=== PATIENT | female | born 1960 | race African-American/Black ===

== ENCOUNTER 2020-07-11 14:03 | Inpatient (IN) | payer MEDICARE, MEDICAID, SELFPAY ==
[2020-07-11] VITALS (10 sets, daily range): BP systolic 111–154; BP diastolic 55–100; PULSE 73–91; RESP 16–25; TEMP 36.1–36.3; O2SAT 89–94; BMI 54.5
--- NOTE | ~2020-07-11 | XR_ITS ---
EXAMINATION: XR chest 2V DATE: 07/11/2020 15:31 INDICATION: Shortness of breath. TECHNIQUE: Frontal and lateral views of the chest were obtained. COMPARISON: Chest 2 views 09/08/2019, chest CT 09/08/2019 FINDINGS: There is a diffuse interstitial pattern, consistent with mild pulmonary edema. No pleural e ffusion or pneumothorax. Cardiomegaly is noted. IMPRESSION: 1. Mild pulmonary edema. 2. Cardiomegaly. Reviewed, dictated and finalized at location A.
--- NOTE | ~2020-07-11 | XR_ITS ---
EXAMINATION: XR chest 1V portable DATE: 07/16/2020 20:19 INDICATION: Increasing hypoxia. TECHNIQUE: A single frontal view of the chest was obtained. COMPARISON: Chest single view 07/15/2020, chest CT 07/12/2020, 09/08/2019 FINDINGS: There are perihilar interstitial opacities in the lungs, consistent with mild pulmonary cara ma. No pleural effusion or pneumothorax. Cardiomegaly is noted. There is hilar and bilateral mediasti nal lymphadenopathy. IMPRESSION: 1. Mild pulmonary edema. 2. Cardiomegaly. 3. Chronic mediastinal and bilateral hilar lymphadenopathy, which may be reactive lymphadenopathy suc h as sarcoid or malignancy such as lymphoma. Reviewed, dictated and finalized at location A. IMPRESSION: 1. Mild pulmonary edema. 2. Cardiomegaly. 3. Chronic mediastinal and bilateral hilar lymphadenopathy, which may be reacti ve lymphadenopathy such as sarcoid or malignancy such as lymphoma.
--- NOTE | ~2020-07-11 | XR_ITS ---
XR chest 1V portable DATE: 07/18/2020 06:12 INDICATION: Hypoxia TECHNIQUE: Portable AP chest on 07/18/2020 at 0534 hours COMPARISON: 07/16/2020 portable AP chest at 2016 hours FINDINGS: There is cardiomegaly and pulmonary vascular congestion and redistribution, mild prominence of the minor fissure. Findings are consistent with mild congestive heart failure. No pleural effusio n or pneumothorax is evident. Bilateral hilar prominence; mediastinal and bilateral hilar lymphadenopathy was reported on 07/12/2020 CT pulmonary scan IMPRESSION: Mild congestive heart failure Reviewed, dictated and finalized at location A.
--- NOTE | ~2020-07-11 | CT_ITS ---
EXAMINATION: CTA chest PE protocol DATE: 07/12/2020 09:36 CDT INDICATION: Lung mass TECHNIQUE: Computed tomographic angiography (CTA) of the chest was performed with 100 mL Omnipaque-35 0 intravenous contrast. The dose-length product was 953.47 mGy-cm. Maximum intensity projection 3D-re constructions of the aorta and other arteries were constructed by the technologist on a separate work station. Automated exposure control and iterative reconstruction technique were employed. COMPARISON: CT dated 09/08/2019. FINDINGS: There are enlarged pulmonary arteries consistent with pulmonary hypertension. The study is technically adequate without evidence for pulmonary embolism. Cardiomegaly. No significant pleural or pericardial effusion. There is physiologic pericardial fluid. There is mediastinal and bilateral hil ar lymphadenopathy unchanged. 1 some mottle limits evaluation of the upper abdomen. No gross abnormal ities. There is emphysema. 13 mm right upper lobe nodule without significant change. There is a 7 mm left perifissural nodule, image 71 without significant change. Small wedge-shaped right middle lobe n odule, significantly decreased in size, likely atelectasis/scarring. There is dependent atelectasis. No endobronchial lesions. Groundglass nodule in the left upper lobe seen on prior examination not def initely visualized on the current study. 9 mm left lower lobe nodule, image 84, unchanged. Mild thora cic spondylosis. No acute osseous abnormality. IMPRESSION: 1. No evidence for pulmonary embolism. 2: Bilateral pulmonary nodules are stable measuring up to 13 mm in the right upper lobe. Consider fol low-up PET/CT examination or CT chest in 6 months. 3: Moderate emphysema. 4: Mediastinal and bilateral hilar lymphadenopathy. Cannot exclude metastatic disease. 5: Pulmonary arterial hypertension. Reviewed, dictated and finalized at location A. IMPRESSION: 1. No evidence for pulmonary embolism. 2: Bilateral pulmonary nodules are stable measuring up to 13 mm in the right up per lobe. Consider follow-up PET/CT examination or CT chest in 6 months. 3: Moderate emphysema. 4: Mediastinal and bilateral hilar lymphadenopathy. Cannot exclude metastatic d isease. 5: Pulmonary arterial hypertension.
--- NOTE | ~2020-07-11 | XR_ITS ---
EXAMINATION: XR chest 1V portable EXAM DATE: 07/15/2020 05:55 INDICATION: CHF. TECHNIQUE: Portable AP frontal chest x-ray was obtained. There is no prior study for comparison. FINDINGS: The cardiac silhouette is enlarged. There is pulmonary vascular congestion. The main, centr al pulmonary arteries are dilated which can indicate elevated pulmonary arterial pressure, pulmonary arterial hypertension. There is indistinct reticulation with a bibasal predominance which may indica te pulmonary edema. Right upper lobe pulmonary nodule measuring about 1 cm. There are bony degenerati ve changes. IMPRESSION: 1. Congestive changes, consistent with mild CHF exacerbation. 2. Right upper lobe nodule. Reviewed, dictated and finalized at location A.
--- NOTE | 2020-07-11 14:13 | ECG_ITS ---
Measurements Intervals [place] Rate: 80 P: 50 ND: 149 QRS: -21 QRSD: 99 T: 95 QT: 379 QTc: 437 Interpretive Statements SINUS RHYTHM WITH SINUS ARRHYTHMIA FREQUENT ATRIAL PREMATURE COMPLEXES DELAYED PRECORDIAL R/S TRANSITION BORDERLINE ST-T WAVE ABNORMALITY- HIGH LATERAL LEADS BASELINE ARTIFACT- I, II, III, AVR, AVL, AVF ABNORMAL ECG Electronically Signed On 07-11-2020 14:25:58 CDT by Jett Hopkins D.O.
--- NOTE | 2020-07-11 14:54 | PC.NURSE ---
PT DIFFICULT STICK, STUCK BY FLAKO AND RN, PHLEBOTOMY CONTACTED AT THIS TIME.
--- NOTE | 2020-07-11 14:55 | PC.NURSE ---
called lab to draw blood at 1455
[2020-07-11 14:58] LABS: Alveolar/Arterial O2 Gradient 136.2 mmHg; Base Excess ABG 1.7 mEq/l (+/-2.0); Carboxyhemoglobin 1.4 % THb (0-2.0); Fractional Inspired Oxygen 36 %; HCO3 ABG 27.3 mEq/l (22.0-26.0); Methemoglobin ABG 0.4 %THb (0-1.5); Oxygen Content ABG 10.5 %vol (16.0-22.0); Oxygen Saturation ABG 91.6 % (95.0-100.0); Oxyhemoglobin 86.1 % THb (90.0-100.0); PCO2 ABG 48.6 mmHg (35.0-45.0); PO2 ABG 64.1 mmHg (80.0-100.0); PO2 FiO2 Ratio Arterial Blood 1.78 %; Reduced Hemoglobin 12.1 %THb (0-5.0); Total Hemoglobin 8.6 g/dL (12.0-18.0); pH ABG 7.368 (7.350-7.450)
[2020-07-11 15:00] LABS: Site Drawn RIGHT BRACHIAL
[2020-07-11 15:01] LABS: Device NASAL CANNULA
--- NOTE | 2020-07-11 15:13 | PC.NURSE ---
PHLEBOTOMY AT BEDSIDE AT THIS TIME, SHE HAS BEEN ABLE TO OBTAIN THE BLOODWORK AND HAS SENT IT.
[2020-07-11 15:20] LABS: Basophils Percent Auto 0.2 % (0.2-1.2); Eosinophils Absolute Auto 0.1 K/mm3 (0-0.3); Eosinophils Percent Auto 0.6 % (0-4.4); Hematocrit 25.5 % (37.0-47.0); Hemoglobin 7.5 g/dL (12.0-15.0); Immature Granulocyte Absolute 0.03 K/mm3 (0.00-0.031); Immature Granulocyte Percent A 0.4 % (0-0.5); Lymphocytes Absolute Auto 1.06 K/mm3 (0.9-3.2); Lymphocytes Percent Auto 12.4 % (18.3-44.2); Mean Corpuscular HGB Conc 29.4 g/dl (32-36); Mean Corpuscular Hemoglobin 19.9 pg (26-34); Mean Corpuscular Volume 67.8 fl (80-100); Mean Platelet Volume 9.8 fl (7.4-10.4); Monocytes Absolute Auto 0.4 K/mm3 (0.1-0.6); Monocytes Percent Auto 4.4 % (2.6-8.5); Platelet Count Result 254 k/mm3 (150-375); Red Blood Count 3.76 M/mm3 (4.2-5.4); Red Cell Distribution Width 18.9 % (11.5-14.5); White Blood Count 8.6 K/mm3 (4.5-10.0)
[2020-07-11 15:31] LABS: Anion Gap 6 mmol/L (8-16); Blood Urea Nitrogen 19 mg/dL (7-17); Carbon Dioxide 28 mmol/L (22-30); Chloride 108 mmol/L (98-107); Estimated CRCL calculation 85 ml/min; Estimated Glomerular Filt Rate > 60; Glucose 99 mg/dL (65-105); Potassium 3.4 mmol/L (3.4-5.0); Sodium 142 mmol/L (137-145)
[2020-07-11 15:40] LABS: NT Pro B Type Natriuretic Pept 1810 PG/ML (5-100)
[2020-07-11 15:45] LABS: Platelet Estimate Adequate (Adequate)
[2020-07-11 15:46] LABS: Anisocytosis 2+ (NORMAL); Hypochromasia 1+ (NORMAL)
--- NOTE | 2020-07-11 15:49 | ED.SOB ---
HPI - SOB/Dyspnea General Chief Complaint: Shortness of Breath/Dyspnea Stated Complaint: sob, abd pain Time Seen by Provider: 07/11/20 14:17 History of Present Illness HPI Narrative: Patient is a 60-year-old female with history of COPD and CHF who presents the ER with increased shortness of breath over the last week. Reports she has become more swollen in her legs and her abdomen. Reports compliant with her home meds. Denies any new fevers or chills or productive cough. Shortness of breath is worsened with exertion as well as lying down flat. Patient currently requiring 4 and half liters of oxygen and satting in the low 90s. Related Data Home Medications Medication Instructions Recorded Confirmed amlodipine 10 mg PO DAILY 09/08/19 01/08/20 aspirin [Aspir-81] 81 mg PO DAILY 09/08/19 01/08/20 atorvastatin 40 mg PO DAILY 09/08/19 01/08/20 ezetimibe 10 mg PO DAILY 09/08/19 01/08/20 glimepiride 2 mg PO DAILY 09/08/19 01/08/20 metformin 500 mg PO DAILY 09/08/19 01/08/20 hydrochlorothiazide 12.5 mg capsule 12.5 mg PO DAILY 10/08/19 01/08/20 meloxicam 7.5 mg PO DAILY 07/11/20 polysaccharide iron complex 150 mg PO DAILY 07/11/20 [Poly-Iron] Allergies Allergy/AdvReac Type Severity Reaction Status Date / Time Penicillins Allergy Hives Verified 01/08/20 10:58 Sulfa (Sulfonamide Allergy unknown Verified 01/08/20 10:58 Antibiotics) Review of Systems Review of Systems: All systems reviewed & are unremarkable except as noted in HPI and below Constitutional: Constitutional: Denies chills, Denies fever(s) and Reports weakness ENT: Denies nasal congestion and Denies sore throat Cardiovascular: Cardiovascular: Denies chest pain, Denies rapid heart rate and Denies radiating jaw, neck or arm pain Respiratory: Respiratory: Denies cough, Reports dyspnea and Denies wheezing Comments: Orthopnea Gastrointestinal: Gastrointestinal: Denies abdominal pain, Denies nausea and Denies vomiting (Edema) Musculoskeletal: Comments: Edema PMFSH Social History Social History Social History: The patient typically smokes 1 pack a cigarettes a day for 35 years. Since she has been ill she has not been smoking. She has 3 children. She is unemployed at this time. She does not have a durable power ip technology transactions attorney. But wants to be a full code.Pt stated have not smoked in a month and a half. Smoking packs per day: 3 Smoking cigarettes per day: 60.0 Years smoked: 20 Smoking pack-years: 60.00 Smoking status: Former smoker Tobacco type: cigarettes Smoking end date: 09/06/19 Alcohol intake: current Substance use: never Additional living arrangements comments: Lives with her sister. 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 Gender identity (if verbalized by the patient): Female Spiritual care concerns: No Agree to blood products: Yes Exam Narrative: Exam Narrative: GENERAL: Well-appearing, well-nourished, and in no acute distress. HEAD: Normocephalic, atraumatic. ENT: Mucous membranes moist. CHEST: Clear to auscultation. No respiratory distress. HEART: Regular rate and rhythm. Normal peripheral pulses. ABDOMEN: Soft, nontender, nondistended. EXTREMITIES: Normal range of motion. 2+ edema. SKIN: Warm, dry, no rash. NEURO: Alert and oriented x3. Course Course Emergency Course: Patient informed of results. Currently diuresing. Vital Signs Vital signs: Vital Signs Temperature 97.4 F L 07/11/20 14:02 Pulse Rate 85 07/11/20 14:02 Respiratory Rate 17 07/11/20 14:02 Blood Pressure 135/91 H 07/11/20 14:02 Pulse Oximetry 89 L 07/11/20 14:02 Temperature 97.4 F L 07/11/20 14:02 Pulse Rate 76 07/11/20 18:03 Respiratory Rate 16 07/11/20 18:03 Blood Pressure 153/99 H 07/11/20 18:03 Pulse Oximetry
--- NOTE | 2020-07-11 15:50 | PC.NURSE ---
PT CURRENTLY ON 4L VIA NC TO MAINTAIN O2 SATURATION OF 93%.
[2020-07-11] MEDS: FUROSEMIDE INJ 40 MG/4 ML VIAL IV PUSH ×2 (15:55→21:32)
--- NOTE | 2020-07-11 18:27 | ADMGEN ---
This patient, Maura Hill, was admitted to 2 Medical Room 240-. Patient/family oriented to hospital policies and general routines including ID bracelet, bed and alarms, visiting hours, pain management, procedures, bathroom and other care routines, personal items, smoking policy, room service/diet, and visiting hours. Valuables list has been completed. Information on how to activate the Rapid Response Team has been discussed. Patient/Family are encouraged to report perceived risks to care and to ask questions if they do not understand what they are told or what they should do.
--- NOTE | 2020-07-11 22:56 | PM.IMHP ---
H&P: HPI History of Present Illness Date/Time: 07/11/20 22:56 Chief complaint: chf exacerbation,increased o2 requirement Narrative: Maura Hill is a 60 year old female who has a history of pulmonary edema and COPD. She is chronic hypoxia and she is on oxygen at 2 L per nasal cannula at home. She was here back in August and was treated for pneumonia and also had an echo at that time which was unremarkable. However the patient does have pulmonary edema. She does not follow with a porcelain slusher. She does follow-up with the nurse assessor. The patient was also found to have a 11 mm lung nodule in the right upper lobe. The patient was supposed to have a follow-up CT but [place] epidemic occurred and she was not able to get her CT scan. She has been taking her home medications without difficulty. She is not on any Lasix which she is on hydrochlorothiazide and stated that this was not helping her out much. It was highly suspicious for her to have sleep apnea but did not complete the test. Her chest x-ray was read as mild pulmonary edema and cardiomegaly. She was started on IV Lasix in the emergency room. She had IV fluids infusing when she came from the emergency room and they have been stopped. The patient stated that she has been more short of breath the last week in that her abdomen has been more distended and her legs have been is more swollen. She had to increase her oxygen up to 4 L per nasal cannula and is typically on 2 L per nasal cannula. She was started on home oxygen after she was diagnosed with pneumonia back in August of 2019. Date of service 07/11/2020 Review of Systems Review of Systems: All systems reviewed & are unremarkable except as noted in HPI and below Constitutional: Constitutional: Reports as per HPI and Reports no additional constitutional complaints Eyes: Eyes: Reports as per HPI and Reports no additional eye complaints ENT: Reports system reviewed and no additional complaints, except as documented and Reports Normal hearing present Cardiovascular: Cardiovascular: Reports no additional cardiovascular complaints Respiratory: Respiratory: Reports no additional respiratory complaints and Reports no additional respiratory complaints Gastrointestinal: Gastrointestinal: Reports as per HPI and Reports no additional gastrointestinal complaints Musculoskeletal: Musculoskeletal: Reports no additional musculoskeletal complaints Integumentary/Breasts: Skin/Breast: Reports system reviewed and no additional complaints, except as docu and Reports as per HPI Neurologic: Reports system reviewed and no additional complaints, except as documented, Reports as per HPI and Reports Normal hearing present Psychiatric: Psychiatric: Reports no additional psychiatric complaints and Reports as per HPI Endocrine: Endocrine: Reports no additional endocrine complaints Hematologic/Lymphatic: Hematologic/Lymphatic: Reports no additional hematologic/lymphatic complaints Allergic/Immunologic: Allergic/Immunologic: Reports no additional allergic/immunologic complaints REPLACED BY [facility] Past Medical History Medical History (Updated 07/11/20 @ 23:03 by Sarah London NP) Adrenal mass Anemia COPD (chronic obstructive pulmonary disease) Diabetes mellitus DM2 (diabetes mellitus, type 2) Hyperlipidemia Hypertension Lung nodule 11 mm Tobacco abuse Surgical History Surgical History (Updated 07/11/20 @ 23:03 by Sarah London NP) H/O section x3 History of appendectomy Hx of cholecystectomy Family History Family History Grandparent Congestive heart failure Mother HTN (hypertension) with goal to be determined Hyperlipidemia Cancer Sibling Age: 53 HTN (hypertension) with goal to be determined Asthma Lupus Sibling Age: 50 Diabetes mellitus Heart disease Social History Social History (Updated 07/11/20 @ 23:08 by Sarah London NP) Social History
[2020-07-12] VITALS (11 sets, daily range): BP systolic 110–118; BP diastolic 58–70; PULSE 66–81; RESP 18–22; TEMP 36.3–36.7; O2SAT 93–99
[2020-07-12] MEDS: ALBUTEROL SULFATE (*SP) AEROSOL 1 PUFF 2 PUFF INHALATION ×4 (00:24→20:17)
[2020-07-12 02:20] LABS: Glucose Point of Care 116 (65-105)
[2020-07-12 05:38] LABS: Basophils Percent Auto 0.4 % (0.2-1.2); Eosinophils Absolute Auto 0.1 K/mm3 (0-0.3); Eosinophils Percent Auto 0.9 % (0-4.4); Hemoglobin 7.2 g/dL (12.0-15.0); Immature Granulocyte Absolute 0.04 K/mm3 (0.00-0.031); Immature Granulocyte Percent A 0.5 % (0-0.5); Lymphocytes Absolute Auto 1.35 K/mm3 (0.9-3.2); Mean Corpuscular HGB Conc 28.8 g/dl (32-36); Mean Corpuscular Volume 69.4 fl (80-100); Mean Platelet Volume 11.2 fl (7.4-10.4); Monocytes Absolute Auto 0.5 K/mm3 (0.1-0.6); Monocytes Percent Auto 5.3 % (2.6-8.5); Neutrophils Absolute Auto 6.5 K/mm3 (1.3-6.7); Neutrophils Percent Auto 76.9 % (45.5-73.1); Platelet Count Result 271 k/mm3 (150-375); Red Cell Distribution Width 18.9 % (11.5-14.5); White Blood Count 8.4 K/mm3 (4.5-10.0)
[2020-07-12 05:52] LABS: Hypochromasia 1+ (NORMAL); Microcytosis 1+ (NORMAL); Platelet Estimate Adequate (Adequate)
[2020-07-12 05:56] LABS: Anion Gap 7 mmol/L (8-16); Blood Urea Nitrogen 19 mg/dL (7-17); Calcium 8.8 mg/dL (8.4-10.2); Carbon Dioxide 28 mmol/L (22-30); Chloride 104 mmol/L (98-107); Estimated CRCL calculation 74 ml/min; Estimated Glomerular Filt Rate > 60; Glucose 79 mg/dL (65-105); Magnesium 1.9 mg/dL (1.6-2.3); Potassium 3.2 mmol/L (3.4-5.0); Sodium 139 mmol/L (137-145)
[2020-07-12] MEDS: EZETIMIBE 10 MG TABLET PO (08:52)
[2020-07-12] MEDS: POTASSIUM CHLORIDE 20 MEQ TABLET 40 MEQ PO ×2 (08:52→16:59)
[2020-07-12] MEDS: POLYSACCHARIDE IRON COMPLEX 150 MG CAPSULE PO (08:52)
[2020-07-12] MEDS: MELOXICAM 7.5 MG TABLET PO (08:53)
[2020-07-12] MEDS: ATORVASTATIN 40 MG TABLET PO (08:53)
[2020-07-12] MEDS: ASPIRIN 81 MG ENTERIC TABLET PO (08:53)
[2020-07-12] MEDS: FUROSEMIDE INJ 40 MG/4 ML VIAL IV PUSH ×2 (08:54→20:14)
[2020-07-12] MEDS: amLODIPine BESYLATE 5 MG TABLET 10 MG PO (08:54)
--- NOTE | 2020-07-12 09:24 | PCRCNOTE ---
pt respiratory tx not given at this time/pt off floor for test
[2020-07-12 10:47] LABS: Glucose Point of Care 87 (65-105)
[2020-07-12 12:28] LABS: Glucose Point of Care 137 (65-105)
--- NOTE | 2020-07-12 12:31 | PM.IMPN ---
Progress Note: A&P Assessment and Plan (1) CHF exacerbation: Code(s): I50.9 - Heart failure, unspecified Status: Chronic Assessment and Plan: Patient had an echo back in August of last year which is unremarkable. The patient is on a heart healthy diet now. Continue with IV Lasix for now. She is just on hydrochlorothiazide at home. . Repeat echo pending.. . (2) Hypersomnia: Code(s): G47.10 - Hypersomnia, unspecified Status: Acute Assessment and Plan: It is highly suggestive that the patient has obstructive sleep apnea. . She has not had any fever chills. lobe number neuro she apparently has not been able to lower the obtain had a sleep study due to the COVID pattern him here (3) Hypertension: Qualifiers: Hypertension type: essential hypertension Qualified Code(s): I10 - Essential (primary) hypertension Code(s): I10 - Essential (primary) hypertension Status: Acute Assessment and Plan: Her hydrochlorothiazide is on hold at this time. She is now on Lasix. Continue with her amlodipine. (4) Obesity: Qualifiers: Obesity type: due to excess calories Obesity classification: adult class 3 (BMI >= 40) Serious obesity comorbidity presence: with serious comorbidity Body mass index: BMI 45.0-49.9 Qualified Code(s): E66.01 - Morbid (severe) obesity due to excess calories; Z68.42 - Body mass index (BMI) 45.0-49.9, adult Code(s): E66.9 - Obesity, unspecified Status: Acute Assessment and Plan: Patient will need to be instructed on a heart healthy diet. Her BMI is 54. (5) COPD (chronic obstructive pulmonary disease): Qualifiers: COPD type: unspecified COPD Qualified Code(s): J44.9 - Chronic obstructive pulmonary disease, unspecified Code(s): J44.9 - Chronic obstructive pulmonary disease, unspecified Status: Chronic Assessment and Plan: Continue with her inhalers that she has been on At home. (6) Lung nodule: Code(s): R91.1 - Solitary pulmonary nodule Status: Chronic Assessment and Plan: The patient was supposed to have a follow-up CT for her lung nodule but was unable to have it completed since the COVID outbreak but repeat CTA today revealed nodules unchanged and no pulmonary emboli and COPD with evidence of pulmonary hypertension (7) DM2 (diabetes mellitus, type 2): Code(s): E11.9 - Type 2 diabetes mellitus without complications Status: Chronic Assessment and Plan: Accu-Cheks AC and HS. sliding scale and hold oral hypoglycemics (8) Hyperlipidemia: Qualifiers: Hyperlipidemia type: unspecified Qualified Code(s): E78.5 - Hyperlipidemia, unspecified Code(s): E78.5 - Hyperlipidemia, unspecified Status: Chronic Assessment and Plan: continue Zetia. (9) Microcytic anemia: Code(s): D50.9 - Iron deficiency anemia, unspecified Status: Acute Assessment and Plan: 09/17 iron studies were compatible with iron deficiency anemia with hemoglobin around 10. Hgb has fallen further and the MCV is lower will be check iron studies, DC meloxicam, p.o. Protonix, stool for occult blood, IV Venofer, and GI evaluation. sure ordered degree of anemia could have precipitated more heart failure and shortness of breath also with transfuse if drops further Subjective Date/time seen: 07/12/20 12:31 Interval history: Date of visit 07/12. 60-year-old diabetic with known COPD with chronic respiratory failure on 2 L nasal cannula and diastolic heart failure who presented to the hospital with increasing edema and shortness of breath. Found to be hypoxic and diuresed and increased oxygen she feels better today. No chest pain or palpitation, CTA today no pulmonary emboli or infiltrates Exam Narrative: Exam Narrative: blood pressure 112/60 pulse is 70 saturating 95% on 5 L nasal cannula afebrile pupil equal abe
[2020-07-12 13:20] LABS: Iron 25 ug/dL (37-170)
[2020-07-12 13:30] LABS: Percent Iron Saturation 5 % (20-50)
[2020-07-12 13:56] LABS: Ferritin 7.39 ng/mL (11.1-264)
[2020-07-12 14:24] LABS: Hemoglobin A1C 5.7 % (<5.7)
[2020-07-12 17:04] LABS: Glucose Point of Care 106 (65-105)
[2020-07-12 22:07] LABS: Glucose Point of Care 135 (65-105)
[2020-07-13] VITALS (13 sets, daily range): BP systolic 104–121; BP diastolic 54–73; PULSE 68–87; RESP 16–20; TEMP 36.3–36.4; O2SAT 88–95
--- NOTE | 2020-07-13 | ECHO_ITS ---
Patient Info Name: Maura Hill Age: 60 years : 1960 Gender: Female Ht: 64 in Wt: 317 lbs BSA: 2.64 m2 HR: 73 bpm BP: 119 / 54 mmHg Heart Rhythm: Sinus Rhythm Technical Quality: Good Exam Date: 07/13/2020 11:06 AM Exam Location: [facility] Patient Status: Inpatient Admit Date: 07/12/2020 Staff Ordering Physician: Sarah London NP Business Technology Analyst: Aniket Kruse, FLAVIA, RT Attending Provider: Ash Otero MD Referring Physician: Surya MICHELLE; Exam Type: CA echo doppler color flow Study Info Indications J81.0 - Acute pulmonary edema Complete two-dimensional, color flow and Doppler transthoracic echocardiogram is performed. Summary 1. Complete two-dimensional, color flow and Doppler transthoracic echocardiogram is performed. 2. There is mild concentric increased left ventricular wall thickness. 3. Left ventricular systolic function is hyperdynamic, estimated at >70%. 4. Left atrial chamber dimension is mildly enlarged. 5. No significant valvular abnormalities. 6. Compared with echocardiogram from August of 2019 there is no difference. Left Ventricle Left ventricular chamber dimension is normal. Left ventricular systolic function is hyperdynamic, estimated at >70%. There is mild concentric increased left ventricular wall thickness. The left ventricular diastolic function is grade I diastolic dysfunction. Right Ventricle Right ventricular chamber dimension is normal. Left Atria Left atrial chamber dimension is mildly enlarged. Right Atria Right atrial chamber dimension is normal. Aortic Valve The aortic valve is normal. Pulmonic Valve The pulmonic valve is normal. There is trace pulmonic regurgitation. Mitral Valve The mitral valve has normal leaflets. The mitral valve annulus is severely calcified. Tricuspid Valve The tricuspid valve leaflets are normal. There is trace tricuspid valve regurgitation. Pericardium/Pleural The pericardium appears normal. Aorta The aortic root size at the sinus of Valsalva is normal. Left Ventricular Outflow Tract Name Value Normal LVOT 2D LVOT Diameter 2.0 cm LVOT Doppler LVOT Peak Gradient 8 mmHg LVOT Mean Gradient 4 mmHg LVOT VTI 24 cm LVOT VTI/AV VTI Ratio 0.5 LVOT Stroke Volume 75 ml LVOT CO 6.0 l/min LVOT CI 2.3 l/min/m2 Mitral Valve Name Value Normal MV Doppler MV Decel Ashe 389 cm/s2 MV PHT 83 ms MV Area (PHT) 2.6 cm2 4.0-5.0 MV Diastolic Function MV E Peak Velocity
[2020-07-13 05:50] LABS: Basophils Percent Auto 0.3 % (0.2-1.2); Eosinophils Absolute Auto 0.1 K/mm3 (0-0.3); Eosinophils Percent Auto 1.2 % (0-4.4); Hematocrit 24.7 % (37.0-47.0); Hemoglobin 7.1 g/dL (12.0-15.0); Immature Granulocyte Absolute 0.03 K/mm3 (0.00-0.031); Immature Granulocyte Percent A 0.3 % (0-0.5); Lymphocytes Absolute Auto 1.29 K/mm3 (0.9-3.2); Lymphocytes Percent Auto 14.6 % (18.3-44.2); Mean Corpuscular HGB Conc 28.7 g/dl (32-36); Mean Corpuscular Hemoglobin 20.1 pg (26-34); Mean Corpuscular Volume 69.8 fl (80-100); Mean Platelet Volume 10.7 fl (7.4-10.4); Monocytes Absolute Auto 0.5 K/mm3 (0.1-0.6); Monocytes Percent Auto 5.8 % (2.6-8.5); Neutrophils Absolute Auto 6.9 K/mm3 (1.3-6.7); Neutrophils Percent Auto 77.8 % (45.5-73.1); Nucleated Red Blood Cells Perc 0.2 % (0.0-0.2); Platelet Count Result 247 k/mm3 (150-375); Red Blood Count 3.54 M/mm3 (4.2-5.4); Red Cell Distribution Width 18.7 % (11.5-14.5); White Blood Count 8.8 K/mm3 (4.5-10.0)
[2020-07-13 06:10] LABS: Anion Gap 5 mmol/L (8-16); Blood Urea Nitrogen 22 mg/dL (7-17); Calcium 8.8 mg/dL (8.4-10.2); Carbon Dioxide 33 mmol/L (22-30); Chloride 101 mmol/L (98-107); Estimated CRCL calculation 67 ml/min; Estimated Glomerular Filt Rate > 60; Glucose 98 mg/dL (65-105); Potassium 3.6 mmol/L (3.4-5.0); Sodium 139 mmol/L (137-145)
[2020-07-13 07:46] LABS: Glucose Point of Care 85 (65-105)
[2020-07-13] MEDS: amLODIPine BESYLATE 5 MG TABLET 10 MG PO (08:07)
[2020-07-13] MEDS: EZETIMIBE 10 MG TABLET PO (08:07)
[2020-07-13] MEDS: ATORVASTATIN 40 MG TABLET PO (08:07)
[2020-07-13] MEDS: POTASSIUM CHLORIDE 20 MEQ TABLET 40 MEQ PO (08:07)
[2020-07-13] MEDS: PANTOPRAZOLE 40 MG TABLET PO (08:07)
[2020-07-13] MEDS: ASPIRIN 81 MG ENTERIC TABLET PO (08:07)
[2020-07-13] MEDS: FUROSEMIDE INJ 40 MG/4 ML VIAL IV PUSH (08:07)
[2020-07-13] MEDS: ALBUTEROL SULFATE (*SP) AEROSOL 1 PUFF 2 PUFF INHALATION ×4 (09:27→20:42)
[2020-07-13 11:32] LABS: Glucose Point of Care 95 (65-105)
--- NOTE | 2020-07-13 15:43 | PM.IMPN ---
Progress Note: A&P Assessment and Plan (1) CHF exacerbation: Code(s): I50.9 - Heart failure, unspecified Status: Chronic Assessment and Plan: Patient had an echo back in August of last year which is unremarkable and repeat no change with EF 70% and grade 1 DD. The patient is on a heart healthy diet now. Continue with IV Lasix for now but decrease to daily with Bun and creatinine trending up some . . . (2) Hypersomnia: Code(s): G47.10 - Hypersomnia, unspecified Status: Acute Assessment and Plan: It is highly suggestive that the patient has obstructive sleep apnea. . She has not had any fever chills. she apparently has not been able to obtain a sleep study due to the COVID pattern him here (3) Hypertension: Qualifiers: Hypertension type: essential hypertension Qualified Code(s): I10 - Essential (primary) hypertension Code(s): I10 - Essential (primary) hypertension Status: Acute Assessment and Plan: Her hydrochlorothiazide is on hold at this time. She is now on Lasix. Continue with her amlodipine. bp well controlled (4) Obesity: Qualifiers: Obesity type: due to excess calories Obesity classification: adult class 3 (BMI >= 40) Serious obesity comorbidity presence: with serious comorbidity Body mass index: BMI 45.0-49.9 Qualified Code(s): E66.01 - Morbid (severe) obesity due to excess calories; Z68.42 - Body mass index (BMI) 45.0-49.9, adult Code(s): E66.9 - Obesity, unspecified Status: Acute Assessment and Plan: Patient will need to be instructed on a heart healthy diet. Her BMI is 54. (5) COPD (chronic obstructive pulmonary disease): Qualifiers: COPD type: unspecified COPD Qualified Code(s): J44.9 - Chronic obstructive pulmonary disease, unspecified Code(s): J44.9 - Chronic obstructive pulmonary disease, unspecified Status: Chronic Assessment and Plan: Continue with her inhalers that she has been on At home. (6) Lung nodule: Code(s): R91.1 - Solitary pulmonary nodule Status: Chronic Assessment and Plan: The patient was supposed to have a follow-up CT for her lung nodule but was unable to have it completed since the COVID outbreak but repeat CTA revealed nodules unchanged and no pulmonary emboli and COPD with evidence of pulmonary hypertension (7) DM2 (diabetes mellitus, type 2): Code(s): E11.9 - Type 2 diabetes mellitus without complications Status: Chronic Assessment and Plan: Accu-Cheks AC and HS. sliding scale and holding oral hypoglycemics FBS today 98 (8) Hyperlipidemia: Qualifiers: Hyperlipidemia type: unspecified Qualified Code(s): E78.5 - Hyperlipidemia, unspecified Code(s): E78.5 - Hyperlipidemia, unspecified Status: Chronic Assessment and Plan: continue Zetia. (9) Microcytic anemia: Code(s): D50.9 - Iron deficiency anemia, unspecified Status: Acute Assessment and Plan: 09/17 iron studies were compatible with iron deficiency anemia with hemoglobin around 10. Hgb has fallen further and the MCV is lower with ferriton only 7 and 5% sat. DC meloxicam, p.o. Protonix, stool for occult blood, IV Venofer daily for 4 days , and GI consultation. degree of anemia could have precipitated more heart failure and shortness of breath also with transfuse if drops further Subjective Date/time seen: 07/13/20 15:43 Interval history: Date of visit 07/13. 60-year-old diabetic with known COPD with chronic respiratory failure on 2 L nasal cannula and diastolic heart failure who presented to the hospital with increasing edema and shortness of breath. Found to be hypoxic and diuresed and increased oxygen she feels better again today. No chest pain or palpitation, CTA no pulmonary emboli or infiltrates , echo no change from 09/17 Exam Narrative: Exam Narrative: blood pre
[2020-07-13 16:25] LABS: Glucose Point of Care 142 (65-105)
--- NOTE | 2020-07-13 16:26 | WPDGICN ---
Assessment and Plan Assessment and plan (1) PATRICIA (iron deficiency anemia): Code(s): D50.9 - Iron deficiency anemia, unspecified Status: Acute Assessment and Plan: Patient has significant iron deficiency anemia. Likely this precipitated I upper congestive heart failure. Would suggest that this be evaluated with colonoscopy and EGD after her COPD and breathing status improves. I would anticipate doing these procedures in 2 or 3 days after her status has improved somewhat clinically. Perhaps Monday or . We will follow with you in the antrum. Stool Hemoccult has been ordered and is pending at this time. Iron replacement with [place] for is to be instituted and I would agree with these measures. Continue to monitor hemoglobin closely in the interim period (2) Hypertension: Qualifiers: Hypertension type: essential hypertension Qualified Code(s): I10 - Essential (primary) hypertension Code(s): I10 - Essential (primary) hypertension Status: Acute (3) Obesity: Qualifiers: Obesity type: due to excess calories Obesity classification: adult class 3 (BMI >= 40) Serious obesity comorbidity presence: with serious comorbidity Body mass index: BMI 45.0-49.9 Qualified Code(s): E66.01 - Morbid (severe) obesity due to excess calories; Z68.42 - Body mass index (BMI) 45.0-49.9, adult Code(s): E66.9 - Obesity, unspecified Status: Acute (4) DM2 (diabetes mellitus, type 2): Code(s): E11.9 - Type 2 diabetes mellitus without complications Status: Chronic (5) COPD (chronic obstructive pulmonary disease): Qualifiers: COPD type: unspecified COPD Qualified Code(s): J44.9 - Chronic obstructive pulmonary disease, unspecified Code(s): J44.9 - Chronic obstructive pulmonary disease, unspecified Status: Chronic GI Consult Note Consult date/time: 07/13/20 16:26 HPI: Maura Hill is a 60 year old female I am asked to see at the request of the hospitalist service. Patient admitted to the hospital with congestive heart failure. She has an underlying history of obesity diabetes and COPD. Patient was found to have rather profound microcytic anemia with iron deficient indices. Patient denies any obvious signs of GI bleeding. Weight appetite bowel movements are normal. She denies any obvious blood. She has had no bruising. No nose bleeds or blood in her urine. She denies abdominal pain. She states over the last several days a being hospitalized her shortness of breath has improved but she still has significant dyspnea on exertion. There is no family history of colon or rectal disease. Review of Systems Review of Systems: All systems reviewed & are unremarkable except as noted in HPI and below PMFSH Past Medical History Medical History Adrenal mass Anemia COPD (chronic obstructive pulmonary disease) Diabetes mellitus DM2 (diabetes mellitus, type 2) Hyperlipidemia Hypertension Lung nodule 11 mm Tobacco abuse Surgical History Surgical History (Updated 07/11/20 @ 23:03 by Sarah London NP) H/O section x3 History of appendectomy Hx of cholecystectomy Family History Family History Grandparent Congestive heart failure Mother HTN (hypertension) with goal to be determined Hyperlipidemia Cancer Sibling Age: 53 HTN (hypertension) with goal to be determined Asthma Lupus Sibling Age: 50 Diabetes mellitus Heart disease Social History Social History (Updated 07/11/20 @ 23:08 by Sarah London NP) Social History: The patient typically smoked 1 pack a cigarettes a day for 35 years. she said she stop smoking August of 2019. She has 3 children. She is unemployed at this time. 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 But wants to be a full code. She became disabled many years ago 2007 when she
[2020-07-13 20:00] LABS: Glucose Point of Care 112 (65-105)
[2020-07-14] VITALS (12 sets, daily range): BP systolic 102–118; BP diastolic 53–66; PULSE 68–89; RESP 18–20; TEMP 36.6–36.8; O2SAT 85–93
[2020-07-14 05:28] LABS: Basophils Percent Auto 0.2 % (0.2-1.2); Eosinophils Absolute Auto 0.1 K/mm3 (0-0.3); Eosinophils Percent Auto 1.2 % (0-4.4); Hematocrit 24.9 % (37.0-47.0); Immature Granulocyte Absolute 0.03 K/mm3 (0.00-0.031); Immature Granulocyte Percent A 0.3 % (0-0.5); Lymphocytes Absolute Auto 1.29 K/mm3 (0.9-3.2); Lymphocytes Percent Auto 13.4 % (18.3-44.2); Mean Corpuscular HGB Conc 28.1 g/dl (32-36); Mean Corpuscular Hemoglobin 19.4 pg (26-34); Mean Platelet Volume 10.4 fl (7.4-10.4); Monocytes Absolute Auto 0.7 K/mm3 (0.1-0.6); Monocytes Percent Auto 7.3 % (2.6-8.5); Neutrophils Absolute Auto 7.5 K/mm3 (1.3-6.7); Neutrophils Percent Auto 77.6 % (45.5-73.1); Nucleated Red Blood Cells Absolute Auto 0.1 K/mm3 (0.0-0.012); Nucleated Red Blood Cells Perc 0.6 % (0.0-0.2); Platelet Count Result 245 k/mm3 (150-375); Red Blood Count 3.61 M/mm3 (4.2-5.4); Red Cell Distribution Width 18.9 % (11.5-14.5); White Blood Count 9.6 K/mm3 (4.5-10.0)
[2020-07-14 05:43] LABS: Anion Gap 5 mmol/L (8-16); Blood Urea Nitrogen 21 mg/dL (7-17); Calcium 8.7 mg/dL (8.4-10.2); Carbon Dioxide 32 mmol/L (22-30); Chloride 103 mmol/L (98-107); Estimated CRCL calculation 74 ml/min; Estimated Glomerular Filt Rate > 60; Glucose 99 mg/dL (65-105); Sodium 140 mmol/L (137-145)
[2020-07-14 06:19] LABS: Anisocytosis 1+ (NORMAL); Hypochromasia 2+ (NORMAL); Platelet Estimate Adequate (Adequate)
[2020-07-14 07:53] LABS: Glucose Point of Care 83 (65-105)
[2020-07-14] MEDS: amLODIPine BESYLATE 5 MG TABLET 10 MG PO (08:40)
[2020-07-14] MEDS: ATORVASTATIN 40 MG TABLET PO (08:41)
[2020-07-14] MEDS: PANTOPRAZOLE 40 MG TABLET PO (08:41)
[2020-07-14] MEDS: EZETIMIBE 10 MG TABLET PO (08:41)
[2020-07-14] MEDS: ASPIRIN 81 MG ENTERIC TABLET PO (08:41)
[2020-07-14] MEDS: FUROSEMIDE INJ 40 MG/4 ML VIAL IV PUSH (08:41)
[2020-07-14] MEDS: ALBUTEROL SULFATE (*SP) AEROSOL 1 PUFF 2 PUFF INHALATION ×2 (09:47→20:23)
[2020-07-14 11:23] LABS: Glucose Point of Care 96 (65-105)
--- NOTE | 2020-07-14 12:38 | WPDGIPROGNO ---
Progress Note: A&P Assessment and Plan (1) PATRICIA (iron deficiency anemia): Code(s): D50.9 - Iron deficiency anemia, unspecified Status: Acute Assessment and Plan: Patient has iron deficiency anemia. Now on iron replacement. Plans for GI endoscopy to evaluate more thoroughly. Will plan to perform this tomorrow as her congestive heart failure has improved dramatically. Continue monitor hemoglobin after discharge to ensure resolution. Further recommendations may be given after endoscopy. (2) CHF exacerbation: Code(s): I50.9 - Heart failure, unspecified Status: Chronic (3) Hypersomnia: Code(s): G47.10 - Hypersomnia, unspecified Status: Acute (4) COPD (chronic obstructive pulmonary disease): Qualifiers: COPD type: unspecified COPD Qualified Code(s): J44.9 - Chronic obstructive pulmonary disease, unspecified Code(s): J44.9 - Chronic obstructive pulmonary disease, unspecified Status: Chronic (5) DM2 (diabetes mellitus, type 2): Code(s): E11.9 - Type 2 diabetes mellitus without complications Status: Chronic (6) Obesity: Qualifiers: Obesity type: due to excess calories Obesity classification: adult class 3 (BMI >= 40) Serious obesity comorbidity presence: with serious comorbidity Body mass index: BMI 45.0-49.9 Qualified Code(s): E66.01 - Morbid (severe) obesity due to excess calories; Z68.42 - Body mass index (BMI) 45.0-49.9, adult Code(s): E66.9 - Obesity, unspecified Status: Acute Subjective Date/time seen: 07/14/20 12:38 Patient alert much more comfortable at present. Breathing easily at rest. States she had a good bowel movement yesterday which made lot of difference. Tolerating low-salt diet without difficulties. Review of Systems Review of Systems: All systems reviewed & are unremarkable except as noted in HPI and below Exam Narrative: Exam Narrative: Physical exam reveals patient to be alert. Her vital signs are stable. Lungs reveal very few rales. Heart is without murmur. Abdomen is obese soft nontender with no organomegaly evident. Objective Data Vital Signs Vital Signs: Vital Signs - 24 hr 07/13/20 14:00 07/13/20 16:00 07/13/20 20:00 Temperature 97.5 F L Pulse Rate 77 74 68 Respiratory Rate 16 Blood Pressure 104/73 Pulse Oximetry 92 88 L 07/13/20 20:06 07/13/20 20:45 07/14/20 00:00 Temperature 97.6 F Pulse Rate 87 69 89 Respiratory Rate 16 20 Blood Pressure 121/58 L Pulse Oximetry 93 92 07/14/20 04:00 07/14/20 06:00 07/14/20 08:00 Temperature 98.1 F Pulse Rate 74 79 77 Respiratory Rate 18 Blood Pressure 106/53 L Pulse Oximetry 91 07/14/20 08:44 07/14/20 10:23 Temperature Pulse Rate Respiratory Rate Blood Pressure 110/60 Pulse Oximetry 93 Intake/Output Intake/Output: Intake & Output 07/11/20 07/12/20 07/13/20 07/14/20 23:59 23:59 23:59 23:59 Intake Total 1645 2310 535 Output Total 5450 3100 400 Balance -3805 -790 135 Meds/Results Medications: Active Medications Generic Name Dose Route Start Last Admin Trade Name Heathq PRN Reason Stop Dose Admin Acetaminophen 650 mg 07/11/20 16:41 Tylenol Tablet PO Q4H PRN Mild Pain (1-3) or Fever Hydrocodone Bitart/Acetaminophen 1 tab 07/11/20 16:41 [place] 5-325 Mg PO Q4H PRN Pain Rated 4-6 Albuterol 2 puff 07/14/20 10:32 Proventil Hfa INHALATION QIDRT PRN Shortness Of Breath Or Wheezing Amlodipine Besylate 10 mg 07/12/20 09:00 07/14/20 08:40 Norvasc PO 10 mg DAILY EMIR Administration Aspirin 81 mg 07/12/20 09:00 07/14/20 08:41 Aspirin Ec PO 81 mg DAILY EMIR Administration Atorvastatin Calcium 40 mg 07/12/20 09:00 07/14/20 08:41 Lipitor PO 40 mg DAILY EMIR Administration Budesonide/Formoterol Fumarate 2 puff 07/12/20 00:01 07/14/20 09:47 Symbicort 160-4.5 Mcg (*Sp) Inhaler INHALATION 2 puff
[2020-07-14] MEDS: PEG (High)/E-LYTE SOLN 4,000 ML BTL 4000 ML PO (14:20)
[2020-07-14 16:25] LABS: Glucose Point of Care 98 (65-105)
--- NOTE | 2020-07-14 17:54 | PM.IMPN ---
Progress Note: A&P Assessment and Plan (1) Acute and chronic respiratory failure: Code(s): J96.20 - Acute and chronic respiratory failure, unspecified whether with hypoxia or hypercapnia Status: Acute Assessment and Plan: ABG on admisison showing nml pH but elevated PCO2 at 49 and pO2 at 64 on 4L. She normally wear 2L O2 NC at home. Stable but still on 5L O2. Wean O2 as tolerated. Apnea link when O2 requirement better. (2) CHF exacerbation: Code(s): I50.9 - Heart failure, unspecified Status: Chronic Assessment and Plan: CXR showing mild pulmonary edema and CMG. BNP 1800. Echo showing no change since August 2019 with EF 70% and grade I diastolic dysfunction. Excellent UOP with the Lasix. Renal function stable. Will continue to wean O2 as tolerated. Continue Lasix (3) Hypersomnia: Code(s): G47.10 - Hypersomnia, unspecified Status: Acute Assessment and Plan: It is highly suggestive that the patient has obstructive sleep apnea. She has not been able to obtain a sleep study due to the COVID. She follows with Dr Boyd. (4) Microcytic anemia: Code(s): D50.9 - Iron deficiency anemia, unspecified Status: Acute Assessment and Plan: Hgb 10 range last year and now into the 7 range but stable. Could have contributed to her CHF exacerbation. Iron studies are compatible with iron deficiency anemia. B12 normal. Currently on IV Iron. GI consulted for EGD and colonoscopy. (5) Hypertension: Qualifiers: Hypertension type: essential hypertension Qualified Code(s): I10 - Essential (primary) hypertension Code(s): I10 - Essential (primary) hypertension Status: Acute Assessment and Plan: Patient's blood pressure was reviewed on 07/14 Blood pressure remains well controlled and even soft at times. Will continue Norvasc; Her hydrochlorothiazide is on hold at this time. She is now on Lasix. Consider ACEI given her DM Continue to monitor (6) Obesity: Qualifiers: Body mass index: BMI 45.0-49.9 Obesity classification: adult class 3 (BMI >= 40) Obesity type: due to excess calories Serious obesity comorbidity presence: with serious comorbidity Qualified Code(s): E66.01 - Morbid (severe) obesity due to excess calories; Z68.42 - Body mass index (BMI) 45.0-49.9, adult Code(s): E66.9 - Obesity, unspecified Status: Acute Assessment and Plan: BMI 54. Encourage healthy lifestyle choices. (7) COPD (chronic obstructive pulmonary disease): Qualifiers: COPD type: unspecified COPD Qualified Code(s): J44.9 - Chronic obstructive pulmonary disease, unspecified Code(s): J44.9 - Chronic obstructive pulmonary disease, unspecified Status: Chronic Assessment and Plan: No wheezing appreciated. Continue with her Spiriva. (8) Lung nodule: Code(s): R91.1 - Solitary pulmonary nodule Status: Chronic Assessment and Plan: The patient was supposed to have a follow-up CT for her lung nodule but was unable to have it completed since the COVID outbreak. Repeat CTA chest revealed nodules unchanged but with mediastinal and bilateral hilar lymphadenopathy. No PE but with moderate emphysema. Will need PET scan as outpatient. (9) DM2 (diabetes mellitus, type 2): Code(s): E11.9 - Type 2 diabetes mellitus without complications Status: Chronic Assessment and Plan: A1c 5.7. The patient's blood glucose was reviewed on 07/14 Glucose remains well controlled. Continue AccuCheks covering with sliding scale. Hypoglycemia protocol available as needed. (10) Hyperlipidemia: Qualifiers: Hyperlipidemia type: unspecified Qualified Code(s): E78.5 - Hyperlipidemia, unspecified Code(s): E78.5 - Hyperlipidemia, unspecified Status: Chronic Assessment and Plan: Stable. Continue Zetia.
[2020-07-14] MEDS: ACETAMINOPHEN 325 MG TABLET 650 MG PO (21:34)
[2020-07-14 21:55] LABS: Glucose Point of Care 85 (65-105)
[2020-07-15] VITALS (15 sets, daily range): BP systolic 86–137; BP diastolic 49–80; PULSE 60–75; RESP 17–24; TEMP 36.4–36.6; O2SAT 92–98
[2020-07-15 01:56] LABS: Glucose Point of Care 103 (65-105)
[2020-07-15 05:18] LABS: Basophils Percent Auto 0.3 % (0.2-1.2); Eosinophils Absolute Auto 0.2 K/mm3 (0-0.3); Hemoglobin 7.6 g/dL (12.0-15.0); Immature Granulocyte Absolute 0.04 K/mm3 (0.00-0.031); Immature Granulocyte Percent A 0.4 % (0-0.5); Lymphocytes Absolute Auto 1.49 K/mm3 (0.9-3.2); Lymphocytes Percent Auto 16.3 % (18.3-44.2); Mean Corpuscular HGB Conc 28.1 g/dl (32-36); Mean Corpuscular Hemoglobin 19.6 pg (26-34); Mean Corpuscular Volume 69.8 fl (80-100); Monocytes Absolute Auto 0.6 K/mm3 (0.1-0.6); Neutrophils Absolute Auto 6.8 K/mm3 (1.3-6.7); Nucleated Red Blood Cells Perc 0.2 % (0.0-0.2); Platelet Count Result 240 k/mm3 (150-375); Red Blood Count 3.87 M/mm3 (4.2-5.4); Red Cell Distribution Width 19.6 % (11.5-14.5); White Blood Count 9.1 K/mm3 (4.5-10.0)
[2020-07-15 05:45] LABS: Alanine Aminotransferase 12 U/L (4-35); Albumin Level 3.9 g/dL (3.5-5.1); Alkaline Phosphatase 124 U/L (38-126); Anion Gap 5 mmol/L (8-16); Aspartate Amino Transferase 39 U/L (14-36); Bilirubin,Total 0.5 mg/dL (0.2-1.3); Blood Urea Nitrogen 15 mg/dL (7-17); Calcium 8.9 mg/dL (8.4-10.2); Carbon Dioxide 35 mmol/L (22-30); Chloride 98 mmol/L (98-107); Estimated CRCL calculation 81 ml/min; Estimated Glomerular Filt Rate > 60; Glucose 106 mg/dL (65-105); Magnesium 2.2 mg/dL (1.6-2.3); Phosphorus 3.3 mg/dL (2.5-4.5); Potassium 4.3 mmol/L (3.4-5.0); Sodium 138 mmol/L (137-145)
[2020-07-15 05:57] LABS: Anisocytosis 1+ (NORMAL); Hypochromasia 2+ (NORMAL); Platelet Estimate Adequate (Adequate)
[2020-07-15] MEDS: amLODIPine BESYLATE 5 MG TABLET 10 MG PO (07:55)
[2020-07-15] MEDS: FUROSEMIDE INJ 40 MG/4 ML VIAL IV PUSH ×2 (07:57→18:02)
--- NOTE | 2020-07-15 08:01 | PC.NURSE ---
To GI Lab per augustus, IV saline locked. Report given to
[2020-07-15 08:08] LABS: Glucose Point of Care 90 (65-105)
[2020-07-15] MEDS: LACTATED RINGERS 1,000 ML 150 ML IV CONT (08:27)
--- NOTE | 2020-07-15 08:40 | WPDANESEPPF ---
Anes - Initial Pre Proc Eval Procedure: Operation Date: 07/15/20 09:30 Proposed Procedures p Esophagogastroduodenoscopy & Colonoscopy - Abdoulaye Wilkerson MD Date/Time: 07/15/20 08:40 Surgeon: Dinesh Reina MD Pre Op Diagnosis: chf exacerbation,increased o2 requirement Patient Data Age: 60 Gender: F Height: 5 ft 4 in Weight: 144 kg Last Vital Signs Temp 97.7 F 07/15/20 08:24 Pulse 71 07/15/20 08:24 Resp 17 07/15/20 08:24 BP 120/65 07/15/20 08:24 Pulse Ox 98 07/15/20 08:24 Allergies Allergy/AdvReac Type Severity Reaction Status Date / Time Penicillins Allergy Hives Verified 01/08/20 10:58 Sulfa (Sulfonamide Allergy unknown Verified 01/08/20 10:58 Antibiotics) Home Medications Medication Instructions Recorded Confirmed Type amlodipine 10 mg PO DAILY 09/08/19 07/11/20 History aspirin [Aspir-81] 81 mg PO DAILY 09/08/19 07/11/20 History atorvastatin 40 mg PO DAILY 09/08/19 07/11/20 History ezetimibe 10 mg PO DAILY 09/08/19 07/11/20 History glimepiride 2 mg PO DAILY 09/08/19 07/11/20 History metformin 500 mg PO DAILY 09/08/19 07/11/20 History albuterol sulfate 2 puff INHALATION QID #6.7 gm 09/12/19 07/11/20 Rx budesonide-formoterol [Symbicort] 2 puff INHALATION Q12HRT #1 inh 09/12/19 07/11/20 Rx hydrochlorothiazide 12.5 mg capsule 12.5 mg PO DAILY 10/08/19 07/11/20 History meloxicam 7.5 mg PO DAILY 07/11/20 07/11/20 History polysaccharide iron complex 150 mg PO DAILY 07/11/20 07/11/20 History [Poly-Iron] Laboratory Tests 07/14/20 07/14/20 07/14/20 11:20 16:21 21:19 WBC RBC Hgb Hct MCV MCH MCHC RDW Plt Count MPV Immature Gran % (Auto) Neut % (Auto) Lymph % (Auto) [place] % (Auto) Eos % (Auto) Baso % (Auto) Lymph # (Auto) [place] # (Auto) Eos # (Auto) Baso # (Auto) Abs Immat Gran (auto) Absolute Neuts (auto) Absolute Nucleated RBC Nucleated RBC % Platelet Estimate Hypochromasia Anisocytosis Sodium Potassium Chloride Carbon Dioxide Anion Gap BUN Creatinine Estim Creat Clear Calc Estimated GFR Glucose POC Capillary Glucose 96 mg/dl mg/dl 98 mg/dl mg/dl 85 mg/dl mg/dl (65-105) (65-105) (65-105) Calcium Phosphorus Magnesium Total Bilirubin AST ALT Alkaline Phosphatase Total Protein Albumin 07/15/20 07/15/20 07/15/20 01:54 04:55 04:55 WBC 9.1 K/mm3 K/mm3 (4.5-10.0) RBC 3.87 M/mm3 L M/mm3 (4.2-5.4) Hgb 7.6 g/dL L g/dL (12.0-15.0) Hct 27.0 % L % (37.0-47.0) MCV 69.8 fl L fl (80-100) MCH 19.6 pg L pg (26-34) MCHC 28.1 g/dl L g/dl (32-36) RDW 19.6 % H % (11.5-14.5) Plt Count 240 k/mm3 k/mm3 (150-375) MPV 10.0 fl fl (7.4-10.4) Immature Gran % (Auto) 0.4 % % (0-0.5) Neut % (Auto) 74.0 % H % (45.5-73.1) Lymph % (Auto) 16.3 % L % (18.3-44.2) Nobles % (Auto) 7.0 % % (2.6-8.5) Eos % (Auto) 2.0 % % (0-4.4) Baso % (Auto) 0.3 % % (0.2-1.2) Lymph # (Auto) 1.49 K/mm3 K/mm3 (0.9-3.2) [place]les # (Auto) 0.6 K/mm3 K/mm3 (0.1-0.6) Eos # (Auto) 0.2 K/mm3 K/mm3 (0-0.3) Baso # (Auto) 0.0 K/mm3 K/mm3 (0.0-0.1) Abs Immat Gran (auto) 0.04 K/mm3 H K/mm3 (0.00-0.031) Absolute Neuts (auto) 6.8 K/mm3 H K/mm3 (1.3-6.7) Absolute Nucleated RBC 0.0 K/mm3 K/mm3 (0.0-0.012)
[2020-07-15 09:57] LABS: Glucose Point of Care 81 (65-105)
--- NOTE | 2020-07-15 10:00 | PC.NURSE ---
Returned from GI Lab. Report received from
[2020-07-15] MEDS: ATORVASTATIN 40 MG TABLET PO (10:05)
[2020-07-15] MEDS: EZETIMIBE 10 MG TABLET PO (10:05)
[2020-07-15] MEDS: PANTOPRAZOLE 40 MG TABLET PO (10:05)
[2020-07-15 11:32] LABS: Glucose Point of Care 110 (65-105)
--- NOTE | 2020-07-15 16:54 | PM.IMPN ---
Progress Note: A&P Assessment and Plan (1) Acute and chronic respiratory failure: Code(s): J96.20 - Acute and chronic respiratory failure, unspecified whether with hypoxia or hypercapnia Status: Acute Assessment and Plan: ABG on admission showing nml pH but elevated PCO2 at 49 and pO2 at 64 on 4L. She normally wear 2L O2 NC at home. Stable but still on 4L O2. Wean O2 as tolerated. Apnea link when O2 requirement better. CXR reviewed. Advance Lasix. (2) CHF exacerbation: Code(s): I50.9 - Heart failure, unspecified Status: Chronic Assessment and Plan: CXR on admission showing mild pulmonary edema and CMG. BNP 1800. Echo 07/13 showing no change since August 2019 with EF 70% and grade I diastolic dysfunction. Excellent UOP with the Lasix with negative fluid balance. Renal function remains stable. Repeat CXR still shownig pulmonary edema. Will continue to wean O2 as tolerated. Advance IV Lasix. (3) Heart block atrioventricular: Code(s): I44.30 - Unspecified atrioventricular block Status: Acute Assessment and Plan: Patient with infrequent episodes of 2nd degree AVB possibly Mobitz II. Suspect related to untreated sleep apnea. Echo noted. Mag 2.2 and potassium 4.3. Cardiology consult. Continue tele. (4) Hypersomnia: Code(s): G47.10 - Hypersomnia, unspecified Status: Acute Assessment and Plan: It is highly suggestive that the patient has obstructive sleep apnea. She has not been able to obtain a sleep study due to the COVID. She follows with Dr Boyd. (5) Microcytic anemia: Code(s): D50.9 - Iron deficiency anemia, unspecified Status: Acute Assessment and Plan: Hgb 10 range last year and now into the 7 range but stable. Could have contributed to her CHF exacerbation. Iron studies are compatible with iron deficiency anemia. B12 normal. Completed IV Iron. EGD showing acute gastric ulcer and esophageal ring. Colonoscopy showing internal hemorrhoids. Anemia could be related to gastric ulcer. Will start oral iron. (6) Gastric ulcer: Code(s): K25.9 - Gastric ulcer, unspecified as acute or chronic, without hemorrhage or perforation Status: Acute Assessment and Plan: As above. (7) Hypertension: Qualifiers: Hypertension type: essential hypertension Qualified Code(s): I10 - Essential (primary) hypertension Code(s): I10 - Essential (primary) hypertension Status: Acute Assessment and Plan: Patient's blood pressure was reviewed on 07/15 Blood pressure remains well controlled. Blood pressure low earlier today possibly from anesthesia Will stop Norvasc; Her hydrochlorothiazide is on hold at this time. Advance Lasix. Add Lisinopril. Continue to monitor. (8) Obesity: Qualifiers: Body mass index: BMI 45.0-49.9 Obesity classification: adult class 3 (BMI >= 40) Obesity type: due to excess calories Serious obesity comorbidity presence: with serious comorbidity Qualified Code(s): E66.01 - Morbid (severe) obesity due to excess calories; Z68.42 - Body mass index (BMI) 45.0-49.9, adult Code(s): E66.9 - Obesity, unspecified Status: Acute Assessment and Plan: BMI 54. Encourage healthy lifestyle choices. (9) COPD (chronic obstructive pulmonary disease): Qualifiers: COPD type: unspecified COPD Qualified Code(s): J44.9 - Chronic obstructive pulmonary disease, unspecified Code(s): J44.9 - Chronic obstructive pulmonary disease, unspecified Status: Chronic Assessment and Plan: No wheezing appreciated. Continue with her Spiriva. (10) Lung nodule: Code(s): R91.1 - Solitary pulmonary nodule Status: Chronic Assessment and Plan: The patient was supposed to have a follow-up CT for her lung nodule but was unable to have it completed since the COVID outbreak. Repeat
[2020-07-15 17:04] LABS: Glucose Point of Care 106 (65-105)
[2020-07-15] MEDS: FERROUS SULFATE 324 MG TABLET PO (18:02)
--- NOTE | 2020-07-15 19:04 | PM.CNCAR ---
Assessment and Plan Assessment and plan (1) Heart block atrioventricular: Code(s): I44.30 - Unspecified atrioventricular block Status: Acute Assessment and Plan: Mild only rare episodes; no need for pacemaker at this time. Could be due to hypoxia or undiagnosed GUANACO. Received blood transfusions, on oxygen. Upon discharge, will place 30 day event monitor from my office. Will need outpatient sleep study as lab is back open last week. (2) COPD (chronic obstructive pulmonary disease): Qualifiers: COPD type: unspecified COPD Qualified Code(s): J44.9 - Chronic obstructive pulmonary disease, unspecified Code(s): J44.9 - Chronic obstructive pulmonary disease, unspecified Status: Chronic (3) CHF exacerbation: Code(s): I50.9 - Heart failure, unspecified Status: Chronic Assessment and Plan: Acute on chronic diastolic heart failure. She appears to be euvolemic after diuresis. She will need to be maintained on Lasix 40 mg PO daily upon discharge. (4) HTN (hypertension), malignant: Code(s): I10 - Essential (primary) hypertension Status: Chronic (5) Hypertension: Qualifiers: Hypertension type: essential hypertension Qualified Code(s): I10 - Essential (primary) hypertension Code(s): I10 - Essential (primary) hypertension Status: Acute Assessment and Plan: Fluctuates but fairly well controlled. History of Present Illness History of Present Illness Consult date/time: 07/15/20 19:04 Reason for consult: Second degree AV block. 60 yr old woman presented to hospital on 07/11/20 for sob for 3 days. She has a history of COPD on home oxygen at 2 l/m, quit smoking in Aug 2019, hypertension, dyslipidemia, DM. She reports that she was retaining fluid all over her body including her legs and was sob. She can walk minimal distance due to [place]. States that since given Lasix she has not had any more sob and edema resolved. On telemetry, it was noted that she had a few episodes of dropped beats due to second degree AV block in last 3-4 days. Denies dizziness, passing out. She had endoscopies today and received blood transfusions for Hb 7.6.CXR on admission showed mild CHF. NTproBNP was mildly elevated at 1,810. EKG shows sinus rhythm with frequent PAC's, borderline ST changes in high lateral leads. Echo shows EF>70%, mild LAE, mild LVH, grade I diastolic dysfunction. She admits to waking up and daytime drowsiness. Reason For Visit: chf exacerbation,increased o2 requirement Review of Systems Review of Systems: All systems reviewed & are unremarkable except as noted in HPI and below Constitutional: Constitutional: Reports as per HPI, Denies chills, Reports difficulty sleeping and Reports fatigue Cardiovascular: Cardiovascular: Reports as per HPI, Denies chest pain, Reports leg edema and Denies lightheadedness Respiratory: Respiratory: Reports as per HPI, Reports dyspnea and Reports dyspnea on exertion Gastrointestinal: Gastrointestinal: Reports as per HPI and Denies abdominal pain Genitourinary: Genitourinary: Reports as per HPI and Denies dysuria Musculoskeletal: Musculoskeletal: Reports as per HPI Neurologic: Reports as per HPI and Denies confusion [facility] Past Medical History Medical History Adrenal mass Anemia COPD (chronic obstructive pulmonary disease) Diabetes mellitus DM2 (diabetes mellitus, type 2) Hyperlipidemia Hypertension Lung nodule 11 mm Tobacco abuse Surgical History Surgical History (Updated 07/11/20 @ 23:03 by Sarah London NP) H/O section x3 History of appendectomy Hx of cholecystectomy Family History Family History Grandparent Congestive heart failure Mother HTN (hypertension) with goal to be determined Hyperlipidemia Cancer Sibling Age: 53 HTN (hypertension) with goal to be d
[2020-07-15] MEDS: ALBUTEROL SULFATE (*SP) AEROSOL 1 PUFF 2 PUFF INHALATION (19:28)
[2020-07-15 22:47] LABS: Glucose Point of Care 117 (65-105)
[2020-07-16] VITALS (14 sets, daily range): BP systolic 128–135; BP diastolic 59–61; PULSE 62–91; RESP 19–22; TEMP 36.1–36.7; O2SAT 90–100
[2020-07-16 05:45] LABS: Hematocrit 26.1 % (37.0-47.0); Hemoglobin 7.4 g/dL (12.0-15.0); Immature Platelet Fraction Pct 4.2 % (0.9-11.2); Mean Corpuscular HGB Conc 28.4 g/dl (32-36); Mean Corpuscular Hemoglobin 20.3 pg (26-34); Mean Corpuscular Volume 71.5 fl (80-100); Mean Platelet Volume 10.7 fl (7.4-10.4); Platelet Count Result 237 k/mm3 (150-375); Red Blood Count 3.65 M/mm3 (4.2-5.4); Red Cell Distribution Width 20.1 % (11.5-14.5); White Blood Count 8.8 K/mm3 (4.5-10.0)
[2020-07-16 05:57] LABS: Anion Gap 4 mmol/L (8-16); Blood Urea Nitrogen 13 mg/dL (7-17); Calcium 9.1 mg/dL (8.4-10.2); Carbon Dioxide 36 mmol/L (22-30); Chloride 98 mmol/L (98-107); Estimated CRCL calculation 74 ml/min; Estimated Glomerular Filt Rate > 60; Glucose 96 mg/dL (65-105); Potassium 3.7 mmol/L (3.4-5.0); Sodium 138 mmol/L (137-145)
[2020-07-16] MEDS: lisinopriL 10 MG TABLET PO (08:33)
[2020-07-16] MEDS: FERROUS SULFATE 324 MG TABLET PO ×2 (08:33→17:19)
[2020-07-16] MEDS: EZETIMIBE 10 MG TABLET PO (08:34)
[2020-07-16] MEDS: ATORVASTATIN 40 MG TABLET PO (08:34)
[2020-07-16] MEDS: PANTOPRAZOLE 40 MG TABLET PO (08:34)
[2020-07-16] MEDS: ASPIRIN 81 MG ENTERIC TABLET PO (08:34)
[2020-07-16] MEDS: FUROSEMIDE INJ 40 MG/4 ML VIAL IV PUSH ×2 (08:34→18:12)
--- NOTE | 2020-07-16 09:49 | PM.PNCARD ---
Progress Note: A&P Assessment and Plan (1) Heart block atrioventricular: Code(s): I44.30 - Unspecified atrioventricular block Status: Acute Assessment and Plan: Mild only rare episodes; no need for pacemaker at this time. Could be due to hypoxia or undiagnosed GUANACO. Received blood transfusions, on oxygen. Upon discharge, will place 30 day event monitor from my office. Will need outpatient sleep study as lab is back open last week. (2) CHF exacerbation: Code(s): I50.9 - Heart failure, unspecified Status: Chronic Assessment and Plan: Acute on chronic diastolic heart failure. She appears to be euvolemic after diuresis. Will change to Lasix 40 mg PO daily. (3) Hypersomnia: Code(s): G47.10 - Hypersomnia, unspecified Status: Acute (4) Hypertension: Qualifiers: Hypertension type: essential hypertension Qualified Code(s): I10 - Essential (primary) hypertension Code(s): I10 - Essential (primary) hypertension Status: Acute Assessment and Plan: Stable. (5) COPD (chronic obstructive pulmonary disease): Qualifiers: COPD type: unspecified COPD Qualified Code(s): J44.9 - Chronic obstructive pulmonary disease, unspecified Code(s): J44.9 - Chronic obstructive pulmonary disease, unspecified Status: Chronic (6) Hyperlipidemia: Qualifiers: Hyperlipidemia type: unspecified Qualified Code(s): E78.5 - Hyperlipidemia, unspecified Code(s): E78.5 - Hyperlipidemia, unspecified Status: Chronic (7) Anemia: Qualifiers: Anemia type: unspecified type Qualified Code(s): D64.9 - Anemia, unspecified Code(s): D64.9 - Anemia, unspecified Status: Chronic Assessment and Plan: Being followed by hospitalist and GI. Subjective Date/time seen: 07/16/20 09:49 Denies chest pain, sob, dizziness. Exam Const: General: comfortable and no acute distress Neck: Neck: no JVD Carotids: no bruits Resp: Auscultation: clear to auscultation bilaterally, no crackles, no rales, no rhonchi and no wheezes Cardio: Rate: regular rate Rhythm: regular rhythm Heart sounds: no murmurs GI: GI Palp: Yes Soft to palpation and No Tenderness to palpation present (GI) Neuro: Speech: normal speech Extrem: Right lower extremity: no edema Left lower extremity: no edema Objective Data Vital Signs Vital Signs: Vital Signs - 24 hr 07/15/20 12:00 07/15/20 14:00 07/15/20 16:00 Temperature 97.9 F Pulse Rate 68 66 67 Respiratory Rate 20 Blood Pressure 137/80 Pulse Oximetry 93 07/15/20 19:31 07/15/20 20:00 07/16/20 00:00 Temperature 97.6 F Pulse Rate 69 76 Respiratory Rate 22 H Blood Pressure 116/49 L Pulse Oximetry 92 94 07/16/20 04:00 07/16/20 08:30 Temperature 97.3 F L Pulse Rate 75 Respiratory Rate 20 Blood Pressure 132/61 Pulse Oximetry 92 92 Intake/Output Intake/Output: Intake & Output 07/13/20 07/14/20 07/15/20 07/16/20 23:59 23:59 23:59 23:59 Intake Total 2310 1995 1140 1240 Output Total 3100 2900 2100 550 Balance -790 -445 -580 690 Meds/Results Medications: Active Medications Generic Name Dose Route Start Last Admin Trade Name Freq PRN Reason Stop Dose Admin Acetaminophen 650 mg 07/11/20 16:41 07/14/20 21:34 Tylenol Tablet PO 650 mg Q4H PRN Administration Mild Pain (1-3) or Fever Hydrocodone Bitart/Acetaminophen 1 tab 07/11/20 16:41 [place] 5-325 Mg PO Q4H PRN Pain Rated 4-6 Albuterol 2 puff 07/14/20 10:32 07/15/20 19:28 Proventil Hfa INHALATION 2 puff QIDRT PRN Administration Shortness Of Breath Or Wheezing Aspirin 81 mg 07/12/20 09:00 07/16/20 08:34 Aspirin Ec PO 81 mg DAILY EMIR Administration Atorvastatin Calcium 40 mg 07/12/20 09:00 07/16/20 08:34 Lipitor PO 40 mg DAILY EMIR Administration Budesonide/Formoterol Fumarate 2 puff 07/12/20 00:01 07/16/20 08:32
[2020-07-16 10:15] LABS: Glucose Point of Care 81 (65-105)
--- NOTE | 2020-07-16 11:02 | WPDANESPN ---
Anes - Prog Note Post-Op Date/Time: 07/16/20 11:02 Cardiovascular status: normal Respiratory status: normal Airway patency: baseline Mental status: baseline Post-Op hydration status: normal Vital Signs: Last Vital Signs Temp 36.3 C L 07/16/20 04:00 Pulse 75 07/16/20 04:00 Resp 20 07/16/20 04:00 BP 132/61 07/16/20 04:00 Pulse Ox 92 07/16/20 08:30 Pain Score (VAS): 0 I/O: Intake & Output 07/15/20 07/16/20 07/16/20 23:59 07:59 15:59 Intake Total 240 1000 840 Output Total 900 550 500 Balance -660 450 340 Laboratory Tests 07/16/20 05:10 07/16/20 05:10 07/15/20 07/15/20 07/15/20 11:29 16:35 20:14 WBC RBC Hgb Hct MCV MCH MCHC RDW Plt Count MPV % Immature Plt Fraction Sodium Potassium Chloride Carbon Dioxide Anion Gap BUN Creatinine Estim Creat Clear Calc Estimated GFR Glucose POC Capillary Glucose 110 106 117 H Calcium Magnesium 07/16/20 07/16/20 07/16/20 05:10 05:10 07:57 WBC 8.8 RBC 3.65 L Hgb 7.4 L Hct 26.1 L MCV 71.5 L MCH 20.3 L MCHC 28.4 L RDW 20.1 H Plt Count 237 MPV 10.7 H % Immature Plt Fraction 4.2 Sodium 138 Potassium 3.7 Chloride 98 Carbon Dioxide 36 H Anion Gap 4 L BUN 13 Creatinine 1.00 Estim Creat Clear Calc 74 Estimated GFR > 60 Glucose 96 POC Capillary Glucose 81 Calcium 9.1 Magnesium 2.0 Post-procedural complaints: none Patient Feedback: Patient satisfied with anesthetic care.
--- NOTE | 2020-07-16 11:12 | WPDGIPROGNO ---
Progress Note: A&P Additional Plan Patient more comfortable this morning. States she is breathing easily. Tolerating diet. She denies abdominal pain. She has had no obvious bleeding. Physical exam reveals lungs to be essentially clear. Heart without murmur. Abdomen obese bowel sounds are present soft nontender with no organomegaly. Labs reveal hemoglobin 7.4, hematocrit 26, MCV 71. Impression 1. Iron deficiency anemia. Iron replacement in progress. 2. Gastric ulcer identified endoscopy. this is likely etiology for her iron deficiency anemia. Plan to continue proton pump inhibitor therapy after discharge. Avoid nonsteroidal anti-inflammatory agents. Follow-up EGD in 2 months advised. 3. Congestive heart failure. [place] to be high output failure secondary to low hemoglobin at admission. Clinically doing well. I would plan for GI follow-up endoscopy through Dr Wilkerson's office 2 months after discharge. Okay with me for discharge when others agree. Subjective Date/time seen: 07/16/20 11:12 Objective Data Vital Signs Vital Signs: Vital Signs - 24 hr 07/15/20 12:00 07/15/20 14:00 07/15/20 16:00 Temperature 97.9 F Pulse Rate 68 66 67 Respiratory Rate 20 Blood Pressure 137/80 Pulse Oximetry 93 07/15/20 19:31 07/15/20 20:00 07/16/20 00:00 Temperature 97.6 F Pulse Rate 69 76 Respiratory Rate 22 H Blood Pressure 116/49 L Pulse Oximetry 92 94 07/16/20 04:00 07/16/20 08:30 Temperature 97.3 F L Pulse Rate 75 Respiratory Rate 20 Blood Pressure 132/61 Pulse Oximetry 92 92 Intake/Output Intake/Output: Intake & Output 07/13/20 07/14/20 07/15/20 07/16/20 23:59 23:59 23:59 23:59 Intake Total 2310 1995 1140 1840 Output Total 3100 2900 2100 1050 Balance -790 -905 -960 790 Meds/Results Medications: Active Medications Generic Name Dose Route Start Last Admin Trade Name Freq PRN Reason Stop Dose Admin Acetaminophen 650 mg 07/11/20 16:41 07/14/20 21:34 Tylenol Tablet PO 650 mg Q4H PRN Administration Mild Pain (1-3) or Fever Hydrocodone Bitart/Acetaminophen 1 tab 07/11/20 16:41 [place] 5-325 Mg PO Q4H PRN Pain Rated 4-6 Albuterol 2 puff 07/14/20 10:32 07/15/20 19:28 Proventil Hfa INHALATION 2 puff QIDRT PRN Administration Shortness Of Breath Or Wheezing Aspirin 81 mg 07/12/20 09:00 07/16/20 08:34 Aspirin Ec PO 81 mg DAILY EMIR Administration Atorvastatin Calcium 40 mg 07/12/20 09:00 07/16/20 08:34 Lipitor PO 40 mg DAILY EMIR Administration Budesonide/Formoterol Fumarate 2 puff 07/12/20 00:01 07/16/20 08:32 Symbicort 160-4.5 Mcg (*Sp) Inhaler INHALATION 2 puff Q12HRT EMIR Administration Dextrose 12.5 gm 07/11/20 22:54 Dextrose 50% Syringe IV PUSH PRN PRN Hypoglycemia Protocol Ezetimibe 10 mg 07/12/20 09:00 07/16/20 08:34 Zetia PO 10 mg DAILY EMIR Administration Ferrous Sulfate 324 mg 07/15/20 17:20 07/16/20 08:33 Ferrous Sulfate PO 324 mg BIDWM EMIR Administration Furosemide 40 mg 07/17/20 09:00 Lasix Tablet PO DAILY EMIR Glucagon 1 mg 07/11/20 22:54 Glucagon For Inj IM PRN PRN Hypoglycemia Protocol Glucose 15 gm 07/11/20 22:54 Glutose 15 PO PRN PRN Hypoglycemia Protocol Dextrose 1,000 mls @ 100 mls/hr 07/11/20 22:54 Dextrose 5% 1,000 Ml IVPB PRN PRN Hypoglycemia Protocol Insulin Aspart 2 - 5 units 07/12/20 08:00 07/16/20 08:33 Novolog SUB-Q Not Given [facility] Protocol Lisinopril 10 mg 07/16/20 09:00 07/16/20 08:33 Prinivil PO 10 mg DAILY EMIR Administration Ondansetron HCl 4 mg 07/11/20 16:41 Zofran Inj IV PUSH Q4H PRN Nausea Pantoprazole Sodium 40 mg 07/13/20 09:00 07/16/20 08:34 Protonix PO 40 mg QAM EMIR Administration Radiology Results: ITS Impressions Chest CTA 07/12/20 09:36 IMPRESSION: 1.
[2020-07-16 11:27] LABS: Glucose Point of Care 96 (65-105)
[2020-07-16 16:59] LABS: Glucose Point of Care 102 (65-105)
--- NOTE | 2020-07-16 17:13 | PM.IMPN ---
Progress Note: A&P Assessment and Plan (1) Acute and chronic respiratory failure: Code(s): J96.20 - Acute and chronic respiratory failure, unspecified whether with hypoxia or hypercapnia Status: Acute Assessment and Plan: ABG on admission showing nml pH but elevated PCO2 at 49 and pO2 at 64 on 4L. She normally wear 2-3L O2 NC at home. Stable but still on 5L O2. Patient desats when walking to the bathroom. CTA negative for PE but shows moderate emphysema, pulmonary arterial HTN and adenopathy. No mention of pulm HTN on Echo report. Wean O2 as tolerated. (2) CHF exacerbation: Code(s): I50.9 - Heart failure, unspecified Status: Chronic Assessment and Plan: CXR on admission showing mild pulmonary edema and CMG. BNP 1800. Echo 07/13 showing no change since August 2019 with EF 70% and grade I diastolic dysfunction. Excellent UOP with the Lasix with negative fluid balance. Renal function remains stable. Repeat CXR yesterday still showing pulmonary edema. Will continue to wean O2 as tolerated. Lasix changed to oral - will give Lasix IV tonight. (3) Heart block atrioventricular: Code(s): I44.30 - Unspecified atrioventricular block Status: Acute Assessment and Plan: Patient with infrequent episodes of 2nd degree AVB possibly [place] I vs II. Review tele today more consistent with [place] I. Suspect related to untreated sleep apnea. Echo noted. Mag 2 and potassium 3.7. Appreciate Cardiology input. Continue tele. (4) Hypersomnia: Code(s): G47.10 - Hypersomnia, unspecified Status: Acute Assessment and Plan: It is highly suggestive that the patient has obstructive sleep apnea. She has not been able to obtain a sleep study due to the COVID. She follows with Dr Boyd. Apnea link tonight if able to decrease O2 back down to 3L (5) Microcytic anemia: Code(s): D50.9 - Iron deficiency anemia, unspecified Status: Acute Assessment and Plan: Hgb 10 range last year and now into the 7 range but stable. Could have contributed to her CHF exacerbation. Iron studies are compatible with iron deficiency anemia. B12 normal. Completed IV Iron. EGD showing acute gastric ulcer and esophageal ring. Colonoscopy showing internal hemorrhoids. Anemia could be related to gastric ulcer. Will continue oral iron. (6) Gastric ulcer: Code(s): K25.9 - Gastric ulcer, unspecified as acute or chronic, without hemorrhage or perforation Status: Acute Assessment and Plan: As above. (7) Hypertension: Qualifiers: Hypertension type: essential hypertension Qualified Code(s): I10 - Essential (primary) hypertension Code(s): I10 - Essential (primary) hypertension Status: Acute Assessment and Plan: Patient's blood pressure was reviewed on 07/16 Blood pressure remains well controlled. Continue Lisinopril Continue to monitor. (8) Obesity: Qualifiers: Body mass index: BMI 45.0-49.9 Obesity classification: adult class 3 (BMI >= 40) Obesity type: due to excess calories Serious obesity comorbidity presence: with serious comorbidity Qualified Code(s): E66.01 - Morbid (severe) obesity due to excess calories; Z68.42 - Body mass index (BMI) 45.0-49.9, adult Code(s): E66.9 - Obesity, unspecified Status: Acute Assessment and Plan: BMI 54. Encourage healthy lifestyle choices. (9) COPD (chronic obstructive pulmonary disease): Qualifiers: COPD type: unspecified COPD Qualified Code(s): J44.9 - Chronic obstructive pulmonary disease, unspecified Code(s): J44.9 - Chronic obstructive pulmonary disease, unspecified Status: Chronic Assessment and Plan: No wheezing appreciated. Continue with her Spiriva. (10) Lung nodule: Code(s): R91.1 - Solitary pulmonary nodule Status: Chronic Assessment and Plan: The pat
--- NOTE | 2020-07-16 19:22 | PCRCNOTE ---
Addendum entered by Shannon Thakkar, PHOTOGRAPHIC EQUIPMENT INSPECTOR 07/16/20 21:39: PT PLACED ON BIPAP DUE TO LOW SPO2 OF 69% ON 6LPM WHILE AT REST WITH VERIFIED ACCURACY. APNEA LINK NOT COMPLETED AT THIS TIME. DR MERRILL AWARE Original Note: PT HAD JUST RETURNED FROM AMBULATING TO BATHROOM WHEN RN CALLED FOR LOW SPO2 77-82%. UPON ARRIVAL, i FOUND PT ON NRB WITH SPO2 95%. I REMOVED NRB AND PLACED PT BACK ON NC AND SHE QUICKLY DROPPED TO 84%. O2 INCREASED TO 6LPM AND PT RECOVERED TO 91%. POWER MEYER AND I DISCUSSED OPTIONS AND DECIDED TO USE NRB FOR AMBULATION TO BATHROOM WITH CONTINUOUS SPO2. ONCE BACK IN BED, PT WILL BE PLACED BACK ON NC WHICH WILL BE WEANED FOR SPO2 >=92%.
[2020-07-16] MEDS: IPRATROPIUM BR 0.02% INH SOLN 0.5 MG/2.5 ML VIAL INHALATION (20:24)
[2020-07-16] MEDS: ALBUTEROL SULFATE NEB 2.5 MG/0.5 ML INH 5 MG INHALATION (20:24)
[2020-07-16 20:28] LABS: Alveolar/Arterial O2 Gradient 192.7 mmHg; Base Excess ABG 9.4 mEq/l (+/-2.0); Carboxyhemoglobin 0.8 % THb (0-2.0); Fractional Inspired Oxygen 44 %; HCO3 ABG 34.5 mEq/l (22.0-26.0); Methemoglobin ABG 0.5 %THb (0-1.5); Oxygen Content ABG 11.3 %vol (16.0-22.0); Oxygen Saturation ABG 92.6 % (95.0-100.0); Oxyhemoglobin 88.5 % THb (90.0-100.0); PCO2 ABG 51.2 mmHg (35.0-45.0); PO2 ABG 62.7 mmHg (80.0-100.0); PO2 FiO2 Ratio Arterial Blood 1.43 %; Reduced Hemoglobin 10.2 %THb (0-5.0); pH ABG 7.447 (7.350-7.450)
[2020-07-16 20:29] LABS: Device NASAL CANNULA; Modified Allen's Test Pass; Site Drawn LEFT RADIAL
[2020-07-16 22:06] LABS: Glucose Point of Care 112 (65-105)
[2020-07-17] VITALS (20 sets, daily range): BP systolic 108–132; BP diastolic 58–78; PULSE 66–85; RESP 18–26; TEMP 36.1–36.4; O2SAT 88–96
[2020-07-17 05:36] LABS: Hematocrit 26.1 % (37.0-47.0); Hemoglobin 7.5 g/dL (12.0-15.0); Mean Corpuscular HGB Conc 28.7 g/dl (32-36); Mean Corpuscular Volume 69.6 fl (80-100); Mean Platelet Volume 10.2 fl (7.4-10.4); Platelet Count Result 228 k/mm3 (150-375); Red Blood Count 3.75 M/mm3 (4.2-5.4); Red Cell Distribution Width 20.7 % (11.5-14.5); White Blood Count 8.7 K/mm3 (4.5-10.0)
[2020-07-17 05:50] LABS: Anion Gap 5 mmol/L (8-16); Blood Urea Nitrogen 15 mg/dL (7-17); Calcium 9.5 mg/dL (8.4-10.2); Carbon Dioxide 36 mmol/L (22-30); Chloride 97 mmol/L (98-107); Estimated CRCL calculation 74 ml/min; Estimated Glomerular Filt Rate > 60; Glucose 92 mg/dL (65-105); Potassium 3.4 mmol/L (3.4-5.0); Sodium 138 mmol/L (137-145)
[2020-07-17 07:58] LABS: Glucose Point of Care 90 (65-105)
--- NOTE | 2020-07-17 08:25 | PM.PNCARD ---
Progress Note: A&P Assessment and Plan (1) Heart block atrioventricular: Code(s): I44.30 - Unspecified atrioventricular block Status: Acute Assessment and Plan: Mild only rare episodes; no need for pacemaker at this time. Could be due to hypoxia or undiagnosed GUANACO. Received blood transfusions, on oxygen. Placed 30 day event monitor from my office. F/U with me in 3-4 weeks. Will need outpatient sleep study as lab is back open last week. (2) CHF exacerbation: Code(s): I50.9 - Heart failure, unspecified Status: Chronic Assessment and Plan: Acute on chronic diastolic heart failure. She appears to be euvolemic after diuresis. On Lasix 40 mg PO daily. (3) Hypersomnia: Code(s): G47.10 - Hypersomnia, unspecified Status: Acute (4) Hypertension: Qualifiers: Hypertension type: essential hypertension Qualified Code(s): I10 - Essential (primary) hypertension Code(s): I10 - Essential (primary) hypertension Status: Acute Assessment and Plan: Stable. (5) COPD (chronic obstructive pulmonary disease): Qualifiers: COPD type: unspecified COPD Qualified Code(s): J44.9 - Chronic obstructive pulmonary disease, unspecified Code(s): J44.9 - Chronic obstructive pulmonary disease, unspecified Status: Chronic (6) Hyperlipidemia: Qualifiers: Hyperlipidemia type: unspecified Qualified Code(s): E78.5 - Hyperlipidemia, unspecified Code(s): E78.5 - Hyperlipidemia, unspecified Status: Chronic (7) Anemia: Qualifiers: Anemia type: unspecified type Qualified Code(s): D64.9 - Anemia, unspecified Code(s): D64.9 - Anemia, unspecified Status: Chronic Assessment and Plan: Being followed by hospitalist and GI. Subjective Date/time seen: 07/17/20 08:25 Denies chest pain, sob, dizziness. Exam Const: General: comfortable and no acute distress Neck: Neck: no JVD Carotids: no bruits Resp: Auscultation: clear to auscultation bilaterally, no crackles, no rales, no rhonchi and no wheezes Cardio: Rate: regular rate Rhythm: regular rhythm Heart sounds: no murmurs GI: GI Palp: Yes Soft to palpation and No Tenderness to palpation present (GI) Neuro: Speech: normal speech Extrem: Right lower extremity: no edema Left lower extremity: no edema Objective Data Vital Signs Vital Signs: Vital Signs - 24 hr 07/16/20 08:30 07/16/20 09:00 07/16/20 12:30 Temperature Pulse Rate 71 Respiratory Rate Blood Pressure Pulse Oximetry 92 90 07/16/20 13:30 07/16/20 16:00 07/16/20 19:27 Temperature 98.1 F Pulse Rate 71 74 84 Respiratory Rate 19 22 H Blood Pressure 128/59 L Pulse Oximetry 92 92 93 07/16/20 20:00 07/16/20 20:24 07/16/20 20:30 Temperature 96.9 F L Pulse Rate 63 81 70 Respiratory Rate 20 22 H Blood Pressure 135/61 Pulse Oximetry 100 07/16/20 20:35 07/16/20 21:33 07/17/20 00:00 Temperature Pulse Rate 85 62 73 Respiratory Rate 22 H 22 H Blood Pressure Pulse Oximetry 93 07/17/20 02:02 07/17/20 02:10 07/17/20 04:00 Temperature Pulse Rate 72 70 73 Respiratory Rate 20 20 Blood Pressure Pulse Oximetry 96 07/17/20 06:00 Temperature 97 F L Pulse Rate 70 Respiratory Rate 22 H Blood Pressure 132/78 Pulse Oximetry 92 Intake/Output Intake/Output: Intake & Output 07/14/20 07/15/20 07/16/20 07/17/20 23:59 23:59 23:59 23:59 Intake Total 1994 1140 2320 500 Output Total 2900 2100 3200 1650 [facility]905 -960 -880 -1150 Meds/Results Medications: Active Medications Generic Name Dose Route Start Last Admin Trade Name Freq PRN Reason Stop Dose Admin Acetaminophen 650 mg 07/11/20 16:41 07/14/20 21:34 Tylenol Tablet PO 650 mg Q4H PRN Administration Mild Pain (1-3) or Fever Hydrocodone Bitart/Acetaminophen 1 tab 07/11/20 16:41 [place] 5-325 Mg PO Q4H PRN Pain Rated 4-6
[2020-07-17] MEDS: lisinopriL 10 MG TABLET PO (08:35)
[2020-07-17] MEDS: ASPIRIN 81 MG ENTERIC TABLET PO (08:35)
[2020-07-17] MEDS: FERROUS SULFATE 324 MG TABLET PO ×2 (08:35→16:38)
[2020-07-17] MEDS: PANTOPRAZOLE 40 MG TABLET PO (08:35)
[2020-07-17] MEDS: FUROSEMIDE 40 MG TABLET PO (08:35)
[2020-07-17] MEDS: ATORVASTATIN 40 MG TABLET PO (08:35)
[2020-07-17] MEDS: EZETIMIBE 10 MG TABLET PO (08:35)
--- NOTE | 2020-07-17 09:20 | WPDGIPROGNO ---
Progress Note: A&P Additional Plan Patient feels comfortable at rest today. No additional bleeding noted tolerating diet. Physical exam reveals patient to be alert comfortable at rest vital signs stable. Lungs are clear. Heart without murmur. Abdomen is obese bowel sounds present soft nontender with no organomegaly. Labs reveal hemoglobin 7.5, hematocrit 26.1, MCV 69 stable. Impression 1. Gastric ulcer. Now on PPI therapy iron replacement in progress. Plan to avoid nonsteroidal anti-inflammatory agents EGD in 2 months advised. 2. Iron deficiency anemia. Secondary to gastric ulcer. No bleeding evident at present. Plan is to continue iron replacement follow-up blood count after discharge. 3. Congestive heart failure. Followed by cardiology service improving clinically. 4. Heart block. Transient in improved. Cardiology following. Patient anxious to go home. Disposition per Cardiology and primary care service. Subjective Date/time seen: 07/17/20 09:20 Objective Data Vital Signs Vital Signs: Vital Signs - 24 hr 07/16/20 12:30 07/16/20 13:30 07/16/20 16:00 Temperature 98.1 F Pulse Rate 71 71 74 Respiratory Rate 19 Blood Pressure 128/59 L Pulse Oximetry 92 92 07/16/20 19:27 07/16/20 20:00 07/16/20 20:24 Temperature Pulse Rate 84 63 81 Respiratory Rate 22 H 20 Blood Pressure Pulse Oximetry 93 07/16/20 20:30 07/16/20 20:35 07/16/20 21:33 Temperature 96.9 F L Pulse Rate 70 85 62 Respiratory Rate 22 H 22 H 22 H Blood Pressure 135/61 Pulse Oximetry 100 93 07/17/20 00:00 07/17/20 02:02 07/17/20 02:10 Temperature Pulse Rate 73 72 70 Respiratory Rate 20 20 Blood Pressure Pulse Oximetry 96 07/17/20 04:00 07/17/20 06:00 Temperature 97 F L Pulse Rate 73 70 Respiratory Rate 22 H Blood Pressure 132/78 Pulse Oximetry 92 Intake/Output Intake/Output: Intake & Output 07/14/20 07/15/20 07/16/20 07/17/20 23:59 23:59 23:59 23:59 Intake Total 1994 1140 2320 500 Output Total 2900 2100 3200 1650 [facility] -905 -960 -880 -6670 Meds/Results Medications: Active Medications Generic Name Dose Route Start Last Admin Trade Name Freq PRN Reason Stop Dose Admin Acetaminophen 650 mg 07/11/20 16:41 07/14/20 21:34 Tylenol Tablet PO 650 mg Q4H PRN Administration Mild Pain (1-3) or Fever Hydrocodone Bitart/Acetaminophen 1 tab 07/11/20 16:41 [place] 5-325 Mg PO Q4H PRN Pain Rated 4-6 Albuterol 2 puff 07/14/20 10:32 07/15/20 19:28 Proventil Hfa INHALATION 2 puff QIDRT PRN Administration Shortness Of Breath Or Wheezing Albuterol 5 mg 07/17/20 02:00 Albuterol Sulf Neb 2.5mg/0.5ml INHALATION Q6HRT EMIR Aspirin 81 mg 07/12/20 09:00 07/17/20 08:35 Aspirin Ec PO 81 mg DAILY EMIR Administration Atorvastatin Calcium 40 mg 07/12/20 09:00 07/17/20 08:35 Lipitor PO 40 mg DAILY EMIR Administration Budesonide/Formoterol Fumarate 2 puff 07/12/20 00:01 07/16/20 20:34 Symbicort 160-4.5 Mcg (*Sp) Inhaler INHALATION 2 puff Q12HRT EMIR Administration Dextrose 12.5 gm 07/11/20 22:54 Dextrose 50% Syringe IV PUSH PRN PRN Hypoglycemia Protocol Ezetimibe 10 mg 07/12/20 09:00 07/17/20 08:35 Zetia PO 10 mg DAILY EMIR Administration Ferrous Sulfate 324 mg 07/15/20 17:20 07/17/20 08:35 Ferrous Sulfate PO 324 mg BIDWM EMIR Administration Furosemide 40 mg 07/17/20 09:00 07/17/20 08:35 Lasix Tablet PO 40 mg DAILY EMIR Administration Glucagon 1 mg 07/11/20 22:54 Glucagon For Inj IM PRN PRN Hypoglycemia Protocol Glucose 15 gm 07/11/20 22:54 Glutose 15 PO PRN PRN Hypoglycemia Protocol Dextrose 1,000 mls @ 100 mls/hr 07/11/20 22:54 Dextrose 5% 1,000 Ml IVPB PRN PRN Hypoglycemia Protocol Insulin Aspart 2 - 5 units 07/12/20 08:00 07/17/20 08:34 Novolog SUB-Q Not
[2020-07-17] MEDS: IPRATROPIUM BR 0.02% INH SOLN 0.5 MG/2.5 ML VIAL INHALATION ×4 (09:32→19:18)
[2020-07-17] MEDS: ALBUTEROL SULFATE NEB 2.5 MG/0.5 ML INH 5 MG INHALATION ×4 (09:32→19:19)
[2020-07-17 14:15] LABS: Glucose Point of Care 112 (65-105)
[2020-07-17 16:40] LABS: Glucose Point of Care 133 (65-105)
--- NOTE | 2020-07-17 19:10 | PM.IMPN ---
Progress Note: A&P Assessment and Plan (1) Acute and chronic respiratory failure: Code(s): J96.20 - Acute and chronic respiratory failure, unspecified whether with hypoxia or hypercapnia Status: Acute Assessment and Plan: ABG on admission showing nml pH but elevated PCO2 at 49 and pO2 at 64 on 4L. She normally wear 2-3L O2 NC at home. Worsening respiratory condition with now requiring 6L O2. Patient still desats when walking to the bathroom. CTA negative for PE but shows moderate emphysema, pulmonary arterial HTN and adenopathy. No mention of pulm HTN on Echo report. Adenopathy noted: does hse have sarcoid? or lung CA? Wean O2 as tolerated. Repeat Lasix IV x 1. Start Solu-Medrol. Pulmonary consult. (2) CHF exacerbation: Code(s): I50.9 - Heart failure, unspecified Status: Chronic Assessment and Plan: CXR on admission showing mild pulmonary edema and CMG. BNP 1800. Echo 07/13 showing no change since August 2019 with EF 70% and grade I diastolic dysfunction. Excellent UOP with the Lasix with negative fluid balance. Renal function remains stable. Repeat CXR yesterday still showing pulmonary edema. Will continue to wean O2 as tolerated. Lasix IV x1 again tonight. (3) Heart block atrioventricular: Code(s): I44.30 - Unspecified atrioventricular block Status: Acute Assessment and Plan: Patient with infrequent episodes of 2nd degree AVB possibly Mobitz I vs II. Review tele today but not sure since OK interval variable. Suspect related to untreated sleep apnea since this dysrhythmia was less frequent when on the BiPAP. Echo noted. Mag 2 and potassium 3.4. Appreciate Cardiology input. Continue tele. (4) Hypersomnia: Code(s): G47.10 - Hypersomnia, unspecified Status: Acute Assessment and Plan: It is highly suggestive that the patient has obstructive sleep apnea. She has not been able to obtain a sleep study due to the COVID. She follows with Dr Boyd. Pulm consult. Continue autoPAP for now. (5) Microcytic anemia: Code(s): D50.9 - Iron deficiency anemia, unspecified Status: Acute Assessment and Plan: Hgb 10 range last year and now into the 7 range but stable. Could have contributed to her CHF exacerbation. Iron studies are compatible with iron deficiency anemia. B12 normal. Completed IV Iron. EGD showing acute gastric ulcer and esophageal ring. Colonoscopy showing internal hemorrhoids. Anemia could be related to gastric ulcer. Will continue oral iron. (6) Gastric ulcer: Code(s): K25.9 - Gastric ulcer, unspecified as acute or chronic, without hemorrhage or perforation Status: Acute Assessment and Plan: As above. (7) Hypertension: Qualifiers: Hypertension type: essential hypertension Qualified Code(s): I10 - Essential (primary) hypertension Code(s): I10 - Essential (primary) hypertension Status: Acute Assessment and Plan: Patient's blood pressure was reviewed on 07/17 Blood pressure remains well controlled. Continue Lisinopril Continue to monitor. (8) Obesity: Qualifiers: Body mass index: BMI 45.0-49.9 Obesity classification: adult class 3 (BMI >= 40) Obesity type: due to excess calories Serious obesity comorbidity presence: with serious comorbidity Qualified Code(s): E66.01 - Morbid (severe) obesity due to excess calories; Z68.42 - Body mass index (BMI) 45.0-49.9, adult Code(s): E66.9 - Obesity, unspecified Status: Acute Assessment and Plan: BMI 54. Encourage healthy lifestyle choices. (9) COPD (chronic obstructive pulmonary disease): Qualifiers: COPD type: unspecified COPD Qualified Code(s): J44.9 - Chronic obstructive pulmonary disease, unspecified Code(s): J44.9 - Chronic obstructive pulmonary disease, unspecified Status: Chronic Assessment and Plan: Cherrie
[2020-07-17 19:46] LABS: Basophils Percent Auto 0.2 % (0.2-1.2); Eosinophils Absolute Auto 0.1 K/mm3 (0-0.3); Eosinophils Percent Auto 1.1 % (0-4.4); Hematocrit 28.7 % (37.0-47.0); Hemoglobin 8.1 g/dL (12.0-15.0); Immature Granulocyte Absolute 0.04 K/mm3 (0.00-0.031); Immature Granulocyte Percent A 0.4 % (0-0.5); Lymphocytes Absolute Auto 1.05 K/mm3 (0.9-3.2); Mean Corpuscular HGB Conc 28.2 g/dl (32-36); Mean Corpuscular Hemoglobin 20.4 pg (26-34); Mean Corpuscular Volume 72.1 fl (80-100); Mean Platelet Volume 10.4 fl (7.4-10.4); Monocytes Absolute Auto 0.6 K/mm3 (0.1-0.6); Monocytes Percent Auto 6.1 % (2.6-8.5); Neutrophils Absolute Auto 7.8 K/mm3 (1.3-6.7); Neutrophils Percent Auto 81.2 % (45.5-73.1); Platelet Count Result 226 k/mm3 (150-375); Red Blood Count 3.98 M/mm3 (4.2-5.4); Red Cell Distribution Width 21.3 % (11.5-14.5); White Blood Count 9.6 K/mm3 (4.5-10.0)
[2020-07-17 20:10] LABS: Hypochromasia 1+ (NORMAL); Platelet Estimate Adequate (Adequate)
[2020-07-17 20:11] LABS: Anisocytosis 3+ (NORMAL)
[2020-07-17] MEDS: methylPREDNISolone SOD SUCC 125 MG VIAL 60 MG IV PUSH (20:21)
[2020-07-17] MEDS: FUROSEMIDE INJ 40 MG/4 ML VIAL IV PUSH (20:21)
[2020-07-17] MEDS: POTASSIUM CHLORIDE 20 MEQ TABLET 40 MEQ PO (20:21)
[2020-07-17 21:19] LABS: Glucose Point of Care 137 (65-105)
[2020-07-18] VITALS (20 sets, daily range): BP systolic 108–122; BP diastolic 48–60; PULSE 69–97; RESP 14–20; TEMP 36.1–36.5; O2SAT 92–97
[2020-07-18] MEDS: IPRATROPIUM BR 0.02% INH SOLN 0.5 MG/2.5 ML VIAL INHALATION ×2 (03:11→09:08)
[2020-07-18] MEDS: ALBUTEROL SULFATE NEB 2.5 MG/0.5 ML INH 5 MG INHALATION ×2 (03:11→09:08)
[2020-07-18] MEDS: methylPREDNISolone SOD SUCC 125 MG VIAL 60 MG IV PUSH (05:21)
[2020-07-18 06:07] LABS: Hematocrit 28.8 % (37.0-47.0); Hemoglobin 8.2 g/dL (12.0-15.0); Immature Platelet Fraction Pct 4.9 % (0.9-11.2); Mean Corpuscular HGB Conc 28.5 g/dl (32-36); Mean Corpuscular Hemoglobin 20.2 pg (26-34); Mean Corpuscular Volume 70.9 fl (80-100); Mean Platelet Volume 10.7 fl (7.4-10.4); Platelet Count Result 224 k/mm3 (150-375); Red Blood Count 4.06 M/mm3 (4.2-5.4); White Blood Count 9.2 K/mm3 (4.5-10.0)
[2020-07-18 06:09] LABS: Alanine Aminotransferase 15 U/L (4-35); Albumin Level 3.8 g/dL (3.5-5.1); Alkaline Phosphatase 124 U/L (38-126); Anion Gap 5 mmol/L (8-16); Aspartate Amino Transferase 42 U/L (14-36); Bilirubin,Total 0.5 mg/dL (0.2-1.3); Blood Urea Nitrogen 17 mg/dL (7-17); CRP 2.1 mg/dL (<1.0); Calcium 9.6 mg/dL (8.4-10.2); Carbon Dioxide 37 mmol/L (22-30); Chloride 97 mmol/L (98-107); Estimated CRCL calculation 67 ml/min; Estimated Glomerular Filt Rate > 60; Glucose 182 mg/dL (65-105); Potassium 4.3 mmol/L (3.4-5.0); Sodium 139 mmol/L (137-145)
--- NOTE | 2020-07-18 07:56 | PM.PNCARD ---
Progress Note: A&P Assessment and Plan (1) Heart block atrioventricular: Code(s): I44.30 - Unspecified atrioventricular block Status: Acute Assessment and Plan: Telemetry reviewed. She had a few non-conducted PAC's last night. Mild only rare episodes of AV block; no need for pacemaker at this time. Could be due to hypoxia or undiagnosed GUANACO. Received blood transfusions, on oxygen. Placed 30 day event monitor from my office. F/U with me in 3-4 weeks. Will need outpatient sleep study as lab is back open last week. (2) CHF exacerbation: Code(s): I50.9 - Heart failure, unspecified Status: Chronic Assessment and Plan: Acute on chronic diastolic heart failure. I reviewed echo which shows grade I diastolic dysfunction (E/e' 16) with moderate pulmonary hypertension with RVSP 56 mmHg. She appears to be euvolemic after diuresis. On Lasix 40 mg PO daily, has been receiving Lasix 40 mg IV prn daily for mild pulm edema on CXR. Could try increase diuresis Lasix 40 mg IV BID to see if this helps. (3) Hypersomnia: Code(s): G47.10 - Hypersomnia, unspecified Status: Acute Assessment and Plan: Will need outpatient sleep study. (4) Hypertension: Qualifiers: Hypertension type: essential hypertension Qualified Code(s): I10 - Essential (primary) hypertension Code(s): I10 - Essential (primary) hypertension Status: Acute Assessment and Plan: Stable. (5) COPD (chronic obstructive pulmonary disease): Qualifiers: COPD type: unspecified COPD Qualified Code(s): J44.9 - Chronic obstructive pulmonary disease, unspecified Code(s): J44.9 - Chronic obstructive pulmonary disease, unspecified Status: Chronic (6) Hyperlipidemia: Qualifiers: Hyperlipidemia type: unspecified Qualified Code(s): E78.5 - Hyperlipidemia, unspecified Code(s): E78.5 - Hyperlipidemia, unspecified Status: Chronic (7) Anemia: Qualifiers: Anemia type: unspecified type Qualified Code(s): D64.9 - Anemia, unspecified Code(s): D64.9 - Anemia, unspecified Status: Chronic Assessment and Plan: Being followed by hospitalist and GI. Improving to Hb 8.2 today. Subjective Date/time seen: 07/18/20 07:56 She feels good and would like to go home. Denies sob or edema. No chest pains or dizziness. Exam Const: General: comfortable and no acute distress Neck: Neck: no JVD Carotids: no bruits Resp: Auscultation: clear to auscultation bilaterally, no crackles, no rales, no rhonchi and no wheezes Cardio: Rate: regular rate Rhythm: regular rhythm Heart sounds: no murmurs GI: GI Palp: Yes Soft to palpation and No Tenderness to palpation present (GI) Neuro: Speech: normal speech Extrem: Right lower extremity: no edema Left lower extremity: no edema Objective Data Vital Signs Vital Signs: Vital Signs - 24 hr 07/17/20 08:00 07/17/20 09:33 07/17/20 09:34 Temperature Pulse Rate 80 66 66 Respiratory Rate 20 20 Blood Pressure Pulse Oximetry 92 07/17/20 09:40 07/17/20 12:00 07/17/20 13:50 Temperature Pulse Rate 70 81 68 Respiratory Rate 20 20 Blood Pressure Pulse Oximetry 07/17/20 14:00 07/17/20 14:05 07/17/20 16:00 Temperature 97.6 F Pulse Rate 75 70 85 Respiratory Rate 18 20 Blood Pressure 108/76 Pulse Oximetry 94 07/17/20 19:20 07/17/20 19:21 07/17/20 19:28 Temperature Pulse Rate 66 66 67 Respiratory Rate 20 20 20 Blood Pressure Pulse Oximetry 92 07/17/20 20:00 07/17/20 21:33 07/17/20 21:58 Temperature 97.6 F Pulse Rate 82 78 66 Respiratory Rate 18 26 H Blood Pressure 109/58 L Pulse Oximetry 96 88 L 07/18/20 00:00 07/18/20 02:00 07/18/20 02:05 Temperature Pulse Rate 79 70 71 Respiratory Rate 20 20 Blood Pressure Pulse Oximetry 93 07/18/20 02:10 07/18/20 04:00 07/18/20 06:00 Temperature 96.9 F L Pulse R
[2020-07-18 07:57] LABS: Glucose Point of Care 188 (65-105)
[2020-07-18] MEDS: acetaZOLAMIDE TAB 250 MG TABLET PO (07:58)
[2020-07-18] MEDS: ASPIRIN 81 MG ENTERIC TABLET PO (07:58)
[2020-07-18] MEDS: EZETIMIBE 10 MG TABLET PO (07:58)
[2020-07-18] MEDS: PANTOPRAZOLE 40 MG TABLET PO (07:59)
[2020-07-18] MEDS: lisinopriL 10 MG TABLET PO (07:59)
[2020-07-18] MEDS: FERROUS SULFATE 324 MG TABLET PO ×2 (07:59→16:42)
[2020-07-18] MEDS: ATORVASTATIN 40 MG TABLET PO (07:59)
[2020-07-18] MEDS: FUROSEMIDE 40 MG TABLET PO (07:59)
[2020-07-18] MEDS: BUDESONIDE RESPULE NEB 0.5 MG/2 ML AMP INHALATION (09:08)
--- NOTE | 2020-07-18 09:20 | PM.IMPN ---
Progress Note: A&P Assessment and Plan (1) Acute and chronic respiratory failure: Code(s): J96.20 - Acute and chronic respiratory failure, unspecified whether with hypoxia or hypercapnia Status: Acute Assessment and Plan: ABG on admission showing nml pH but elevated PCO2 at 49 and pO2 at 64 on 4L. She normally wear 2-3L O2 NC at home. Worsening respiratory condition that required up to 6L O2. Patient still desats when walking to the bathroom. CTA negative for PE but shows moderate emphysema, pulmonary arterial HTN and adenopathy. No mention of pulm HTN on Echo report. Adenopathy noted: sarcoid? lung CA? CXR still showing pulm edema but clinically, fluid status better. Wean O2 as tolerated. Change to IV Lasix IV x 1. Continue Solu-Medrol. Pulmonary to see. May need BiPAP at home. Consider apnea link tonight if able to get down to 3L (2) CHF exacerbation: Code(s): I50.9 - Heart failure, unspecified Status: Chronic Assessment and Plan: CXR on admission showing mild pulmonary edema and CMG. BNP 1800. Echo 07/13 showing no change since August 2019 with EF 70% and grade I diastolic dysfunction. Excellent UOP with the Lasix with negative fluid balance. Renal function remains stable. Repeat CXR yesterday still showing pulmonary edema. Will continue to wean O2 as tolerated. Lasix IV x1 again tonight. (3) Heart block atrioventricular: Code(s): I44.30 - Unspecified atrioventricular block Status: Acute Assessment and Plan: Patient with infrequent episodes of 2nd degree AVB possibly Mobitz I vs II. Review tele today but appears to be more of an aberant P wave. Suspect related to untreated sleep apnea since this dysrhythmia is less frequent when on the BiPAP. Echo noted. Mag 2 and potassium 4.3. Appreciate Cardiology input. Continue tele. (4) Hypersomnia: Code(s): G47.10 - Hypersomnia, unspecified Status: Acute Assessment and Plan: It is highly suggestive that the patient has obstructive sleep apnea. She has not been able to obtain a sleep study due to the COVID. She follows with Dr Boyd. Pulm consult. Continue autoPAP for now. May need APnea link tonight to try to get unit at home for her. (5) Microcytic anemia: Code(s): D50.9 - Iron deficiency anemia, unspecified Status: Acute Assessment and Plan: Hgb 10 range last year and now into the 8 range and improving. Could have contributed to her CHF exacerbation. Iron studies are compatible with iron deficiency anemia. B12 normal. Completed IV Iron. EGD showing acute gastric ulcer and esophageal ring s/p dilation. Colonoscopy showing internal hemorrhoids. Anemia could be related to gastric ulcer. Will continue oral iron. (6) Gastric ulcer: Code(s): K25.9 - Gastric ulcer, unspecified as acute or chronic, without hemorrhage or perforation Status: Acute Assessment and Plan: As above. (7) Hypertension: Qualifiers: Hypertension type: essential hypertension Qualified Code(s): I10 - Essential (primary) hypertension Code(s): I10 - Essential (primary) hypertension Status: Acute Assessment and Plan: Patient's blood pressure was reviewed on 07/18 Blood pressure remains well controlled. Continue Lisinopril Continue to monitor. (8) Obesity: Qualifiers: Body mass index: BMI 45.0-49.9 Obesity classification: adult class 3 (BMI >= 40) Obesity type: due to excess calories Serious obesity comorbidity presence: with serious comorbidity Qualified Code(s): E66.01 - Morbid (severe) obesity due to excess calories; Z68.42 - Body mass index (BMI) 45.0-49.9, adult Code(s): E66.9 - Obesity, unspecified Status: Acute Assessment and Plan: BMI 54. Encourage healthy lifestyle choices. (9) COPD (chronic obstructive pulmonary disease): Qualifiers: COPD type: unspecified C
--- NOTE | 2020-07-18 11:15 | PM.CNPUL ---
Assessment and Plan Assessment and plan (1) Acute diastolic (congestive) heart failure: Code(s): I50.31 - Acute diastolic (congestive) heart failure Status: Acute Assessment and Plan: - appears euvolemic today - suggest resuming home dose of lasix - added diamox 250 mg daily, continue for 2-3 days (2) Pulmonary hypertension assoc with unclear multi-factorial mechanisms: Code(s): I27.29 - Other secondary pulmonary hypertension Status: Acute Assessment and Plan: Likely due to combination of CHF, underlying undiagnosed GUANACO, COPD and chronic hypoxemia - treat underlying conditions - I ordered an outpatient home sleep study so she can start CPAP therapy. Likleyhood is moderate to high for having GUANACO (3) Pulmonary nodules: Code(s): R91.8 - Other nonspecific abnormal finding of lung field Status: Acute Assessment and Plan: bilateral pulmonary nodules with mediastinal adenopathy. DD is Sarcoid vs benign findings, infectious or malignancy. - needs PET CT scan which for some reason I can't order on this EMR system - If PET is positive then she will need further invasive investigations - if PET negative, she will need serial CT chest every 3-6 months with IV contrast (4) COPD (chronic obstructive pulmonary disease): Qualifiers: COPD type: unspecified COPD Qualified Code(s): J44.9 - Chronic obstructive pulmonary disease, unspecified Code(s): J44.9 - Chronic obstructive pulmonary disease, unspecified Status: Chronic Assessment and Plan: No signs of COPD exacerbation - d/c solumedrol and nebulizers - resume Symbicort 160/4.5 mcg 2 puffs bid via spacer device - will add Spiriva 18 mcg 1 puff daily - f/u in our pulmonary clinic in 4-6 weeks History of Present Illness History of Present Illness Consult date: 07/18/20 Chief complaint: chf exacerbation,increased o2 requirement Narrative: 60 y/o obese female presents with increased LE edema, dyspnea, orthpnea and PND. She was on Lasix 40 mg PO daily and says that she adheres to low salt diet. Her lasix was increased to 40 mg IV bid and she is now feeling much better and back to baseline. She denies infectious symptoms. She has history of diastolic CHF, HTN, DM II, heart block, hyperlipidemia, COPD. She has a 40 pack year smoking history but quit a few years ago. She is normal on oxygen 2-3 liters at home but her oxygen demands have been higher during this admission but slowly coming down. Today she's 97% on [address] chest showed cardiomegaly, CHF, background of Emphysema, bilateral pulmonary nodules with mediastinal adenopathy of unkown signficance. These nodules are not spiculated. They do not appear accessible by Bronch or CT guided biopsy safely. She also had large pulmonary arteries and although her Echo did not report PHTN in the impression, the body clearly states an RVSP of 62 mmg Hg consistent with clinical and radiographic findings Review of Systems Review of Systems: All systems reviewed & are unremarkable except as noted in HPI and below PMFSH Past Medical History Medical History Adrenal mass Anemia COPD (chronic obstructive pulmonary disease) Diabetes mellitus DM2 (diabetes mellitus, type 2) Hyperlipidemia Hypertension Lung nodule 11 mm Tobacco abuse Surgical History Surgical History (Updated 07/11/20 @ 23:03 by aSrah London NP) H/O section x3 History of appendectomy Hx of cholecystectomy Family History Family History Grandparent Congestive heart failure Mother HTN (hypertension) with goal to be determined Hyperlipidemia Cancer Sibling Age: 53 HTN (hypertension) with goal to be determined Asthma Lupus Sibling Age: 50 Diabetes mellitus Heart disease Social History Social History (Updated 07/11/20 @ 23:08 by Sarah London NP)
[2020-07-18 11:59] LABS: Glucose Point of Care 209 (65-105)
[2020-07-18] MEDS: INSULIN ASPART (*BKC) 100 UNITS/ML SUB-Q (12:02)
--- NOTE | 2020-07-18 15:01 | PCRCNOTE ---
titrated pt from 5.5 l o2 to 4l o2. pt maintains sat on 4lpm but with exertion drops in the low 80s. pt states she wears 2-3 lpm at home
[2020-07-18] MEDS: FUROSEMIDE INJ 40 MG/4 ML VIAL IV PUSH (16:42)
[2020-07-18 17:04] LABS: Glucose Point of Care 156 (65-105)
[2020-07-18 22:05] LABS: Glucose Point of Care 180 (65-105)
[2020-07-19] VITALS (10 sets, daily range): BP systolic 102–127; BP diastolic 52–70; PULSE 69–87; RESP 12–18; TEMP 36.2–36.5; O2SAT 90–100
[2020-07-19 06:37] LABS: Anion Gap 6 mmol/L (8-16); Blood Urea Nitrogen 26 mg/dL (7-17); Calcium 9.5 mg/dL (8.4-10.2); Carbon Dioxide 35 mmol/L (22-30); Chloride 97 mmol/L (98-107); Estimated CRCL calculation 62 ml/min; Estimated Glomerular Filt Rate 55; Glucose 138 mg/dL (65-105); Potassium 3.8 mmol/L (3.4-5.0); Sodium 138 mmol/L (137-145)
[2020-07-19] MEDS: ATORVASTATIN 40 MG TABLET PO (07:55)
[2020-07-19] MEDS: EZETIMIBE 10 MG TABLET PO (07:55)
[2020-07-19] MEDS: PANTOPRAZOLE 40 MG TABLET PO (07:55)
[2020-07-19] MEDS: ASPIRIN 81 MG ENTERIC TABLET PO (07:56)
[2020-07-19] MEDS: lisinopriL 10 MG TABLET PO (07:56)
[2020-07-19] MEDS: FUROSEMIDE INJ 40 MG/4 ML VIAL IV PUSH (07:56)
[2020-07-19] MEDS: FERROUS SULFATE 324 MG TABLET PO ×2 (07:56→17:12)
[2020-07-19] MEDS: acetaZOLAMIDE TAB 250 MG TABLET PO (07:56)
[2020-07-19 08:11] LABS: Glucose Point of Care 120 (65-105)
--- NOTE | 2020-07-19 09:00 | PM.PNCARD ---
Progress Note: A&P Assessment and Plan (1) Heart block atrioventricular: Code(s): I44.30 - Unspecified atrioventricular block Status: Acute Assessment and Plan: Telemetry reviewed. She had a few non-conducted PAC's last night. Mild only rare episodes of AV block; no need for pacemaker at this time. Could be due to hypoxia or undiagnosed GUANACO. Received blood transfusions, on oxygen. Placed 30 day event monitor from my office. F/U with me in 3-4 weeks. Will need outpatient sleep study as lab is back open last week. (2) CHF exacerbation: Code(s): I50.9 - Heart failure, unspecified Status: Chronic Assessment and Plan: Acute on chronic diastolic heart failure. I reviewed echo which shows grade I diastolic dysfunction (E/e' 16) with moderate pulmonary hypertension with RVSP 56 mmHg. She appears to be euvolemic after diuresis. On Lasix 40 mg PO daily, has been receiving Lasix 40 mg IV prn daily for mild pulm edema on CXR. (3) Hypersomnia: Code(s): G47.10 - Hypersomnia, unspecified Status: Acute Assessment and Plan: Will need outpatient sleep study. (4) Hypertension: Qualifiers: Hypertension type: essential hypertension Qualified Code(s): I10 - Essential (primary) hypertension Code(s): I10 - Essential (primary) hypertension Status: Acute Assessment and Plan: Stable. (5) COPD (chronic obstructive pulmonary disease): Qualifiers: COPD type: unspecified COPD Qualified Code(s): J44.9 - Chronic obstructive pulmonary disease, unspecified Code(s): J44.9 - Chronic obstructive pulmonary disease, unspecified Status: Chronic (6) Hyperlipidemia: Qualifiers: Hyperlipidemia type: unspecified Qualified Code(s): E78.5 - Hyperlipidemia, unspecified Code(s): E78.5 - Hyperlipidemia, unspecified Status: Chronic (7) Anemia: Qualifiers: Anemia type: unspecified type Qualified Code(s): D64.9 - Anemia, unspecified Code(s): D64.9 - Anemia, unspecified Status: Chronic Assessment and Plan: Being followed by hospitalist and GI. Improving to Hb 8.2 yesterday. (8) Pulmonary hypertension assoc with unclear multi-factorial mechanisms: Code(s): I27.29 - Other secondary pulmonary hypertension Status: Acute Subjective Date/time seen: 07/19/20 09:00 Denies chest pain or sob or dizziness. Exam Const: General: comfortable and no acute distress Neck: Neck: no JVD Carotids: no bruits Resp: Auscultation: clear to auscultation bilaterally, no crackles, no rales, no rhonchi and no wheezes Cardio: Rate: regular rate Rhythm: regular rhythm Heart sounds: no murmurs GI: GI Palp: Yes Soft to palpation and No Tenderness to palpation present (GI) Neuro: Speech: normal speech Extrem: Right lower extremity: no edema Left lower extremity: no edema Objective Data Vital Signs Vital Signs: Vital Signs - 24 hr 07/18/20 09:09 07/18/20 09:14 07/18/20 09:16 Temperature Pulse Rate 81 82 Respiratory Rate 20 20 Blood Pressure Pulse Oximetry 97 07/18/20 10:00 07/18/20 12:00 07/18/20 14:30 Temperature 97.2 F L Pulse Rate 76 71 Respiratory Rate 14 Blood Pressure 108/48 L Pulse Oximetry 93 92 07/18/20 16:00 07/18/20 20:00 07/18/20 20:24 Temperature Pulse Rate 74 76 83 Respiratory Rate 20 Blood Pressure Pulse Oximetry 07/18/20 20:25 07/18/20 21:50 07/18/20 22:00 Temperature 97.7 F Pulse Rate 78 82 Respiratory Rate 16 18 Blood Pressure 115/60 Pulse Oximetry 94 93 97 07/18/20 23:00 07/19/20 00:00 07/19/20 04:00 Temperature Pulse Rate 81 70 69 Respiratory Rate 15 Blood Pressure Pulse Oximetry 96 07/19/20 06:00 07/19/20 07:37 Temperature 97.1 F L Pulse Rate 74 Respiratory Rate 18 Blood Pressure 127/68 Pulse Oximetry 92 92 Intake/Output Intake/Output: Intake & Output 07/16/20 09
--- NOTE | 2020-07-19 09:29 | PM.IMPN ---
Progress Note: A&P Assessment and Plan (1) Acute and chronic respiratory failure: Code(s): J96.20 - Acute and chronic respiratory failure, unspecified whether with hypoxia or hypercapnia Status: Acute Assessment and Plan: ABG on admission showing nml pH but elevated PCO2 at 49 and pO2 at 64 on 4L. She normally wear 2-3L O2 NC at home. Worsening respiratory condition that required up to 6L O2. Patient still desats when walking to the bathroom. CTA negative for PE but shows moderate emphysema, pulmonary arterial HTN and adenopathy. No mention of pulm HTN on Echo report. Adenopathy noted: sarcoid? lung CA? CXR 07/18 still showing pulm edema but clinically, fluid status better. Changed back to IV Lasix with improvement. Solu-Medrol x2 doses then stopped. Appreciate Pulmonary and Cardiology input. May need BiPAP at home. Apnea link tonight and home O2 evaluation tomorrow (2) CHF exacerbation: Code(s): I50.9 - Heart failure, unspecified Status: Chronic Assessment and Plan: CXR on admission showing mild pulmonary edema and CMG. BNP 1800. Echo 07/13 showing no change since August 2019 with EF 70% and grade I diastolic dysfunction. Excellent UOP with the Lasix with negative fluid balance. Renal function remains stable. Repeat CXR 07/18 still showing pulmonary edema. Back to O2 baseline, Will change to oral Lasix now (3) Heart block atrioventricular: Code(s): I44.30 - Unspecified atrioventricular block Status: Acute Assessment and Plan: Patient with infrequent episodes of 2nd degree AVB possibly Mobitz I vs II. Review tele today but appears to be more of an aberant P wave that does not march out. Suspect related to untreated sleep apnea since this dysrhythmia is less frequent when on the BiPAP. Echo noted. Last Mag 2 and potassium 3.8. Appreciate Cardiology input. Okay to stop tele. (4) Hypersomnia: Code(s): G47.10 - Hypersomnia, unspecified Status: Acute Assessment and Plan: It is highly suggestive that the patient has obstructive sleep apnea. She has not been able to obtain a sleep study due to the COVID. She follows with Dr Boyd. Pulm consult. Continue autoPAP for now. Apnea link tonight to try to get unit at home for her. (5) Microcytic anemia: Code(s): D50.9 - Iron deficiency anemia, unspecified Status: Acute Assessment and Plan: Hgb 10 range last year and now into the 8 range and improving. Could have contributed to her CHF exacerbation. Iron studies are compatible with iron deficiency anemia. B12 normal. Completed IV Iron. EGD showing acute gastric ulcer and esophageal ring s/p dilation. Colonoscopy showing internal hemorrhoids. Anemia could be related to gastric ulcer. Will continue oral iron. Follow HH periodically. (6) Gastric ulcer: Code(s): K25.9 - Gastric ulcer, unspecified as acute or chronic, without hemorrhage or perforation Status: Acute Assessment and Plan: As above. (7) Hypertension: Qualifiers: Hypertension type: essential hypertension Qualified Code(s): I10 - Essential (primary) hypertension Code(s): I10 - Essential (primary) hypertension Status: Acute Assessment and Plan: Patient's blood pressure was reviewed on 07/19 Blood pressure remains well controlled. Continue Lisinopril Continue to monitor. (8) Obesity: Qualifiers: Body mass index: BMI 45.0-49.9 Obesity classification: adult class 3 (BMI >= 40) Obesity type: due to excess calories Serious obesity comorbidity presence: with serious comorbidity Qualified Code(s): E66.01 - Morbid (severe) obesity due to excess calories; Z68.42 - Body mass index (BMI) 45.0-49.9, adult Code(s): E66.9 - Obesity, unspecified Status: Acute Assessment and Plan: BMI 54. Encourage healthy lifestyle choices. (9) COPD (chronic obstructive pulmonary dis
[2020-07-19 11:48] LABS: Glucose Point of Care 123 (65-105)
[2020-07-19 16:48] LABS: Glucose Point of Care 129 (65-105)
--- NOTE | 2020-07-19 17:33 | PM.PNPUL ---
Progress Note: A&P Assessment and Plan (1) Pulmonary nodules: Code(s): R91.8 - Other nonspecific abnormal finding of lung field Status: Acute Assessment and Plan: bilateral pulmonary nodules with lymphadenoapthy: DD is Sarcoid, malignancy, indolent infection such as fungal disease, or benign finding. No signs of acute respiratory tract infection. This does not look like pneumonia. Please arrange for PET CT as outpatient with f/u in out office 1-2 weeks later. (2) Pulmonary hypertension assoc with unclear multi-factorial mechanisms: Code(s): I27.29 - Other secondary pulmonary hypertension Status: Acute Assessment and Plan: RVSP of [address] Hopkins. Appreiciate his input. Likely due to combination of chronic hypoxemia, COPD, undiagnosed GUANACO and left sided diastolic dysfunction. (3) Acute diastolic (congestive) heart failure: Code(s): I50.31 - Acute diastolic (congestive) heart failure Status: Acute (4) COPD (chronic obstructive pulmonary disease): Qualifiers: COPD type: unspecified COPD Qualified Code(s): J44.9 - Chronic obstructive pulmonary disease, unspecified Code(s): J44.9 - Chronic obstructive pulmonary disease, unspecified Status: Chronic Assessment and Plan: No signs of exacerbation - continue Spiriva 18 mcg 1 puff daily along with Symbicort 160/4.5 mcg 2 puffs bid via spacer device Additional Plan Appears euvolemic now. - check BMP daily - discontinue diamox on discharge Subjective Date/time seen: 07/19/20 17:33 Interval history: Feeling well, down to 3 liters nasal cannula and sats are 92-100%. Appears euvolemic. No need for BIPAP. Would wait for home sleep study and treat with APAP or CPAP settings. This can be done as outpatient Review of Systems Review of Systems: All systems reviewed & are unremarkable except as noted in HPI and below Exam Const: General: comfortable and no acute distress HENMT: Mouth: Yes moist mucous membranes Eyes: General: appearance normal, both eyes and all related structures Neck: Neck: supple and no JVD Resp: Auscultation: clear to auscultation bilaterally, no crackles, no rales, no rhonchi and diminished lung sounds Cardio: Rate: regular rate Rhythm: regular rhythm Heart sounds: Murmur heart sound present GI: GI Palp: Yes Soft to palpation Auscultation: normal bowel sounds Skin: General skin exam: normal color and no rashes or lesions noted Neuro: Speech: normal speech Extrem: General: normal to inspection, no edema and no pedal edema Psych: Mental Status: mental status grossly normal Affect: normal affect Objective Data Vital Signs Vital Signs: Vital Signs - 24 hr 07/18/20 20:00 07/18/20 20:24 07/18/20 20:25 Temperature Pulse Rate 76 83 Respiratory Rate 20 Blood Pressure Pulse Oximetry 94 07/18/20 21:50 07/18/20 22:00 07/18/20 23:00 Temperature 36.5 C Pulse Rate 78 82 81 Respiratory Rate 16 18 15 Blood Pressure 115/60 Pulse Oximetry 93 97 96 07/19/20 00:00 07/19/20 04:00 07/19/20 06:00 Temperature 36.2 C L Pulse Rate 70 69 74 Respiratory Rate 18 Blood Pressure 127/68 Pulse Oximetry 92 07/19/20 07:37 07/19/20 08:00 07/19/20 09:36 Temperature Pulse Rate 77 Respiratory Rate Blood Pressure Pulse Oximetry 92 96 07/19/20 14:00 Temperature 36.5 C Pulse Rate 87 Respiratory Rate 12 Blood Pressure 102/52 L Pulse Oximetry 100 Intake/Output Intake/Output: Intake & Output 07/16/20 07/17/20 07/18/20 07/19/20 23:59 23:59 23:59 23:59 Intake Total 2320 1670 1690 1900 Output Total 3200 2850 3450 2450 Balance -356 -7731 -7081 -610 Meds/Results Medications: Active Medications Generic Name Dose Route Start Last Admin Trade Name Freq PRN Reason Stop Dose Admin Acetaminophen 650 mg 07/11/20 16:41 07/14/20 21:34 Tylenol Tablet PO 650 mg Q4H PRN Administration Mild Pain (1-3) or Fever
[2020-07-19 23:24] LABS: Glucose Point of Care 139 (65-105)
[2020-07-20] VITALS (10 sets, daily range): BP systolic 108–110; BP diastolic 51; PULSE 83–101; RESP 18–20; TEMP 36.3–36.4; O2SAT 85–94
[2020-07-20 05:30] LABS: Hematocrit 30.3 % (37.0-47.0); Hemoglobin 8.7 g/dL (12.0-15.0); Mean Corpuscular HGB Conc 28.7 g/dl (32-36); Mean Corpuscular Hemoglobin 20.5 pg (26-34); Mean Corpuscular Volume 71.3 fl (80-100); Platelet Count Result 262 k/mm3 (150-375); Red Blood Count 4.25 M/mm3 (4.2-5.4); Red Cell Distribution Width 21.9 % (11.5-14.5); White Blood Count 11.2 K/mm3 (4.5-10.0)
[2020-07-20 05:43] LABS: Anion Gap 5 mmol/L (8-16); Blood Urea Nitrogen 30 mg/dL (7-17); Calcium 9.3 mg/dL (8.4-10.2); Carbon Dioxide 35 mmol/L (22-30); Chloride 98 mmol/L (98-107); Estimated CRCL calculation 57 ml/min; Estimated Glomerular Filt Rate 50; Glucose 125 mg/dL (65-105); Potassium 3.7 mmol/L (3.4-5.0); Sodium 138 mmol/L (137-145)
--- NOTE | 2020-07-20 06:33 | PM.DS ---
DS: Admitting Diagnosis Admitting Diagnosis Admitting Diagnosis: chf exacerbation,increased o2 requirement date of service 07/20/20 DS: Discharge Diagnosis Discharge Diagnosis (1) Acute and chronic respiratory failure: Code(s): J96.20 - Acute and chronic respiratory failure, unspecified whether with hypoxia or hypercapnia Status: Acute Assessment and Plan: -------New o2 eval shows that she needs 3L at rest and 6 with activity. (used to wear 2-3L at home). ABG on admission showing nml pH but elevated PCO2 at 49 and pO2 at 64 on 4L. CTA negative for PE but shows moderate emphysema, pulmonary arterial HTN and adenopathy. No mention of pulm HTN on Echo report. Adenopathy noted: sarcoid? lung CA? CXR still showing pulm edema but clinically, fluid status much better. Pulmonology plans to arrange PET CT as outpt. Pt plans to f/u with pulmonology 07/24/20. (2) CHF exacerbation: Code(s): I50.9 - Heart failure, unspecified Status: Chronic Assessment and Plan: ----CXR on admission showing mild pulmonary edema and CMG. BNP 1800. Echo 07/13 showing no change since August 2019 with EF 70% and grade I diastolic dysfunction. Excellent UOP with the Lasix with negative fluid balance. Renal function remains stable. Follow up with Dr. Sandeep robles. (3) Heart block atrioventricular: Code(s): I44.30 - Unspecified atrioventricular block Status: Acute Assessment and Plan: -------Patient with infrequent episodes of 2nd degree AVB possibly [place]itz I vs II. Review tele today but appears to be more of an aberant P wave. Suspect related to untreated sleep apnea since this dysrhythmia is less frequent when on the BiPAP. Heart monitor placed. (4) Hypersomnia: Code(s): G47.10 - Hypersomnia, unspecified Status: Acute Assessment and Plan: --------It is highly suggestive that the patient has obstructive sleep apnea. Sleep apnea test ordered. She has not been able to obtain a sleep study due to the COVID, but I believe they are taking patients again. (5) Microcytic anemia: Code(s): D50.9 - Iron deficiency anemia, unspecified Status: Acute Assessment and Plan: -----Hgb 10 range last year and now into the 8 range and improving. Could have contributed to her CHF exacerbation. Iron studies are compatible with iron deficiency anemia. B12 normal. Completed IV Iron, continue oral iron. EGD showing acute gastric ulcer and esophageal ring s/p dilation. Colonoscopy showing internal hemorrhoids. Anemia could be related to gastric ulcer. Will continue oral iron. (6) Gastric ulcer: Code(s): K25.9 - Gastric ulcer, unspecified as acute or chronic, without hemorrhage or perforation Status: Acute Assessment and Plan: -----continue pantoprazole. (7) Hypertension: Qualifiers: Hypertension type: essential hypertension Qualified Code(s): I10 - Essential (primary) hypertension Code(s): I10 - Essential (primary) hypertension Status: Acute Assessment and Plan: -----Last bp 110/51. (8) Obesity: Qualifiers: Body mass index: BMI 45.0-49.9 Obesity classification: adult class 3 (BMI >= 40) Obesity type: due to excess calories Serious obesity comorbidity presence: with serious comorbidity Qualified Code(s): E66.01 - Morbid (severe) obesity due to excess calories; Z68.42 - Body mass index (BMI) 45.0-49.9, adult Code(s): E66.9 - Obesity, unspecified Status: Acute Assessment and Plan: ------ BMI 54. Encourage healthy lifestyle choices. (9) COPD (chronic obstructive pulmonary disease): Qualifiers: COPD type: unspecified COPD Qualified Code(s): J44.9 - Chronic obstructive pulmonary disease, unspecified Code(s): J44.9 - Chronic obstructive pulmonary disease, unspecified Status: Chronic Assessment and Plan: ------- Wheezing has resol
[2020-07-20 07:31] LABS: Glucose Point of Care 130 (65-105)
[2020-07-20] MEDS: FERROUS SULFATE 324 MG TABLET PO (07:32)
[2020-07-20] MEDS: ASPIRIN 81 MG ENTERIC TABLET PO (07:32)
[2020-07-20] MEDS: acetaZOLAMIDE TAB 250 MG TABLET PO (07:32)
[2020-07-20] MEDS: EZETIMIBE 10 MG TABLET PO (07:33)
[2020-07-20] MEDS: ATORVASTATIN 40 MG TABLET PO (07:33)
[2020-07-20] MEDS: PANTOPRAZOLE 40 MG TABLET PO (07:33)
[2020-07-20] MEDS: lisinopriL 10 MG TABLET PO (07:33)
--- NOTE | 2020-07-20 08:13 | PM.PNCARD ---
Progress Note: A&P Assessment and Plan (1) Heart block atrioventricular: Code(s): I44.30 - Unspecified atrioventricular block Status: Acute Assessment and Plan: Telemetry reviewed. She had a few non-conducted PAC's last night. Mild only rare episodes of AV block; no need for pacemaker at this time. Could be due to hypoxia or undiagnosed GUANACO. Received blood transfusions, on oxygen. Placed 30 day event monitor from my office. F/U with me in 3-4 weeks. Will need outpatient sleep study as lab is back open last week. (2) CHF exacerbation: Code(s): I50.9 - Heart failure, unspecified Status: Chronic Assessment and Plan: Acute on chronic diastolic heart failure. I reviewed echo which shows grade I diastolic dysfunction (E/e' 16) with moderate pulmonary hypertension with RVSP 56 mmHg. She appears to be euvolemic after diuresis. On Lasix 40 mg PO daily, has been receiving Lasix 40 mg IV prn daily for mild pulm edema on CXR. (3) Hypersomnia: Code(s): G47.10 - Hypersomnia, unspecified Status: Acute Assessment and Plan: Will need outpatient sleep study. (4) Hypertension: Qualifiers: Hypertension type: essential hypertension Qualified Code(s): I10 - Essential (primary) hypertension Code(s): I10 - Essential (primary) hypertension Status: Acute Assessment and Plan: Stable. (5) COPD (chronic obstructive pulmonary disease): Qualifiers: COPD type: unspecified COPD Qualified Code(s): J44.9 - Chronic obstructive pulmonary disease, unspecified Code(s): J44.9 - Chronic obstructive pulmonary disease, unspecified Status: Chronic (6) Hyperlipidemia: Qualifiers: Hyperlipidemia type: unspecified Qualified Code(s): E78.5 - Hyperlipidemia, unspecified Code(s): E78.5 - Hyperlipidemia, unspecified Status: Chronic (7) Anemia: Qualifiers: Anemia type: unspecified type Qualified Code(s): D64.9 - Anemia, unspecified Code(s): D64.9 - Anemia, unspecified Status: Chronic Assessment and Plan: Being followed by hospitalist and GI. Improving to Hb 8.2 yesterday. (8) Pulmonary hypertension assoc with unclear multi-factorial mechanisms: Code(s): I27.29 - Other secondary pulmonary hypertension Status: Acute Assessment and Plan: Secondary to COPD, likely GUANACO and diastolic dysfunction. Subjective Date/time seen: 07/20/20 08:13 Denies chest pain or sob, or dizziness. Exam Const: General: comfortable and no acute distress Neck: Neck: no JVD Carotids: no bruits Resp: Auscultation: clear to auscultation bilaterally, no crackles, no rales, no rhonchi and no wheezes Cardio: Rate: regular rate Rhythm: regular rhythm Heart sounds: no murmurs GI: GI Palp: Yes Soft to palpation and No Tenderness to palpation present (GI) Neuro: Speech: normal speech Extrem: Right lower extremity: no edema Left lower extremity: no edema Objective Data Vital Signs Vital Signs: Vital Signs - 24 hr 07/19/20 09:36 07/19/20 14:00 07/19/20 19:38 Temperature 97.7 F Pulse Rate 87 Respiratory Rate 12 Blood Pressure 102/52 L Pulse Oximetry 96 100 90 07/19/20 21:50 07/19/20 22:00 07/20/20 06:00 Temperature 97.1 F L 97.5 F L Pulse Rate 77 86 Respiratory Rate 18 18 Blood Pressure 121/70 108/51 L Pulse Oximetry 92 98 93 07/20/20 08:10 Temperature Pulse Rate Respiratory Rate Blood Pressure Pulse Oximetry 90 Intake/Output Intake/Output: Intake & Output 07/17/20 07/18/20 07/19/20 07/20/20 23:59 23:59 23:59 23:59 Intake Total 1670 1690 2400 450 Output Total 2850 3450 3850 1100 Balance -1180 -1760 -1450 -650 Meds/Results Medications: Active Medications Generic Name Dose Route Start Last Admin Trade Name Freq PRN Reason Stop Dose Admin Acetaminophen 650 mg 07/11/20 16:41 07/14/20 21:34 Tylenol Tablet PO 650 mg Q4H [place]
--- NOTE | 2020-07-20 09:59 | WPDGIPROGNO ---
Progress Note: A&P Additional Plan Patient alert and comfortable this morning. Offers no specific complaints. No bleeding described. Tolerating diet. Physical exam reveals patient to be alert. Vital signs stable. Lungs reveal few rhonchi. Heart without murmur. Abdomen is obese bowel sounds present soft nontender with no organomegaly. Labs reveal hemoglobin 8.7, hematocrit 30.3, MCV 71. Impression 1. Gastric ulcer. Iron deficiency anemia peers to be on this basis. Plans for iron replacement. Continue Protonix after discharge. Follow-up EGD in 2 months advised. 2. Congestive heart failure. Currently followed by cardiology service improving clinically. 3. Pulmonary nodules. she may have underlying pulmonary hypertension. Pulmonary workup now in progress. Disposition per their service. Subjective Date/time seen: 07/20/20 09:59 Objective Data Vital Signs Vital Signs: Vital Signs - 24 hr 07/19/20 14:00 07/19/20 19:38 07/19/20 21:50 Temperature 97.7 F Pulse Rate 87 Respiratory Rate 12 Blood Pressure 102/52 L Pulse Oximetry 100 90 92 07/19/20 22:00 07/20/20 06:00 07/20/20 08:10 Temperature 97.1 F L 97.5 F L Pulse Rate 77 86 Respiratory Rate 18 18 Blood Pressure 121/70 108/51 L Pulse Oximetry 98 93 90 Intake/Output Intake/Output: Intake & Output 07/17/20 07/18/20 07/19/20 07/20/20 23:59 23:59 23:59 23:59 Intake Total 1670 1690 2400 690 Output Total 2850 3450 3850 1500 Balance -1180 -1760 -1450 -810 Meds/Results Medications: Active Medications Generic Name Dose Route Start Last Admin Trade Name Freq PRN Reason Stop Dose Admin Acetaminophen 650 mg 07/11/20 16:41 07/14/20 21:34 Tylenol Tablet PO 650 mg Q4H PRN Administration Mild Pain (1-3) or Fever Hydrocodone Bitart/Acetaminophen 1 tab 07/11/20 16:41 [place] 5-325 Mg PO Q4H PRN Pain Rated 4-6 Acetazolamide 250 mg 07/18/20 09:00 07/20/20 07:32 Diamox Tab PO 250 mg QAM EMIR Administration Albuterol 2 puff 07/14/20 10:32 07/15/20 19:28 Proventil Hfa INHALATION 2 puff QIDRT PRN Administration Shortness Of Breath Or Wheezing Aspirin 81 mg 07/12/20 09:00 07/20/20 07:32 Aspirin Ec PO 81 mg DAILY EMIR Administration Atorvastatin Calcium 40 mg 07/12/20 09:00 07/20/20 07:33 Lipitor PO 40 mg DAILY EMIR Administration Budesonide/Formoterol Fumarate 2 puff 07/18/20 20:00 07/20/20 08:07 Symbicort 160-4.5 Mcg (*Sp) Inhaler INHALATION 2 puff Q12HRT EMIR Administration Dextrose 12.5 gm 07/11/20 22:54 Dextrose 50% Syringe IV PUSH PRN PRN Hypoglycemia Protocol Ezetimibe 10 mg 07/12/20 09:00 07/20/20 07:33 Zetia PO 10 mg DAILY EMIR Administration Ferrous Sulfate 324 mg 07/15/20 17:20 07/20/20 07:32 Ferrous Sulfate PO 324 mg BIDWM EMIR Administration Furosemide 40 mg 07/17/20 09:00 07/20/20 07:35 Lasix Tablet PO Not Given DAILY EMIR Glucagon 1 mg 07/11/20 22:54 Glucagon For Inj IM PRN PRN Hypoglycemia Protocol Glucose 15 gm 07/11/20 22:54 Glutose 15 PO PRN PRN Hypoglycemia Protocol Dextrose 1,000 mls @ 100 mls/hr 07/11/20 22:54 Dextrose 5% 1,000 Ml IVPB PRN PRN Hypoglycemia Protocol Insulin Aspart 2 - 5 units 07/12/20 08:00 07/20/20 07:34 Novolog SUB-Q Not Given TIDWM [facility] Protocol Lisinopril 10 mg 07/16/20 09:00 07/20/20 07:33 Prinivil PO 10 mg DAILY EMIR Administration Ondansetron HCl 4 mg 07/11/20 16:41 Zofran Inj IV PUSH Q4H PRN Nausea Pantoprazole Sodium 40 mg 07/13/20 09:00 07/20/20 07:33 Protonix PO 40 mg QAM EMIR Administration Tiotropium [place] 1 cap 07/18/20 11:15 07/20/20 08:07 Spiriva INHALATION 1 cap QAM EMIR Administration Radiology Results: ITS Impressions Chest CTA 07/12/20 09:36 IMPRESSION: 1. No evidence for pulmonary emboli
--- NOTE | 2020-07-20 10:58 | PCNWS ---
Weekly nutritional screen. Patient is tolerating current diet with adequate intake. No weight loss reported. No nutritional needs at this time.
[2020-07-20 11:35] LABS: Glucose Point of Care 128 (65-105)
--- NOTE | 2020-07-20 14:38 | PC.NURSE ---
Per Dr. Hopkins patient is cleared for discharge from cardiology stand point and recheck with his office in 3-[address] Contreras the patient is cleared for discharge from pulmonology stand point and to have the PET scan performed and to call his office to schedule an appointment for a follow up visit. Per Dr. Wilkerson the patient is cleared for discharge from GI stand point and to have a follow up EGD in 2 months and to call his office to schedule that down the road.
--- NOTE | 2020-07-20 14:59 | HOMEO2EVAL ---
Home Oxygen Evaluation RC: Home Oxygen (O2) Evaluation Start: 07/19/20 09:09 Freq: ONCE Status: Active Protocol: RPE Activity Type Activity Date Activity User E-Sign Co-Sign Detail Recorded Client Recorded Date Recorded By Document 07/20/20 14:30 KRM [id number] 07/20/20 14:59 KRM Document 07/20/20 14:32 KRM [id number] 07/20/20 14:59 KRM Document 07/20/20 14:35 KRM [id number] 07/20/20 14:59 KRM Document 07/20/20 14:36 KRM [id number] 07/20/20 14:59 KRM Document 07/20/20 14:38 KRM [id number] 07/20/20 14:59 KRM Document 07/20/20 14:42 KRM [id number] 07/20/20 14:59 KRM Document 07/20/20 14:50 KRM [id number] 07/20/20 14:59 KRM 07/20/20 07/20/20 07/20/20 14:30 14:32 14:35 Home O2 Evaluation Test Phase Resting Resting Resting Oxygen Delivery Room Air Nasal Cannula Nasal Cannula Oxygen Flow Rate (L/min) 2 3 Pulse Oximetry (90-100 %) 86 L 89 L 94 Pulse Rate (60-100 beats/min) 89 87 83 Activity Tolerance Ambulation Distance (feet) Home Oxygen Evaluation Comments Treatment Charges O2 Evaluation 07/20/20 07/20/20 07/20/20 14:36 14:38 14:42 Home O2 Evaluation Test Phase Exercise Exercise Exercise Oxygen Delivery Nasal Cannula Nasal Cannula Nasal Cannula Oxygen Flow Rate (L/min) 3 5 6 Pulse Oximetry (90-100 %) 85 L 86 L 89 L Pulse Rate (60-100 beats/min) 95 101 H 100 Activity Tolerance Fair Fair Fair Ambulation Distance (feet) 100 Home Oxygen Evaluation Comments 3lpm at rest, 6lpm with activity. When outside of home utilize 6lpm oxymizer. Treatment Charges 07/20/20 14:50 Home O2 Evaluation Test Phase Resting Oxygen Delivery Nasal Cannula Oxygen Flow Rate (L/min) 3 Pulse Oximetry (90-100 %) 92 Pulse Rate (60-100 beats/min) 85 Activity Tolerance Ambulation Distance (feet) Home Oxygen Evaluation Comments Treatment Charges
--- NOTE | 2020-07-20 15:00 | PCRCNOTE ---
Addendum entered by Greta Jean Baptiste, TRAFFIC [employer]PERVIS[employer] 07/20/20 15:10: Patient to utilize 6lpm oxymizer at all times with activity (not just outside of the home). Original Note: Home o2 evaluation done. Pt. requires 3lpm at rest and 6lpm with activity. Outside of home patient is to utilize 6lpm oxymizer to help conserve o2 tanks. Pt. already has o2 with [facility]. Faxed new order and notes to [phone]. Patient's family will be bringing an o2 tank from home for discharge.
--- NOTE | 2020-07-20 15:13 | HOMEO2EVAL ---
Home Oxygen Evaluation RC: Home Oxygen (O2) Evaluation Start: 07/19/20 09:09 Freq: ONCE Status: Active Protocol: RPE Activity Type Activity Date Activity User E-Sign Co-Sign Detail Recorded Client Recorded Date Recorded By Document 07/20/20 14:30 KRM [id number] 07/20/20 14:59 KRM Document 07/20/20 14:32 KRM [id number] 07/20/20 14:59 KRM Document 07/20/20 14:35 KRM [id number] 07/20/20 14:59 KRM Document 07/20/20 14:36 KRM [id number] 07/20/20 14:59 KRM Document 07/20/20 14:38 KRM [id number] 07/20/20 14:59 KRM Document 07/20/20 14:42 KRM [id number] 07/20/20 14:59 KRM Document 07/20/20 14:50 KRM [id number] 07/20/20 14:59 KRM 07/20/20 07/20/20 07/20/20 14:30 14:32 14:35 Home O2 Evaluation Test Phase Resting Resting Resting Oxygen Delivery Room Air Nasal Cannula Nasal Cannula Oxygen Flow Rate (L/min) 2 3 Pulse Oximetry (90-100 %) 86 L 89 L 94 Pulse Rate (60-100 beats/min) 89 87 83 Activity Tolerance Ambulation Distance (feet) Home Oxygen Evaluation Comments Treatment Charges O2 Evaluation 07/20/20 07/20/20 07/20/20 14:36 14:38 14:42 Home O2 Evaluation Test Phase Exercise Exercise Exercise Oxygen Delivery Nasal Cannula Nasal Cannula Nasal Cannula Oxygen Flow Rate (L/min) 3 5 6 Pulse Oximetry (90-100 %) 85 L 86 L 89 L Pulse Rate (60-100 beats/min) 95 101 H 100 Activity Tolerance Fair Fair Fair Ambulation Distance (feet) 100 Home Oxygen Evaluation Comments 3lpm nasal cannula at rest , 6lpm oxymizer with activity. Treatment Charges 07/20/20 14:50 Home O2 Evaluation Test Phase Resting Oxygen Delivery Nasal Cannula Oxygen Flow Rate (L/min) 3 Pulse Oximetry (90-100 %) 92 Pulse Rate (60-100 beats/min) 85 Activity Tolerance Ambulation Distance (feet) Home Oxygen Evaluation Comments Treatment Charges
== END 2020-07-20 15:50 | disposition home or self-care (01) | DRG 291 ==
LOC: ANHED 16:29 → ANH2MED 17:26
PROVIDERS: Internal Medicine; Internal Medicine Gastroenterology; Physician Assistant; Admitting Provider Hospitalist; Emergency Provider Emergency Medicine; PCP Internal Medicine Infectious Disease; Visit Provider Nurse Practitioner
PROC: 0DJ08ZZ Inspection of Upper Intestinal Tract, Via Natural or Artificial Opening Endoscopic (ICD-10-PCS; CPT 43235; principal; 2020-07-15 09:30)
DX: I11.0 Hypertensive heart disease with heart failure (principal); J96.21 Acute and chronic respiratory failure with hypoxia; K25.3 Acute gastric ulcer without hemorrhage or perforation; Z68.43 Body mass index [BMI] 50.0-59.9, adult; I50.33 Acute on chronic diastolic (congestive) heart failure; Z23 Encounter for immunization; K22.2 Esophageal obstruction; D50.9 Iron deficiency anemia, unspecified; K64.8 Other hemorrhoids; E66.01 Morbid (severe) obesity due to excess calories; I27.29 Other secondary pulmonary hypertension; J44.9 Chronic obstructive pulmonary disease, unspecified; E11.9 Type 2 diabetes mellitus without complications; E78.5 Hyperlipidemia, unspecified; I44.1 Atrioventricular block, second degree; R91.1 Solitary pulmonary nodule; G47.33 Obstructive sleep apnea (adult) (pediatric); Z90.49 Acquired absence of other specified parts of digestive tract; Z87.891 Personal history of nicotine dependence; Z99.81 Dependence on supplemental oxygen
CPT/HCPCS: 36415; 36600; 71045; 71046; 71275; 80048; 80053; 82375; 82607; 82728; 82805; 83036; 83050; 83540; 83550; 83735; 83880; 84100; 84443; 85025; 85027; 85055; 86140; 88305; 88342; 90471; 90686; 93005; 93306; 94002; 94003; 94618; 94640; 94762; 96374; 96376; 99285; A9270; G0008; G0378; J1756; J1815; J1940; J2704; J2930; J7120; Q9967

== ENCOUNTER 2020-08-11 06:04 | Outpatient (CLI) | payer MEDICARE, MEDICAID, SELFPAY ==
[2020-08-11 19:00] LABS: SARS-CoV-2 RNA PCR Negative
== END 2020-08-11 06:05 ==
LOC: ANHCOVIDDT 09-07 06:04
PROVIDERS: PCP Internal Medicine Infectious Disease; Visit Provider Internal Medicine Critical Care Medicine
DX: Z01.812 Encounter for preprocedural laboratory examination (principal); Z11.59 Encounter for screening for other viral diseases
CPT/HCPCS: 87635; C9803; U0003

== ENCOUNTER 2020-08-13 07:16 | Outpatient (CLI) | payer MEDICARE, MEDICAID, SELFPAY ==
--- NOTE | 2020-09-10 13:56 | WPDSLEEPSTUD ---
Sleep Study Date of Study: 08/13/20 Ordering Provider: Alvarado Mcfadden APRN Interpreting Physician: Atiya Boyd MD Sleep Study Type: Split Polysomnogram Height: 1.73 m Weight: 135.171 kg Body Mass Index: 45.3 [place]: 11 Reason for Sleep Study She has chronic respiratory failure on O2, (+) ApneaLink in the hospital Sleep History Maura Hill is a 60 year-old female with chronic respiratory failure on oxygen and congestive heart failure. She had an apnea link in the hospital that showed a high suspicion for obstructive sleep apnea. She has No sleep complaints mentioned on her sleep questionnaire. She occasionally awakens from sleep feeling short of breath. She denies snoring, heartburn symptoms at night, falling asleep involuntarily during the day including while driving, denies loss of muscle tone was strong emotion, denies feeling paralyzed on waking or falling asleep, denies vivid dreamlike scenes upon awakening or falling asleep. She denies nightmares, does not recall her dreams, does not have feelings of sadness depression or anxiety. She denies having muscular tension, denies noticing parts of her body jerking, denies kicking at night and denies crawling aching feelings in her legs at night. She denies leg pain at night and morning jaw pain. She does not grind her teeth. She does not have pain during the day. She occasionally awakens with pain at night, occasionally wakes up feeling stiff in the morning with sore achy muscles. She occasionally has trouble sleeping if she has a cold. She occasionally gasps for breath at night and occasionally has breathing problems at night observed by others. She occasionally sweats excessively at night, notices her heart pounding or beating irregularly at night and occasionally falls asleep during the day. Normal bedtime is midnight, takes a variable amount of time to fall asleep. She wakes frequently throughout the night to use the bathroom. While awake she stays awake for 2 hours and will watch television. She wakes in the morning at 11:00 a.m.. She does nap in the afternoon. A short nap is refreshing. She is drowsy in the morning for 2 hours or longer. [facility] Past Medical History Medical History (Updated 09/11/20 @ 14:05 by Atiya Boyd MD) Adrenal mass Anemia Chronic hypoxemic respiratory failure COPD (chronic obstructive pulmonary disease) Diabetes mellitus DM2 (diabetes mellitus, type 2) Hyperlipidemia Hypertension Lung nodule 11 mm Tobacco abuse 35 pack year, quit Aug 2019. Surgical History Surgical History H/O section x3 History of appendectomy Hx of cholecystectomy Family History Family History Grandparent Congestive heart failure Mother HTN (hypertension) with goal to be determined Hyperlipidemia Cancer Sibling Age: 53 HTN (hypertension) with goal to be determined Asthma Lupus Sibling Age: 50 Diabetes mellitus Heart disease Social History Social History Social History: The patient typically smoked 1 pack a cigarettes a day for 35 years. she said she stop smoking August of 2019. She has 3 children. She is unemployed at this time. She does not have a durable power collections attorney. But wants to be a full code. She became disabled many years ago 2007 when she injured her back. 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 Smoking packs per day: 3 Smoking cigarettes per day: 60.0 Years smoked: 20 Smoking pack-years: 60.00 Smoking status: Former smoker Tobacco type: cigarettes Smoking end date: 09/06/19 Alcohol intake: former Substance use: never Additional living arrangements comments: Lives with her sister. 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
[2020-09-14 08:38] VITALS: BMI 45.3
== END 2020-08-13 07:17 | disposition home or self-care (01) ==
LOC: ANHCSM 07:29
PROVIDERS: PCP Internal Medicine Infectious Disease; Visit Provider Nurse Practitioner Family
DX: G47.10 Hypersomnia, unspecified (principal)
CPT/HCPCS: 95811

== ENCOUNTER 2020-09-15 12:50 | Outpatient (CLI) | payer MEDICARE, MEDICAID, SELFPAY ==
[2020-09-15] VITALS (7 sets, daily range): O2SAT 86–95
--- NOTE | 2020-09-15 16:54 | HOMEO2EVAL ---
Home Oxygen Evaluation RC: Home Oxygen (O2) Evaluation Start: 09/15/20 16:46 Freq: Status: Active Protocol: RPE Activity Type Activity Date Activity User E-Sign Co-Sign Detail Recorded Client Recorded Date Recorded By Document 09/15/20 14:10 JULIUS [id number] 09/15/20 16:54 JULIUS Document 09/15/20 14:12 JULIUS [id number] 09/15/20 16:54 JULIUS Document 09/15/20 14:15 JULIUS [email or web address] 09/15/20 16:54 JULIUS Document 09/15/20 14:18 JULIUS [email or web address] 09/15/20 16:54 JULIUS Document 09/15/20 14:22 JULIUS [email or web address] 09/15/20 16:54 JULIUS Document 09/15/20 14:25 JULIUS [email or web address] 09/15/20 16:54 JULIUS Document 09/15/20 14:45 JULIUS [id number] 09/15/20 16:54 JULIUS 09/15/20 09/15/20 09/15/20 14:10 14:12 14:15 Home O2 Evaluation Test Phase Resting Resting Resting Oxygen Delivery Nasal Cannula Nasal Cannula Nasal Cannula Oxygen Flow Rate (L/min) 2 3 4 Pulse Oximetry (90-100 %) 87 L 87 L 90 Ambulation Distance (feet) Home Oxygen Evaluation Comments Treatment Charges O2 Evaluation 09/15/20 09/15/20 09/15/20 14:18 14:22 14:25 Home O2 Evaluation Test Phase Exercise Exercise Exercise Oxygen Delivery Oxymizer Oxymizer Oxymizer Oxygen Flow Rate (L/min) 4 4 5 Pulse Oximetry (90-100 %) 95 86 L 90 Ambulation Distance (feet) 250 Home Oxygen Evaluation Comments Treatment Charges 09/15/20 14:45 Home O2 Evaluation Test Phase Resting Oxygen Delivery Nasal Cannula Oxygen Flow Rate (L/min) 4 Pulse Oximetry (90-100 %) 92 Ambulation Distance (feet) Home Oxygen Evaluation Comments PT NEEDS 4L CANNULA RESTING AND 5L OXIMIZER WITH ACTIVITY Treatment Charges
--- NOTE | 2020-09-17 17:56 | WPDPFTINT ---
PFT Interpretation PFT Interpretation: DOS: 09/15/2020 REQUESTING: Alvarado Mcfadden APRN REASON FOR TESTING: COPD, hypoxia PULMONARY FUNCTION TESTS The patient completed all tests to the best of her ability with maximal coaching. Spirometry: FEV1 61%, moderately decreased. FVC 61%, moderately decreased. Normal FEV1%. no change with bronchodilator. Lung volumes: TLC 46%, severe restriction. RV 24%. No air trapping. Increased airway resistance. Diffusion: DLCO severely decreased 24%. Flow volume loop: Restrictive pattern. IMPRESSION: Severe restriction, increased airway resistance, severe diffusion impairment. No response to bronchodilator. Restriction can mask obstruction. Restriction with decreased diffusion can be seen in interstitial lung disease or pneumonitis. Restriction with low DLCO and obstruction can be seen in sarcoidosis, heart failure and asbestosis. Clinical correlation is recommended. Atiya Boyd MD
--- NOTE | 2020-09-17 18:16 | WPDSIXMINUTE ---
Six Minute Walk Six Minute Walk: DOS: 09/15/2020 HOME OXYGEN EVALUATION This patient requires 4 L of oxygen at rest and 5 L of oxygen with an Oxymizer with exertion.
== END 2020-09-15 12:51 | disposition home or self-care (01) ==
LOC: ANHPFT 12:51
PROVIDERS: PCP Internal Medicine Infectious Disease; Visit Provider Nurse Practitioner Family
DX: R09.02 Hypoxemia (principal); J44.9 Chronic obstructive pulmonary disease, unspecified; R94.2 Abnormal results of pulmonary function studies
CPT/HCPCS: 94060; 94375; 94618; 94726; 94729

== ENCOUNTER 2020-10-13 09:13 | Outpatient (CLI) | payer MEDICARE, MEDICAID, SELFPAY ==
--- NOTE | ~2020-10-13 | PE_ITS ---
EXAMINATION: PET skull to mid thigh DATE: 10/13/2020 11:14 INDICATION: Abnormal findings of the lungs. Right upper lobe nodule and mediastinal and bilateral hil ar lymphadenopathy on prior CT. TECHNIQUE: Blood glucose level was 133 mg/dL. 9.682 mCi of 18-fluorodeoxyglucose (18-FDG) was adminis tered i.v. Low dose computed tomography (CT) images were acquired from the base of the brain to the p roximal thighs for attenuation correction and anatomic localization. Positron emission tomography (PE T) images were acquired in the same distribution beginning 57 minutes after injection. Images includi ng fused PET/CT images were reconstructed in axial, coronal, and sagittal planes. Automated exposure control technique was employed. The dose-length product was 1116.15mGy-cm. COMPARISON: Chest CT dated 07/12/2020 FINDINGS: Head/neck: There is symmetric increased activity in the oral cavity, parotid glands, laryngeal muscles, ocular m uscles and surgical paraspinal muscles without CT correlate, likely physiologic. Goiter. No pathologi nicolas enlarged cervical lymphadenopathy or suspicious foci of increased FDG uptake in the visualized head or neck. Chest: Moderate emphysema. Diffuse groundglass opacities and septal line thickening throughout both lungs wh ich could represent atelectasis and/or mild pulmonary edema. 1.3 cm nodule with lobular margins in th e left upper lobe with macroscopic fat attenuation and no evident FDG uptake consistent with a hamart aamir. No other suspicious pulmonary nodules. Again seen is bilateral hilar and mediastinal lymphadenop athy appears without significant interval change although accurate measurement of the margins of the lymph nodes is limited by the absence of intravenous contrast. No abnormal FDG uptake associated with the lymph nodes. Cardiomegaly. Atherosclerotic coronary artery calcifications. No pericardial effusi on. Thoracic aorta is normal in caliber. Enlargement of the central pulmonary arteries consistent wit h pulmonary arterial hypertension. Abdomen/pelvis/proximal thighs: Physiologic renal accumulation and excretion of FDG activity in the kidneys, bladder and along portio ns of ureters. Normal degree and heterogenous pattern of increased uptake throughout the liver withou t radiologic correlate or dominant FDG avid lesion. The gallbladder is not visualized and likely surg ically absent. The pancreas, spleen and bilateral adrenal glands are normal. No a mild uptake scatter ed throughout the bowels with more prominent uptake at the rectum but without radiologic correlate, a lso likely physiologic. The uterus is unremarkable. No other abnormal foci of increased FDG uptake or pathologically enlarged lymphadenopathy in the abdomen, pelvis or proximal thighs. Musculoskeletal: Mild lumbar levocurvature with severe spondylosis. Lesser degenerative skeletal changes in the remain iza of the visualized axial and appendicular skeleton. No suspicious lytic, blastic or FDG avid bone lesions. IMPRESSION: 1. 1.3 cm right upper lobe nodule without FDG uptake in with macroscopic fat attenuation on CT images consistent with a benign hamartoma. 2. Likely reactive mediastinal and bilateral hilar lymphadenopathy without evident FDG uptake to sugg est lymphoma or metastatic disease. 3. Moderate emphysema. 4. Diffuse groundglass opacities and smooth septal line thickening which could represent atelectasis or mild pulmonary edema. 5. Cardiomegaly. 6. Enlargement of the central pulmonary arteries consistent with pulmonary arterial hypertension. Reviewed, dictated and finalized at location B. IRATORY PRACTITIONER IMPRESSION: 1. 1.3 cm right upper lobe nodule without FDG uptake in with macroscopic fat at tenuation on CT images consistent with a benign hamartoma. 2.
[2020-10-13 09:52] LABS: Glucose Point of Care 133 (65-105)
== END 2020-10-13 09:14 | disposition home or self-care (01) ==
PROVIDERS: PCP Internal Medicine Infectious Disease; Visit Provider Nurse Practitioner Family
DX: R91.1 Solitary pulmonary nodule (principal); R59.0 Localized enlarged lymph nodes; J43.9 Emphysema, unspecified; R91.8 Other nonspecific abnormal finding of lung field; I51.7 Cardiomegaly
CPT/HCPCS: 78815; A9552

== ENCOUNTER 2021-02-05 07:49 | Inpatient (IN) | payer MEDICARE, MEDICAID, SELFPAY ==
[2021-02-05] VITALS (17 sets, daily range): BP systolic 114–176; BP diastolic 57–99; PULSE 65–93; RESP 12–26; TEMP 35.7–36.8; O2SAT 90–94; BMI 49.0
--- NOTE | ~2021-02-05 | XR_ITS ---
EXAMINATION: XR chest 1V portable EXAM DATE: 02/06/2021 05:45 INDICATION: CHF TECHNIQUE: Portable AP frontal chest x-ray was obtained. Comparison is made to prior examination from 02/05/2021. FINDINGS: Diffuse bilateral indistinct reticulation, airspace disease most consistent with pulmonary edema, relative sparing of the upper lung zones. Pneumonia not excludable. There is cardiomegaly and pulmonary vascular congestion. No sizable pleural effusion. No pneumothorax. There are no osseous abn ormalities identified. IMPRESSION: 1. Diffuse bilateral airspace disease, stable or with mild progression. Edema more likely than pneu monia. 2. Cardiomegaly, pulmonary vascular congestion. Reviewed, dictated and finalized at location A. IMPRESSION: 1. Diffuse bilateral airspace disease, stable or with mild progression. Edema more likely than pneumonia. 2. Cardiomegaly, pulmonary vascular congestion.
--- NOTE | ~2021-02-05 | XR_ITS ---
EXAMINATION: XR chest 1V portable DATE: 02/05/2021 08:46 INDICATION: Shortness of breath. TECHNIQUE: A single frontal view of the chest was obtained. COMPARISON: Chest single view 07/18/2020, PET CT 10/13/2020 FINDINGS: There is a chronic nodule in right upper lobe that contains fat on the prior CTs, consisten t with a hamartoma. There are airspace opacities in the perihilar regions. There is a diffuse interst itial pattern in the lungs. There is a small left pleural effusion. Cardiomegaly is noted. There is c hronic mediastinal and bilateral hilar lymphadenopathy. IMPRESSION: 1. Worsened diffuse lung disease, likely moderate pulmonary edema. 2. Small left pleural effusion. 3. Cardiomegaly. 4. Chronic mediastinal and bilateral hilar lymphadenopathy, likely reactive. Reviewed, dictated and finalized at location A.
--- NOTE | ~2021-02-05 | CT_ITS ---
EXAMINATION: CTA chest PE protocol DATE: 02/05/2021 09:51 INDICATION: Shortness of breath. TECHNIQUE: Computed tomography angiography (CTA) of the chest was performed with 100 mL Omnipaque-350 intravenous contrast timed to evaluate the pulmonary arteries. Coronal maximum intensity projection 3D-reconstructions were created by the technologist. Automated exposure control and iterative reconst ruction technique were employed. The dose-length product was 909.46 mGy-cm. COMPARISON: Chest CT 07/12/2020 FINDINGS: There is mild emphysema. There is a chronic 12 mm nodule in right upper lobe containing fat , consistent with a hamartoma. There is diffuse smooth septal thickening in the lungs. There are patc hy groundglass opacities in all lobes with a lower lobe predominance. There are mild airspace opaciti es in basilar right lower lobe. There are small pleural effusions. Cardiomegaly is noted. There are c oronary artery calcifications. No pericardial effusion. The central pulmonary arteries are enlarged, consistent with coronary arterial hypertension. There is no pulmonary embolus. There is chronic media stinal and bilateral hilar lymphadenopathy. For example, a 2.6 x 2.1 cm right hilar lymph node measur ed 2.9 x 1.9 cm on 09/08/2019. There are thyroid nodules measuring up to 11 mm, likely not clinically significant. There is mild thoracic spondylosis. IMPRESSION: 1. No pulmonary embolus. 2. Diffuse lung disease, consistent moderate pulmonary edema. 3. Small pleural effusions. 4. Mild emphysema. 5. Cardiomegaly. 6. Chronic mediastinal and bilateral hilar lymphadenopathy, likely reactive. Reviewed, dictated and finalized at location A.
--- NOTE | ~2021-02-05 | XR_ITS ---
EXAMINATION: XR chest 1V portable EXAM DATE: 02/08/2021 05:35 INDICATION: Respiratory failure. TECHNIQUE: Portable AP frontal chest x-ray was obtained. Comparison is made to prior examination from 02/06/2021. FINDINGS: Cardiomediastinal silhouette is normal. There is diffuse abnormal reticulation, bilateral p neumonia and/or edema. This does not appear significantly changed. The heart size has been normalizi ng over the last several days. There is no pneumothorax suspected. There are no pleural effusions. Th ere are mild bony degenerative changes. IMPRESSION: 1. Diffuse edema or pneumonia unchanged. 2. Normalizing heart size. Reviewed, dictated and finalized at location A.
--- NOTE | 2021-02-05 08:05 | ECG_ITS ---
Measurements Intervals [place] Rate: 84 P: 125 AK: 168 QRS: 188 QRSD: 94 T: 100 QT: 389 QTc: 460 Interpretive Statements SINUS RHYTHM LIMB LEAD REVERSAL BASELINE ARTIFACT- II, III, AVR, AVL, AVF, V1 BORDERLINE ECG Electronically Signed On 02-05-2021 8:07:58 CDT by Jett Hopkins D.O.
--- NOTE | 2021-02-05 08:23 | ED.SOB ---
HPI - SOB/Dyspnea General Chief Complaint: Shortness of Breath/Dyspnea Stated Complaint: SOB Time Seen by Provider: 02/05/21 07:49 Source: patient Mode of arrival: ambulatory Limitations: no limitations History of Present Illness HPI Narrative: Patient is 61 yo female with CHF, COPD on 4L NC chronically who presents from home for evaluation of shortness of breath. She developed a cough and shortness of breath on Monday. She also reports having substernal chest pain radiating to her left arm on Monday. She states she was started on azithromycin on Monday. Her chest pain has resolved but she has continued to have progressive worsening of her shortness of breath. She reports she had severe shortness of breath this morning going to the bathroom so she called EMS. EMS reports patient was 75% on her 4 LC NC so she was placed on 15 L Nonrebreather. She denies fever, chills, nausea, vomiting, diarrhea or worsening edema. She denies sick contacts and she has not received the COVID vaccine. Related Data Home Medications Medication Instructions Recorded Confirmed aspirin [Aspir-81] 81 mg PO DAILY 09/08/19 02/05/21 atorvastatin 40 mg PO DAILY 09/08/19 02/05/21 ezetimibe 10 mg PO DAILY 09/08/19 02/05/21 metformin 500 mg PO DAILY 09/08/19 02/05/21 polysaccharide iron complex 150 mg PO BID 07/11/20 02/05/21 [Poly-Iron] amlodipine 10 mg PO DAILY 02/05/21 02/05/21 furosemide 20 mg PO DAILY PRN 02/05/21 02/05/21 glimepiride 2 mg PO DAILY 02/05/21 02/05/21 hydrochlorothiazide 12.5 mg PO EVERY OTHER DAY 02/05/21 02/05/21 Allergies Allergy/AdvReac Type Severity Reaction Status Date / Time Penicillins Allergy Hives Verified 02/05/21 08:16 Sulfa (Sulfonamide Allergy unknown Verified 02/05/21 08:16 Antibiotics) Review of Systems Review of Systems: All systems reviewed & are unremarkable except as noted in HPI and below Constitutional: Constitutional: Denies chills and Denies fever(s) ENT: Denies sore throat Cardiovascular: Cardiovascular: Reports chest pain and Denies rapid heart rate Respiratory: Respiratory: Reports chest congestion, Reports cough and Reports dyspnea Gastrointestinal: Gastrointestinal: Denies abdominal pain, Denies diarrhea, Denies nausea and Denies vomiting PMFSH Past Medical History Medical History (Updated 02/05/21 @ 17:45 by Deisy Moses MD) Adrenal mass Anemia Chronic hypoxemic respiratory failure COPD (chronic obstructive pulmonary disease) Diabetes mellitus DM2 (diabetes mellitus, type 2) Hyperlipidemia Hypertension Lung nodule 11 mm Tobacco abuse 35 pack year, quit Aug 2019. Surgical History Surgical History (Updated 02/05/21 @ 13:46 by Sarah London NP) H/O section x3 H/O colonoscopy with polypectomy History of appendectomy Hx of cholecystectomy Family History Family History Grandparent Congestive heart failure Mother HTN (hypertension) with goal to be determined Hyperlipidemia Cancer Sibling Age: 54 HTN (hypertension) with goal to be determined Asthma Lupus Sibling Age: 51 Diabetes mellitus Heart disease Social History Social History Social History: The patient typically smoked 1 pack a cigarettes a day for 35 years. she said she stop smoking August of 2019. She has 3 children. She is unemployed at this time. She does not have a durable power state's attorney. But wants to be a full code. She became disabled many years ago 2007 when she injured her back. 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 Smoking packs per day: 0.5 Smoking cigarettes per day: 10.0 Years smoked: 25 Smoking pack-years: 12.50 Smoking status: Former smoker Tobacco type: cigarettes Smoking end date: 09/06/20 Alcohol intake: former Substance use: never Additional saida
[2021-02-05 08:37] LABS: Alveolar/Arterial O2 Gradient 261.9 mmHg; Base Excess ABG 3.2 mEq/l (+/-2.0); Carboxyhemoglobin 1.8 % THb (0-2.0); Fractional Inspired Oxygen 50 %; HCO3 ABG 27.8 mEq/l (22.0-26.0); Methemoglobin ABG 0.6 %THb (0-1.5); Oxyhemoglobin 77.3 % THb (90.0-100.0); PCO2 ABG 42.8 mmHg (35.0-45.0); PO2 FiO2 Ratio Arterial Blood 0.93 %; Reduced Hemoglobin 20.3 %THb (0-5.0); pH ABG 7.431 (7.350-7.450)
[2021-02-05 08:40] LABS: PO2 ABG 46.5 mmHg (80.0-100.0)
[2021-02-05 08:41] LABS: Device NASAL CANNULA; Modified Allen's Test Pass; Oxygen Saturation ABG 83.6 % (95.0-100.0); Site Drawn LEFT RADIAL; Total Hemoglobin 7.3 g/dL (12.0-18.0)
[2021-02-05 08:58] LABS: Basophils Percent Auto 0.3 % (0.2-1.2); Eosinophils Absolute Auto 0.1 K/mm3 (0-0.3); Eosinophils Percent Auto 0.4 % (0-4.4); Hematocrit 23.8 % (37.0-47.0); Immature Granulocyte Absolute 0.04 K/mm3 (0.00-0.031); Immature Granulocyte Percent A 0.3 % (0-0.5); Lymphocytes Absolute Auto 1.33 K/mm3 (0.9-3.2); Mean Corpuscular HGB Conc 28.6 g/dl (32-36); Mean Corpuscular Hemoglobin 21.3 pg (26-34); Mean Corpuscular Volume 74.4 fl (80-100); Mean Platelet Volume 10.7 fl (7.4-10.4); Monocytes Absolute Auto 0.5 K/mm3 (0.1-0.6); Monocytes Percent Auto 3.7 % (2.6-8.5); Neutrophils Absolute Auto 10.2 K/mm3 (1.3-6.7); Neutrophils Percent Auto 84.3 % (45.5-73.1); Nucleated Red Blood Cells Perc 0.2 % (0.0-0.2); Platelet Count Result 298 k/mm3 (150-375); Red Cell Distribution Width 18.8 % (11.5-14.5); White Blood Count 12.1 K/mm3 (4.5-10.0)
[2021-02-05] MEDS: FUROSEMIDE INJ 40 MG/4 ML VIAL IV PUSH ×2 (09:05→16:16)
[2021-02-05 09:08] LABS: Hemoglobin 6.8 g/dL (12.0-15.0)
[2021-02-05 09:09] LABS: Anion Gap 5 mmol/L (8-16); Blood Urea Nitrogen 13 mg/dL (7-17); Calcium 9.2 mg/dL (8.4-10.2); Carbon Dioxide 30 mmol/L (22-30); Chloride 107 mmol/L (98-107); Estimated CRCL calculation 86 ml/min; Estimated Glomerular Filt Rate > 60; Glucose 153 mg/dL (65-105); Platelet Estimate Adequate (Adequate); Potassium 3.5 mmol/L (3.4-5.0); Sodium 142 mmol/L (137-145)
[2021-02-05 09:10] LABS: Hypochromasia 2+ (NORMAL); INR 1.2; Lactic Acid Reflex 0.7 mmol/L (0.7-2.1); Poikilocytosis 1+ (NORMAL); Prothrombin Time 15.8 Seconds (11.1-14.7)
[2021-02-05 09:11] LABS: Anisocytosis 1+ (NORMAL); Ovalocytes 1+ (NORMAL); Partial Thromboplastin Time 29.2 SECONDS (22.3-36.8); Target Cells 1+ (NORMAL)
[2021-02-05 09:13] LABS: CRP 1.5 mg/dL (<1.0); D Dimer 1.02 ug/mL (<0.48)
[2021-02-05 09:21] LABS: NT Pro B Type Natriuretic Pept 771 PG/ML (5-100); Troponin I < 0.012 ng/mL (0.000-0.034)
[2021-02-05] MEDS: PANTOPRAZOLE SODIUM IV 40 MG VIAL IV PUSH ×2 (11:17→19:58)
--- NOTE | 2021-02-05 11:39 | ADMGEN ---
This patient, Maura Hill, was admitted to Intensive Care Unit-4. Patient/family oriented to hospital policies and general routines including ID bracelet, bed and alarms, visiting hours, pain management, procedures, bathroom and other care routines, personal items, smoking policy, room service/diet, and visiting hours. Information on how to activate the Rapid Response Team has been discussed. Patient/Family are encouraged to report perceived risks to care and to ask questions if they do not understand what they are told or what they should do.
--- NOTE | 2021-02-05 12:06 | WPDCNINT ---
Assessment and Plan Assessment and plan (1) Acute and chronic respiratory failure: Code(s): J96.20 - Acute and chronic respiratory failure, unspecified whether with hypoxia or hypercapnia Status: Acute Assessment and Plan: Acute respiratory failure secondary to COPD and CHF exacerbations Patient on 4 L nasal cannula at baseline, mild GUANACO, pulmonary hypertension and has severe restrictive lung disease likely secondary to morbid obesity CTA Chest IMPRESSION: 1. No pulmonary embolus. 2. Diffuse lung disease, consistent moderate pulmonary edema. 3. Small pleural effusions. 4. Mild emphysema. 5. Cardiomegaly. 6. Chronic mediastinal and bilateral hilar lymphadenopathy, likely reactive PFT 09/18 IMPRESSION: Severe restriction, increased airway resistance, severe diffusion impairment. No response to bronchodilator. Restriction can mask obstruction. Restriction with decreased diffusion can be seen in interstitial lung disease or pneumonitis. ABG reviewed. Patient not in any distress and saturating well on 7 L nasal cannula Lasix 40 mg IV given in ER. Will repeat again after transfusion Will steroids as patient is not wheezing DuoNebs p.r.n. Cultures done but does not appear to be infection with no consolidation on CT and normal lactic acid level. Will hold antibiotics at this time. Check procalcitonin (2) Suspected COVID-19 virus infection: Code(s): Z20.822 - Contact with and (suspected) exposure to COVID-19 Status: Acute Assessment and Plan: COVID-19 suspected. SARS-CoV-2 PCR sent and results pending Patient is in Airborne, Droplet and Contact Isolation (3) Congestive heart failure: Qualifiers: Heart failure type: other Qualified Code(s): I50.9 - Heart failure, unspecified Code(s): I50.9 - Heart failure, unspecified Status: Acute (4) Pulmonary hypertension assoc with unclear multi-factorial mechanisms: Code(s): I27.29 - Other secondary pulmonary hypertension Status: Acute (5) Obstructive sleep apnea: Code(s): G47.33 - Obstructive sleep apnea (adult) (pediatric) Status: Acute Assessment and Plan: Patient does not wear BiPAP or CPAP at home She wears oxygen by nasal cannula (6) COPD (chronic obstructive pulmonary disease): Qualifiers: COPD type: unspecified COPD Qualified Code(s): J44.9 - Chronic obstructive pulmonary disease, unspecified Code(s): J44.9 - Chronic obstructive pulmonary disease, unspecified Status: Chronic Assessment and Plan: See above (7) DM2 (diabetes mellitus, type 2): Code(s): E11.9 - Type 2 diabetes mellitus without complications Status: Chronic Assessment and Plan: Sliding scale insulin (8) Anemia: Qualifiers: Anemia type: unspecified type Qualified Code(s): D64.9 - Anemia, unspecified Code(s): D64.9 - Anemia, unspecified Status: Chronic Assessment and Plan: Patient has history of gastric ulcer. Patient was seen by gastroenterology 06/2020 and colonoscopy showed internal hemorrhoids and EGD showed gastric ulcer at that time. At the time of discharge, recommendation was made to continue PPI and follow up as an outpatient for EGD. Patient did not have any follow-up as an outpatient Patient is on p.o. iron and PPI p.o. at home Start IV PPI q.12 hours Monitor hemoglobin serial Patient is being transfused with 1 unit packed red cells. Additional transfusion as needed Consult GI Patient is requesting food at this time and denies any obvious bleeding. Will start clear liquid diet until seen by GI (9) Chest pain: Code(s): R07.9 - Chest pain, unspecified Status: Acute Assessment and Plan: Atypical from history EKG unremarkable in the ER Patient now chest pain-free Serial troponin Continue statin Will have to hold aspirin due to suspected GI bleed (10) Hyperlipidemia: Qualifiers: Hyperl
[2021-02-05] MEDS: SODIUM CHLORIDE 0.9% IV 250 ML 30 ML IV CONT (12:55)
--- NOTE | 2021-02-05 13:22 | PM.IMHP ---
H&P: HPI History of Present Illness Date/Time: 02/05/21 13:22 this is a 61 who I had the pleasure of meeting this patient on 09/08/2019. The patient was hypoxic at that time. She has a history of COPD and CHF. Was eventually weaned off and was on nasal cannula. The patient did a home evaluation and was requiring 2 L per nasal cannula to go home at that time. Patient has been seeing Atiya Boyd as her orthotic/prosthetic practitioner. The patient was found to have pulmonary nodules but has had a PET scan since then which was found to be benign. Where she had congestive heart failure exacerbation increased oxygen requirement. On discharge 07/20/2020 the patient was re-evaluated for oxygen and her need for 3 L at rest and 6 with activity. The patient eventually was evaluated for sleep apnea but still is awaiting her CPAP machine. The patient does have chronic anemia and her hemoglobin last year was in the 8 range. She did have an EGD showing acute gastric ulcer and esophageal ring status post dilatation colonoscopy showing internal hemorrhoids. Anemia could be related to gastric ulcer. Required oral iron. The patient had a PFT on 09/17/2020 which was read as Severe restriction, increased airway resistance, severe diffusion impairment. No response to bronchodilator. Restriction can mask obstruction. Restriction with decreased diffusion can be seen in interstitial lung disease or pneumonitis. Restriction with low DLCO and obstruction can be seen in sarcoidosis, heart failure and asbestosis. Clinical correlation is recommended. Today the patient came in from home with shortness of breath. The patient had chronically been on 4 L per nasal cannula. The patient also was complaining of having some chest pain radiating to her left arm on Monday. The patient had been started on azithromycin this past 2 state has completed the whole course. The chest pain has resolved. The patient has had severe shortness of breath. She tells me that she does lay on her belly with the pillow but does not have orthopnea. The patient reports that her oxygen levels been 75% on a 4 L and she was placed on 50 L per nasal cannula. The patient is now on 6 L per nasal cannula. The patient was swabbed for COVID-19 is been placed in isolation. Her aspirin was placed on hold as her hemoglobin is 6.8. Hematocrit 23.8. Her baseline hemoglobin is somewhere between 7 and 8.7. The patient has had a colonoscopy and endoscopy in the past. She has had polyps removed in the past. The patient denies any blood in her stool or any vomiting at all. 1 unit packed red blood cells has been ordered. Home [facility] [employer] has been consulted. CTa today was read as1. No pulmonary embolus. 2. Diffuse lung disease, consistent moderate pulmonary edema. 3. Small pleural effusions. 4. Mild emphysema. 5. Cardiomegaly. 6. Chronic mediastinal and bilateral hilar lymphadenopathy, likely reactive. Chest x-ray was read as 1. Worsened diffuse lung disease, likely moderate pulmonary edema. 2. Small left pleural effusion. 3. Cardiomegaly. 4. Chronic mediastinal and bilateral hilar lymphadenopathy, likely reactive. Patient was given IV Lasix and pantoprazole. The patient is admitted to inpatient ICU on the date of service of 02/05/2021. Chief Complaint: sob Review of Systems Review of Systems: All systems reviewed & are unremarkable except as noted in HPI and below Constitutional: Constitutional: Reports as per HPI and Reports no additional constitutional complaints Eyes: Eyes: Reports as per HPI and Reports no additional eye complaints ENT: Reports system reviewed and no additional complaints, except as documented and Reports Normal hearing present Cardiovascular: Cardiovascular: Reports no additional cardiovascular complaints Respiratory: Respiratory: Reports no additional respiratory complaints and Reports no additional respiratory complaints Gastrointestinal: Gastrointestinal: Reports as per HPI and Reports no additi
[2021-02-05 13:38] LABS: Glucose Point of Care 129 (65-105)
[2021-02-05 16:22] LABS: Hematocrit 26.3 % (37.0-47.0); Hemoglobin 7.7 g/dL (12.0-15.0)
[2021-02-05 16:36] LABS: Glucose Point of Care 122 (65-105)
[2021-02-05 16:46] LABS: Troponin I < 0.012 ng/mL (0.000-0.034)
[2021-02-05] MEDS: POLYSACCHARIDE IRON COMPLEX 150 MG CAPSULE PO (17:28)
[2021-02-05 18:59] LABS: Magnesium 1.7 mg/dL (1.6-2.3); Potassium 3.6 mmol/L (3.4-5.0)
[2021-02-05 19:49] LABS: SARS-CoV-2 RNA PCR Negative
[2021-02-05] MEDS: BUDESONIDE/FORMOTEROL (*SP) 160-4.5 MCG 6 GM INH 2 PUFF INHALATION (20:31)
[2021-02-05 22:47] LABS: Hematocrit 25.5 % (37.0-47.0); Hemoglobin 7.5 g/dL (12.0-15.0)
[2021-02-05 23:04] LABS: Magnesium 1.6 mg/dL (1.6-2.3); Potassium 3.1 mmol/L (3.4-5.0)
[2021-02-05 23:23] LABS: Troponin I < 0.012 ng/mL (0.000-0.034)
[2021-02-05 23:32] LABS: Glucose Point of Care 107 (65-105)
[2021-02-06] VITALS (14 sets, daily range): BP systolic 122–136; BP diastolic 58–82; PULSE 68–97; RESP 16–25; TEMP 36.4–37.1; O2SAT 90–97
--- NOTE | 2021-02-06 | ECHO_ITS ---
Patient Info Name: Maura Hill Age: 61 years : 1960 Gender: Female Ht: 66 in Wt: 298 lbs BSA: 2.59 m2 HR: 77 bpm BP: 125 / 63 mmHg Heart Rhythm: Sinus Rhythm Technical Quality: Good Exam Date: 02/06/2021 9:21 AM Exam Location: [facility] Pulmonary Exam Room: ICU4 Patient Status: Inpatient Admit Date: 02/05/2021 Staff Ordering Physician: Sofia Doss MD Co Supervisor [employer] Land[employer]: Claudette Alfaro RDCS Attending Provider: Sofia Doss MD Referring Physician: Romario CUELLO; Exam Type: CA echo doppler color flow Study Info Indications - COPD CHF CARDIOMEGALY Complete two-dimensional, color flow and Doppler transthoracic echocardiogram is performed. Summary 1. Complete two-dimensional, color flow and Doppler transthoracic echocardiogram is performed. 2. Left ventricular systolic function is normal, estimated at 65-70%. 3. There is mildly increased left ventricular wall thickness. 4. The left ventricular diastolic function is grade I diastolic dysfunction. 5. Left atrial chamber dimension is moderately enlarged. 6. Right atrial chamber dimension is severely enlarged. 7. There is mild aortic valve stenosis with a peak velocity of 280 cm/s, mean gradient of 12 mmHg, and aortic valve area of 1.9 cm2. 8. There is moderate tricuspid valve regurgitation. 9. Severe pulmonary hypertension, estimated pulmonary arterial systolic pressure is 61 mmHg. Left Ventricle Left ventricular chamber dimension is normal. Left ventricular systolic function is normal, estimated at 65-70%. There is mildly increased left ventricular wall thickness. The left ventricular diastolic function is grade I diastolic dysfunction. Right Ventricle Right ventricular chamber dimension is normal. Right ventricular systolic function is normal. Left Atria Left atrial chamber dimension is moderately enlarged. Right Atria Right atrial chamber dimension is severely enlarged. Aortic Valve The aortic valve is probable trileaflet. There is mild aortic valve sclerosis. There is mild aortic valve stenosis with a peak velocity of 280 cm/s, mean gradient of 12 mmHg, and aortic valve area of 1.9 cm2. Pulmonic Valve The pulmonic valve is not well visualized. There is trace pulmonic regurgitation. Mitral Valve The mitral valve has thickened leaflets. There is trace mitral valve regurgitation. The mitral valve annulus is severely calcified. Tricuspid Valve The tricuspid valve leaflets are normal. There is moderate tricuspid valve regurgitation. Severe pulmonary hypertension, estimated pulmonary arterial systolic pressure is 61 mmHg. Pericardium/Pleural The pericardium appears normal. There is trivial pericardial effusion. Inferior Vena Cava Normal inferior vena cava with >50% collapse upon inspiration consistent with normal right atrial pressure, 5 mmHg. Aorta The aortic root size at the sinus of Valsalva is normal. There is mild aortic atherosclerosis. Left Ventricular Outflow Tract Name Value Normal LVOT 2D LVOT Diameter 2.0 cm LVOT Doppler LVOT Peak Gradient 9 mmHg LVOT Mean Gra
[2021-02-06] MEDS: POTASSIUM CHLORIDE 20 MEQ TABLET 40 MEQ PO ×2 (01:26→08:47)
[2021-02-06 04:29] LABS: Basophils Percent Auto 0.3 % (0.2-1.2); Eosinophils Absolute Auto 0.1 K/mm3 (0-0.3); Eosinophils Percent Auto 0.8 % (0-4.4); Hematocrit 24.9 % (37.0-47.0); Hemoglobin 7.5 g/dL (12.0-15.0); Immature Granulocyte Absolute 0.05 K/mm3 (0.00-0.031); Immature Granulocyte Percent A 0.4 % (0-0.5); Lymphocytes Absolute Auto 1.41 K/mm3 (0.9-3.2); Lymphocytes Percent Auto 10.4 % (18.3-44.2); Mean Corpuscular HGB Conc 30.1 g/dl (32-36); Mean Corpuscular Hemoglobin 21.9 pg (26-34); Mean Corpuscular Volume 72.6 fl (80-100); Mean Platelet Volume 10.3 fl (7.4-10.4); Monocytes Absolute Auto 0.6 K/mm3 (0.1-0.6); Monocytes Percent Auto 4.1 % (2.6-8.5); Neutrophils Absolute Auto 11.4 K/mm3 (1.3-6.7); Platelet Count Result 282 k/mm3 (150-375); Red Blood Count 3.43 M/mm3 (4.2-5.4); Red Cell Distribution Width 18.5 % (11.5-14.5); White Blood Count 13.6 K/mm3 (4.5-10.0)
[2021-02-06 04:43] LABS: Alanine Aminotransferase 7 U/L (4-35); Albumin Level 3.8 g/dL (3.5-5.1); Alkaline Phosphatase 127 U/L (38-126); Anion Gap 5 mmol/L (8-16); Aspartate Amino Transferase 27 U/L (14-36); Bilirubin,Total 0.5 mg/dL (0.2-1.3); Blood Urea Nitrogen 10 mg/dL (7-17); Carbon Dioxide 32 mmol/L (22-30); Chloride 101 mmol/L (98-107); Estimated CRCL calculation 90 ml/min; Estimated Glomerular Filt Rate > 60; Glucose 127 mg/dL (65-105); Hemoglobin A1C 6.5 % (<5.7); Magnesium 1.7 mg/dL (1.6-2.3); Potassium 3.4 mmol/L (3.4-5.0); Sodium 138 mmol/L (137-145)
--- NOTE | 2021-02-06 08:22 | WPDINTPN ---
Progress Note: A&P Assessment and Plan (1) Acute and chronic respiratory failure: Code(s): J96.20 - Acute and chronic respiratory failure, unspecified whether with hypoxia or hypercapnia Status: Acute Assessment and Plan: Acute respiratory failure secondary to COPD and CHF exacerbations Patient on 4 L nasal cannula at baseline, mild GUANACO, pulmonary hypertension and has severe restrictive lung disease likely secondary to morbid obesity CTA Chest IMPRESSION: 1. No pulmonary embolus. 2. Diffuse lung disease, consistent moderate pulmonary edema. 3. Small pleural effusions. 4. Mild emphysema. 5. Cardiomegaly. 6. Chronic mediastinal and bilateral hilar lymphadenopathy, likely reactive PFT 09/18 IMPRESSION: Severe restriction, increased airway resistance, severe diffusion impairment. No response to bronchodilator. Restriction can mask obstruction. Restriction with decreased diffusion can be seen in interstitial lung disease or pneumonitis. Clinically improved decrease oxygen requirement. Chest x-ray shows persistent edema Continue Lasix 40 mg IV q.12 hours Not on steroids as patient is not wheezing DuoNebs p.r.n. Cultures done but does not appear to be infection with no consolidation on CT and normal lactic acid level. Will hold antibiotics at this time. Check procalcitonin (2) Suspected COVID-19 virus infection: Code(s): Z20.822 - Contact with and (suspected) exposure to COVID-19 Status: Acute Assessment and Plan: COVID-19 was suspected. SARS-CoV-2 PCR negative (3) Congestive heart failure: Code(s): I50.9 - Heart failure, unspecified Status: Acute Assessment and Plan: Continue Lasix (4) Pulmonary hypertension assoc with unclear multi-factorial mechanisms: Code(s): I27.29 - Other secondary pulmonary hypertension Status: Acute (5) Obstructive sleep apnea: Code(s): G47.33 - Obstructive sleep apnea (adult) (pediatric) Status: Acute Assessment and Plan: Patient does not wear BiPAP or CPAP at home She wears oxygen by nasal cannula (6) COPD (chronic obstructive pulmonary disease): Qualifiers: COPD type: unspecified COPD Qualified Code(s): J44.9 - Chronic obstructive pulmonary disease, unspecified Code(s): J44.9 - Chronic obstructive pulmonary disease, unspecified Status: Chronic Assessment and Plan: See above (7) DM2 (diabetes mellitus, type 2): Code(s): E11.9 - Type 2 diabetes mellitus without complications Status: Chronic Assessment and Plan: Sliding scale insulin (8) Anemia: Code(s): D64.9 - Anemia, unspecified Status: Chronic Assessment and Plan: Patient has history of gastric ulcer. Patient was seen by gastroenterology 06/2020 and colonoscopy showed internal hemorrhoids and EGD showed gastric ulcer at that time. At the time of discharge, recommendation was made to continue PPI and follow up as an outpatient for EGD. Patient did not have any follow-up as an outpatient Patient is on p.o. iron and PPI p.o. at home Continue IV PPI q.12 hours Patient was transfused with 1 unit packed red cells yesterday. Hemoglobin remains stable with no additional evidence of bleeding. Will start diet at this time and monitor. Additional transfusion as needed Consulted GI (9) Chest pain: Code(s): R07.9 - Chest pain, unspecified Status: Acute Assessment and Plan: Atypical from history EKG unremarkable in the ER Patient now chest pain-free Serial troponin were negative Continue statin Will have to hold aspirin due to suspected GI bleed (10) Hyperlipidemia: Qualifiers: Hyperlipidemia type: unspecified Qualified Code(s): E78.5 - Hyperlipidemia, unspecified Code(s): E78.5 - Hyperlipidemia, unspecified Status: Chronic Assessment and Plan: Continue statin (11) Electrolyte abnormality: Code(s): E87.8 - Other disorders
[2021-02-06] MEDS: MAGNESIUM SULF 2 GM/WATER 50ML 2 GM/50 ML BAG IVPB (08:47)
[2021-02-06] MEDS: POLYSACCHARIDE IRON COMPLEX 150 MG CAPSULE PO ×2 (08:48→16:35)
[2021-02-06] MEDS: FUROSEMIDE INJ 40 MG/4 ML VIAL IV PUSH ×2 (08:48→19:30)
[2021-02-06] MEDS: ATORVASTATIN 40 MG TABLET PO (08:48)
[2021-02-06] MEDS: PANTOPRAZOLE SODIUM IV 40 MG VIAL IV PUSH ×2 (08:49→19:30)
[2021-02-06 11:55] LABS: Glucose Point of Care 240 (65-105)
[2021-02-06] MEDS: INSULIN ASPART (*BKC) 100 UNITS/ML SUB-Q (11:59)
[2021-02-06] MEDS: BUDESONIDE/FORMOTEROL (*SP) 160-4.5 MCG 6 GM INH 2 PUFF INHALATION ×2 (12:01→20:00)
--- NOTE | 2021-02-06 12:52 | WPDGICN ---
Assessment and Plan Assessment and plan (1) Acute on chronic blood loss anemia: Code(s): D62 - Acute posthemorrhagic anemia Status: Acute Assessment and Plan: multifactorial, had ulcers few months ago and not longer using ppi will continue protonix and EGD monday to reassess she required blood transfusion (2) Gastric ulcer: Code(s): K25.9 - Gastric ulcer, unspecified as acute or chronic, without hemorrhage or perforation Status: Acute Assessment and Plan: will need ppi [facility] (3) Acute diastolic (congestive) heart failure: Code(s): I50.31 - Acute diastolic (congestive) heart failure Status: Acute Assessment and Plan: better after treated medically, using less oxygen (4) Acute respiratory failure with hypoxia: Code(s): J96.01 - Acute respiratory failure with hypoxia Status: Acute Assessment and Plan: COVID test negative from chf exacerbation and anemia (5) Hypertension: Qualifiers: Hypertension type: essential hypertension Qualified Code(s): I10 - Essential (primary) hypertension Code(s): I10 - Essential (primary) hypertension Status: Acute (6) COPD (chronic obstructive pulmonary disease): Qualifiers: COPD type: unspecified COPD Qualified Code(s): J44.9 - Chronic obstructive pulmonary disease, unspecified Code(s): J44.9 - Chronic obstructive pulmonary disease, unspecified Status: Chronic GI Consult Note Consult date/time: 02/06/21 12:52 Reason for consult: acute on chronic blood loss anemia, gastric ulcers HPI: Maura Hill is a 61 year old female with past medical history of CHF, pulmonary hypertension GUANACO, diabetes, obesity hyperventilation, COPD on 4 LNC and also chronic anemia (hb ~ 8) with previous evaluation 06/[address] Wilkerson with EGD that showed non-bleeding gastric ulcers, colonoscopy only hemorrhoids. She had instructions to repeat EGD in 2 months but did not come back, also was supposed to be on PPI daily but she said that did not have a refill. She came to ER with worsening shortness of breath on exertion, also dry cough, she took 5 day course of azithromycin but has not felt better. She was found to be hypoxic, placed 11 L nasal cannula and admitted to ICU. She was also given Lasix and CTA chest was reviewed that showed no pulmonary embolus, diffuse lung disease, consistent moderate pulmonary edema. Also hb 6.8 and given one blood PRBC, hb 7.5 and feeling much better, eating regular lunch, denies overt GIB Review of Systems Constitutional: Constitutional: Reports fatigue Eyes: Eyes: Denies blurry vision ENT: Reports Normal hearing present Cardiovascular: Cardiovascular: Reports chest pain Respiratory: Respiratory: Reports dyspnea on exertion Gastrointestinal: Gastrointestinal: Denies nausea and Denies vomiting Genitourinary: Genitourinary: Denies hematuria Musculoskeletal: Musculoskeletal: Denies neck pain Integumentary/Breasts: Skin/Breast: Denies dry skin Neurologic: Denies confusion Psychiatric: Psychiatric: Denies behavioral changes [facility] Past Medical History Medical History (Updated 02/06/21 @ 12:59 by Zeke Tirado MD) Acute on chronic blood loss anemia Adrenal mass Anemia Chronic hypoxemic respiratory failure COPD (chronic obstructive pulmonary disease) Diabetes mellitus DM2 (diabetes mellitus, type 2) Hyperlipidemia Hypertension Lung nodule 11 mm Tobacco abuse 35 pack year, quit Aug 2019. Surgical History Surgical History (Updated 02/05/21 @ 13:46 by Sarah London NP) H/O section x3 H/O colonoscopy with polypectomy History of appendectomy Hx of cholecystectomy Family History Family History Grandparent Congestive heart failure Mother HTN (hypertension) with goal to be determined Hyperlipidemia Cancer Sibling Age: 54 HTN (hypertensio
--- NOTE | 2021-02-06 13:57 | PM.IMPN ---
Progress Note: A&P Assessment and Plan (1) Acute on chronic respiratory failure with hypoxemia: Code(s): J96.21 - Acute and chronic respiratory failure with hypoxia Status: Acute Assessment and Plan: The patient is chronically on 4 L per nasal cannula at baseline. She is currently on 6 L per nasal cannula. The patient stated that she did test positive for mild GUANACO but has not received her CPAP as of yet. Patient also has pulmonary hypertension and severe restrictive lung disease. She has hypoventilation obesity. She also has COPD and congestive heart failure. Her CTA was read as no pulmonary embolism. She does have diffuse lung disease consistent with moderate pulmonary edema. The patient had been given Lasix in the emergency room and is currently on IV Lasix b.i.d.. She is also being monitored for covid 19. She is placed in airborne and droplet and contact isolation. She was seen by the clinical education consultant. She could be hypoxic due to the fact that her hemoglobin is low as well. However her chest x-ray is more suggestive of congestive heart failure. 02/06/21 pt reports that she is feeling better O2 requirements down from 10L to 6L cont current care (2) Congestive heart failure: Code(s): I50.9 - Heart failure, unspecified Status: Acute Assessment and Plan: The patient shows pulmonary edema on her chest x-ray and she has some mild edema to her lower extremities. Continue with IV Lasix. ECHO pending 02/06/2021 Echocardiogram reveals right-sided heart failure with pulmonary arterial hypertension and valvulopathy (3) COPD (chronic obstructive pulmonary disease): Qualifiers: COPD type: unspecified COPD Qualified Code(s): J44.9 - Chronic obstructive pulmonary disease, unspecified Code(s): J44.9 - Chronic obstructive pulmonary disease, unspecified Status: Chronic Assessment and Plan: Resume her home inhalers. She is being seen by Dr. Boyd outpatient. 02/06/2021 Patient denies feeling as if she is having an acute exacerbation of her underlying COPD (4) Lung nodule: Code(s): R91.1 - Solitary pulmonary nodule Status: Chronic Assessment and Plan: She has had a previous PET scan which shows that her lung nodules are benign. (5) Hypertension: Qualifiers: Hypertension type: essential hypertension Qualified Code(s): I10 - Essential (primary) hypertension Code(s): I10 - Essential (primary) hypertension Status: Acute Assessment and Plan: Hydrochlorothiazide is currently on hold. 02/06/2021 Blood pressure is At goal Continue current care (6) Obstructive sleep apnea: Code(s): G47.33 - Obstructive sleep apnea (adult) (pediatric) Status: Acute Assessment and Plan: Patient stated that she is awaiting her CPAP machine. 02/06/2021 Patient will need sleep study and CPAP setting suspect that settings are not correct (7) Anemia: Code(s): D64.9 - Anemia, unspecified Status: Chronic Assessment and Plan: Patient has a history of anemia and her hemoglobin is typically around 8. The patient has a history of hemorrhoids and had colon polyps removed with a cold last colonoscopy. She is currently not having any active bleeding. The patient will still need anemia profile at some point. However the patient is currently getting 1 unit packed red blood cells and it is too late to obtain the studies as a will be skewed. 02/06/2021 continue to monitor her H&H transfuse PRN cont pantoprazole IV. 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
[2021-02-06 16:26] LABS: Glucose Point of Care 108 (65-105)
[2021-02-06 16:28] LABS: Hematocrit 28.8 % (37.0-47.0); Hemoglobin 8.5 g/dL (12.0-15.0); Mean Corpuscular HGB Conc 29.5 g/dl (32-36); Mean Corpuscular Volume 74.6 fl (80-100); Mean Platelet Volume 10.5 fl (7.4-10.4); Platelet Count Result 292 k/mm3 (150-375); Red Blood Count 3.86 M/mm3 (4.2-5.4); Red Cell Distribution Width 19.2 % (11.5-14.5); White Blood Count 14.2 K/mm3 (4.5-10.0)
[2021-02-06 16:41] LABS: Anion Gap 3 mmol/L (8-16); Blood Urea Nitrogen 16 mg/dL (7-17); Carbon Dioxide 34 mmol/L (22-30); Chloride 103 mmol/L (98-107); Estimated CRCL calculation 72 ml/min; Estimated Glomerular Filt Rate > 60; Glucose 115 mg/dL (65-105); Magnesium 2.2 mg/dL (1.6-2.3); Potassium 4.4 mmol/L (3.4-5.0); Sodium 140 mmol/L (137-145)
[2021-02-06 19:37] LABS: Glucose Point of Care 144 (65-105)
[2021-02-07] VITALS (11 sets, daily range): BP systolic 109–148; BP diastolic 59–82; PULSE 73–96; RESP 13–23; TEMP 36.4–36.9; O2SAT 91–98
[2021-02-07 04:31] LABS: Hematocrit 25.3 % (37.0-47.0); Hemoglobin 7.4 g/dL (12.0-15.0); Mean Corpuscular HGB Conc 29.2 g/dl (32-36); Mean Corpuscular Hemoglobin 21.7 pg (26-34); Mean Corpuscular Volume 74.2 fl (80-100); Mean Platelet Volume 10.8 fl (7.4-10.4); Platelet Count Result 283 k/mm3 (150-375); Red Blood Count 3.41 M/mm3 (4.2-5.4); Red Cell Distribution Width 19.2 % (11.5-14.5); White Blood Count 12.8 K/mm3 (4.5-10.0)
[2021-02-07 04:50] LABS: Alanine Aminotransferase 7 U/L (4-35); Albumin Level 3.6 g/dL (3.5-5.1); Alkaline Phosphatase 119 U/L (38-126); Anion Gap 5 mmol/L (8-16); Aspartate Amino Transferase 28 U/L (14-36); Bilirubin,Total 0.4 mg/dL (0.2-1.3); Blood Urea Nitrogen 15 mg/dL (7-17); Calcium 8.5 mg/dL (8.4-10.2); Carbon Dioxide 33 mmol/L (22-30); Chloride 103 mmol/L (98-107); Estimated CRCL calculation 79 ml/min; Estimated Glomerular Filt Rate > 60; Glucose 132 mg/dL (65-105); Potassium 3.5 mmol/L (3.4-5.0); Sodium 141 mmol/L (137-145)
--- NOTE | 2021-02-07 08:35 | WPDINTPN ---
Progress Note: A&P Assessment and Plan (1) Acute and chronic respiratory failure: Code(s): J96.20 - Acute and chronic respiratory failure, unspecified whether with hypoxia or hypercapnia Status: Acute Assessment and Plan: Acute respiratory failure secondary to COPD and CHF exacerbations Patient on 4 L nasal cannula at baseline, mild GUANACO, pulmonary hypertension and has severe restrictive lung disease likely secondary to morbid obesity Patient has severe diffusion defect on her last PFTs CTA Chest IMPRESSION: 1. No pulmonary embolus. 2. Diffuse lung disease, consistent moderate pulmonary edema. 3. Small pleural effusions. 4. Mild emphysema. 5. Cardiomegaly. 6. Chronic mediastinal and bilateral hilar lymphadenopathy, likely reactive PFT 09/18 IMPRESSION: Severe restriction, increased airway resistance, severe diffusion impairment. No response to bronchodilator. Restriction can mask obstruction. Restriction with decreased diffusion can be seen in interstitial lung disease or pneumonitis. Clinically improved but continues to require 8-10 L of oxygen oxygen requirement. Continue Lasix 40 mg IV q.12 hours Not on steroids as patient is not wheezing DuoNebs p.r.n. Cultures done but does not appear to be infection with no consolidation on CT and normal lactic acid level. Will hold antibiotics at this time. Check procalcitonin I will also consult pulmonary for assistance in management (2) Suspected COVID-19 virus infection: Code(s): Z20.822 - Contact with and (suspected) exposure to COVID-19 Status: Deleted Assessment and Plan: COVID-19 was suspected. SARS-CoV-2 PCR negative (3) Congestive heart failure: Code(s): I50.9 - Heart failure, unspecified Status: Acute Assessment and Plan: ECHO Shows severe pulmonary hypertension, moderate TR mild enlarged atrium diastolic LV dysfunction Summary 1. Complete two-dimensional, color flow and Doppler transthoracic echocardiogram is performed. 2. Left ventricular systolic function is normal, estimated at 65-70%. 3. There is mildly increased left ventricular wall thickness. 4. The left ventricular diastolic function is grade I diastolic dysfunction. 5. Left atrial chamber dimension is moderately enlarged. 6. Right atrial chamber dimension is severely enlarged. 7. There is mild aortic valve stenosis with a peak velocity of 280 cm/s, mean gradient of 12 mmHg, and aortic valve area of 1.9 cm2. 8. There is moderate tricuspid valve regurgitation. 9. Severe pulmonary hypertension, estimated pulmonary arterial systolic pressure is 61 mmHg. Continue Lasix (4) Pulmonary hypertension assoc with unclear multi-factorial mechanisms: Code(s): I27.29 - Other secondary pulmonary hypertension Status: Acute (5) Obstructive sleep apnea: Code(s): G47.33 - Obstructive sleep apnea (adult) (pediatric) Status: Acute Assessment and Plan: Patient does not wear BiPAP or CPAP at home She wears oxygen by nasal cannula I will try CPAP at night as patient is willing to try it (6) COPD (chronic obstructive pulmonary disease): Qualifiers: COPD type: unspecified COPD Qualified Code(s): J44.9 - Chronic obstructive pulmonary disease, unspecified Code(s): J44.9 - Chronic obstructive pulmonary disease, unspecified Status: Chronic Assessment and Plan: See above (7) DM2 (diabetes mellitus, type 2): Code(s): E11.9 - Type 2 diabetes mellitus without complications Status: Deleted Assessment and Plan: Sliding scale insulin (8) Anemia: Code(s): D64.9 - Anemia, unspecified Status: Chronic Assessment and Plan: Patient has history of gastric ulcer. Patient was seen by gastroenterology 06/2020 and colonoscopy showed internal hemorrhoids and EGD showed gastric ulcer at that time. At the time of discharge, recommendation was made to continue PPI and follow up as a
[2021-02-07 08:40] LABS: Glucose Point of Care 117 (65-105)
[2021-02-07] MEDS: polyethylene glycoL 3350 17 GM POWD.PACK PO (08:48)
[2021-02-07] MEDS: POLYSACCHARIDE IRON COMPLEX 150 MG CAPSULE PO ×2 (08:48→16:12)
[2021-02-07] MEDS: POTASSIUM CHLORIDE 20 MEQ PACKET (FOR LIQUID) 40 MEQ PO (08:48)
[2021-02-07] MEDS: FUROSEMIDE INJ 40 MG/4 ML VIAL IV PUSH ×2 (08:49→21:12)
[2021-02-07] MEDS: EZETIMIBE 10 MG TABLET PO (08:49)
[2021-02-07] MEDS: ATORVASTATIN 40 MG TABLET PO (08:49)
[2021-02-07] MEDS: amLODIPine BESYLATE 5 MG TABLET 10 MG PO (08:49)
[2021-02-07] MEDS: hydroCHLOROthiazide 12.5 MG CAPSULE PO (08:49)
[2021-02-07] MEDS: PANTOPRAZOLE SODIUM IV 40 MG VIAL IV PUSH ×2 (08:49→21:12)
[2021-02-07] MEDS: BUDESONIDE/FORMOTEROL (*SP) 160-4.5 MCG 6 GM INH 2 PUFF INHALATION ×2 (08:51→20:00)
--- NOTE | 2021-02-07 10:30 | WPDGIPROGNO ---
Progress Note: A&P Assessment and Plan (1) Acute on chronic blood loss anemia: Code(s): D62 - Acute posthemorrhagic anemia Status: Acute Assessment and Plan: had ulcers last time had EGD, now using ppi again required blood transfusion on admission egd tomorrow (2) Acute on chronic respiratory failure with hypoxemia: Code(s): J96.21 - Acute and chronic respiratory failure with hypoxia Status: Acute Assessment and Plan: improving, combination from chf and copd doing better (3) Gastric ulcer: Code(s): K25.9 - Gastric ulcer, unspecified as acute or chronic, without hemorrhage or perforation Status: Acute Assessment and Plan: on ppi bid (4) Acute diastolic (congestive) heart failure: Code(s): I50.31 - Acute diastolic (congestive) heart failure Status: Acute (5) COPD (chronic obstructive pulmonary disease): Qualifiers: COPD type: unspecified COPD Qualified Code(s): J44.9 - Chronic obstructive pulmonary disease, unspecified Code(s): J44.9 - Chronic obstructive pulmonary disease, unspecified Status: Chronic Subjective Date/time seen: 02/07/21 10:30 Interval history: she is eating regular diet, still some epigastric pain, overall breathing better Review of Systems Review of Systems: All systems reviewed & are unremarkable except as noted in HPI and below Exam Const: General: comfortable and no acute distress Other: using nasal cannula HENMT: General nose exam: Normal nares present Eyes: General: appearance normal, both eyes and all related structures Neck: Neck: supple Resp: Auscultation: rales (bibasilar), no wheezes and diminished lung sounds Cardio: Rate: regular rate GI: GI Palp: Yes Soft to palpation, No Firmness to palpation present (GI) and No Tenderness to palpation present (GI) Auscultation: normal bowel sounds Skin: General skin exam: no erythema Neuro: Speech: normal speech Extrem: General: normal to inspection Psych: Affect: normal affect Objective Data Vital Signs Vital Signs: Vital Signs - 24 hr 02/06/21 12:00 02/06/21 14:00 02/06/21 14:14 Temperature 97.6 F Pulse Rate 85 82 81 Respiratory Rate 21 H 25 H Blood Pressure 127/75 136/76 Pulse Oximetry 93 92 02/06/21 16:00 02/06/21 19:23 02/06/21 20:00 Temperature 98.6 F 98.8 F Pulse Rate 80 76 Respiratory Rate 20 19 Blood Pressure 126/71 122/82 Pulse Oximetry 90 90 92 02/07/21 00:00 02/07/21 04:00 02/07/21 08:00 Temperature 97.6 F 97.7 F Pulse Rate 74 74 82 Respiratory Rate 17 18 13 Blood Pressure 122/82 126/63 123/64 Pulse Oximetry 91 91 91 Intake/Output Intake/Output: Intake & Output 02/04/21 02/05/21 02/06/21 02/07/21 23:59 23:59 23:59 23:59 Intake Total 590 2190 980 Output Total 4200 1670 1400 [employer] [facility] [employer] [facility] [id number] Meds/Results Medications: Active Medications Generic Name Dose Route Start Last Admin Trade Name Freq PRN Reason Stop Dose Admin Albuterol 2.5 mg 02/05/21 11:28 Albuterol Sulfate Neb 2.5 Mg/0.5 Ml Inh INHALATION Q6HRT PRN Shortness Of Breath Amlodipine Besylate 10 mg 02/07/21 09:00 02/07/21 08:49 Amlodipine Besylate 5 Mg Tablet PO 10 mg DAILY EMIR Administration Atorvastatin Calcium 40 mg 02/06/21 09:00 02/07/21 08:49 Atorvastatin 40 Mg Tablet PO 40 mg DAILY EMIR Administration Bisacodyl 10 mg 02/07/21 08:08 Bisacodyl 10 Mg Suppository RECTAL QAM PRN Constipation Budesonide/Formoterol Fumarate 2 puff 02/05/21 20:00 02/07/21 08:51 Budesonide/Formoterol (*Sp) 160-4.5 Mcg 6 Gm Inh INHALATION 2 puff Q12HRT EMIR Administration Dextrose 12.5 gm 02/05/21 11:26 Dextrose 50% 25 Gm/50 Ml Syringe IV PUSH PRN PRN Hypoglycemia Protocol Ezetimibe 10 mg 02/07/21 09:00 02/07/21 08:49 Ezetimibe 10 Mg Tablet PO 10 mg DAILY EMIR Administration Furosemide 40 mg 02/06/21 09:00 02/07/21 08:4
[2021-02-07 12:19] LABS: Glucose Point of Care 130 (65-105)
--- NOTE | 2021-02-07 12:24 | PM.IMPN ---
Progress Note: A&P Assessment and Plan (1) Acute on chronic respiratory failure with hypoxemia: Code(s): J96.21 - Acute and chronic respiratory failure with hypoxia Status: Acute Assessment and Plan: The patient is chronically on 4 L per nasal cannula at baseline. She is currently on 6 L per nasal cannula. The patient stated that she did test positive for mild GUANACO but has not received her CPAP as of yet. Patient also has pulmonary hypertension and severe restrictive lung disease. She has hypoventilation obesity. She also has COPD and congestive heart failure. Her CTA was read as no pulmonary embolism. She does have diffuse lung disease consistent with moderate pulmonary edema. The patient had been given Lasix in the emergency room and is currently on IV Lasix b.i.d.. She is also being monitored for covid 19. She is placed in airborne and droplet and contact isolation. She was seen by the shoemaking cutter. She could be hypoxic due to the fact that her hemoglobin is low as well. However her chest x-ray is more suggestive of congestive heart failure. 02/06/21 pt reports that she is feeling better O2 requirements down from 10L to 6L cont current care 02/07/21 remains stable with increased O2 requirements from baseline. shoemaking cutter following (2) Acute on chronic blood loss anemia: Code(s): D62 - Acute posthemorrhagic anemia Status: Acute Assessment and Plan: 02/07/21 pt received PRBCs at admission Consult placed to Gastroenterology Plan for EGD tomorrow (3) Congestive heart failure: Code(s): I50.9 - Heart failure, unspecified Status: Acute Assessment and Plan: The patient shows pulmonary edema on her chest x-ray and she has some mild edema to her lower extremities. Continue with IV Lasix. ECHO pending 02/06/2021 Echocardiogram reveals right-sided heart failure with pulmonary arterial hypertension and valvulopathy 02/07/2021 Significant cardiomyopathy Will address GI bleeding 1st and then follow-up with cardiology (4) COPD (chronic obstructive pulmonary disease): Qualifiers: COPD type: unspecified COPD Qualified Code(s): J44.9 - Chronic obstructive pulmonary disease, unspecified Code(s): J44.9 - Chronic obstructive pulmonary disease, unspecified Status: Chronic Assessment and Plan: Resume her home inhalers. She is being seen by Dr. Boyd outpatient. 02/06/2021 Patient denies feeling as if she is having an acute exacerbation of her underlying COPD (5) Lung nodule: Code(s): R91.1 - Solitary pulmonary nodule Status: Chronic Assessment and Plan: She has had a previous PET scan which shows that her lung nodules are benign. (6) Hypertension: Qualifiers: Hypertension type: essential hypertension Qualified Code(s): I10 - Essential (primary) hypertension Code(s): I10 - Essential (primary) hypertension Status: Acute Assessment and Plan: Hydrochlorothiazide is currently on hold. 02/06/2021 Blood pressure is At goal Continue current care 02/07/21 remains at goal (7) Obstructive sleep apnea: Code(s): G47.33 - Obstructive sleep apnea (adult) (pediatric) Status: Acute Assessment and Plan: Patient stated that she is awaiting her CPAP machine. 02/06/2021 Patient will need sleep study and CPAP setting suspect that settings are not correct (8) Anemia: Code(s): D64.9 - Anemia, unspecified Status: Chronic Assessment and Plan: Patient has a history of anemia and her hemoglobin is typically around 8. The patient has a history of hemorrhoids and had colon polyps removed with a cold last colonoscopy. She is currently not having any active bleeding. The patient will still need anemia profile at some point. However the patient is currently getting 1 unit packed red blood cells and it is too late to obtain the studies as a will be skewed. 02/06/2021
--- NOTE | 2021-02-07 13:54 | PM.CNPUL ---
Assessment and Plan Assessment and plan (1) Chronic hypoxemic respiratory failure: Code(s): J96.11 - Chronic respiratory failure with hypoxia Status: Acute Assessment and Plan: She has chronic hypoxemic respiratory failure from COPD, GUANACO and morbid obesity. At baseline patient wears 4 L with rest and 5 L with an Oxymizer with ambulation. She will have O2 weaned to maintain adequate oxygenation with saturaiton 90% - 944%: her baseline is 4 L at rest. (2) Obstructive sleep apnea: Code(s): G47.33 - Obstructive sleep apnea (adult) (pediatric) Status: Acute Assessment and Plan: She was in the office Mar 4 for a visit, and had an order for equipment, which has not been delivered yet. She also has COPD, and requires BiPAP 12/7 with 6 L bleed in at night. WIll check with company when open. (3) COPD (chronic obstructive pulmonary disease): Qualifiers: COPD type: unspecified COPD Qualified Code(s): J44.9 - Chronic obstructive pulmonary disease, unspecified Code(s): J44.9 - Chronic obstructive pulmonary disease, unspecified Status: Chronic Assessment and Plan: Baseline COPD regimen is Symbicort 160-4.5, two puffs b.i.d. and long-acting muscarinic antagonist. There is no evidence of pneumonia or other infection; no evidence of COPD exacerbation. History of Present Illness History of Present Illness Consult date: 03/08/21 Chief complaint: acute respiratory failure,chf with pulmonary edema Narrative: NEW: Maura Hill is a 61 yo female with restrictive lung disease, chronic hypoxemic respiratory failure on O2 3 L/ at rest, 6 L/min with exertion. She is followed in our pulmonary office. She complained of increased shortness of breath, has been sitting with her front door open, had increased nasal congestion seasonal allergies. Her primary doctor called in antibiotic and Benadryl., She developed more paroxysmal nocturnal dyspnea, ankle swelling; she takes Lasix once a week, recently received 3 tablets to control edema She was admitted w anemia, has been transfused, 1 unit rbc She denies contact with anyone known to have COVID, no travel, no sick household contacts Review of Systems Review of Systems: All systems reviewed & are unremarkable except as noted in HPI and below ENT: Reports nasal congestion Cardiovascular: Cardiovascular: Reports pedal edema and Reports leg edema Respiratory: Respiratory: Reports dyspnea Gastrointestinal: Gastrointestinal: Reports no additional gastrointestinal complaints Genitourinary: Genitourinary: Denies dysuria [facility] Past Medical History Medical History (Updated 02/09/21 @ 07:32 by Edmundo Crow MD) Acute on chronic blood loss anemia Adrenal mass Anemia Chronic hypoxemic respiratory failure COPD (chronic obstructive pulmonary disease) Diabetes mellitus Hyperlipidemia Hypertension Lung nodule 11 mm Tobacco abuse 35 pack year, quit Aug 2019. Surgical History Surgical History (Updated 02/05/21 @ 13:46 by Sarah London NP) H/O section x3 H/O colonoscopy with polypectomy History of appendectomy Hx of cholecystectomy Family History Family History Grandparent Congestive heart failure Mother HTN (hypertension) with goal to be determined Hyperlipidemia Cancer Sibling Age: 54 HTN (hypertension) with goal to be determined Asthma Lupus Sibling Age: 51 Diabetes mellitus Heart disease Social History Social History Social History: The patient typically smoked 1 pack a cigarettes a day for 35 years. she said she stop smoking August of 2019. She has 3 children. She is unemployed at this time. S
[2021-02-07 16:09] LABS: Glucose Point of Care 157 (65-105)
[2021-02-07 17:00] LABS: Anion Gap 6 mmol/L (8-16); Blood Urea Nitrogen 17 mg/dL (7-17); Calcium 8.9 mg/dL (8.4-10.2); Carbon Dioxide 35 mmol/L (22-30); Chloride 102 mmol/L (98-107); Estimated CRCL calculation 65 ml/min; Estimated Glomerular Filt Rate > 60; Glucose 162 mg/dL (65-105); Sodium 143 mmol/L (137-145)
[2021-02-07] MEDS: INSULIN ASPART (*BKC) 100 UNITS/ML SUB-Q (21:11)
[2021-02-07 21:26] LABS: Glucose Point of Care 227 (65-105)
[2021-02-08] VITALS (23 sets, daily range): BP systolic 100–132; BP diastolic 48–75; PULSE 63–102; RESP 14–23; TEMP 36.2–36.7; O2SAT 89–100
[2021-02-08 05:26] LABS: Hematocrit 26.3 % (37.0-47.0); Hemoglobin 7.8 g/dL (12.0-15.0); Mean Corpuscular HGB Conc 29.7 g/dl (32-36); Mean Corpuscular Hemoglobin 22.1 pg (26-34); Mean Corpuscular Volume 74.5 fl (80-100); Mean Platelet Volume 10.8 fl (7.4-10.4); Platelet Count Result 293 k/mm3 (150-375); Red Blood Count 3.53 M/mm3 (4.2-5.4); Red Cell Distribution Width 19.3 % (11.5-14.5); White Blood Count 13.2 K/mm3 (4.5-10.0)
[2021-02-08 05:42] LABS: Alanine Aminotransferase 7 U/L (4-35); Albumin Level 3.7 g/dL (3.5-5.1); Alkaline Phosphatase 124 U/L (38-126); Anion Gap 5 mmol/L (8-16); Aspartate Amino Transferase 29 U/L (14-36); Bilirubin,Total 0.3 mg/dL (0.2-1.3); Blood Urea Nitrogen 20 mg/dL (7-17); Calcium 9.1 mg/dL (8.4-10.2); Carbon Dioxide 35 mmol/L (22-30); Chloride 102 mmol/L (98-107); Estimated CRCL calculation 72 ml/min; Estimated Glomerular Filt Rate > 60; Glucose 156 mg/dL (65-105); Magnesium 1.9 mg/dL (1.6-2.3); Potassium 3.8 mmol/L (3.4-5.0); Sodium 142 mmol/L (137-145)
[2021-02-08 06:52] LABS: Glucose Point of Care 154 (65-105)
--- NOTE | 2021-02-08 08:42 | WPDINTPN ---
Progress Note: A&P Assessment and Plan (1) Acute and chronic respiratory failure: Code(s): J96.20 - Acute and chronic respiratory failure, unspecified whether with hypoxia or hypercapnia Status: Acute Assessment and Plan: Acute respiratory failure secondary to COPD and CHF exacerbations Patient on 4 L nasal cannula at baseline, mild GUANACO, pulmonary hypertension and has severe restrictive lung disease likely secondary to morbid obesity Patient has severe diffusion defect on her last PFTs CTA Chest IMPRESSION: 1. No pulmonary embolus. 2. Diffuse lung disease, consistent moderate pulmonary edema. 3. Small pleural effusions. 4. Mild emphysema. 5. Cardiomegaly. 6. Chronic mediastinal and bilateral hilar lymphadenopathy, likely reactive PFT 09/18 IMPRESSION: Severe restriction, increased airway resistance, severe diffusion impairment. No response to bronchodilator. Restriction can mask obstruction. Restriction with decreased diffusion can be seen in interstitial lung disease or pneumonitis. Clinically improved but continues to require 8-10 L of oxygen oxygen requirement. Chest x-ray still shows persistent edema Patient is on Lasix 40 mg IV q.12 hours and is fairly negative over last 2 days on her IO balance Not on steroids as patient is not wheezing DuoNebs p.r.n. Patient has mild leukocytosis but has no other symptoms suggestive of infection. She is afebrile, cough is nonproductive and does not complained of any chills or rigors. She did complete a course of azithromycin as an outpatient prior to presentation. Cultures were done on admission and have been negative and there was no consolidation on CT and normal lactic acid level. Will hold antibiotics at this time. Check procalcitonin. Initial lab was ordered was canceled by lab and I will resend it. I will recheck BNP I have consulted pulmonary for assistance in management once patient is transferred to floor (2) Suspected COVID-19 virus infection: Code(s): Z20.822 - Contact with and (suspected) exposure to COVID-19 Status: Deleted Assessment and Plan: COVID-19 was suspected. SARS-CoV-2 PCR negative (3) Congestive heart failure: Code(s): I50.9 - Heart failure, unspecified Status: Acute Assessment and Plan: ECHO Shows severe pulmonary hypertension, moderate TR mild enlarged atrium diastolic LV dysfunction Summary 1. Complete two-dimensional, color flow and Doppler transthoracic echocardiogram is performed. 2. Left ventricular systolic function is normal, estimated at 65-70%. 3. There is mildly increased left ventricular wall thickness. 4. The left ventricular diastolic function is grade I diastolic dysfunction. 5. Left atrial chamber dimension is moderately enlarged. 6. Right atrial chamber dimension is severely enlarged. 7. There is mild aortic valve stenosis with a peak velocity of 280 cm/s, mean gradient of 12 mmHg, and aortic valve area of 1.9 cm2. 8. There is moderate tricuspid valve regurgitation. 9. Severe pulmonary hypertension, estimated pulmonary arterial systolic pressure is 61 mmHg. Continue Lasix (4) Pulmonary hypertension assoc with unclear multi-factorial mechanisms: Code(s): I27.29 - Other secondary pulmonary hypertension Status: Acute (5) Obstructive sleep apnea: Code(s): G47.33 - Obstructive sleep apnea (adult) (pediatric) Status: Acute Assessment and Plan: Patient does not wear BiPAP or CPAP at home She wears oxygen by nasal cannula She wore CPAP at night and will continue (6) COPD (chronic obstructive pulmonary disease): Qualifiers: COPD type: unspecified COPD Qualified Code(s): J44.9 - Chronic obstructive pulmonary disease, unspecified Code(s): J44.9 - Chronic obstructive pulmonary disease, unspecified Status: Chronic Assessment and Plan: See above (7) DM2 (diabetes mellitus, type 2): Code(s): E11.9 - Type 2 d
--- NOTE | 2021-02-08 08:59 | PC.NURSE ---
This patient, Maura Hill, was transferred to [facility] on 02/08/21 at 0845. Personal belongings sent with patient. Report given to RN. Appropriate documentation sent with patient.
[2021-02-08 09:24] LABS: NT Pro B Type Natriuretic Pept 282 PG/ML (5-100)
[2021-02-08] MEDS: ATORVASTATIN 40 MG TABLET PO (10:06)
[2021-02-08] MEDS: FUROSEMIDE INJ 40 MG/4 ML VIAL IV PUSH ×2 (10:06→21:37)
[2021-02-08] MEDS: amLODIPine BESYLATE 5 MG TABLET 10 MG PO (10:06)
[2021-02-08] MEDS: POLYSACCHARIDE IRON COMPLEX 150 MG CAPSULE PO ×2 (10:06→18:15)
[2021-02-08] MEDS: EZETIMIBE 10 MG TABLET PO (10:06)
[2021-02-08] MEDS: PANTOPRAZOLE SODIUM IV 40 MG VIAL IV PUSH (10:07)
--- NOTE | 2021-02-08 11:00 | PM.PNPUL ---
Progress Note: A&P Assessment and Plan (1) Chronic hypoxemic respiratory failure: Code(s): J96.11 - Chronic respiratory failure with hypoxia Status: Acute Assessment and Plan: Patient with hypoxemic respiratory failure from COPD, GUANACO and morbid obesity. At baseline patient wears 4 L with rest and 5 L with an Oxymizer with ambulation. Today I have decreased patient to 4 L at rest which is her baseline and her saturations currently are 97%. (2) Obstructive sleep apnea: Code(s): G47.33 - Obstructive sleep apnea (adult) (pediatric) Status: Acute Assessment and Plan: Patient with obstructive sleep apnea and COPD requiring BiPAP 10/05 with 6 L bleed in at night. This was ordered in the Pulmonary Clinic after her visit on 12/31 through [facility]. At this time nothing has been set up and we are in the process of calling the DME company to find out what the delay is. If her home machine can be delivered to the hospital I will place her on 10/05 with 6 L bleed in at night in the hospital. (3) COPD (chronic obstructive pulmonary disease): Qualifiers: COPD type: unspecified COPD Qualified Code(s): J44.9 - Chronic obstructive pulmonary disease, unspecified Code(s): J44.9 - Chronic obstructive pulmonary disease, unspecified Status: Chronic Assessment and Plan: At home patient is maintained on Symbicort 160-4.5 at 2 puffs b.i.d. and long-acting muscarinic antagonist. She is currently on the Symbicort and I will add tiotroprium 0.5 mg neb Q 6. todauy. I see no evidence of pneumonia or tracheobronchitis and do not feel antibiotics are needed at this time. Patient is without wheezing and I do not feel there is a need for oral or systemic steroids at this time. Subjective Date/time seen: 02/08/21 11:00 Interval history: 02/07 Narrative: NEW: Maura Hill is a 61 yo female with restrictive lung disease, chronic hypoxeic resp failure on O2 3 L/ at rest, 6 L/min with exertion, GUANACO requiring 12/7 and 6 L bleed in (waiting on set up). Had increased shortness of breath, has been sitting with her front day open, had increased nasal congestion, seasonal allergies her primary doctor called in antibiotic and benadryl. she has had more PND, ankle swelling; she takes Lasix once a week, recently received 3 tablets to control edema She was admitted w anemia, has been transfused, 1 unit rbc. no contact with anyone known to have COVID, no travel, no sick household contacts. 02/08 Today patient states she is breathing normal for her, no phlegm production yesterday or today, SOB same as usual for her. Saturations 97% on 4 L (her home rest dose). Was on CPAP 10 last night. PMHx: Pulmonary clinic patient last seen 12/31/2020 4 month follow-up regarding COPD on oxygen. Dgt present today. Hx CHF. Here via wheelchair and cane. She had PFTs done since last OV and PET-CT for f/u nodule. Had her sleep study done as well. All results discussed with patient with f/u plans. She feels stable with her breathing. She has lost weight since last visit. Denies chest pains or fevers. She uses her rescue inhaler daily. C/o gout in her left foot. Echo 07/12/20 Left ventricular systolic function is hyperdynamic, estimated at >70%. Mild concentric increased left ventricular wall thickness. RVSP 62mmHg. PFT 09/15/20 Severe restriction, increased airway resistance, severe diffusion impairment. No response to bronchodilator. Restriction can mask obstruction. Restriction with decreased diffusion can be seen in interstitial lung disease or pneumonitis. Restriction with low DLCO and obstruction can be seen in sarcoidosis, heart failure and asbestosis. 11mm nodule noted on Chest CTA 09/08/19. Infectious vs malignancy. Chest CTA 07/12/20 No evidence for pulmonary embolism. Bilateral pulmonary nodules are stable measuring up to 13 mm in the right upper lobe. Consider follow-up PET/CT examination or CT chest in
[2021-02-08 12:06] LABS: Glucose Point of Care 138 (65-105)
[2021-02-08] MEDS: LACTATED RINGERS 1,000 ML 150 ML IV CONT (12:07)
--- NOTE | 2021-02-08 12:18 | WPDANESEPPF ---
Anes - Initial Pre Proc Eval Procedure: Operation Date: 02/08/21 13:00 Proposed Procedures p Esophagogastroduodenoscopy - Edmundo Crow MD Date/Time: 02/08/21 12:18 Surgeon: Sofia Doss MD Pre Op Diagnosis: acute respiratory failure,chf with pulmonary edema Patient Data Age: 61 Gender: F Height: 5 ft 6 in Weight: 136.6 kg Last Vital Signs Temp 98.1 F 02/08/21 12:00 Pulse 78 02/08/21 12:00 Resp 16 02/08/21 12:00 BP 100/48 L 02/08/21 12:00 Pulse Ox 94 02/08/21 12:00 Allergies Allergy/AdvReac Type Severity Reaction Status Date / Time Penicillins Allergy Hives Verified 02/05/21 08:16 Sulfa (Sulfonamide Allergy unknown Verified 02/05/21 08:16 Antibiotics) Home Medications Medication Instructions Recorded Confirmed Type aspirin [Aspir-81] 81 mg PO DAILY 09/08/19 02/05/21 History atorvastatin 40 mg PO DAILY 09/08/19 02/05/21 History ezetimibe 10 mg PO DAILY 09/08/19 02/05/21 History metformin 500 mg PO DAILY 09/08/19 02/05/21 History albuterol sulfate 2 puff INHALATION QID #6.7 gm 09/12/19 02/05/21 Rx polysaccharide iron complex 150 mg PO BID 07/11/20 02/05/21 History [Poly-Iron] umeclidinium 62.5 mcg/actuation 1 inhalation INHALATION Q24H #30 07/24/20 02/05/21 Rx blister powder for inhalation each amlodipine 10 mg PO DAILY 02/05/21 02/05/21 History furosemide 20 mg PO DAILY PRN 02/05/21 02/05/21 History glimepiride 2 mg PO DAILY 02/05/21 02/05/21 History hydrochlorothiazide 12.5 mg PO EVERY OTHER DAY 02/05/21 02/05/21 History Laboratory Tests 02/07/21 02/07/21 02/07/21 12:16 16:07 16:08 WBC RBC Hgb Hct MCV MCH MCHC RDW Plt Count MPV Sodium 143 mmol/L mmol/L (137-145) Potassium 4.0 mmol/L mmol/L (3.4-5.0) Chloride 102 mmol/L mmol/L (98-107) Carbon Dioxide 35 mmol/L H mmol/L (22-30) Anion Gap 6 mmol/L L mmol/L (8-16) BUN 17 mg/dL mg/dL (7-17) Creatinine 1.10 mg/dL H mg/dL (0.7-1.0) Estim Creat Clear Calc 65 ml/min ml/min Estimated GFR > 60 (59 - ) Glucose 162 mg/dL H mg/dL (65-105) POC Capillary Glucose 130 mg/dl H mg/dl 157 mg/dl H mg/dl (65-105) (65-105) Calcium 8.9 mg/dL mg/dL (8.4-10.2) Magnesium Total Bilirubin AST ALT Alkaline Phosphatase NT-Pro-B Natriuret Pep Total Protein Albumin 02/07/21 02/08/21 02/08/21 21:10 05:13 05:13 WBC 13.2 K/mm3 H K/mm3 (4.5-10.0) RBC 3.53 M/mm3 L M/mm3 (4.2-5.4) Hgb 7.8 g/dL L g/dL (12.0-15.0) Hct 26.3 % L % (37.0-47.0) MCV 74.5 fl L fl (80-100) MCH 22.1 pg L pg (26-34) MCHC 29.7 g/dl L g/dl (32-36) RDW 19.3 % H % (11.5-14.5) Plt Count 293 k/mm3 k/mm3 (150-375) MPV 10.8 fl H fl (7.4-10.4) Sodium 142 mmol/L mmol/L (137-145) Potassium 3.8 mmol/L mmol/L (3.4-5.0) Chloride 102 mmol/L mmol/L (98-107) Carbon Dioxide 35 mmol/L H mmol/L (22-30) Anion Gap 5 mmol/L L mmol/L (8-16) BUN 20 mg/dL H mg/dL (7-17) Creatinine 1.00 mg/dL mg/dL (0.7-1.0) Estim Creat Clear Calc 72 ml/min ml/min Estimated GFR > 60 (59 - ) Glucose 156 mg/dL H mg/dL (65-105) POC Capillary Glucose 227 mg/dl H mg/dl (65-105) Calcium 9.1 mg/dL mg/dL (8.4-10.2) Magnesium 1.9 mg/dL mg/dL (1.6-2.3) Total Bilirubin 0.3 mg/dL mg/dL (0.2-1.3) AST 29 U/L U/L (14-36) ALT 7 U/L U/L (4-35) Alkaline Phosphatase 124 U/L U/L (38-126) NT-Pro-B Natriuret Pep Total Protein 8.0 g/dL g/d
--- NOTE | 2021-02-08 13:25 | PC.NURSE ---
Return from GI lab via stretcher.
[2021-02-08 14:48] LABS: Glucose Point of Care 112 (65-105)
--- NOTE | 2021-02-08 17:24 | PM.IMPN ---
Progress Note: A&P Assessment and Plan (1) Acute on chronic respiratory failure with hypoxemia: Code(s): J96.21 - Acute and chronic respiratory failure with hypoxia Status: Acute Assessment and Plan: The patient is chronically on 4 L per nasal cannula at baseline. She is currently on 6 L per nasal cannula. The patient stated that she did test positive for mild GUANACO but has not received her CPAP as of yet. Patient also has pulmonary hypertension and severe restrictive lung disease. She has hypoventilation obesity. She also has COPD and congestive heart failure. Her CTA was read as no pulmonary embolism. She does have diffuse lung disease consistent with moderate pulmonary edema. The patient had been given Lasix in the emergency room and is currently on IV Lasix b.i.d.. She is also being monitored for covid 19. She is placed in airborne and droplet and contact isolation. She was seen by the landscape architect and planner. She could be hypoxic due to the fact that her hemoglobin is low as well. However her chest x-ray is more suggestive of congestive heart failure. 02/06/21 pt reports that she is feeling better O2 requirements down from 10L to 6L cont current care 02/07/21 remains stable with increased O2 requirements from baseline. landscape architect and planner following 02/08/21 17:24 Patient with restrictive lung disease is transferred out of ICU today patient is seen pulmonology, patient states feeling better compared to when she arrived the phlegm has also improved, denies any fever or chills, and was seen by GI today and had a EGD which showed some gastritis recommended to continue Protonix 40 mg once for 1 month, patient is clinically stable continue to monitor and further recommendation to follow (2) Acute on chronic blood loss anemia: Code(s): D62 - Acute posthemorrhagic anemia Status: Acute Assessment and Plan: 02/07/21 pt received PRBCs at admission Consult placed to Gastroenterology Plan for EGD tomorrow 02/08/21 Patient had a EGD today it showed gastritis, GI recommended Protonix 40 mg q.day (3) Congestive heart failure: Code(s): I50.9 - Heart failure, unspecified Status: Acute Assessment and Plan: The patient shows pulmonary edema on her chest x-ray and she has some mild edema to her lower extremities. Continue with IV Lasix. ECHO pending 02/06/2021 Echocardiogram reveals right-sided heart failure with pulmonary arterial hypertension and valvulopathy 02/07/2021 Significant cardiomyopathy Will address GI bleeding 1st and then follow-up with cardiology (4) COPD (chronic obstructive pulmonary disease): Qualifiers: COPD type: unspecified COPD Qualified Code(s): J44.9 - Chronic obstructive pulmonary disease, unspecified Code(s): J44.9 - Chronic obstructive pulmonary disease, unspecified Status: Chronic Assessment and Plan: Resume her home inhalers. She is being seen by Dr. Boyd outpatient. 02/06/2021 Patient denies feeling as if she is having an acute exacerbation of her underlying COPD (5) Lung nodule: Code(s): R91.1 - Solitary pulmonary nodule Status: Chronic Assessment and Plan: She has had a previous PET scan which shows that her lung nodules are benign. (6) Hypertension: Qualifiers: Hypertension type: essential hypertension Qualified Code(s): I10 - Essential (primary) hypertension Code(s): I10 - Essential (primary) hypertension Status: Acute Assessment and Plan: Hydrochlorothiazide is currently on hold. 02/06/2021 Blood pressure is At goal Continue current care 02/07/21 remains at goal (7) Obstructive sleep apnea: Code(s): G47.33 - Obstructive sleep apnea (adult) (pediatric) Status: Acute Assessment and Plan: Patient stated that she is awaiting her CPAP machine. 02/06/2021 Patient will need sleep study and CPAP setting suspect that settings are not correct (8) An
[2021-02-08 17:34] LABS: Glucose Point of Care 259 (65-105)
[2021-02-08] MEDS: INSULIN ASPART (*BKC) 100 UNITS/ML SUB-Q (18:15)
[2021-02-08] MEDS: BUDESONIDE/FORMOTEROL (*SP) 160-4.5 MCG 6 GM INH 2 PUFF INHALATION (20:32)
[2021-02-08] MEDS: IPRATROPIUM BR 0.02% INH SOLN 0.5 MG/2.5 ML VIAL INHALATION (20:32)
[2021-02-08 21:41] LABS: Glucose Point of Care 98 (65-105)
[2021-02-09] VITALS (11 sets, daily range): BP systolic 108–116; BP diastolic 64–93; PULSE 64–92; RESP 16–20; TEMP 36.1–36.3; O2SAT 91–100
[2021-02-09] MEDS: IPRATROPIUM BR 0.02% INH SOLN 0.5 MG/2.5 ML VIAL INHALATION ×2 (01:17→08:11)
[2021-02-09 06:16] LABS: Glucose Point of Care 132 (65-105)
[2021-02-09 06:28] LABS: Hematocrit 26.6 % (37.0-47.0); Hemoglobin 7.7 g/dL (12.0-15.0); Mean Corpuscular HGB Conc 28.9 g/dl (32-36); Mean Corpuscular Hemoglobin 21.2 pg (26-34); Mean Corpuscular Volume 73.1 fl (80-100); Mean Platelet Volume 10.7 fl (7.4-10.4); Platelet Count Result 326 k/mm3 (150-375); Red Blood Count 3.64 M/mm3 (4.2-5.4); Red Cell Distribution Width 18.9 % (11.5-14.5); White Blood Count 13.8 K/mm3 (4.5-10.0)
[2021-02-09 06:37] LABS: Alanine Aminotransferase 8 U/L (4-35); Albumin Level 3.7 g/dL (3.5-5.1); Alkaline Phosphatase 129 U/L (38-126); Anion Gap 1 mmol/L (8-16); Aspartate Amino Transferase 32 U/L (14-36); Bilirubin,Total 0.4 mg/dL (0.2-1.3); Blood Urea Nitrogen 20 mg/dL (7-17); Calcium 8.8 mg/dL (8.4-10.2); Carbon Dioxide 39 mmol/L (22-30); Chloride 98 mmol/L (98-107); Estimated CRCL calculation 66 ml/min; Estimated Glomerular Filt Rate > 60; Glucose 151 mg/dL (65-105); Magnesium 1.9 mg/dL (1.6-2.3); Potassium 3.4 mmol/L (3.4-5.0); Sodium 138 mmol/L (137-145)
--- NOTE | 2021-02-09 07:30 | WPDGIPROGNO ---
Progress Note: A&P Assessment and Plan (1) PATRICIA (iron deficiency anemia): Code(s): D50.9 - Iron deficiency anemia, unspecified Status: Acute Assessment and Plan: her blood counts are stable. (2) Erosive gastritis: Code(s): K29.60 - Other gastritis without bleeding Status: Acute Assessment and Plan: We discussed the role of NSAIDs and gastritis. I told her that her H pylori was negative and that she will not need antibiotics. We want her to take a PPI for 4 weeks and then follow up with Dr. Murillo Time Spent With Patient Time with patient: 15 - 25 minutes Subjective Date/time seen: 02/09/21 07:30 She feels good today. No abdominal pain. No sign of bleeding. We discussed her endoscopy results. She does have erosive gastritis but this is an improvement over the ulcers that she had last fall. She had only taken 1 month of PPI because she was unable to get a refill by the office for some reason. I told her that we will have her take at least 4 more weeks of a proton pump inhibitor on discharge. Review of Systems Respiratory: Respiratory: Reports no additional respiratory complaints Gastrointestinal: Gastrointestinal: Denies abdominal pain, Denies melena and Denies dyspepsia Exam GI: Inspection: normal to inspection GI Palp: No abdominal tenderness and Yes Soft to palpation Auscultation: normal bowel sounds Objective Data Vital Signs Vital Signs: Vital Signs - 24 hr 02/08/21 08:00 02/08/21 08:58 02/08/21 09:24 Temperature 36.3 C L 36.4 C L Pulse Rate 74 73 Respiratory Rate 17 16 Blood Pressure 124/70 129/63 Pulse Oximetry 96 96 96 02/08/21 12:00 02/08/21 12:50 02/08/21 13:00 Temperature 36.7 C Pulse Rate 78 81 78 Respiratory Rate 16 16 16 Blood Pressure 100/48 L 121/68 129/71 Pulse Oximetry 94 92 93 02/08/21 13:10 02/08/21 13:51 02/08/21 13:56 Temperature Pulse Rate 78 63 Respiratory Rate 16 20 Blood Pressure 118/69 Pulse Oximetry 92 95 02/08/21 14:00 02/08/21 16:00 02/08/21 20:00 Temperature 36.3 C L Pulse Rate 102 H 83 82 Respiratory Rate 20 Blood Pressure 108/70 Pulse Oximetry 90 92 02/08/21 20:33 02/08/21 20:45 02/08/21 21:55 Temperature 36.2 C L Pulse Rate 70 70 79 Respiratory Rate 20 20 20 Blood Pressure 121/62 Pulse Oximetry 96 100 02/08/21 22:30 02/09/21 00:00 02/09/21 01:18 Temperature Pulse Rate 88 89 64 Respiratory Rate 20 Blood Pressure Pulse Oximetry 96 02/09/21 01:24 02/09/21 04:00 02/09/21 06:00 Temperature 36.1 C L Pulse Rate 64 68 92 Respiratory Rate 20 20 Blood Pressure 116/93 H Pulse Oximetry 100 Intake/Output Intake/Output: Intake & Output 02/06/21 02/07/21 02/08/21 02/09/21 23:59 23:59 23:59 23:59 Intake Total 2190 1860 965 500 Output Total 3400 3400 700 300 Balance -1210 -1540 265 200 Meds/Results Medications: Active Medications Generic Name Dose Route Start Last Admin Trade Name Freq PRN Reason Stop Dose Admin Albuterol 2.5 mg 02/05/21 11:28 Albuterol Sulfate Neb 2.5 Mg/0.5 Ml Inh INHALATION Q6HRT PRN Shortness Of Breath Amlodipine Besylate 10 mg 02/07/21 09:00 02/08/21 10:06 Amlodipine Besylate 5 Mg Tablet PO 10 mg DAILY EMIR Administration Atorvastatin Calcium 40 mg 02/06/21 09:00 02/08/21 10:06 Atorvastatin 40 Mg Tablet PO 40 mg DAILY EMIR Administration Bisacodyl 10 mg 02/07/21 08:08 Bisacodyl 10 Mg Suppository RECTAL QAM PRN Constipation Budesonide/Formoterol Fumarate 2 puff 02/05/21 20:00 02/08/21 20:32 Budesonide/Formoterol (*Sp) 160-4.5 Mcg 6 Gm Inh INHALATION 2 puff Q12HRT EMIR Administration Dextrose 12.5 gm 02/05/21 11:26 Dextrose 50% 25 Gm/50 Ml Syringe IV PUSH PRN PRN Hypoglycemia Protocol Ezetimibe 10 mg 02/07/21 09:00 02/08/21 10:06 Ezetimibe 10 Mg Tablet PO 10 mg DAILY EMIR Administration Furosemide 40 mg 02/06/21 09:00 04
[2021-02-09] MEDS: BUDESONIDE/FORMOTEROL (*SP) 160-4.5 MCG 6 GM INH 2 PUFF INHALATION (08:11)
[2021-02-09 08:28] LABS: Glucose Point of Care 136 (65-105)
--- NOTE | 2021-02-09 08:44 | WPDANESPN ---
Anes - Prog Note Post-Op Date/Time: 02/09/21 08:44 Cardiovascular status: normal Respiratory status: normal Airway patency: baseline Mental status: baseline Post-Op hydration status: normal Vital Signs: Last Vital Signs Temp 36.1 C L 02/09/21 06:00 Pulse 77 02/09/21 08:27 Resp 16 02/09/21 08:27 BP 116/93 H 02/09/21 06:00 Pulse Ox 91 02/09/21 08:15 Pain Score (VAS): 11/08 I/O: Intake & Output 02/08/21 02/09/21 02/09/21 23:59 07:59 15:59 Intake Total 550 500 Output Total 300 Balance 550 200 Laboratory Tests 02/09/21 05:41 02/09/21 05:41 02/08/21 02/08/21 02/08/21 05:13 12:04 13:31 WBC RBC Hgb Hct MCV MCH MCHC RDW Plt Count MPV Sodium Potassium Chloride Carbon Dioxide Anion Gap BUN Creatinine Estim Creat Clear Calc Estimated GFR Glucose POC Capillary Glucose 138 H 112 H Calcium Magnesium Total Bilirubin AST ALT Alkaline Phosphatase NT-Pro-B Natriuret Pep 282 H Total Protein Albumin 02/08/21 02/08/21 02/09/21 17:14 21:34 05:41 WBC 13.8 H RBC 3.64 L Hgb 7.7 L Hct 26.6 L MCV 73.1 L MCH 21.2 L MCHC 28.9 L RDW 18.9 H Plt Count 326 MPV 10.7 H Sodium Potassium Chloride Carbon Dioxide Anion Gap BUN Creatinine Estim Creat Clear Calc Estimated GFR Glucose POC Capillary Glucose 259 H 98 Calcium Magnesium Total Bilirubin AST ALT Alkaline Phosphatase NT-Pro-B Natriuret Pep Total Protein Albumin 02/09/21 02/09/21 02/09/21 05:41 06:10 08:03 WBC RBC Hgb Hct MCV MCH MCHC RDW Plt Count MPV Sodium 138 Potassium 3.4 Chloride 98 Carbon Dioxide 39 H Anion Gap 1 L BUN 20 H Creatinine 1.10 H Estim Creat Clear Calc 66 Estimated GFR > 60 Glucose 151 H POC Capillary Glucose 132 H 136 H Calcium 8.8 Magnesium 1.9 Total Bilirubin 0.4 AST 32 ALT 8 Alkaline Phosphatase 129 H NT-Pro-B Natriuret Pep Total Protein 8.0 Albumin 3.7 Post-procedural complaints: none Patient Feedback: Patient satisfied with anesthetic care.
[2021-02-09] MEDS: amLODIPine BESYLATE 5 MG TABLET 10 MG PO (09:09)
[2021-02-09] MEDS: POLYSACCHARIDE IRON COMPLEX 150 MG CAPSULE PO (09:09)
[2021-02-09] MEDS: POTASSIUM CHLORIDE 20 MEQ TABLET 40 MEQ PO (09:09)
[2021-02-09] MEDS: ATORVASTATIN 40 MG TABLET PO (09:10)
[2021-02-09] MEDS: hydroCHLOROthiazide 12.5 MG CAPSULE PO (09:10)
[2021-02-09] MEDS: EZETIMIBE 10 MG TABLET PO (09:10)
[2021-02-09] MEDS: PANTOPRAZOLE 40 MG TABLET PO (09:10)
[2021-02-09] MEDS: FUROSEMIDE INJ 40 MG/4 ML VIAL IV PUSH (09:10)
[2021-02-09] MEDS: polyethylene glycoL 3350 17 GM POWD.PACK PO (09:13)
--- NOTE | 2021-02-09 10:23 | PM.PNPUL ---
Progress Note: A&P Assessment and Plan (1) Chronic hypoxemic respiratory failure: Code(s): J96.11 - Chronic respiratory failure with hypoxia Status: Acute Assessment and Plan: 02/08 Patient with hypoxemic respiratory failure from COPD, GUANACO and morbid obesity. At baseline patient wears 4 L with rest and 5 L with an Oxymizer with ambulation. Today I have decreased patient to 4 L at rest which is her baseline and her saturations currently are 97%. 02/09 sats on 4 L 91-94% (2) Obstructive sleep apnea: Code(s): G47.33 - Obstructive sleep apnea (adult) (pediatric) Status: Acute Assessment and Plan: 02/08 Patient with obstructive sleep apnea and COPD requiring BiPAP 10/05 with 6 L bleed in at night. This was ordered in the Pulmonary Clinic after her visit on 12/31 through [id number]. At this time nothing has been set up and we are in the process of calling the [employer] to find out what the delay is. If her home machine can be delivered to the hospital I will place her on 10/05 with 6 L bleed in at night in the hospital. 02/09 Waiting for set up of 10/05 with 6 L bleed in per [id number]. This should not slow her discharge and can be done through our clinic. (3) COPD (chronic obstructive pulmonary disease): Qualifiers: COPD type: unspecified COPD Qualified Code(s): J44.9 - Chronic obstructive pulmonary disease, unspecified Code(s): J44.9 - Chronic obstructive pulmonary disease, unspecified Status: Chronic Assessment and Plan: 02/08 At home patient is maintained on Symbicort 160-4.5 at 2 puffs b.i.d. and long-acting muscarinic antagonist. She is currently on the Symbicort and I will add tiotroprium 0.5 mg neb Q 6. today. I see no evidence of pneumonia or tracheobronchitis and do not feel antibiotics are needed at this time. Patient is without wheezing and I do not feel there is a need for oral or systemic steroids at this time. Suitable for discharge today: Symbicort 160/4.5 at 2 puffs BID Incruse ellipta 62.5 at 1 puff Q day rescue albuterol 2 puffs Q 4 H PRN SOB or wheezing Oxygen 4 L at rest and 5 L with oximizer with ambulation BiPAP 10/05 with 6 L bleed in when sleeps Follow up pulmonary 3 weeks. She needs outpatient CT scan March 2021 to follow her pulmonary nodules. Discussed with Dr. Granados. (4) Pulmonary nodules: Code(s): R91.8 - Other nonspecific abnormal finding of lung field Status: Acute Assessment and Plan: patient with history of RUL nodule stable since 09/08/2019. Repeat outpatient CT 09/08/2021 to document stability for 2 years. CTA 02/06/2020 CT COMPARISON: Chest CT 07/12/2020 FINDINGS: There is mild emphysema. There is a chronic 12 mm nodule in right upper lobe containing fat, consistent with a hamartoma. There is diffuse smooth septal thickening in the lungs. There are patchy groundglass opacities in all lobes with a lower lobe predominance. There are mild airspace opacities in basilar right lower lobe. There are small pleural effusions. Cardiomegaly is noted. There are coronary artery calcifications. No pericardial effusion. The central pulmonary arteries are enlarged, consistent with coronary arterial hypertension. There is no pulmonary embolus. There is chronic mediastinal and bilateral hilar lymphadenopathy. For example, a 2.6 x 2.1 cm right hilar lymph node measured 2.9 x 1.9 cm on 09/08/2019. There are thyroid nodules measuring up to 11 mm, likely not clinically significant. There is mild thoracic spondylosis. IMPRESSION: 1. No pulmonary embolus. 2. Diffuse lung disease, consistent moderate pulmonary edema. 3. Small pleural effusions. 4. Mild emphysema. 5. Cardiomegaly. 6. Chronic mediastinal and bilateral hilar lymphadenopathy, likely reactive 10/13/2020 PET IMPRESSION: 1. 1.3 cm right upper lobe nodule without FDG uptake in with macroscopic fat attenuation on CT images consistent with a benign hamartoma.
[2021-02-09 12:15] LABS: Glucose Point of Care 140 (65-105)
--- NOTE | 2021-02-09 13:03 | PM.DS ---
DS: Admitting Diagnosis Admitting Diagnosis Admitting Diagnosis: Chief Complaint: sob DS: Discharge Diagnosis Discharge Diagnosis (1) Acute on chronic respiratory failure with hypoxemia: Code(s): J96.21 - Acute and chronic respiratory failure with hypoxia Status: Acute Assessment and Plan: The patient is chronically on 4 L per nasal cannula at baseline. She is currently on 6 L per nasal cannula. The patient stated that she did test positive for mild GUANACO but has not received her CPAP as of yet. Patient also has pulmonary hypertension and severe restrictive lung disease. She has hypoventilation obesity. She also has COPD and congestive heart failure. Her CTA was read as no pulmonary embolism. She does have diffuse lung disease consistent with moderate pulmonary edema. The patient had been given Lasix in the emergency room and is currently on IV Lasix b.i.d.. She is also being monitored for covid 19. She is placed in airborne and droplet and contact isolation. She was seen by the process maintenance technician. She could be hypoxic due to the fact that her hemoglobin is low as well. However her chest x-ray is more suggestive of congestive heart failure. 02/06/21 pt reports that she is feeling better O2 requirements down from 10L to 6L cont current care 02/07/21 remains stable with increased O2 requirements from baseline. process maintenance technician following 02/08/21 17:24 Patient with restrictive lung disease is transferred out of ICU today patient is seen pulmonology, patient states feeling better compared to when she arrived the phlegm has also improved, denies any fever or chills, and was seen by GI today and had a EGD which showed some gastritis recommended to continue Protonix 40 mg once for 1 month, patient is clinically stable continue to monitor and further recommendation to follow (2) Acute on chronic blood loss anemia: Code(s): D62 - Acute posthemorrhagic anemia Status: Acute Assessment and Plan: 02/07/21 pt received PRBCs at admission Consult placed to Gastroenterology Plan for EGD tomorrow 02/08/21 Patient had a EGD today it showed gastritis, GI recommended Protonix 40 mg q.day (3) Congestive heart failure: Code(s): I50.9 - Heart failure, unspecified Status: Acute Assessment and Plan: The patient shows pulmonary edema on her chest x-ray and she has some mild edema to her lower extremities. Continue with IV Lasix. ECHO pending 02/06/2021 Echocardiogram reveals right-sided heart failure with pulmonary arterial hypertension and valvulopathy 02/07/2021 Significant cardiomyopathy Will address GI bleeding 1st and then follow-up with cardiology (4) COPD (chronic obstructive pulmonary disease): Qualifiers: COPD type: unspecified COPD Qualified Code(s): J44.9 - Chronic obstructive pulmonary disease, unspecified Code(s): J44.9 - Chronic obstructive pulmonary disease, unspecified Status: Chronic Assessment and Plan: Resume her home inhalers. She is being seen by Dr. Boyd outpatient. 02/06/2021 Patient denies feeling as if she is having an acute exacerbation of her underlying COPD (5) Lung nodule: Code(s): R91.1 - Solitary pulmonary nodule Status: Chronic Assessment and Plan: She has had a previous PET scan which shows that her lung nodules are benign. (6) Hypertension: Qualifiers: Hypertension type: essential hypertension Qualified Code(s): I10 - Essential (primary) hypertension Code(s): I10 - Essential (primary) hypertension Status: Acute Assessment and Plan: Hydrochlorothiazide is currently on hold. 02/06/2021 Blood pressure is At goal Continue current care 02/07/21 remains at goal (7) Obstructive sleep apnea: Code(s): G47.33 - Obstructive sleep apnea (adult) (pediatric) Status: Acute Assessment and Plan: Patient stated that she is awaiting her CPAP machine. 02/07/20
== END 2021-02-09 14:40 | disposition home or self-care (01) | DRG 291 ==
LOC: ANHED 08:52 → ANHICU 11:26 → ANH3MEDSUR 02-08 10:21 → ANHICU 02-10 15:32
PROVIDERS: Internal Medicine; Internal Medicine Gastroenterology; Nurse Practitioner; Admitting Provider Family Medicine; Emergency Provider General Practice; PCP Internal Medicine Infectious Disease; Visit Provider Family Medicine
PROC: 0DJ08ZZ Inspection of Upper Intestinal Tract, Via Natural or Artificial Opening Endoscopic (ICD-10-PCS; CPT 43235; principal; 2021-02-08 13:00)
DX: I11.0 Hypertensive heart disease with heart failure (principal); J96.21 Acute and chronic respiratory failure with hypoxia; I50.31 Acute diastolic (congestive) heart failure; E66.2 Morbid (severe) obesity with alveolar hypoventilation; Z68.42 Body mass index [BMI] 45.0-49.9, adult; D62 Acute posthemorrhagic anemia; K29.00 Acute gastritis without bleeding; Z20.822 Contact with and (suspected) exposure to COVID-19; E11.65 Type 2 diabetes mellitus with hyperglycemia; J44.9 Chronic obstructive pulmonary disease, unspecified; R91.1 Solitary pulmonary nodule; E78.5 Hyperlipidemia, unspecified; I27.29 Other secondary pulmonary hypertension; Z87.891 Personal history of nicotine dependence; Z90.49 Acquired absence of other specified parts of digestive tract; Z99.81 Dependence on supplemental oxygen; K59.00 Constipation, unspecified; E87.8 Other disorders of electrolyte and fluid balance, not elsewhere classified; I42.9 Cardiomyopathy, unspecified
CPT/HCPCS: 36415; 36430; 36600; 71045; 71275; 80048; 80053; 82375; 82805; 82948; 83036; 83050; 83605; 83735; 83880; 84132; 84145; 84484; 85014; 85018; 85025; 85027; 85380; 85610; 85730; 86140; 86850; 86900; 86901; 86923; 87040; 87081; 93005; 93306; 94640; 94660; 96374; 97161; 97165; 99291; A9270; C9113; C9803; J1815; J1940; J2704; J3475; J7050; J7120; P9016; Q9967; U0003; U0005

== ENCOUNTER 2021-04-07 11:15 | Inpatient (IN) | payer MEDICARE, MEDICAID, SELFPAY ==
[2021-04-07] VITALS (31 sets, daily range): BP systolic 104–140; BP diastolic 46–88; PULSE 64–93; RESP 12–22; TEMP 36.3–36.8; O2SAT 88–100; BMI 380.9; BMI 41.4
--- NOTE | ~2021-04-07 | XR_ITS ---
XR chest 2V 04/07/2021 12:28 Indication: Shortness of breath. Hypertension. COPD. Procedure: AP and lateral views of the chest Comparison: Comparison to multiple prior studies sequentially, with oldest reviewed study dated 07/18. Findings: Cardiomegaly with mild interstitial edema. No significant pleural effusion. The lungs are h yperinflated which is consistent with, but not diagnostic of chronic obstructive pulmonary disease. N o pneumothorax. No acute osseous abnormality. Impression: 1: Cardiomegaly with mild interstitial edema. Reviewed, dictated and finalized at location B. Impression: 1: Cardiomegaly with mild interstitial edema.
--- NOTE | ~2021-04-07 | XR_ITS ---
XR chest 1V portable 04/15/2021 05:29 Indication: Shortness of breath Procedure: AP portable chest Comparison: Comparison to multiple prior studies sequentially, with oldest reviewed study dated 06/2021. Findings: Cardiomegaly with developing interstitial edema. No significant pleural effusion. No pneumo thorax. No acute osseous abnormality. Impression: 1: Cardiomegaly with developing interstitial edema. Reviewed, dictated and finalized at location A. Impression: 1: Cardiomegaly with developing interstitial edema.
[2021-04-07 11:54] LABS: Alveolar/Arterial O2 Gradient 227.6 mmHg; Base Excess ABG -0.3 mEq/l (+/-2.0); Carboxyhemoglobin 1.3 % THb (0-2.0); Fractional Inspired Oxygen 44 %; HCO3 ABG 23.9 mEq/l (22.0-26.0); Methemoglobin ABG 0.3 %THb (0-1.5); Oxygen Content ABG 7.5 %vol (16.0-22.0); Oxyhemoglobin 73.7 % THb (90.0-100.0); PCO2 ABG 36.6 mmHg (35.0-45.0); PO2 FiO2 Ratio Arterial Blood 1.01 %; Reduced Hemoglobin 24.7 %THb (0-5.0); pH ABG 7.433 (7.350-7.450)
[2021-04-07 11:55] LABS: Device NASAL CANNULA; Oxygen Saturation ABG 82.1 % (95.0-100.0); PO2 ABG 44.4 mmHg (80.0-100.0); Site Drawn LEFT BRACHIAL; Total Hemoglobin 7.2 g/dL (12.0-18.0)
[2021-04-07 12:46] LABS: Basophils Percent Auto 0.2 % (0.2-1.2); Eosinophils Percent Auto 0.4 % (0-4.4); Immature Granulocyte Absolute 0.04 K/mm3 (0.00-0.031); Immature Granulocyte Percent A 0.4 % (0-0.5); Immature Platelet Fraction Pct 6.1 % (0.9-11.2); Lymphocytes Absolute Auto 1.07 K/mm3 (0.9-3.2); Mean Corpuscular HGB Conc 27.4 g/dl (32-36); Mean Corpuscular Hemoglobin 18.3 pg (26-34); Mean Corpuscular Volume 66.7 fl (80-100); Mean Platelet Volume 10.3 fl (7.4-10.4); Monocytes Absolute Auto 0.4 K/mm3 (0.1-0.6); Monocytes Percent Auto 4.4 % (2.6-8.5); Neutrophils Absolute Auto 8.2 K/mm3 (1.3-6.7); Neutrophils Percent Auto 83.6 % (45.5-73.1); Platelet Count Result 329 k/mm3 (150-375); Red Blood Count 3.45 M/mm3 (4.2-5.4); Red Cell Distribution Width 21.3 % (11.5-14.5); White Blood Count 9.8 K/mm3 (4.5-10.0)
[2021-04-07 12:59] LABS: Hemoglobin 6.3 g/dL (12.0-15.0); Platelet Estimate Adequate (Adequate)
[2021-04-07 13:00] LABS: Anisocytosis 1+ (NORMAL); Hypochromasia 2+ (NORMAL); Microcytosis 1+ (NORMAL); Ovalocytes 1+ (NORMAL)
[2021-04-07 13:02] LABS: Anion Gap 11 mmol/L (8-16); Blood Urea Nitrogen 16 mg/dL (7-17); Calcium 9.3 mg/dL (8.4-10.2); Carbon Dioxide 24 mmol/L (22-30); Chloride 108 mmol/L (98-107); Estimated CRCL calculation 532 ml/min; Estimated Glomerular Filt Rate > 60; Glucose 113 mg/dL (65-105); Potassium 3.8 mmol/L (3.4-5.0); Sodium 143 mmol/L (137-145)
[2021-04-07 13:09] LABS: NT Pro B Type Natriuretic Pept 1830 pg/mL (5-100)
--- NOTE | 2021-04-07 13:12 | ED.SOB ---
HPI - SOB/Dyspnea General Chief Complaint: Shortness of Breath/Dyspnea Stated Complaint: Resp Precautions Time Seen by Provider: 04/07/21 11:27 History of Present Illness HPI Narrative: Patient is a 61-year-old female who presents ER with shortness of breath. Patient with history of COPD and wears 4 L chronically. 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 She has been turned up to 6 L and is satting in the low 90s on occasion. Patient reports shortness of breath has been worsening the last couple of days. No sinus congestion or sore throat or productive cough. No fevers or chills or sweats. She has not been using a nebulizer treatments. Related Data Home Medications Medication Instructions Recorded Confirmed aspirin [Aspir-81] 81 mg PO DAILY 09/08/19 02/05/21 atorvastatin 40 mg PO DAILY 09/08/19 02/05/21 ezetimibe 10 mg PO DAILY 09/08/19 02/05/21 metformin 500 mg PO DAILY 09/08/19 02/05/21 polysaccharide iron complex 150 mg PO BID 07/11/20 02/05/21 [Poly-Iron] amlodipine 10 mg PO DAILY 02/05/21 02/05/21 hydrochlorothiazide 12.5 mg PO EVERY OTHER DAY 02/05/21 02/05/21 metformin mg PO 04/07/21 polysaccharide iron complex mg 04/07/21 [Poly-Iron] potassium chloride meq 04/07/21 Allergies Allergy/AdvReac Type Severity Reaction Status Date / Time Penicillins Allergy Hives Verified 04/07/21 11:32 Sulfa (Sulfonamide Allergy Itching Verified 04/07/21 11:32 Antibiotics) Review of Systems Review of Systems: All systems reviewed & are unremarkable except as noted in HPI and below Constitutional: Constitutional: Denies chills, Reports fatigue, Denies fever(s) and Reports weakness ENT: Denies nasal congestion and Denies sore throat Cardiovascular: Cardiovascular: Denies chest pain and Denies radiating jaw, neck or arm pain Respiratory: Respiratory: Denies chest congestion, Denies cough, Reports dyspnea and Denies wheezing Gastrointestinal: Gastrointestinal: Denies abdominal pain, Denies nausea and Denies vomiting FOR[facility], [facility] Past Medical History Medical History (Updated 04/07/21 @ 18:53 by Pavan Suresh MD) Acute on chronic blood loss anemia Adrenal mass Anemia Chronic hypoxemic respiratory failure COPD (chronic obstructive pulmonary disease) Diabetes mellitus Hyperlipidemia Hypertension Lung nodule 11 mm Tobacco abuse 35 pack year, quit Aug 2019. Surgical History Surgical History (Updated 04/07/21 @ 18:15 by Sarah London NP) H/O section x3 H/O colonoscopy with polypectomy H/O esophagogastroduodenoscopy History of appendectomy Hx of cholecystectomy Family History Family History Grandparent Congestive heart failure Mother HTN (hypertension) with goal to be determined Hyperlipidemia Cancer Sibling Age: 54 HTN (hypertension) with goal to be determined Asthma Lupus Sibling Age: 51 Diabetes mellitus Heart disease Social History Social History (Updated 04/07/21 @ 18:18 by Sarah London NP) Social History: The patient typically smoked 1 pack a cigarettes a day for 35 years. she said she stop smoking August of 2019. She has 3 children. She is unemployed at this time. She does not have a durable power senior attorney. But wants to be a full code. She became disabled many years ago 2007 when she injured her back. 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 She lives with her friend Smoking packs per day: 0.5 Smoking cigarettes per day: 10.0 Years smoked: 25 Smoking pack-years: 12.50 Smoking status: Former smoker Smoking end date: 10/30/18 Alcohol intake: former Substance use: former Additional living arrangements comments: Lives with her sister. 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
--- NOTE | 2021-04-07 13:34 | PCRCNOTE ---
Addendum entered by Greta Jean Baptiste, [employer] HEMMER 04/07/21 14:53: Titrated to 55 lpm, Fio2 60% Original Note: PT. STARTED ON HIGH FLOW THERAPY. 60LPM, 60% FIO2.
--- NOTE | 2021-04-07 13:43 | PC.NURSE ---
placed on high flow o2 by resp therapy: 60 liters with 70 fio2
[2021-04-07] MEDS: SODIUM CHLORIDE 0.9% IV 250 ML 30 ML IV CONT (17:15)
--- NOTE | 2021-04-07 17:25 | ADMGEN ---
This patient, Maura Hill, was admitted to Intensive Care Unit-2. Patient/family oriented to hospital policies and general routines including ID bracelet, bed and alarms, visiting hours, pain management, procedures, bathroom and other care routines, personal items, smoking policy, room service/diet, and visiting hours. Information on how to activate the Rapid Response Team has been discussed. Patient/Family are encouraged to report perceived risks to care and to ask questions if they do not understand what they are told or what they should do.
--- NOTE | 2021-04-07 18:02 | PM.IMHP ---
H&P: HPI History of Present Illness Date/Time: 04/07/21 18:02 this is a 61-year-old female who lives in her own home. She came to the emergency room due to shortness of breath. She does have a history of COPD and sleep apnea. The patient wears oxygen at 4 L chronically. She has quit smoking over year ago. 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 The patient does have a senior telecommunications specialist but is at [facility]. The patient stated she ran out of the medication for anemia. She had no fever or chills or cough. 6.3 and hematocrit 23.0. MCV 66.7. The patient is being transfused as cardiomegaly with mild interstitial edema. The patient is being admitted to observation status on 04/07/2021. Side note >>>> The patient had previously been discharged from here on 02/09/2021 where she was in acute respiratory failure as well. Patient was found have mild obstructive sleep apnea and was waiting for CPAP machine. She now has that machine. The patient also received a blood transfusion at that time. She was seen by Gi at her last visit and she received an EGD . She was found to have erosive gastritis and was told to take PPI for 4 week. Please see discharge summary this is her report from her discharge summary (She did have an EGD showing acute gastric ulcer and esophageal ring status post dilatation colonoscopy showing internal hemorrhoids. Anemia could be related to gastric ulcer. Required oral iron. ) Chief Complaint: Hypoxic Review of Systems Review of Systems: All systems reviewed & are unremarkable except as noted in HPI and below Constitutional: Constitutional: Reports as per HPI and Reports no additional constitutional complaints Eyes: Eyes: Reports as per HPI and Reports no additional eye complaints ENT: Reports system reviewed and no additional complaints, except as documented and Reports Normal hearing present Cardiovascular: Cardiovascular: Reports no additional cardiovascular complaints Respiratory: Respiratory: Reports no additional respiratory complaints and Reports no additional respiratory complaints Gastrointestinal: Gastrointestinal: Reports as per HPI and Reports no additional gastrointestinal complaints Musculoskeletal: Musculoskeletal: Reports no additional musculoskeletal complaints Integumentary/Breasts: Skin/Breast: Reports system reviewed and no additional complaints, except as docu and Reports as per HPI Neurologic: Reports system reviewed and no additional complaints, except as documented, Reports as per HPI and Reports Normal hearing present Psychiatric: Psychiatric: Reports no additional psychiatric complaints and Reports as per HPI Endocrine: Endocrine: Reports no additional endocrine complaints Hematologic/Lymphatic: Hematologic/Lymphatic: Reports no additional hematologic/lymphatic complaints Allergic/Immunologic: Allergic/Immunologic: Reports no additional allergic/immunologic complaints [facility], [facility] Past Medical History Medical History Acute on chronic blood loss anemia Adrenal mass Anemia Chronic hypoxemic respiratory failure COPD (chronic obstructive pulmonary disease) Diabetes mellitus Hyperlipidemia Hypertension Lung nodule 11 mm Tobacco abuse 35 pack year, quit Aug 2019. Surgical History Surgical History (Updated 04/07/21 @ 18:15 by Sarah London NP) H/O section x3 H/O colonoscopy with polypectomy H/O esophagogastroduodenoscopy History of appendectomy Hx of cholecystectomy Family History Family History Grandparent Congestive heart failure Mother HTN (hypertension) with goal to be determined Hyperlipidemia Cancer Sibling Age: 54 HTN (hypertension) with goal to be determined Asthma Lupus Sibling Age: 51 Diabetes mellitus Heart disease Social Hist
[2021-04-07] MEDS: FUROSEMIDE INJ 40 MG/4 ML VIAL 20 MG IV PUSH (19:28)
[2021-04-07] MEDS: PANTOPRAZOLE SODIUM IV 40 MG VIAL IV PUSH (19:31)
[2021-04-07 19:47] LABS: Glucose Point of Care 187 mg/dl (65-105)
[2021-04-07] MEDS: IPRATROPIUM BR 0.02% INH SOLN 0.5 MG/2.5 ML VIAL INHALATION (20:22)
[2021-04-07] MEDS: SODIUM CHLORIDE 0.9% IV 100 ML 10 ML (21:19)
[2021-04-08] VITALS (26 sets, daily range): BP systolic 105–134; BP diastolic 62–76; PULSE 67–80; RESP 13–20; TEMP 36.3–36.9; O2SAT 87–98
[2021-04-08 01:04] LABS: Hematocrit 25.6 % (37.0-47.0); Hemoglobin 7.4 g/dL (12.0-15.0)
[2021-04-08] MEDS: IPRATROPIUM BR 0.02% INH SOLN 0.5 MG/2.5 ML VIAL INHALATION ×4 (02:35→21:01)
[2021-04-08 04:31] LABS: Basophils Percent Auto 0.4 % (0.2-1.2); Eosinophils Absolute Auto 0.1 K/mm3 (0-0.3); Eosinophils Percent Auto 0.6 % (0-4.4); Hemoglobin 7.4 g/dL (12.0-15.0); Immature Granulocyte Absolute 0.03 K/mm3 (0.00-0.031); Immature Granulocyte Percent A 0.3 % (0-0.5); Immature Platelet Fraction Pct 5.5 % (0.9-11.2); Lymphocytes Absolute Auto 1.09 K/mm3 (0.9-3.2); Lymphocytes Percent Auto 10.2 % (18.3-44.2); Mean Corpuscular HGB Conc 28.5 g/dl (32-36); Mean Corpuscular Hemoglobin 20.1 pg (26-34); Mean Corpuscular Volume 70.5 fl (80-100); Mean Platelet Volume 9.9 fl (7.4-10.4); Monocytes Absolute Auto 0.6 K/mm3 (0.1-0.6); Monocytes Percent Auto 5.1 % (2.6-8.5); Neutrophils Absolute Auto 8.9 K/mm3 (1.3-6.7); Neutrophils Percent Auto 83.4 % (45.5-73.1); Platelet Count Result 287 k/mm3 (150-375); Red Blood Count 3.69 M/mm3 (4.2-5.4); Red Cell Distribution Width 23.5 % (11.5-14.5); White Blood Count 10.7 K/mm3 (4.5-10.0)
[2021-04-08 04:42] LABS: Alanine Aminotransferase 6 U/L (4-35); Albumin Level 3.5 g/dL (3.5-5.1); Alkaline Phosphatase 110 U/L (38-126); Anion Gap 11 mmol/L (8-16); Aspartate Amino Transferase 27 U/L (14-36); Bilirubin,Total 0.8 mg/dL (0.2-1.3); Blood Urea Nitrogen 13 mg/dL (7-17); Calcium 9.1 mg/dL (8.4-10.2); Carbon Dioxide 26 mmol/L (22-30); Chloride 108 mmol/L (98-107); Estimated CRCL calculation 77 ml/min; Estimated Glomerular Filt Rate > 60; Glucose 99 mg/dL (65-105); Magnesium 1.9 mg/dL (1.6-2.3); Potassium 3.4 mmol/L (3.4-5.0); Sodium 145 mmol/L (137-145)
[2021-04-08 05:56] LABS: Anisocytosis 2+ (NORMAL); Hypochromasia 2+ (NORMAL); Platelet Estimate Adequate (Adequate)
[2021-04-08 07:46] LABS: Glucose Point of Care 92 mg/dl (65-105)
[2021-04-08] MEDS: UMECLIDINIUM BROMIDE 62.5 MCG ELLIPTA 1 PUFF INHALATION (07:52)
[2021-04-08] MEDS: POTASSIUM CHLORIDE 10 MEQ TABLET.ER PO ×2 (08:42→18:31)
[2021-04-08] MEDS: FUROSEMIDE INJ 40 MG/4 ML VIAL 20 MG IV PUSH ×2 (08:43→18:31)
[2021-04-08] MEDS: POLYSACCHARIDE IRON COMPLEX 150 MG CAPSULE PO ×2 (08:43→18:31)
[2021-04-08] MEDS: PANTOPRAZOLE SODIUM IV 40 MG VIAL IV PUSH ×2 (08:43→21:22)
[2021-04-08] MEDS: ATORVASTATIN 40 MG TABLET PO (08:43)
[2021-04-08 10:04] LABS: Hematocrit 27.1 % (37.0-47.0); Hemoglobin 7.7 g/dL (12.0-15.0)
[2021-04-08 11:54] LABS: Glucose Point of Care 121 mg/dl (65-105)
--- NOTE | 2021-04-08 13:04 | PDONCCN ---
HPI - Date of Consult Date/Time: 04/08/21 13:04 Requesting Physician: Kun Granados MD Primary Care Provider: Tessy MurilloMendez - Consult Narrative Reason for consult: Microcytic anemia. Narrative: Maura Hill is a 61 year old female came into the hospital with increasing shortness of breath. She has a history of COPD and sleep apnea. She is morbidly obese. Patient has been on 4 L of oxygen at home. Labs showed hemoglobin of 6.3 with MCV of 66.7. She denies any bleeding but does have some dark stool as she has been taking oral iron. Patient was discharged from the hospital on February 09 with acute respiratory failure. At that time she received blood transfusion. She had EGD done previously that showed erosive gastritis and was started on PPI. Colonoscopy showed internal hemorrhoids. She has been taking oral iron twice a day since her discharge. Now she came into the hospital with worsening of her breathing. Her hemoglobin was found to be 6.3 and received 2 units of packed red blood cell. She denies any diarrhea constipation and nausea vomiting. She has some abdominal discomfort. Review of Systems - Review of Systems All systems reviewed & are unremarkable except as noted in HPI and bel - Neurologic Reports system reviewed and no additional complaints, except as documented, Reports hearing normal, Reports weakness PMFSH Medical History: Medical History (Last Reviewed 04/07/21 @ 18:14 by Sarah London NP) Acute on chronic blood loss anemia Adrenal mass Anemia Chronic hypoxemic respiratory failure COPD (chronic obstructive pulmonary disease) Diabetes mellitus Hyperlipidemia Hypertension Lung nodule 11 mm Tobacco abuse 35 pack year, quit Aug 2019. Surgical History: Surgical History (Last Updated 04/07/21 @ 18:15 by Sarah London NP) H/O section x3 H/O colonoscopy with polypectomy H/O esophagogastroduodenoscopy History of appendectomy Hx of cholecystectomy Family History: Family History (Last Reviewed 04/07/21 @ 18:17 by Sarah London NP) Grandparent Congestive heart failure Mother HTN (hypertension) with goal to be determined Hyperlipidemia Cancer Sibling Age: 54 HTN (hypertension) with goal to be determined Asthma Lupus Sibling Age: 51 Diabetes mellitus Heart disease - Social History Social History: Social History (Last Updated 04/07/21 @ 18:18 by AMANUEL Gr Gender Identity: Gender identity (if verbalized by the patient): Female Alcohol Use: Alcohol intake: former Substance Use: Substance use: former Others: Spiritual care concerns: No Agree to blood products: Yes Smoking Status: Smoking status: Former smoker Smoking end date: 10/30/18 Approximate Smoking End Date: 10/30/18 Smoking Pack-years: Smoking packs per day: 0.5 Smoking cigarettes per day: 10.0 Years smoked: 25 Smoking pack-years: 12.50 Meds Home Medications Medication Instructions Recorded Confirmed Type aspirin [Aspir-81] 81 mg PO DAILY 09/08/19 04/07/21 History atorvastatin 40 mg PO DAILY 09/08/19 04/07/21 History ezetimibe 10 mg PO DAILY 09/08/19 04/07/21 History albuterol sulfate 2 puff INHALATION QID #6.7 gm 09/12/19 04/07/21 Rx polysaccharide iron complex 150 mg PO BID 07/11/20 04/07/21 History [Poly-Iron] umeclidinium 62.5 mcg/actuation 1 inhalation INHALATION Q24H #30 07/24/20 04/07/21 Rx blister powder for inhalation each amlodipine 10 mg PO DAILY 02/05/21 04/07/21 History budesonide-formoterol [Symbicort] 2 puff INHALATION Q12HRT #10.2 g 02/09/21 04/07/21 Rx furosemide [Lasix] 20 mg PO BID #60 tablet 02/09/21 04/07/21 Rx pantoprazole 40 mg PO QAM #30 tablet 02/09/21 04/07/21 Rx potassium chloride 8 meq PO BID #60 cap 02/09/21 04/07/21 Rx metformin 500 mg PO DAILY 04/07/21 04/07/21 History polyethylene glycol 3350 [Miralax] 17 g PO QAM PRN 04/07/21 04/07/21 History All
[2021-04-08 13:35] LABS: Hematocrit 27.5 % (37.0-47.0); Hemoglobin 7.7 g/dL (12.0-15.0)
[2021-04-08 13:58] LABS: Iron 20 ug/dL (37-170)
[2021-04-08 14:11] LABS: Percent Iron Saturation 5 % (20-50)
--- NOTE | 2021-04-08 16:05 | PM.IMPN ---
Progress Note: A&P Assessment and Plan (1) Acute on chronic respiratory failure with hypoxemia: Code(s): J96.21 - Acute and chronic respiratory failure with hypoxia Status: Acute Assessment and Plan: The patient is currently on high flow o2 .cxr shows cardiomegaly and edema. Will change her p.o. Lasix to IV. (2) Microcytic anemia: Code(s): D50.9 - Iron deficiency anemia, unspecified Status: Acute Assessment and Plan: It looks like the patient had been on iron in the past. This is a chronic anemia. Transfused with 1 unit packed red blood cells at this time. EGD and colonoscopy her last admission please see discharge summary from 02/09/2021. Patient had ulcerative gastritis and was to continue with her PPI. (3) CHF exacerbation: Code(s): I50.9 - Heart failure, unspecified Status: Chronic Assessment and Plan: IV Lasix and continue with home medication (4) Hyperlipidemia: Qualifiers: Hyperlipidemia type: unspecified Qualified Code(s): E78.5 - Hyperlipidemia, unspecified Code(s): E78.5 - Hyperlipidemia, unspecified Status: Chronic Assessment and Plan: Continue with home medications of atorvastatin (5) COPD (chronic obstructive pulmonary disease): Qualifiers: COPD type: unspecified COPD Qualified Code(s): J44.9 - Chronic obstructive pulmonary disease, unspecified Code(s): J44.9 - Chronic obstructive pulmonary disease, unspecified Status: Chronic Assessment and Plan: Continue with inhalers from home. Dual nebs while here (6) HTN (hypertension), malignant: Code(s): I10 - Essential (primary) hypertension Status: Chronic Assessment and Plan: Continue with home medications. Home medications are not yet verified. (7) Anemia: Code(s): D64.9 - Anemia, unspecified Status: Chronic Assessment and Plan: Patient is being transfused with 1 unit packed red blood cells at this time. She is found have ulcerative gastritis. Hemoglobin 6.3. Recheck after transfusion has completed. (8) Diabetes mellitus: Qualifiers: Diabetes mellitus type: type 2 Diabetes mellitus chcf insulin use: without chcf use Diabetes mellitus complication status: with hyperglycemia Qualified Code(s): E11.65 - Type 2 diabetes mellitus with hyperglycemia Code(s): E11.9 - Type 2 diabetes mellitus without complications Status: Chronic Assessment and Plan: Accu-Cheks AC and HS check A1c if not performed at the last 3 months. 02/06/2021 A1c 6.5. (9) Erosive gastritis: Code(s): K29.60 - Other gastritis without bleeding Status: Acute Assessment and Plan: Continue with PPI Subjective Date/time seen: 04/08/21 16:05 Interval history: 61-year-old female who lives in her own home. She came to the emergency room due to shortness of breath. She does have a history of COPD and sleep apnea. pt is on high flow oxygen doing well. hb is 7 seen by oncology/ hematology md Review of Systems Review of Systems: All systems reviewed & are unremarkable except as noted in HPI and below Exam Const: General: cooperative, healthy appearing, comfortable, no acute distress, well developed, alert, awake and Physically active Nutritional Appearance: average body habitus and well nourished Orientation/consciousness: oriented to person, oriented to place, oriented to time and patient oriented x3 Limitations: no limitations Resp: Effort & Inspection: normal respiratory effort Auscultation: wheezes Cardio: Palpation: normal PMI Rate: regular rate Rhythm: regular rhythm Heart sounds: S1 normal heart sound present and S2 normal heart sound present Peripheral pulses: Peripheral pulses 2+ throughout GI: Inspection: normal to inspection Auscultation: normal bowel sounds Rectal Exam: deferred Skin: General skin exam: normal color Lesions: no lesions Rashes: no r
[2021-04-08 16:21] LABS: Glucose Point of Care 95 mg/dl (65-105)
[2021-04-08 21:34] LABS: Glucose Point of Care 106 mg/dl (65-105)
[2021-04-09] VITALS (21 sets, daily range): BP systolic 82–144; BP diastolic 56–95; PULSE 59–90; RESP 14–22; TEMP 35.9–36.4; O2SAT 91–100
[2021-04-09] MEDS: IPRATROPIUM BR 0.02% INH SOLN 0.5 MG/2.5 ML VIAL INHALATION ×4 (02:23→19:30)
[2021-04-09 04:42] LABS: Hematocrit 25.8 % (37.0-47.0); Hemoglobin 7.3 g/dL (12.0-15.0); Immature Platelet Fraction Pct 5.4 % (0.9-11.2); Mean Corpuscular HGB Conc 28.3 g/dl (32-36); Mean Corpuscular Hemoglobin 20.1 pg (26-34); Mean Corpuscular Volume 70.9 fl (80-100); Mean Platelet Volume 10.3 fl (7.4-10.4); Platelet Count Result 275 k/mm3 (150-375); Red Blood Count 3.64 M/mm3 (4.2-5.4); Red Cell Distribution Width 23.9 % (11.5-14.5); White Blood Count 10.7 K/mm3 (4.5-10.0)
[2021-04-09 04:59] LABS: Anion Gap 7 mmol/L (8-16); Blood Urea Nitrogen 14 mg/dL (7-17); Calcium 8.9 mg/dL (8.4-10.2); Carbon Dioxide 29 mmol/L (22-30); Chloride 106 mmol/L (98-107); Estimated CRCL calculation 87 ml/min; Estimated Glomerular Filt Rate > 60; Glucose 105 mg/dL (65-105); Potassium 3.6 mmol/L (3.4-5.0); Sodium 142 mmol/L (137-145)
[2021-04-09] MEDS: POTASSIUM CHLORIDE 10 MEQ TABLET.ER PO ×2 (08:00→18:31)
[2021-04-09] MEDS: UMECLIDINIUM BROMIDE 62.5 MCG ELLIPTA 1 PUFF INHALATION (08:04)
[2021-04-09] MEDS: PANTOPRAZOLE SODIUM IV 40 MG VIAL IV PUSH ×2 (08:48→20:50)
[2021-04-09] MEDS: ATORVASTATIN 40 MG TABLET PO (08:49)
[2021-04-09] MEDS: FUROSEMIDE INJ 40 MG/4 ML VIAL 20 MG IV PUSH ×2 (08:49→18:57)
[2021-04-09 08:52] LABS: Glucose Point of Care 97 mg/dl (65-105)
[2021-04-09 13:08] LABS: Glucose Point of Care 124 mg/dl (65-105)
--- NOTE | 2021-04-09 15:16 | PM.IMPN ---
Progress Note: A&P Assessment and Plan (1) Acute on chronic respiratory failure with hypoxemia: Code(s): J96.21 - Acute and chronic respiratory failure with hypoxia Status: Acute Assessment and Plan: The patient is currently on high flow o2 .cxr shows cardiomegaly and edema. Will change her p.o. Lasix to IV. (2) Microcytic anemia: Code(s): D50.9 - Iron deficiency anemia, unspecified Status: Acute Assessment and Plan: It looks like the patient had been on iron in the past. This is a chronic anemia. Transfused with 1 unit packed red blood cells at this time. EGD and colonoscopy her last admission please see discharge summary from 02/09/2021. Patient had ulcerative gastritis and was to continue with her PPI. Cont to monitor hb (3) CHF exacerbation: Code(s): I50.9 - Heart failure, unspecified Status: Chronic Assessment and Plan: IV Lasix and continue with home medication (4) Hyperlipidemia: Qualifiers: Hyperlipidemia type: unspecified Qualified Code(s): E78.5 - Hyperlipidemia, unspecified Code(s): E78.5 - Hyperlipidemia, unspecified Status: Chronic Assessment and Plan: Continue with home medications of atorvastatin (5) COPD (chronic obstructive pulmonary disease): Qualifiers: COPD type: unspecified COPD Qualified Code(s): J44.9 - Chronic obstructive pulmonary disease, unspecified Code(s): J44.9 - Chronic obstructive pulmonary disease, unspecified Status: Chronic Assessment and Plan: Continue with inhalers from home. Dual nebs while here (6) HTN (hypertension), malignant: Code(s): I10 - Essential (primary) hypertension Status: Chronic Assessment and Plan: Continue with home medications. Home medications are not yet verified. (7) Anemia: Code(s): D64.9 - Anemia, unspecified Status: Chronic Assessment and Plan: Patient is being transfused with 1 unit packed red blood cells at this time. She is found have ulcerative gastritis. Hemoglobin 6.3. Recheck after transfusion has completed. (8) Diabetes mellitus: Qualifiers: Diabetes mellitus type: type 2 Diabetes mellitus termite treater insulin use: without termite treater use Diabetes mellitus complication status: with hyperglycemia Qualified Code(s): E11.65 - Type 2 diabetes mellitus with hyperglycemia Code(s): E11.9 - Type 2 diabetes mellitus without complications Status: Chronic Assessment and Plan: Accu-Cheks AC and HS check A1c if not performed at the last 3 months. 02/06/2021 A1c 6.5. (9) Erosive gastritis: Code(s): K29.60 - Other gastritis without bleeding Status: Acute Assessment and Plan: Continue with PPI Subjective Date/time seen: 04/09/21 15:16 Interval history: 61-year-old female who lives in her own home. She came to the emergency room due to shortness of breath. She does have a history of COPD and sleep apnea. pt is on high flow oxygen doing well. hb is 7 seen by oncology/ hematology md wean off oxygen today pt baseline is 4 liters Review of Systems Review of Systems: All systems reviewed & are unremarkable except as noted in HPI and below Exam Const: General: cooperative, healthy appearing, comfortable, no acute distress, well developed, alert, awake and Physically active Nutritional Appearance: average body habitus and well nourished Orientation/consciousness: oriented to person, oriented to place, oriented to time and patient oriented x3 Limitations: no limitations Eyes: Pupils: Equal, round and reactive pupils present Resp: Effort & Inspection: normal respiratory effort Auscultation: wheezes Cardio: Palpation: normal PMI Rate: regular rate Rhythm: regular rhythm Heart sounds: S1 normal heart sound present and S2 normal heart sound present Peripheral pulses: Peripheral pulses 2+ throughout GI: Inspection: normal to inspection Auscul
[2021-04-09] MEDS: POLYSACCHARIDE IRON COMPLEX 150 MG CAPSULE PO ×2 (15:59→18:31)
[2021-04-09 17:20] LABS: Glucose Point of Care 107 mg/dl (65-105)
[2021-04-09 21:08] LABS: Glucose Point of Care 173 mg/dl (65-105)
[2021-04-10] VITALS (27 sets, daily range): BP systolic 105–125; BP diastolic 49–70; PULSE 61–94; RESP 15–24; TEMP 35.7–36.5; O2SAT 93–98
[2021-04-10] MEDS: IPRATROPIUM BR 0.02% INH SOLN 0.5 MG/2.5 ML VIAL INHALATION ×4 (01:21→20:48)
[2021-04-10 05:03] LABS: Hematocrit 26.3 % (37.0-47.0); Hemoglobin 7.3 g/dL (12.0-15.0); Immature Platelet Fraction Pct 5.8 % (0.9-11.2); Mean Corpuscular HGB Conc 27.8 g/dl (32-36); Mean Corpuscular Hemoglobin 19.8 pg (26-34); Mean Corpuscular Volume 71.5 fl (80-100); Platelet Count Result 266 k/mm3 (150-375); Red Blood Count 3.68 M/mm3 (4.2-5.4); Red Cell Distribution Width 24.4 % (11.5-14.5); White Blood Count 10.3 K/mm3 (4.5-10.0)
[2021-04-10 05:17] LABS: Anion Gap 7 mmol/L (8-16); Blood Urea Nitrogen 17 mg/dL (7-17); Calcium 9.3 mg/dL (8.4-10.2); Carbon Dioxide 31 mmol/L (22-30); Chloride 104 mmol/L (98-107); Estimated CRCL calculation 72 ml/min; Estimated Glomerular Filt Rate > 60; Glucose 121 mg/dL (65-105); Potassium 3.7 mmol/L (3.4-5.0); Sodium 142 mmol/L (137-145)
--- NOTE | 2021-04-10 07:32 | PC.NURSE ---
This patient transferred to IMU room 200 at 0650 a.m. from ICU bed 2. All belongings brought with patient to new room. Report given at bedside to POWER Marshall.
[2021-04-10 08:01] LABS: Glucose Point of Care 115 mg/dl (65-105)
[2021-04-10] MEDS: POLYSACCHARIDE IRON COMPLEX 150 MG CAPSULE PO ×2 (08:43→17:29)
[2021-04-10] MEDS: POTASSIUM CHLORIDE 10 MEQ TABLET.ER PO ×2 (08:43→17:34)
[2021-04-10] MEDS: FUROSEMIDE INJ 40 MG/4 ML VIAL 20 MG IV PUSH ×2 (08:43→17:29)
[2021-04-10] MEDS: ATORVASTATIN 40 MG TABLET PO (08:44)
[2021-04-10] MEDS: PANTOPRAZOLE SODIUM IV 40 MG VIAL IV PUSH ×2 (08:45→22:34)
[2021-04-10] MEDS: UMECLIDINIUM BROMIDE 62.5 MCG ELLIPTA 1 PUFF INHALATION (09:01)
--- NOTE | 2021-04-10 11:12 | PM.IMPN ---
Progress Note: A&P Assessment and Plan (1) CHF exacerbation: Qualifiers: Heart failure type: diastolic Qualified Code(s): I50.33 - Acute on chronic diastolic (congestive) heart failure Code(s): I50.9 - Heart failure, unspecified Status: Chronic Assessment and Plan: IV Lasix and continue with home medication (2) Acute on chronic respiratory failure with hypoxemia: Code(s): J96.21 - Acute and chronic respiratory failure with hypoxia Status: Acute Assessment and Plan: Due to CHF, underlying COPD (3) COPD (chronic obstructive pulmonary disease): Qualifiers: COPD type: unspecified COPD Qualified Code(s): J44.9 - Chronic obstructive pulmonary disease, unspecified Code(s): J44.9 - Chronic obstructive pulmonary disease, unspecified Status: Chronic Assessment and Plan: Continue with inhalers from home. Dual nebs while here (4) Microcytic anemia: Code(s): D50.9 - Iron deficiency anemia, unspecified Status: Acute Assessment and Plan: Lab c/w Fe Deficiency IV iron polysaccharide daily 04/09-04/12. (5) HTN (hypertension), malignant: Code(s): I10 - Essential (primary) hypertension Status: Chronic Assessment and Plan: Continue with home medications. Home medications are not yet verified. (6) Anemia: Qualifiers: Anemia type: iron deficiency Iron deficiency anemia type: chronic blood loss Qualified Code(s): D50.0 - Iron deficiency anemia secondary to blood loss (chronic) Code(s): D64.9 - Anemia, unspecified Status: Chronic Assessment and Plan: PPI Iron replacement (7) Diabetes mellitus: Qualifiers: Diabetes mellitus type: type 2 Diabetes mellitus longterm insulin use: without longterm use Diabetes mellitus complication status: with hyperglycemia Qualified Code(s): E11.65 - Type 2 diabetes mellitus with hyperglycemia Code(s): E11.9 - Type 2 diabetes mellitus without complications Status: Chronic Assessment and Plan: Accu-Zoltan AC and HS. 02/06/2021 A1c 6.5. (8) Erosive gastritis: Code(s): K29.60 - Other gastritis without bleeding Status: Acute Assessment and Plan: Continue PPI (9) Hyperlipidemia: Qualifiers: Hyperlipidemia type: unspecified Qualified Code(s): E78.5 - Hyperlipidemia, unspecified Code(s): E78.5 - Hyperlipidemia, unspecified Status: Chronic Assessment and Plan: Continue with home medications of atorvastatin Subjective Date/time seen: 04/10/21 11:12 Interval history: 61-year-old female who lives in her own home and uses oxygen 4L. She came to the emergency room due to shortness of breath. 04/10: Feeling better. Review of Systems Review of Systems: All systems reviewed & are unremarkable except as noted in HPI and below ROS unobtainable: Yes unobtainable due to mental status Exam Narrative: Exam Narrative: HEENT: PERRL, sclerae nonicteric, pharyngeal mucosa pink and intact NECK: No JVD CHEST: Decreased BS LLs. Normal effort. HEART: NL S1/S2, regular, no murmur ABDOMEN: BS+, soft, nontender, no mass, no bruits EXTREMITIES: No cyanosis, edema, or clubbing NEUROLOGIC: CN intact and symmetric to inspection. MUSCULOSKELETAL: Tone and strength symmetric. PSYCH: Alert. Oriented to person, place, and time. Objective Data Vital Signs Vital Signs: Vital Signs - 24 hr 04/09/21 12:00 04/09/21 14:00 04/09/21 14:12 Temperature Pulse Rate 59 L 68 67 Respiratory Rate 19 15 Blood Pressure 110/85 Pulse Oximetry 92 04/09/21 14:13 04/09/21 14:21 04/09/21 16:00 Temperature Pulse Rate 65 73 Respiratory Rate 20 17 Blood Pressure 144/95 H Pulse Oximetry 95 96 04/09/21 18:00 04/09/21 19:30 04/09/21 19:42 Temperature Pulse Rate 71 82 80 Respiratory Rate 20 Blood Pressure Pulse Oximetry 04/09/21 20:00 04/09/21 22:00 06
[2021-04-10 12:17] LABS: Glucose Point of Care 135 mg/dl (65-105)
[2021-04-10 16:52] LABS: Glucose Point of Care 102 mg/dl (65-105)
[2021-04-10 21:08] LABS: Glucose Point of Care 116 mg/dl (65-105)
[2021-04-11] VITALS (26 sets, daily range): BP systolic 104–119; BP diastolic 52–69; PULSE 63–88; RESP 16–22; TEMP 36.5–37; O2SAT 90–98
[2021-04-11] MEDS: IPRATROPIUM BR 0.02% INH SOLN 0.5 MG/2.5 ML VIAL INHALATION ×4 (02:29→19:45)
[2021-04-11 05:03] LABS: Hematocrit 26.5 % (37.0-47.0); Hemoglobin 7.3 g/dL (12.0-15.0); Immature Platelet Fraction Pct 5.7 % (0.9-11.2); Mean Corpuscular HGB Conc 27.5 g/dl (32-36); Mean Corpuscular Hemoglobin 19.8 pg (26-34); Mean Corpuscular Volume 71.8 fl (80-100); Mean Platelet Volume 10.2 fl (7.4-10.4); Platelet Count Result 270 k/mm3 (150-375); Red Blood Count 3.69 M/mm3 (4.2-5.4); Red Cell Distribution Width 24.7 % (11.5-14.5); White Blood Count 10.6 K/mm3 (4.5-10.0)
[2021-04-11 05:15] LABS: Anion Gap 7 mmol/L (8-16); Blood Urea Nitrogen 13 mg/dL (7-17); Calcium 9.3 mg/dL (8.4-10.2); Carbon Dioxide 32 mmol/L (22-30); Chloride 103 mmol/L (98-107); Estimated CRCL calculation 87 ml/min; Estimated Glomerular Filt Rate > 60; Glucose 103 mg/dL (65-105); Magnesium 1.9 mg/dL (1.6-2.3); Potassium 3.5 mmol/L (3.4-5.0); Sodium 142 mmol/L (137-145)
[2021-04-11 08:15] LABS: Glucose Point of Care 101 mg/dl (65-105)
[2021-04-11] MEDS: UMECLIDINIUM BROMIDE 62.5 MCG ELLIPTA 1 PUFF INHALATION (08:25)
[2021-04-11] MEDS: POTASSIUM CHLORIDE 10 MEQ TABLET.ER PO ×2 (08:52→17:57)
[2021-04-11] MEDS: ATORVASTATIN 40 MG TABLET PO (08:52)
[2021-04-11] MEDS: FUROSEMIDE INJ 40 MG/4 ML VIAL 20 MG IV PUSH ×2 (08:53→17:57)
[2021-04-11] MEDS: PANTOPRAZOLE SODIUM IV 40 MG VIAL IV PUSH ×2 (08:53→20:59)
--- NOTE | 2021-04-11 08:58 | PM.IMPN ---
Progress Note: A&P Assessment and Plan (1) CHF exacerbation: Qualifiers: Heart failure type: diastolic Qualified Code(s): I50.33 - Acute on chronic diastolic (congestive) heart failure Code(s): I50.9 - Heart failure, unspecified Status: Chronic Assessment and Plan: IV Lasix and continue with home medication (2) Acute on chronic respiratory failure with hypoxemia: Code(s): J96.21 - Acute and chronic respiratory failure with hypoxia Status: Acute Assessment and Plan: Due to CHF, underlying COPD (3) COPD (chronic obstructive pulmonary disease): Qualifiers: COPD type: unspecified COPD Qualified Code(s): J44.9 - Chronic obstructive pulmonary disease, unspecified Code(s): J44.9 - Chronic obstructive pulmonary disease, unspecified Status: Chronic Assessment and Plan: Continue with inhalers from home. Dual nebs while here (4) Microcytic anemia: Code(s): D50.9 - Iron deficiency anemia, unspecified Status: Acute Assessment and Plan: Lab c/w Fe Deficiency IV iron polysaccharide daily 04/09-04/12. (5) HTN (hypertension), malignant: Code(s): I10 - Essential (primary) hypertension Status: Chronic Assessment and Plan: Continue with home medications. (6) Anemia: Qualifiers: Anemia type: iron deficiency Iron deficiency anemia type: chronic blood loss Qualified Code(s): D50.0 - Iron deficiency anemia secondary to blood loss (chronic) Code(s): D64.9 - Anemia, unspecified Status: Chronic Assessment and Plan: PPI Iron replacement (7) Diabetes mellitus: Qualifiers: Diabetes mellitus type: type 2 Diabetes mellitus halfway insulin use: without halfway use Diabetes mellitus complication status: with hyperglycemia Qualified Code(s): E11.65 - Type 2 diabetes mellitus with hyperglycemia Code(s): E11.9 - Type 2 diabetes mellitus without complications Status: Chronic Assessment and Plan: Accu-Chezora AC and HS. 02/06/2021 A1c 6.5. (8) Erosive gastritis: Code(s): K29.60 - Other gastritis without bleeding Status: Acute Assessment and Plan: Continue PPI (9) Hyperlipidemia: Qualifiers: Hyperlipidemia type: unspecified Qualified Code(s): E78.5 - Hyperlipidemia, unspecified Code(s): E78.5 - Hyperlipidemia, unspecified Status: Chronic Assessment and Plan: Continue with home medications Subjective Date/time seen: 04/11/21 08:58 Interval history: 61-year-old female who lives in her own home and uses oxygen 4L. She came to the emergency room due to shortness of breath. Found to be in CHF. 04/11: Ate well. Less sob. No swelling. Review of Systems Review of Systems: All systems reviewed & are unremarkable except as noted in HPI and below Exam Narrative: Exam Narrative: HEENT: PERRL, sclerae nonicteric, pharyngeal mucosa pink and intact NECK: No JVD CHEST: Decreased BS LLs. Normal effort. HEART: NL S1/S2, regular, no murmur ABDOMEN: BS+, soft, nontender, no mass, no bruits EXTREMITIES: No cyanosis, edema, or clubbing NEUROLOGIC: CN intact and symmetric to inspection. MUSCULOSKELETAL: Tone and strength symmetric. PSYCH: Alert. Oriented to person, place, and time. Objective Data Vital Signs Vital Signs: Vital Signs - 24 hr 04/10/21 09:09 04/10/21 09:28 04/10/21 09:31 Temperature Pulse Rate 78 78 Respiratory Rate 18 18 Blood Pressure Pulse Oximetry 94 04/10/21 10:00 04/10/21 12:00 04/10/21 12:16 Temperature 96.3 F L Pulse Rate 67 72 72 Respiratory Rate 22 H 22 H Blood Pressure 115/58 L Pulse Oximetry 96 96 04/10/21 14:00 04/10/21 14:17 04/10/21 14:29 Temperature Pulse Rate 73 78 61 Respiratory Rate 18 18 Blood Pressure Pulse Oximetry 04/10/21 16:00 04/10/21 17:01 04/10/21 18:00 Temperature 96.9 F L Pulse Rate 75 75 71 Respirato
[2021-04-11 11:56] LABS: Glucose Point of Care 121 mg/dl (65-105)
[2021-04-11 16:11] LABS: Glucose Point of Care 105 mg/dl (65-105)
[2021-04-11 20:25] LABS: Glucose Point of Care 132 mg/dl (65-105)
[2021-04-12] VITALS (22 sets, daily range): BP systolic 104–115; BP diastolic 49–63; PULSE 61–90; RESP 16–22; TEMP 36.6–37; O2SAT 90–100
[2021-04-12] MEDS: IPRATROPIUM BR 0.02% INH SOLN 0.5 MG/2.5 ML VIAL INHALATION ×4 (01:34→21:24)
[2021-04-12 05:36] LABS: Hematocrit 27.4 % (37.0-47.0); Hemoglobin 7.5 g/dL (12.0-15.0); Immature Platelet Fraction Pct 5.7 % (0.9-11.2); Mean Corpuscular HGB Conc 27.4 g/dl (32-36); Mean Corpuscular Hemoglobin 19.8 pg (26-34); Mean Corpuscular Volume 72.3 fl (80-100); Mean Platelet Volume 10.4 fl (7.4-10.4); Platelet Count Result 245 k/mm3 (150-375); Red Blood Count 3.79 M/mm3 (4.2-5.4); Red Cell Distribution Width 25.3 % (11.5-14.5); White Blood Count 10.9 K/mm3 (4.5-10.0)
[2021-04-12 05:45] LABS: Anion Gap 6 mmol/L (8-16); Blood Urea Nitrogen 16 mg/dL (7-17); Calcium 9.4 mg/dL (8.4-10.2); Carbon Dioxide 35 mmol/L (22-30); Chloride 101 mmol/L (98-107); Estimated CRCL calculation 87 ml/min; Estimated Glomerular Filt Rate > 60; Glucose 113 mg/dL (65-105); Potassium 3.6 mmol/L (3.4-5.0); Sodium 142 mmol/L (137-145)
[2021-04-12] MEDS: UMECLIDINIUM BROMIDE 62.5 MCG ELLIPTA 1 PUFF INHALATION (07:57)
[2021-04-12] MEDS: POTASSIUM CHLORIDE 10 MEQ TABLET.ER PO ×2 (09:07→17:21)
[2021-04-12 09:08] LABS: Glucose Point of Care 116 mg/dl (65-105)
[2021-04-12] MEDS: PANTOPRAZOLE SODIUM IV 40 MG VIAL IV PUSH ×2 (09:08→20:59)
[2021-04-12] MEDS: ATORVASTATIN 40 MG TABLET PO (09:08)
[2021-04-12] MEDS: FUROSEMIDE INJ 40 MG/4 ML VIAL 20 MG IV PUSH ×2 (09:08→17:21)
[2021-04-12 12:08] LABS: Glucose Point of Care 123 mg/dl (65-105)
--- NOTE | 2021-04-12 15:52 | PM.IMPN ---
Progress Note: A&P Assessment and Plan (1) CHF exacerbation: Qualifiers: Heart failure type: diastolic Qualified Code(s): I50.33 - Acute on chronic diastolic (congestive) heart failure Code(s): I50.9 - Heart failure, unspecified Status: Chronic Assessment and Plan: IV Lasix and continue with home medication (2) Acute on chronic respiratory failure with hypoxemia: Code(s): J96.21 - Acute and chronic respiratory failure with hypoxia Status: Acute Assessment and Plan: Due to CHF, underlying COPD (3) COPD (chronic obstructive pulmonary disease): Qualifiers: COPD type: unspecified COPD Qualified Code(s): J44.9 - Chronic obstructive pulmonary disease, unspecified Code(s): J44.9 - Chronic obstructive pulmonary disease, unspecified Status: Chronic Assessment and Plan: Continue with inhalers from home. Dual nebs while here (4) Microcytic anemia: Code(s): D50.9 - Iron deficiency anemia, unspecified Status: Acute Assessment and Plan: Lab c/w Fe Deficiency IV iron polysaccharide daily 04/09-04/12. Continue to monitor (5) HTN (hypertension), malignant: Code(s): I10 - Essential (primary) hypertension Status: Chronic Assessment and Plan: Continue with home medications. (6) Anemia: Qualifiers: Anemia type: iron deficiency Iron deficiency anemia type: chronic blood loss Qualified Code(s): D50.0 - Iron deficiency anemia secondary to blood loss (chronic) Code(s): D64.9 - Anemia, unspecified Status: Chronic Assessment and Plan: PPI Iron replacement (7) Diabetes mellitus: Qualifiers: Diabetes mellitus type: type 2 Diabetes mellitus mcc insulin use: without mcc use Diabetes mellitus complication status: with hyperglycemia Qualified Code(s): E11.65 - Type 2 diabetes mellitus with hyperglycemia Code(s): E11.9 - Type 2 diabetes mellitus without complications Status: Chronic Assessment and Plan: Accu-Zoltan AC and HS. 02/06/2021 A1c 6.5. (8) Erosive gastritis: Code(s): K29.60 - Other gastritis without bleeding Status: Acute Assessment and Plan: Continue PPI (9) Hyperlipidemia: Qualifiers: Hyperlipidemia type: unspecified Qualified Code(s): E78.5 - Hyperlipidemia, unspecified Code(s): E78.5 - Hyperlipidemia, unspecified Status: Chronic Assessment and Plan: Continue with home medications Subjective Date/time seen: 04/12/21 15:52 Interval history: 61-year-old female who lives in her own home and uses oxygen 4L. She came to the emergency room due to shortness of breath. Found to be in CHF. 04/11: Ate well. Less sob. No swelling. 04/12: Doing better still SOB on high flow Review of Systems Review of Systems: All systems reviewed & are unremarkable except as noted in HPI and below Exam Narrative: Exam Narrative: Elderly lady NECK: No JVD CHEST: Decreased BS LLs. Normal effort. HEART: NL S1/S2, regular, no murmur ABDOMEN: BS+, soft, nontender, no mass, no bruits EXTREMITIES: No cyanosis, edema, or clubbing NEUROLOGIC: CN intact and symmetric to inspection. MUSCULOSKELETAL: Tone and strength symmetric. PSYCH: Alert. Oriented to person, place, and time. Objective Data Vital Signs Vital Signs: Vital Signs - 24 hr 04/11/21 16:00 04/11/21 18:00 04/11/21 19:38 Temperature 36.8 C 36.9 C Pulse Rate 78 85 77 Respiratory Rate 18 18 Blood Pressure 114/69 104/52 L Pulse Oximetry 98 95 04/11/21 19:45 04/11/21 19:46 04/11/21 19:57 Temperature Pulse Rate 77 77 78 Respiratory Rate 18 Blood Pressure Pulse Oximetry 93 04/11/21 20:00 04/11/21 22:00 04/11/21 23:55 Temperature 37.0 C Pulse Rate 76 81 75 Respiratory Rate 19 Blood Pressure 111/54 L Pulse Oximetry 90 96 04/12/21 00:00 04/12/21 01:35 04/12/21 01:47 Temperature Puls
[2021-04-12 17:21] LABS: Glucose Point of Care 127 mg/dl (65-105)
[2021-04-12 20:34] LABS: Glucose Point of Care 155 mg/dl (65-105)
[2021-04-13] VITALS (30 sets, daily range): BP systolic 95–126; BP diastolic 47–72; PULSE 60–83; RESP 17–22; TEMP 36.4–36.9; O2SAT 89–97
[2021-04-13] MEDS: IPRATROPIUM BR 0.02% INH SOLN 0.5 MG/2.5 ML VIAL INHALATION ×4 (03:16→20:21)
[2021-04-13] MEDS: HYDROcodone/acetaminophen (*CRX) 5-325 MG TABLET 1 TAB PO (04:26)
[2021-04-13 05:08] LABS: Hematocrit 27.7 % (37.0-47.0); Hemoglobin 7.7 g/dL (12.0-15.0); Mean Corpuscular HGB Conc 27.8 g/dl (32-36); Mean Corpuscular Hemoglobin 20.2 pg (26-34); Mean Corpuscular Volume 72.7 fl (80-100); Mean Platelet Volume 10.1 fl (7.4-10.4); Platelet Count Result 263 k/mm3 (150-375); Red Blood Count 3.81 M/mm3 (4.2-5.4); Red Cell Distribution Width 26.3 % (11.5-14.5); White Blood Count 10.9 K/mm3 (4.5-10.0)
[2021-04-13 05:29] LABS: Anion Gap 8 mmol/L (8-16); Blood Urea Nitrogen 15 mg/dL (7-17); Calcium 9.4 mg/dL (8.4-10.2); Carbon Dioxide 33 mmol/L (22-30); Chloride 101 mmol/L (98-107); Estimated CRCL calculation 79 ml/min; Estimated Glomerular Filt Rate > 60; Glucose 106 mg/dL (65-105); Potassium 3.5 mmol/L (3.4-5.0); Sodium 142 mmol/L (137-145)
[2021-04-13 07:51] LABS: Glucose Point of Care 103 mg/dl (65-105)
[2021-04-13] MEDS: PANTOPRAZOLE SODIUM IV 40 MG VIAL IV PUSH ×2 (08:13→20:08)
[2021-04-13] MEDS: ATORVASTATIN 40 MG TABLET PO (08:13)
[2021-04-13] MEDS: FUROSEMIDE INJ 40 MG/4 ML VIAL 20 MG IV PUSH ×2 (08:13→17:58)
[2021-04-13] MEDS: POTASSIUM CHLORIDE 10 MEQ TABLET.ER PO ×2 (08:13→17:58)
[2021-04-13] MEDS: UMECLIDINIUM BROMIDE 62.5 MCG ELLIPTA 1 PUFF INHALATION (08:29)
[2021-04-13 11:52] LABS: Glucose Point of Care 136 mg/dl (65-105)
[2021-04-13 13:22] LABS: Soluble Transferrin Receptor 4.74 mg/L (0.76-1.76)
[2021-04-13 15:50] LABS: Glucose Point of Care 127 mg/dl (65-105)
--- NOTE | 2021-04-13 16:10 | PM.IMPN ---
Progress Note: A&P Assessment and Plan (1) CHF exacerbation: Qualifiers: Heart failure type: diastolic Qualified Code(s): I50.33 - Acute on chronic diastolic (congestive) heart failure Code(s): I50.9 - Heart failure, unspecified Status: Chronic Assessment and Plan: IV Lasix and continue with home medication (2) Acute on chronic respiratory failure with hypoxemia: Code(s): J96.21 - Acute and chronic respiratory failure with hypoxia Status: Acute Assessment and Plan: Due to CHF, underlying COPD (3) COPD (chronic obstructive pulmonary disease): Qualifiers: COPD type: unspecified COPD Qualified Code(s): J44.9 - Chronic obstructive pulmonary disease, unspecified Code(s): J44.9 - Chronic obstructive pulmonary disease, unspecified Status: Chronic Assessment and Plan: Continue with inhalers from home. Duonebs presently (4) Microcytic anemia: Code(s): D50.9 - Iron deficiency anemia, unspecified Status: Acute Assessment and Plan: Hb is 7.7. Continue to monitor (5) HTN (hypertension), malignant: Code(s): I10 - Essential (primary) hypertension Status: Chronic Assessment and Plan: Continue with home medications. (6) Anemia: Qualifiers: Anemia type: iron deficiency Iron deficiency anemia type: chronic blood loss Qualified Code(s): D50.0 - Iron deficiency anemia secondary to blood loss (chronic) Code(s): D64.9 - Anemia, unspecified Status: Chronic Assessment and Plan: PPI Iron replacement (7) Diabetes mellitus: Qualifiers: Diabetes mellitus type: type 2 Diabetes mellitus prison insulin use: without prison use Diabetes mellitus complication status: with hyperglycemia Qualified Code(s): E11.65 - Type 2 diabetes mellitus with hyperglycemia Code(s): E11.9 - Type 2 diabetes mellitus without complications Status: Chronic Assessment and Plan: Accu-Cheks AC and HS. 02/06/2021 A1c 6.5. (8) Erosive gastritis: Code(s): K29.60 - Other gastritis without bleeding Status: Acute Assessment and Plan: Continue PPI (9) Hyperlipidemia: Qualifiers: Hyperlipidemia type: unspecified Qualified Code(s): E78.5 - Hyperlipidemia, unspecified Code(s): E78.5 - Hyperlipidemia, unspecified Status: Chronic Assessment and Plan: Continue with home medications Subjective Date/time seen: 04/13/21 16:10 Interval history: 61-year-old female who lives in her own home and uses oxygen 4L. She came to the emergency room due to shortness of breath. Found to be in CHF. 04/11: Ate well. Less sob. No swelling. 04/12: Doing better still SOB on high flow 04/13: Pt is SOB, on high flow Review of Systems Review of Systems: All systems reviewed & are unremarkable except as noted in HPI and below ROS unobtainable: Yes unobtainable due to mental status Exam Narrative: Exam Narrative: Elderly lady NECK: No JVD CHEST: Decreased BS LLs. Normal effort. HEART: NL S1/S2, regular, no murmur ABDOMEN: BS+, soft, nontender, no mass, no bruits EXTREMITIES: No cyanosis, edema, or clubbing NEUROLOGIC: CN intact and symmetric to inspection. MUSCULOSKELETAL: Tone and strength symmetric. PSYCH: Alert. Oriented to person, place, and time. Objective Data Vital Signs Vital Signs: Vital Signs - 24 hr 04/12/21 18:00 04/12/21 20:00 04/12/21 21:28 Temperature 36.6 C Pulse Rate 74 71 69 Respiratory Rate 20 20 Blood Pressure 115/49 L Pulse Oximetry 96 91 04/12/21 21:40 04/12/21 22:00 04/12/21 23:12 Temperature 36.6 C Pulse Rate 75 72 71 Respiratory Rate 20 22 H Blood Pressure 105/61 Pulse Oximetry 94 04/13/21 00:00 04/13/21 02:00 04/13/21 03:15 Temperature Pulse Rate 74 78 70 Respiratory Rate 20 Blood Pressure Pulse Oximetry 90 04/13/21 03:30 04/13/21 04:00 04/13/21 06:0
[2021-04-13] MEDS: POLYSACCHARIDE IRON COMPLEX 150 MG CAPSULE PO (17:58)
[2021-04-13] MEDS: SODIUM CHLORIDE 0.9% IV 250 ML 30 ML IV CONT (20:08)
[2021-04-13 20:27] LABS: Glucose Point of Care 194 mg/dl (65-105)
[2021-04-14] VITALS (28 sets, daily range): BP systolic 118–132; BP diastolic 59–84; PULSE 68–99; RESP 16–22; TEMP 36.5–37; O2SAT 86–100
[2021-04-14] MEDS: IPRATROPIUM BR 0.02% INH SOLN 0.5 MG/2.5 ML VIAL INHALATION ×4 (02:15→21:00)
[2021-04-14 05:10] LABS: Hemoglobin 8.7 g/dL (12.0-15.0); Immature Platelet Fraction Pct 5.8 % (0.9-11.2); Mean Corpuscular Volume 72.3 fl (80-100); Mean Platelet Volume 10.2 fl (7.4-10.4); Platelet Count Result 235 k/mm3 (150-375); Red Blood Count 4.15 M/mm3 (4.2-5.4); Red Cell Distribution Width 26.6 % (11.5-14.5); White Blood Count 10.4 K/mm3 (4.5-10.0)
[2021-04-14 05:30] LABS: Anion Gap 6 mmol/L (8-16); Blood Urea Nitrogen 16 mg/dL (7-17); Calcium 9.4 mg/dL (8.4-10.2); Carbon Dioxide 34 mmol/L (22-30); Chloride 100 mmol/L (98-107); Estimated CRCL calculation 87 ml/min; Estimated Glomerular Filt Rate > 60; Glucose 110 mg/dL (65-105); Potassium 3.7 mmol/L (3.4-5.0); Sodium 140 mmol/L (137-145)
[2021-04-14] MEDS: UMECLIDINIUM BROMIDE 62.5 MCG ELLIPTA 1 PUFF INHALATION (08:39)
[2021-04-14] MEDS: POLYSACCHARIDE IRON COMPLEX 150 MG CAPSULE PO ×2 (09:02→17:13)
[2021-04-14] MEDS: FUROSEMIDE INJ 40 MG/4 ML VIAL 20 MG IV PUSH ×2 (09:02→17:13)
[2021-04-14] MEDS: ATORVASTATIN 40 MG TABLET PO (09:02)
[2021-04-14] MEDS: POTASSIUM CHLORIDE 10 MEQ TABLET.ER PO ×2 (09:02→17:13)
[2021-04-14] MEDS: PANTOPRAZOLE SODIUM IV 40 MG VIAL IV PUSH ×2 (09:02→20:34)
[2021-04-14 09:06] LABS: Glucose Point of Care 104 mg/dl (65-105)
[2021-04-14 12:17] LABS: Glucose Point of Care 142 mg/dl (65-105)
--- NOTE | 2021-04-14 15:02 | PM.IMPN ---
Progress Note: A&P Assessment and Plan (1) CHF exacerbation: Qualifiers: Heart failure type: diastolic Qualified Code(s): I50.33 - Acute on chronic diastolic (congestive) heart failure Code(s): I50.9 - Heart failure, unspecified Status: Chronic Assessment and Plan: IV Lasix and continue with home medication, continue oxygen at 5 liters (2) Acute on chronic respiratory failure with hypoxemia: Code(s): J96.21 - Acute and chronic respiratory failure with hypoxia Status: Acute Assessment and Plan: Due to CHF, underlying COPD (3) COPD (chronic obstructive pulmonary disease): Qualifiers: COPD type: unspecified COPD Qualified Code(s): J44.9 - Chronic obstructive pulmonary disease, unspecified Code(s): J44.9 - Chronic obstructive pulmonary disease, unspecified Status: Chronic Assessment and Plan: Continue with inhalers from home. Duonebs presently (4) Microcytic anemia: Code(s): D50.9 - Iron deficiency anemia, unspecified Status: Acute Assessment and Plan: Hb is 7.7. Continue to monitor (5) HTN (hypertension), malignant: Code(s): I10 - Essential (primary) hypertension Status: Chronic Assessment and Plan: Continue with home medications. (6) Anemia: Qualifiers: Anemia type: iron deficiency Iron deficiency anemia type: chronic blood loss Qualified Code(s): D50.0 - Iron deficiency anemia secondary to blood loss (chronic) Code(s): D64.9 - Anemia, unspecified Status: Chronic Assessment and Plan: PPI Iron replacement (7) Diabetes mellitus: Qualifiers: Diabetes mellitus type: type 2 Diabetes mellitus terminal operations manager insulin use: without terminal operations manager use Diabetes mellitus complication status: with hyperglycemia Qualified Code(s): E11.65 - Type 2 diabetes mellitus with hyperglycemia Code(s): E11.9 - Type 2 diabetes mellitus without complications Status: Chronic Assessment and Plan: Accu-Zoltan AC and HS. 02/06/2021 A1c 6.5. (8) Erosive gastritis: Code(s): K29.60 - Other gastritis without bleeding Status: Acute Assessment and Plan: Continue PPI (9) Hyperlipidemia: Qualifiers: Hyperlipidemia type: unspecified Qualified Code(s): E78.5 - Hyperlipidemia, unspecified Code(s): E78.5 - Hyperlipidemia, unspecified Status: Chronic Assessment and Plan: Continue with home medications Subjective Date/time seen: 04/14/21 15:02 Interval history: 61-year-old female who lives in her own home and uses oxygen 4L. She came to the emergency room due to shortness of breath. Found to be in CHF. 04/11: Ate well. Less sob. No swelling. 04/12: Doing better still SOB on high flow 04/13: Pt is SOB, on high flow 04/14: Pt is on 5 liters now less SOB Review of Systems Review of Systems: All systems reviewed & are unremarkable except as noted in HPI and below Exam Narrative: Exam Narrative: Elderly lady NECK: No JVD CHEST: Decreased BS LLs. Normal effort. HEART: NL S1/S2, regular, no murmur ABDOMEN: BS+, soft, nontender, no mass, no bruits EXTREMITIES: No cyanosis, edema, or clubbing NEUROLOGIC: CN intact and symmetric to inspection. MUSCULOSKELETAL: Tone and strength symmetric. PSYCH: Alert. Oriented to person, place, and time. Objective Data Vital Signs Vital Signs: Vital Signs - 24 hr 04/13/21 16:00 04/13/21 18:00 04/13/21 20:00 Temperature 36.8 C 36.4 C Pulse Rate 60 77 68 Respiratory Rate 19 20 Blood Pressure 110/55 L 120/72 Pulse Oximetry 96 95 04/13/21 20:03 04/13/21 20:18 04/13/21 20:22 Temperature 36.7 C 36.4 C Pulse Rate 71 70 72 Respiratory Rate 18 20 20 Blood Pressure 115/63 105/64 Pulse Oximetry 96 95 04/13/21 20:29 04/13/21 20:39 04/13/21 21:12 Temperature Pulse Rate 74 77 77 Respiratory Rate 20 Blood Pressure Pulse Oximetry 97 95
[2021-04-14 17:40] LABS: Glucose Point of Care 134 mg/dl (65-105)
[2021-04-14 21:57] LABS: Glucose Point of Care 143 mg/dl (65-105)
[2021-04-15] VITALS (26 sets, daily range): BP systolic 104–126; BP diastolic 51–70; PULSE 70–94; RESP 12–92; TEMP 36.1–36.8; O2SAT 16–100
[2021-04-15] MEDS: IPRATROPIUM BR 0.02% INH SOLN 0.5 MG/2.5 ML VIAL INHALATION ×4 (02:19→20:02)
[2021-04-15 05:14] LABS: Basophils Percent Auto 0.3 % (0.2-1.2); Eosinophils Absolute Auto 0.1 K/mm3 (0-0.3); Eosinophils Percent Auto 1.3 % (0-4.4); Hematocrit 31.1 % (37.0-47.0); Hemoglobin 8.8 g/dL (12.0-15.0); Immature Granulocyte Absolute 0.03 K/mm3 (0.00-0.031); Immature Granulocyte Percent A 0.3 % (0-0.5); Immature Platelet Fraction Pct 5.4 % (0.9-11.2); Lymphocytes Absolute Auto 1.24 K/mm3 (0.9-3.2); Lymphocytes Percent Auto 11.5 % (18.3-44.2); Mean Corpuscular HGB Conc 28.3 g/dl (32-36); Mean Corpuscular Hemoglobin 21.1 pg (26-34); Mean Corpuscular Volume 74.6 fl (80-100); Monocytes Absolute Auto 0.6 K/mm3 (0.1-0.6); Monocytes Percent Auto 5.2 % (2.6-8.5); Neutrophils Absolute Auto 8.8 K/mm3 (1.3-6.7); Neutrophils Percent Auto 81.4 % (45.5-73.1); Platelet Count Result 256 k/mm3 (150-375); Red Blood Count 4.17 M/mm3 (4.2-5.4); Red Cell Distribution Width 27.2 % (11.5-14.5); White Blood Count 10.8 K/mm3 (4.5-10.0)
[2021-04-15 05:28] LABS: Anion Gap 6 mmol/L (8-16); Blood Urea Nitrogen 17 mg/dL (7-17); Calcium 9.6 mg/dL (8.4-10.2); Carbon Dioxide 35 mmol/L (22-30); Chloride 100 mmol/L (98-107); Estimated CRCL calculation 79 ml/min; Estimated Glomerular Filt Rate > 60; Glucose 115 mg/dL (65-105); Potassium 3.6 mmol/L (3.4-5.0); Sodium 141 mmol/L (137-145)
[2021-04-15 05:41] LABS: Hypochromasia 2+ (NORMAL); Platelet Estimate Adequate (Adequate)
[2021-04-15 05:42] LABS: Anisocytosis 1+ (NORMAL)
[2021-04-15] MEDS: UMECLIDINIUM BROMIDE 62.5 MCG ELLIPTA 1 PUFF INHALATION (07:35)
[2021-04-15 08:31] LABS: Glucose Point of Care 117 mg/dl (65-105)
[2021-04-15] MEDS: PANTOPRAZOLE SODIUM IV 40 MG VIAL IV PUSH ×2 (08:45→20:21)
[2021-04-15] MEDS: ATORVASTATIN 40 MG TABLET PO (08:45)
[2021-04-15] MEDS: POTASSIUM CHLORIDE 10 MEQ TABLET.ER PO ×2 (08:45→16:39)
[2021-04-15] MEDS: FUROSEMIDE INJ 40 MG/4 ML VIAL 20 MG IV PUSH ×2 (08:45→16:39)
[2021-04-15] MEDS: POLYSACCHARIDE IRON COMPLEX 150 MG CAPSULE PO ×2 (08:45→16:39)
--- NOTE | 2021-04-15 10:50 | PCDIET ---
Weekly nutritional screen. Patient is tolerating current diet with adequate intake. Weight up from admission. Discussed with patient importance of continuing to limit sodium on discharge. Patient states understanding and denies need for information/education. No nutritional needs at this time.
[2021-04-15 12:27] LABS: Glucose Point of Care 134 mg/dl (65-105)
--- NOTE | 2021-04-15 14:09 | PM.IMPN ---
Progress Note: A&P Assessment and Plan (1) CHF exacerbation: Qualifiers: Heart failure type: diastolic Qualified Code(s): I50.33 - Acute on chronic diastolic (congestive) heart failure Code(s): I50.9 - Heart failure, unspecified Status: Chronic Assessment and Plan: IV Lasix and continue with home medication, continue oxygen at 5-8liters (2) Acute on chronic respiratory failure with hypoxemia: Code(s): J96.21 - Acute and chronic respiratory failure with hypoxia Status: Acute Assessment and Plan: Due to CHF, underlying COPD (3) COPD (chronic obstructive pulmonary disease): Qualifiers: COPD type: unspecified COPD Qualified Code(s): J44.9 - Chronic obstructive pulmonary disease, unspecified Code(s): J44.9 - Chronic obstructive pulmonary disease, unspecified Status: Chronic Assessment and Plan: Continue with inhalers from home. Duonebs presently (4) Microcytic anemia: Code(s): D50.9 - Iron deficiency anemia, unspecified Status: Acute Assessment and Plan: Hb is 7.7. Continue to monitor (5) HTN (hypertension), malignant: Code(s): I10 - Essential (primary) hypertension Status: Chronic Assessment and Plan: Continue with home medications. (6) Anemia: Qualifiers: Anemia type: iron deficiency Iron deficiency anemia type: chronic blood loss Qualified Code(s): D50.0 - Iron deficiency anemia secondary to blood loss (chronic) Code(s): D64.9 - Anemia, unspecified Status: Chronic Assessment and Plan: PPI Iron replacement (7) Diabetes mellitus: Qualifiers: Diabetes mellitus type: type 2 Diabetes mellitus superintendent marine oil terminal insulin use: without superintendent marine oil terminal use Diabetes mellitus complication status: with hyperglycemia Qualified Code(s): E11.65 - Type 2 diabetes mellitus with hyperglycemia Code(s): E11.9 - Type 2 diabetes mellitus without complications Status: Chronic Assessment and Plan: Accu-Zoltan AC and HS. 02/06/2021 A1c 6.5. (8) Erosive gastritis: Code(s): K29.60 - Other gastritis without bleeding Status: Acute Assessment and Plan: Continue PPI (9) Hyperlipidemia: Qualifiers: Hyperlipidemia type: unspecified Qualified Code(s): E78.5 - Hyperlipidemia, unspecified Code(s): E78.5 - Hyperlipidemia, unspecified Status: Chronic Assessment and Plan: Continue with home medications Subjective Date/time seen: 04/15/21 14:09 Interval history: 61-year-old female who lives in her own home and uses oxygen 4L. She came to the emergency room due to shortness of breath. Found to be in CHF. 04/11: Ate well. Less sob. No swelling. 04/12: Doing better still SOB on high flow 04/13: Pt is SOB, on high flow 04/14: Pt is on 5 liters now less SOB 04/15: Doing better on 5-8 liters of oxygen Cxr today shows cardiomegaly and pulmonary edema Review of Systems Review of Systems: All systems reviewed & are unremarkable except as noted in HPI and below Exam Narrative: Exam Narrative: Elderly lady NECK: No JVD CHEST: Decreased BS LLs. Normal effort. HEART: NL S1/S2, regular, no murmur ABDOMEN: BS+, soft, nontender, no mass, no bruits EXTREMITIES: No cyanosis, edema, or clubbing NEUROLOGIC: CN intact and symmetric to inspection. MUSCULOSKELETAL: Tone and strength symmetric. PSYCH: Alert. Oriented to person, place, and time. Objective Data Vital Signs Vital Signs: Vital Signs - 24 hr 04/14/21 14:22 04/14/21 14:37 04/14/21 14:38 Temperature Pulse Rate 72 82 Respiratory Rate 16 18 Blood Pressure Pulse Oximetry 96 04/14/21 14:53 04/14/21 16:00 04/14/21 18:00 Temperature 36.5 C Pulse Rate 74 98 Respiratory Rate 22 H Blood Pressure 124/84 Pulse Oximetry 91 100 04/14/21 20:00 04/14/21 21:01 04/14/21 21:22 Temperature 36.6 C Pulse Rate 91 76 78 Respiratory Rate 2
[2021-04-15 16:41] LABS: Glucose Point of Care 139 mg/dl (65-105)
[2021-04-15 21:09] LABS: Glucose Point of Care 143 mg/dl (65-105)
[2021-04-16] VITALS (16 sets, daily range): BP systolic 111–157; BP diastolic 62–92; PULSE 67–99; RESP 18–22; TEMP 36.3–36.6; O2SAT 91–100
[2021-04-16] MEDS: IPRATROPIUM BR 0.02% INH SOLN 0.5 MG/2.5 ML VIAL INHALATION ×3 (03:52→13:58)
[2021-04-16 05:35] LABS: Anion Gap 7 mmol/L (8-16); Blood Urea Nitrogen 18 mg/dL (7-17); Calcium 9.6 mg/dL (8.4-10.2); Carbon Dioxide 35 mmol/L (22-30); Chloride 99 mmol/L (98-107); Estimated CRCL calculation 79 ml/min; Estimated Glomerular Filt Rate > 60; Glucose 112 mg/dL (65-105); Potassium 3.7 mmol/L (3.4-5.0); Sodium 141 mmol/L (137-145)
[2021-04-16] MEDS: UMECLIDINIUM BROMIDE 62.5 MCG ELLIPTA 1 PUFF INHALATION (07:35)
[2021-04-16 08:19] LABS: Glucose Point of Care 115 mg/dl (65-105)
[2021-04-16] MEDS: POTASSIUM CHLORIDE 10 MEQ TABLET.ER PO (08:25)
[2021-04-16] MEDS: ATORVASTATIN 40 MG TABLET PO (08:25)
[2021-04-16] MEDS: FUROSEMIDE INJ 40 MG/4 ML VIAL 20 MG IV PUSH (08:26)
[2021-04-16] MEDS: PANTOPRAZOLE SODIUM IV 40 MG VIAL IV PUSH (08:26)
[2021-04-16] MEDS: POLYSACCHARIDE IRON COMPLEX 150 MG CAPSULE PO (08:26)
[2021-04-16 11:50] LABS: Glucose Point of Care 153 mg/dl (65-105)
--- NOTE | 2021-04-16 15:02 | PM.DS ---
DS: Admitting Diagnosis Admitting Diagnosis Admitting Diagnosis: Hypoxic DS: Discharge Diagnosis Discharge Diagnosis (1) CHF exacerbation: Qualifiers: Heart failure type: diastolic Qualified Code(s): I50.33 - Acute on chronic diastolic (congestive) heart failure Code(s): I50.9 - Heart failure, unspecified Status: Resolved Assessment and Plan: IV Lasix and continue with home medication, Pt did well from high flow to oxygen at 4 liters treated for acute on chronic congestive heart failure (2) Acute on chronic respiratory failure with hypoxemia: Code(s): J96.21 - Acute and chronic respiratory failure with hypoxia Status: Resolved Assessment and Plan: Due to CHF, and underlying COPD (3) COPD (chronic obstructive pulmonary disease): Qualifiers: COPD type: unspecified COPD Qualified Code(s): J44.9 - Chronic obstructive pulmonary disease, unspecified Code(s): J44.9 - Chronic obstructive pulmonary disease, unspecified Status: Chronic Assessment and Plan: Continue with inhalers from home. Karen presently (4) Microcytic anemia: Code(s): D50.9 - Iron deficiency anemia, unspecified Status: Acute Assessment and Plan: Hb is 7.7 sp venofer infusions, now Hb is 8.8 (5) HTN (hypertension), malignant: Code(s): I10 - Essential (primary) hypertension Status: Chronic Assessment and Plan: Continue with home medications. (6) Anemia: Qualifiers: Anemia type: iron deficiency Iron deficiency anemia type: chronic blood loss Qualified Code(s): D50.0 - Iron deficiency anemia secondary to blood loss (chronic) Code(s): D64.9 - Anemia, unspecified Status: Chronic Assessment and Plan: PPI Iron replacement (7) Diabetes mellitus: Qualifiers: Diabetes mellitus complication status: with hyperglycemia Diabetes mellitus assisted insulin use: without buttermaker helper use Diabetes mellitus type: type 2 Qualified Code(s): E11.65 - Type 2 diabetes mellitus with hyperglycemia Code(s): E11.9 - Type 2 diabetes mellitus without complications Status: Chronic Assessment and Plan: Accu-Zoltan AC and HS. 02/06/2021 A1c 6.5. (8) Erosive gastritis: Code(s): K29.60 - Other gastritis without bleeding Status: Acute Assessment and Plan: Continue PPI (9) Hyperlipidemia: Qualifiers: Hyperlipidemia type: unspecified Qualified Code(s): E78.5 - Hyperlipidemia, unspecified Code(s): E78.5 - Hyperlipidemia, unspecified Status: Chronic Assessment and Plan: Continue with home medications DS: Summary Hospital Course Hospital Course: Interval history: 61-year-old female who lives in her own home and uses oxygen 4L. She came to the emergency room due to shortness of breath. Found to be in CHF. 04/11: Ate well. Less sob. No swelling. 04/12: Doing better still SOB on high flow 04/13: Pt is SOB, on high flow 04/14: Pt is on 5 liters now less SOB 04/15: Doing better on 5-8 liters of oxygen Cxr today shows cardiomegaly and pulmonary edema 04/16: pt is better back to baseline 4 liters Time Spent with Patient Time attestation: Total time spent providing and/or coordinating discharge services:40 minutes on day of discharge Exam Const: General: healthy appearing, alert and awake Nutritional Appearance: average body habitus and well nourished Orientation/consciousness: oriented to person, oriented to place, oriented to time and patient oriented x3 Limitations: no limitations Eyes: Pupils: Equal, round and reactive pupils present Resp: Effort & Inspection: normal respiratory effort Auscultation: wheezes Cardio: Palpation: normal PMI Rate: regular rate Rhythm: regular rhythm Heart sounds: S1 normal heart sound present and S2 normal heart sound present Peripheral pulses: Peripheral pulses 2+ throughout GI: Inspection: normal to inspe
== END 2021-04-16 17:44 | disposition home or self-care (01) | DRG 291 ==
LOC: ANHED 11:51 → ANHICU 15:27 → ANHIMU 04-16 15:10 → ANHICU 04-19 16:04 → ANHIMU 04-19 16:04
PROVIDERS: Internal Medicine; Internal Medicine Hematology & Oncology; Nurse Practitioner; Admitting Provider Family Medicine; Emergency Provider Emergency Medicine; PCP Internal Medicine Infectious Disease; Visit Provider Family Medicine
DX: I11.0 Hypertensive heart disease with heart failure (principal); J96.21 Acute and chronic respiratory failure with hypoxia; I50.33 Acute on chronic diastolic (congestive) heart failure; Z99.81 Dependence on supplemental oxygen; D50.0 Iron deficiency anemia secondary to blood loss (chronic); E78.5 Hyperlipidemia, unspecified; J44.9 Chronic obstructive pulmonary disease, unspecified; G47.33 Obstructive sleep apnea (adult) (pediatric); E11.65 Type 2 diabetes mellitus with hyperglycemia; K29.60 Other gastritis without bleeding; Z79.82 Long term (current) use of aspirin; Z79.84 Long term (current) use of oral hypoglycemic drugs; Z87.891 Personal history of nicotine dependence; Z88.0 Allergy status to penicillin; Z88.2 Allergy status to sulfonamides
CPT/HCPCS: 36415; 36430; 36600; 71045; 71046; 80048; 80053; 82375; 82607; 82728; 82805; 82948; 83050; 83540; 83550; 83735; 83880; 84238; 84443; 85014; 85018; 85025; 85027; 85055; 86850; 86900; 86901; 86920; 86923; 94002; 94003; 94640; 96374; 96375; 96376; 99285; A9270; C9113; G0378; J1756; J1940; J7050; P9016

== ENCOUNTER 2021-07-14 10:34 | Inpatient (IN) | payer MEDICARE, MEDICAID, SELFPAY ==
[2021-07-14] VITALS (56 sets, daily range): BP systolic 103–128; BP diastolic 60–78; PULSE 57–78; RESP 11–23; TEMP 35.9–36.8; O2SAT 90–100; BMI 46.0; BMI 45.9
--- NOTE | ~2021-07-14 | XR_ITS ---
EXAMINATION: XR chest 1V portable EXAM DATE: 07/22/2021 08:35 INDICATION: Hypoxia. TECHNIQUE: Portable AP frontal chest x-ray was obtained. Comparison is made to prior examination from 07/14/2021. FINDINGS: There is cardiomegaly and pulmonary vascular congestion. There is indistinct reticulation w ith a bibasal predominance which may indicate pulmonary edema. Pneumonia not excludable. No pneumotho rax or pleural effusion. There are mild bony degenerative changes. IMPRESSION: Findings consistent with CHF exacerbation. Pneumonia not excludable. Reviewed, dictated and finalized at location B. IMPRESSION: Findings consistent with CHF exacerbation. Pneumonia not excludabl e.
--- NOTE | ~2021-07-14 | CT_ITS ---
EXAMINATION: CT abdomen pelvis w con EXAM DATE: 07/15/2021 15:33 INDICATION: Abdominal pain and iron deficiency anemia. TECHNIQUE: Spiral CT of the abdomen and pelvis was performed following intravenous injection of 100 m L Omnipaque 350. Axial, coronal and sagittal images of the abdomen and pelvis were reviewed. The do se-length product (DLP) for this examination was 1486.41 mGy-cm. The exposure was tailored according to patient size (auto mA exposure control), and iterative reconstruction (ASIR) was used as addition al dose reduction technique. Correlation is made to pulmonary CT 02/05/2021. FINDINGS: There is hepatomegaly with diffusely heterogeneous enhancement which potentially could be f rom passive venous congestion given the cardiomegaly. Cirrhosis is another possibility. Spleen is nor mal in size. Pancreas and adrenal glands are unremarkable. Gallbladder not identified, patient likely has had cholecystectomy. Portal and splenic veins are patent. Kidneys enhance symmetrically. Ther e is no hydronephrosis. The uterus is unremarkable. The bladder is unremarkable. There is no ret roperitoneal or pelvic lymphadenopathy. There are no findings to suggest appendicitis. The stomach and small bowel are unremarkable. There is expected amount of colonic stool. No free intraperitoneal gas. There is cardiomegaly and inter lobular septal thickening suspicious for pulmonary edema. There is right infrahilar lymphadenopathy, probably reactive (correlate with prior PET/CT, pulmonary CT reports). There are no osteoblastic or osteolytic lesions identified. Moderate to severe disc disease L2-S1. IMPRESSION: 1. Findings consistent with mild CHF exacerbation. 2. Heterogeneous enlarged liver, could be passive venous congestion or cirrhosis. 3. Chronic right hilar lymphadenopathy probably reactive. Reviewed, dictated and finalized at location B. IMPRESSION: 1. Findings consistent with mild CHF exacerbation. 2. Heterogeneous enlarged liver, could be passive venous congestion or cirrhos is. 3. Chronic right hilar lymphadenopathy probably reactive.
--- NOTE | ~2021-07-14 | XR_ITS ---
EXAMINATION: XR chest 1V portable INDICATION: Shortness of breath TECHNIQUE: Portable AP chest at 1105 hours COMPARISON: 04/15/2021 FINDINGS: There are diffuse interstitial and airspace opacities with a mid and lower lung zone promin ence. Cardiomegaly is noted. No definite pleural effusion or pneumothorax is identified. IMPRESSION: 1. Cardiomegaly. 2. Interstitial and airspace opacities which may reflect pulmonary edema. Reviewed, dictated and finalized at location A.
--- NOTE | 2021-07-14 10:51 | ECG_ITS ---
Measurements Intervals [place] Rate: 74 P: 59 NE: 166 QRS: 3 QRSD: 94 T: 96 QT: 398 QTc: 443 Interpretive Statements SINUS RHYTHM POSSIBLE LEFT ATRIAL ENLARGEMENT INCOMPLETE RIGHT BUNDLE BRANCH BLOCK NONSPECIFIC T-WAVE ABNORMALITY- LAT/HIGH LAT LEADS BASELINE ARTIFACT- I, II, AVR, AVL, V1-V2 BORDERLINE ECG Electronically Signed On 07-14-2021 11:50:07 CDT by Jett Hopkins D.O.
--- NOTE | 2021-07-14 11:17 | PC.NURSE ---
Pt. states she feels a bit better; pul ox 100% on 10 L, O2 decreased to 8 via NR.
[2021-07-14 12:13] LABS: Basophils Percent Auto 0.5 % (0.2-1.2); Eosinophils Percent Auto 0.5 % (0-4.4); Hematocrit 23.7 % (37.0-47.0); Immature Granulocyte Absolute 0.01 K/mm3 (0.00-0.031); Immature Granulocyte Percent A 0.1 % (0-0.5); Immature Platelet Fraction Pct 7.7 % (0.9-11.2); Lymphocytes Absolute Auto 0.87 K/mm3 (0.9-3.2); Lymphocytes Percent Auto 10.7 % (18.3-44.2); Mean Corpuscular HGB Conc 27.4 g/dl (32-36); Mean Corpuscular Hemoglobin 20.4 pg (26-34); Mean Corpuscular Volume 74.5 fl (80-100); Mean Platelet Volume 10.4 fl (7.4-10.4); Monocytes Absolute Auto 0.4 K/mm3 (0.1-0.6); Monocytes Percent Auto 4.3 % (2.6-8.5); Neutrophils Absolute Auto 6.8 K/mm3 (1.3-6.7); Neutrophils Percent Auto 83.9 % (45.5-73.1); Platelet Count Result 282 k/mm3 (150-375); Red Blood Count 3.18 M/mm3 (4.2-5.4); Red Cell Distribution Width 20.1 % (11.5-14.5); White Blood Count 8.1 K/mm3 (4.5-10.0)
[2021-07-14 12:17] LABS: Hemoglobin 6.5 g/dL (12.0-15.0)
[2021-07-14 12:31] LABS: Alveolar/Arterial O2 Gradient 630.3 mmHg; Base Excess ABG 1.2 mEq/l (+/-2.0); Fractional Inspired Oxygen 100 %; HCO3 ABG 26.2 mEq/l (22.0-26.0); Oxygen Content ABG 6.9 %vol (16.0-22.0); Oxyhemoglobin 65.3 % THb (90.0-100.0); PCO2 ABG 43.9 mmHg (35.0-45.0); PO2 FiO2 Ratio Arterial Blood 0.39 %; pH ABG 7.394 (7.350-7.450)
[2021-07-14 12:32] LABS: PO2 ABG 38.8 mmHg (80.0-100.0)
[2021-07-14 12:33] LABS: Device NON-REBREATHER MASK; Modified Allen's Test Pass; Oxygen Saturation ABG 72.8 % (95.0-100.0); Site Drawn LEFT RADIAL; Total Hemoglobin 7.5 g/dL (12.0-18.0)
[2021-07-14 12:33] LABS: INR 1.4; Prothrombin Time 17.3 Seconds (11.1-14.7)
[2021-07-14 12:34] LABS: Hypochromasia 3+ (NORMAL); Partial Thromboplastin Time 32.6 SECONDS (22.3-36.8); Platelet Estimate Adequate (Adequate); Target Cells 1+ (NORMAL)
--- NOTE | 2021-07-14 12:39 | ED.SOB ---
HPI - SOB/Dyspnea General Chief Complaint: Shortness of Breath/Dyspnea Stated Complaint: WEAKNESS/SOB Time Seen by Provider: 07/14/21 10:48 Source: patient, EMS and RN notes reviewed Mode of arrival: EMS History of Present Illness HPI Narrative: Patient is 61 years old -Turkish female lives alone, presents with increased shortness of breath over the last 48 hours, patient on chronic oxygen 4 L by nasal cannula, patient is full code, did not get vaccinated for COVID-19 patient denies any fever, chills, nausea, vomiting, chest pain. Related Data Home Medications Medication Instructions Recorded Confirmed aspirin [Aspir-81] 81 mg PO DAILY 09/08/19 04/07/21 atorvastatin 40 mg PO DAILY 09/08/19 04/07/21 ezetimibe 10 mg PO DAILY 09/08/19 04/07/21 polysaccharide iron complex 150 mg PO BID 07/11/20 04/07/21 [Poly-Iron] amlodipine 10 mg PO DAILY 02/05/21 04/07/21 metformin 500 mg PO DAILY 04/07/21 04/07/21 polyethylene glycol 3350 [Miralax] 17 g PO QAM PRN 04/07/21 04/07/21 Allergies Allergy/AdvReac Type Severity Reaction Status Date / Time Penicillins Allergy Hives Verified 07/14/21 11:18 Sulfa (Sulfonamide Allergy Itching Verified 07/14/21 11:18 Antibiotics) Review of Systems Review of Systems: CONSTITUTIONAL: Denies fever, chills, or sweats. EYES: Denies visual changes, redness, or discharge. ENT: Denies rhinorrhea, congestion, sore throat, or otalgia. CARDIOVASCULAR: Denies chest pain, palpitations, or edema. RESPIRATORY: Denies cough or dyspnea. GASTROINTESTINAL: Denies abdominal pain, nausea, vomiting, or diarrhea. GENITOURINARY: Denies dysuria or hematuria. SKIN: Denies rash or itching. MUSCULOSKELETAL: Denies back pain, joint pain, or myalgia. NEUROLOGIC: Denies headache, numbness, or weakness. PSYCHIATRIC: Denies anxiety or depression. [facility] Past Medical History Medical History Acute on chronic blood loss anemia Adrenal mass Anemia Chronic hypoxemic respiratory failure COPD (chronic obstructive pulmonary disease) Diabetes mellitus Hyperlipidemia Hypertension Lung nodule 11 mm Tobacco abuse 35 pack year, quit Aug 2019. Surgical History Surgical History H/O section x3 H/O colonoscopy with polypectomy H/O esophagogastroduodenoscopy History of appendectomy Hx of cholecystectomy Family History Family History Grandparent Congestive heart failure Mother HTN (hypertension) with goal to be determined Hyperlipidemia Cancer Sibling Age: 54 HTN (hypertension) with goal to be determined Asthma Lupus Sibling Age: 51 Diabetes mellitus Heart disease Social History Social History Social History: The patient typically smoked 1 pack a cigarettes a day for 35 years. she said she stop smoking August of 2019. She has 3 children. She is unemployed at this time. She does not have a durable power commercial real estate attorney. But wants to be a full code. She became disabled many years ago 2007 when she injured her back. 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 She lives with her friend Smoking packs per day: 0.5 Smoking cigarettes per day: 10.0 Years smoked: 25 Smoking pack-years: 12.50 Smoking status: Former smoker Smoking end date: 10/30/18 Alcohol intake: former Alcohol use details: Drank more in the past, occasional use now. Substance use: former Additional living arrangements comments: Lives with her sister. 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 Gender identity (if verbalized by the patient): Female Spiritual care concerns: No Agree to blood products: Yes
[2021-07-14] MEDS: PANTOPRAZOLE SODIUM IV 40 MG VIAL IV PUSH (12:59)
[2021-07-14] MEDS: SODIUM CHLORIDE 0.9% IV 250 ML 30 ML IV CONT (15:25)
[2021-07-14 15:27] LABS: Albumin Level 3.7 g/dL (3.5-5.1); Alkaline Phosphatase 101 U/L (38-126)
[2021-07-14 15:28] LABS: Aspartate Amino Transferase 35 U/L (14-36); Bilirubin,Total 0.5 mg/dL (0.2-1.3); Sodium 142 mmol/L (137-145)
[2021-07-14 15:29] LABS: Alanine Aminotransferase 9 U/L (4-35); Anion Gap 10 mmol/L (8-16); Blood Urea Nitrogen 20 mg/dL (7-17); Calcium 8.8 mg/dL (8.4-10.2); Carbon Dioxide 26 mmol/L (22-30); Chloride 106 mmol/L (98-107); Estimated CRCL calculation 84 ml/min; Estimated Glomerular Filt Rate > 60; Glucose 127 mg/dL (65-110); Potassium 3.7 mmol/L (3.4-5.0)
[2021-07-14 15:30] LABS: Troponin I < 0.012 ng/mL (0.000-0.034)
[2021-07-14 15:55] LABS: NT Pro B Type Natriuretic Pept 2240 pg/mL (5-100)
[2021-07-14 16:10] LABS: Total Protein 7.8 g/dL (6.3-8.2)
[2021-07-14 16:16] LABS: Hematocrit 28.7 % (37.0-47.0); Hemoglobin 8.3 g/dL (12.0-15.0)
[2021-07-14 16:38] LABS: Troponin I < 0.012 ng/mL (0.000-0.034)
[2021-07-14 16:40] LABS: INR 1.5; Partial Thromboplastin Time 32.2 SECONDS (22.3-36.8); Prothrombin Time 17.9 Seconds (11.1-14.7)
--- NOTE | 2021-07-14 16:47 | PM.IMHP ---
H&P: HPI History of Present Illness Date/Time: 07/14/21 16:47 this is a 61 who has a history of COPD and chronic respiratory failure on oxygen at 4 L per nasal cannula. The patient presented to the hospital for complaints of shortness of breath that started 48 hours ago. The patient stated that she did turn her oxygen up to 5 L per nasal cannula. The patient stated she had not been tested for COVID she has not had her COVID vaccine. She denied any fever chills nausea vomiting or chest pain. She did complain of some generalized weakness. The patient has a history of chronic anemia and has had blood transfusions in the past. The patient stated that she has had a hold anemic workup as well as GI workup and was found to have erosive gastritis in the past and had been on a PPI. Today her H&H is 6.5 and 23.7. The patient was transfused with blood and her H&H is now 8.3 and 28.7. Chest x-ray was read as cardiomegaly. Interstitial and airspace opacities which may reflect pulmonary edema. The patient was transfused and given Protonix. The patient was placed on 15 L non-rebreather. BNP is noted to be 2240. Patient's COVID PCR is pending. The patient is being admitted to inpatient services on the date of service of 07/14/2021. Chief Complaint: Shortness of breath Review of Systems Review of Systems: All systems reviewed & are unremarkable except as noted in HPI and below Constitutional: Constitutional: Reports as per HPI and Reports no additional constitutional complaints Eyes: Eyes: Reports as per HPI and Reports no additional eye complaints ENT: Reports system reviewed and no additional complaints, except as documented and Reports Normal hearing present Cardiovascular: Cardiovascular: Reports no additional cardiovascular complaints Respiratory: Respiratory: Reports no additional respiratory complaints and Reports no additional respiratory complaints Gastrointestinal: Gastrointestinal: Reports as per HPI and Reports no additional gastrointestinal complaints Musculoskeletal: Musculoskeletal: Reports no additional musculoskeletal complaints Integumentary/Breasts: Skin/Breast: Reports system reviewed and no additional complaints, except as docu and Reports as per HPI Neurologic: Reports system reviewed and no additional complaints, except as documented, Reports as per HPI and Reports Normal hearing present Psychiatric: Psychiatric: Reports no additional psychiatric complaints and Reports as per HPI Endocrine: Endocrine: Reports no additional endocrine complaints Hematologic/Lymphatic: Hematologic/Lymphatic: Reports no additional hematologic/lymphatic complaints Allergic/Immunologic: Allergic/Immunologic: Reports no additional allergic/immunologic complaints PMFSH Past Medical History Medical History Acute on chronic blood loss anemia Adrenal mass Anemia Chronic hypoxemic respiratory failure COPD (chronic obstructive pulmonary disease) Diabetes mellitus Hyperlipidemia Hypertension Lung nodule 11 mm Tobacco abuse 35 pack year, quit Aug 2019. Surgical History Surgical History H/O section x3 H/O colonoscopy with polypectomy H/O esophagogastroduodenoscopy History of appendectomy Hx of cholecystectomy Family History Family History Grandparent Congestive heart failure Mother HTN (hypertension) with goal to be determined Hyperlipidemia Cancer Sibling Age: 54 HTN (hypertension) with goal to be determined Asthma Lupus Sibling Age: 51 Diabetes mellitus Heart disease Social History Social History Social History: The patient typically smoked 1 pack a cigarettes a day for 35 years. she said she stop smoking August of 2019. She has 3 children. She is unemployed at this time. She does not have a
[2021-07-14 18:00] LABS: Troponin I < 0.012 ng/mL (0.000-0.034)
[2021-07-14] MEDS: FUROSEMIDE INJ 40 MG/4 ML VIAL IV PUSH (18:29)
[2021-07-14 19:40] LABS: Glucose Point of Care 142 mg/dl (65-105)
--- NOTE | 2021-07-14 21:00 | ADMGEN ---
This patient, Maura Hill, was admitted to [facility] Room [facility]01. Patient/family oriented to hospital policies and general routines including ID bracelet, bed and alarms, visiting hours, pain management, procedures, bathroom and other care routines, personal items, smoking policy, room service/diet, and visiting hours. Information on how to activate the Rapid Response Team has been discussed. Patient/Family are encouraged to report perceived risks to care and to ask questions if they do not understand what they are told or what they should do.
[2021-07-14 21:54] LABS: Hematocrit 33.8 % (37.0-47.0); Hemoglobin 9.9 g/dL (12.0-15.0)
[2021-07-14 22:41] LABS: SARS-CoV-2 RNA PCR Negative
[2021-07-14 23:49] LABS: Glucose Point of Care 103 mg/dl (65-105)
[2021-07-15] VITALS (18 sets, daily range): BP systolic 100–117; BP diastolic 52–69; PULSE 59–80; RESP 18–20; TEMP 35.9–36.8; O2SAT 85–98
[2021-07-15 01:24] LABS: Hematocrit 27.2 % (37.0-47.0)
[2021-07-15 06:51] LABS: Hematocrit 28.1 % (37.0-47.0)
[2021-07-15 07:06] LABS: Lactic Acid Reflex 0.8 mmol/L (0.7-2.1)
[2021-07-15 07:12] LABS: Alanine Aminotransferase 7 U/L (4-35); Albumin Level 3.6 g/dL (3.5-5.1); Alkaline Phosphatase 100 U/L (38-126); Anion Gap 10 mmol/L (8-16); Aspartate Amino Transferase 28 U/L (14-36); Bilirubin,Total 0.8 mg/dL (0.2-1.3); Blood Urea Nitrogen 18 mg/dL (7-17); Calcium 8.8 mg/dL (8.4-10.2); Carbon Dioxide 24 mmol/L (22-30); Chloride 107 mmol/L (98-107); Estimated CRCL calculation 83 ml/min; Estimated Glomerular Filt Rate > 60; Glucose 138 mg/dL (65-110); Lactate Dehydrogenase 489 U/L (313-618); Magnesium 2.3 mg/dL (1.6-2.3); Phosphorus 3.9 mg/dL (2.5-4.5); Potassium 3.5 mmol/L (3.4-5.0); Sodium 141 mmol/L (137-145)
--- NOTE | 2021-07-15 07:20 | P.PNIM_ITS ---
Progress Note: A&P Assessment and Plan (1) Acute on chronic respiratory failure with hypoxemia: Code(s): J96.21 - Acute and chronic respiratory failure with hypoxia Status: Resolved Assessment and Plan: * 15 L non-rebreather in emergency room * oxygen at 4-5 L at home. * Hx of COPD * Supplemental oxygen, wean to maintain saturation >90% * Neb treatments * Continue home Incruse ellipta 1 puff daily * Trend SPO2 * Covid negative (2) CHF exacerbation: Qualifiers: Heart failure type: diastolic Qualified Code(s): I50.33 - Acute on chronic diastolic (congestive) heart failure Code(s): I50.9 - Heart failure, unspecified Status: Resolved Assessment and Plan: * Chest xray shows possible pulmonary edema * Acute on chronic exacerbation * IV lasix 40mg IV BID, (Home dose 20mg PO BID) * ECHO from January of -70, will repeat with the great oxygen demand * repeat chest xray tomorrow morning * Strict I&O (3) COPD (chronic obstructive pulmonary disease): Qualifiers: COPD type: unspecified COPD Qualified Code(s): J44.9 - Chronic obstructive pulmonary disease, unspecified Code(s): J44.9 - Chronic obstructive pulmonary disease, unspecified Status: Chronic Assessment and Plan: * Chronic oxygen use 4LNC * Continue home medications Incruse ellipta 1 puff daily, symbicort 2 puff BID, albuterol nebs * Supplemental oxygen, wean to maintain saturation >90% * Consider multiple small meals * Smoking cessation education (4) HTN (hypertension), malignant: Code(s): I10 - Essential (primary) hypertension Status: Chronic Assessment and Plan: * Current blood pressure 117/58 * Continue home amlodipine 10mg PO daily * Trend BP * Adjust medications as needed (5) Diabetes mellitus: Qualifiers: Diabetes mellitus complication status: with hyperglycemia Diabetes mellitus terminal press operator insulin use: without fci use Diabetes mellitus type: type 2 Qualified Code(s): E11.65 - Type 2 diabetes mellitus with hyperglycemia Code(s): E11.9 - Type 2 diabetes mellitus without complications Status: Chronic Assessment and Plan: * glucose on labs 138 * Accu-Cheks AC and HS * A1c 6.0 * hypoglycemia protocol * Hold metformin for now * Insulin sliding scale * Trend glucose * Adjust medications as needed (6) Erosive gastritis: Code(s): K29.60 - Other gastritis without bleeding Status: Acute Assessment and Plan: * HX of erosive gastritis * GI consult thank you for recommendations * Trend H/H * Continue protonix 40mg IV daily (7) Acute on chronic blood loss anemia: Code(s): D62 - Acute posthemorrhagic anemia Status: Acute Assessment and Plan: * Upon arrival H/H 6.5/23.7 * Received 2 units PRBC * Current H/H 8/28.1 down from 9.9/33.8 after transfusion * chest xray shows pulmonary edema- could be dilutional, unlikely * H&H every 6 hours. * Consult GI and Hematology thank you for recommendations * Transfuse as necessary. * According to patient EGD tomorrow (8) Obstructive sleep apnea: Code(s): G47.33 - Obstructive sleep apnea (adult) (pediatric) Status: Acute Assessment and Plan: * Continue with home CPAP. (9) Suspected COVID-19 virus infection: Code(s): Z20.822 - Contact with and (suspec
--- NOTE | 2021-07-15 07:20 | PM.IMPN ---
Progress Note: A&P Assessment and Plan (1) Acute on chronic respiratory failure with hypoxemia: Code(s): J96.21 - Acute and chronic respiratory failure with hypoxia Status: Resolved Assessment and Plan: 15 L non-rebreather in emergency room oxygen at 4-5 L at home. Hx of COPD Supplemental oxygen, wean to maintain saturation >90% Neb treatments Continue home Incruse ellipta 1 puff daily Trend SPO2 Covid negative (2) CHF exacerbation: Qualifiers: Heart failure type: diastolic Qualified Code(s): I50.33 - Acute on chronic diastolic (congestive) heart failure Code(s): I50.9 - Heart failure, unspecified Status: Resolved Assessment and Plan: Chest xray shows possible pulmonary edema Acute on chronic exacerbation IV lasix 40mg IV BID, (Home dose 20mg PO BID) ECHO from January of -70, will repeat with the great oxygen demand repeat chest xray tomorrow morning Strict I&O (3) COPD (chronic obstructive pulmonary disease): Qualifiers: COPD type: unspecified COPD Qualified Code(s): J44.9 - Chronic obstructive pulmonary disease, unspecified Code(s): J44.9 - Chronic obstructive pulmonary disease, unspecified Status: Chronic Assessment and Plan: Chronic oxygen use 4LNC Continue home medications Incruse ellipta 1 puff daily, symbicort 2 puff BID, albuterol nebs Supplemental oxygen, wean to maintain saturation >90% Consider multiple small meals Smoking cessation education (4) HTN (hypertension), malignant: Code(s): I10 - Essential (primary) hypertension Status: Chronic Assessment and Plan: Current blood pressure 117/58 Continue home amlodipine 10mg PO daily Trend BP Adjust medications as needed (5) Diabetes mellitus: Qualifiers: Diabetes mellitus complication status: with hyperglycemia Diabetes mellitus snf insulin use: without terminal gauger use Diabetes mellitus type: type 2 Qualified Code(s): E11.65 - Type 2 diabetes mellitus with hyperglycemia Code(s): E11.9 - Type 2 diabetes mellitus without complications Status: Chronic Assessment and Plan: glucose on labs 138 Accu-Cheks AC and HS A1c 6.0 hypoglycemia protocol Hold metformin for now Insulin sliding scale Trend glucose Adjust medications as needed (6) Erosive gastritis: Code(s): K29.60 - Other gastritis without bleeding Status: Acute Assessment and Plan: HX of erosive gastritis GI consult thank you for recommendations Trend H/H Continue protonix 40mg IV daily (7) Acute on chronic blood loss anemia: Code(s): D62 - Acute posthemorrhagic anemia Status: Acute Assessment and Plan: Upon arrival H/H 6.5/23.7 Received 2 units PRBC Current H/H 28.1 down from 9.9/33.8 after transfusion chest xray shows pulmonary edema- could be dilutional, unlikely H&H every 6 hours. Consult GI and Hematology thank you for recommendations Transfuse as necessary. According to patient EGD tomorrow (8) Obstructive sleep apnea: Code(s): G47.33 - Obstructive sleep apnea (adult) (pediatric) Status: Acute Assessment and Plan: Continue with home CPAP. (9) Suspected COVID-19 virus infection: Code(s): Z20.822 - Contact with and (suspected) exposure to COVID-19 Status: Acute Assessment and Plan: PCR covid negative Ruled out at this time Time Spent With Patient Time with patient: 25 - 35 minutes Subjective Date/time seen: 07/15/21 07:21 Interval history: Patient is a 61 year old here for shortness of breath. Patient stated that she is feeling ok today. She is a bit worried about the blood loss. She did get 2 units of packed red blood cells yesterday. This did take his H/H up to 06/25.7. Most recent is 8./.1. Patient also talked to me about her oxyge
[2021-07-15] MEDS: PANTOPRAZOLE 40 MG TABLET PO (09:06)
[2021-07-15] MEDS: ATORVASTATIN 40 MG TABLET PO (09:06)
[2021-07-15] MEDS: ASPIRIN 81 MG ENTERIC TABLET PO (09:06)
[2021-07-15] MEDS: EZETIMIBE 10 MG TABLET PO (09:06)
[2021-07-15] MEDS: POLYSACCHARIDE IRON COMPLEX 150 MG CAPSULE PO ×2 (09:06→16:47)
[2021-07-15] MEDS: amLODIPine BESYLATE 5 MG TABLET 10 MG PO (09:09)
[2021-07-15 09:11] LABS: Glucose Point of Care 121 mg/dl (65-105)
[2021-07-15] MEDS: ALBUTEROL SULFATE (*SP) AEROSOL 1 PUFF 2 PUFF INHALATION ×4 (09:19→20:56)
[2021-07-15] MEDS: UMECLIDINIUM BROMIDE 62.5 MCG ELLIPTA 1 PUFF INHALATION (09:22)
[2021-07-15 11:41] LABS: Glucose Point of Care 180 mg/dl (65-105)
[2021-07-15] MEDS: FUROSEMIDE INJ 40 MG/4 ML VIAL IV PUSH ×2 (11:45→16:48)
[2021-07-15] MEDS: PANTOPRAZOLE SODIUM IV 40 MG VIAL IV PUSH (11:45)
[2021-07-15 11:55] LABS: Hematocrit 28.1 % (37.0-47.0); Hemoglobin 8.2 g/dL (12.0-15.0)
[2021-07-15 12:03] LABS: Lactate Dehydrogenase 461 U/L (313-618)
[2021-07-15 12:24] LABS: Iron 26 ug/dL (37-170)
[2021-07-15 12:34] LABS: Percent Iron Saturation 7 % (20-50)
--- NOTE | 2021-07-15 12:42 | PDONCCN ---
HPI - Date of Consult Date/Time: 07/15/21 12:42 Requesting Physician: Renate Herman MD Primary Care Provider: Tessy MurilloMendez - Consult Narrative Reason for consult: Microcytic anemia Narrative: Maura Hill is a 61 year old female with history of COPD and chronic respiratory failure. Patient is on 4 L of oxygen per nasal cannula. She also has a history of iron deficiency anemia. Patient had EGD done in March of 2021 that showed erosive gastritis. Patient came into the hospital with complain of abdominal pain mainly in the left upper quadrant. She was complaining of generalized tiredness and fatigue. Labs showed hemoglobin of 6.5. She has dark stool but she is taking oral iron twice a day. She denies any other bleeding complain. She denies being a vegetarian. Patient received 2 units of packed red blood cell with improvement in hemoglobin. According to the chart review patient had colonoscopy previously that showed internal hemorrhoids. Review of Systems - Review of Systems All systems reviewed & are unremarkable except as noted in HPI and bel - Neurologic Reports system reviewed and no additional complaints, except as documented, Reports hearing normal [facility] Medical History: Medical History (Last Reviewed 07/14/21 @ 12:47 by Joes Molina MD) Acute on chronic blood loss anemia Adrenal mass Anemia Chronic hypoxemic respiratory failure COPD (chronic obstructive pulmonary disease) Diabetes mellitus Hyperlipidemia Hypertension Lung nodule 11 mm Tobacco abuse 35 pack year, quit Aug 2019. Surgical History: Surgical History (Last Reviewed 07/14/21 @ 16:55 by Sarah London NP) H/O section x3 H/O colonoscopy with polypectomy H/O esophagogastroduodenoscopy History of appendectomy Hx of cholecystectomy Family History: Family History (Last Reviewed 07/14/21 @ 16:55 by Sarah London NP) Grandparent Congestive heart failure Mother HTN (hypertension) with goal to be determined Hyperlipidemia Cancer Sibling Age: 54 HTN (hypertension) with goal to be determined Asthma Lupus Sibling Age: 51 Diabetes mellitus Heart disease - Social History Social History: Social History (Last Reviewed 07/14/21 @ 12:47 by Jose Molina MD) Gender Identity: Gender identity (if verbalized by the patient): Female Alcohol Use: Alcohol intake: never Alcohol use details: Drank more in the past, occasional use now. Substance Use: Substance use: never Substance use type: does not use Others: Spiritual care concerns: Yes Spiritual care concerns comment: orthodox Agree to blood products: Yes Smoking Status: Smoking status: Former smoker Tobacco type: cigarettes Smoking end date: 10/30/18 Approximate Smoking End Date: 2018 Smoking Pack-years: Smoking packs per day: 2 Smoking cigarettes per day: 40.0 Years smoked: 30 Smoking pack-years: 60.00 Meds Home Medications Medication Instructions Recorded Confirmed Type aspirin [Aspir-81] 81 mg PO DAILY 09/08/19 07/14/21 History atorvastatin 40 mg PO DAILY 09/08/19 07/14/21 History ezetimibe 10 mg PO DAILY 09/08/19 07/14/21 History albuterol sulfate 2 puff INHALATION QID #6.7 gm 09/12/19 07/14/21 Rx polysaccharide iron complex 150 mg PO BID 07/11/20 07/14/21 History [Poly-Iron] umeclidinium 62.5 mcg/actuation 1 inhalation INHALATION Q24H #30 07/24/20 07/14/21 Rx blister powder for inhalation each amlodipine 10 mg PO DAILY 02/05/21 07/14/21 History budesonide-formoterol [Symbicort] 2 puff INHALATION Q12HRT #10.2 g 02/09/21 07/14/21 Rx furosemide [Lasix] 20 mg PO BID #60 tablet 02/09/21 07/14/21 Rx pantoprazole 40 mg PO QAM #30 tablet 02/09/21 07/14/21 Rx metformin 500 mg PO DAILY 04/07/21 07/14/21 History polyethylene glycol 3350 [Miralax] 17 g PO QAM PRN 04/07/21 07/14/21 History Allergies Allergy/AdvReac Type Severity Reaction Status
[2021-07-15 13:06] LABS: Folic Acid 13.2 ng/mL (2.76->20)
--- NOTE | 2021-07-15 17:20 | WPDGICN ---
Assessment and Plan Assessment and plan (1) Acute on chronic blood loss anemia: Code(s): D62 - Acute posthemorrhagic anemia Status: Acute Assessment and Plan: admitted again with worsening shortness of breath and symptomatic anemia that required PRBC egd in am to assess if ulcers, etc already had colonoscopy last year if work up negative then will do SB capsule endoscopy as outpatient iv iron ordered by hematology (2) Acute on chronic respiratory failure with hypoxemia: Code(s): J96.21 - Acute and chronic respiratory failure with hypoxia Status: Resolved Assessment and Plan: medical support (3) Erosive gastritis: Code(s): K29.60 - Other gastritis without bleeding Status: Acute Assessment and Plan: on ppi (4) Obstructive sleep apnea: Code(s): G47.33 - Obstructive sleep apnea (adult) (pediatric) Status: Acute (5) Congestive heart failure: Code(s): I50.9 - Heart failure, unspecified Status: Acute GI Consult Note Consult date/time: 07/15/21 17:20 HPI: Maura Hill is a 61 year old female with history of COPD and chronic respiratory failure using oxygen at home, also history of chronic iron deficiency anemia (hb ~ 8) with previous evaluation 06/[address] Wilkerson with EGD that showed non-bleeding gastric ulcers, colonoscopy only hemorrhoids and repeat EGD in March of 2021 that showed erosive gastritis. Patient came to ER with generalized tiredness and fatigue. Blood work again showed drop in hemoglobin 6.5, given blood transfusion and feeling better now. She also has dark stool but she is taking oral iron twice a day. She also has seen hematology. Review of Systems Constitutional: Constitutional: Reports fatigue Eyes: Eyes: Denies blurry vision ENT: Reports Normal hearing present Cardiovascular: Cardiovascular: Denies chest pain Respiratory: Respiratory: Reports dyspnea on exertion Gastrointestinal: Gastrointestinal: Denies vomiting Genitourinary: Genitourinary: Denies hematuria Musculoskeletal: Musculoskeletal: Denies neck pain Integumentary/Breasts: Skin/Breast: Denies dry skin Neurologic: Denies numbness Psychiatric: Psychiatric: Reports no additional psychiatric complaints PMFSH Past Medical History Medical History Acute on chronic blood loss anemia Adrenal mass Anemia Chronic hypoxemic respiratory failure COPD (chronic obstructive pulmonary disease) Diabetes mellitus Hyperlipidemia Hypertension Lung nodule 11 mm Tobacco abuse 35 pack year, quit Aug 2019. Surgical History Surgical History H/O section x3 H/O colonoscopy with polypectomy H/O esophagogastroduodenoscopy History of appendectomy Hx of cholecystectomy Family History Family History Grandparent Congestive heart failure Mother HTN (hypertension) with goal to be determined Hyperlipidemia Cancer Sibling Age: 54 HTN (hypertension) with goal to be determined Asthma Lupus Sibling Age: 51 Diabetes mellitus Heart disease Social History Social History Social History: The patient typically smoked 1 pack a cigarettes a day for 35 years. she said she stop smoking August of 2019. She has 3 children. She is unemployed at this time. She does not have a durable power civil litigation attorney. But wants to be a full code. She became disabled many years ago 2007 when she injured her back. 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 She lives with her friend Smoking packs per day: 2 Smoking cigarettes per day: 40.0 Years smoked: 30 Smoking pack-years: 60.00 Smoking status: Former smoker Tobacco type: cigarettes Smoking end date: 10/30/18 Alcohol intake: never Alcohol
[2021-07-15 17:25] LABS: Glucose Point of Care 166 mg/dl (65-105)
[2021-07-15 17:56] LABS: Hematocrit 30.1 % (37.0-47.0); Hemoglobin 8.8 g/dL (12.0-15.0)
[2021-07-15] MEDS: GABAPENTIN 100 MG CAPSULE PO (18:05)
[2021-07-15 22:55] LABS: Glucose Point of Care 144 mg/dl (65-105)
[2021-07-16] VITALS (18 sets, daily range): BP systolic 92–125; BP diastolic 50–74; PULSE 69–83; RESP 16–22; TEMP 36.3–36.7; O2SAT 89–100
[2021-07-16 00:30] LABS: Hematocrit 26.6 % (37.0-47.0); Hemoglobin 7.8 g/dL (12.0-15.0)
[2021-07-16 06:51] LABS: Basophils Percent Auto 0.2 % (0.2-1.2); Eosinophils Absolute Auto 0.1 K/mm3 (0-0.3); Eosinophils Percent Auto 1.1 % (0-4.4); Hematocrit 26.9 % (37.0-47.0); Immature Granulocyte Absolute 0.03 K/mm3 (0.00-0.031); Immature Granulocyte Percent A 0.3 % (0-0.5); Lymphocytes Absolute Auto 0.96 K/mm3 (0.9-3.2); Lymphocytes Percent Auto 10.2 % (18.3-44.2); Mean Corpuscular HGB Conc 29.7 g/dl (32-36); Mean Corpuscular Hemoglobin 22.1 pg (26-34); Mean Corpuscular Volume 74.3 fl (80-100); Mean Platelet Volume 10.5 fl (7.4-10.4); Monocytes Absolute Auto 0.5 K/mm3 (0.1-0.6); Monocytes Percent Auto 5.2 % (2.6-8.5); Neutrophils Absolute Auto 7.8 K/mm3 (1.3-6.7); Platelet Count Result 239 k/mm3 (150-375); Red Blood Count 3.62 M/mm3 (4.2-5.4); Red Cell Distribution Width 20.6 % (11.5-14.5); White Blood Count 9.4 K/mm3 (4.5-10.0)
[2021-07-16 07:02] LABS: Alanine Aminotransferase 7 U/L (4-35); Albumin Level 3.6 g/dL (3.5-5.1); Alkaline Phosphatase 106 U/L (38-126); Anion Gap 8 mmol/L (8-16); Aspartate Amino Transferase 30 U/L (14-36); Bilirubin,Total 0.6 mg/dL (0.2-1.3); Blood Urea Nitrogen 16 mg/dL (7-17); Calcium 8.9 mg/dL (8.4-10.2); Carbon Dioxide 30 mmol/L (22-30); Chloride 103 mmol/L (98-107); Estimated CRCL calculation 75 ml/min; Estimated Glomerular Filt Rate > 60; Glucose 123 mg/dL (65-110); Magnesium 1.9 mg/dL (1.6-2.3); Potassium 3.1 mmol/L (3.4-5.0); Sodium 141 mmol/L (137-145)
[2021-07-16 08:31] LABS: Glucose Point of Care 114 mg/dl (65-105)
[2021-07-16] MEDS: UMECLIDINIUM BROMIDE 62.5 MCG ELLIPTA 1 PUFF INHALATION (08:36)
[2021-07-16] MEDS: ALBUTEROL SULFATE (*SP) AEROSOL 1 PUFF 2 PUFF INHALATION ×4 (08:37→21:16)
[2021-07-16] MEDS: POLYSACCHARIDE IRON COMPLEX 150 MG CAPSULE PO ×2 (08:45→20:38)
[2021-07-16] MEDS: EZETIMIBE 10 MG TABLET PO (08:46)
[2021-07-16] MEDS: PANTOPRAZOLE SODIUM IV 40 MG VIAL IV PUSH (08:46)
[2021-07-16] MEDS: GABAPENTIN 100 MG CAPSULE PO ×3 (08:46→16:42)
[2021-07-16] MEDS: ATORVASTATIN 40 MG TABLET PO (08:46)
[2021-07-16] MEDS: FUROSEMIDE INJ 40 MG/4 ML VIAL IV PUSH ×2 (08:48→16:42)
[2021-07-16] MEDS: ASPIRIN 81 MG ENTERIC TABLET PO (08:48)
[2021-07-16] MEDS: PANTOPRAZOLE 40 MG TABLET PO (08:48)
[2021-07-16 11:04] LABS: Hypochromasia 2+ (NORMAL); Platelet Estimate Adequate (Adequate)
[2021-07-16 11:05] LABS: Anisocytosis 2+ (NORMAL); Poikilocytosis 1+ (NORMAL); Schistocytes 1+ (NORMAL)
--- NOTE | 2021-07-16 11:06 | P.PNIM_ITS ---
Progress Note: A&P Assessment and Plan (1) Acute on chronic respiratory failure with hypoxemia: Code(s): J96.21 - Acute and chronic respiratory failure with hypoxia Status: Resolved Assessment and Plan: * 15 L non-rebreather in emergency room * oxygen at 4-5 L at home, currently on 5L now * Hx of COPD * Supplemental oxygen, wean to maintain saturation >90% * Neb treatments * Continue home Incruse ellipta 1 puff daily * Trend SPO2 * Covid negative (2) CHF exacerbation: Qualifiers: Heart failure type: diastolic Qualified Code(s): I50.33 - Acute on chronic diastolic (congestive) heart failure Code(s): I50.9 - Heart failure, unspecified Status: Resolved Assessment and Plan: * Chest xray shows possible pulmonary edema * Acute on chronic exacerbation probably a mix bet * IV lasix 40mg IV BID, (Home dose 20mg PO BID) * ECHO from January of 65-70, will repeat with the great oxygen demand * Echo ordered and pending * repeat chest xray Cardiomegaly with developing interstitial edema from 07/16/21 * Strict I&O (3) COPD (chronic obstructive pulmonary disease): Qualifiers: COPD type: unspecified COPD Qualified Code(s): J44.9 - Chronic obstructive pulmonary disease, unspecified Code(s): J44.9 - Chronic obstructive pulmonary disease, unspecified Status: Chronic Assessment and Plan: * Chronic oxygen use 4LNC * Continue home medications Incruse ellipta 1 puff daily, symbicort 2 puff BID, albuterol nebs * Supplemental oxygen, wean to maintain saturation >90% * Consider multiple small meals * Smoking cessation education (4) HTN (hypertension), malignant: Code(s): I10 - Essential (primary) hypertension Status: Chronic Assessment and Plan: * Current blood pressure 100/60 * Continue home amlodipine 10mg PO daily * Trend BP * Adjust medications as needed (5) Diabetes mellitus: Qualifiers: Diabetes mellitus complication status: with hyperglycemia Diabetes mellitus technician terminal and repeater insulin use: without technician terminal and repeater use Diabetes mellitus type: type 2 Qualified Code(s): E11.65 - Type 2 diabetes mellitus with hyperglycemia Code(s): E11.9 - Type 2 diabetes mellitus without complications Status: Chronic Assessment and Plan: * glucose on labs 123 * Accu-Cheks AC and HS * A1c 6.0 * hypoglycemia protocol * Hold metformin for now * Insulin sliding scale * Trend glucose * Adjust medications as needed (6) Erosive gastritis: Code(s): K29.60 - Other gastritis without bleeding Status: Acute Assessment and Plan: * HX of erosive gastritis * GI consult thank you for recommendations * Trend H/H * Continue protonix 40mg IV daily (7) Acute on chronic blood loss anemia: Code(s): D62 - Acute posthemorrhagic anemia Status: Acute Assessment and Plan: * Upon arrival H/H 6.5/23.7 * Received 2 units PRBC * Current H/H 06/24.9 * chest xray shows pulmonary edema- could be dilutional, unlikely * H&H every 6 hours. * Consult GI and Hematology thank you for recommendations * Transfuse as necessary. * EGD today * CT abd/pel right infrahilar lymphadenopathy, probably reactive (correlate with prior PET/CT, pulmonary CT reports), Heterogeneous enlarged liver, could be passive venous congestion or cirrhosis from 07/15/21 * Could need a biopsy of the bone marrow (8) Obstr
--- NOTE | 2021-07-16 11:06 | PM.IMPN ---
Progress Note: A&P Assessment and Plan (1) Acute on chronic respiratory failure with hypoxemia: Code(s): J96.21 - Acute and chronic respiratory failure with hypoxia Status: Resolved Assessment and Plan: 15 L non-rebreather in emergency room oxygen at 4-5 L at home, currently on 5L now Hx of COPD Supplemental oxygen, wean to maintain saturation >90% Neb treatments Continue home Incruse ellipta 1 puff daily Trend SPO2 Covid negative (2) CHF exacerbation: Qualifiers: Heart failure type: diastolic Qualified Code(s): I50.33 - Acute on chronic diastolic (congestive) heart failure Code(s): I50.9 - Heart failure, unspecified Status: Resolved Assessment and Plan: Chest xray shows possible pulmonary edema Acute on chronic exacerbation probably a mix bet IV lasix 40mg IV BID, (Home dose 20mg PO BID) ECHO from January of -70, will repeat with the great oxygen demand Echo ordered and pending repeat chest xray Cardiomegaly with developing interstitial edema from 07/16/21 Strict I&O (3) COPD (chronic obstructive pulmonary disease): Qualifiers: COPD type: unspecified COPD Qualified Code(s): J44.9 - Chronic obstructive pulmonary disease, unspecified Code(s): J44.9 - Chronic obstructive pulmonary disease, unspecified Status: Chronic Assessment and Plan: Chronic oxygen use 4LNC Continue home medications Incruse ellipta 1 puff daily, symbicort 2 puff BID, albuterol nebs Supplemental oxygen, wean to maintain saturation >90% Consider multiple small meals Smoking cessation education (4) HTN (hypertension), malignant: Code(s): I10 - Essential (primary) hypertension Status: Chronic Assessment and Plan: Current blood pressure 100/60 Continue home amlodipine 10mg PO daily Trend BP Adjust medications as needed (5) Diabetes mellitus: Qualifiers: Diabetes mellitus complication status: with hyperglycemia Diabetes mellitus terminal gauger supervisor insulin use: without terminal gauger supervisor use Diabetes mellitus type: type 2 Qualified Code(s): E11.65 - Type 2 diabetes mellitus with hyperglycemia Code(s): E11.9 - Type 2 diabetes mellitus without complications Status: Chronic Assessment and Plan: glucose on labs 123 Accu-Cheks AC and HS A1c 6.0 hypoglycemia protocol Hold metformin for now Insulin sliding scale Trend glucose Adjust medications as needed (6) Erosive gastritis: Code(s): K29.60 - Other gastritis without bleeding Status: Acute Assessment and Plan: HX of erosive gastritis GI consult thank you for recommendations Trend H/H Continue protonix 40mg IV daily (7) Acute on chronic blood loss anemia: Code(s): D62 - Acute posthemorrhagic anemia Status: Acute Assessment and Plan: Upon arrival H/H 6.5/23.7 Received 2 units PRBC Current H/H /26.9 chest xray shows pulmonary edema- could be dilutional, unlikely H&H every 6 hours. Consult GI and Hematology thank you for recommendations Transfuse as necessary. EGD today CT abd/pel right infrahilar lymphadenopathy, probably reactive (correlate with prior PET/CT, pulmonary CT reports), Heterogeneous enlarged liver, could be passive venous congestion or cirrhosis from 07/15/21 Could need a biopsy of the bone marrow (8) Obstructive sleep apnea: Code(s): G47.33 - Obstructive sleep apnea (adult) (pediatric) Status: Acute Assessment and Plan: Continue with home CPAP. (9) Suspected COVID-19 virus infection: Code(s): Z20.822 - Contact with and (suspected) exposure to COVID-19 Status: Acute Assessment and Plan: PCR covid negative Ruled out at this time Time Spent With Patient Time with patient: Greater than 35 minutes Subjective Date/time seen: 07/16/21 10:45 Interval history: Cherrie
[2021-07-16 11:29] LABS: Glucose Point of Care 117 mg/dl (65-105)
--- NOTE | 2021-07-16 13:11 | PC.NURSE ---
Pt went to GI Lab for EGD at 1312 via stretcher.
[2021-07-16] MEDS: LACTATED RINGERS 1,000 ML 150 ML IV CONT (13:32)
[2021-07-16 13:36] LABS: Glucose Point of Care 121 mg/dl (65-105)
--- NOTE | 2021-07-16 13:50 | WPDANESEPPF ---
Anes - Initial Pre Proc Eval Procedure: Operation Date: 07/16/21 14:30 Proposed Procedures p Esophagogastroduodenoscopy - Zeke Tirado MD Date/Time: 07/16/21 13:50 Surgeon: Renate Herman MD Pre Op Diagnosis: Anemia; Dyspnea; Chronic respiratory failure Patient Data Age: 61 Gender: F Height: 1.73 m Weight: 137 kg Last Vital Signs Temp 36.6 C 07/16/21 13:24 Pulse 77 07/16/21 13:24 Resp 20 07/16/21 13:24 BP 125/70 07/16/21 13:24 Pulse Ox 96 07/16/21 13:24 Allergies Allergy/AdvReac Type Severity Reaction Status Date / Time Penicillins Allergy Hives Verified 07/14/21 11:18 Sulfa (Sulfonamide Allergy Itching Verified 07/14/21 11:18 Antibiotics) Home Medications Medication Instructions Recorded Confirmed Type aspirin [Aspir-81] 81 mg PO DAILY 09/08/19 07/14/21 History atorvastatin 40 mg PO DAILY 09/08/19 07/14/21 History ezetimibe 10 mg PO DAILY 09/08/19 07/14/21 History albuterol sulfate 2 puff INHALATION QID #6.7 gm 09/12/19 07/14/21 Rx polysaccharide iron complex 150 mg PO BID 07/11/20 07/14/21 History [Poly-Iron] umeclidinium 62.5 mcg/actuation 1 inhalation INHALATION Q24H #30 07/24/20 07/14/21 Rx blister powder for inhalation each amlodipine 10 mg PO DAILY 02/05/21 07/14/21 History budesonide-formoterol [Symbicort] 2 puff INHALATION Q12HRT #10.2 g 02/09/21 07/14/21 Rx furosemide [Lasix] 20 mg PO BID #60 tablet 02/09/21 07/14/21 Rx pantoprazole 40 mg PO QAM #30 tablet 02/09/21 07/14/21 Rx metformin 500 mg PO DAILY 04/07/21 07/14/21 History polyethylene glycol 3350 [Miralax] 17 g PO QAM PRN 04/07/21 07/14/21 History Laboratory Tests 07/15/21 07/15/21 07/15/21 17:09 17:39 21:51 WBC RBC Hgb 8.8 g/dL L g/dL (12.0-15.0) Hct 30.1 % L % (37.0-47.0) MCV MCH MCHC RDW Plt Count MPV Immature Gran % (Auto) Neut % (Auto) Lymph % (Auto) Greene % (Auto) Eos % (Auto) Baso % (Auto) Lymph # (Auto) Greene # (Auto) Eos # (Auto) Baso # (Auto) Abs Immat Gran (auto) Absolute Neuts (auto) Absolute Nucleated RBC Nucleated RBC % Platelet Estimate % Immature Plt Fraction Hypochromasia Poikilocytosis Anisocytosis Schistocytes Sodium Potassium Chloride Carbon Dioxide Anion Gap BUN Creatinine Estim Creat Clear Calc Estimated GFR Glucose POC Capillary Glucose 166 mg/dl H mg/dl 144 mg/dl H mg/dl (65-105) (65-105) Calcium Magnesium Total Bilirubin AST ALT Alkaline Phosphatase Total Protein Albumin 07/16/21 07/16/21 07/16/21 00:20 05:39 05:39 WBC 9.4 K/mm3 K/mm3 (4.5-10.0) RBC 3.62 M/mm3 L M/mm3 (4.2-5.4) Hgb 7.8 g/dL L g/dL 8.0 g/dL L g/dL (12.0-15.0) (12.0-15.0) Hct 26.6 % L % 26.9 % L % (37.0-47.0) (37.0-47.0) MCV 74.3 fl L fl (80-100) MCH 22.1 pg L D pg (26-34) MCHC 29.7 g/dl L g/dl (32-36) RDW 20.6 % H % (11.5-14.5) Plt Count 239 k/mm3 k/mm3 (150-375) MPV 10.5 fl H fl (7.4-10.4) Immature Gran % (Auto) 0.3 % % (0-0.5) Neut % (Auto) 83.0 % H % (45.5-73.1) Lymph % (Auto) 10.2 % L % (18.3-44.2) Greene % (Auto) 5.2 % % (2.6-8.5) Eos % (Auto) 1.1 % % (0-4.4) Baso % (Auto) 0.2 % % (0.2-1.2) Lymph # (Auto) 0.96 K/mm3 K/mm3 (0.9-3.2) Greene # (Auto) 0.5 K/mm3 K/mm3 (0.1-0.6) Eos # (Aut
[2021-07-16] MEDS: POTASSIUM CHLORIDE 20 MEQ PACKET (FOR LIQUID) 40 MEQ PO (16:41)
[2021-07-16 17:19] LABS: Glucose Point of Care 107 mg/dl (65-105)
[2021-07-16 21:10] LABS: Glucose Point of Care 196 mg/dl (65-105)
[2021-07-17] VITALS (9 sets, daily range): BP systolic 100–110; BP diastolic 47–61; PULSE 69–79; RESP 20; TEMP 36.2–36.6; O2SAT 90–95
--- NOTE | 2021-07-17 | ECHO_ITS ---
Patient Info Name: Maura Hill Age: 61 years : 1960 Gender: Female Ht: 68 in Wt: 298 lbs BSA: 2.62 m2 HR: 71 bpm BP: 105 / 74 mmHg Heart Rhythm: Sinus Rhythm Technical Quality: Good Exam Date: 07/17/2021 7:05 AM Exam Location: [facility] Pulmonary Patient Status: Inpatient Admit Date: 07/14/2021 Staff Ordering Physician: Renate Herman MD [employer] Operator: CELINA Attending Provider: Renate Herman MD Exam Type: CA echo doppler color flow Study Info Complete two-dimensional, color flow and Doppler transthoracic echocardiogram is performed. Summary 1. Complete two-dimensional, color flow and Doppler transthoracic echocardiogram is performed. 2. There is moderate concentric increased left ventricular wall thickness. 3. Left ventricular systolic function is normal, estimated at 65-70%. 4. The left ventricular diastolic function is grade I diastolic dysfunction. 5. Right ventricular chamber dimension is mildly enlarged. 6. Right atrial chamber dimension is moderately enlarged. 7. PA pressures are at least moderately elevated. 8. Compared to examination done in January of this year there is no significant change. Left Ventricle Left ventricular chamber dimension is normal. Left ventricular systolic function is normal, estimated at 65-70%. There is moderate concentric increased left ventricular wall thickness. The left ventricular diastolic function is grade I diastolic dysfunction. Right Ventricle Right ventricular chamber dimension is mildly enlarged. Left Atria Left atrial chamber dimension is mildly enlarged. Right Atria Right atrial chamber dimension is moderately enlarged. Aortic Valve The aortic valve is normal. Pulmonic Valve The pulmonic valve is not well visualized. Mitral Valve The mitral valve has normal leaflets. The mitral valve annulus is mildly calcified. Tricuspid Valve The tricuspid valve leaflets are normal. There is mild tricuspid valve regurgitation. Moderate pulmonary hypertension, estimated pulmonary arterial systolic pressure is Empty. Pericardium/Pleural The pericardium appears normal. Aorta The aortic root size at the sinus of Valsalva is normal. Left Ventricular Outflow Tract Name Value Normal LVOT 2D LVOT Diameter 2.0 cm LVOT Doppler LVOT Peak Gradient 7 mmHg LVOT Mean Gradient 4 mmHg LVOT VTI 28 cm LVOT VTI/AV VTI Ratio 0.6 LVOT Stroke Volume 85 ml LVOT CO 5.9 l/min LVOT CI 2.2 l/min/m2 Pulmonic Valve Name Value Normal PV Doppler PV Peak Gradient 6 mmHg Mitral Valve Name Value
[2021-07-17] MEDS: ALBUTEROL SULFATE (*SP) AEROSOL 1 PUFF 2 PUFF INHALATION ×4 (07:59→20:14)
[2021-07-17] MEDS: UMECLIDINIUM BROMIDE 62.5 MCG ELLIPTA 1 PUFF INHALATION (07:59)
[2021-07-17 08:46] LABS: Glucose Point of Care 109 mg/dl (65-105)
[2021-07-17] MEDS: PANTOPRAZOLE 40 MG TABLET PO (09:35)
[2021-07-17] MEDS: ATORVASTATIN 40 MG TABLET PO (09:35)
[2021-07-17] MEDS: EZETIMIBE 10 MG TABLET PO (09:35)
[2021-07-17] MEDS: amLODIPine BESYLATE 5 MG TABLET 10 MG PO (09:36)
[2021-07-17] MEDS: POLYSACCHARIDE IRON COMPLEX 150 MG CAPSULE PO ×2 (09:36→17:35)
[2021-07-17] MEDS: GABAPENTIN 100 MG CAPSULE PO ×3 (09:36→17:35)
[2021-07-17] MEDS: FUROSEMIDE INJ 40 MG/4 ML VIAL IV PUSH ×2 (09:36→17:35)
[2021-07-17 11:33] LABS: Glucose Point of Care 129 mg/dl (65-105)
--- NOTE | 2021-07-17 12:31 | WPDGIPROGNO ---
Progress Note: A&P Assessment and Plan (1) Erosive gastritis: Code(s): K29.60 - Other gastritis without bleeding Status: Acute Assessment and Plan: no signs of bleeding, EGD once again with erosive gastritis and only small ulcers she already had colonoscopy last year continue with ppi will order SB capsule endoscopy as outpatient to assess rest of small bowel hematology on board continue with iron supplement [place], call if questions (2) Acute on chronic blood loss anemia: Code(s): D62 - Acute posthemorrhagic anemia Status: Acute Assessment and Plan: hb low but stable (3) Acute on chronic respiratory failure with hypoxemia: Code(s): J96.21 - Acute and chronic respiratory failure with hypoxia Status: Resolved Assessment and Plan: improved with treatment, she is on oxygen at home (4) Congestive heart failure: Code(s): I50.9 - Heart failure, unspecified Status: Acute Subjective Date/time seen: 07/17/21 12:31 Interval history: she is doing better, sitting up in chair and comfortable. Review of Systems Review of Systems: All systems reviewed & are unremarkable except as noted in HPI and below Exam Const: General: comfortable and no acute distress Other: using oxygen HENMT: General nose exam: Normal nares present Eyes: General: appearance normal, both eyes and all related structures Neck: Neck: no JVD Resp: Auscultation: clear to auscultation bilaterally Cardio: Rate: regular rate Rhythm: regular rhythm GI: Inspection: non-distended GI Palp: Yes Soft to palpation and No Guarding due to palpation present (GI) Auscultation: normal bowel sounds Skin: General skin exam: no rashes or lesions noted Neuro: Speech: normal speech Motor exam (neuro): Normal motor muscle tone present throughout Extrem: General: normal to inspection Psych: Mental Status: mental status grossly normal Objective Data Vital Signs Vital Signs: Vital Signs - 24 hr 07/16/21 13:24 07/16/21 14:00 07/16/21 15:31 Temperature 97.8 F 97.7 F Pulse Rate 77 71 73 Respiratory Rate 20 16 20 Blood Pressure 125/70 106/62 92/54 L Pulse Oximetry 96 90 93 07/16/21 15:41 07/16/21 15:51 07/16/21 16:00 Temperature Pulse Rate 72 69 79 Respiratory Rate 20 22 H Blood Pressure 106/62 114/70 Pulse Oximetry 89 L 90 07/16/21 17:30 07/16/21 18:30 07/16/21 20:00 Temperature Pulse Rate 83 Respiratory Rate Blood Pressure Pulse Oximetry 100 97 07/16/21 21:28 07/16/21 22:00 07/17/21 05:54 Temperature 98.1 F 97.9 F Pulse Rate 73 69 Respiratory Rate 20 20 Blood Pressure 108/50 L 104/47 L Pulse Oximetry 94 96 93 07/17/21 07:58 07/17/21 08:01 07/17/21 08:34 Temperature Pulse Rate Respiratory Rate Blood Pressure Pulse Oximetry 93 95 95 07/17/21 09:01 Temperature Pulse Rate Respiratory Rate Blood Pressure Pulse Oximetry 91 Intake/Output Intake/Output: Intake & Output 07/14/21 07/15/21 07/16/21 07/17/21 23:59 23:59 23:59 23:59 Intake Total 700 1650 2115 965 Output Total 3100 3900 2700 Balance 080 -6327 -8023 -0250 Meds/Results Medications: Active Medications Generic Name Dose Route Start Last Admin Trade Name Freq PRN Reason Stop Dose Admin Albuterol 2 puff 07/15/21 08:00 07/17/21 12:24 Albuterol Sulfate (*Sp) Aerosol 1 Puff INHALATION 2 puff QIDRT EMIR Administration Amlodipine Besylate 10 mg 07/15/21 09:00 07/17/21 09:36 Amlodipine Besylate 5 Mg Tablet PO 10 mg DAILY EMIR Administration Aspirin 81 mg 07/15/21 09:00 07/16/21 08:48 Aspirin 81 Mg Enteric Tablet PO 81 mg DAILY EMIR Administration Atorvastatin Calcium 40 mg 07/15/21 09:00 07/17/21 09:35 Atorvastatin 40 Mg Tablet PO 40 mg DAILY EMIR Administration Budesonide/Formoterol Fumarate 2 puff 07/15/21 08:00 07/17/21 07:59 Budesonide/Form 160-4.5 Mcg (*Sp) INHALATION 2 puff
--- NOTE | 2021-07-17 16:41 | PM.IMPN ---
Progress Note: A&P Assessment and Plan (1) Acute on chronic blood loss anemia: Code(s): D62 - Acute posthemorrhagic anemia Status: Acute (2) Acute and chronic respiratory failure: Code(s): J96.20 - Acute and chronic respiratory failure, unspecified whether with hypoxia or hypercapnia Status: Acute Assessment and Plan: 15 L on non rebreather in emergecy room Home oxygen at 4-5 liters at home. Improvement of respiratory status with lower oxygen requirements. Oxygen flow rates coming down from 10 to 8 liters per minute. Patient has a history of chronic COPD and has been previously dependent on home oxygen. Continue supplemental oxygen, wean to maintain saturation >90% Nebulizer treatments Continue home Incruse ellipta 1 puff daily Trend SPO2 Covid negative (3) CHF exacerbation: Qualifiers: Heart failure type: diastolic Qualified Code(s): I50.33 - Acute on chronic diastolic (congestive) heart failure Code(s): I50.9 - Heart failure, unspecified Status: Resolved Assessment and Plan: Chest x-ray suggests possible pulmonary edema. There is likely an element of acute on chronic exacerbation. IV lasix 40mg IV BID, (Home dose 20mg PO BID) ECHO from 07/17/2021 EF of 65-70, repeat chest xray Cardiomegaly with developing interstitial edema from 07/16/21 Strict I&O and daily weights (4) COPD (chronic obstructive pulmonary disease): Qualifiers: COPD type: unspecified COPD Qualified Code(s): J44.9 - Chronic obstructive pulmonary disease, unspecified Code(s): J44.9 - Chronic obstructive pulmonary disease, unspecified Status: Chronic Assessment and Plan: Chronic oxygen use 4LNC Continue home medications Incruse ellipta 1 puff daily, symbicort 2 puff BID, albuterol nebs Supplemental oxygen, wean to maintain saturation >90% Consider multiple small meals Smoking cessation education (5) HTN (hypertension), malignant: Code(s): I10 - Essential (primary) hypertension Status: Chronic Assessment and Plan: Current blood pressure 110/60, which is within acceptable range. Continue home amlodipine 10mg PO daily Trend BP Adjust medications as needed (6) Diabetes mellitus: Qualifiers: Diabetes mellitus type: type 2 Diabetes mellitus chcf insulin use: without chcf use Diabetes mellitus complication status: with hyperglycemia Qualified Code(s): E11.65 - Type 2 diabetes mellitus with hyperglycemia Code(s): E11.9 - Type 2 diabetes mellitus without complications Status: Chronic Assessment and Plan: glucose on labs 123 Accu-Cheks AC and HS in the 1009-196 range. A1c 6.0 hypoglycemia protocol Hold metformin for now Insulin sliding scale Trend glucose Adjust medications as needed (7) Erosive gastritis: Code(s): K29.60 - Other gastritis without bleeding Status: Acute Assessment and Plan: Hb remains stable. EGD reveals erosive gastritis and small ulcers. Plan for capsule endoscopy per GI. Continue oral iron supplementation and PPI therapy. Avoid NSAIDs. (8) Obstructive sleep apnea: Code(s): G47.33 - Obstructive sleep apnea (adult) (pediatric) Status: Acute Additional Plan Continue home CPAP per home parameters. Time Spent With Patient Time with patient: 15 - 25 minutes Subjective Date/time seen: 07/17/21 16:41 Patient is a 61 year old lady admitted with increased shortness of breath, fluid overload and anemia. She was managed for acute blood loss anemia and acute CHF exacerbation. Interval history: she is doing better, sitting up in chair and comfortable. Exam Const: General: cooperative, healthy appearing, comfortable, no acute distress, well developed, alert, awake and Physically active Nutritional Appearance: obese and overweight Orientation/consciousness: oriented to person, oriented to place, oriented to time and patient oriented x3 Limitations: physical li
[2021-07-17 16:56] LABS: Glucose Point of Care 153 mg/dl (65-105)
[2021-07-17 17:28] LABS: Basophils Percent Auto 0.2 % (0.2-1.2); Eosinophils Absolute Auto 0.1 K/mm3 (0-0.3); Eosinophils Percent Auto 1.2 % (0-4.4); Hematocrit 29.6 % (37.0-47.0); Hemoglobin 8.6 g/dL (12.0-15.0); Immature Granulocyte Absolute 0.02 K/mm3 (0.00-0.031); Immature Granulocyte Percent A 0.2 % (0-0.5); Immature Platelet Fraction Pct 7.4 % (0.9-11.2); Lymphocytes Absolute Auto 1.03 K/mm3 (0.9-3.2); Lymphocytes Percent Auto 11.9 % (18.3-44.2); Mean Corpuscular HGB Conc 29.1 g/dl (32-36); Mean Corpuscular Hemoglobin 22.3 pg (26-34); Mean Corpuscular Volume 76.7 fl (80-100); Monocytes Absolute Auto 0.5 K/mm3 (0.1-0.6); Monocytes Percent Auto 5.7 % (2.6-8.5); Neutrophils Percent Auto 80.8 % (45.5-73.1); Nucleated Red Blood Cells Perc 0.5 % (0.0-0.2); Platelet Count Result 252 k/mm3 (150-375); Red Blood Count 3.86 M/mm3 (4.2-5.4); Red Cell Distribution Width 21.4 % (11.5-14.5); White Blood Count 8.7 K/mm3 (4.5-10.0)
[2021-07-17 17:42] LABS: Anion Gap 11 mmol/L (8-16); Blood Urea Nitrogen 15 mg/dL (7-17); Calcium 8.7 mg/dL (8.4-10.2); Carbon Dioxide 31 mmol/L (22-30); Chloride 98 mmol/L (98-107); Estimated CRCL calculation 83 ml/min; Estimated Glomerular Filt Rate > 60; Glucose 136 mg/dL (65-110); Potassium 3.7 mmol/L (3.4-5.0); Sodium 140 mmol/L (137-145)
[2021-07-17 18:00] LABS: Anisocytosis 3+ (NORMAL); Hypochromasia 1+ (NORMAL); Platelet Estimate Adequate (Adequate)
[2021-07-17 21:08] LABS: Glucose Point of Care 139 mg/dl (65-105)
[2021-07-18] VITALS (8 sets, daily range): BP systolic 93–114; BP diastolic 45–75; PULSE 57–83; RESP 18–20; TEMP 36.3–36.7; O2SAT 93–100
[2021-07-18] MEDS: polyethylene glycoL 3350 17 GM POWD.PACK PO (05:12)
[2021-07-18 06:25] LABS: Hematocrit 28.9 % (37.0-47.0); Hemoglobin 8.3 g/dL (12.0-15.0); Mean Corpuscular HGB Conc 28.7 g/dl (32-36); Mean Corpuscular Hemoglobin 21.8 pg (26-34); Mean Corpuscular Volume 76.1 fl (80-100); Mean Platelet Volume 10.1 fl (7.4-10.4); Platelet Count Result 254 k/mm3 (150-375); Red Cell Distribution Width 21.9 % (11.5-14.5); White Blood Count 9.6 K/mm3 (4.5-10.0)
[2021-07-18 06:36] LABS: Anion Gap 6 mmol/L (8-16); Blood Urea Nitrogen 17 mg/dL (7-17); Calcium 9.3 mg/dL (8.4-10.2); Carbon Dioxide 35 mmol/L (22-30); Chloride 99 mmol/L (98-107); Estimated CRCL calculation 68 ml/min; Estimated Glomerular Filt Rate > 60; Glucose 118 mg/dL (65-110); Potassium 3.4 mmol/L (3.4-5.0); Sodium 140 mmol/L (137-145)
[2021-07-18] MEDS: ALBUTEROL SULFATE (*SP) AEROSOL 1 PUFF 2 PUFF INHALATION ×4 (07:43→19:47)
[2021-07-18] MEDS: UMECLIDINIUM BROMIDE 62.5 MCG ELLIPTA 1 PUFF INHALATION (07:44)
[2021-07-18 08:00] LABS: Glucose Point of Care 106 mg/dl (65-105)
[2021-07-18] MEDS: GABAPENTIN 100 MG CAPSULE PO ×3 (08:34→17:27)
[2021-07-18] MEDS: POLYSACCHARIDE IRON COMPLEX 150 MG CAPSULE PO ×2 (08:34→17:27)
[2021-07-18] MEDS: ASPIRIN 81 MG ENTERIC TABLET PO (08:34)
[2021-07-18] MEDS: ATORVASTATIN 40 MG TABLET PO (08:34)
[2021-07-18] MEDS: PANTOPRAZOLE 40 MG TABLET PO (08:35)
[2021-07-18] MEDS: EZETIMIBE 10 MG TABLET PO (08:35)
[2021-07-18] MEDS: amLODIPine BESYLATE 5 MG TABLET 10 MG PO (08:35)
[2021-07-18] MEDS: FUROSEMIDE INJ 40 MG/4 ML VIAL IV PUSH ×2 (08:35→17:27)
[2021-07-18 12:07] LABS: Glucose Point of Care 106 mg/dl (65-105)
--- NOTE | 2021-07-18 12:07 | PM.IMPN ---
Progress Note: A&P Assessment and Plan (1) Acute on chronic blood loss anemia: Code(s): D62 - Acute posthemorrhagic anemia Status: Acute Assessment and Plan: There is no sign of bleeding, EGD once again with erosive gastritis and only small ulcers she already had colonoscopy last year continue with ppi Plan for SB capsule endoscopy as outpatient to assess rest of small bowel continue with iron supplement (2) Acute and chronic respiratory failure: Code(s): J96.20 - Acute and chronic respiratory failure, unspecified whether with hypoxia or hypercapnia Status: Acute Assessment and Plan: 15 L on non rebreather in emergency room Home oxygen at 4-5 liters at home. Improvement of respiratory status with lower oxygen requirements. Oxygen flow rates back up to 10 liters per minute. Patient has a history of chronic COPD and has been previously dependent on home oxygen. Continue supplemental oxygen, wean to maintain saturation >90% Nebulizer treatments Continue home Incruse ellipta 1 puff daily Trend SPO2 Covid negative (3) CHF exacerbation: Qualifiers: Heart failure type: diastolic Qualified Code(s): I50.33 - Acute on chronic diastolic (congestive) heart failure Code(s): I50.9 - Heart failure, unspecified Status: Resolved Assessment and Plan: Chest x-ray suggests possible pulmonary edema. Crackles heard on exam. Creatinine mild increase today. Fluid restriction 1.5 liters per day Daily weights There is likely an element of acute on chronic exacerbation. IV lasix 40mg IV BID, (Home dose 20mg PO BID) ECHO from 07/17/2021 EF of 65-70, repeat chest xray Cardiomegaly with developing interstitial edema from 07/16/21 Strict I&O and daily weights (4) COPD (chronic obstructive pulmonary disease): Qualifiers: COPD type: unspecified COPD Qualified Code(s): J44.9 - Chronic obstructive pulmonary disease, unspecified Code(s): J44.9 - Chronic obstructive pulmonary disease, unspecified Status: Chronic Assessment and Plan: Chronic oxygen use 4LNC Continue home medications Incruse ellipta 1 puff daily, symbicort 2 puff BID, albuterol nebs Supplemental oxygen, wean to maintain saturation >90% Consider multiple small meals Smoking cessation education (5) HTN (hypertension), malignant: Code(s): I10 - Essential (primary) hypertension Status: Chronic Assessment and Plan: Current blood pressure 109/45, which is within acceptable range. Continue home amlodipine 10mg PO daily Trend BP Adjust medications as needed (6) Diabetes mellitus: Qualifiers: Diabetes mellitus complication status: with hyperglycemia Diabetes mellitus shake maker insulin use: without shelter use Diabetes mellitus type: type 2 Qualified Code(s): E11.65 - Type 2 diabetes mellitus with hyperglycemia Code(s): E11.9 - Type 2 diabetes mellitus without complications Status: Chronic Assessment and Plan: glucose on labs 123 Accu-Cheks AC and HS in the 1009-196 range. A1c 6.0 hypoglycemia protocol Hold metformin for now Insulin sliding scale Trend glucose Adjust medications as needed (7) Erosive gastritis: Code(s): K29.60 - Other gastritis without bleeding Status: Acute Assessment and Plan: Hb remains stable. EGD reveals erosive gastritis and small ulcers. Plan for capsule endoscopy per GI. Continue oral iron supplementation and PPI therapy. Avoid NSAIDs. (8) Obstructive sleep apnea: Code(s): G47.33 - Obstructive sleep apnea (adult) (pediatric) Status: Acute Additional Plan Continue home CPAP per home parameters. Subjective Date/time seen: 07/18/21 12:07 Interval history: Patient is doing better, sitting up in chair and comfortable. She did not offer any complaints. Review of Systems Constitutional: Constitutional: Reports no additional constitutional complaints Eyes: Eyes: Reports no additi
[2021-07-18] MEDS: POTASSIUM CHLORIDE 20 MEQ PACKET (FOR LIQUID) PO (12:15)
[2021-07-18 17:07] LABS: Glucose Point of Care 103 mg/dl (65-105)
[2021-07-18 20:39] LABS: IFOB Positive Control Positive; Immunochemical Fecal Occult Bl Negative (N)
[2021-07-19 05:30] LABS: Glucose Point of Care 126 mg/dl (65-105)
[2021-07-19 06:00] VITALS: BP 103/50; PULSE 72; RESP 20; TEMP 36.4; O2SAT 90
[2021-07-19 06:25] LABS: Hematocrit 30.3 % (37.0-47.0); Hemoglobin 8.7 g/dL (12.0-15.0); Immature Platelet Fraction Pct 7.5 % (0.9-11.2); Mean Corpuscular HGB Conc 28.7 g/dl (32-36); Mean Corpuscular Hemoglobin 22.1 pg (26-34); Mean Corpuscular Volume 77.1 fl (80-100); Mean Platelet Volume 11.3 fl (7.4-10.4); Platelet Count Result 251 k/mm3 (150-375); Red Blood Count 3.93 M/mm3 (4.2-5.4); Red Cell Distribution Width 22.1 % (11.5-14.5)
[2021-07-19 06:46] LABS: Anion Gap 4 mmol/L (8-16); Blood Urea Nitrogen 16 mg/dL (7-17); Calcium 9.3 mg/dL (8.4-10.2); Carbon Dioxide 39 mmol/L (22-30); Chloride 97 mmol/L (98-107); Estimated CRCL calculation 75 ml/min; Estimated Glomerular Filt Rate > 60; Glucose 103 mg/dL (65-110); Potassium 3.3 mmol/L (3.4-5.0); Sodium 140 mmol/L (137-145)
[2021-07-19] MEDS: ALBUTEROL SULFATE (*SP) AEROSOL 1 PUFF 2 PUFF INHALATION ×3 (08:01→19:38)
[2021-07-19] MEDS: UMECLIDINIUM BROMIDE 62.5 MCG ELLIPTA 1 PUFF INHALATION (08:02)
[2021-07-19 08:03] VITALS: O2SAT 90
[2021-07-19 08:08] LABS: Glucose Point of Care 103 mg/dl (65-105)
[2021-07-19] MEDS: POLYSACCHARIDE IRON COMPLEX 150 MG CAPSULE PO ×2 (08:37→16:41)
[2021-07-19 08:38] LABS: Magnesium 1.9 mg/dL (1.6-2.3)
[2021-07-19] MEDS: GABAPENTIN 100 MG CAPSULE PO ×3 (08:38→16:41)
[2021-07-19] MEDS: ASPIRIN 81 MG ENTERIC TABLET PO (08:38)
[2021-07-19] MEDS: amLODIPine BESYLATE 5 MG TABLET 10 MG PO (08:38)
[2021-07-19] MEDS: ATORVASTATIN 40 MG TABLET PO (08:38)
[2021-07-19] MEDS: FUROSEMIDE INJ 40 MG/4 ML VIAL IV PUSH ×2 (08:38→16:41)
[2021-07-19] MEDS: EZETIMIBE 10 MG TABLET PO (08:38)
[2021-07-19] MEDS: PANTOPRAZOLE 40 MG TABLET PO (08:38)
[2021-07-19] MEDS: POTASSIUM CHLORIDE 20 MEQ PACKET (FOR LIQUID) 40 MEQ PO ×2 (08:47→12:11)
[2021-07-19 12:16] LABS: Glucose Point of Care 121 mg/dl (65-105)
[2021-07-19 14:00] VITALS: BP 107/59; PULSE 86; RESP 20; TEMP 36.4; O2SAT 95
--- NOTE | 2021-07-19 14:33 | PM.IMPN ---
Progress Note: A&P Assessment and Plan (1) Acute on chronic blood loss anemia: Code(s): D62 - Acute posthemorrhagic anemia Status: Acute Assessment and Plan: There is no sign of active bleeding on EGD which shows erosive gastritis and only small ulcers. Continue with ppi. Plan for SB capsule endoscopy as outpatient to assess rest of small bowel continue with iron supplements. (2) Acute and chronic respiratory failure: Code(s): J96.20 - Acute and chronic respiratory failure, unspecified whether with hypoxia or hypercapnia Status: Acute Assessment and Plan: 15 L on non rebreather in emergency room Home oxygen at 4-5 liters at home. Improvement of respiratory status with lower oxygen requirements. Oxygen flow rates at 10 liters per minute. Patient has a history of chronic COPD and has been previously dependent on home oxygen. Continue supplemental oxygen, wean to maintain saturation >90%. Nebulizer treatments. Continue home Incruse ellipta 1 puff daily. Trend SPO2; currently saturated 90% on 10 liters. Covid negative (3) CHF exacerbation: Qualifiers: Heart failure type: diastolic Qualified Code(s): I50.33 - Acute on chronic diastolic (congestive) heart failure Code(s): I50.9 - Heart failure, unspecified Status: Resolved Assessment and Plan: Chest x-ray suggests possible pulmonary edema. Crackles heard on exam. Creatinine stable at 1, Fluid restriction 1.5 liters per day Daily weights There is likely an element of acute on chronic exacerbation. IV lasix 40mg IV BID, (Home dose 20mg PO BID) ECHO from 07/17/2021 EF of 65-70, repeat chest xray Cardiomegaly with developing interstitial edema from 07/16/21 Strict I&O and daily weights (4) COPD (chronic obstructive pulmonary disease): Qualifiers: COPD type: unspecified COPD Qualified Code(s): J44.9 - Chronic obstructive pulmonary disease, unspecified Code(s): J44.9 - Chronic obstructive pulmonary disease, unspecified Status: Chronic Assessment and Plan: Chronic oxygen use 4LNC Continue home medications Incruse ellipta 1 puff daily, symbicort 2 puff BID, albuterol nebs Supplemental oxygen, wean to maintain saturation >90% Consider multiple small meals Smoking cessation education (5) HTN (hypertension), malignant: Code(s): I10 - Essential (primary) hypertension Status: Chronic Assessment and Plan: Current blood pressure 103/50, which is within acceptable range. Decrease home amlodipine to 5mg PO daily Trend BP Adjust medications as needed (6) Diabetes mellitus: Qualifiers: Diabetes mellitus type: type 2 Diabetes mellitus fdc insulin use: without director corporate communications use Diabetes mellitus complication status: with hyperglycemia Qualified Code(s): E11.65 - Type 2 diabetes mellitus with hyperglycemia Code(s): E11.9 - Type 2 diabetes mellitus without complications Status: Chronic Assessment and Plan: glucose on labs 103 Accu-Cheks AC and HS in the 103-126 range. A1c 6.0 hypoglycemia protocol Hold metformin for now Insulin sliding scale Trend glucose Adjust medications as needed (7) Erosive gastritis: Code(s): K29.60 - Other gastritis without bleeding Status: Acute Assessment and Plan: Hb remains stable. EGD reveals erosive gastritis and small ulcers. Plan for capsule endoscopy per GI. Continue oral iron supplementation and PPI therapy. Avoid NSAIDs. (8) Obstructive sleep apnea: Code(s): G47.33 - Obstructive sleep apnea (adult) (pediatric) Status: Acute Additional Plan Continue home CPAP per home parameters. Subjective Date/time seen: 07/19/21 14:33 Interval history: Patient is doing better, sitting up in chair and comfortable. She did not offer any complaints. Review of Systems Review of Systems: All systems reviewed & are unremarkable except as noted in HPI and below Constitutional: Constitutio
[2021-07-19 16:49] LABS: Glucose Point of Care 114 mg/dl (65-105)
[2021-07-19 19:51] LABS: Magnesium 1.9 mg/dL (1.6-2.3)
[2021-07-19 20:00] VITALS: PULSE 72; RESP 18; O2SAT 92
[2021-07-19 21:11] LABS: Glucose Point of Care 116 mg/dl (65-105)
[2021-07-19 21:46] VITALS: BP 105/55; PULSE 72; RESP 18; TEMP 36.5; O2SAT 92
[2021-07-20] VITALS (8 sets, daily range): BP systolic 102–125; BP diastolic 48–88; PULSE 65–80; RESP 14–20; TEMP 36.2–36.7; O2SAT 90–100
[2021-07-20 06:43] LABS: Hematocrit 29.6 % (37.0-47.0); Hemoglobin 8.8 g/dL (12.0-15.0); Immature Platelet Fraction Pct 6.3 % (0.9-11.2); Mean Corpuscular HGB Conc 29.7 g/dl (32-36); Mean Corpuscular Hemoglobin 22.9 pg (26-34); Mean Corpuscular Volume 76.9 fl (80-100); Mean Platelet Volume 10.9 fl (7.4-10.4); Platelet Count Result 244 k/mm3 (150-375); Red Blood Count 3.85 M/mm3 (4.2-5.4); Red Cell Distribution Width 23.7 % (11.5-14.5); White Blood Count 8.4 K/mm3 (4.5-10.0)
[2021-07-20 06:56] LABS: Anion Gap 5 mmol/L (8-16); Blood Urea Nitrogen 16 mg/dL (7-17); Calcium 9.2 mg/dL (8.4-10.2); Carbon Dioxide 38 mmol/L (22-30); Chloride 97 mmol/L (98-107); Estimated CRCL calculation 75 ml/min; Estimated Glomerular Filt Rate > 60; Glucose 119 mg/dL (65-110); Potassium 3.8 mmol/L (3.4-5.0); Sodium 140 mmol/L (137-145)
[2021-07-20 08:11] LABS: Glucose Point of Care 100 mg/dl (65-105)
[2021-07-20] MEDS: UMECLIDINIUM BROMIDE 62.5 MCG ELLIPTA 1 PUFF INHALATION (08:18)
[2021-07-20] MEDS: ALBUTEROL SULFATE (*SP) AEROSOL 1 PUFF 2 PUFF INHALATION ×4 (08:18→19:26)
[2021-07-20] MEDS: ASPIRIN 81 MG ENTERIC TABLET PO (09:55)
[2021-07-20] MEDS: GABAPENTIN 100 MG CAPSULE PO ×3 (09:55→17:00)
[2021-07-20] MEDS: EZETIMIBE 10 MG TABLET PO (09:55)
[2021-07-20] MEDS: PANTOPRAZOLE 40 MG TABLET PO (09:55)
[2021-07-20] MEDS: ATORVASTATIN 40 MG TABLET PO (09:56)
[2021-07-20] MEDS: POLYSACCHARIDE IRON COMPLEX 150 MG CAPSULE PO ×2 (09:56→17:00)
[2021-07-20] MEDS: amLODIPine BESYLATE 5 MG TABLET PO (09:56)
[2021-07-20] MEDS: FUROSEMIDE INJ 40 MG/4 ML VIAL IV PUSH ×2 (09:56→17:00)
[2021-07-20 11:49] LABS: Glucose Point of Care 124 mg/dl (65-105)
--- NOTE | 2021-07-20 15:41 | PC.NURSE ---
On 07/20/21, the student, [ Quiat Peters], provided care and completed [facility] documentation on this patient. I have reviewed the student's documentation and agree with the findings.
[2021-07-20 17:06] LABS: Glucose Point of Care 110 mg/dl (65-105)
--- NOTE | 2021-07-20 17:57 | PM.IMPN ---
Progress Note: A&P Assessment and Plan (1) Acute on chronic blood loss anemia: Code(s): D62 - Acute posthemorrhagic anemia Status: Acute Assessment and Plan: There is no sign of active bleeding on EGD which shows erosive gastritis and only small ulcers. Continue with ppi. Plan for SB capsule endoscopy as outpatient to assess rest of small bowel; continue with iron supplements. (2) Acute and chronic respiratory failure: Code(s): J96.20 - Acute and chronic respiratory failure, unspecified whether with hypoxia or hypercapnia Status: Acute Assessment and Plan: 15 L on non rebreather in emergency room Home oxygen at 4-5 liters at home. Improvement of respiratory status with lower oxygen requirements down to 8 liters today. Patient has a history of chronic COPD and has been previously dependent on home oxygen. Continue supplemental oxygen, wean to maintain saturation >90%. Nebulizer treatments. Continue home Incruse ellipta 1 puff daily. Trend SPO2; currently saturated 90% on 8 liters. Covid negative (3) CHF exacerbation: Qualifiers: Heart failure type: diastolic Qualified Code(s): I50.33 - Acute on chronic diastolic (congestive) heart failure Code(s): I50.9 - Heart failure, unspecified Status: Resolved Assessment and Plan: Chest x-ray suggests possible pulmonary edema. Crackles heard on exam. Creatinine stable at 1, Fluid restriction 1.5 liters per day Daily weights There is likely an element of acute on chronic exacerbation. IV lasix 40mg IV BID, (Home dose 20mg PO BID) ECHO from 07/17/2021 EF of 65-70, repeat chest xray Cardiomegaly with developing interstitial edema from 07/16/21 Strict I&O and daily weights (4) COPD (chronic obstructive pulmonary disease): Qualifiers: COPD type: unspecified COPD Qualified Code(s): J44.9 - Chronic obstructive pulmonary disease, unspecified Code(s): J44.9 - Chronic obstructive pulmonary disease, unspecified Status: Chronic Assessment and Plan: Chronic oxygen use 4LNC Continue home medications Incruse ellipta 1 puff daily, symbicort 2 puff BID, albuterol nebs Supplemental oxygen, wean to maintain saturation >90% Consider multiple small meals Smoking cessation education (5) HTN (hypertension), malignant: Code(s): I10 - Essential (primary) hypertension Status: Chronic Assessment and Plan: Current blood pressure 105/88, which is within acceptable range. Decrease home amlodipine to 5mg PO daily Trend BP Adjust medications as needed (6) Diabetes mellitus: Qualifiers: Diabetes mellitus type: type 2 Diabetes mellitus prison insulin use: without prison use Diabetes mellitus complication status: with hyperglycemia Qualified Code(s): E11.65 - Type 2 diabetes mellitus with hyperglycemia Code(s): E11.9 - Type 2 diabetes mellitus without complications Status: Chronic Assessment and Plan: glucose on labs 119. Accu-Cheks AC and HS in the 100-124 range. A1c 6.0 hypoglycemia protocol Hold metformin for now Insulin sliding scale Trend glucose Adjust medications as needed (7) Erosive gastritis: Code(s): K29.60 - Other gastritis without bleeding Status: Acute Assessment and Plan: Hb remains stable. EGD reveals erosive gastritis and small ulcers. Plan for capsule endoscopy per GI. Continue oral iron supplementation and PPI therapy. Avoid NSAIDs. (8) Obstructive sleep apnea: Code(s): G47.33 - Obstructive sleep apnea (adult) (pediatric) Status: Acute Additional Plan Continue home CPAP per home parameters. Subjective Date/time seen: 07/20/21 13:00 Interval history: Patient is doing better, sitting up in chair and comfortable. She did not offer any complaints. Review of Systems Review of Systems: All systems reviewed & are unremarkable except as noted in HPI and below Constitutional: Constitutional: Reports as per
[2021-07-20 23:20] LABS: Glucose Point of Care 170 mg/dl (65-105)
[2021-07-21] VITALS (11 sets, daily range): BP systolic 88–108; BP diastolic 42–58; PULSE 68–86; RESP 18; TEMP 35.8–36.8; O2SAT 85–99
[2021-07-21 07:06] LABS: Hematocrit 30.7 % (37.0-47.0); Hemoglobin 8.7 g/dL (12.0-15.0); Immature Platelet Fraction Pct 6.5 % (0.9-11.2); Mean Corpuscular HGB Conc 28.3 g/dl (32-36); Mean Corpuscular Hemoglobin 22.7 pg (26-34); Mean Corpuscular Volume 79.9 fl (80-100); Platelet Count Result 249 k/mm3 (150-375); Red Blood Count 3.84 M/mm3 (4.2-5.4); Red Cell Distribution Width 23.4 % (11.5-14.5); White Blood Count 9.5 K/mm3 (4.5-10.0)
[2021-07-21 07:13] LABS: Anion Gap 5 mmol/L (8-16); Blood Urea Nitrogen 20 mg/dL (7-17); Calcium 9.5 mg/dL (8.4-10.2); Carbon Dioxide 39 mmol/L (22-30); Chloride 95 mmol/L (98-107); Estimated CRCL calculation 83 ml/min; Estimated Glomerular Filt Rate > 60; Glucose 110 mg/dL (65-110); Potassium 4.2 mmol/L (3.4-5.0); Sodium 139 mmol/L (137-145)
[2021-07-21 08:25] LABS: Glucose Point of Care 107 mg/dl (65-105)
[2021-07-21] MEDS: UMECLIDINIUM BROMIDE 62.5 MCG ELLIPTA 1 PUFF INHALATION (08:30)
[2021-07-21] MEDS: ALBUTEROL SULFATE (*SP) AEROSOL 1 PUFF 2 PUFF INHALATION ×4 (08:30→19:57)
[2021-07-21] MEDS: POLYSACCHARIDE IRON COMPLEX 150 MG CAPSULE PO ×2 (08:56→17:10)
[2021-07-21] MEDS: ASPIRIN 81 MG ENTERIC TABLET PO (08:59)
[2021-07-21] MEDS: ATORVASTATIN 40 MG TABLET PO (08:59)
[2021-07-21] MEDS: GABAPENTIN 100 MG CAPSULE PO ×3 (09:00→17:10)
[2021-07-21] MEDS: EZETIMIBE 10 MG TABLET PO (09:00)
[2021-07-21] MEDS: PANTOPRAZOLE 40 MG TABLET PO (09:00)
[2021-07-21] MEDS: FUROSEMIDE INJ 40 MG/4 ML VIAL IV PUSH ×2 (09:00→17:09)
--- NOTE | 2021-07-21 10:51 | PCNWS ---
Weekly nutritional screen. Patient is tolerating current diet with adequate intake of 100%. No weight loss reported. No nutritional needs at this time.
[2021-07-21 12:07] LABS: Glucose Point of Care 101 mg/dl (65-105)
--- NOTE | 2021-07-21 15:50 | PC.NURSE ---
On 07/21/21, the student, Rosaura Boyer, provided care and completed [facility] documentation on this patient. I have reviewed the student's documentation and agree with the findings.
--- NOTE | 2021-07-21 16:21 | PM.IMPN ---
Progress Note: A&P Assessment and Plan (1) Acute on chronic blood loss anemia: Code(s): D62 - Acute posthemorrhagic anemia Status: Acute Assessment and Plan: There is no sign of active bleeding on EGD which shows erosive gastritis and only small ulcers. Continue with ppi. Plan for SB capsule endoscopy as outpatient to assess rest of small bowel; continue with iron supplements. (2) Acute and chronic respiratory failure: Code(s): J96.20 - Acute and chronic respiratory failure, unspecified whether with hypoxia or hypercapnia Status: Acute Assessment and Plan: 15 L on non rebreather in emergency room Home oxygen at 4-5 liters at home. Initially with improvement of respiratory status with lower oxygen requirements down to 8 liters yesterday. Despite aggressive diuresis no further improvement and she is back to 10 liters today. She appears well clinically and has been tolerating daily PT and making steady progress. Patient has a history of chronic COPD and is dependent on home oxygen. Continue supplemental oxygen, wean to maintain saturation >90%. Nebulizer treatments. Continue home Incruse ellipta 1 puff daily. Trend SPO2; currently saturated 90% on 10 liters. Covid was negative (3) CHF exacerbation: Qualifiers: Heart failure type: diastolic Qualified Code(s): I50.33 - Acute on chronic diastolic (congestive) heart failure Code(s): I50.9 - Heart failure, unspecified Status: Resolved Assessment and Plan: Chest x-ray suggests possible pulmonary edema. Crackles heard on exam. Echocardiogram on 07/17 : Left ventricular systolic function is normal, estimated at 65-70%. Patient has had vigorous diuresis making upward of 3.5 liters of urine per day. Troughout this kdiney function has been monitored closely with creatinine stable at 0.9, Continue IV lasix 40mg IV BID, (Home dose 20mg PO BID) Fluid restriction 1.5 liters per day repeat chest Xray. Daily weights There is likely an element of acute on chronic exacerbation. repeat chest xray Cardiomegaly with developing interstitial edema on 07/14/2021. Strict I&O and daily weights (4) COPD (chronic obstructive pulmonary disease): Qualifiers: COPD type: unspecified COPD Qualified Code(s): J44.9 - Chronic obstructive pulmonary disease, unspecified Code(s): J44.9 - Chronic obstructive pulmonary disease, unspecified Status: Chronic Assessment and Plan: Chronic oxygen use 4LNC Continue home medications Incruse ellipta 1 puff daily, symbicort 2 puff BID, albuterol nebs Supplemental oxygen, wean to maintain saturation >90% Consider multiple small meals Smoking cessation education (5) HTN (hypertension), malignant: Code(s): I10 - Essential (primary) hypertension Status: Chronic Assessment and Plan: Current blood pressure 102/58, which is within acceptable range. Stopped home amlodipine. 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 Accu-Cheks AC and HS in the 100-124 range. A1c 6.0 hypoglycemia protocol Hold metformin for now Insulin sliding scale Trend glucose Adjust medications as needed (7) Erosive gastritis: Code(s): K29.60 - Other gastritis without bleeding Status: Acute Assessment and Plan: Hb remains stable. EGD reveals erosive gastritis and small ulcers. Plan for capsule endoscopy per GI. Continue oral iron supplementation and PPI therapy. Avoid NSAIDs. (8) Obstructive sleep apnea: Code(s): G47.33 - Obstructive sleep apnea (adult) (pediatric)
[2021-07-21 17:08] LABS: Glucose Point of Care 104 mg/dl (65-105)
[2021-07-22] VITALS (8 sets, daily range): BP systolic 100–105; BP diastolic 53–60; PULSE 63–87; RESP 14–18; TEMP 36.3–36.6; O2SAT 90–100
[2021-07-22 01:14] LABS: Glucose Point of Care 130 mg/dl (65-105)
[2021-07-22 07:04] LABS: Hematocrit 30.2 % (37.0-47.0); Hemoglobin 8.5 g/dL (12.0-15.0); Mean Corpuscular HGB Conc 28.1 g/dl (32-36); Mean Corpuscular Hemoglobin 22.6 pg (26-34); Mean Corpuscular Volume 80.3 fl (80-100); Mean Platelet Volume 10.7 fl (7.4-10.4); Platelet Count Result 214 k/mm3 (150-375); Red Blood Count 3.76 M/mm3 (4.2-5.4); Red Cell Distribution Width 23.4 % (11.5-14.5); White Blood Count 8.3 K/mm3 (4.5-10.0)
[2021-07-22 07:28] LABS: Anion Gap 4 mmol/L (8-16); Blood Urea Nitrogen 20 mg/dL (7-17); Calcium 9.3 mg/dL (8.4-10.2); Carbon Dioxide 38 mmol/L (22-30); Chloride 95 mmol/L (98-107); Estimated CRCL calculation 92 ml/min; Estimated Glomerular Filt Rate > 60; Glucose 119 mg/dL (65-110); Potassium 4.1 mmol/L (3.4-5.0); Sodium 137 mmol/L (137-145)
[2021-07-22] MEDS: ALBUTEROL SULFATE (*SP) AEROSOL 1 PUFF 2 PUFF INHALATION ×4 (08:03→20:42)
[2021-07-22 08:18] LABS: Glucose Point of Care 149 mg/dl (65-105)
[2021-07-22 08:52] LABS: NT Pro B Type Natriuretic Pept 1750 pg/mL (5-100)
--- NOTE | 2021-07-22 08:55 | PM.CNPUL ---
Assessment and Plan Assessment and plan (1) Obstructive sleep apnea: Code(s): G47.33 - Obstructive sleep apnea (adult) (pediatric) Status: Acute Assessment and Plan: Patient is on home BiPAP at 12/7 with 6 L bleed in. I will initiate this therapy tonight. I have contacted charge coordinator to get a download from her [employer] company which is [employer]. (2) Chronic hypoxemic respiratory failure: Code(s): J96.11 - Chronic respiratory failure with hypoxia Status: Acute Assessment and Plan: Patient carries a diagnosis of COPD but has a restrictive PFT pattern on 09/15/2020. At home she is on 4 L at rest, 5 L with activity and 6 L bleed in at night with her BiPAP 10/05. She is morbidly obese. There is no evidence of hypercarbic respiratory failure on her current blood gas from admission at 7.39/40 4/39. She is maintained on long-acting beta agonist, long-acting muscarinic antagonist and inhaled corticosteroids as an outpatient and I will continue those at this time. See no evidence of pneumonia, tracheobronchitis or COPD exacerbation at this time and do not feel there is a need for antibiotics or systemic steroids. (3) CHF exacerbation: Qualifiers: Heart failure type: diastolic Qualified Code(s): I50.33 - Acute on chronic diastolic (congestive) heart failure Code(s): I50.9 - Heart failure, unspecified Status: Resolved Assessment and Plan: Patient currently states that she is breathing back to normal but she remains hypoxic with congestion on her chest x-rays and an elevated BNP at 1750. I recommend aggressively diuresing her as tolerated by her cardiac and renal systems. Currently she is on Lasix 40 IV b.i.d. and she had diuresed 2270 on 07/21. History of Present Illness History of Present Illness Consult date: 07/22/21 Requesting physician: Harriet Pereira MD Reason for consult: COPD and obstructive sleep apnea Chief complaint: Anemia; Dyspnea; Chronic respiratory failure Narrative: 07/22/2021. This is new Pulmonary consult for COPD, obstructive sleep apnea with hypoxemia. Patient is followed in Pulmonary Clinic in last seen on 04/07/2021. Patient has a history of COPD Maintained on Symbicort and in cruise with restrictive lung disease by PFTs on 09/15/2020, Chronic hypoxemic respiratory failure on 4 L nasal cannula at rest, 5 L nasal cannula with activity and BiPAP 10/05 with 6 L bleed in at night With her most recent download demonstrating an AHI of 4.9 with 37% of nights used greater than or equal to 4 hours. patient presented to the hospital on 07/14 with shortness of breath and had a white count of 8.1, a blood gas on 100% non-rebreather 7.39/44/39, a BNP elevated at 22 40, serum bicarb a 26, chest x-ray with cardiomegaly and bilateral in interstitial infiltrates. Patient's COVID test was negative. Patient was admitted to the hospital and treated with bronchodilators, inhaled corticosteroids and diuresis. Patient was never given antibiotics and never given systemic steroids. Patient was not started on any BiPAP at night. Patient remained hypoxemic on 9 L nasal cannula on 07/21/21 and I was consulted. 07/22/21 Patient tells me that she is back to her normal currently. She has been walking in the hallway. Patient has a minimal cough that is unchanged from her baseline. Patient denies any phlegm production, patient denies any hemoptysis. No fever, chills, rigors, chest pain and no wheezes. White count is 8.3, her BNP is 17 50 despite being diuresed a total of 11.4 L since admission, her chest x-ray today demonstrates congestion. currently her saturations are 91% on 9 L high-flow nasal cannula. DATA Summary 1. Complete two-dimensional, color flow and Doppler transthoracic echocardiogram is performed. 2. There is moderate concentric increased left ventricular wall thickness. 3. Left ventricular systoli
[2021-07-22] MEDS: UMECLIDINIUM BROMIDE 62.5 MCG ELLIPTA 1 PUFF INHALATION (08:58)
[2021-07-22] MEDS: EZETIMIBE 10 MG TABLET PO (09:40)
[2021-07-22] MEDS: ATORVASTATIN 40 MG TABLET PO (09:40)
[2021-07-22] MEDS: GABAPENTIN 100 MG CAPSULE PO ×3 (09:40→16:36)
[2021-07-22] MEDS: POLYSACCHARIDE IRON COMPLEX 150 MG CAPSULE PO ×2 (09:40→16:36)
[2021-07-22] MEDS: PANTOPRAZOLE 40 MG TABLET PO (09:40)
[2021-07-22] MEDS: ASPIRIN 81 MG ENTERIC TABLET PO (09:41)
[2021-07-22] MEDS: FUROSEMIDE INJ 40 MG/4 ML VIAL IV PUSH (09:41)
[2021-07-22 11:55] LABS: Glucose Point of Care 123 mg/dl (65-105)
--- NOTE | 2021-07-22 15:56 | PM.IMPN ---
Progress Note: A&P Assessment and Plan (1) Acute on chronic blood loss anemia: Code(s): D62 - Acute posthemorrhagic anemia Status: Acute Assessment and Plan: There is no sign of active bleeding on EGD which shows erosive gastritis and only small ulcers. Continue with ppi. Plan for SB capsule endoscopy as outpatient to assess rest of small bowel; continue with iron supplements. (2) Acute and chronic respiratory failure: Code(s): J96.20 - Acute and chronic respiratory failure, unspecified whether with hypoxia or hypercapnia Status: Acute Assessment and Plan: 15 L on non rebreather in emergency room Home oxygen at 4-6 liters at home. requires bipap 10/05 with 6 liters oxygen bleed in. Initially with improvement of respiratory status with lower oxygen requirements down to 8 liters. Despite aggressive diuresis no further improvement and she is back to 9 liters today. She appears well clinically and has been tolerating daily PT and making steady progress. Patient has a history of chronic COPD and is dependent on home oxygen. Continue supplemental oxygen, wean to maintain saturation >90%. Nebulizer treatments. Continue home Incruse ellipta 1 puff daily. Trend SPO2; currently saturated 90% on 10 liters. Covid was negative (3) CHF exacerbation: Qualifiers: Heart failure type: diastolic Qualified Code(s): I50.33 - Acute on chronic diastolic (congestive) heart failure Code(s): I50.9 - Heart failure, unspecified Status: Resolved Assessment and Plan: Chest x-ray suggests possible pulmonary edema. Crackles heard on exam. Echocardiogram on 07/17 : Left ventricular systolic function is normal, estimated at 65-70%. Patient has had vigorous diuresis making upward of 3.5 liters of urine per day. Troughout this kdiney function has been monitored closely with creatinine stable at 0.9, Continue IV lasix 40mg IV BID, (Home dose 20mg PO BID) Fluid restriction 1.5 liters per day repeat chest Xray. Daily weights There is likely an element of acute on chronic exacerbation. repeat chest xray Cardiomegaly with developing interstitial edema on 07/14/2021. Strict I&O and daily weights (4) COPD (chronic obstructive pulmonary disease): Qualifiers: COPD type: unspecified COPD Qualified Code(s): J44.9 - Chronic obstructive pulmonary disease, unspecified Code(s): J44.9 - Chronic obstructive pulmonary disease, unspecified Status: Chronic Assessment and Plan: Chronic oxygen use 4-6L NC There is no evidence of acute cOPD exacerbation. Continue home medications Incruse ellipta 1 puff daily, symbicort 2 puff BID, albuterol nebs Supplemental oxygen, wean to maintain saturation >90% Consider multiple small meals Smoking cessation education (5) HTN (hypertension), malignant: Code(s): I10 - Essential (primary) hypertension Status: Chronic Assessment and Plan: Current blood pressure 100/60, which is within acceptable range. Stopped home amlodipine. Trend BP Adjust medications as needed (6) Diabetes mellitus: Qualifiers: Diabetes mellitus type: type 2 Diabetes mellitus correction insulin use: without correction use Diabetes mellitus complication status: with hyperglycemia Qualified Code(s): E11.65 - Type 2 diabetes mellitus with hyperglycemia Code(s): E11.9 - Type 2 diabetes mellitus without complications Status: Chronic Assessment and Plan: glucose on labs 110. Accu-Cheks AC and HS in the 100-124 range. A1c 6.0 hypoglycemia protocol Hold metformin for now Insulin sliding scale Trend glucose. Fasting glucose 119 Accu-checks in manjeet 119-149 range Adjust medications as needed (7) Erosive gastritis: Code(s): K29.60 - Other gastritis without bleeding Status: Acute Assessment and Plan: Hb remains stable. EGD reveals erosive gastritis and small ulcers. Plan for capsule endoscopy per GI as an outpatient. Continue o
[2021-07-22] MEDS: FUROSEMIDE INJ 100 MG/10 ML VIAL 80 MG IV PUSH (16:36)
[2021-07-22 16:55] LABS: Glucose Point of Care 100 mg/dl (65-105)
[2021-07-22 21:34] LABS: Glucose Point of Care 148 mg/dl (65-105)
[2021-07-23] VITALS (13 sets, daily range): BP systolic 103; BP diastolic 59–68; PULSE 64–105; RESP 14–20; TEMP 36–36.6; O2SAT 86–98
[2021-07-23 06:22] LABS: Hematocrit 29.7 % (37.0-47.0); Hemoglobin 8.7 g/dL (12.0-15.0); Mean Corpuscular HGB Conc 29.3 g/dl (32-36); Mean Corpuscular Volume 75.2 fl (80-100); Mean Platelet Volume 10.5 fl (7.4-10.4); Platelet Count Result 235 k/mm3 (150-375); Red Blood Count 3.95 M/mm3 (4.2-5.4); Red Cell Distribution Width 23.2 % (11.5-14.5)
[2021-07-23 06:34] LABS: Blood Urea Nitrogen 18 mg/dL (7-17); Calcium 9.6 mg/dL (8.4-10.2); Carbon Dioxide > 40 mmol/L (22-30); Chloride 95 mmol/L (98-107); Estimated CRCL calculation 75 ml/min; Estimated Glomerular Filt Rate > 60; Glucose 118 mg/dL (65-110); Potassium 3.6 mmol/L (3.4-5.0); Sodium 142 mmol/L (137-145)
--- NOTE | 2021-07-23 07:31 | PM.PNPUL ---
Progress Note: A&P Assessment and Plan (1) Obstructive sleep apnea: Code(s): G47.33 - Obstructive sleep apnea (adult) (pediatric) Status: Acute Assessment and Plan: Patient is on home BiPAP at 12/7 with 6 L bleed in. I will initiate this therapy tonight. I have contacted conference service coordinator to get a download from her [employer] company which is [facility]. (2) Chronic hypoxemic respiratory failure: Code(s): J96.11 - Chronic respiratory failure with hypoxia Status: Acute Assessment and Plan: 07/22 Patient carries a diagnosis of COPD but has a restrictive PFT pattern on 09/15/2020. At home she is on 4 L at rest, 5 L with activity and 6 L bleed in at night with her BiPAP 10/05. She is morbidly obese. There is no evidence of hypercarbic respiratory failure on her current blood gas from admission at 7.39/40 4/39. She is maintained on long-acting beta agonist, long-acting muscarinic antagonist and inhaled corticosteroids as an outpatient and I will continue those at this time. See no evidence of pneumonia, tracheobronchitis or COPD exacerbation at this time and do not feel there is a need for antibiotics or systemic steroids. 07/23 Patient states that she is breathing at her baseline and breathing better than she was when she left the hospital in March. Patient remains on 8 L nasal cannula saturations 89-90%. Patient did not wear the hospital BiPAP 10/05 last night. The patient says they did not bring the machine in to late but when I spoke with the respiratory therapist the patient told her she would call when she was ready to put it on and never called to indicate to put it on. No wheezes on exam. Patient does not have a Pope in and ambulates in the hallway. I was able to obtain a download from 04/22/2021 through 07/20/2021. Days used was 10 or 11%, days used greater than or equal to 4 hours was 0 days. Average usage days used was 1 hour and 55 minutes. Patient was on a BiPAP 7 and her AHI was 0.1. Her median leak was 66.1, 95th percentile leak 70.9, maximum leak 73. I asked patient about her usage at home and she said the machine just does not fit right and it is uncomfortable with a large leak. I have stressed the importance of wearing this machine and she says she will attempt to wear it more often at home. I spoken to the respiratory manager urgent care and we will perform a home O2 assessment with an Oxymizer. We will check with [facility] to ensure she has a 10 L concentrator. We will send orders to wear her BiPAP 12/7 with 8 L bleed in and then perform a home O2 assessment on the 8 L bleed in. Will have [facility] refit the patient for mask that is comfortable. If we are able to oxygen the patient adequately with an Oxymizer apparatus she is stable for discharge on these Pulmonary Medicine Symbicort 160-4.5 at 2 puffs b.i.d. incruse ellipta 62.5 at 1 puff q.day rescue albuterol 2 puffs q.4 hours p.r.n. shortness of breath or wheezing oxygen per home O2 assessment (I have ordered) BiPAP 12/7 with 8 L bleed in when she sleeps. Lasix dose determine per hospitalist. Follow-up with pulmonary on previously scheduled visit on 08/16/2021 at 10:[address] Pereira. if patient remains in the hospital in patient pulmonary services will resume on 07/26. Call with questions. (3) CHF exacerbation: Qualifiers: Heart failure type: diastolic Qualified Code(s): I50.33 - Acute on chronic diastolic (congestive) heart failure Code(s): I50.9 - Heart failure, unspecified Status: Resolved Assessment and Plan: Patient currently states that she is breathing back to normal but she remains hypoxic with congestion on her chest x-rays and an elevated BNP at 1750. I recommend aggressively diuresing her as tolerated by her cardiac and renal systems. Currently she is on Lasix 40 IV b.i.d. and she had diuresed 0 on 07/21. Sh
[2021-07-23 08:11] LABS: Glucose Point of Care 104 mg/dl (65-105)
[2021-07-23] MEDS: PANTOPRAZOLE 40 MG TABLET PO (08:30)
[2021-07-23] MEDS: GABAPENTIN 100 MG CAPSULE PO ×2 (08:30→12:58)
[2021-07-23] MEDS: POLYSACCHARIDE IRON COMPLEX 150 MG CAPSULE PO (08:30)
[2021-07-23] MEDS: ASPIRIN 81 MG ENTERIC TABLET PO (08:31)
[2021-07-23] MEDS: ATORVASTATIN 40 MG TABLET PO (08:31)
[2021-07-23] MEDS: FUROSEMIDE INJ 100 MG/10 ML VIAL 80 MG IV PUSH (08:31)
[2021-07-23] MEDS: EZETIMIBE 10 MG TABLET PO (08:31)
[2021-07-23] MEDS: UMECLIDINIUM BROMIDE 62.5 MCG ELLIPTA 1 PUFF INHALATION (09:42)
[2021-07-23 11:59] LABS: Glucose Point of Care 94 mg/dl (65-105)
--- NOTE | 2021-07-23 15:20 | HOMEO2EVAL ---
Evaluation was performed at [facility] Home Oxygen Evaluation RC: Home Oxygen (O2) Evaluation Start: 07/23/21 07:42 Freq: ONCE Status: Active Protocol: RPE Activity Type Activity Date Activity User E-Sign Co-Sign Detail Recorded Client Recorded Date Recorded By Document 07/23/21 14:30 JULIUS [id number] 07/23/21 15:20 JULIUS Document 07/23/21 14:31 JULIUS [id number] 07/23/21 15:20 JULIUS Document 07/23/21 14:32 JULIUS [email or web address] 07/23/21 15:20 JULIUS Document 07/23/21 14:33 JULIUS [email or web address] 07/23/21 15:20 JULIUS Document 07/23/21 14:35 JULIUS [email or web address] 07/23/21 15:20 JULIUS Document 07/23/21 14:36 JULIUS [email or web address] 07/23/21 15:20 JULIUS Document 07/23/21 14:37 JULIUS [email or web address] 07/23/21 15:20 JULIUS Document 07/23/21 14:38 JULIUS [email or web address] 07/23/21 15:20 JULIUS Document 07/23/21 14:45 JULIUS [id number] 07/23/21 15:20 JULIUS 07/23/21 07/23/21 07/23/21 14:30 14:31 14:32 Home O2 Evaluation Test Phase Resting Resting Resting Oxygen Delivery Room Air Oxymizer Oxymizer Oxygen Flow Rate (L/min) 2 3 Pulse Oximetry (90-100 %) 86 L 86 L 86 L Pulse Rate (60-100 beats/min) Ambulation Distance (feet) Home Oxygen Evaluation Comments Treatment Charges O2 Evaluation - Inpatient 07/23/21 07/23/21 07/23/21 14:33 14:35 14:36 Home O2 Evaluation Test Phase Resting Exercise Exercise Oxygen Delivery Oxymizer Oxymizer Oxymizer Oxygen Flow Rate (L/min) 4 4 5 Pulse Oximetry (90-100 %) 93 87 L 87 L Pulse Rate (60-100 beats/min) 71 Ambulation Distance (feet) Home Oxygen Evaluation Comments Treatment Charges 07/23/21 07/23/21 07/23/21 14:37 14:38 14:45 Home O2 Evaluation Test Phase Exercise Exercise Resting Oxygen Delivery Oxymizer Oxymizer Oxymizer Oxygen Flow Rate (L/min) 7 8 4 Pulse Oximetry (90-100 %) 87 L 89 L 94 Pulse Rate (60-100 beats/min) 105 H 74 Ambulation Distance (feet) 50 Home Oxygen Evaluation Comments PT REQUIRES 4 L WITH OXYMIZER AT REST AND 8 L WITH OXYMIZER WITH EXERTION Treatment Charges
--- NOTE | 2021-07-23 16:17 | PCRCNOTE ---
Home oxygen evaluation completed. Patient requires 4 liters per minute at rest/8 liters per minute with activity via oxymizer. Patient already has home oxygen and bipap with [facility] ([phone]) and they are aware of increased oxygen needs as well as order for bipap mask check and overnight oximetry study to be performed in patients home on bipap with an 8 liter oxygen bleed-in. Patient's daughter to bring tank for discharge home.
--- NOTE | 2021-07-25 21:11 | PM.DS ---
DS: Admitting Diagnosis Discharge Date 07/23/21 Admitting Diagnosis Acute and chronic respiratory failure with hypoxia DS: Discharge Diagnosis Discharge Diagnosis (1) Acute on chronic respiratory failure with hypoxemia: Code(s): J96.21 - Acute and chronic respiratory failure with hypoxia Status: Resolved (2) Acute diastolic (congestive) heart failure: Code(s): I50.31 - Acute diastolic (congestive) heart failure Status: Acute (3) Pulmonary hypertension assoc with unclear multi-factorial mechanisms: Code(s): I27.29 - Other secondary pulmonary hypertension Status: Acute (4) CHF exacerbation: Qualifiers: Heart failure type: diastolic Qualified Code(s): I50.33 - Acute on chronic diastolic (congestive) heart failure Code(s): I50.9 - Heart failure, unspecified Status: Resolved Assessment and Plan: Chest x-ray suggests possible pulmonary edema. Crackles heard on exam. Echocardiogram on 07/17 : Left ventricular systolic function is normal, estimated at 65-70%. Patient has had vigorous diuresis making upward of 3.5 liters of urine per day. Troughout this kdiney function has been monitored closely with creatinine stable at 0.9, Continue IV lasix 40mg IV BID, (Home dose 20mg PO BID) Fluid restriction 1.5 liters per day repeat chest Xray. Daily weights There is likely an element of acute on chronic exacerbation. repeat chest xray Cardiomegaly with developing interstitial edema on 07/14/2021. Strict I&O and daily weights (5) COPD (chronic obstructive pulmonary disease): Qualifiers: COPD type: unspecified COPD Qualified Code(s): J44.9 - Chronic obstructive pulmonary disease, unspecified Code(s): J44.9 - Chronic obstructive pulmonary disease, unspecified Status: Chronic Assessment and Plan: Chronic oxygen use 4-6L NC There is no evidence of acute cOPD exacerbation. Continue home medications Incruse ellipta 1 puff daily, symbicort 2 puff BID, albuterol nebs Supplemental oxygen, wean to maintain saturation >90% Consider multiple small meals Smoking cessation education (6) Acute on chronic blood loss anemia: Code(s): D62 - Acute posthemorrhagic anemia Status: Acute Assessment and Plan: There is no sign of active bleeding on EGD which shows erosive gastritis and only small ulcers. Continue with ppi. Plan for SB capsule endoscopy as outpatient to assess rest of small bowel; continue with iron supplements. (7) Acute and chronic respiratory failure: Code(s): J96.20 - Acute and chronic respiratory failure, unspecified whether with hypoxia or hypercapnia Status: Acute Assessment and Plan: 15 L on non rebreather in emergency room Home oxygen at 4-6 liters at home. requires bipap 12/7 with 6 liters oxygen bleed in. Initially with improvement of respiratory status with lower oxygen requirements down to 8 liters. Despite aggressive diuresis no further improvement and she is back to 9 liters today. She appears well clinically and has been tolerating daily PT and making steady progress. Patient has a history of chronic COPD and is dependent on home oxygen. Continue supplemental oxygen, wean to maintain saturation >90%. Nebulizer treatments. Continue home Incruse ellipta 1 puff daily. Trend SPO2; currently saturated 90% on 10 liters. Covid was negative (8) HTN (hypertension), malignant: Code(s): I10 - Essential (primary) hypertension Status: Chronic Assessment and Plan: Current blood pressure 100/60, which is within acceptable range. Stopped home amlodipine. Trend BP Adjust medications as needed (9) Diabetes mellitus: Qualifiers: Diabetes mellitus complication status: with hyperglycemia Diabetes mellitus termite treater insulin use: without termite treater use Diabetes mellitus type: type 2 Qualified Code(s): E11.65 - Type 2 diabetes mellitus with hyperglycemia Code(s): E11.9 - Type 2 diabetes
== END 2021-07-23 17:00 | disposition home or self-care (01) | DRG 391 ==
LOC: ANHED 12:50 → ANH3MEDSUR 07-15 06:25
PROVIDERS: Internal Medicine Gastroenterology; Internal Medicine Hematology & Oncology; Internal Medicine Pulmonary Disease; Nurse Practitioner; Admitting Provider Internal Medicine; Emergency Provider Emergency Medicine; PCP Internal Medicine Infectious Disease; Visit Provider Internal Medicine
PROC: 0DJ08ZZ Inspection of Upper Intestinal Tract, Via Natural or Artificial Opening Endoscopic (ICD-10-PCS; CPT 43235; principal; 2021-07-16 14:30)
DX: K29.60 Other gastritis without bleeding (principal); J96.21 Acute and chronic respiratory failure with hypoxia; I50.33 Acute on chronic diastolic (congestive) heart failure; D62 Acute posthemorrhagic anemia; Z68.42 Body mass index [BMI] 45.0-49.9, adult; I11.0 Hypertensive heart disease with heart failure; D50.9 Iron deficiency anemia, unspecified; K44.9 Diaphragmatic hernia without obstruction or gangrene; Z20.822 Contact with and (suspected) exposure to COVID-19; E66.01 Morbid (severe) obesity due to excess calories; I27.29 Other secondary pulmonary hypertension; E11.65 Type 2 diabetes mellitus with hyperglycemia; J44.9 Chronic obstructive pulmonary disease, unspecified; G47.33 Obstructive sleep apnea (adult) (pediatric); Z79.82 Long term (current) use of aspirin; Z79.84 Long term (current) use of oral hypoglycemic drugs; Z79.899 Other long term (current) drug therapy; Z87.891 Personal history of nicotine dependence; Z88.0 Allergy status to penicillin; Z88.2 Allergy status to sulfonamides; Z99.81 Dependence on supplemental oxygen
CPT/HCPCS: 36415; 36430; 36600; 71045; 74177; 80048; 80053; 80076; 82274; 82607; 82728; 82746; 82805; 82948; 83036; 83540; 83550; 83605; 83615; 83735; 83880; 84100; 84443; 84484; 85014; 85018; 85025; 85027; 85055; 85610; 85730; 86850; 86900; 86901; 86920; 88305; 93005; 93306; 94618; 94640; 94667; 96374; 97110; 97116; 97162; 97165; 97535; 99285; A9270; C9113; C9803; J1756; J1940; J2704; J7050; J7120; P9016; Q9967; U0003; U0005

== ENCOUNTER 2021-10-01 11:16 | Inpatient (IN) | payer MEDICARE, MEDICAID, SELFPAY ==
[2021-10-01] VITALS (62 sets, daily range): BP systolic 80–115; BP diastolic 38–99; PULSE 78–110; RESP 14–27; TEMP 35.9–36.8; O2SAT 70–100; BMI 43.2
--- NOTE | ~2021-10-01 | XR_ITS ---
XR chest 1V portable 10/01/2021 12:35 Indication: Extreme fatigue Procedure: AP portable chest Comparison: Comparison to multiple prior studies sequentially, with oldest reviewed study dated 06/2021. Findings: Cardiomegaly. There is interstitial edema. No significant pleural effusion or pneumothorax. No acute osseous abnormality. Impression: 1: Cardiomegaly with interstitial edema. Reviewed, dictated and finalized at location A. BUSINESS DEVELOPMENT MANAGER Impression: 1: Cardiomegaly with interstitial edema.
--- NOTE | ~2021-10-01 | XR_ITS ---
EXAMINATION: XR small bowel follow through DATE: 10/04/2021 17:09 INDICATION: Iron deficiency anemia TECHNIQUE: Machine Rope Maker radiograph of the abdomen was obtained. Oral contrast was administered, and sequent ial radiographs of the abdomen were obtained until oral contrast was noted to be in the proximal colo n. Spot fluoroscopic images of the small bowel were obtained. Fluoroscopy exposure time was 0.7 minut es. The DAP for this procedure was 570.401 Gycm2. COMPARISON: CT, 07/15/2021 FINDINGS: Machine Rope Maker image demonstrates a normal bowel gas pattern. There is severe lumbar spondylosis. Tr ansit time from the stomach to proximal colon was approximately four hours. There is normal caliber a nd mucosal fold pattern throughout the small bowel. No tethering or abnormal mass effect observed up on the small bowel with real-time fluoroscopy. IMPRESSION: 1. Unremarkable small bowel follow-through. Reviewed, dictated and finalized at location A. ENT SUPPORT ASSISTANT
--- NOTE | 2021-10-01 12:10 | ECG_ITS ---
Measurements Intervals [place] Rate: 97 P: 64 FL: 173 QRS: 2 QRSD: 90 T: 76 QT: 388 QTc: 495 Interpretive Statements SINUS RHYTHM DELAYED PRECORDIAL R/S TRANSITION BORDERLINE ST-T WAVE ABNORMALITY- HIGH LATERAL LEADS BASELINE WANDER- II, III, V5 BORDERLINE ECG Electronically Signed On 10-01-2021 12:42:57 MATHEMATICAL SCIENTIST by Jett Hopkins D.O.
[2021-10-01 12:38] LABS: Base Excess ABG -5.1 mEq/l (+/-2.0); Carboxyhemoglobin 0.3 % THb (0-2.0); Fractional Inspired Oxygen 21 %; HCO3 ABG 20.5 mEq/l (22.0-26.0); PCO2 ABG 40.7 mmHg (35.0-45.0); Reduced Hemoglobin 83.5 %THb (0-5.0)
[2021-10-01 12:40] LABS: PO2 ABG 16.8 mmHg (80.0-100.0)
[2021-10-01 12:41] LABS: Oxygen Saturation ABG 21.3 % (95.0-100.0); Total Hemoglobin 4.5 g/dL (12.0-18.0)
[2021-10-01 12:42] LABS: Device ROOM AIR; Modified Allen's Test Pass; Oxyhemoglobin 12.2 % THb (90.0-100.0); Site Drawn LEFT RADIAL
--- NOTE | 2021-10-01 12:49 | PC.NURSE ---
EMS was unable to get IV on patient. RN attempted IV without success. Pt with poor vasculature. Will have second RN attempt line with ultrasound.
[2021-10-01] MEDS: ONDANSETRON INJ 4 MG/2 ML VIAL IV PUSH ×2 (13:16→16:20)
--- NOTE | 2021-10-01 13:16 | ED.GENADULT ---
HPI - General Adult General Chief complaint: Nausea/Vomiting/Diarrhea Stated complaint: N/V since 09/30 2021 Time Seen by Provider: 10/01/21 12:01 Source: patient, RN notes reviewed and old records reviewed Mode of arrival: EMS Limitations: no limitations History of Present Illness HPI narrative: This is 61 year old female with history of CHF, chronic respiratory failure on home O2 4 LNC who presents from home evaluation of nausea, vomiting and diarrhea. Patient states she received her influenza vaccination yesterday. She developed nausea, vomiting and diarrhea afterwards. She states she is hot and cold but denies measured fever. She has intermitent abdominal pain but denies abdominal pain currently. She denies chest pain but reports she has chronic sob. She is unsure if sob is worsening. She is also complaining of bilateral feet swelling this morning. She denies runny nose, sore throat or congestion. Related Data Home Medications Medication Instructions Recorded Confirmed aspirin [Aspir-81] 81 mg PO DAILY 09/08/19 08/17/21 atorvastatin 40 mg PO DAILY 09/08/19 08/17/21 ezetimibe 10 mg PO DAILY 09/08/19 08/17/21 polysaccharide iron complex 150 mg PO BID 07/11/20 08/17/21 [Poly-Iron] metformin 500 mg PO DAILY 04/07/21 08/17/21 polyethylene glycol 3350 [Miralax] 17 g PO QAM PRN 04/07/21 08/17/21 Allergies Allergy/AdvReac Type Severity Reaction Status Date / Time Penicillins Allergy Hives Verified 10/01/21 11:38 Sulfa (Sulfonamide Allergy Itching Verified 10/01/21 11:38 Antibiotics) Review of Systems Review of Systems: All systems reviewed & are unremarkable except as noted in HPI and below PMFSH Past Medical History Medical History (Updated 10/02/21 @ 00:17 by Deisy Moses MD) Acute on chronic blood loss anemia Adrenal mass Anemia Chronic hypoxemic respiratory failure Congestive heart failure COPD (chronic obstructive pulmonary disease) Diabetes mellitus HTN (hypertension), malignant Hyperlipidemia Hypertension Lung nodule 11 mm Tobacco abuse 35 pack year, quit Aug 2019. Surgical History Surgical History H/O section x3 H/O colonoscopy with polypectomy H/O esophagogastroduodenoscopy History of appendectomy Hx of cholecystectomy Family History Family History Grandparent Congestive heart failure Mother HTN (hypertension) with goal to be determined Hyperlipidemia Cancer Sibling Age: 54 HTN (hypertension) with goal to be determined Asthma Lupus Sibling Age: 51 Diabetes mellitus Heart disease Social History Social History Social History: The patient typically smoked 1 pack a cigarettes a day for 35 years. she said she stop smoking August of 2019. She has 3 children. She is unemployed at this time. She does not have a durable power energy attorney. But wants to be a full code. She became disabled many years ago 2007 when she injured her back. 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 She lives with her friend Smoking packs per day: 2 Smoking cigarettes per day: 40.0 Years smoked: 30 Smoking pack-years: 60.00 Smoking status: Former smoker Tobacco type: cigarettes Smoking end date: 10/30/18 Alcohol intake: former Alcohol use details: Drank more in the past, occasional use now. Substance use: never Substance use type: does not use Additional living arrangements comments: Lives with her sister. 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 Gender identity (if verbalized by the patient): Female Spiritual care concerns: No Agree to blood products: Yes E
[2021-10-01] MEDS: SODIUM CHLORIDE 0.9% IV 500 ML 999 ML IV CONT (13:17)
[2021-10-01 13:45] LABS: Basophils Percent Auto 0.2 % (0.2-1.2); Immature Granulocyte Absolute 0.05 K/mm3 (0.00-0.031); Immature Granulocyte Percent A 0.5 % (0-0.5); Immature Platelet Fraction Pct 6.3 % (0.9-11.2); Lymphocytes Absolute Auto 0.77 K/mm3 (0.9-3.2); Lymphocytes Percent Auto 7.6 % (18.3-44.2); Mean Corpuscular HGB Conc 28.9 g/dl (32-36); Mean Corpuscular Hemoglobin 20.6 pg (26-34); Mean Corpuscular Volume 71.3 fl (80-100); Mean Platelet Volume 10.9 fl (7.4-10.4); Monocytes Absolute Auto 0.3 K/mm3 (0.1-0.6); Monocytes Percent Auto 2.6 % (2.6-8.5); Neutrophils Absolute Auto 9.1 K/mm3 (1.3-6.7); Neutrophils Percent Auto 89.1 % (45.5-73.1); Nucleated Red Blood Cells Perc 0.2 % (0.0-0.2); Platelet Count Result 214 k/mm3 (150-375); Red Blood Count 2.09 M/mm3 (4.2-5.4); Red Cell Distribution Width 21.8 % (11.5-14.5); White Blood Count 10.2 K/mm3 (4.5-10.0)
[2021-10-01 14:05] LABS: INR 1.8; Partial Thromboplastin Time 30.9 SECONDS (22.3-36.8); Prothrombin Time 20.1 Seconds (11.1-14.7)
[2021-10-01 14:32] LABS: Hemoglobin 4.3 g/dL (12.0-15.0)
--- NOTE | 2021-10-01 14:32 | PC.NURSE ---
Numerous attempts made by ER nurses to obtain bloodwork and IV on patient, including with the ultrasound. Delisa now at bedside with ultrasound.
[2021-10-01 14:33] LABS: Hematocrit 14.9 % (37.0-47.0)
[2021-10-01 14:35] LABS: Lactic Acid Reflex 5.4 mmol/L (0.7-2.1)
[2021-10-01 14:35] LABS: Anisocytosis 2+ (NORMAL); Hypochromasia 2+ (NORMAL); Platelet Estimate Adequate (Adequate); Poikilocytosis 1+ (NORMAL); Schistocytes 1+ (NORMAL)
[2021-10-01 15:18] LABS: Troponin I < 0.012 ng/mL (0.000-0.034)
[2021-10-01 15:30] LABS: Iron 20 ug/dL (37-170)
[2021-10-01 15:39] LABS: Percent Iron Saturation 5 % (20-50)
[2021-10-01 15:56] LABS: Alanine Aminotransferase 13 U/L (4-35); Albumin Level 3.2 g/dL (3.5-5.1); Alkaline Phosphatase 80 U/L (38-126); Anion Gap 13 mmol/L (8-16); Aspartate Amino Transferase 29 U/L (14-36); Bilirubin,Total 0.4 mg/dL (0.2-1.3); Blood Urea Nitrogen 56 mg/dL (7-17); CRP 0.7 mg/dL (<1.0); Calcium 8.4 mg/dL (8.4-10.2); Carbon Dioxide 18 mmol/L (22-30); Chloride 107 mmol/L (98-107); Estimated CRCL calculation 110 ml/min; Estimated Glomerular Filt Rate > 60; Glucose 116 mg/dL (65-110); Lipase 142 U/L (23-300); Magnesium 2.1 mg/dL (1.6-2.3); Potassium 4.1 mmol/L (3.4-5.0); Sodium 138 mmol/L (137-145)
[2021-10-01 16:02] LABS: NT Pro B Type Natriuretic Pept 5160 pg/mL (5-100)
[2021-10-01] MEDS: PANTOPRAZOLE SODIUM IV 40 MG VIAL 80 MG IV PUSH (16:25)
[2021-10-01] MEDS: SODIUM CHLORIDE 0.9% IV 250 ML 30 ML IV CONT (16:25)
[2021-10-01] MEDS: TUBING, BLOOD SET 1 EACH XX (16:29)
[2021-10-01 16:37] LABS: Add Urine Microscopic? YES; Appearance Urine Cloudy (Clear); Bilirubin Urine Negative (Negative); Blood Urine 1+ (Negative); Color Urine Yellow (Yellow); Glucose Urine UA Negative (Negative); Ketones Urine Negative (Negative); Leukocyte Esterase Ur 3+ LEU/UL (Negative); Mucus Urine Rare /lpf; Nitrate Urine Negative (Negative); Protein Urine Negative (Negative); Specific Grav Ur 1.013 (1.001-1.035); Squamous Epithelial Cell Urine Occasional /hpf (Few); Urobilinogen Urine Negative mg/dL (<2.0); WBC Urine 21-30 /hpf
[2021-10-01 17:07] LABS: Reflex Lactic Acid Yes or No Add Lactic
[2021-10-01 17:10] LABS: Folic Acid 7.5 ng/mL (2.76->20)
[2021-10-01] MEDS: cefTRIAXone 2 GM in SODIUM CHLORIDE 0.9% IV 100 ML 200 ML IVPB (19:14)
--- NOTE | 2021-10-01 19:29 | PC.NURSE ---
Medium sized black liquid bowel movement. Pt cleaned up. Second unit almost finished infusing. Admitting team at bedside. VS as charted, pt A&Ox4 in NAD currently.
--- NOTE | 2021-10-01 21:14 | PM.IMHP ---
H&P: HPI History of Present Illness Date/Time: 10/01/21 21:14 this is a 61-year-old and [place] female who has a history of CHF, chronic respiratory failure on 4-5 L at home due to COPD. The patient came to the emergency room to be evaluated for nausea vomiting and diarrhea. The patient stated that was dark blood coming from her rectum. She is having waves of hot and cold but denies any fever. She denied any abdominal tenderness. She is complaining of edema to her lower extremities. Patient's H&H is 4.3 and 14.9 when her hemoglobin is typically around 8. Lactic acid 5.4. BNP 5160. Urine positive for leukocyte esterase with wbc's 21-30. The patient was started on Zofran, IV fluids, Protonix, Rocephin, and Lasix. The patient is receiving a blood transfusion at this point. Chest x-ray was read as cardiomegaly with interstitial edema. Patient is being admitted to observation status on the date of service of 10/01/2021. Chief Complaint: weak Review of Systems Review of Systems: All systems reviewed & are unremarkable except as noted in HPI and below Constitutional: Constitutional: Reports as per HPI and Reports no additional constitutional complaints Eyes: Eyes: Reports as per HPI and Reports no additional eye complaints ENT: Reports system reviewed and no additional complaints, except as documented and Reports Normal hearing present Cardiovascular: Cardiovascular: Reports no additional cardiovascular complaints Respiratory: Respiratory: Reports no additional respiratory complaints and Reports no additional respiratory complaints Gastrointestinal: Gastrointestinal: Reports as per HPI and Reports no additional gastrointestinal complaints Musculoskeletal: Musculoskeletal: Reports no additional musculoskeletal complaints Integumentary/Breasts: Skin/Breast: Reports system reviewed and no additional complaints, except as docu and Reports as per HPI Neurologic: Reports system reviewed and no additional complaints, except as documented, Reports as per HPI and Reports Normal hearing present Psychiatric: Psychiatric: Reports no additional psychiatric complaints and Reports as per HPI Endocrine: Endocrine: Reports no additional endocrine complaints Hematologic/Lymphatic: Hematologic/Lymphatic: Reports no additional hematologic/lymphatic complaints Allergic/Immunologic: Allergic/Immunologic: Reports no additional allergic/immunologic complaints [facility] Past Medical History Medical History (Updated 10/01/21 @ 21:41 by Sarah London NP) Acute on chronic blood loss anemia Adrenal mass Anemia Chronic hypoxemic respiratory failure Congestive heart failure COPD (chronic obstructive pulmonary disease) Diabetes mellitus HTN (hypertension), malignant Hyperlipidemia Hypertension Lung nodule 11 mm Tobacco abuse 35 pack year, quit Aug 2019. Surgical History Surgical History H/O section x3 H/O colonoscopy with polypectomy H/O esophagogastroduodenoscopy History of appendectomy Hx of cholecystectomy Family History Family History Grandparent Congestive heart failure Mother HTN (hypertension) with goal to be determined Hyperlipidemia Cancer Sibling Age: 54 HTN (hypertension) with goal to be determined Asthma Lupus Sibling Age: 51 Diabetes mellitus Heart disease Social History Social History Social History: The patient typically smoked 1 pack a cigarettes a day for 35 years. she said she stop smoking August of 2019. She has 3 children. She is unemployed at this time. She does not have a durable power immigration attorney. But wants to be a full code. She became disabled many years ago 2007 when she injured her back. 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 She lives with her friend Sm
[2021-10-01 21:29] LABS: Hematocrit 21.4 % (37.0-47.0)
[2021-10-01 21:31] LABS: Hemoglobin 6.4 g/dL (12.0-15.0)
[2021-10-01 21:40] LABS: Lactic Acid 2.7 mmol/L (0.7-2.1)
[2021-10-01] MEDS: FUROSEMIDE INJ 40 MG/4 ML VIAL 20 MG IV PUSH (23:12)
--- NOTE | 2021-10-01 23:25 | ADMGEN ---
This patient, Maura Hill, was admitted to Intensive Care Unit-10 at 2205. Patient/family oriented to hospital policies and general routines including ID bracelet, bed and alarms, visiting hours, pain management, procedures, bathroom and other care routines, personal items, smoking policy, room service/diet, and visiting hours. Information on how to activate the Rapid Response Team has been discussed. Patient/Family are encouraged to report perceived risks to care and to ask questions if they do not understand what they are told or what they should do.
[2021-10-02] VITALS (26 sets, daily range): BP systolic 85–110; BP diastolic 52–68; PULSE 59–81; RESP 9–20; TEMP 36.3–36.9; O2SAT 90–100
[2021-10-02 03:05] LABS: Basophils Percent Auto 0.2 % (0.2-1.2); Hematocrit 22.9 % (37.0-47.0); Immature Granulocyte Absolute 0.03 K/mm3 (0.00-0.031); Immature Granulocyte Percent A 0.3 % (0-0.5); Immature Platelet Fraction Pct 6.4 % (0.9-11.2); Lymphocytes Absolute Auto 1.32 K/mm3 (0.9-3.2); Lymphocytes Percent Auto 13.4 % (18.3-44.2); Mean Corpuscular HGB Conc 30.6 g/dl (32-36); Mean Corpuscular Hemoglobin 24.1 pg (26-34); Mean Platelet Volume 11.2 fl (7.4-10.4); Monocytes Absolute Auto 0.6 K/mm3 (0.1-0.6); Neutrophils Absolute Auto 7.9 K/mm3 (1.3-6.7); Neutrophils Percent Auto 80.1 % (45.5-73.1); Nucleated Red Blood Cells Perc 0.2 % (0.0-0.2); Platelet Count Result 194 k/mm3 (150-375); Red Cell Distribution Width 21.1 % (11.5-14.5); White Blood Count 9.8 K/mm3 (4.5-10.0)
[2021-10-02 03:20] LABS: Alanine Aminotransferase 11 U/L (4-35); Albumin Level 3.1 g/dL (3.5-5.1); Alkaline Phosphatase 79 U/L (38-126); Anion Gap 9 mmol/L (8-16); Aspartate Amino Transferase 29 U/L (14-36); Bilirubin,Total 0.5 mg/dL (0.2-1.3); Blood Urea Nitrogen 62 mg/dL (7-17); Calcium 8.4 mg/dL (8.4-10.2); Carbon Dioxide 22 mmol/L (22-30); Chloride 110 mmol/L (98-107); Estimated CRCL calculation 61 ml/min; Estimated Glomerular Filt Rate 55; Glucose 138 mg/dL (65-110); Potassium 4.2 mmol/L (3.4-5.0); Sodium 141 mmol/L (137-145)
[2021-10-02 08:49] LABS: Hemoglobin 6.9 g/dL (12.0-15.0)
[2021-10-02] MEDS: PANTOPRAZOLE SODIUM IV 40 MG VIAL IV PUSH ×2 (09:15→21:08)
[2021-10-02] MEDS: SODIUM CHLORIDE 0.9% IV 250 ML 30 ML IV CONT (09:20)
--- NOTE | 2021-10-02 10:00 | WPDGICN ---
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 because normally has dark stools but here also with n/v egd in am to check for ulcers, avm, etc she already had colonoscopy and previous egd- in the past suggested to get small bowel capsule endoscopy which she has not done it yet if egd tomorrow without major findings then will arrange one as outpatient continue with protonix iv (normally she is taking ppi at home) (2) Acute on chronic blood loss anemia: Code(s): D62 - Acute posthemorrhagic anemia Status: Acute Assessment and Plan: s/p blood transfusion monitor for signs of bleeding (3) UTI (urinary tract infection): Code(s): N39.0 - Urinary tract infection, site not specified Status: Acute Assessment and Plan: on abx (4) Congestive heart failure: Code(s): I50.9 - Heart failure, unspecified Status: Chronic Assessment and Plan: on treatment (5) Chronic hypoxemic respiratory failure: Code(s): J96.11 - Chronic respiratory failure with hypoxia Status: Acute Assessment and Plan: chronic (6) Obstructive sleep apnea: Code(s): G47.33 - Obstructive sleep apnea (adult) (pediatric) Status: Acute GI Consult Note Consult date/time: 10/02/21 10:00 Reason for consult: acute on chronic blood loss anemia, gib HPI: Maura Hill is a 61 year old female with history of COPD and chronic respiratory failure using oxygen at home, chronic iron deficiency anemia (hb ~ 8) with previous evaluation 06/[address] Wilkerson with EGD that showed non-bleeding gastric ulcers and colonoscopy only hemorrhoids, repeat EGD in March of 2021 showed erosive gastritis and finally another EGD when I saw her last that showed mild-moderate erosive gastritis without signs of recent bleeding after she was admitted with recurrent anemia, also evaluated by hematology. She has been taking iron pills since and says that stools normally dark. She is here with new onset of nausea and vomiting after she got flu shot, denies hematemesis, also loose stools dark in color as usual, feeling lightheaded and more tired than usual. Hb was 4.3, lactic acid 5.4, BNP 5160, BUN 60 (normally 20's), dirty urine. She was given Zofran, Protonix, Rocephin, Lasix and blood transfusion, then admitted to ICU. Chest x-ray reviewed and cardiomegaly with interstitial edema. Review of Systems Constitutional: Constitutional: Reports fatigue Eyes: Eyes: Denies blurry vision ENT: Reports Normal hearing present Cardiovascular: Cardiovascular: Denies chest pain Respiratory: Respiratory: Reports dyspnea on exertion Gastrointestinal: Gastrointestinal: Reports nausea and Reports vomiting Genitourinary: Genitourinary: Denies hematuria Musculoskeletal: Musculoskeletal: Denies neck pain Integumentary/Breasts: Skin/Breast: Denies dry skin Neurologic: Reports system reviewed and no additional complaints, except as documented Psychiatric: Psychiatric: Reports no additional psychiatric complaints [facility] Past Medical History Medical History (Updated 10/02/21 @ 10:08 by Zeke Tirado MD) Acute on chronic blood loss anemia Adrenal mass Anemia Chronic hypoxemic respiratory failure Congestive heart failure COPD (chronic obstructive pulmonary disease) Diabetes mellitus HTN (hypertension), malignant Hyperlipidemia Hypertension Lung nodule 11 mm Melena Tobacco abuse 35 pack year, quit Aug 2019. Surgical History Surgical History H/O section x3 H/O colonoscopy with polypectomy H/O esophagogastroduodenoscopy History of appendectomy Hx of cholecystectomy Family History Family History (Reviewed 10/01/21 @ 23:26
--- NOTE | 2021-10-02 10:18 | WPDCNINT ---
Assessment and Plan Assessment and plan (1) GI bleed: Code(s): K92.2 - Gastrointestinal hemorrhage, unspecified Status: Acute Assessment and Plan: NPO Patient was transfused 3 units of PRBC and will be transfused 1 more unit at this time Continue serial hemoglobin monitoring IV PPI q.12 hours GI consulted and plan for EGD tomorrow (2) UTI (urinary tract infection): Code(s): N39.0 - Urinary tract infection, site not specified Status: Acute Assessment and Plan: Urine culture and blood culture Lactic acid level is improving IV Rocephin (3) Congestive heart failure: Code(s): I50.9 - Heart failure, unspecified Status: Chronic Assessment and Plan: She did get Lasix in the ER will currently hold further Lasix at this time due to soft blood pressure and anemia from GI bleed (4) Anemia: Code(s): D64.9 - Anemia, unspecified Status: Acute Assessment and Plan: Secondary to GI bleed but may have element of chronic anemia See above (5) Erosive gastritis: Code(s): K29.60 - Other gastritis without bleeding Status: Acute Assessment and Plan: On last EGD. Patient is on PPI at home Continue IV PPI at this time (6) Acute respiratory failure: Code(s): J96.00 - Acute respiratory failure, unspecified whether with hypoxia or hypercapnia Status: Acute Assessment and Plan: Chest x-ray show pulmonary edema patient does have history of congestive heart failure She did get Lasix in ED Currently on BiPAP and saturating adequately on 45% FiO2 ABGs reviewed and shows no hypercarbia I will give patient a break from BiPAP at this time and try to nasal cannula and see how she does BiPAP p.r.n. and at nightly basis as patient does have sleep apnea Currently denies any nausea vomiting at this time (7) SAMARA (acute kidney injury): Code(s): N17.9 - Acute kidney failure, unspecified Status: Acute Assessment and Plan: Likely prerenal from blood loss and anemia Recent CT abdomen pelvis did not show any stone or obstruction Monitor urine output electrolytes and creatinine Additional Plan DVT prophylaxis -SCDs Stress ulcer prophylaxis -on IV PPI Nutrition -NPO Code Status - Full Code Total Critical Care Time - 35 minutes Due to a high probability of clinically significant, life threatening deterioration, the patient required my highest level of preparedness to intervene emergently and I personally spent this critical care time directly and personally managing the patient. This critical care time included obtaining a history; examining the patient; pulse oximetry; ordering and review of studies; arranging urgent treatment with development of a management plan; evaluation of patient's response to treatment; frequent reassessment; and discussions with other providers. It was exclusive of separately billable procedures and treating other patients and teaching time. Please see Assessment and Plan section and the rest of the note for further information on patient assessment and treatment [facility] Consult Note Consult date: 10/02/21 HPI: Maura Hill is a 61 year old female who has a history of CHF, chronic respiratory failure on 4-5 L at home due to COPD. The patient came to the emergency room to be evaluated for diarrhea. The patient stated that she had dark stools. She states that she had flu shot on Monday and started having some chills and then diarrhea next day. She states her stools have been dark due to medication that she takes. She denies any nausea vomiting. She denied any fever chest pain abdominal pain. History was limited as patient was on BiPAP. Limited review of system was obtained as patient was BiPAP but she did admit to having swelling in her legs and denied any dysuria but did complain of frequency. In ED patient's H&H is 4.3 and 14.9 when her hemoglobin is typically around 8. Lactic acid
[2021-10-02 14:43] LABS: Creatinine Urine 59.9 mg/dL; Sodium Urine Random 7 meq/L
[2021-10-02 15:20] LABS: Hematocrit 23.5 % (37.0-47.0); Hemoglobin 7.3 g/dL (12.0-15.0)
[2021-10-02 18:01] LABS: Hematocrit 23.8 % (37.0-47.0); Hemoglobin 7.4 g/dL (12.0-15.0)
[2021-10-03] VITALS (30 sets, daily range): BP systolic 92–108; BP diastolic 39–68; PULSE 67–86; RESP 10–20; TEMP 36.4–36.9; O2SAT 90–100
[2021-10-03 05:22] LABS: Hematocrit 22.9 % (37.0-47.0); Hemoglobin 7.1 g/dL (12.0-15.0); Mean Corpuscular Hemoglobin 24.5 pg (26-34); Mean Platelet Volume 10.4 fl (7.4-10.4); Platelet Count Result 169 k/mm3 (150-375); Red Cell Distribution Width 20.8 % (11.5-14.5); White Blood Count 9.7 K/mm3 (4.5-10.0)
[2021-10-03 05:39] LABS: Alanine Aminotransferase 11 U/L (4-35); Albumin Level 3.2 g/dL (3.5-5.1); Alkaline Phosphatase 84 U/L (38-126); Anion Gap 10 mmol/L (8-16); Aspartate Amino Transferase 33 U/L (14-36); Bilirubin,Total 0.6 mg/dL (0.2-1.3); Blood Urea Nitrogen 50 mg/dL (7-17); Calcium 8.6 mg/dL (8.4-10.2); Carbon Dioxide 23 mmol/L (22-30); Chloride 108 mmol/L (98-107); Estimated CRCL calculation 62 ml/min; Estimated Glomerular Filt Rate 55; Glucose 123 mg/dL (65-110); Magnesium 2.4 mg/dL (1.6-2.3); Potassium 3.7 mmol/L (3.4-5.0); Sodium 141 mmol/L (137-145)
[2021-10-03 08:20] LABS: Glucose Point of Care 119 mg/dl (65-105)
[2021-10-03] MEDS: LACTATED RINGERS 1,000 ML 30 ML IV CONT (08:32)
--- NOTE | 2021-10-03 08:34 | SUR.OPER ---
Pre-oping patient in Endoscopy room 3.
[2021-10-03] MEDS: BENZOCAINE (*SP) 60 ML SPRAY CAN (HURRICAINE) 1 SPRAY MUCOUS MEM (08:43)
--- NOTE | 2021-10-03 09:04 | WPDANESEPPF ---
Anes - Initial Pre Proc Eval Procedure: Operation Date: 10/03/21 08:30 Proposed Procedures p Esophagogastroduodenoscopy - Zeke Tirado MD Date/Time: 10/03/21 09:04 Surgeon: Harriet Pereira MD Pre Op Diagnosis: Severe anemia, CHF, Hypotension, Chronic Respirato Patient Data Age: 61 Gender: F Height: 1.73 m Weight: 134.6 kg Last Vital Signs Temp 36.6 C 10/03/21 08:22 Pulse 74 10/03/21 08:57 Resp 18 10/03/21 08:57 BP 105/56 L 10/03/21 08:57 Pulse Ox 94 10/03/21 08:57 Allergies Allergy/AdvReac Type Severity Reaction Status Date / Time Penicillins Allergy Hives Verified 10/03/21 08:15 Sulfa (Sulfonamide Allergy Itching Verified 10/03/21 08:15 Antibiotics) Home Medications Medication Instructions Recorded Confirmed Type aspirin [Aspir-81] 81 mg PO DAILY 09/08/19 10/02/21 History atorvastatin 40 mg PO DAILY 09/08/19 10/02/21 History ezetimibe 10 mg PO DAILY 09/08/19 10/02/21 History polysaccharide iron complex 150 mg PO BID 07/11/20 10/02/21 History [Poly-Iron] budesonide-formoterol [Symbicort] 2 puff INHALATION Q12HRT #10.2 g 02/09/21 10/02/21 Rx pantoprazole 40 mg PO QAM #30 tablet 02/09/21 10/02/21 Rx metformin 500 mg PO DAILY 04/07/21 10/02/21 History furosemide [Lasix] 80 mg PO BID #60 tablet 07/23/21 10/02/21 Rx gabapentin 100 mg PO TID #90 cap 07/23/21 10/02/21 Rx albuterol sulfate 90 mcg/actuation 1 - 2 inh INHALATION Q4-6H PRN 08/16/21 10/02/21 Rx aerosol inhaler #8.5 g losartan 50 mg tablet 50 mg PO DAILY #30 tablet 08/17/21 10/02/21 Rx amlodipine [Norvasc] 10 mg PO DAILY 10/02/21 10/02/21 History umeclidinium-vilanterol [Anoro 1 inh INHALATION DAILY 10/02/21 10/02/21 History Ellipta] Laboratory Tests 10/01/21 10/02/21 10/02/21 13:57 13:58 14:56 WBC RBC Hgb 7.3 g/dL L g/dL (12.0-15.0) Hct 23.5 % L % (37.0-47.0) MCV MCH MCHC RDW Plt Count MPV Sodium Potassium Chloride Carbon Dioxide Anion Gap BUN Creatinine Estim Creat Clear Calc Estimated GFR Glucose POC Capillary Glucose Calcium Magnesium Total Bilirubin AST ALT Alkaline Phosphatase Total Protein Albumin Ur Random Sodium 7 meq/L meq/L Urine Creatinine 59.9 mg/dL mg/dL Blood Type B Positive Antibody Screen Negative Crossmatch See Detail 10/02/21 10/03/21 10/03/21 17:50 05:10 05:10 WBC 9.7 K/mm3 K/mm3 (4.5-10.0) RBC 2.90 M/mm3 L M/mm3 (4.2-5.4) Hgb 7.4 g/dL L g/dL 7.1 g/dL L g/dL (12.0-15.0) (12.0-15.0) Hct 23.8 % L % 22.9 % L % (37.0-47.0) (37.0-47.0) MCV 79.0 fl L fl (80-100) MCH 24.5 pg L pg (26-34) MCHC 31.0 g/dl L g/dl (32-36) RDW 20.8 % H % (11.5-14.5) Plt Count 169 k/mm3 k/mm3 (150-375) MPV 10.4 fl fl (7.4-10.4) Sodium 141 mmol/L mmol/L (137-145) Potassium 3.7 mmol/L mmol/L (3.4-5.0) Chloride 108 mmol/L H mmol/L (98-107) Carbon Dioxide 23 mmol/L mmol/L (22-30) Anion Gap 10 mmol/L mmol/L (8-16) BUN 50 mg/dL H D mg/dL (7-17) Creatinine 1.20 mg/dL H mg/dL (0.7-1.0) Estim Creat Clear Calc 62 ml/min ml/min Estimated GFR 55 L (59 - ) Glucose 123 mg/dL H mg/dL (65-110) POC Capillary Glucose Calcium 8.6 mg/dL mg/dL (8.4-10.2) Magnesium 2.4 mg/dL H mg/dL (1.6-2.3) Total Bilirubin 0.6 mg/dL mg/dL (0.2-1.3) AST 33 U/L U/L (14-36) ALT 11 U/L U/L (4-35) Alkaline Phosphatase
--- NOTE | 2021-10-03 09:36 | WPDINTPN ---
Progress Note: A&P Assessment and Plan (1) GI bleed: Code(s): K92.2 - Gastrointestinal hemorrhage, unspecified Status: Acute Assessment and Plan: NPO Patient was transfused 4 units of PRBC in 1st 24 hours hemoglobin now appears to be stable Continue serial hemoglobin monitoring IV PPI q.12 hours GI consulted and patient is going for EGD this morning (2) UTI (urinary tract infection): Code(s): N39.0 - Urinary tract infection, site not specified Status: Acute Assessment and Plan: Urine culture and blood culture continue IV Rocephin (3) Congestive heart failure: Code(s): I50.9 - Heart failure, unspecified Status: Chronic Assessment and Plan: She did get Lasix in the ER will currently hold further Lasix at this time due to soft blood pressure and anemia from GI bleed (4) Anemia: Code(s): D64.9 - Anemia, unspecified Status: Acute Assessment and Plan: Secondary to GI bleed but may have element of chronic anemia See above (5) Erosive gastritis: Code(s): K29.60 - Other gastritis without bleeding Status: Acute Assessment and Plan: On last EGD. Patient is on PPI at home Continue IV PPI at this time (6) Acute respiratory failure: Code(s): J96.00 - Acute respiratory failure, unspecified whether with hypoxia or hypercapnia Status: Acute Assessment and Plan: Chest x-ray show pulmonary edema patient does have history of congestive heart failure She did get Lasix in ED improved and currently on 5 L nasal cannula which is her home oxygen requirement ABGs reviewed and shows no hypercarbia continue CPAP at night as patient is supposed to be on a CPAP for her sleep apnea (7) SAMARA (acute kidney injury): Code(s): N17.9 - Acute kidney failure, unspecified Status: Acute Assessment and Plan: Likely prerenal from blood loss and anemia Recent CT abdomen pelvis did not show any stone or obstruction Monitor urine output electrolytes and creatinine creatinine seems to be stable although slightly elevated. Was not given fluids due to CHF and pulmonary edema Additional Plan DVT prophylaxis -SCDs Stress ulcer prophylaxis -on IV PPI Nutrition - advance diet based on her EGD results Code Status - Full Code PT OT, up in chair, incentive spirometry Will transfer out of ICU depending on EGD results Subjective Date/time seen: 10/03/21 09:36 patient states but she is feeling better as compared to yesterday. Denies any new complaints. She slept well with the BiPAP on. She denies any shortness of breath now on nasal cannula. No chest pain abdominal pain fever cough. She had 1 bowel movement which was dark and black. No nausea vomiting. All other systems were reviewed and were negative Review of Systems Review of Systems: All systems reviewed & are unremarkable except as noted in HPI and below ( subjective) Exam Narrative: General: Pt is alert awake and in NAD. Lungs/Chest: Trachea central decreased BS B/L bases, No crackles or wheezing. Cardiac: RRR. Normal S1 S2. No murmurs Circulation: Both feet are warm Abdomen: Normal bowel sounds. Obese. Soft. NT. ND. Extremities: No clubbing, cyanosis or edema. Warm : Pope in place Neurologic: Follows commands. Moves all 4 extremities PERRL AO x 3 Skin: No Rash Objective Data Vital Signs Vital Signs: Vital Signs - 24 hr 10/02/21 09:45 10/02/21 09:55 10/02/21 10:00 Temperature 36.5 C 36.4 C 36.3 C L Pulse Rate 69 66 68 Respiratory Rate 9 L 12 11 L Blood Pressure 95/68 L 97/58 L 91/55 L Pulse Oximetry 94 93 91 10/02/21 10:04 10/02/21 11:04 10/02/21 12:00 Temperature 36.3 C L 36.6 C 36.5 C Pulse Rate 69 71 74 Respiratory Rate 11 L 11 L 12 Blood Pressure 85/55 L 88/56 L 92/52 L Pulse Oximetry 92 94 92 10/02/21 13:04 10/02/21 14:00 10/02/21 16:00 Temperature 36.5 C 36.9 C Pulse Rate 72 71 73 Respiratory Rate 10 L 16 14 Blood P
[2021-10-03] MEDS: ONDANSETRON INJ 4 MG/2 ML VIAL IV PUSH (09:46)
[2021-10-03] MEDS: PHYTONADIONE INJ 10 MG/ML AMP IM (09:46)
[2021-10-03] MEDS: PANTOPRAZOLE 40 MG TABLET PO ×2 (10:04→21:10)
[2021-10-03 10:59] LABS: Hematocrit 24.1 % (37.0-47.0); Hemoglobin 7.2 g/dL (12.0-15.0)
[2021-10-03 16:01] LABS: Hematocrit 22.1 % (37.0-47.0)
[2021-10-03 16:12] LABS: Hemoglobin 6.8 g/dL (12.0-15.0)
[2021-10-03] MEDS: SODIUM CHLORIDE 0.9% IV 250 ML 30 ML IV CONT (16:41)
[2021-10-03 22:14] LABS: Hematocrit 26.1 % (37.0-47.0)
[2021-10-04] VITALS (17 sets, daily range): BP systolic 97–109; BP diastolic 59–69; PULSE 63–98; RESP 10–32; TEMP 36.4–37.1; O2SAT 88–100
[2021-10-04 05:52] LABS: Hematocrit 25.4 % (37.0-47.0); Hemoglobin 7.7 g/dL (12.0-15.0); Immature Platelet Fraction Pct 7.5 % (0.9-11.2); Mean Corpuscular HGB Conc 30.3 g/dl (32-36); Mean Corpuscular Hemoglobin 24.5 pg (26-34); Mean Corpuscular Volume 80.9 fl (80-100); Mean Platelet Volume 11.6 fl (7.4-10.4); Platelet Count Result 171 k/mm3 (150-375); Red Blood Count 3.14 M/mm3 (4.2-5.4); Red Cell Distribution Width 21.2 % (11.5-14.5); White Blood Count 8.5 K/mm3 (4.5-10.0)
[2021-10-04 06:08] LABS: Alanine Aminotransferase 12 U/L (4-35); Albumin Level 3.3 g/dL (3.5-5.1); Alkaline Phosphatase 94 U/L (38-126); Anion Gap 6 mmol/L (8-16); Aspartate Amino Transferase 32 U/L (14-36); Bilirubin,Total 0.4 mg/dL (0.2-1.3); Blood Urea Nitrogen 37 mg/dL (7-17); Calcium 8.7 mg/dL (8.4-10.2); Carbon Dioxide 24 mmol/L (22-30); Chloride 105 mmol/L (98-107); Estimated CRCL calculation 62 ml/min; Estimated Glomerular Filt Rate 55; Glucose 140 mg/dL (65-110); Magnesium 2.5 mg/dL (1.6-2.3); Potassium 3.8 mmol/L (3.4-5.0); Sodium 135 mmol/L (137-145)
[2021-10-04] MEDS: PANTOPRAZOLE 40 MG TABLET PO ×2 (08:21→21:32)
[2021-10-04 08:24] LABS: Glucose Point of Care 116 mg/dl (65-105)
--- NOTE | 2021-10-04 09:25 | WPDANESPN ---
Anes - Prog Note Post-Op Date/Time: 10/04/21 09:25 Cardiovascular status: normal Respiratory status: normal Airway patency: baseline Mental status: baseline Post-Op hydration status: normal Vital Signs: Last Vital Signs Temp 37.1 C 10/04/21 04:00 Pulse 67 10/04/21 08:00 Resp 11 L 10/04/21 08:00 BP 97/69 L 10/04/21 08:00 Pulse Ox 90 10/04/21 08:00 Pain Score (VAS): 0 I/O: Intake & Output 10/03/21 10/04/21 10/04/21 23:59 07:59 15:59 Intake Total 520 120 Output Total 850 950 Balance -330 -830 Laboratory Tests 10/04/21 04:48 10/04/21 04:48 10/01/21 10/03/21 10/03/21 13:57 10:35 15:52 WBC RBC Hgb 7.2 L 6.8 L* Hct 24.1 L 22.1 L MCV MCH MCHC RDW Plt Count MPV % Immature Plt Fraction Sodium Potassium Chloride Carbon Dioxide Anion Gap BUN Creatinine Estim Creat Clear Calc Estimated GFR Glucose POC Capillary Glucose Calcium Magnesium Total Bilirubin AST ALT Alkaline Phosphatase Total Protein Albumin Blood Type B Positive Antibody Screen Negative Crossmatch See Detail 10/03/21 10/04/21 10/04/21 21:47 04:48 04:48 WBC 8.5 RBC 3.14 L Hgb 8.0 L 7.7 L Hct 26.1 L 25.4 L MCV 80.9 MCH 24.5 L MCHC 30.3 L RDW 21.2 H Plt Count 171 MPV 11.6 H % Immature Plt Fraction 7.5 Sodium 135 L Potassium 3.8 Chloride 105 Carbon Dioxide 24 Anion Gap 6 L BUN 37 H D Creatinine 1.20 H Estim Creat Clear Calc 62 Estimated GFR 55 L Glucose 140 H POC Capillary Glucose Calcium 8.7 Magnesium 2.5 H Total Bilirubin 0.4 AST 32 ALT 12 Alkaline Phosphatase 94 Total Protein 6.0 L Albumin 3.3 L Blood Type Antibody Screen Crossmatch 10/04/21 08:18 WBC RBC Hgb Hct MCV MCH MCHC RDW Plt Count MPV % Immature Plt Fraction Sodium Potassium Chloride Carbon Dioxide Anion Gap BUN Creatinine Estim Creat Clear Calc Estimated GFR Glucose POC Capillary Glucose 116 H Calcium Magnesium Total Bilirubin AST ALT Alkaline Phosphatase Total Protein Albumin Blood Type Antibody Screen Crossmatch Post-procedural complaints: none Patient Feedback: Patient satisfied with anesthetic care.
--- NOTE | 2021-10-04 09:44 | WPDINTPN ---
Progress Note: A&P Assessment and Plan (1) GI bleed: Code(s): K92.2 - Gastrointestinal hemorrhage, unspecified Status: Acute Assessment and Plan: Patient was transfused 4 units of PRBC in 1st 24 hours She had EGD yesterday which showed gastritis and no obvious bleeding Hemoglobin now appears to be stable Continue less frequent monitoring IV PPI q.12 hours Plan for small-bowel follow-through today (2) UTI (urinary tract infection): Code(s): N39.0 - Urinary tract infection, site not specified Status: Acute Assessment and Plan: Urine culture and blood culture have been negative Continue IV Rocephin (3) Congestive heart failure: Code(s): I50.9 - Heart failure, unspecified Status: Chronic Assessment and Plan: She did get Lasix in the ER will currently hold further Lasix at this time due to soft blood pressure and anemia from GI bleed (4) Anemia: Code(s): D64.9 - Anemia, unspecified Status: Acute Assessment and Plan: Secondary to GI bleed but may have element of chronic anemia See above (5) Erosive gastritis: Code(s): K29.60 - Other gastritis without bleeding Status: Acute Assessment and Plan: On last EGD and this EGD patient had gastritis. Patient is on PPI at home Continue IV PPI at this time while inpatient (6) Acute respiratory failure: Code(s): J96.00 - Acute respiratory failure, unspecified whether with hypoxia or hypercapnia Status: Acute Assessment and Plan: Chest x-ray show pulmonary edema on presentation patient does have history of congestive heart failure She did get Lasix in ED. Improved and currently on 5 L nasal cannula which is her home oxygen requirement ABGs reviewed and shows no hypercarbia Continue CPAP at night as patient is supposed to be on a CPAP for her sleep apnea (7) SAMARA (acute kidney injury): Code(s): N17.9 - Acute kidney failure, unspecified Status: Acute Assessment and Plan: Likely prerenal from blood loss and anemia Recent CT abdomen pelvis did not show any stone or obstruction Monitor urine output electrolytes and creatinine creatinine seems to be stable although slightly elevated. she was not given fluids due to CHF and pulmonary edema but did get blood transfusion urine output has improved monitor Additional Plan DVT prophylaxis - SCDs Stress ulcer prophylaxis - on PPI Nutrition - resume diet after small-bowel follow-thro Code Status - Full Code PT OT incentive spirometry up in chair transfer out of ICU today Subjective Date/time seen: 10/04/21 she denies any complaints this morning. She slept well and wore BiPAP overnight. She had no bowel movements overnight. No nausea vomiting chest pain shortness of breath cough abdominal pain or headache. all other systems w were reviewed and were negative. Urine output is adequate. She is afebrile. Sinus rhythm on telemetry. Review of Systems Review of Systems: All systems reviewed & are unremarkable except as noted in HPI and below (Subjective) Exam Narrative: General: Pt is alert awake and in NAD. Lungs/Chest: Trachea central decreased BS B/L bases, No crackles or wheezing. Cardiac: RRR. Normal S1 S2. No murmurs Circulation: Both feet are warm Abdomen: Normal bowel sounds. Obese. Soft. NT. ND. Extremities: No clubbing, cyanosis or edema. Warm : Pope in place Neurologic: Follows commands. Moves all 4 extremities PERRL AO x 3 Skin: No Rash Objective Data Vital Signs Vital Signs: Vital Signs - 24 hr 10/03/21 10:00 10/03/21 10:26 10/03/21 12:00 Temperature 36.4 C L Pulse Rate 77 81 Respiratory Rate 12 12 Blood Pressure 93/55 L 97/39 L Pulse Oximetry 90 91 90 10/03/21 14:00 10/03/21 15:58 10/03/21 16:00 Temperature Pulse Rate 81 76 Respiratory Rate 13 Blood Pressure 99/56 L Pulse Oximetry 92 90 10/03/21 16:39 10/03/21 17:29 10/03/21 17
[2021-10-04 10:25] LABS: Hematocrit 28.5 % (37.0-47.0); Hemoglobin 8.5 g/dL (12.0-15.0)
[2021-10-04 12:07] LABS: Glucose Point of Care 116 mg/dl (65-105)
--- NOTE | 2021-10-04 17:18 | WPDGIPROGNO ---
Progress Note: A&P Assessment and Plan (1) Acute on chronic blood loss anemia: Code(s): D62 - Acute posthemorrhagic anemia Status: Acute Assessment and Plan: egd yesterday with only mild gastritis, no signs of upper gib hb responded to blood transfusion tolerating diet SBFT pending, will also order capsule endoscopy as outpatient to assess if any SB source of gib (colonoscopy in the past negative) will need follow-up with hematology (2) GI bleed: Code(s): K92.2 - Gastrointestinal hemorrhage, unspecified Status: Acute Assessment and Plan: did not find GIB yesterday (3) Acute on chronic respiratory failure with hypoxemia: Code(s): J96.21 - Acute and chronic respiratory failure with hypoxia Status: Resolved Assessment and Plan: using home oxygen Subjective Date/time seen: 10/04/21 17:18 Interval history: doing well, no report of BM and she is feeling stronger today. Just completed SBFT Review of Systems Review of Systems: All systems reviewed & are unremarkable except as noted in HPI and below Exam Const: General: comfortable and no acute distress HENMT: General nose exam: Normal nares present Eyes: General: appearance normal, both eyes and all related structures Neck: Neck: no JVD Resp: Auscultation: clear to auscultation bilaterally Cardio: Rate: regular rate Rhythm: regular rhythm GI: Inspection: non-distended GI Palp: Yes Soft to palpation and No Guarding due to palpation present (GI) Auscultation: normal bowel sounds Skin: General skin exam: normal color Neuro: General: gait normal Speech: normal speech Extrem: General: normal to inspection Psych: Mental Status: mental status grossly normal Objective Data Vital Signs Vital Signs: Vital Signs - 24 hr 10/03/21 17:29 10/03/21 17:35 10/03/21 17:40 Temperature 98.0 F 98.0 F 98.0 F Pulse Rate 78 77 77 Respiratory Rate 20 13 11 L Blood Pressure 94/58 L 99/56 L 100/67 Pulse Oximetry 92 97 92 10/03/21 17:45 10/03/21 18:00 10/03/21 18:45 Temperature 97.9 F 98.0 F Pulse Rate 79 86 82 Respiratory Rate 12 14 11 L Blood Pressure 100/61 95/61 L 103/67 Pulse Oximetry 94 90 91 10/03/21 19:45 10/03/21 20:00 10/03/21 21:52 Temperature 98.3 F 98.3 F Pulse Rate 82 80 74 Respiratory Rate 14 13 12 Blood Pressure 97/68 L 98/63 L 101/60 Pulse Oximetry 95 93 96 10/03/21 23:32 10/03/21 23:35 10/04/21 00:00 Temperature 98 F Pulse Rate 72 77 Respiratory Rate 14 11 L Blood Pressure 100/61 Pulse Oximetry 100 99 98 10/04/21 01:53 10/04/21 02:40 10/04/21 03:23 Temperature Pulse Rate 72 72 Respiratory Rate 13 14 Blood Pressure 100/61 Pulse Oximetry 99 99 99 10/04/21 04:00 10/04/21 05:40 10/04/21 06:00 Temperature 98.7 F Pulse Rate 70 72 70 Respiratory Rate 12 14 13 Blood Pressure 105/65 104/66 Pulse Oximetry 100 99 100 10/04/21 08:00 10/04/21 09:28 10/04/21 09:59 Temperature Pulse Rate 67 67 73 Respiratory Rate 11 L 11 L Blood Pressure 97/69 L Pulse Oximetry 90 90 10/04/21 10:00 10/04/21 10:43 10/04/21 12:00 Temperature 98.2 F Pulse Rate 74 78 71 Respiratory Rate 12 14 10 L Blood Pressure 102/62 97/61 L Pulse Oximetry 91 88 L 97 10/04/21 16:00 Temperature 98.3 F Pulse Rate 63 Respiratory Rate 10 L Blood Pressure 102/61 Pulse Oximetry 96 Intake/Output Intake/Output: Intake & Output 10/01/21 10/02/21 10/03/21 10/04/21 23:59 23:59 23:59 23:59 Intake Total 800 1530 740 120 Output Total 450 1800 1800 950 Balance 449 -770 -1060 -830 Meds/Results Medications: Active Medications Generic Name Dose Route Start Last Admin Trade Name Freq PRN Reason Stop Dose Admin Dextrose 12.5 gm 10/04/21 07:38 Dextrose 50% 25 Gm/50 Ml Syringe IV PUSH PRN PRN Hypoglycemia Protocol Glucagon 1 mg 10/04/21 07:38 Glucagon For Inj 1 Mg Vial IM PRN PRN Hypoglycemia Protocol Glucose 15 gm
[2021-10-04 17:22] LABS: Glucose Point of Care 117 mg/dl (65-105)
[2021-10-04 17:39] LABS: Hematocrit 26.8 % (37.0-47.0); Hemoglobin 8.1 g/dL (12.0-15.0)
[2021-10-04 21:22] LABS: Glucose Point of Care 130 mg/dl (65-105)
--- NOTE | 2021-10-04 22:30 | PC.NURSE ---
This patient, Maura Hill, was transferred to [facility] on 10/04/21 at 2230. Personal belongings sent with patient. Report given to accepting RN. Appropriate documentation sent with patient.
[2021-10-05] VITALS (11 sets, daily range): BP systolic 102–119; BP diastolic 55–73; PULSE 69–87; RESP 14–20; TEMP 35.9–37; O2SAT 82–100
--- NOTE | 2021-10-05 02:30 | PC.NURSE ---
Pt transferred from ICU to room 321-2 . Pt in no acute distress. Encouraged to inform nurse if need assist with anything and plan of care discussed, verbalize understanding. Will continue to monitor.
[2021-10-05 07:05] LABS: Hemoglobin 7.9 g/dL (12.0-15.0); Mean Corpuscular HGB Conc 28.2 g/dl (32-36); Mean Corpuscular Hemoglobin 23.9 pg (26-34); Mean Corpuscular Volume 84.6 fl (80-100); Mean Platelet Volume 10.4 fl (7.4-10.4); Platelet Count Result 150 k/mm3 (150-375); Red Blood Count 3.31 M/mm3 (4.2-5.4); White Blood Count 8.8 K/mm3 (4.5-10.0)
[2021-10-05 07:28] LABS: Alanine Aminotransferase 9 U/L (4-35); Albumin Level 3.4 g/dL (3.5-5.1); Alkaline Phosphatase 95 U/L (38-126); Anion Gap 9 mmol/L (8-16); Aspartate Amino Transferase 33 U/L (14-36); Bilirubin,Total 0.6 mg/dL (0.2-1.3); Blood Urea Nitrogen 28 mg/dL (7-17); Calcium 8.6 mg/dL (8.4-10.2); Carbon Dioxide 22 mmol/L (22-30); Chloride 104 mmol/L (98-107); Estimated CRCL calculation 73 ml/min; Estimated Glomerular Filt Rate > 60; Glucose 116 mg/dL (65-110); Magnesium 2.6 mg/dL (1.6-2.3); Potassium 3.7 mmol/L (3.4-5.0); Sodium 135 mmol/L (137-145)
--- NOTE | 2021-10-05 08:06 | PM.IMPN ---
Progress Note: A&P Assessment and Plan (1) GI bleed: Code(s): K92.2 - Gastrointestinal hemorrhage, unspecified Status: Acute Assessment and Plan: Severe anemia of unknown origin. Hemoglobin steady at 8 after the patient was transfused 4 units of PRBC in 1st 24 hours She had EGD on 10/03 which showed gastritis and no obvious source of bleeding. SBFT was also unremarkable. Hemoglobin now appears to be stable. Continue IV PPI q.12 hours. Plan for capsule endoscopy per GI. (2) UTI (urinary tract infection): Code(s): N39.0 - Urinary tract infection, site not specified Status: Acute Assessment and Plan: Urine culture and blood culture have been negative Continue IV Rocephin (3) Congestive heart failure: Code(s): I50.9 - Heart failure, unspecified Status: Chronic Assessment and Plan: Patient carries a diagnosis of congestive heart failure. She did get Lasix in the ER will currently hold further Lasix at this time due to soft blood pressure and anemia from GI bleed (4) Anemia: Code(s): D64.9 - Anemia, unspecified Status: Acute Assessment and Plan: Secondary to GI bleed but may have element of chronic anemia. Send iron panel, B12 and folate levels. See above (5) Erosive gastritis: Code(s): K29.60 - Other gastritis without bleeding Status: Acute Assessment and Plan: On last EGD and this EGD patient had gastritis. Patient is on chronic PPI at home Continue IV PPI at this time while inpatient (6) Acute respiratory failure: Code(s): J96.00 - Acute respiratory failure, unspecified whether with hypoxia or hypercapnia Status: Acute Assessment and Plan: Chest x-ray show pulmonary edema on presentation patient does have history of congestive heart failure She did get Lasix in ED. Improved and currently on 5 L nasal cannula which is her home oxygen requirement ABGs reviewed and shows no hypercarbia Continue CPAP at night as patient is supposed to be on a CPAP for her sleep apnea (7) SAMARA (acute kidney injury): Code(s): N17.9 - Acute kidney failure, unspecified Status: Acute Assessment and Plan: Acute nonoliguric kidney injury, with creatinine peaking at 1.2. Renal function is slowly improving with creatinine down to 1 today. Baseline creatinine 0.8-0.9 as of June 2021 Likely prerenal from blood loss and anemia Recent CT abdomen pelvis did not show any stone or obstruction Monitor urine output electrolytes and creatinine creatinine seems to be stable although slightly elevated. she was not given fluids due to CHF and pulmonary edema but did get blood transfusion urine output has improved monitor Additional Plan DVT prophylaxis - SCDs Stress ulcer prophylaxis - on PPI Nutrition - resume diet after small-bowel follow-thro Code Status - Full Code PT OT incentive spirometry up in chair Patient may need PT as an outpatient. Subjective Date/time seen: Background. This is a 61f with a history of CHF, chronic respiratory failure on 4-5 L at home due to COPD, who was evaluated for nausea vomiting and diarrhea, found to have dark blood coming from her rectum. Patient's H&H was 4.3 and 14.9 when her baseline hemoglobin is usually around 8. The patient is received 4 unitd of PRBCs. Her EGD and small-bowel follow-through were both unremarkable. Patient is currently being considered for a capsule endoscopy as an outpatient. 10/05/21 08:06 S: Patient examined at the bedside. She describes generalized weakness. She is feeling better. Breathing is improving. Sleep is poor due to environmental noise. Appetite is preserved. Review of Systems Review of Systems: All systems reviewed & are unremarkable except as noted in HPI and below (Subjective) ROS unobtainable: Yes unobtainable due to medical condition Constitutional: Constitutional: Reports as per HPI and Reports no additional constitutional complai
[2021-10-05 08:30] LABS: Glucose Point of Care 101 mg/dl (65-105)
[2021-10-05] MEDS: PANTOPRAZOLE 40 MG TABLET PO ×2 (08:56→22:41)
--- NOTE | 2021-10-05 09:34 | PCOTNOTE ---
Attempted to see patient this AM at 09:35, patient kindly declined OT services this date stated, All she did was talk all night, I haven't slept at all, I really want to go back to sleep. Attempted to educate on the benefits of OT patient continued to decline.
[2021-10-05 12:03] LABS: Glucose Point of Care 111 mg/dl (65-105)
--- NOTE | 2021-10-05 12:48 | PC.NURSE ---
On 10/05/21, the student, [ Leisa Juan], provided care and completed [facility] documentation on this patient. I have reviewed the student's documentation and agree with the findings.
--- NOTE | 2021-10-05 13:50 | WPDGIPROGNO ---
Progress Note: A&P Assessment and Plan (1) Acute on chronic blood loss anemia: Code(s): D62 - Acute posthemorrhagic anemia Status: Acute Assessment and Plan: egd only mild gastritis, no signs of upper gib and hb remained stable after blood transfusion, on protonix tolerating diet SBFT was normal but still will also order capsule endoscopy as outpatient to assess if any SB source of gib (colonoscopy in the past negative) because recurrent anemia she also needs to follow-up with hematology no objections to discharge by GI standpoint (2) GI bleed: Code(s): K92.2 - Gastrointestinal hemorrhage, unspecified Status: Acute Assessment and Plan: did not find GIB on protonix (3) Acute on chronic respiratory failure with hypoxemia: Code(s): J96.21 - Acute and chronic respiratory failure with hypoxia Status: Resolved Assessment and Plan: using home oxygen Subjective Date/time seen: 10/05/21 13:50 Interval history: she was moved to regular [facility], slowly getting stronger and feeling better, denies melena. Review of Systems Review of Systems: All systems reviewed & are unremarkable except as noted in HPI and below Exam Const: General: comfortable and no acute distress HENMT: General nose exam: Normal nares present Eyes: General: appearance normal, both eyes and all related structures Neck: Neck: no JVD Resp: Auscultation: clear to auscultation bilaterally Cardio: Rate: regular rate Rhythm: regular rhythm GI: Inspection: non-distended GI Palp: Yes Soft to palpation and No Guarding due to palpation present (GI) Auscultation: normal bowel sounds Skin: General skin exam: normal color Neuro: General: gait normal Speech: normal speech Extrem: General: normal to inspection Psych: Mental Status: mental status grossly normal Objective Data Vital Signs Vital Signs: Vital Signs - 24 hr 10/04/21 16:00 10/04/21 17:24 10/04/21 20:00 Temperature 98.3 F 97.6 F Pulse Rate 63 98 76 Respiratory Rate 10 L 32 H 12 Blood Pressure 102/61 109/68 Pulse Oximetry 96 98 99 10/04/21 22:54 10/05/21 00:00 10/05/21 00:24 Temperature 97.9 F Pulse Rate 80 76 76 Respiratory Rate 20 14 Blood Pressure 102/59 L Pulse Oximetry 91 98 10/05/21 04:00 10/05/21 08:00 10/05/21 08:20 Temperature 98.6 F Pulse Rate 69 70 69 Respiratory Rate 20 20 Blood Pressure 114/73 Pulse Oximetry 95 95 10/05/21 09:30 10/05/21 12:15 Temperature 97.8 F 98.0 F Pulse Rate 81 69 Respiratory Rate 16 20 Blood Pressure 102/55 L 109/61 Pulse Oximetry 82 L 100 Intake/Output Intake/Output: Intake & Output 10/02/21 10/03/21 10/04/21 10/05/21 23:59 23:59 23:59 23:59 Intake Total 1530 617 696 1811 Output Total 1800 1800 1800 550 Balance -[phone] -[phone] -9695 480 Meds/Results Medications: Active Medications Generic Name Dose Route Start Last Admin Trade Name Freq PRN Reason Stop Dose Admin Dextrose 12.5 gm 10/04/21 07:38 Dextrose 50% 25 Gm/50 Ml Syringe IV PUSH PRN PRN Hypoglycemia Protocol Glucagon 1 mg 10/04/21 07:38 Glucagon For Inj 1 Mg Vial IM PRN PRN Hypoglycemia Protocol Glucose 15 gm 10/04/21 07:38 Glucose Oral Gel 15 Gm Of Glucse In 37.5 Gm Tube PO PRN PRN Hypoglycemia Protocol Ceftriaxone Sodium/Dextrose 1 gm in 50 mls @ 100 mls/hr 10/02/21 18:00 10/04/21 18:23 Rocephin 1 Gm/D5w 50 Ml IVPB Infused Q24H EMIR Infusion Dextrose 1,000 mls @ 100 mls/hr 10/04/21 07:38 Dextrose 5% 1,000 Ml IVPB PRN PRN Hypoglycemia Protocol Insulin Aspart 3 - 6 units 10/04/21 16:30 10/05/21 12:25 Insulin Aspart (*Bkc) 100 Units/Ml SUB-Q Not Given ACHS EMIR Protocol Ondansetron HCl 4 mg 10/01/21 17:49 10/03/21 09:46 Ondansetron Inj 4 Mg/2 Ml Vial IV PUSH 4 mg Q4H PRN Administration Nausea Pantoprazole Sodium 40 mg 10/03/21 09:21 10/05/21 08:56 Panto
[2021-10-05 17:13] LABS: Glucose Point of Care 124 mg/dl (65-105)
[2021-10-05 22:48] LABS: Glucose Point of Care 129 mg/dl (65-105)
[2021-10-06] VITALS (20 sets, daily range): BP systolic 109–119; BP diastolic 55–62; PULSE 75–99; RESP 20–24; TEMP 36.3–36.9; O2SAT 84–93
[2021-10-06 06:12] LABS: Glucose Point of Care 121 mg/dl (65-105)
[2021-10-06 07:54] LABS: Glucose Point of Care 115 mg/dl (65-105)
[2021-10-06 08:37] LABS: Hematocrit 25.3 % (37.0-47.0); Hemoglobin 7.6 g/dL (12.0-15.0); Mean Corpuscular Hemoglobin 24.1 pg (26-34); Mean Corpuscular Volume 80.1 fl (80-100); Mean Platelet Volume 10.6 fl (7.4-10.4); Platelet Count Result 177 k/mm3 (150-375); Red Blood Count 3.16 M/mm3 (4.2-5.4); Red Cell Distribution Width 21.5 % (11.5-14.5); White Blood Count 8.5 K/mm3 (4.5-10.0)
[2021-10-06 08:40] LABS: Alanine Aminotransferase 12 U/L (4-35); Albumin Level 3.5 g/dL (3.5-5.1); Alkaline Phosphatase 98 U/L (38-126); Anion Gap 7 mmol/L (8-16); Aspartate Amino Transferase 38 U/L (14-36); Bilirubin,Total 0.5 mg/dL (0.2-1.3); Blood Urea Nitrogen 27 mg/dL (7-17); Calcium 8.8 mg/dL (8.4-10.2); Carbon Dioxide 25 mmol/L (22-30); Chloride 102 mmol/L (98-107); Estimated CRCL calculation 76 ml/min; Estimated Glomerular Filt Rate > 60; Glucose 123 mg/dL (65-110); Magnesium 2.3 mg/dL (1.6-2.3); Sodium 134 mmol/L (137-145)
[2021-10-06] MEDS: UMECLIDINIUM/VILANTEROL 62.5-25 MCG ELLIPTA 1 PUFF INHALATION (09:08)
[2021-10-06] MEDS: FLUTICASONE/SALMETEROL 115-21 MCG INHALER 1 PUFF 2 PUFF INHALATION ×2 (09:08→21:27)
[2021-10-06] MEDS: ATORVASTATIN 40 MG TABLET PO (09:37)
[2021-10-06] MEDS: PANTOPRAZOLE 40 MG TABLET PO ×3 (09:37→21:08)
[2021-10-06] MEDS: POLYSACCHARIDE IRON COMPLEX 150 MG CAPSULE PO ×2 (09:37→16:55)
[2021-10-06] MEDS: EZETIMIBE 10 MG TABLET PO (09:37)
[2021-10-06] MEDS: ASPIRIN 81 MG ENTERIC TABLET PO (09:37)
[2021-10-06] MEDS: GABAPENTIN 100 MG CAPSULE PO ×3 (09:38→16:55)
--- NOTE | 2021-10-06 11:02 | PM.IMPN ---
Progress Note: A&P Assessment and Plan (1) GI bleed: Code(s): K92.2 - Gastrointestinal hemorrhage, unspecified Status: Acute Assessment and Plan: Severe anemia of unknown origin; source is likely GI but has not katya identified so far. Hemoglobin steady at 8 after the patient was transfused 4 units of PRBC in 1st 24 hours She had EGD on 10/03 which showed gastritis and no obvious source of bleeding. SBFT was also unremarkable. Hemoglobin now appears to be stable. Continue PO PPI q.12 hours. Plan for capsule endoscopy per GI. (2) UTI (urinary tract infection): Code(s): N39.0 - Urinary tract infection, site not specified Status: Acute Assessment and Plan: Urine culture and blood culture have been negative Continue IV Rocephin (3) Congestive heart failure: Code(s): I50.9 - Heart failure, unspecified Status: Chronic Assessment and Plan: Patient carries a diagnosis of congestive heart failure. She did get Lasix in the ER ; later Lasix was held due to soft blood pressure and anemia from GI bleed. Patient O2 requirements slightly above baseline; currently reports peripheral edema with mild pretibial edema. Resume p.o. Lasix 80 mg p.o. b.i.d.. (4) Anemia: Code(s): D64.9 - Anemia, unspecified Status: Acute Assessment and Plan: Secondary to GI bleed but may have element of chronic anemia. Iron stores are low. will replete with venofer. B12 and folate levels are within normal range. (5) Erosive gastritis: Code(s): K29.60 - Other gastritis without bleeding Status: Acute Assessment and Plan: On last EGD and this EGD patient had gastritis. Patient is on chronic PPI at home Patient was started on IV PPI at this time while inpatient. Currently transitioned to p.o. PPI. She will be discharged on the same regimen as an outpatient for Lasix 4-6 weeks. (6) Acute respiratory failure: Code(s): J96.00 - Acute respiratory failure, unspecified whether with hypoxia or hypercapnia Status: Acute Assessment and Plan: Chest x-ray show pulmonary edema on presentation patient does have history of congestive heart failure She did get Lasix in ED. Improved and currently on 5 L nasal cannula which is her home oxygen requirement ABGs reviewed and shows no hypercarbia. Encourage compliance with non invasive ventilation. Continue CPAP at night as patient is supposed to be on a CPAP for her sleep apnea (7) SAMRAA (acute kidney injury): Code(s): N17.9 - Acute kidney failure, unspecified Status: Acute Assessment and Plan: Acute nonoliguric kidney injury, with creatinine peaking at 1.2. Renal function is slowly improving with creatinine down to 1 today. Baseline creatinine 0.8-0.9 as of June 2021 Likely prerenal from blood loss and anemia Recent CT abdomen pelvis did not show any stone or obstruction Monitor urine output electrolytes and creatinine creatinine seems to be stable although slightly elevated. she was not given fluids due to CHF and pulmonary edema but did get blood transfusion urine output has improved monitor Additional Plan DVT prophylaxis - SCDs Stress ulcer prophylaxis - on PPI Nutrition - resume diet after small-bowel follow-thro Code Status - Full Code PT OT incentive spirometry up in chair Patient may need PT as an outpatient. Subjective Date/time seen: 10/06/21 11:02 S: Patient examined at the bedside. She describes lower extremity swelling. She is feeling better, but did not wear her BiPAP last night. Breathing is improving. Sleep is poor due to environmental noise. Appetite is preserved. Review of Systems Review of Systems: All systems reviewed & are unremarkable except as noted in HPI and below (Subjective) ROS unobtainable: Yes unobtainable due to medical condition Constitutional: Constitutional: Reports as per HPI and Reports no additional constitutional complaints Eyes: Eyes: Rep
--- NOTE | 2021-10-06 11:40 | PCRCNOTE ---
HOME O2 EVAL COMPLETE, 5 LITERS AT REST AND 6 LITERS WITH ACTIVITY. NO CHANGE IN HOME SETTING. PT'S FAMILY WILL BRING TANK IN FOR DISCHARGE.
[2021-10-06 12:11] LABS: Glucose Point of Care 130 mg/dl (65-105)
--- NOTE | 2021-10-06 12:16 | PCNWS ---
Weekly nutritional screen. Patient is tolerating current diet with adequate intake. No weight loss reported. No nutritional needs at this time.
[2021-10-06] MEDS: FUROSEMIDE 80 MG TABLET PO ×2 (12:49→16:55)
--- NOTE | 2021-10-06 14:56 | PCOTNOTE ---
Attempted to see pt. twice on this date, 1st attempt pt. was toileting, therapy waited approx. 8 minutes prior to leaving, pt. requested to sit longer. Attempted to see pt. a second time, presented in bed, aroused pt., explained the benefits of participating in therapy with pt. replying, not today, please. . Visual reminder provided on board, with pt. to participate in therapy tomorrow.
[2021-10-06 18:12] LABS: Glucose Point of Care 121 mg/dl (65-105)
[2021-10-06 22:54] LABS: Glucose Point of Care 122 mg/dl (65-105)
[2021-10-07 01:30] VITALS: PULSE 70; RESP 14; O2SAT 98
[2021-10-07 03:28] VITALS: PULSE 70; RESP 14; O2SAT 98
[2021-10-07 06:59] VITALS: BP 104/58; PULSE 71; RESP 18; TEMP 36.6; O2SAT 100
[2021-10-07 07:07] LABS: Hematocrit 24.2 % (37.0-47.0); Hemoglobin 7.5 g/dL (12.0-15.0); Immature Platelet Fraction Pct 6.8 % (0.9-11.2); Mean Corpuscular Hemoglobin 23.8 pg (26-34); Mean Corpuscular Volume 76.8 fl (80-100); Mean Platelet Volume 10.8 fl (7.4-10.4); Platelet Count Result 169 k/mm3 (150-375); Red Blood Count 3.15 M/mm3 (4.2-5.4); White Blood Count 8.1 K/mm3 (4.5-10.0)
[2021-10-07 07:29] LABS: Alanine Aminotransferase 11 U/L (4-35); Albumin Level 3.3 g/dL (3.5-5.1); Alkaline Phosphatase 96 U/L (38-126); Anion Gap 8 mmol/L (8-16); Aspartate Amino Transferase 38 U/L (14-36); Bilirubin,Total 0.6 mg/dL (0.2-1.3); Blood Urea Nitrogen 27 mg/dL (7-17); Calcium 8.8 mg/dL (8.4-10.2); Carbon Dioxide 26 mmol/L (22-30); Chloride 100 mmol/L (98-107); Estimated CRCL calculation 59 ml/min; Estimated Glomerular Filt Rate 50; Glucose 114 mg/dL (65-110); Potassium 3.6 mmol/L (3.4-5.0); Sodium 134 mmol/L (137-145)
[2021-10-07 07:39] LABS: Glucose Point of Care 111 mg/dl (65-105)
[2021-10-07 08:00] VITALS: O2SAT 94
[2021-10-07 08:19] LABS: Glucose Point of Care 107 mg/dl (65-105)
--- NOTE | 2021-10-07 09:33 | PM.DS ---
DS: Admitting Diagnosis Discharge Date 10/07/2021 Admitting Diagnosis (1) GI bleed: (2) UTI (urinary tract infection): (3) Congestive heart failure: (4) Anemia: (5) HTN (hypertension), malignant: (6) Acute on chronic respiratory failure with hypoxemia: (7) Pulmonary nodules: (8) COPD (chronic obstructive pulmonary disease): (9) Lung nodule: DS: Discharge Diagnosis Discharge Diagnosis (1) GI bleed: Code(s): K92.2 - Gastrointestinal hemorrhage, unspecified Status: Acute Assessment and Plan: Severe anemia of unknown origin; source is likely GI but has not katya identified so far. Hemoglobin steady at 8 after the patient was transfused 4 units of PRBC in 1st 24 hours She had EGD on 10/03 which showed gastritis and no obvious source of bleeding. SBFT was also unremarkable. Hemoglobin now appears to be stable. Continue PO PPI q.12 hours. Plan for capsule endoscopy per GI. (2) UTI (urinary tract infection): Code(s): N39.0 - Urinary tract infection, site not specified Status: Acute Assessment and Plan: Urine culture and blood culture have been negative Continue IV Rocephin (3) Congestive heart failure: Code(s): I50.9 - Heart failure, unspecified Status: Chronic Assessment and Plan: Patient carries a diagnosis of congestive heart failure. She did get Lasix in the ER ; later Lasix was held due to soft blood pressure and anemia from GI bleed. Patient O2 requirements slightly above baseline; currently reports peripheral edema with mild pretibial edema. Resume p.o. Lasix 80 mg p.o. b.i.d.. (4) Anemia: Code(s): D64.9 - Anemia, unspecified Status: Acute Assessment and Plan: Secondary to GI bleed but may have element of chronic anemia. Iron stores are low. will replete with venofer. B12 and folate levels are within normal range. (5) Erosive gastritis: Code(s): K29.60 - Other gastritis without bleeding Status: Acute Assessment and Plan: On last EGD and this EGD patient had gastritis. Patient is on chronic PPI at home Patient was started on IV PPI at this time while inpatient. Currently transitioned to p.o. PPI. She will be discharged on the same regimen as an outpatient for Lasix 4-6 weeks. (6) Acute respiratory failure: Code(s): J96.00 - Acute respiratory failure, unspecified whether with hypoxia or hypercapnia Status: Acute Assessment and Plan: Chest x-ray show pulmonary edema on presentation patient does have history of congestive heart failure She did get Lasix in ED. Improved and currently on 5 L nasal cannula which is her home oxygen requirement ABGs reviewed and shows no hypercarbia. Encourage compliance with non invasive ventilation. Continue CPAP at night as patient is supposed to be on a CPAP for her sleep apnea (7) SAMARA (acute kidney injury): Code(s): N17.9 - Acute kidney failure, unspecified Status: Acute Assessment and Plan: Acute nonoliguric kidney injury, with creatinine peaking at 1.2. Renal function is slowly improving with creatinine down to 1 today. Baseline creatinine 0.8-0.9 as of June 2021 Likely prerenal from blood loss and anemia Recent CT abdomen pelvis did not show any stone or obstruction Monitor urine output electrolytes and creatinine creatinine seems to be stable although slightly elevated. she was not given fluids due to CHF and pulmonary edema but did get blood transfusion urine output has improved monitor DS: Summary Hospital Course Reason for hospitalization: Weakness. Hospital Course: Please refer to admission H& P. Briefly,this is a 61-year-old and Turkish female who has a history of CHF, chronic respiratory failure on 4-5 L at home due to COPD. The patient came to the emergency room to be evaluated for nausea vomiting and diarrhea. The patient stated that was dark blood coming from her rectum. She is having waves of hot and cold but denies
[2021-10-07] MEDS: POLYSACCHARIDE IRON COMPLEX 150 MG CAPSULE PO (09:39)
[2021-10-07] MEDS: GABAPENTIN 100 MG CAPSULE PO (09:41)
[2021-10-07] MEDS: ASPIRIN 81 MG ENTERIC TABLET PO (09:42)
[2021-10-07] MEDS: PANTOPRAZOLE 40 MG TABLET PO (09:42)
[2021-10-07] MEDS: FUROSEMIDE 80 MG TABLET PO (09:42)
[2021-10-07] MEDS: EZETIMIBE 10 MG TABLET PO (09:42)
[2021-10-07] MEDS: ATORVASTATIN 40 MG TABLET PO (09:42)
--- NOTE | 2021-10-07 11:17 | PCOTNOTE ---
Attempted to see patient this am, however patient declined. Upon entering room, patient was completing sponge bath sitting edge of bed. Pt stated, I'm going home baby. My daughter's coming to pick me up. Pt had no concerns as pertains to OT at this time.
--- NOTE | 2021-10-07 11:23 | PCRCNOTE ---
Window of time for administration has passed. See next scheduled administration.
[2021-10-07 12:31] LABS: Glucose Point of Care 119 mg/dl (65-105)
== END 2021-10-07 14:02 | disposition home health service (06) | DRG 378 ==
LOC: ANHED 12:01 → ANHICU 19:40 → ANH3MEDSUR 10-04 22:01
PROVIDERS: Internal Medicine; Internal Medicine Gastroenterology; Admitting Provider Internal Medicine; Emergency Provider General Practice; PCP Internal Medicine Infectious Disease; Visit Provider Internal Medicine
PROC: 0DJ08ZZ Inspection of Upper Intestinal Tract, Via Natural or Artificial Opening Endoscopic (ICD-10-PCS; CPT 43235; principal; 2021-10-03 08:30)
DX: K92.2 Gastrointestinal hemorrhage, unspecified (principal); D62 Acute posthemorrhagic anemia; N17.9 Acute kidney failure, unspecified; Z68.42 Body mass index [BMI] 45.0-49.9, adult; N39.0 Urinary tract infection, site not specified; I50.42 Chronic combined systolic (congestive) and diastolic (congestive) heart failure; J96.11 Chronic respiratory failure with hypoxia; K29.60 Other gastritis without bleeding; R91.8 Other nonspecific abnormal finding of lung field; J44.9 Chronic obstructive pulmonary disease, unspecified; I11.0 Hypertensive heart disease with heart failure; G47.30 Sleep apnea, unspecified; D50.8 Other iron deficiency anemias; Z99.81 Dependence on supplemental oxygen; E66.01 Morbid (severe) obesity due to excess calories; Z79.82 Long term (current) use of aspirin; Z87.891 Personal history of nicotine dependence; Z90.49 Acquired absence of other specified parts of digestive tract
CPT/HCPCS: 36415; 36430; 36600; 51701; 71045; 74250; 80053; 81001; 82375; 82570; 82607; 82746; 82805; 82948; 83050; 83540; 83550; 83605; 83690; 83735; 83880; 84300; 84484; 85014; 85018; 85025; 85027; 85055; 85610; 85730; 86140; 86850; 86900; 86901; 86920; 87040; 87086; 93005; 94002; 94003; 94618; 94640; 94660; 96365; 96366; 96367; 96375; 96376; 97110; 97162; 97165; 97535; 99285; A9270; C9113; G0378; J0171; J0696; J1756; J1940; J2405; J3430; J7040; J7050; J7060; J7120; P9016

== ENCOUNTER 2021-11-19 12:34 | Inpatient (IN) | payer MEDICARE, MEDICAID, SELFPAY ==
[2021-11-19] VITALS (23 sets, daily range): BP systolic 99–139; BP diastolic 49–75; PULSE 69–80; RESP 12–20; TEMP 36.3–36.8; O2SAT 90–100; BMI 54.3
--- NOTE | ~2021-11-19 | XR_ITS ---
EXAMINATION: XR chest 1V portable DATE: 12/06/2021 11:04 INDICATION: Hypoxia TECHNIQUE: frontal view of the chest was obtained. COMPARISON: Chest radiograph dated 11/21/2021 FINDINGS: Pulmonary vascular congestion with increased indistinct interstitial pattern with basilar predominanc e. No pleural effusion or pneumothorax. Cardiomegaly. IMPRESSION: 1. Indistinct interstitial pattern with lower lung predominance most likely congestive heart failure related mild pulmonary edema with differential including pneumonia. 2. Cardiomegaly. Reviewed, dictated and finalized at location A. [facility] JUSTICE IMPRESSION: 1. Indistinct interstitial pattern with lower lung predominance most likely con gestive heart failure related mild pulmonary edema with differential including pneumonia. 2. Cardiomegaly.
--- NOTE | ~2021-11-19 | CT_ITS ---
EXAMINATION: CTA chest PE protocol DATE: 11/24/2021 14:51 INDICATION: Shortness of breath. TECHNIQUE: Computed tomography angiography (CTA) of the chest was performed with 100 mL Omnipaque-350 intravenous contrast timed to evaluate the pulmonary arteries. Coronal maximum intensity projection 3D-reconstructions were created by the technologist. Automated exposure control and iterative reconst ruction technique were employed. The dose-length product was 867.69 mGy-cm. COMPARISON: Chest CT 02/05/2021 FINDINGS: There is mild emphysema. There is mild atelectasis bilaterally. There is septal thickening in the lungs. There is a chronic 12 mm nodule in right upper lobe containing fat, consistent with a h amartoma. No pleural effusion. Cardiomegaly is noted. There are coronary artery calcifications. There is a small pericardial effusion. There is a small volume of ascites. There is edema of the intra-abd ominal fat and body wall fat. There is mild mediastinal and bilateral hilar lymphadenopathy. There is mild bilateral axillary lymphadenopathy. There is no pulmonary embolus. There is moderate thoracic s pondylosis. IMPRESSION: 1. No pulmonary embolus. 2. Mild pulmonary edema. 3. Mild emphysema. 4. Cardiomegaly. 5. Chronic mediastinal and bilateral hilar lymphadenopathy, likely reactive. New mild bilateral axillary lymphadenopathy, likely reactive. 6. Small volume of ascites. Reviewed, dictated and finalized at location A. PMENT MANAGER
--- NOTE | ~2021-11-19 | US_ITS ---
EXAMINATION: US renal BI EXAM DATE: 11/23/2021 10:28 INDICATION: Acute kidney insufficiency. TECHNIQUE: Multiple grayscale and Doppler images of the kidneys were obtained (by a technologist who performed the scan) and subsequently reviewed. There is no prior study for comparison. FINDINGS: Right kidney: There is normal contour and echogenicity. It measures 11.1 x 6.7 x 5.7 centimeters. T here are no focal renal lesions identified. There is no hydronephrosis. Left kidney: There is normal contour and echogenicity. It measures 11.4 x 7.0 x 5.4 centimeters. Th ere are no focal renal lesions identified. There is no hydronephrosis. Pope within collapsed bladder. IMPRESSION: 1. No hydronephrosis. Reviewed, dictated and finalized at location A. LMAN IMPRESSION: 1. No hydronephrosis.
--- NOTE | ~2021-11-19 | CT_ITS ---
EXAMINATION: CT abdomen pelvis wo con DATE: 11/19/2021 13:15 INDICATION: Abdominal pain and distention TECHNIQUE: Computed tomography (CT) of the abdomen and pelvis was performed without intravenous contr ast. Automated exposure control and iterative reconstruction technique were employed. The dose-length product was 1582.83 mGy-cm. COMPARISON: CT studies dated 07/15/2021 and 09/08/2019 FINDINGS: 10 x 6 mm left lower lobe nodule with macroscopic fat attenuation unchanged since 09/08/2019 consiste nt with a hamartoma. Smooth septal line thickening at the bilateral lung bases consistent with mild p ulmonary edema. Mild dependent atelectasis in the bilateral lower lobes. Enlargement of the central p ulmonary arteries consistent with pulmonary arterial hypertension. Cardiomegaly with prominent right atrial enlargement. Atherosclerotic coronary artery calcification. Tiny pericardial effusion. No pleu ral effusion. Prominent diffuse body wall edema extending from the lower chest into the thighs. Suggestion of subtle liver surface nodularity consistent with cirrhosis. Gallbladder is again not vis ualized and likely surgically absent. Spleen, pancreas, bilateral adrenal glands and kidneys are norm al. Bladder, anteverted uterus and bilateral adnexa are unremarkable. No dilated bowel to suggest obs truction. Small amount of ascites throughout the abdomen and pelvis. Intravenous mild likely reactive bilateral inguinal lymphadenopathy. No definitive pathologically enlarged abdominal or pelvic lympha denopathy although evaluation is limited on the current noncontrast examination. Moderate to severe l umbar spondylosis. Moderate bilateral hip osteoarthritis. IMPRESSION: 1. Likely congestive heart failure with moderate cardiomegaly and mild pulmonary edema. 2. Suggestion of cirrhosis with subtle liver surface nodularity. 3. Small amount of ascites which could be related to cirrhosis or congestive heart failure which like ly also accounts for the large amount of body wall edema. 4. Likely reactive mild bilateral inguinal lymphadenopathy. Reviewed, dictated and finalized at location A. ITURE CRATER IMPRESSION: 1. Likely congestive heart failure with moderate cardiomegaly and mild pulmonar y edema. 2. Suggestion of cirrhosis with subtle liver surface nodularity. 3. Small amount of ascites which could be related to cirrhosis or congestive he art failure which likely also accounts for the large amount of body wall edema. 4. Likely reactive mild bilateral inguinal lymphadenopathy.
--- NOTE | ~2021-11-19 | XR_ITS ---
EXAMINATION: XR chest 1V DATE: 11/19/2021 13:18 INDICATION: Shortness of breath. Bilateral lower limb swelling TECHNIQUE: frontal view of the chest was obtained. COMPARISON: Chest radiograph dated 10/01/2021 FINDINGS: Interstitial and hazy opacities in the bilateral lower lung zones suggesting mild pulmonary edema. No pleural effusion or pneumothorax. Cardiac Megaly. Enlargement of the central pulmonary arteries cons istent with pulmonary arterial hypertension. IMPRESSION: 1. Interstitial and hazy airspace opacities in the lower lungs consistent with mild pulmonary edema, possibly due to congestive heart failure given the enlarged heart. 2. Enlargement of the central pulmonary arteries consistent with pulmonary arterial hypertension. Reviewed, dictated and finalized at location A. [facility]NER IMPRESSION: 1. Interstitial and hazy airspace opacities in the lower lungs consistent with mild pulmonary edema, possibly due to congestive heart failure given the enlarg ed heart. 2. Enlargement of the central pulmonary arteries consistent with pulmonary radha rial hypertension.
--- NOTE | ~2021-11-19 | XR_ITS ---
XR chest 1V portable DATE: 11/21/2021 12:56 INDICATION: Hypoxia TECHNIQUE: Portable upright AP chest on 11/21/2021 1246 hours COMPARISON: 11/19/2021 AP chest FINDINGS: Cardiomegaly, pulmonary vascular congestion and redistribution. There are bilateral primari ly central and lower lung infiltrates which may be due to pulmonary edema. Pneumonia is not excluded. There is an approximately 1 cm mass in the right upper lobe previously reported to contain fat on 01/28 CT examination consistent with hamartoma. Subtle pulmonary arteries are prominent, suggesting possible pulmonary hypertension. No pleural effusion or pneumothorax is evident. 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
--- NOTE | 2021-11-19 12:37 | ECG_ITS ---
Measurements Intervals [place] Rate: 75 P: 57 [place]: 188 QRS: 22 QRSD: 115 T: 91 QT: 427 QTc: 478 Interpretive Statements SINUS RHYTHM INTRAVENTRICULAR CONDUCTION DELAY BORDERLINE T WAVE ABNORMALITY- HIGH LATERAL LEADS BASELINE ARTIFACT- I, III, AVL, AVF, V1-V4 BORDERLINE ECG Electronically Signed On 11-19-2021 13:03:59 MATH SPECIALIST by Jett Hopkins D.O.
[2021-11-19 12:52] LABS: Alveolar/Arterial O2 Gradient 609.3 mmHg; Base Excess ABG -1.4 mEq/l (+/-2.0); Fractional Inspired Oxygen 100 %; Oxygen Saturation ABG 93.6 % (95.0-100.0); Oxyhemoglobin 89.4 % THb (90.0-100.0); PCO2 ABG 36.9 mmHg (35.0-45.0); PO2 ABG 66.8 mmHg (80.0-100.0); PO2 FiO2 Ratio Arterial Blood 0.67 %; Total Hemoglobin 8.7 g/dL (12.0-18.0); pH ABG 7.412 (7.350-7.450)
[2021-11-19 12:53] LABS: Device NON-REBREATHER MASK; Modified Allen's Test Pass; Site Drawn LEFT RADIAL
[2021-11-19 13:03] LABS: Basophils Percent Auto 0.5 % (0.2-1.2); Eosinophils Absolute Auto 0.1 K/mm3 (0-0.3); Eosinophils Percent Auto 1.2 % (0-4.4); Hematocrit 26.6 % (37.0-47.0); Hemoglobin 7.8 g/dL (12.0-15.0); Immature Granulocyte Absolute 0.03 K/mm3 (0.00-0.031); Immature Granulocyte Percent A 0.4 % (0-0.5); Immature Platelet Fraction Pct 4.5 % (0.9-11.2); Lymphocytes Absolute Auto 0.97 K/mm3 (0.9-3.2); Lymphocytes Percent Auto 11.5 % (18.3-44.2); Mean Corpuscular HGB Conc 29.3 g/dl (32-36); Mean Corpuscular Hemoglobin 21.3 pg (26-34); Mean Corpuscular Volume 72.7 fl (80-100); Mean Platelet Volume 11.1 fl (7.4-10.4); Monocytes Absolute Auto 0.4 K/mm3 (0.1-0.6); Monocytes Percent Auto 4.9 % (2.6-8.5); Neutrophils Absolute Auto 6.9 K/mm3 (1.3-6.7); Neutrophils Percent Auto 81.5 % (45.5-73.1); Platelet Count Result 340 k/mm3 (150-375); Red Blood Count 3.66 M/mm3 (4.2-5.4); Red Cell Distribution Width 21.5 % (11.5-14.5); White Blood Count 8.4 K/mm3 (4.5-10.0)
[2021-11-19 13:08] LABS: INR 1.5; Prothrombin Time 17.6 Seconds (11.1-14.7)
[2021-11-19 13:09] LABS: Partial Thromboplastin Time 29.5 SECONDS (22.3-36.8)
[2021-11-19 13:18] LABS: Lactic Acid Reflex 1.2 mmol/L (0.7-2.1); Platelet Estimate Adequate (Adequate)
[2021-11-19 13:19] LABS: Hypochromasia 2+ (NORMAL); Poikilocytosis 2+ (NORMAL)
[2021-11-19 13:20] LABS: Anisocytosis 1+ (NORMAL)
[2021-11-19 13:21] LABS: Acanthocytes 1+ (NORMAL); Helmet Cells 1+ (NORMAL); Ovalocytes 2+ (NORMAL); Schistocytes 1+ (NORMAL); Stomatocytes 1+ (NORMAL); Target Cells 2+ (NORMAL); Tear Drop Cells 1+ (NORMAL)
[2021-11-19 13:23] LABS: Add Urine Microscopic? YES; Appearance Urine Clear (Clear); Bacteria Urine Trace /hpf; Bilirubin Urine Negative (Negative); Blood Urine 1+ (Negative); Color Urine Yellow (Yellow); Glucose Urine UA Negative (Negative); Ketones Urine Negative (Negative); Leukocyte Esterase Ur 3+ LEU/UL (Negative); Mucus Urine Rare /lpf; Nitrate Urine Negative (Negative); Protein Urine Negative (Negative); Specific Grav Ur 1.009 (1.001-1.035); Squamous Epithelial Cell Urine Many /hpf (Few); Urobilinogen Urine Negative mg/dL (<2.0); WBC Urine 21-30 /hpf
[2021-11-19] MEDS: FUROSEMIDE INJ 40 MG/4 ML VIAL IV PUSH ×2 (13:50→19:52)
[2021-11-19 14:05] LABS: Alanine Aminotransferase 9 U/L (4-35); Albumin Level 3.7 g/dL (3.5-5.1); Alkaline Phosphatase 138 U/L (38-126); Anion Gap 13 mmol/L (8-16); Aspartate Amino Transferase 33 U/L (14-36); Blood Urea Nitrogen 47 mg/dL (7-17); Calcium 9.1 mg/dL (8.4-10.2); Carbon Dioxide 25 mmol/L (22-30); Chloride 99 mmol/L (98-107); Estimated CRCL calculation 45 ml/min; Estimated Glomerular Filt Rate 32; Glucose 129 mg/dL (65-110); Lipase 355 U/L (23-300); Potassium 3.2 mmol/L (3.4-5.0); Sodium 137 mmol/L (137-145)
[2021-11-19 14:16] LABS: NT Pro B Type Natriuretic Pept 4280 pg/mL (5-100); Troponin I < 0.012 ng/mL (0.000-0.034)
--- NOTE | 2021-11-19 14:47 | ED.GENADULT ---
HPI - General Adult General Chief complaint: Shortness of Breath/Dyspnea Stated complaint: SOB Time Seen by Provider: 11/19/21 12:36 History of Present Illness HPI narrative: Patient 61-year-old female presents the emergency department with chief complaint of shortness of breath. Patient reports he has history of congestive heart failure reports that her legs been swelling up and her abdomen has become more distended as well. The patient reports she has been taking her Lasix but has had a significant weight gain the patient reports she is felt short of breath when EMS arrived she was significantly hypoxic and required 100% nonrebreather. The patient reports this is similar to whenever she had CHF exacerbations in the past. Related Data Home Medications Medication Instructions Recorded Confirmed aspirin [Aspir-81] 81 mg PO DAILY 09/08/19 10/02/21 atorvastatin 40 mg PO DAILY 09/08/19 10/02/21 ezetimibe 10 mg PO DAILY 09/08/19 10/02/21 polysaccharide iron complex 150 mg PO BID 07/11/20 10/02/21 [Poly-Iron] metformin 500 mg PO DAILY 04/07/21 10/02/21 Anoro Ellipta 1 inh INHALATION DAILY 10/02/21 10/02/21 amlodipine [Norvasc] 10 mg PO DAILY 10/02/21 10/02/21 Allergies Allergy/AdvReac Type Severity Reaction Status Date / Time Penicillins Allergy Hives Verified 11/19/21 12:59 Sulfa (Sulfonamide Allergy Itching Verified 11/19/21 12:59 Antibiotics) Review of Systems Review of Systems: A 10 system review of systems was completed on the patient and is negative except for what is stated in the HPI. Nursing and ancillary documentation was reviewed. [facility] Past Medical History Medical History Acute on chronic blood loss anemia Adrenal mass Anemia Chronic hypoxemic respiratory failure Congestive heart failure COPD (chronic obstructive pulmonary disease) Diabetes mellitus HTN (hypertension), malignant Hyperlipidemia Hypertension Lung nodule 11 mm Melena Tobacco abuse 35 pack year, quit Aug 2019. Surgical History Surgical History H/O section x3 H/O colonoscopy with polypectomy H/O esophagogastroduodenoscopy History of appendectomy Hx of cholecystectomy Family History Family History Grandparent Congestive heart failure Mother HTN (hypertension) with goal to be determined Hyperlipidemia Cancer Sibling Age: 55 HTN (hypertension) with goal to be determined Asthma Lupus Sibling Age: 52 Diabetes mellitus Heart disease Social History Social History Social History: The patient typically smoked 1 pack a cigarettes a day for 35 years. she said she stop smoking August of 2019. She has 3 children. She is unemployed at this time. 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 But wants to be a full code. She became disabled many years ago 2007 when she injured her back. 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 She lives with her friend Smoking packs per day: 2 Smoking cigarettes per day: 40.0 Years smoked: 30 Smoking pack-years: 60.00 Smoking status: Former smoker Tobacco type: cigarettes Smoking end date: 10/30/18 Alcohol intake: former Alcohol use details: Drank more in the past, occasional use now. Substance use: never Substance use type: does not use Additional living arrangements comments: Lives with her sister. 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 Gender identity (if verbalized by the patient): Female Spiritual care concerns: No Agree to blood products: Yes Exam Narrative: GENERAL: Well-appeari
--- NOTE | 2021-11-19 15:45 | PM.IMHP ---
H&P: HPI History of Present Illness Date/Time: 11/19/21 15:45 Chief Complaint: Shortness of breath. Narrative: This is a 61-year-old female with diastolic congestive heart failure, COPD, sleep apnea, chronic respiratory failure on oxygen, cirrhosis, and several other comorbidities who presented to the emergency department earlier today via EMS from home for evaluation of shortness of breath. Over the past 1 week the patient has noticed increasing edema in her legs up to the flanks as well as dyspnea on lesser and lesser exertion. On EMS arrival, her SpO2 was in the 70s on her usual 4 L nasal cannula and she was initially started on a non-rebreather however she has been weaned back down to 5 L. Imaging done on arrival to the emergency department is consistent with pulmonary edema and she is being admitted for treatment of congestive heart failure exacerbation. She states compliance with her Lasix and she does not use any extra salt in her diet though I am not certain she monitors her intake. She has had good urine output since receiving IV Lasix and she thinks the swelling in her ankles is already improving. She has not had fever, chills, sweats, chest pain, pleuritic pain, nausea, or vomiting. Review of Systems Review of Systems: Twelve systems were reviewed. No cold or flu symptoms. No sick contacts. She occasionally has a cough at home and that is not unusual for her. It is rarely productive of white to clear phlegm. She has chronic orthopnea which is unchanged. She denies syncope and near-syncope. She does report increasing difficulties when getting around with her walker at home which she attributes to weight gain from the edema. She has not had any falls, luckily. No focal weakness. Except as documented, all other systems were reviewed and are negative. [facility] Past Medical History Medical History (Updated 11/20/21 @ 00:36 by Ghazala Simon PA-C) Adrenal mass Chronic anemia Chronic hypoxemic respiratory failure Chronic obstructive pulmonary disease Congestive heart failure Diabetes mellitus Hyperlipidemia Hypertension Lung nodule 11 mm Tobacco abuse 35 pack year, quit Aug 2019. Surgical History Surgical History (Updated 11/19/21 @ 15:49 by Ghazala Simon PA-C) History of 3 sections History of appendectomy History of cholecystectomy History of colonoscopy with polypectomy History of esophagogastroduodenoscopy Family History Family History Grandparent Congestive heart failure Mother HTN (hypertension) with goal to be determined Hyperlipidemia Cancer Sibling Age: 55 HTN (hypertension) with goal to be determined Asthma Lupus Sibling Age: 52 Diabetes mellitus Heart disease Social History Social History Social History: Lives in [place]. 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 Has 3 children. Smoked up to 2 packs of cigarettes a day for 40 years. Occasional alcohol use in moderation. Smoking packs per day: 2 Smoking cigarettes per day: 40.0 Years smoked: 30 Smoking pack-years: 60.00 Smoking status: Never smoker Tobacco type: cigarettes Smoking end date: 10/30/18 Alcohol intake: never Substance use: never Spiritual care concerns: No Meds Home Medications and Allergies Home Medications Medication Instructions Recorded Confirmed Type aspirin [Aspir-81] 81 mg PO DAILY 09/08/19 11/19/21 History atorvastatin 40 mg PO DAILY 09/08/19 11/19/21 History ezetimibe 10 mg PO DAILY 09/08/19 11/19/21 History polysaccharide iron complex 150 mg PO BID 07/11/20 11/19/21 History [Poly-Iron] budesonide-formoterol [Symbicort] 2 puff INHALATION Q12HRT #10.2 g 02/09/21 11/19/21 Rx metformin 500 mg PO DAILY 04/07/21 11/19/21 History furosemide [Lasix] 80 mg PO BID #60 tablet 07/23/21 11/19/21 Rx debra
[2021-11-19 21:55] LABS: SARS-CoV-2 RNA PCR Negative
[2021-11-20] VITALS (11 sets, daily range): BP systolic 97–106; BP diastolic 50–65; PULSE 68–77; RESP 16–22; TEMP 36.5–37.1; O2SAT 89–100
--- NOTE | 2021-11-20 | ECHO_ITS ---
Patient Info Name: Maura Hill Age: 61 years : 1960 Gender: Female Ht: 68 in Wt: 354 lbs BSA: 2.87 m2 HR: 73 bpm Technical Quality: Good Exam Date: 11/20/2021 1:19 PM Exam Location: [facility] Patient Status: Outpatient Admit Date: 11/19/2021 Staff Ordering Physician: Chelsi Taylor Manager Fleet: Angeli Becerra RDCS Attending Provider: Kun Granados MD Referring Physician: Brandon NORTH; Exam Type: CA echo doppler color flow Study Info Indications I50.20 - Unspecified systolic (congestive) heart failure Complete two-dimensional, color flow and Doppler transthoracic echocardiogram is performed. Summary 1. Complete two-dimensional, color flow and Doppler transthoracic echocardiogram is performed. 2. Left ventricular chamber dimension is normal. 3. Left ventricular systolic function is normal, estimated at 65-70%. 4. There is moderately increased left ventricular wall thickness. 5. The left ventricular diastolic function is grade I diastolic dysfunction. 6. E/e' 15 is elevated. 7. Left atrial chamber dimension is mildly enlarged. 8. Right atrial chamber dimension is moderately enlarged. 9. There is mild aortic valve sclerosis. 10. The mitral valve has severe posterior calcified annulus. 11. There is mild to moderate tricuspid valve regurgitation. 12. Severe pulmonary hypertension, estimated pulmonary arterial systolic pressure is 69 mmHg. 13. There is mild pulmonic regurgitation. 14. Dilated inferior vena cava with >50% collapse upon inspiration consistent with elevated right atrial pressure, 10 mmHg. Left Ventricle E/e' 15 is elevated. Left ventricular chamber dimension is normal. Left ventricular systolic function is normal, estimated at 65-70%. There is moderately increased left ventricular wall thickness. The left ventricular diastolic function is grade I diastolic dysfunction. Right Ventricle Right ventricular chamber dimension is normal. Right ventricular systolic function is normal. Left Atria Left atrial chamber dimension is mildly enlarged. Right Atria Right atrial chamber dimension is moderately enlarged. Aortic Valve The aortic valve is trileaflet. There is mild aortic valve sclerosis. There is no aortic valve stenosis. There is no aortic valve regurgitation. Pulmonic Valve There is mild pulmonic regurgitation. Mitral Valve The mitral valve has severe posterior calcified annulus. There is no mitral valve stenosis. There is no mitral valve regurgitation. Tricuspid Valve There is mild to moderate tricuspid valve regurgitation. Severe pulmonary hypertension, estimated pulmonary arterial systolic pressure is 69 mmHg. Pericardium/Pleural There is no pericardial effusion. Inferior Vena Cava Dilated inferior vena cava with >50% collapse upon inspiration consistent with elevated right atrial pressure, 10 mmHg. Aorta The aortic root size at the sinus of Valsalva is normal. Left Ventricular Outflow Tract Name Value Normal LVOT 2D LVOT Diameter 1.9 cm LVOT Doppler LVOT Peak Gradient 7 mmHg LVOT Mean Gradient
[2021-11-20] MEDS: POTASSIUM CHLORIDE 20 MEQ TABLET 40 MEQ PO (03:24)
[2021-11-20 06:45] LABS: Hematocrit 24.4 % (37.0-47.0); Hemoglobin 7.2 g/dL (12.0-15.0); Mean Corpuscular HGB Conc 29.5 g/dl (32-36); Mean Corpuscular Hemoglobin 21.6 pg (26-34); Mean Corpuscular Volume 73.1 fl (80-100); Mean Platelet Volume 10.8 fl (7.4-10.4); Platelet Count Result 312 k/mm3 (150-375); Red Blood Count 3.34 M/mm3 (4.2-5.4); Red Cell Distribution Width 21.4 % (11.5-14.5); White Blood Count 7.4 K/mm3 (4.5-10.0)
[2021-11-20 06:59] LABS: Magnesium 2.3 mg/dL (1.6-2.3)
[2021-11-20 07:21] LABS: Hemoglobin A1C 6.3 % (<5.7)
[2021-11-20] MEDS: GABAPENTIN 100 MG CAPSULE PO ×3 (09:00→16:35)
[2021-11-20] MEDS: POLYSACCHARIDE IRON COMPLEX 150 MG CAPSULE PO ×2 (09:00→16:35)
[2021-11-20] MEDS: FUROSEMIDE INJ 40 MG/4 ML VIAL IV PUSH ×2 (09:00→20:04)
[2021-11-20] MEDS: EZETIMIBE 10 MG TABLET PO (09:00)
[2021-11-20] MEDS: ATORVASTATIN 40 MG TABLET PO (09:00)
[2021-11-20] MEDS: PANTOPRAZOLE 40 MG TABLET PO ×2 (09:01→16:35)
[2021-11-20 09:08] LABS: Glucose Point of Care 121 mg/dl (65-105)
--- NOTE | 2021-11-20 11:10 | PM.IMPN ---
Progress Note: A&P Assessment and Plan (1) Acute exacerbation of congestive heart failure: Code(s): I50.9 - Heart failure, unspecified Status: Acute Assessment and Plan: Continue Lasix [address] Hopkins consulted for further recommendation Strict I/O Daily weights Check ECHO Monitor (2) Renal failure: Code(s): N19 - Unspecified kidney failure Status: Acute Assessment and Plan: Creatinine worsening 1.9, from 1.3, may be related to congestion and poor output due to CHF Monitor her renal function closely while diuresing Avoid nephrotoxins Consider nephrology consult Monitor (3) Chronic anemia: Code(s): D64.9 - Anemia, unspecified Status: Acute Assessment and Plan: Hemoglobin is stable but remains in the mid sevens. 7.2 today Continue iron supplementation Also continue PPI as she was noted to have gastritis on EGD in September 2021 Monitor (4) Hypertension: Qualifiers: Hypertension type: essential hypertension Qualified Code(s): I10 - Essential (primary) hypertension Code(s): I10 - Essential (primary) hypertension Status: Acute Assessment and Plan: Blood pressures stable, soft sometimes Monitor closely while diuresing (5) COPD (chronic obstructive pulmonary disease): Qualifiers: COPD type: unspecified COPD Qualified Code(s): J44.9 - Chronic obstructive pulmonary disease, unspecified Code(s): J44.9 - Chronic obstructive pulmonary disease, unspecified Status: Chronic Assessment and Plan: No acute exacerbation Continue maintenance inhalers (6) Diabetes mellitus: Qualifiers: Diabetes mellitus type: type 2 Diabetes mellitus pediatric allergist insulin use: without longterm use Diabetes mellitus complication status: with hyperglycemia Qualified Code(s): E11.65 - Type 2 diabetes mellitus with hyperglycemia Code(s): E11.9 - Type 2 diabetes mellitus without complications Status: Chronic Assessment and Plan: Continue sliding scale insulin, Accu-Cheks, and hypoglycemic protocol Monitor (7) Generalized weakness: Code(s): R53.1 - Weakness Status: Acute Assessment and Plan: Related to deconditioning, weight gain, and chronic comorbidities PT/OT consulted Patient would benefit from rehab before returning home Fall precautions (8) Hypokalemia: Code(s): E87.6 - Hypokalemia Status: Acute Assessment and Plan: Mild K+ 3.2 Replaced with 40 meq KCL Monitor Subjective Date/time seen: 11/20/21 11:10 Interval history: Pt seen and evaluated; labs, vs, diagnostic results reviewed; continues with SOB and generalized weakness Review of Systems Review of Systems: All systems reviewed & are unremarkable except as noted in HPI and below Exam Narrative: General: Chronically ill-appearing female in no acute distress. HEENT: EOMI. Sclerae anicteric. Moist mucous membranes.. Neck: Supple. Respiratory: Lung sounds are diminished throughout; crackles in the bases. Cardiovascular: Regular rate and rhythm with S1-S2. Gastrointestinal: Abdomen is morbidly obese with pitting edema at the flanks. Positive bowel sounds. Skin: Warm and dry. No rash or lesions on limited exam. Extremities: No cyanosis or clubbing. +2 pitting edema BLE. Neurological: AO3. generalized weakness without focal deficits. Psychiatric: Pleasant and cooperative with normal mood and affect. Objective Data Vital Signs Vital Signs: Vital Signs - 24 hr 11/19/21 12:38 11/19/21 12:41 11/19/21 12:45 Temperature 36.7 C Pulse Rate 80 Respiratory Rate 20 16 Blood Pressure Pulse Oximetry 98 93 100 11/19/21 13:01 11/19/21 13:03 11/19/21 13:22 Temperature Pulse Rate 76 72 Respiratory Rate 16 Blood Pressure Pulse Oximetry 100 100 11/19/21 13:24 11/19/21 13:30 11/19/21 13:34 Temperature Pulse Rate 80 73 Respiratory Rate 16 18 Bl
[2021-11-20 12:25] LABS: Glucose Point of Care 143 mg/dl (65-105)
[2021-11-20] MEDS: POTASSIUM CHLORIDE INJ 40 MEQ in SODIUM CHLORIDE 0.9% IV 500 ML 130 MEQ IVPB (13:51)
[2021-11-20 15:09] LABS: Alveolar/Arterial O2 Gradient 594.3 mmHg; Base Excess ABG 2.7 mEq/l (+/-2.0); Fractional Inspired Oxygen 100 %; HCO3 ABG 27.6 mEq/l (22.0-26.0); Oxygen Content ABG 10.8 %vol (16.0-22.0); Oxygen Saturation ABG 95.1 % (95.0-100.0); Oxyhemoglobin 91.4 % THb (90.0-100.0); PO2 ABG 74.7 mmHg (80.0-100.0); PO2 FiO2 Ratio Arterial Blood 0.75 %; Total Hemoglobin 8.3 g/dL (12.0-18.0); pH ABG 7.415 (7.350-7.450)
[2021-11-20 15:10] LABS: Site Drawn RIGHT RADIAL
[2021-11-20 15:11] LABS: Device NASAL CANNULA; Modified Allen's Test Pass
--- NOTE | 2021-11-20 15:50 | PM.CNCAR ---
Assessment and Plan Assessment and plan (1) Acute exacerbation of CHF (congestive heart failure): Qualifiers: Heart failure type: systolic Qualified Code(s): I50.23 - Acute on chronic systolic (congestive) heart failure Code(s): I50.9 - Heart failure, unspecified Status: Acute Assessment and Plan: Volume overload due to a combination of acute on chronic diastolic heart failure, worsening CKD due to cardiorenal syndrome, severe pulmonary hypertension, high output failure from anemia. Difficult to keep euvolemic due to cardiorenal syndrome. Agree with Lasix 40 mg IV BID at this time. (2) Chronic anemia: Code(s): D64.9 - Anemia, unspecified Status: Acute Assessment and Plan: Microcytic anemia suggests blood loss or iron deficiency anemia. Workup and manage anemia. Consider PRBC transfusion slowly with administration of Lasix IV to prevent congestion. (3) Pulmonary hypertension: Code(s): I27.20 - Pulmonary hypertension, unspecified Status: Acute Assessment and Plan: Probably due to a combination of GUANACO and COPD. (4) SAMARA (acute kidney injury): Code(s): N17.9 - Acute kidney failure, unspecified Status: Acute Assessment and Plan: Monitor renal function and electrolytes closely and replace as needed. (5) Hyperlipidemia: Qualifiers: Hyperlipidemia type: unspecified Qualified Code(s): E78.5 - Hyperlipidemia, unspecified Code(s): E78.5 - Hyperlipidemia, unspecified Status: Chronic Assessment and Plan: On Atorvastatin, Zetia. (6) COPD (chronic obstructive pulmonary disease): Qualifiers: COPD type: unspecified COPD Qualified Code(s): J44.9 - Chronic obstructive pulmonary disease, unspecified Code(s): J44.9 - Chronic obstructive pulmonary disease, unspecified Status: Chronic (7) Obstructive sleep apnea: Code(s): G47.33 - Obstructive sleep apnea (adult) (pediatric) Status: Acute History of Present Illness History of Present Illness Consult date/time: 11/20/21 15:50 Reason for consult: CHF. 61 yr old woman who is my regular cardiology patient presents to ER with sob. She has a history of COPD (sees Alvarado Mcfadden) on home oxygen at 6 l/m, quit smoking in Aug 2019, GUANACO on CPAP, hypertension, dyslipidemia, DM, diastolic heart failure, pulm hypertension, chronic anemia. States she has orthopnea, MULLIGAN with minimal exertion and edema of feet for last 1 week. She can walk minimal distance just in her house with a walker due to MULLIGAN and is on 6 l/m oxygen all the time. Denies chest pain, palpitations, dizziness. EKG: Sinus rhythm, IVCD, borderline T wave in high lateral leads. CXR: Mild pulm edema. Pulm arterial hypertension. CT abd: Suggestion of cirrhosis. Small ascites. NTproBNP 4,280. Cr 1.9/Cr Cl 45. Hb 7.2. Cardiovascular Procedures Echo/MUGA:: 11/20/21 Echo: EF 65-70%, grade I diastolic dysfunction (E/e' 15), mod LVH, mild LAE, mod BASILIO, severe posterior MAC, mild-mod TR, RVSP 69 mmHg. 07/14/21 Echo: EF 65-70%, grade I diastolic dysfunction, mod LVH, mild RVE, mod BASILIO, mild TR, RVSP 46 mmHg. 07/13/20 Echo: EF >70%, mild LVH, mild LAE, RVSP 66 mmHg. Electrophysiology:: 11/19/21 EKG: Sinus rhtyhm, IVCD, borderline T wave in high lateral leads. 07/14/21 EKG: Sinus rhythm, IRBBB, borderline T wave in lat/high lat leads. 07/13/20: 2 day event monitor: Sinus rhythm, HR range 50-120 bpm; average 74 bpm. 07/11/20 EKG: Sinus rhythm with sinus arrhythmia, frequent PAC's, borderline ST-T wave in high lateral leads. Stress Tests:: 07/22/21 CXR: CHF. 07/13/20 CXR: Mild CHF. Reason For Visit: CHF acute exacerbation/pulmonary edema Review of Systems Review of Systems: All systems reviewed & are unremarkable except as noted in HPI and below Constitutional: Constitutional: Reports as per HPI, Denies chills, Reports fatigue and Denies fever(s) Cardiovascular: Cardiovascular: Reports as per HPI, Denies melvi
[2021-11-20 17:13] LABS: Glucose Point of Care 155 mg/dl (65-105)
[2021-11-21] VITALS (14 sets, daily range): BP systolic 85–109; BP diastolic 54–65; PULSE 61–71; RESP 18–22; TEMP 35.9–36.6; O2SAT 92–100
--- NOTE | 2021-11-21 07:50 | PM.PNCARD ---
Progress Note: A&P Assessment and Plan (1) Acute exacerbation of CHF (congestive heart failure): Qualifiers: Heart failure type: systolic Qualified Code(s): I50.23 - Acute on chronic systolic (congestive) heart failure Code(s): I50.9 - Heart failure, unspecified Status: Acute Assessment and Plan: Volume overload due to a combination of acute on chronic diastolic heart failure, worsening CKD due to cardiorenal syndrome, severe pulmonary hypertension, high output failure from anemia. Difficult to keep euvolemic due to cardiorenal syndrome. Agree with Lasix 40 mg IV BID at this time. CMP pending. Spoke to RN about labs not showing up for 2 days. (2) Chronic anemia: Code(s): D64.9 - Anemia, unspecified Status: Acute Assessment and Plan: Microcytic anemia suggests blood loss or iron deficiency anemia. Workup and manage anemia. Consider PRBC transfusion slowly with additional administration of Lasix IV to prevent congestion. CBC pending. (3) Pulmonary hypertension: Code(s): I27.20 - Pulmonary hypertension, unspecified Status: Acute Assessment and Plan: Probably due to a combination of GUANACO and COPD. (4) SAMARA (acute kidney injury): Code(s): N17.9 - Acute kidney failure, unspecified Status: Acute Assessment and Plan: Monitor renal function and electrolytes closely and replace as needed. (5) Hyperlipidemia: Qualifiers: Hyperlipidemia type: unspecified Qualified Code(s): E78.5 - Hyperlipidemia, unspecified Code(s): E78.5 - Hyperlipidemia, unspecified Status: Chronic Assessment and Plan: On Atorvastatin, Zetia. (6) COPD (chronic obstructive pulmonary disease): Qualifiers: COPD type: unspecified COPD Qualified Code(s): J44.9 - Chronic obstructive pulmonary disease, unspecified Code(s): J44.9 - Chronic obstructive pulmonary disease, unspecified Status: Chronic (7) Obstructive sleep apnea: Code(s): G47.33 - Obstructive sleep apnea (adult) (pediatric) Status: Acute Subjective Date/time seen: 11/21/21 07:50 Patient reports breathing OK with face mask and oxygen. Denies chest pain. Exam Const: General: cooperative, healthy appearing and comfortable Nutritional Appearance: obese Resp: Auscultation: no crackles, no rales, no rhonchi, no wheezes and diminished lung sounds Cardio: Jugular venous distension: no JVD Rate: regular rate Rhythm: regular rhythm Heart sounds: no murmurs GI: GI Palp: No abdominal tenderness and Yes Soft to palpation Neuro: General: oriented to person, oriented to place and oriented to time Extrem: Right lower extremity: edema Left lower extremity: edema Other: Mild-mod edema of both legs Objective Data Vital Signs Vital Signs: Vital Signs - 24 hr 11/20/21 08:00 11/20/21 11:30 11/20/21 12:00 Temperature Pulse Rate 73 75 Respiratory Rate 22 H Blood Pressure Pulse Oximetry 91 11/20/21 14:00 11/20/21 15:22 11/20/21 16:00 Temperature 97.7 F Pulse Rate 77 70 Respiratory Rate 18 Blood Pressure 101/50 L Pulse Oximetry 89 L 92 11/20/21 20:00 11/20/21 21:50 11/21/21 01:51 Temperature 97.7 F Pulse Rate 68 Respiratory Rate 18 Blood Pressure 97/65 L Pulse Oximetry 95 100 96 11/21/21 06:00 Temperature 97.8 F Pulse Rate 65 Respiratory Rate 18 Blood Pressure 100/60 Pulse Oximetry 95 Intake/Output Intake/Output: Intake & Output 11/18/21 11/19/21 11/20/21 11/21/21 23:59 23:59 23:59 23:59 Intake Total 1970 700 Output Total 550 1400 Balance -550 570 700 Meds/Results Medications: Active Medications Generic Name Dose Route Start Last Admin Trade Name Freq PRN Reason Stop Dose Admin Albuterol 1 - 2 puff 11/20/21 00:39 Albuterol Sulfate (*Sp) Aerosol 1 Puff INHALATION Q4-6H PRN shortness of breath or wheezing Atorvastatin Calcium 40 mg 11/20/21 09:00 11/20/21 09
[2021-11-21] MEDS: UMECLIDINIUM/VILANTEROL 62.5-25 MCG ELLIPTA 1 PUFF INHALATION (07:55)
[2021-11-21 08:04] LABS: Hematocrit 24.8 % (37.0-47.0); Hemoglobin 7.2 g/dL (12.0-15.0); Mean Corpuscular Hemoglobin 21.1 pg (26-34); Mean Corpuscular Volume 72.7 fl (80-100); Mean Platelet Volume 10.7 fl (7.4-10.4); Platelet Count Result 318 k/mm3 (150-375); Red Blood Count 3.41 M/mm3 (4.2-5.4); Red Cell Distribution Width 21.3 % (11.5-14.5)
[2021-11-21 08:24] LABS: Anion Gap 11 mmol/L (8-16); Blood Urea Nitrogen 47 mg/dL (7-17); Calcium 8.9 mg/dL (8.4-10.2); Carbon Dioxide 26 mmol/L (22-30); Chloride 101 mmol/L (98-107); Estimated CRCL calculation 44 ml/min; Estimated Glomerular Filt Rate 32; Glucose 117 mg/dL (65-110); Potassium 3.8 mmol/L (3.4-5.0); Sodium 138 mmol/L (137-145)
[2021-11-21] MEDS: ATORVASTATIN 40 MG TABLET PO (08:31)
[2021-11-21] MEDS: FUROSEMIDE INJ 40 MG/4 ML VIAL IV PUSH ×2 (08:31→20:34)
[2021-11-21] MEDS: PANTOPRAZOLE 40 MG TABLET PO ×2 (08:31→17:05)
[2021-11-21] MEDS: GABAPENTIN 100 MG CAPSULE PO ×2 (08:31→17:05)
[2021-11-21] MEDS: POLYSACCHARIDE IRON COMPLEX 150 MG CAPSULE PO ×2 (08:31→17:06)
[2021-11-21] MEDS: EZETIMIBE 10 MG TABLET PO (08:31)
[2021-11-21 08:47] LABS: Glucose Point of Care 129 mg/dl (65-105)
[2021-11-21 10:08] LABS: Phosphorus 4.5 mg/dL (2.5-4.5)
[2021-11-21 10:18] LABS: NT Pro B Type Natriuretic Pept 3690 pg/mL (5-100)
[2021-11-21 11:49] LABS: Glucose Point of Care 130 mg/dl (65-105)
--- NOTE | 2021-11-21 13:03 | PM.CNNEP ---
Assessment and Plan Assessment and plan (1) SAMARA (acute kidney injury): Code(s): N17.9 - Acute kidney failure, unspecified Status: Acute Assessment and Plan: as noted on admission suspect multifactorial: CHF exacerbation relative hypotension cardiorenal syndrome (and associated chronic prerenal azotemia) severe pulmonary HTN valvular heart disease anemia relatively stable at this time check urine electrolytes, urine eosinophils, and renal ultrasound follow trend of renal function and UOP (2) CKD (chronic kidney disease): Code(s): N18.9 - Chronic kidney disease, unspecified Status: Acute Assessment and Plan: creatinine has fluctuated ~ 0.9 - 1.3mg/dl in the last year likely due to HTN, DM, vascular disease, and CHF with necessit of diuretic therapy (3) Acute exacerbation of CHF (congestive heart failure): Qualifiers: Heart failure type: systolic Qualified Code(s): I50.23 - Acute on chronic systolic (congestive) heart failure Code(s): I50.9 - Heart failure, unspecified Status: Acute Assessment and Plan: Cardiology following on IV diuretic therapy maximize efforts to optimize blood pressure urine output seems somewhat limited in the last 24 hours consider IV albumin chased by IV diuretics (but not sure how well this would work since last albumin was in normal range) perhaps diuretic gtt is an option add dopamine versus dobutamine to help with hemodynamics which might help with diuresis (would defer this decision to Cardiology) follow trend of diuresis and I/Os over the 24 hours (4) Anemia: Code(s): D64.9 - Anemia, unspecified Status: Chronic Assessment and Plan: some what of a chronic issue possibly worsened by acute illness consider PRBC transfusion given #3(?) follow trend of H/H (5) Hypertension: Code(s): I10 - Essential (primary) hypertension Status: Chronic Assessment and Plan: not an issue at this time BP on the soft/relatively low at this time follow trend of hemodynamics (6) Diabetes mellitus: Qualifiers: Diabetes mellitus complication status: with hyperglycemia 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 History of Present Illness Reason for Consult Consult date: 11/21/21 Reason for consult: acute renal failure (on chronic kidney disease) Chief Complaint Chief complaint: CHF acute exacerbation/pulmonary edema History of Present Illness Narrative: The patient is a 61-year-old female with a past medical history as outlined below who presented to [facility] Emergency room via EMS for further evaluation of shortness of breath. Over the past week to 10 days, the patient has noticed her shortness of breath has progressively worsened to the point where simple activities make her short of breath and she has sometime short of breath at rest as well. In association with the symptoms, she has noticed increasing swelling /edema in her lower extremities that has progressively worsened up to the flanks of her legs. Initially, she thought the symptoms would improve with supportive therapy but they have progressively worsened to the point where she called EMS because her shortness of breath was quite severe. Upon arrival of EMS, her oxygen saturations reportedly 70% on her usual baseline 4 L of oxygen. She was switched over to a non-rebreather mask which did help improve her oxygen saturations. She was subsequently transferred to the emergency room. Next Workup and evaluation emergency room demonstrated pain to be hypoxic but she was abl
--- NOTE | 2021-11-21 13:03 | P.CONNP_ITS ---
Assessment and Plan Assessment and plan (1) SAMARA (acute kidney injury): Code(s): N17.9 - Acute kidney failure, unspecified Status: Acute Assessment and Plan: * as noted on admission * suspect multifactorial: * CHF exacerbation * relative hypotension * cardiorenal syndrome (and associated chronic prerenal azotemia) * severe pulmonary HTN * valvular heart disease * anemia * relatively stable at this time * check urine electrolytes, urine eosinophils, and renal ultrasound * follow trend of renal function and UOP (2) CKD (chronic kidney disease): Code(s): N18.9 - Chronic kidney disease, unspecified Status: Acute Assessment and Plan: * creatinine has fluctuated ~ 0.9 - 1.3mg/dl in the last year * likely due to HTN, DM, vascular disease, and CHF with necessit of diuretic therapy (3) Acute exacerbation of CHF (congestive heart failure): Qualifiers: Heart failure type: systolic Qualified Code(s): I50.23 - Acute on chronic systolic (congestive) heart failure Code(s): I50.9 - Heart failure, unspecified Status: Acute Assessment and Plan: * Cardiology following * on IV diuretic therapy * maximize efforts to optimize blood pressure * urine output seems somewhat limited in the last 24 hours * consider IV albumin chased by IV diuretics (but not sure how well this would work since last albumin was in normal range) * perhaps diuretic gtt is an option * add dopamine versus dobutamine to help with hemodynamics which might help with diuresis (would defer this decision to Cardiology) * follow trend of diuresis and I/Os over the 24 hours (4) Anemia: Code(s): D64.9 - Anemia, unspecified Status: Chronic Assessment and Plan: * some what of a chronic issue * possibly worsened by acute illness * consider PRBC transfusion given #3(?) * follow trend of H/H (5) Hypertension: Code(s): I10 - Essential (primary) hypertension Status: Chronic Assessment and Plan: * not an issue at this time * BP on the soft/relatively low at this time * follow trend of hemodynamics (6) Diabetes mellitus: Qualifiers: Diabetes mellitus complication status: with hyperglycemia Diabetes mellitus half-way insulin use: without half-way use Diabetes mellitus type: type 2 Qualified Code(s): E11.65 - Type 2 diabetes mellitus with hyperglycemia Code(s): E11.9 - Type 2 diabetes mellitus without complications Status: Chronic Assessment and Plan: * follow accuchecks * glycemic control Will continue to follow. History of Present Illness Reason for Consult Consult date: 11/21/21 Reason for consult: acute renal failure (on chronic kidney disease) Chief Complaint Chief complaint: CHF acute exacerbation/pulmonary edema History of Present Illness Narrative: The patient is a 61-year-old female with a past medical history as outlined below who presented to [facility] Emergency room via EMS for further evaluation of shortness of breath. Over the past week to 10 days, the patient has noticed her shortness of breath has progressively worsened to the point where simple activities make her short of breath and she has sometime short of breath at rest as well. In association with the symptoms, she has noticed increasing swelling /edema in her lower extremities that has progressively worsened up to the flanks of her legs. Initially, she thought the symptoms would improve with supportive therapy but they have
[2021-11-21 13:13] LABS: Alveolar/Arterial O2 Gradient 577.1 mmHg; Base Excess ABG 3.8 mEq/l (+/-2.0); Fractional Inspired Oxygen 100 %; HCO3 ABG 29.5 mEq/l (22.0-26.0); Oxygen Content ABG 11.3 %vol (16.0-22.0); Oxyhemoglobin 94.5 % THb (90.0-100.0); PCO2 ABG 51.3 mmHg (35.0-45.0); PO2 ABG 84.6 mmHg (80.0-100.0); PO2 FiO2 Ratio Arterial Blood 0.85 %; Total Hemoglobin 8.4 g/dL (12.0-18.0); pH ABG 7.378 (7.350-7.450)
[2021-11-21 13:14] LABS: Device HIGH FLOW NASAL CANN; Modified Allen's Test Pass; Site Drawn RIGHT RADIAL
[2021-11-21 14:38] LABS: SARS-CoV-2 RNA PCR Negative
[2021-11-21] MEDS: SODIUM CHLORIDE 0.9% IV 250 ML 30 ML IV CONT (15:58)
[2021-11-21] MEDS: FUROSEMIDE INJ 40 MG/4 ML VIAL 20 MG IV PUSH (15:59)
--- NOTE | 2021-11-21 15:59 | PM.IMPN ---
Progress Note: A&P Assessment and Plan (1) Acute exacerbation of congestive heart failure: Code(s): I50.9 - Heart failure, unspecified Status: Acute Assessment and Plan: Continue Lasix [address] Hopkins following and diuresing patient, treating cardiomyopathy/HTN/CHF Strict I/O Daily weights Check ECHO - showed MV severe calcification, EF 65-70%, moderate TV regurg, severe pulm HTN with paP 69, right atrial pressure elevated. CT scan showed 10 x 6 mm left lower lobe nodule with macroscopic fat attenuation unchanged since 09/08/2019 consistent with a hamartoma. Smooth septal line thickening at the bilateral lung bases consistent with mild pulmonary edema. Enlargement of the central pulmonary arteries consistent with pulmonary arterial hypertension. Cardiomegaly with prominent right atrial enlargement. Atherosclerotic coronary artery calcification. Tiny pericardial effusion. No pleural effusion. BNP 3690, improved from 2 days ago BNP 4280 on 11/19/21. ?Baseline BNP? (02/08/21 BNP 282) (2) Renal failure: Code(s): N19 - Unspecified kidney failure Status: Acute Assessment and Plan: Creatinine worsening 1.9, from 1.3, most likely due to aggressive diuresis, may be related to congestion and poor output due to CHF Monitor her renal function closely while diuresing Avoid nephrotoxins Appreciate nephrology consult Keep MAPS >65 , BPs stable today 100/60 (3) Chronic anemia: Code(s): D64.9 - Anemia, unspecified Status: Acute Assessment and Plan: Hemoglobin is stable but remains in the mid sevens. Dropped to 7.2 today Continue iron supplementation Also continue PPI as she was noted to have gastritis on EGD in September 2021 She is on iron supplementation and continues to have significant anemia (hgb 7.2 today), combined with her significantly increased O2 requirement and soft BPs, ordered 1 unit RBC with 20 lasix to help improve her Hgb level and O2 carrying capacity. transfusing as needed. (4) Hypertension: Qualifiers: Hypertension type: essential hypertension Qualified Code(s): I10 - Essential (primary) hypertension Code(s): I10 - Essential (primary) hypertension Status: Acute Assessment and Plan: Blood pressures stable, soft sometimes, SBPs 90-100s. Monitor closely while diuresing holding norvasc and losartan at this time. (5) COPD (chronic obstructive pulmonary disease): Qualifiers: COPD type: unspecified COPD Qualified Code(s): J44.9 - Chronic obstructive pulmonary disease, unspecified Code(s): J44.9 - Chronic obstructive pulmonary disease, unspecified Status: Chronic Assessment and Plan: possible acute exacerbation today with CO2 retention and increased O2 requirement ordered mucinex and inhaler scheduled. appreciate pulmonary consult unable to continue her non-formulary maintenance inhalers She was on 5 L NC this morning, desaturated during her meal, and was placed on 15 L high-flow nasal cannula. Despite diuresis, she is having increasing O2 requirement ABG was near normal - some CO2 retention. RT is working to wean down her O2 requirement again (6) Diabetes mellitus: Qualifiers: Diabetes mellitus complication status: with hyperglycemia Diabetes mellitus termite helper insulin use: without termite helper use Diabetes mellitus type: type 2 Qualified Code(s): E11.65 - Type 2 diabetes mellitus with hyperglycemia Code(s): E11.9 - Type 2 diabetes mellitus without complications Status: Chronic Assessment and Plan: Continue sliding scale insulin, Accu-Cheks, and hypoglycemic protocol Monitor follow accuchecks glycemic control controlled at this time, glucose 120s today (7) Generalized weakness: Code(s): R53.1 - Weakness Status: Acute Assessment and Plan: Related to deconditioning, weight gain, and chronic comorbidities PT/OT consulted Patient needs significant P
[2021-11-21] MEDS: ALBUTEROL SULFATE (*SP) AEROSOL 1 PUFF INHALATION ×2 (16:24→20:05)
--- NOTE | 2021-11-21 16:24 | PCRCNOTE ---
Window of time for administration has passed. See next scheduled administration.
[2021-11-21 18:33] LABS: Glucose Point of Care 300 mg/dl (65-105)
[2021-11-21] MEDS: guaiFENesin 12 HR 600 MG TABCR 1200 MG PO (20:34)
[2021-11-21 21:20] LABS: Hematocrit 28.6 % (37.0-47.0); Hemoglobin 8.2 g/dL (12.0-15.0); Immature Platelet Fraction Pct 5.2 % (0.9-11.2); Mean Corpuscular HGB Conc 28.7 g/dl (32-36); Mean Corpuscular Hemoglobin 21.9 pg (26-34); Mean Corpuscular Volume 76.3 fl (80-100); Mean Platelet Volume 11.2 fl (7.4-10.4); Platelet Count Result 298 k/mm3 (150-375); Red Blood Count 3.75 M/mm3 (4.2-5.4); Red Cell Distribution Width 21.6 % (11.5-14.5); White Blood Count 8.3 K/mm3 (4.5-10.0)
[2021-11-21 21:46] LABS: Iron 39 ug/dL (37-170)
[2021-11-21 21:57] LABS: Percent Iron Saturation 10 % (20-50)
[2021-11-21 22:16] LABS: Glucose Point of Care 119 mg/dl (65-105)
[2021-11-22] VITALS (12 sets, daily range): BP systolic 95–105; BP diastolic 58–65; PULSE 64–77; RESP 18–20; TEMP 36.1–36.6; O2SAT 90–98
[2021-11-22] MEDS: ALBUTEROL SULFATE (*SP) AEROSOL 1 PUFF INHALATION ×4 (01:26→20:23)
--- NOTE | 2021-11-22 07:38 | PM.PNCARD ---
Progress Note: A&P Assessment and Plan (1) Acute exacerbation of CHF (congestive heart failure): Qualifiers: Heart failure type: systolic Qualified Code(s): I50.23 - Acute on chronic systolic (congestive) heart failure Code(s): I50.9 - Heart failure, unspecified Status: Acute Assessment and Plan: She is third spacing in lungs, abdomen, and legs and low intravascular volume primarily due to pulmonary hypertension a. Volume overload due to a combination of acute on chronic mild diastolic heart failure, worsening CKD due to cardiorenal syndrome, severe pulmonary hypertension, high output failure from anemia. Difficult to keep euvolemic due to cardiorenal syndrome. Change Lasix 40 mg IV BID to 20 mg IV Q8HR due to hypotension with Lasix. If this does not work then consider lasix drip or renal dose dopamine to enhance diuresis. She does not have cardiomyopathy or valvular heart disease as a cause. (2) Chronic anemia: Code(s): D64.9 - Anemia, unspecified Status: Acute Assessment and Plan: Microcytic anemia suggests blood loss or iron deficiency anemia. Workup and manage anemia. Received 1 unit PRBC transfusion. (3) Pulmonary hypertension: Code(s): I27.20 - Pulmonary hypertension, unspecified Status: Acute Assessment and Plan: Probably due to a combination of GUANACO and COPD. (4) SAMARA (acute kidney injury): Code(s): N17.9 - Acute kidney failure, unspecified Status: Acute Assessment and Plan: Monitor renal function and electrolytes closely and replace as needed. (5) Hyperlipidemia: Qualifiers: Hyperlipidemia type: unspecified Qualified Code(s): E78.5 - Hyperlipidemia, unspecified Code(s): E78.5 - Hyperlipidemia, unspecified Status: Chronic Assessment and Plan: On Atorvastatin, Zetia. (6) COPD (chronic obstructive pulmonary disease): Qualifiers: COPD type: unspecified COPD Qualified Code(s): J44.9 - Chronic obstructive pulmonary disease, unspecified Code(s): J44.9 - Chronic obstructive pulmonary disease, unspecified Status: Chronic (7) Obstructive sleep apnea: Code(s): G47.33 - Obstructive sleep apnea (adult) (pediatric) Status: Acute Subjective Date/time seen: 11/22/21 07:38 Reports has mild sob on face mask oxygen. No chest pains. Exam Const: General: cooperative, healthy appearing and comfortable Nutritional Appearance: obese Resp: Auscultation: no crackles, no rales, no rhonchi, no wheezes and diminished lung sounds Cardio: Jugular venous distension: no JVD Rate: regular rate Rhythm: regular rhythm Heart sounds: no murmurs GI: GI Palp: No abdominal tenderness and Yes Soft to palpation Neuro: General: oriented to person, oriented to place and oriented to time Extrem: Right lower extremity: edema Left lower extremity: edema Other: Mild-mod edema of both legs Objective Data Vital Signs Vital Signs: Vital Signs - 24 hr 11/21/21 08:00 11/21/21 12:00 11/21/21 14:00 Temperature 97.2 F L Pulse Rate 68 68 66 Respiratory Rate 18 20 Blood Pressure 93/59 L Pulse Oximetry 95 92 11/21/21 16:00 11/21/21 16:22 11/21/21 16:38 Temperature 96.8 F L 96.8 F L Pulse Rate 64 66 61 Respiratory Rate 21 H 22 H Blood Pressure 93/60 L 93/65 L Pulse Oximetry 100 94 11/21/21 17:38 11/21/21 18:38 11/21/21 20:00 Temperature 96.7 F L 97.6 F Pulse Rate 67 71 66 Respiratory Rate 19 18 Blood Pressure 95/56 L 109/60 Pulse Oximetry 100 100 11/21/21 20:05 11/21/21 20:20 11/21/21 22:00 Temperature 97.2 F L 97.2 F L Pulse Rate 67 66 66 Respiratory Rate 18 18 Blood Pressure 85/54 L 85/54 L Pulse Oximetry 100 94 94 11/22/21 00:00 11/22/21 01:29 11/22/21 04:00 Temperature Pulse Rate 73 64 73 Respiratory Rate Blood Pressure Pulse Oximetry 11/22/21 06:00 Temperature 97.7 F Pulse Rate 77 Respiratory Rate 20 Blood Pressure 104/6
[2021-11-22] MEDS: UMECLIDINIUM/VILANTEROL 62.5-25 MCG ELLIPTA 1 PUFF INHALATION (08:23)
[2021-11-22 08:41] LABS: Alanine Aminotransferase 8 U/L (4-35); Albumin Level 3.7 g/dL (3.5-5.1); Alkaline Phosphatase 114 U/L (38-126); Anion Gap 12 mmol/L (8-16); Aspartate Amino Transferase 35 U/L (14-36); Bilirubin,Total 0.8 mg/dL (0.2-1.3); Blood Urea Nitrogen 48 mg/dL (7-17); Calcium 9.1 mg/dL (8.4-10.2); Carbon Dioxide 29 mmol/L (22-30); Chloride 100 mmol/L (98-107); Estimated CRCL calculation 44 ml/min; Estimated Glomerular Filt Rate 32; Glucose 114 mg/dL (65-110); Potassium 3.9 mmol/L (3.4-5.0); Sodium 141 mmol/L (137-145)
[2021-11-22] MEDS: PANTOPRAZOLE 40 MG TABLET PO ×2 (08:52→17:17)
[2021-11-22] MEDS: guaiFENesin 12 HR 600 MG TABCR 1200 MG PO ×2 (08:52→21:11)
[2021-11-22] MEDS: EZETIMIBE 10 MG TABLET PO (08:52)
[2021-11-22] MEDS: ATORVASTATIN 40 MG TABLET PO (08:52)
[2021-11-22] MEDS: POLYSACCHARIDE IRON COMPLEX 150 MG CAPSULE PO ×2 (08:53→17:17)
[2021-11-22] MEDS: GABAPENTIN 100 MG CAPSULE PO ×3 (08:53→17:17)
[2021-11-22] MEDS: FUROSEMIDE INJ 40 MG/4 ML VIAL 20 MG IV PUSH ×2 (08:57→15:17)
[2021-11-22 09:02] LABS: Basophils Percent Auto 0.2 % (0.2-1.2); Eosinophils Absolute Auto 0.2 K/mm3 (0-0.3); Hematocrit 26.5 % (37.0-47.0); Hemoglobin 7.7 g/dL (12.0-15.0); Immature Granulocyte Absolute 0.03 K/mm3 (0.00-0.031); Immature Granulocyte Percent A 0.4 % (0-0.5); Immature Platelet Fraction Pct 4.7 % (0.9-11.2); Lymphocytes Absolute Auto 0.76 K/mm3 (0.9-3.2); Lymphocytes Percent Auto 8.9 % (18.3-44.2); Mean Corpuscular HGB Conc 29.1 g/dl (32-36); Mean Corpuscular Hemoglobin 21.8 pg (26-34); Mean Corpuscular Volume 74.9 fl (80-100); Mean Platelet Volume 10.3 fl (7.4-10.4); Monocytes Absolute Auto 0.5 K/mm3 (0.1-0.6); Monocytes Percent Auto 6.1 % (2.6-8.5); Neutrophils Percent Auto 82.4 % (45.5-73.1); Platelet Count Result 286 k/mm3 (150-375); Red Blood Count 3.54 M/mm3 (4.2-5.4); Red Cell Distribution Width 21.4 % (11.5-14.5); White Blood Count 8.5 K/mm3 (4.5-10.0)
[2021-11-22 09:26] LABS: Glucose Point of Care 124 mg/dl (65-105)
--- NOTE | 2021-11-22 09:45 | PM.IMPN ---
Progress Note: A&P Assessment and Plan (1) Acute exacerbation of congestive heart failure: Code(s): I50.9 - Heart failure, unspecified Status: Acute Assessment and Plan: Dr. Hopkins changed to 20mg IV Q8hr Dr. Hopkins following and diuresing patient, treating cardiomyopathy/HTN/CHF Strict I/O Daily weights Check ECHO - showed MV severe calcification, EF 65-70%, moderate TV regurg, severe pulm HTN with paP 69, right atrial pressure elevated. CT scan showed 10 x 6 mm left lower lobe nodule with macroscopic fat attenuation unchanged since 09/08/2019 consistent with a hamartoma. Smooth septal line thickening at the bilateral lung bases consistent with mild pulmonary edema. Enlargement of the central pulmonary arteries consistent with pulmonary arterial hypertension. Cardiomegaly with prominent right atrial enlargement. Atherosclerotic coronary artery calcification. Tiny pericardial effusion. No pleural effusion. BNP 3690, improved from 2 days ago BNP 4280 on 11/19/21 (2) Renal failure: Code(s): N19 - Unspecified kidney failure Status: Acute Assessment and Plan: Creatinine worsening 1.9, from 1.3, most likely due to aggressive diuresis, may be related to congestion and poor output due to CHF Monitor her renal function closely while diuresing Avoid nephrotoxins Appreciate nephrology consult Keep MAPS >65 , BPs stable today 105/58 (3) Chronic anemia: Code(s): D64.9 - Anemia, unspecified Status: Acute Assessment and Plan: Hemoglobin is stable but remains in the mid sevens 7.7 today Continue iron supplementation Also continue PPI as she was noted to have gastritis on EGD in September 2021 Iron supplementation and continues anemia, combined with her significantly increased O2 requirement and soft BPs, 1 unit RBC with 20 lasix 11/21/21 transfusing as needed. (4) Hypertension: Qualifiers: Hypertension type: essential hypertension Qualified Code(s): I10 - Essential (primary) hypertension Code(s): I10 - Essential (primary) hypertension Status: Acute Assessment and Plan: Blood pressures stable, soft sometimes, SBPs 90-100s. Monitor closely while diuresing holding norvasc and losartan at this time. (5) COPD (chronic obstructive pulmonary disease): Qualifiers: COPD type: unspecified COPD Qualified Code(s): J44.9 - Chronic obstructive pulmonary disease, unspecified Code(s): J44.9 - Chronic obstructive pulmonary disease, unspecified Status: Chronic Assessment and Plan: possible acute exacerbation today with CO2 retention and increased O2 requirement ordered mucinex and inhaler scheduled. appreciate pulmonary consult unable to continue her non-formulary maintenance inhalers She was on 5 L NC this morning, desaturated during her meal, and was placed on 15 L high-flow nasal cannula. Despite diuresis, she is having increasing O2 requirement ABG was near normal - some CO2 retention. 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 insulin use: without jail use Diabetes mellitus complication status: with hyperglycemia Qualified Code(s): E11.65 - Type 2 diabetes mellitus with hyperglycemia Code(s): E11.9 - Type 2 diabetes mellitus without complications Status: Chronic Assessment and Plan: Continue sliding scale insulin, Accu-Cheks, and hypoglycemic protocol Monitor follow accuchecks glycemic control controlled at this time, glucose 110s today (7) Generalized weakness: Code(s): R53.1 - Weakness Status: Acute Assessment and Plan: Related to deconditioning, weight gain, and chronic comorbidities PT/OT consulted Patient needs significant PT/OT before returning to home/[place] precautions (8) Hypokalemia:
--- NOTE | 2021-11-22 09:45 | P.PNIM_ITS ---
Progress Note: A&P Assessment and Plan (1) Acute exacerbation of congestive heart failure: Code(s): I50.9 - Heart failure, unspecified Status: Acute Assessment and Plan: * Dr. Hopkins changed to 20mg IV Q8hr * Dr. Hopkins following and diuresing patient, treating cardiomyopathy/HTN/CHF * Strict I/O * Daily weights * Check ECHO - showed MV severe calcification, EF 65-70%, moderate TV regurg, severe pulm HTN with paP 69, right atrial pressure elevated. * CT scan showed 10 x 6 mm left lower lobe nodule with macroscopic fat attenuation unchanged since 09/08/2019 consistent with a hamartoma. Smooth septal line thickening at the bilateral lung bases consistent with mild pulmonary edema. Enlargement of the central pulmonary arteries consistent with pulmonary arterial hypertension. Cardiomegaly with prominent right atrial enlargement. Atherosclerotic coronary artery calcification. Tiny pericardial effusion. No pleural effusion. * BNP 3690, improved from 2 days ago BNP 4280 on 11/19/21 (2) Renal failure: Code(s): N19 - Unspecified kidney failure Status: Acute Assessment and Plan: * Creatinine worsening 1.9, from 1.3, most likely due to aggressive diuresis, may be related to congestion and poor output due to CHF * Monitor her renal function closely while diuresing * Avoid nephrotoxins * Appreciate nephrology consult * Keep MAPS >65 , BPs stable today 105/58 (3) Chronic anemia: Code(s): D64.9 - Anemia, unspecified Status: Acute Assessment and Plan: * Hemoglobin is stable but remains in the mid sevens 7.7 today * Continue iron supplementation * Also continue PPI as she was noted to have gastritis on EGD in September 2021 * Iron supplementation and continues anemia, combined with her significantly inc reased O2 requirement and soft BPs, * 1 unit RBC with 20 lasix 11/21/21 * transfusing as needed. (4) Hypertension: Qualifiers: Hypertension type: essential hypertension Qualified Code(s): I10 - Essential (primary) hypertension Code(s): I10 - Essential (primary) hypertension Status: Acute Assessment and Plan: Blood pressures stable, soft sometimes, SBPs 90-100s. Monitor closely while diuresing holding norvasc and losartan at this time. (5) COPD (chronic obstructive pulmonary disease): Qualifiers: COPD type: unspecified COPD Qualified Code(s): J44.9 - Chronic obstructive pulmonary disease, unspecified Code(s): J44.9 - Chronic obstructive pulmonary disease, unspecified Status: Chronic Assessment and Plan: * possible acute exacerbation today with CO2 retention and increased O2 requirement * ordered mucinex and inhaler scheduled. * appreciate pulmonary consult * unable to continue her non-formulary maintenance inhalers * She was on 5 L NC this morning, desaturated during her meal, and was placed on 15 L high-flow nasal cannula. * Despite diuresis, she is having increasing O2 requirement * ABG was near normal - some CO2 retention. 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
[2021-11-22 09:52] LABS: Albumin Level 3.5 g/dL (3.5-5.1)
[2021-11-22 10:20] LABS: Anisocytosis 1+ (NORMAL); Hypochromasia 2+ (NORMAL); Platelet Estimate Adequate (Adequate); Poikilocytosis 1+ (NORMAL)
--- NOTE | 2021-11-22 11:31 | P.CDI_ITS ---
CDI Query Clarification Request Dr Hopkins, your problem list as acute on chronic systolic CHF but in the note below you have Acute on chronic mild diastolic heart failure . Please clarify type of acute on chronic CHF: * Diastolic * Systolic * Both systolic and diastolic * Unable to determine <Angeli Gomez RN - Last Filed: 11/22/21 11:34> Clarified Diagnosis (1) Acute exacerbation of congestive heart failure: Code(s): I50.9 - Heart failure, unspecified <Angeli Gomez RN - Last Filed: 11/22/21 11:34> Status: Acute <Angeli Gomez RN - Last Filed: 11/22/21 11:34> Assessment and Plan: Acute on chronic mild diastolic heart failure. No systolic dysfunction or systolic heart failure. <Jett Hopkins DO - Last Filed: 11/22/21 13:19>
[2021-11-22 12:22] LABS: Glucose Point of Care 115 mg/dl (65-105)
--- NOTE | 2021-11-22 15:13 | PM.PNNEP ---
Progress Note: A&P Assessment and Plan (1) SAMARA (acute kidney injury): Code(s): N17.9 - Acute kidney failure, unspecified Status: Acute Assessment and Plan: as noted on admission suspect multifactorial: CHF exacerbation relative hypotension cardiorenal syndrome (and associated chronic prerenal azotemia) severe pulmonary HTN valvular heart disease anemia relatively stable at this time follow-up on urine electrolytes, urine eosinophils, and renal ultrasound follow trend of renal function and UOP (2) CKD (chronic kidney disease): Code(s): N18.9 - Chronic kidney disease, unspecified Status: Acute Assessment and Plan: creatinine has fluctuated ~ 0.9 - 1.3mg/dl in the last year likely due to HTN, DM, vascular disease, and CHF with necessity of diuretic therapy (3) Acute exacerbation of CHF (congestive heart failure): Qualifiers: Heart failure type: systolic Qualified Code(s): I50.23 - Acute on chronic systolic (congestive) heart failure Code(s): I50.9 - Heart failure, unspecified Status: Acute Assessment and Plan: Cardiology following on IV diuretic therapy maximize efforts to optimize blood pressure urine output seems somewhat limited in the last 24 hours consider IV albumin chased by IV diuretics (but not sure how well this would work since last albumin was in normal range) perhaps diuretic gtt is an option consider adding dopamine to help with hemodynamics which might help with diuresis (would defer this decision to Cardiology) follow trend of diuresis and I/Os over the 24 hours (4) Anemia: Code(s): D64.9 - Anemia, unspecified Status: Chronic Assessment and Plan: some what of a chronic issue possibly worsened by acute illness consider PRBC transfusion given #3(?) follow trend of H/H (5) Hypertension: Code(s): I10 - Essential (primary) hypertension Status: Chronic Assessment and Plan: not an issue at this time BP on the soft/relatively low at this time follow trend of hemodynamics (6) Diabetes mellitus: Qualifiers: Diabetes mellitus complication status: with hyperglycemia Diabetes mellitus detention insulin use: without detention use Diabetes mellitus type: type 2 Qualified Code(s): E11.65 - Type 2 diabetes mellitus with hyperglycemia Code(s): E11.9 - Type 2 diabetes mellitus without complications Status: Chronic Assessment and Plan: follow accuchecks glycemic control Will continue to follow. Subjective Date/time seen: 11/22/21 15:13 Does not appear in any acute distress but requiring significant oxygen support to maintain oxygen saturations; making urine output with relative stability in creatinine but still remains in positive fluid balance; mild shortness of breath voiced at the time of my visit. Exam Narrative: General: WD/WN AA female in NAD Heart: normal S1 and S2; no rub Lungs: decreased with bibasilar crackles Abdomen: soft, nontender, nondistended, positive bowel sounds Extremities: no cyanosis or clubbing; 2+ edema Skin: warm and dry Objective Data Vital Signs Vital Signs: Vital Signs Temp Pulse Resp BP Pulse Ox 11/22/21 12:00 74 11/22/21 11:09 90 11/22/21 08:26 94 11/22/21 08:00 73 11/22/21 06:00 36.5 C 77 20 104/62 94 11/22/21 04:00 73 11/22/21 01:29 64 11/22/21 00:00 73 11/21/21 22:00 36.2 C L 66 18 85/54 L 94 11/21/21 20:20 36.2 C L 66 18 85/54 L 94 11/21/21 20:05 67 100 11/21/21 20:00 66 11/21/21 18:38 36.4 C 71 18 109/60 100 11/21/21 17:38 35.9 C L 67 19 95/56 L 100 11/21/21 16:38 36.0 C L 61 22 H 93/65 L 94 11/21/21 16:22 36.0 C L 66 21 H 93/60 L 100 11/21/21 16:00 64 Intake/Output Intake/Output: Intake & Output 11/19/21 11/20/21 11/21/21 11/22/21 23:59 23:59 23:59 23:59 Int
--- NOTE | 2021-11-22 15:13 | P.PNNP_ITS ---
Progress Note: A&P Assessment and Plan (1) SAMARA (acute kidney injury): Code(s): N17.9 - Acute kidney failure, unspecified Status: Acute Assessment and Plan: * as noted on admission * suspect multifactorial: * CHF exacerbation * relative hypotension * cardiorenal syndrome (and associated chronic prerenal azotemia) * severe pulmonary HTN * valvular heart disease * anemia * relatively stable at this time * follow-up on urine electrolytes, urine eosinophils, and renal ultrasound * follow trend of renal function and UOP (2) CKD (chronic kidney disease): Code(s): N18.9 - Chronic kidney disease, unspecified Status: Acute Assessment and Plan: * creatinine has fluctuated ~ 0.9 - 1.3mg/dl in the last year * likely due to HTN, DM, vascular disease, and CHF with necessity of diuretic therapy (3) Acute exacerbation of CHF (congestive heart failure): Qualifiers: Heart failure type: systolic Qualified Code(s): I50.23 - Acute on chronic systolic (congestive) heart failure Code(s): I50.9 - Heart failure, unspecified Status: Acute Assessment and Plan: * Cardiology following * on IV diuretic therapy * maximize efforts to optimize blood pressure * urine output seems somewhat limited in the last 24 hours * consider IV albumin chased by IV diuretics (but not sure how well this would work since last albumin was in normal range) * perhaps diuretic gtt is an option * consider adding dopamine to help with hemodynamics which might help with diuresis (would defer this decision to Cardiology) * follow trend of diuresis and I/Os over the 24 hours (4) Anemia: Code(s): D64.9 - Anemia, unspecified Status: Chronic Assessment and Plan: * some what of a chronic issue * possibly worsened by acute illness * consider PRBC transfusion given #3(?) * follow trend of H/H (5) Hypertension: Code(s): I10 - Essential (primary) hypertension Status: Chronic Assessment and Plan: * not an issue at this time * BP on the soft/relatively low at this time * follow trend of hemodynamics (6) Diabetes mellitus: Qualifiers: Diabetes mellitus complication status: with hyperglycemia Diabetes mellitus detention insulin use: without detention use Diabetes mellitus type: type 2 Qualified Code(s): E11.65 - Type 2 diabetes mellitus with hyperglycemia Code(s): E11.9 - Type 2 diabetes mellitus without complications Status: Chronic Assessment and Plan: * follow accuchecks * glycemic control Will continue to follow. Subjective Date/time seen: 11/22/21 15:13 Does not appear in any acute distress but requiring significant oxygen support to maintain oxygen saturations; making urine output with relative stability in creatinine but still remains in positive fluid balance; mild shortness of breath voiced at the time of my visit. Exam Narrative: General: WD/WN AA female in NAD Heart: normal S1 and S2; no rub Lungs: decreased with bibasilar crackles Abdomen: soft, nontender, nondistended, positive bowel sounds Extremities: no cyanosis or clubbing; 2+ edema Skin: warm and dry Objective Data Vital Signs Vital Signs: Vital Signs Temp Pulse Resp BP Pulse Ox 11/22/21 12:00 74 11/22/21 11:09 90 11/22/21 08:26 94 11/22/21 08:00 73
[2021-11-22 16:48] LABS: Glucose Point of Care 113 mg/dl (65-105)
[2021-11-22] MEDS: FUROSEMIDE INJ 40 MG/4 ML VIAL IV PUSH (21:11)
[2021-11-23] VITALS (11 sets, daily range): BP systolic 94–113; BP diastolic 61–71; PULSE 54–75; RESP 16–18; TEMP 36.1–36.6; O2SAT 90–100
[2021-11-23 00:46] LABS: Glucose Point of Care 116 mg/dl (65-105)
[2021-11-23] MEDS: ALBUTEROL SULFATE (*SP) AEROSOL 1 PUFF INHALATION ×4 (01:55→21:54)
[2021-11-23] MEDS: FUROSEMIDE INJ 40 MG/4 ML VIAL IV PUSH ×3 (06:15→20:20)
--- NOTE | 2021-11-23 07:37 | PM.PNCARD ---
Progress Note: A&P Assessment and Plan (1) Acute exacerbation of congestive heart failure: Code(s): I50.9 - Heart failure, unspecified Status: Acute Assessment and Plan: Acute on chronic mild diastolic heart failure. No systolic dysfunction or systolic heart failure and no valvular heart disease. She is third spacing in lungs, abdomen, and legs and low intravascular volume primarily due to pulmonary hypertension. Volume overload due to a combination of acute on chronic mild diastolic heart failure, worsening CKD due to cardiorenal syndrome, severe pulmonary hypertension, high output failure from anemia. Difficult to keep euvolemic due to cardiorenal syndrome. On Lasix 40 mg IV Q8HR. She is improving clinically with less sob and edema of legs. If this does not work then consider lasix drip or renal dose dopamine to enhance diuresis. Wean oxygen off as tolerated. (2) CKD (chronic kidney disease): Code(s): N18.9 - Chronic kidney disease, unspecified Status: Acute Assessment and Plan: Monitor renal function and electrolytes closely and replace as needed. Nephrology following. (3) Chronic anemia: Code(s): D64.9 - Anemia, unspecified Status: Acute Assessment and Plan: Microcytic anemia suggests blood loss or iron deficiency anemia. Workup and manage anemia. Received 1 unit PRBC transfusion. (4) Chronic obstructive pulmonary disease: Code(s): J44.9 - Chronic obstructive pulmonary disease, unspecified Status: Acute (5) Pulmonary hypertension: Code(s): I27.20 - Pulmonary hypertension, unspecified Status: Acute Assessment and Plan: Probably due to a combination of GUANACO and COPD, and diastolic dysfunction. (6) Obstructive sleep apnea: Code(s): G47.33 - Obstructive sleep apnea (adult) (pediatric) Status: Acute Subjective Date/time seen: 11/23/21 07:37 Reports breathing is improved on Lasix. No chest pains. Exam Const: General: cooperative, healthy appearing and comfortable Nutritional Appearance: obese Resp: Auscultation: no crackles, no rales, no rhonchi, no wheezes and diminished lung sounds Cardio: Jugular venous distension: no JVD Rate: regular rate Rhythm: regular rhythm Heart sounds: no murmurs GI: GI Palp: No abdominal tenderness and Yes Soft to palpation Neuro: General: oriented to person, oriented to place and oriented to time Extrem: Right lower extremity: edema Left lower extremity: edema Other: Mild edema of both legs Objective Data Vital Signs Vital Signs: Vital Signs - 24 hr 11/22/21 08:00 11/22/21 08:26 11/22/21 11:09 Temperature Pulse Rate 73 Respiratory Rate Blood Pressure Pulse Oximetry 94 90 11/22/21 12:00 11/22/21 14:00 11/22/21 16:00 Temperature 97.0 F L Pulse Rate 74 73 70 Respiratory Rate 19 Blood Pressure 105/58 L Pulse Oximetry 96 11/22/21 20:00 11/22/21 21:51 11/23/21 04:30 Temperature 97.8 F 97.4 F L Pulse Rate 70 71 Respiratory Rate 18 16 Blood Pressure 95/65 L 94/66 L Pulse Oximetry 94 98 100 Intake/Output Intake/Output: Intake & Output 11/20/21 11/21/21 11/22/21 11/23/21 23:59 23:59 23:59 23:59 Intake Total 1970 2520 2090 750 Output Total 6835 437 1294 650 Balance 570 1670 490 100 Meds/Results Medications: Active Medications Generic Name Dose Route Start Last Admin Trade Name Freq PRN Reason Stop Dose Admin Albuterol 1 puff 11/21/21 14:00 11/23/21 01:55 Albuterol Sulfate (*Sp) Aerosol 1 Puff INHALATION 1 puff Q6HRT EMIR Administration Atorvastatin Calcium 40 mg 11/20/21 09:00 11/22/21 08:52 Atorvastatin 40 Mg Tablet PO 40 mg DAILY EMIR Administration Dextrose 12.5 gm 11/20/21 00:35 Dextrose 50% 25 Gm/50 Ml Syringe IV PUSH PRN PRN Hypoglycemia Protocol Ezetimibe 10 mg 11/20/21 09:00 11/22/21 08:52 Ezetimibe 10 Mg Tablet PO 10 mg DAILY EMIR Administration Furosemide 40
[2021-11-23 07:59] LABS: Basophils Percent Auto 0.4 % (0.2-1.2); Eosinophils Absolute Auto 0.2 K/mm3 (0-0.3); Eosinophils Percent Auto 2.3 % (0-4.4); Hemoglobin 7.6 g/dL (12.0-15.0); Immature Granulocyte Absolute 0.03 K/mm3 (0.00-0.031); Immature Granulocyte Percent A 0.4 % (0-0.5); Immature Platelet Fraction Pct 4.4 % (0.9-11.2); Lymphocytes Absolute Auto 0.68 K/mm3 (0.9-3.2); Lymphocytes Percent Auto 8.3 % (18.3-44.2); Mean Corpuscular HGB Conc 29.2 g/dl (32-36); Mean Corpuscular Hemoglobin 21.8 pg (26-34); Mean Corpuscular Volume 74.7 fl (80-100); Mean Platelet Volume 10.1 fl (7.4-10.4); Monocytes Absolute Auto 0.6 K/mm3 (0.1-0.6); Monocytes Percent Auto 6.9 % (2.6-8.5); Neutrophils Absolute Auto 6.7 K/mm3 (1.3-6.7); Neutrophils Percent Auto 81.7 % (45.5-73.1); Platelet Count Result 269 k/mm3 (150-375); Red Blood Count 3.48 M/mm3 (4.2-5.4); Red Cell Distribution Width 21.8 % (11.5-14.5); White Blood Count 8.2 K/mm3 (4.5-10.0)
[2021-11-23 08:19] LABS: Alanine Aminotransferase 8 U/L (4-35); Albumin Level 3.5 g/dL (3.5-5.1); Alkaline Phosphatase 111 U/L (38-126); Anion Gap 11 mmol/L (8-16); Aspartate Amino Transferase 35 U/L (14-36); Bilirubin,Total 0.9 mg/dL (0.2-1.3); Blood Urea Nitrogen 49 mg/dL (7-17); Calcium 8.8 mg/dL (8.4-10.2); Carbon Dioxide 28 mmol/L (22-30); Chloride 99 mmol/L (98-107); Estimated CRCL calculation 52 ml/min; Estimated Glomerular Filt Rate 39; Glucose 112 mg/dL (65-110); Magnesium 2.2 mg/dL (1.6-2.3); Phosphorus 4.5 mg/dL (2.5-4.5); Sodium 138 mmol/L (137-145)
[2021-11-23] MEDS: UMECLIDINIUM/VILANTEROL 62.5-25 MCG ELLIPTA 1 PUFF INHALATION (08:30)
--- NOTE | 2021-11-23 09:15 | PM.IMPN ---
Progress Note: A&P Assessment and Plan (1) Acute exacerbation of congestive heart failure: Code(s): I50.9 - Heart failure, unspecified Status: Acute Assessment and Plan: Acute diastolic exacerbation of heart failure Lasix [address] Hopkins following and diuresing patient, treating cardiomyopathy/HTN/CHF Strict I/O Daily weights Check ECHO - showed MV severe calcification, EF 65-70%, moderate TV regurg, severe pulm HTN with paP 69, right atrial pressure elevated. CT scan showed 10 x 6 mm left lower lobe nodule with macroscopic fat attenuation unchanged since 09/08/2019 consistent with a hamartoma. Smooth septal line thickening at the bilateral lung bases consistent with mild pulmonary edema. Enlargement of the central pulmonary arteries consistent with pulmonary arterial hypertension. Cardiomegaly with prominent right atrial enlargement. Atherosclerotic coronary artery calcification. Tiny pericardial effusion. No pleural effusion. BNP 3690 Trend BP is soft today (2) Renal failure: Code(s): N19 - Unspecified kidney failure Status: Acute Assessment and Plan: Creatinine is better today at 1.60 Monitor her renal function closely while diuresing Avoid nephrotoxins Appreciate nephrology consult Keep MAPS >65 , BPs stable today 113/71 (3) Chronic anemia: Code(s): D64.9 - Anemia, unspecified Status: Acute Assessment and Plan: Hemoglobin is stable but remains in the mid sevens 7.6 today Continue iron supplementation Also continue PPI as she was noted to have gastritis on EGD in September 2021 Iron supplementation and continues anemia, combined with her significantly increased O2 requirement and soft BPs, 1 unit RBC with 20 lasix 11/21/21 transfusing as needed. (4) Hypertension: Qualifiers: Hypertension type: essential hypertension Qualified Code(s): I10 - Essential (primary) hypertension Code(s): I10 - Essential (primary) hypertension Status: Acute Assessment and Plan: Blood pressures stable, soft sometimes, SBPs 90-100s. Monitor closely while diuresing holding norvasc and losartan at this time (5) COPD (chronic obstructive pulmonary disease): Qualifiers: COPD type: unspecified COPD Qualified Code(s): J44.9 - Chronic obstructive pulmonary disease, unspecified Code(s): J44.9 - Chronic obstructive pulmonary disease, unspecified Status: Chronic Assessment and Plan: possible acute exacerbation today with CO2 retention and increased O2 requirement ordered mucinex and inhaler scheduled. appreciate pulmonary consult unable to continue her non-formulary maintenance inhalers She was on 5 L NC this morning, desaturated during her meal, and was placed on 15L high-flow nasal cannula. Despite diuresis, she is having increasing O2 requirement ABG was near normal - some CO2 retention. RT is working to wean down her O2 requirement again Wonder if there is a PE (6) Diabetes mellitus: Qualifiers: Diabetes mellitus type: type 2 Diabetes mellitus detention insulin use: without terminal carman use Diabetes mellitus complication status: with hyperglycemia Qualified Code(s): E11.65 - Type 2 diabetes mellitus with hyperglycemia Code(s): E11.9 - Type 2 diabetes mellitus without complications Status: Chronic Assessment and Plan: Continue sliding scale insulin, Accu-Cheks, and hypoglycemic protocol Monitor follow accuchecks glycemic control controlled at this time, glucose 110s today (7) Generalized weakness: Code(s): R53.1 - Weakness Status: Acute Assessment and Plan: Related to deconditioning, weight gain, and chronic comorbidities PT/OT consulted Patient needs significant PT/OT before returning to home/[place] precautions (8) Hypokalemia: Code(s): E87.6 - Hypokalemia Statu
--- NOTE | 2021-11-23 09:15 | P.PNIM_ITS ---
Progress Note: A&P Assessment and Plan (1) Acute exacerbation of congestive heart failure: Code(s): I50.9 - Heart failure, unspecified Status: Acute Assessment and Plan: * Acute diastolic exacerbation of heart failure * Lasix 40 mg IV Q8hr * Dr. Hopkins following and diuresing patient, treating cardiomyopathy/HTN/CHF * Strict I/O * Daily weights * Check ECHO - showed MV severe calcification, EF 65-70%, moderate TV regurg, severe pulm HTN with paP 69, right atrial pressure elevated. * CT scan showed 10 x 6 mm left lower lobe nodule with macroscopic fat attenuation unchanged since 09/08/2019 consistent with a hamartoma. Smooth septal line thickening at the bilateral lung bases consistent with mild pulmonary edema. Enlargement of the central pulmonary arteries consistent with pulmonary arterial hypertension. Cardiomegaly with prominent right atrial enlargement. Atherosclerotic coronary artery calcification. Tiny pericardial effusion. No pleural effusion. * BNP 3690 * Trend BP is soft today (2) Renal failure: Code(s): N19 - Unspecified kidney failure Status: Acute Assessment and Plan: * Creatinine is better today at 1.60 * Monitor her renal function closely while diuresing * Avoid nephrotoxins * Appreciate nephrology consult * Keep MAPS >65 , BPs stable today 113/71 (3) Chronic anemia: Code(s): D64.9 - Anemia, unspecified Status: Acute Assessment and Plan: * Hemoglobin is stable but remains in the mid sevens 7.6 today * Continue iron supplementation * Also continue PPI as she was noted to have gastritis on EGD in September 2021 * Iron supplementation and continues anemia, combined with her significantly increased O2 requirement and soft BPs, * 1 unit RBC with 20 lasix 11/21/21 * transfusing as needed. (4) Hypertension: Qualifiers: Hypertension type: essential hypertension Qualified Code(s): I10 - Essential (primary) hypertension Code(s): I10 - Essential (primary) hypertension Status: Acute Assessment and Plan: * Blood pressures stable, soft sometimes, SBPs 90-100s. * Monitor closely while diuresing * holding norvasc and losartan at this time (5) COPD (chronic obstructive pulmonary disease): Qualifiers: COPD type: unspecified COPD Qualified Code(s): J44.9 - Chronic obstructive pulmonary disease, unspecified Code(s): J44.9 - Chronic obstructive pulmonary disease, unspecified Status: Chronic Assessment and Plan: * possible acute exacerbation today with CO2 retention and increased O2 requirement * ordered mucinex and inhaler scheduled. * appreciate pulmonary consult * unable to continue her non-formulary maintenance inhalers * She was on 5 L NC this morning, desaturated during her meal, and was placed on 15L high-flow nasal cannula. * Despite diuresis, she is having increasing O2 requirement * ABG was near normal - some CO2 retention. 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
[2021-11-23 09:22] LABS: Platelet Estimate Adequate (Adequate)
[2021-11-23] MEDS: GABAPENTIN 100 MG CAPSULE PO ×3 (09:22→15:52)
[2021-11-23] MEDS: PANTOPRAZOLE 40 MG TABLET PO ×2 (09:22→15:52)
[2021-11-23] MEDS: POLYSACCHARIDE IRON COMPLEX 150 MG CAPSULE PO ×2 (09:22→15:52)
[2021-11-23] MEDS: guaiFENesin 12 HR 600 MG TABCR 1200 MG PO ×2 (09:22→20:19)
[2021-11-23 09:23] LABS: Anisocytosis 2+ (NORMAL); Hypochromasia 1+ (NORMAL)
[2021-11-23] MEDS: ATORVASTATIN 40 MG TABLET PO (09:23)
[2021-11-23] MEDS: EZETIMIBE 10 MG TABLET PO (09:23)
[2021-11-23 09:24] LABS: Helmet Cells 1+ (NORMAL); Ovalocytes 1+ (NORMAL); Target Cells 2+ (NORMAL); Tear Drop Cells 1+ (NORMAL)
--- NOTE | 2021-11-23 09:40 | P.PNNP_ITS ---
Progress Note: A&P Assessment and Plan (1) SAMARA (acute kidney injury): Code(s): N17.9 - Acute kidney failure, unspecified Status: Acute Assessment and Plan: * as noted on admission - stable if not better * suspect multifactorial: * CHF exacerbation * relative hypotension * cardiorenal syndrome (and associated chronic prerenal azotemia) * severe pulmonary HTN * valvular heart disease * anemia * relatively stable at this time * follow-up on urine electrolytes, urine eosinophils, and renal ultrasound * follow trend of renal function and UOP (2) CKD (chronic kidney disease): Code(s): N18.9 - Chronic kidney disease, unspecified Status: Acute Assessment and Plan: * creatinine has fluctuated ~ 0.9 - 1.3mg/dl in the last year * likely due to HTN, DM, vascular disease, and CHF with necessity of diuretic therapy (3) Acute exacerbation of CHF (congestive heart failure): Qualifiers: Heart failure type: systolic Qualified Code(s): I50.23 - Acute on chronic systolic (congestive) heart failure Code(s): I50.9 - Heart failure, unspecified Status: Acute Assessment and Plan: * Cardiology following * on IV diuretic therapy * maximize efforts to optimize blood pressure * urine output better - still is positive fluid balance * could consider IV albumin chased by IV diuretics (but not sure how well this would work since last albumin was in normal range) * diuretic gtt is an another option * adding dopamine to help with hemodynamics which might help with diuresis (would defer this decision to Cardiology) * follow trend of diuresis and I/Os (4) Anemia: Code(s): D64.9 - Anemia, unspecified Status: Chronic Assessment and Plan: * some what of a chronic issue * possibly worsened by acute illness * s/p PRBC transfusion * follow trend of H/H (5) Hypertension: Code(s): I10 - Essential (primary) hypertension Status: Chronic Assessment and Plan: * not an issue at this time * BP on the soft/relatively low at this time * follow trend of hemodynamics (6) Diabetes mellitus: Qualifiers: Diabetes mellitus type: type 2 Diabetes mellitus watermelon inspector insulin use: without watermelon inspector use Diabetes mellitus complication status: with hyperglycemia Qualified Code(s): E11.65 - Type 2 diabetes mellitus with hyperglycemia Code(s): E11.9 - Type 2 diabetes mellitus without complications Status: Chronic Assessment and Plan: * follow accuchecks * glycemic control Will continue to follow. Subjective Date/time seen: 11/23/21 09:40 Still requiring significant oxygen support but states that her breathing/edema seems to be doing better; no other acute complaints voiced; no distress noted; better urine output noted but still remains in positive fluid balance; no issues/events overnight or earlier this AM. Exam Narrative: General: WD/WN AA female in NAD Heart: normal S1 and S2; no rub Lungs: decreased with bibasilar crackles Abdomen: soft, nontender, nondistended, positive bowel sounds Extremities: no cyanosis or clubbing; 2+ edema Skin: warm and intact Objective Data Vital Signs Vital Signs: Vital Signs Temp Pulse Resp BP Pulse Ox 11/23/21 09:12 90 11/23/21 08:30 98 11/23/21 04:30 36.3 C L 71 16 94/66 L 100 11/22/21 21:51
--- NOTE | 2021-11-23 09:40 | PM.PNNEP ---
Progress Note: A&P Assessment and Plan (1) SAMARA (acute kidney injury): Code(s): N17.9 - Acute kidney failure, unspecified Status: Acute Assessment and Plan: as noted on admission - stable if not better suspect multifactorial: CHF exacerbation relative hypotension cardiorenal syndrome (and associated chronic prerenal azotemia) severe pulmonary HTN valvular heart disease anemia relatively stable at this time follow-up on urine electrolytes, urine eosinophils, and renal ultrasound follow trend of renal function and UOP (2) CKD (chronic kidney disease): Code(s): N18.9 - Chronic kidney disease, unspecified Status: Acute Assessment and Plan: creatinine has fluctuated ~ 0.9 - 1.3mg/dl in the last year likely due to HTN, DM, vascular disease, and CHF with necessity of diuretic therapy (3) Acute exacerbation of CHF (congestive heart failure): Qualifiers: Heart failure type: systolic Qualified Code(s): I50.23 - Acute on chronic systolic (congestive) heart failure Code(s): I50.9 - Heart failure, unspecified Status: Acute Assessment and Plan: Cardiology following on IV diuretic therapy maximize efforts to optimize blood pressure urine output better - still is positive fluid balance could consider IV albumin chased by IV diuretics (but not sure how well this would work since last albumin was in normal range) diuretic gtt is an another option adding dopamine to help with hemodynamics which might help with diuresis (would defer this decision to Cardiology) follow trend of diuresis and I/Os (4) Anemia: Code(s): D64.9 - Anemia, unspecified Status: Chronic Assessment and Plan: some what of a chronic issue possibly worsened by acute illness s/p PRBC transfusion follow trend of H/H (5) Hypertension: Code(s): I10 - Essential (primary) hypertension Status: Chronic Assessment and Plan: not an issue at this time BP on the soft/relatively low at this time follow trend of hemodynamics (6) Diabetes mellitus: Qualifiers: Diabetes mellitus type: type 2 Diabetes mellitus 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 Subjective Date/time seen: 11/23/21 09:40 Still requiring significant oxygen support but states that her breathing/edema seems to be doing better; no other acute complaints voiced; no distress noted; better urine output noted but still remains in positive fluid balance; no issues/events overnight or earlier this AM. Exam Narrative: General: WD/WN AA female in NAD Heart: normal S1 and S2; no rub Lungs: decreased with bibasilar crackles Abdomen: soft, nontender, nondistended, positive bowel sounds Extremities: no cyanosis or clubbing; 2+ edema Skin: warm and intact Objective Data Vital Signs Vital Signs: Vital Signs Temp Pulse Resp BP Pulse Ox 11/23/21 09:12 90 11/23/21 08:30 98 11/23/21 04:30 36.3 C L 71 16 94/66 L 100 11/22/21 21:51 36.6 C 70 18 95/65 L 98 11/22/21 20:00 94 11/22/21 16:00 70 11/22/21 14:00 36.1 C L 73 19 105/58 L 96 11/22/21 12:00 74 11/22/21 11:09 90 Intake/Output Intake/Output: Intake & Output 11/20/21 11/21/21 11/22/21 11/23/21 23:59 23:59 23:59 23:59 Intake Total 1970 2520 2090 750 Output Total 5726 796 5694 650 Balance 570 1670 490 100 Meds/Results Medications: Active Medications Generic Name Dose Route Start Last Admin Trade Name Freq PRN Reason Stop Dose Admin Albuterol 1 puff 11/21/21 14:00 11/23/21 08:31 Albuterol Sulfate (*Sp)
[2021-11-23 11:24] LABS: Glucose Point of Care 125 mg/dl (65-105)
[2021-11-23 11:33] LABS: Glucose Point of Care 156 mg/dl (65-105)
[2021-11-23 15:08] LABS: D Dimer 3.01 ug/mL (<0.48)
[2021-11-23 16:18] LABS: Glucose Point of Care 143 mg/dl (65-105)
--- NOTE | 2021-11-23 16:40 | PM.CNPUL ---
Assessment and Plan Assessment and plan (1) Acute and chronic respiratory failure: Code(s): J96.20 - Acute and chronic respiratory failure, unspecified whether with hypoxia or hypercapnia Status: Acute Assessment and Plan: She has chronic hypoxemic respiratory failure on O2 at home, with subacute worsening associated with large amount of peripheral edema and pulmonary edema radiographically despite significant doses of diuretics at home, Lasix 80 mg twice and day and p.r.n. doses. She is needing more O2 as she has pulmonary edema and total body edema due to decompensated cardiac function. She does not have increased sputum or other symptoms to suggest COPD exacerbation. This appears to be cardiac decompensation. (2) Chronic obstructive pulmonary disease: Code(s): J44.9 - Chronic obstructive pulmonary disease, unspecified Status: Acute Assessment and Plan: (3) Acute exacerbation of congestive heart failure: Code(s): I50.9 - Heart failure, unspecified Status: Acute Assessment and Plan: THis is the cause of her increased shortness of breath and hypoxemia. History of Present Illness History of Present Illness Consult date: 12/20/21 Requesting physician: Leonila Luo NP Reason for consult: hypoxemia Chief complaint: CHF acute exacerbation/pulmonary edema Narrative: NEW: Maura Hill is a 61 year old female with COPD, chronic respiratory failure with O2 use, GUANACO who we follow in the clinic. I was consulted to see her for hypoxemia. She reports increased swelling over several weeks prior to admission despite diuretics. CXT 11/21/21 = IMPRESSION: Cardiomegaly, congestive heart failure and suspected pulmonary edema; Pneumonia is not excluded. She uses O2 at home, has required more recently. She does not have increased cough, sputum, fever, sore throat or nasal congestion. Review of Systems Review of Systems: All systems reviewed & are unremarkable except as noted in HPI and below PMFSH Past Medical History Medical History Adrenal mass Chronic anemia Chronic hypoxemic respiratory failure Chronic obstructive pulmonary disease Congestive heart failure Diabetes mellitus Hyperlipidemia Hypertension Lung nodule 11 mm Tobacco abuse 35 pack year, quit Aug 2019. Surgical History Surgical History History of 3 sections History of appendectomy History of cholecystectomy History of colonoscopy with polypectomy History of esophagogastroduodenoscopy Family History Family History Grandparent Congestive heart failure Mother HTN (hypertension) with goal to be determined Hyperlipidemia Cancer Sibling Age: 55 HTN (hypertension) with goal to be determined Asthma Lupus Sibling Age: 52 Diabetes mellitus Heart disease Social History Social History Social History: Lives in [place]. 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 Has 3 children. Smoked up to 2 packs of cigarettes a day for 40 years. Occasional alcohol use in moderation. Smoking packs per day: 2 Smoking cigarettes per day: 40.0 Years smoked: 30 Smoking pack-years: 60.00 Smoking status: Never smoker Tobacco type: cigarettes Smoking end date: 10/30/18 Alcohol intake: never Substance use: never Spiritual care concerns: No Meds Home Medications and Allergies Home Medications Medication Instructions Recorded Confirmed Type aspirin [Aspir-81] 81 mg PO DAILY 09/08/19 11/19/21 History atorvastati
[2021-11-23 21:00] LABS: Creatinine Urine 68.4 mg/dL; Total Protein Urine Random 12 mg/dL; Ur Ttl Prot Creatinine Ratio 0.18 mg/mg (0-0.20)
[2021-11-23 21:07] LABS: Sodium Urine Random 16 meq/L
[2021-11-23 21:47] LABS: Eosinophil Urine None Seen % (None Seen)
[2021-11-23 22:01] LABS: Glucose Point of Care 143 mg/dl (65-105)
[2021-11-24] VITALS (11 sets, daily range): BP systolic 97–105; BP diastolic 52–65; PULSE 70–77; RESP 18; TEMP 36.2–37; O2SAT 89–98
[2021-11-24] MEDS: ALBUTEROL SULFATE (*SP) AEROSOL 1 PUFF INHALATION ×4 (02:04→20:58)
[2021-11-24] MEDS: FUROSEMIDE INJ 40 MG/4 ML VIAL IV PUSH ×3 (05:11→20:54)
[2021-11-24 07:02] LABS: IFOB Positive Control Positive; Immunochemical Fecal Occult Bl Negative (N)
[2021-11-24 07:26] LABS: Basophils Percent Auto 0.4 % (0.2-1.2); Eosinophils Absolute Auto 0.2 K/mm3 (0-0.3); Eosinophils Percent Auto 2.3 % (0-4.4); Hematocrit 25.8 % (37.0-47.0); Hemoglobin 7.5 g/dL (12.0-15.0); Immature Granulocyte Absolute 0.04 K/mm3 (0.00-0.031); Immature Granulocyte Percent A 0.5 % (0-0.5); Lymphocytes Absolute Auto 0.71 K/mm3 (0.9-3.2); Lymphocytes Percent Auto 8.7 % (18.3-44.2); Mean Corpuscular HGB Conc 29.1 g/dl (32-36); Mean Corpuscular Hemoglobin 21.4 pg (26-34); Mean Corpuscular Volume 73.7 fl (80-100); Mean Platelet Volume 10.1 fl (7.4-10.4); Monocytes Absolute Auto 0.5 K/mm3 (0.1-0.6); Monocytes Percent Auto 6.3 % (2.6-8.5); Neutrophils Absolute Auto 6.7 K/mm3 (1.3-6.7); Neutrophils Percent Auto 81.8 % (45.5-73.1); Platelet Count Result 254 k/mm3 (150-375); Red Cell Distribution Width 21.6 % (11.5-14.5); White Blood Count 8.1 K/mm3 (4.5-10.0)
[2021-11-24 07:39] LABS: Alanine Aminotransferase 9 U/L (4-35); Albumin Level 3.3 g/dL (3.5-5.1); Alkaline Phosphatase 125 U/L (38-126); Anion Gap 12 mmol/L (8-16); Aspartate Amino Transferase 34 U/L (14-36); Bilirubin,Total 0.7 mg/dL (0.2-1.3); Blood Urea Nitrogen 42 mg/dL (7-17); Carbon Dioxide 28 mmol/L (22-30); Chloride 99 mmol/L (98-107); Estimated CRCL calculation 49 ml/min; Estimated Glomerular Filt Rate 37; Glucose 112 mg/dL (65-110); Magnesium 2.1 mg/dL (1.6-2.3); Potassium 3.7 mmol/L (3.4-5.0); Sodium 139 mmol/L (137-145)
--- NOTE | 2021-11-24 07:51 | PM.PNCARD ---
Progress Note: A&P Assessment and Plan (1) Acute exacerbation of congestive heart failure: Code(s): I50.9 - Heart failure, unspecified Status: Acute Assessment and Plan: Acute on chronic mild diastolic heart failure. No systolic dysfunction or systolic heart failure and no valvular heart disease. She is third spacing in lungs, abdomen, and legs and low intravascular volume primarily due to pulmonary hypertension and possible cirrhosis of liver. Volume overload due to a combination of acute on chronic mild diastolic heart failure, worsening CKD due to cardiorenal syndrome, severe pulmonary hypertension, high output failure from anemia and possible cirrhosis of liver. Difficult to keep euvolemic due to cardiorenal syndrome. On Lasix 40 mg IV Q8HR. She is improving clinically with less sob and edema of legs. If this does not work then consider lasix drip or renal dose dopamine to enhance diuresis. Wean oxygen off as tolerated. (2) CKD (chronic kidney disease): Code(s): N18.9 - Chronic kidney disease, unspecified Status: Acute Assessment and Plan: Monitor renal function and electrolytes closely and replace as needed. Nephrology following. (3) Chronic anemia: Code(s): D64.9 - Anemia, unspecified Status: Acute Assessment and Plan: Microcytic anemia suggests blood loss or iron deficiency anemia. Workup and manage anemia. Received 1 unit PRBC transfusion. (4) Chronic obstructive pulmonary disease: Code(s): J44.9 - Chronic obstructive pulmonary disease, unspecified Status: Acute (5) Pulmonary hypertension: Code(s): I27.20 - Pulmonary hypertension, unspecified Status: Acute Assessment and Plan: Probably due to a combination of GUANACO and COPD, and diastolic dysfunction. (6) Obstructive sleep apnea: Code(s): G47.33 - Obstructive sleep apnea (adult) (pediatric) Status: Acute Subjective Date/time seen: 11/24/21 07:51 Reports breathing is getting better, on NC oxygen and off face mask this morning. No chest pain. Exam Const: General: cooperative, healthy appearing and comfortable Nutritional Appearance: obese Resp: Auscultation: no crackles, no rales, no rhonchi, no wheezes and diminished lung sounds Cardio: Jugular venous distension: no JVD Rate: regular rate Rhythm: regular rhythm Heart sounds: no murmurs GI: GI Palp: No abdominal tenderness and Yes Soft to palpation Neuro: General: oriented to person, oriented to place and oriented to time Extrem: Right lower extremity: edema Left lower extremity: edema Other: Mild edema of both legs Objective Data Vital Signs Vital Signs: Vital Signs - 24 hr 11/23/21 08:30 11/23/21 09:12 11/23/21 09:20 Temperature Pulse Rate 70 Respiratory Rate Blood Pressure Pulse Oximetry 98 90 94 11/23/21 12:00 11/23/21 13:53 11/23/21 14:33 Temperature 97 F L Pulse Rate 68 54 L Respiratory Rate 16 Blood Pressure 113/71 Pulse Oximetry 98 95 11/23/21 16:00 11/23/21 20:00 11/23/21 21:54 Temperature Pulse Rate 68 74 Respiratory Rate 18 Blood Pressure Pulse Oximetry 96 95 11/23/21 22:00 11/24/21 00:00 11/24/21 02:05 Temperature 97.8 F Pulse Rate 67 77 Respiratory Rate 16 Blood Pressure 95/61 L Pulse Oximetry 100 94 11/24/21 05:22 Temperature 98.6 F Pulse Rate 74 Respiratory Rate 18 Blood Pressure 97/65 L Pulse Oximetry 96 Intake/Output Intake/Output: Intake & Output 11/21/21 11/22/21 11/23/21 11/24/21 23:59 23:59 23:59 23:59 Intake Total 2520 2090 2330 500 Output Total 850 1600 1800 900 Balance 1670 490 530 -400 Meds/Results Medications: Active Medications Generic Name Dose Route Start Last Admin Trade Name Freq PRN Reason Stop Dose Admin Albuterol 1 puff 11/21/21 14:00 11/24/21 02:04 Albuterol Sulfate (*Sp) Aerosol 1 Puff INHALATION 1 puff Q6HRT EMIR Administration Atorvastatin Calcium 40 mg 11/20
[2021-11-24] MEDS: UMECLIDINIUM/VILANTEROL 62.5-25 MCG ELLIPTA 1 PUFF INHALATION (08:21)
[2021-11-24 08:22] LABS: Hypochromasia 2+ (NORMAL); Platelet Estimate Adequate (Adequate)
[2021-11-24 08:23] LABS: Anisocytosis 1+ (NORMAL); Ovalocytes 1+ (NORMAL); Target Cells 1+ (NORMAL)
[2021-11-24 08:32] LABS: Glucose Point of Care 101 mg/dl (65-105)
--- NOTE | 2021-11-24 09:15 | PM.IMPN ---
Progress Note: A&P Assessment and Plan (1) Acute exacerbation of congestive heart failure: Code(s): I50.9 - Heart failure, unspecified Status: Acute Assessment and Plan: Acute diastolic exacerbation of heart failure Lasix [address] Hopkins following and diuresing patient, treating cardiomyopathy/HTN/CHF Strict I/O Daily weights Check ECHO - showed MV severe calcification, EF 65-70%, moderate TV regurg, severe pulm HTN with paP 69, right atrial pressure elevated. CT scan showed 10 x 6 mm left lower lobe nodule with macroscopic fat attenuation unchanged since 09/08/2019 consistent with a hamartoma. Smooth septal line thickening at the bilateral lung bases consistent with mild pulmonary edema. Enlargement of the central pulmonary arteries consistent with pulmonary arterial hypertension. Cardiomegaly with prominent right atrial enlargement. Atherosclerotic coronary artery calcification. Tiny pericardial effusion. No pleural effusion. BNP 3690 Trend BP is soft today (2) Renal failure: Code(s): N19 - Unspecified kidney failure Status: Acute Assessment and Plan: Creatinine is better today at 1.70 Monitor her renal function closely while diuresing Avoid nephrotoxins Appreciate nephrology consult Keep MAPS >65 , BPs stable today 113/71 (3) Chronic anemia: Code(s): D64.9 - Anemia, unspecified Status: Acute Assessment and Plan: Hemoglobin is stable but remains in the mid sevens 7.5 today Continue iron supplementation Also continue PPI as she was noted to have gastritis on EGD in September 2021 Iron supplementation and continues anemia, combined with her significantly increased O2 requirement and soft BPs, 1 unit RBC with 20 lasix 11/21/21 transfusing as needed. (4) Hypertension: Qualifiers: Hypertension type: essential hypertension Qualified Code(s): I10 - Essential (primary) hypertension Code(s): I10 - Essential (primary) hypertension Status: Acute Assessment and Plan: Blood pressures stable, soft sometimes, SBPs 90-100s. Monitor closely while diuresing holding norvasc and losartan at this time (5) COPD (chronic obstructive pulmonary disease): Qualifiers: COPD type: unspecified COPD Qualified Code(s): J44.9 - Chronic obstructive pulmonary disease, unspecified Code(s): J44.9 - Chronic obstructive pulmonary disease, unspecified Status: Chronic Assessment and Plan: possible acute exacerbation today with CO2 retention and increased O2 requirement ordered mucinex and inhaler scheduled. appreciate pulmonary consult unable to continue her non-formulary maintenance inhalers She was on 5 L NC this morning, desaturated during her meal, and was placed on 15L high-flow nasal cannula. Despite diuresis, she is having increasing O2 requirement ABG was near normal - some CO2 retention. RT is working to wean down her O2 requirement again Wonder if there is a PE Continue Anoro ellipta 1 puff inh daily and albuterol (6) Diabetes mellitus: Qualifiers: Diabetes mellitus type: type 2 Diabetes mellitus alf insulin use: without alf use Diabetes mellitus complication status: with hyperglycemia Qualified Code(s): E11.65 - Type 2 diabetes mellitus with hyperglycemia Code(s): E11.9 - Type 2 diabetes mellitus without complications Status: Chronic Assessment and Plan: Continue sliding scale insulin, Accu-Cheks, and hypoglycemic protocol Monitor follow accuchecks glycemic control controlled at this time, glucose 110s today (7) Generalized weakness: Code(s): R53.1 - Weakness Status: Acute Assessment and Plan: Related to deconditioning, weight gain, and chronic comorbidities PT/OT consulted Patient needs significant PT/OT before returning to home/[place] Fall precautions (8) [place]
--- NOTE | 2021-11-24 09:15 | P.PNIM_ITS ---
Progress Note: A&P Assessment and Plan (1) Acute exacerbation of congestive heart failure: Code(s): I50.9 - Heart failure, unspecified Status: Acute Assessment and Plan: * Acute diastolic exacerbation of heart failure * Lasix 40 mg IV Q8hr * Dr. Hopkins following and diuresing patient, treating cardiomyopathy/HTN/CHF * Strict I/O * Daily weights * Check ECHO - showed MV severe calcification, EF 65-70%, moderate TV regurg, severe pulm HTN with paP 69, right atrial pressure elevated. * CT scan showed 10 x 6 mm left lower lobe nodule with macroscopic fat attenuation unchanged since 09/08/2019 consistent with a hamartoma. Smooth septal line thickening at the bilateral lung bases consistent with mild pulmonary edema. Enlargement of the central pulmonary arteries consistent with pulmonary arterial hypertension. Cardiomegaly with prominent right atrial enlargement. Atherosclerotic coronary artery calcification. Tiny pericardial effusion. No pleural effusion. * BNP 3690 * Trend BP is soft today (2) Renal failure: Code(s): N19 - Unspecified kidney failure Status: Acute Assessment and Plan: * Creatinine is better today at 1.70 * Monitor her renal function closely while diuresing * Avoid nephrotoxins * Appreciate nephrology consult * Keep MAPS >65 , BPs stable today 113/71 (3) Chronic anemia: Code(s): D64.9 - Anemia, unspecified Status: Acute Assessment and Plan: * Hemoglobin is stable but remains in the mid sevens 7.5 today * Continue iron supplementation * Also continue PPI as she was noted to have gastritis on EGD in September 2021 * Iron supplementation and continues anemia, combined with her significantly increased O2 requirement and soft BPs, * 1 unit RBC with 20 lasix 11/21/21 * transfusing as needed. (4) Hypertension: Qualifiers: Hypertension type: essential hypertension Qualified Code(s): I10 - Essential (primary) hypertension Code(s): I10 - Essential (primary) hypertension Status: Acute Assessment and Plan: * Blood pressures stable, soft sometimes, SBPs 90-100s. * Monitor closely while diuresing * holding norvasc and losartan at this time (5) COPD (chronic obstructive pulmonary disease): Qualifiers: COPD type: unspecified COPD Qualified Code(s): J44.9 - Chronic obstructive pulmonary disease, unspecified Code(s): J44.9 - Chronic obstructive pulmonary disease, unspecified Status: Chronic Assessment and Plan: * possible acute exacerbation today with CO2 retention and increased O2 requirement * ordered mucinex and inhaler scheduled. * appreciate pulmonary consult * unable to continue her non-formulary maintenance inhalers * She was on 5 L NC this morning, desaturated during her meal, and was placed on 15L high-flow nasal cannula. * Despite diuresis, she is having increasing O2 requirement * ABG was near normal - some CO2 retention. 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
[2021-11-24] MEDS: GABAPENTIN 100 MG CAPSULE PO ×3 (09:31→17:07)
[2021-11-24] MEDS: EZETIMIBE 10 MG TABLET PO (09:31)
[2021-11-24] MEDS: PANTOPRAZOLE 40 MG TABLET PO ×2 (09:31→17:07)
[2021-11-24] MEDS: POLYSACCHARIDE IRON COMPLEX 150 MG CAPSULE PO ×2 (09:31→17:07)
[2021-11-24] MEDS: guaiFENesin 12 HR 600 MG TABCR 1200 MG PO ×2 (09:31→20:51)
[2021-11-24] MEDS: ATORVASTATIN 40 MG TABLET PO (09:31)
[2021-11-24 11:38] LABS: Glucose Point of Care 128 mg/dl (65-105)
--- NOTE | 2021-11-24 12:05 | P.PNNP_ITS ---
Progress Note: A&P Assessment and Plan (1) SAMARA (acute kidney injury): Code(s): N17.9 - Acute kidney failure, unspecified Status: Acute Assessment and Plan: * as noted on admission - stable if not better * suspect multifactorial: * CHF exacerbation * relative hypotension * cardiorenal syndrome (and associated chronic prerenal azotemia) * severe pulmonary HTN * anemia * relatively stable at this time * follow-up on urine electrolytes, urine eosinophils, and renal ultrasound * follow trend of renal function and UOP (2) CKD (chronic kidney disease): Code(s): N18.9 - Chronic kidney disease, unspecified Status: Acute Assessment and Plan: * creatinine has fluctuated ~ 0.9 - 1.3mg/dl in the last year * likely due to HTN, DM, vascular disease, and CHF with necessity of diuretic therapy (3) Acute exacerbation of CHF (congestive heart failure): Qualifiers: Heart failure type: systolic Qualified Code(s): I50.23 - Acute on chronic systolic (congestive) heart failure Code(s): I50.9 - Heart failure, unspecified Status: Acute Assessment and Plan: * Cardiology following * on IV diuretic therapy * maximize efforts to optimize blood pressure * urine output better - still is positive fluid balance * could consider IV albumin chased by IV diuretics (but not sure how well this would work since last albumin was in normal range) * diuretic gtt is an another option * adding dopamine to help with hemodynamics which might help with diuresis (would defer this decision to Cardiology) * follow trend of diuresis and I/Os (4) Anemia: Code(s): D64.9 - Anemia, unspecified Status: Chronic Assessment and Plan: * some what of a chronic issue * possibly worsened by acute illness and renal dysfunction * s/p PRBC transfusion * follow trend of H/H (5) Hypertension: Code(s): I10 - Essential (primary) hypertension Status: Chronic Assessment and Plan: * not an issue at this time * BP on the soft/relatively low at this time * follow trend of hemodynamics (6) Diabetes mellitus: Qualifiers: Diabetes mellitus complication status: with hyperglycemia Diabetes mellitus custodial insulin use: without custodial use Diabetes mellitus type: type 2 Qualified Code(s): E11.65 - Type 2 diabetes mellitus with hyperglycemia Code(s): E11.9 - Type 2 diabetes mellitus without complications Status: Chronic Assessment and Plan: * follow accuchecks * glycemic control Will continue to follow. Subjective Date/time seen: 11/24/21 12:05 Reasonable urine output with current diuretic therapy although still remains in positive fluid balance; still requiring significant oxygen support at this time; she says her edema/swelling is better (but appears quite pronounced at this time); no acute distress noted. Exam Narrative: General: WD/WN AA female in NAD Heart: normal S1 and S2; no rub Lungs: decreased with bibasilar crackles Abdomen: soft, nontender, nondistended, positive bowel sounds Extremities: no cyanosis or clubbing; 2 - 3+ edema Skin: no rash or nodules Objective Data Vital Signs Vital Signs: Vital Signs Temp Pulse Resp BP Pulse Ox 11/24/21 12:00 70 11/24/21 08:00 74 96 11/24/21 05:22 37.0 C 74 18 97/65 L 96 11/24/21 02:05
--- NOTE | 2021-11-24 12:05 | PM.PNNEP ---
Progress Note: A&P Assessment and Plan (1) SAMARA (acute kidney injury): Code(s): N17.9 - Acute kidney failure, unspecified Status: Acute Assessment and Plan: as noted on admission - stable if not better suspect multifactorial: CHF exacerbation relative hypotension cardiorenal syndrome (and associated chronic prerenal azotemia) severe pulmonary HTN anemia relatively stable at this time follow-up on urine electrolytes, urine eosinophils, and renal ultrasound follow trend of renal function and UOP (2) CKD (chronic kidney disease): Code(s): N18.9 - Chronic kidney disease, unspecified Status: Acute Assessment and Plan: creatinine has fluctuated ~ 0.9 - 1.3mg/dl in the last year likely due to HTN, DM, vascular disease, and CHF with necessity of diuretic therapy (3) Acute exacerbation of CHF (congestive heart failure): Qualifiers: Heart failure type: systolic Qualified Code(s): I50.23 - Acute on chronic systolic (congestive) heart failure Code(s): I50.9 - Heart failure, unspecified Status: Acute Assessment and Plan: Cardiology following on IV diuretic therapy maximize efforts to optimize blood pressure urine output better - still is positive fluid balance could consider IV albumin chased by IV diuretics (but not sure how well this would work since last albumin was in normal range) diuretic gtt is an another option adding dopamine to help with hemodynamics which might help with diuresis (would defer this decision to Cardiology) follow trend of diuresis and I/Os (4) Anemia: Code(s): D64.9 - Anemia, unspecified Status: Chronic Assessment and Plan: some what of a chronic issue possibly worsened by acute illness and renal dysfunction s/p PRBC transfusion follow trend of H/H (5) Hypertension: Code(s): I10 - Essential (primary) hypertension Status: Chronic Assessment and Plan: not an issue at this time BP on the soft/relatively low at this time follow trend of hemodynamics (6) Diabetes mellitus: Qualifiers: Diabetes mellitus complication status: with hyperglycemia Diabetes mellitus shelter insulin use: without shelter use Diabetes mellitus type: type 2 Qualified Code(s): E11.65 - Type 2 diabetes mellitus with hyperglycemia Code(s): E11.9 - Type 2 diabetes mellitus without complications Status: Chronic Assessment and Plan: follow accuchecks glycemic control Will continue to follow. Subjective Date/time seen: 11/24/21 12:05 Reasonable urine output with current diuretic therapy although still remains in positive fluid balance; still requiring significant oxygen support at this time; she says her edema/swelling is better (but appears quite pronounced at this time); no acute distress noted. Exam Narrative: General: WD/WN AA female in NAD Heart: normal S1 and S2; no rub Lungs: decreased with bibasilar crackles Abdomen: soft, nontender, nondistended, positive bowel sounds Extremities: no cyanosis or clubbing; 2 - 3+ edema Skin: no rash or nodules Objective Data Vital Signs Vital Signs: Vital Signs Temp Pulse Resp BP Pulse Ox 11/24/21 12:00 70 11/24/21 08:00 74 96 11/24/21 05:22 37.0 C 74 18 97/65 L 96 11/24/21 02:05 94 11/24/21 00:00 77 11/23/21 22:00 36.6 C 67 16 95/61 L 100 11/23/21 21:54 95 11/23/21 20:00 74 18 96 Intake/Output Intake/Output: Intake & Output 11/21/21 11/22/21 11/23/21 11/24/21 23:59 23:59 23:59 23:59 Intake Total 2520 2090 2330 980 Output Total 850 1600 1800 1900 Balance 1670 490 530 -920 Meds/Results Medications: Active Medications Generic Name Dose Route Start Last Admin Trade Name Freq PRN Reason Stop Dose Admin Albuterol 1 puff 11/21/21 14:00 11/24/21 13:47 Albuterol Sulfate (*Sp) Aerosol 1 Puff INHALATION 1 puff Q6
[2021-11-24 15:26] LABS: Alveolar/Arterial O2 Gradient 353.2 mmHg; Base Excess ABG 5.1 mEq/l (+/-2.0); Fractional Inspired Oxygen 65 %; HCO3 ABG 30.2 mEq/l (22.0-26.0); Oxygen Content ABG 10.8 %vol (16.0-22.0); Oxygen Saturation ABG 90.6 % (95.0-100.0); PCO2 ABG 47.6 mmHg (35.0-45.0); PO2 ABG 58.5 mmHg (80.0-100.0); Total Hemoglobin 8.8 g/dL (12.0-18.0)
[2021-11-24 15:28] LABS: Modified Allen's Test Pass; Oxyhemoglobin 86.8 % THb (90.0-100.0); Site Drawn RIGHT RADIAL
[2021-11-24 15:52] LABS: Device HIGH FLOW NASAL CANN
[2021-11-24 17:22] LABS: Glucose Point of Care 124 mg/dl (65-105)
[2021-11-24 21:54] LABS: Glucose Point of Care 144 mg/dl (65-105)
[2021-11-25] VITALS (23 sets, daily range): BP systolic 105–114; BP diastolic 52–68; PULSE 69–83; RESP 18–22; TEMP 36.8–36.9; O2SAT 78–100
[2021-11-25] MEDS: ALBUTEROL SULFATE (*SP) AEROSOL 1 PUFF INHALATION ×4 (03:00→20:00)
[2021-11-25] MEDS: FUROSEMIDE INJ 40 MG/4 ML VIAL IV PUSH ×3 (05:38→19:56)
--- NOTE | 2021-11-25 08:26 | PM.PNCARD ---
Progress Note: A&P Assessment and Plan (1) Acute exacerbation of congestive heart failure: Code(s): I50.9 - Heart failure, unspecified Status: Acute Assessment and Plan: Acute on chronic mild diastolic heart failure. No systolic dysfunction or systolic heart failure and no valvular heart disease. She is third spacing in lungs, abdomen, and legs and low intravascular volume primarily due to pulmonary hypertension and possible cirrhosis of liver. Volume overload due to a combination of acute on chronic mild diastolic heart failure, worsening CKD due to cardiorenal syndrome, severe pulmonary hypertension, high output failure from anemia and possible cirrhosis of liver. Difficult to keep euvolemic due to cardiorenal syndrome. On Lasix 40 mg IV Q8HR. She is improving clinically with less sob and edema of legs. If this does not work then consider lasix drip or renal dose dopamine to enhance diuresis. Wean oxygen off as tolerated. (2) CKD (chronic kidney disease): Code(s): N18.9 - Chronic kidney disease, unspecified Status: Acute Assessment and Plan: Monitor renal function and electrolytes closely and replace as needed. Nephrology following. (3) Chronic anemia: Code(s): D64.9 - Anemia, unspecified Status: Acute Assessment and Plan: Microcytic anemia suggests blood loss or iron deficiency anemia. Workup and manage anemia. Received 1 unit PRBC transfusion. (4) Chronic obstructive pulmonary disease: Code(s): J44.9 - Chronic obstructive pulmonary disease, unspecified Status: Acute (5) Pulmonary hypertension: Code(s): I27.20 - Pulmonary hypertension, unspecified Status: Acute Assessment and Plan: Probably due to a combination of GUANCAO and COPD, and diastolic dysfunction. (6) Obstructive sleep apnea: Code(s): G47.33 - Obstructive sleep apnea (adult) (pediatric) Status: Acute Subjective Date/time seen: 11/25/21 08:26 Reports breathing is improving but still has some sob. No chest pains. Exam Const: General: cooperative, healthy appearing and comfortable Nutritional Appearance: obese Resp: Auscultation: no crackles, no rales, no rhonchi, no wheezes and diminished lung sounds Cardio: Jugular venous distension: no JVD Rate: regular rate Rhythm: regular rhythm Heart sounds: no murmurs GI: GI Palp: No abdominal tenderness and Yes Soft to palpation Neuro: General: oriented to person, oriented to place and oriented to time Extrem: Right lower extremity: edema Left lower extremity: edema Other: Mild edema of both legs Objective Data Vital Signs Vital Signs: Vital Signs - 24 hr 11/24/21 12:00 11/24/21 14:00 11/24/21 14:28 Temperature 97.2 F L Pulse Rate 70 72 Respiratory Rate 18 Blood Pressure 102/52 L Pulse Oximetry 98 96 11/24/21 16:00 11/24/21 20:00 11/24/21 21:16 Temperature Pulse Rate 72 76 Respiratory Rate 18 Blood Pressure Pulse Oximetry 94 89 L 11/24/21 21:21 11/25/21 00:00 11/25/21 04:00 Temperature 98.0 F Pulse Rate 75 80 83 Respiratory Rate 18 Blood Pressure 105/55 L Pulse Oximetry 94 11/25/21 04:45 11/25/21 05:15 11/25/21 06:00 Temperature 98.3 F Pulse Rate 77 79 Respiratory Rate 18 Blood Pressure 105/52 L Pulse Oximetry 80 L 94 94 Intake/Output Intake/Output: Intake & Output 11/22/21 11/23/21 11/24/21 11/25/21 23:59 23:59 23:59 23:59 Intake Total 2090 2330 1460 800 Output Total 1600 1800 2325 900 Balance 490 549 -714 -713 Meds/Results Medications: Active Medications Generic Name Dose Route Start Last Admin Trade Name Freq PRN Reason Stop Dose Admin Albuterol 1 puff 11/21/21 14:00 11/25/21 03:00 Albuterol Sulfate (*Sp) Aerosol 1 Puff INHALATION 1 puff Q6HRT EMIR Administration Atorvastatin Calcium 40 mg 11/20/21 09:00 11/24/21 09:31 Atorvastatin 40 Mg Tablet PO 40 mg DAILY EMIR Administration Dextrose 12.5 gm
[2021-11-25] MEDS: UMECLIDINIUM/VILANTEROL 62.5-25 MCG ELLIPTA 1 PUFF INHALATION (08:28)
[2021-11-25 08:32] LABS: Glucose Point of Care 106 mg/dl (65-105)
[2021-11-25] MEDS: GABAPENTIN 100 MG CAPSULE PO ×3 (09:03→16:22)
[2021-11-25] MEDS: guaiFENesin 12 HR 600 MG TABCR 1200 MG PO ×2 (09:03→19:56)
[2021-11-25] MEDS: ATORVASTATIN 40 MG TABLET PO (09:03)
[2021-11-25] MEDS: EZETIMIBE 10 MG TABLET PO (09:04)
[2021-11-25] MEDS: POLYSACCHARIDE IRON COMPLEX 150 MG CAPSULE PO ×2 (09:04→16:22)
[2021-11-25] MEDS: PANTOPRAZOLE 40 MG TABLET PO ×2 (09:04→16:22)
--- NOTE | 2021-11-25 09:45 | P.PNIM_ITS ---
Progress Note: A&P Assessment and Plan (1) Acute exacerbation of congestive heart failure: Code(s): I50.9 - Heart failure, unspecified Status: Acute Assessment and Plan: * Acute diastolic exacerbation of heart failure * Lasix 40 mg IV Q8hr * Dr. Hopkins following and diuresing patient, treating cardiomyopathy/HTN/CHF * Strict I/O * Daily weights * Check ECHO - showed MV severe calcification, EF 65-70%, moderate TV regurg, severe pulm HTN with paP 69, right atrial pressure elevated. * CT scan showed 10 x 6 mm left lower lobe nodule with macroscopic fat attenuation unchanged since 09/08/2019 consistent with a hamartoma. Smooth septal line thickening at the bilateral lung bases consistent with mild pulmonary edema. Enlargement of the central pulmonary arteries consistent with pulmonary arterial hypertension. Cardiomegaly with prominent right atrial enlargement. Atherosclerotic coronary artery calcification. Tiny pericardial effusion. No pleural effusion. * BNP 3690 * Trend BP, BP is 105/52 (2) Renal failure: Code(s): N19 - Unspecified kidney failure Status: Acute Assessment and Plan: * Creatinine is better today at 1.60 * Monitor her renal function closely while diuresing * Avoid nephrotoxins * Appreciate nephrology consult * Keep MAPS >65 , BPs stable today 105/52 (3) Chronic anemia: Code(s): D64.9 - Anemia, unspecified Status: Acute Assessment and Plan: * Hemoglobin is stable but remains in the mid sevens 7.5 today * Continue iron supplementation * Also continue PPI as she was noted to have gastritis on EGD in September 2021 * Iron supplementation and continues anemia, combined with her significantly increased O2 requirement and soft BPs, * 1 unit RBC with 20 lasix 11/21/21 * transfusing as needed. (4) Hypertension: Qualifiers: Hypertension type: essential hypertension Qualified Code(s): I10 - Essential (primary) hypertension Code(s): I10 - Essential (primary) hypertension Status: Acute Assessment and Plan: * Blood pressures stable, soft sometimes, SBPs 90-100s. * Monitor closely while diuresing * holding norvasc and losartan at this time (5) COPD (chronic obstructive pulmonary disease): Qualifiers: COPD type: unspecified COPD Qualified Code(s): J44.9 - Chronic obstructive pulmonary disease, unspecified Code(s): J44.9 - Chronic obstructive pulmonary disease, unspecified Status: Chronic Assessment and Plan: * possible acute exacerbation today with CO2 retention and increased O2 requirement * ordered mucinex and inhaler scheduled. * appreciate pulmonary consult * unable to continue her non-formulary maintenance inhalers * She was on 5 L NC this morning, desaturated during her meal, and was placed on 15L high-flow nasal cannula. * Despite diuresis, she is having increasing O2 requirement * ABG was near normal - some CO2 retention. 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
--- NOTE | 2021-11-25 09:45 | PM.IMPN ---
Progress Note: A&P Assessment and Plan (1) Acute exacerbation of congestive heart failure: Code(s): I50.9 - Heart failure, unspecified Status: Acute Assessment and Plan: Acute diastolic exacerbation of heart failure Lasix [address] Hopkins following and diuresing patient, treating cardiomyopathy/HTN/CHF Strict I/O Daily weights Check ECHO - showed MV severe calcification, EF 65-70%, moderate TV regurg, severe pulm HTN with paP 69, right atrial pressure elevated. CT scan showed 10 x 6 mm left lower lobe nodule with macroscopic fat attenuation unchanged since 09/08/2019 consistent with a hamartoma. Smooth septal line thickening at the bilateral lung bases consistent with mild pulmonary edema. Enlargement of the central pulmonary arteries consistent with pulmonary arterial hypertension. Cardiomegaly with prominent right atrial enlargement. Atherosclerotic coronary artery calcification. Tiny pericardial effusion. No pleural effusion. BNP 3690 Trend BP, BP is 105/52 (2) Renal failure: Code(s): N19 - Unspecified kidney failure Status: Acute Assessment and Plan: Creatinine is better today at 1.60 Monitor her renal function closely while diuresing Avoid nephrotoxins Appreciate nephrology consult Keep MAPS >65 , BPs stable today 105/52 (3) Chronic anemia: Code(s): D64.9 - Anemia, unspecified Status: Acute Assessment and Plan: Hemoglobin is stable but remains in the mid sevens 7.5 today Continue iron supplementation Also continue PPI as she was noted to have gastritis on EGD in September 2021 Iron supplementation and continues anemia, combined with her significantly increased O2 requirement and soft BPs, 1 unit RBC with 20 lasix 11/21/21 transfusing as needed. (4) Hypertension: Qualifiers: Hypertension type: essential hypertension Qualified Code(s): I10 - Essential (primary) hypertension Code(s): I10 - Essential (primary) hypertension Status: Acute Assessment and Plan: Blood pressures stable, soft sometimes, SBPs 90-100s. Monitor closely while diuresing holding norvasc and losartan at this time (5) COPD (chronic obstructive pulmonary disease): Qualifiers: COPD type: unspecified COPD Qualified Code(s): J44.9 - Chronic obstructive pulmonary disease, unspecified Code(s): J44.9 - Chronic obstructive pulmonary disease, unspecified Status: Chronic Assessment and Plan: possible acute exacerbation today with CO2 retention and increased O2 requirement ordered mucinex and inhaler scheduled. appreciate pulmonary consult unable to continue her non-formulary maintenance inhalers She was on 5 L NC this morning, desaturated during her meal, and was placed on 15L high-flow nasal cannula. Despite diuresis, she is having increasing O2 requirement ABG was near normal - some CO2 retention. RT is working to wean down her O2 requirement again Wonder if there is a PE Continue Anoro ellipta 1 puff inh daily and albuterol (6) Diabetes mellitus: Qualifiers: Diabetes mellitus complication status: with hyperglycemia Diabetes mellitus residential insulin use: without residential use Diabetes mellitus type: type 2 Qualified Code(s): E11.65 - Type 2 diabetes mellitus with hyperglycemia Code(s): E11.9 - Type 2 diabetes mellitus without complications Status: Chronic Assessment and Plan: Continue sliding scale insulin, Accu-Cheks, and hypoglycemic protocol Monitor follow accuchecks glycemic control controlled at this time, glucose 110s today (7) Generalized weakness: Code(s): R53.1 - Weakness Status: Acute Assessment and Plan: Related to deconditioning, weight gain, and chronic comorbidities PT/OT consulted Patient needs significant PT/OT before returning to home/[place] Fall precautions (8) Hypokal
[2021-11-25 11:28] LABS: Glucose Point of Care 126 mg/dl (65-105)
[2021-11-25 13:33] LABS: Basophils Percent Auto 0.4 % (0.2-1.2); Eosinophils Absolute Auto 0.2 K/mm3 (0-0.3); Eosinophils Percent Auto 2.2 % (0-4.4); Hemoglobin 7.9 g/dL (12.0-15.0); Immature Granulocyte Absolute 0.03 K/mm3 (0.00-0.031); Immature Granulocyte Percent A 0.4 % (0-0.5); Immature Platelet Fraction Pct 4.4 % (0.9-11.2); Lymphocytes Absolute Auto 0.71 K/mm3 (0.9-3.2); Mean Corpuscular HGB Conc 29.3 g/dl (32-36); Mean Corpuscular Hemoglobin 21.6 pg (26-34); Mean Platelet Volume 10.1 fl (7.4-10.4); Monocytes Absolute Auto 0.5 K/mm3 (0.1-0.6); Monocytes Percent Auto 5.7 % (2.6-8.5); Neutrophils Absolute Auto 6.5 K/mm3 (1.3-6.7); Neutrophils Percent Auto 82.3 % (45.5-73.1); Platelet Count Result 257 k/mm3 (150-375); Red Blood Count 3.65 M/mm3 (4.2-5.4); Red Cell Distribution Width 21.9 % (11.5-14.5); White Blood Count 7.9 K/mm3 (4.5-10.0)
[2021-11-25 13:51] LABS: Alanine Aminotransferase 10 U/L (4-35); Albumin Level 3.6 g/dL (3.5-5.1); Alkaline Phosphatase 126 U/L (38-126); Anion Gap 8 mmol/L (8-16); Aspartate Amino Transferase 38 U/L (14-36); Bilirubin,Total 0.9 mg/dL (0.2-1.3); Blood Urea Nitrogen 38 mg/dL (7-17); Calcium 9.2 mg/dL (8.4-10.2); Carbon Dioxide 32 mmol/L (22-30); Chloride 98 mmol/L (98-107); Estimated CRCL calculation 52 ml/min; Estimated Glomerular Filt Rate 39; Glucose 154 mg/dL (65-110); Potassium 3.7 mmol/L (3.4-5.0); Sodium 138 mmol/L (137-145)
[2021-11-25 13:57] LABS: Hypochromasia 2+ (NORMAL); Ovalocytes 2+ (NORMAL); Platelet Estimate Adequate (Adequate); Tear Drop Cells 2+ (NORMAL)
[2021-11-25 13:58] LABS: Burr Cells 1+ (NORMAL)
--- NOTE | 2021-11-25 14:32 | P.PNNP_ITS ---
Progress Note: A&P Assessment and Plan (1) SAMARA (acute kidney injury): Code(s): N17.9 - Acute kidney failure, unspecified Status: Acute Assessment and Plan: * as noted on admission - improving * suspect multifactorial: * CHF exacerbation * relative hypotension * cardiorenal syndrome (and associated chronic prerenal azotemia) * severe pulmonary HTN * anemia * relatively stable at this time * follow-up on urine electrolytes, urine eosinophils, and renal ultrasound * follow trend of renal function and UOP (2) CKD (chronic kidney disease): Code(s): N18.9 - Chronic kidney disease, unspecified Status: Acute Assessment and Plan: * creatinine has fluctuated ~ 0.9 - 1.3mg/dl in the last year * likely due to HTN, DM, vascular disease, and CHF with necessity of diuretic therapy (3) Acute exacerbation of CHF (congestive heart failure): Qualifiers: Heart failure type: systolic Qualified Code(s): I50.23 - Acute on chronic systolic (congestive) heart failure Code(s): I50.9 - Heart failure, unspecified Status: Acute Assessment and Plan: * Cardiology following * on IV diuretic therapy * maximize efforts to optimize blood pressure * urine output better - still is positive fluid balance * diuretic gtt is an another option * adding dopamine to help with hemodynamics which might help with diuresis (would defer this decision to Cardiology) * follow trend of diuresis and I/Os (4) Anemia: Code(s): D64.9 - Anemia, unspecified Status: Chronic Assessment and Plan: * some what of a chronic issue * possibly worsened by acute illness and renal dysfunction * s/p PRBC transfusion * follow trend of H/H (5) Hypertension: Code(s): I10 - Essential (primary) hypertension Status: Chronic Assessment and Plan: * not an issue at this time * BP on the soft/relatively low at this time * follow trend of hemodynamics (6) Diabetes mellitus: Qualifiers: Diabetes mellitus complication status: with hyperglycemia Diabetes mellitus penitentiary insulin use: without laborer marine terminal use Diabetes mellitus type: type 2 Qualified Code(s): E11.65 - Type 2 diabetes mellitus with hyperglycemia Code(s): E11.9 - Type 2 diabetes mellitus without complications Status: Chronic Assessment and Plan: * follow accuchecks * glycemic control Will continue to follow. Subjective Date/time seen: 11/25/21 14:32 She states she is breathing better and her swelling seems be improving as well; respiratory status still seems tenuous and her lower extremity edema persists; continues to make reasonably urine output with diuretic therapy; no issues over night or earlier this AM. Exam Narrative: General: WD/WN AA female in NAD Heart: normal S1 and S2; no rub Lungs: decreased with bibasilar crackles Abdomen: soft, nontender, nondistended, positive bowel sounds Extremities: no cyanosis or clubbing; 2 - 3+ edema Skin: warm and dry Objective Data Vital Signs Vital Signs: Vital Signs Temp Pulse Resp BP Pulse Ox 11/25/21 14:31 114/68 11/25/21 14:15 100 11/25/21 12:00 74 11/25/21 09:08 80 92 11/25/21 09:00 77 91 11/25/21 08:55 72 78 L 11/25/21 08:40 76 98 11/25/21 08:30 73 100 11/25/21 0
--- NOTE | 2021-11-25 14:32 | PM.PNNEP ---
Progress Note: A&P Assessment and Plan (1) SAMARA (acute kidney injury): Code(s): N17.9 - Acute kidney failure, unspecified Status: Acute Assessment and Plan: as noted on admission - improving suspect multifactorial: CHF exacerbation relative hypotension cardiorenal syndrome (and associated chronic prerenal azotemia) severe pulmonary HTN anemia relatively stable at this time follow-up on urine electrolytes, urine eosinophils, and renal ultrasound follow trend of renal function and UOP (2) CKD (chronic kidney disease): Code(s): N18.9 - Chronic kidney disease, unspecified Status: Acute Assessment and Plan: creatinine has fluctuated ~ 0.9 - 1.3mg/dl in the last year likely due to HTN, DM, vascular disease, and CHF with necessity of diuretic therapy (3) Acute exacerbation of CHF (congestive heart failure): Qualifiers: Heart failure type: systolic Qualified Code(s): I50.23 - Acute on chronic systolic (congestive) heart failure Code(s): I50.9 - Heart failure, unspecified Status: Acute Assessment and Plan: Cardiology following on IV diuretic therapy maximize efforts to optimize blood pressure urine output better - still is positive fluid balance diuretic gtt is an another option adding dopamine to help with hemodynamics which might help with diuresis (would defer this decision to Cardiology) follow trend of diuresis and I/Os (4) Anemia: Code(s): D64.9 - Anemia, unspecified Status: Chronic Assessment and Plan: some what of a chronic issue possibly worsened by acute illness and renal dysfunction s/p PRBC transfusion follow trend of H/H (5) Hypertension: Code(s): I10 - Essential (primary) hypertension Status: Chronic Assessment and Plan: not an issue at this time BP on the soft/relatively low at this time follow trend of hemodynamics (6) Diabetes mellitus: Qualifiers: Diabetes mellitus complication status: with hyperglycemia Diabetes mellitus senior living insulin use: without termite control technician use Diabetes mellitus type: type 2 Qualified Code(s): E11.65 - Type 2 diabetes mellitus with hyperglycemia Code(s): E11.9 - Type 2 diabetes mellitus without complications Status: Chronic Assessment and Plan: follow accuchecks glycemic control Will continue to follow. Subjective Date/time seen: 11/25/21 14:32 She states she is breathing better and her swelling seems be improving as well; respiratory status still seems tenuous and her lower extremity edema persists; continues to make reasonably urine output with diuretic therapy; no issues overnight or earlier this AM. Exam Narrative: General: WD/WN AA female in NAD Heart: normal S1 and S2; no rub Lungs: decreased with bibasilar crackles Abdomen: soft, nontender, nondistended, positive bowel sounds Extremities: no cyanosis or clubbing; 2 - 3+ edema Skin: warm and dry Objective Data Vital Signs Vital Signs: Vital Signs Temp Pulse Resp BP Pulse Ox 11/25/21 14:31 114/68 11/25/21 14:15 100 11/25/21 12:00 74 11/25/21 09:08 80 92 11/25/21 09:00 77 91 11/25/21 08:55 72 78 L 11/25/21 08:40 76 98 11/25/21 08:30 73 100 11/25/21 08:00 75 92 11/25/21 06:00 36.8 C 79 18 105/52 L 94 11/25/21 05:15 77 94 11/25/21 04:45 80 L 11/25/21 04:00 83 11/25/21 02:30 36.9 C 79 18 92 11/25/21 00:00 80 11/24/21 21:21 36.7 C 75 18 105/55 L 94 11/24/21 21:16 89 L 11/24/21 20:00 76 18 94 Intake/Output Intake/Output: Intake & Output 11/22/21 11/23/21 11/24/21 11/25/21 23:59 23:59 23:59 23:59 Intake Total 2090 2330 1460 1280 Output Total 1600 1800 2325 900 Balance 490 530 -865 380 Meds/Results Medications: Active Medications Generic Name Dose Route Start Last Admin Trade Name Freq PRN Allegra
--- NOTE | 2021-11-25 15:10 | PC.NURSE ---
On 11/25/21, the student, [ Lin Ybarra], provided care and completed [facility] documentation on this patient. I have reviewed the student's documentation and agree with the findings.
--- NOTE | 2021-11-25 15:13 | PC.NURSE ---
On 11/25/21, the student, [ Ana Rousseau], provided care and completed [facility] documentation on this patient. I have reviewed the student's documentation and agree with the findings.
[2021-11-25 17:14] LABS: Glucose Point of Care 113 mg/dl (65-105)
[2021-11-25 23:52] LABS: Glucose Point of Care 127 mg/dl (65-105)
[2021-11-26] VITALS (13 sets, daily range): BP systolic 95–112; BP diastolic 55–60; PULSE 73–126; RESP 16–22; TEMP 36.4–36.7; O2SAT 91–98
[2021-11-26] MEDS: ALBUTEROL SULFATE (*SP) AEROSOL 1 PUFF INHALATION ×4 (02:00→21:58)
[2021-11-26] MEDS: FUROSEMIDE INJ 40 MG/4 ML VIAL IV PUSH ×3 (05:13→21:47)
--- NOTE | 2021-11-26 07:42 | PM.PNCARD ---
Progress Note: A&P Assessment and Plan (1) Acute exacerbation of congestive heart failure: Code(s): I50.9 - Heart failure, unspecified Status: Acute Assessment and Plan: Acute on chronic mild diastolic heart failure. No systolic dysfunction or systolic heart failure and no valvular heart disease. She is third spacing in lungs, abdomen, and legs and low intravascular volume primarily due to pulmonary hypertension and possible cirrhosis of liver. Volume overload due to a combination of acute on chronic mild diastolic heart failure, worsening CKD due to cardiorenal syndrome, severe pulmonary hypertension, high output failure from anemia and possible cirrhosis of liver. Difficult to keep euvolemic due to cardiorenal syndrome. On Lasix 40 mg IV Q8HR. She is improving clinically with less sob and edema of legs. If this does not work then consider lasix drip or renal dose dopamine to enhance diuresis. Wean oxygen off as tolerated. (2) CKD (chronic kidney disease): Code(s): N18.9 - Chronic kidney disease, unspecified Status: Acute Assessment and Plan: Monitor renal function and electrolytes closely and replace as needed. Nephrology following. (3) Chronic anemia: Code(s): D64.9 - Anemia, unspecified Status: Acute Assessment and Plan: Microcytic anemia suggests blood loss or iron deficiency anemia. Workup and manage anemia. Received 1 unit PRBC transfusion. (4) Chronic obstructive pulmonary disease: Code(s): J44.9 - Chronic obstructive pulmonary disease, unspecified Status: Acute (5) Pulmonary hypertension: Code(s): I27.20 - Pulmonary hypertension, unspecified Status: Acute Assessment and Plan: Probably due to a combination of GUANACO and COPD, and diastolic dysfunction. (6) Obstructive sleep apnea: Code(s): G47.33 - Obstructive sleep apnea (adult) (pediatric) Status: Acute Subjective Date/time seen: 11/26/21 07:42 Reports breathing is improving. No chest pains. Exam Const: General: cooperative, healthy appearing and comfortable Nutritional Appearance: obese Resp: Auscultation: no crackles, no rales, no rhonchi, no wheezes and diminished lung sounds Cardio: Jugular venous distension: no JVD Rate: regular rate Rhythm: regular rhythm Heart sounds: no murmurs GI: GI Palp: No abdominal tenderness and Yes Soft to palpation Neuro: General: oriented to person, oriented to place and oriented to time Extrem: Right lower extremity: edema Left lower extremity: edema Other: Mild edema of both legs Objective Data Vital Signs Vital Signs: Vital Signs - 24 hr 11/25/21 08:00 11/25/21 08:30 11/25/21 08:40 Temperature Pulse Rate 75 73 76 Respiratory Rate Blood Pressure Pulse Oximetry 92 100 98 11/25/21 08:55 11/25/21 09:00 11/25/21 09:08 Temperature Pulse Rate 72 77 80 Respiratory Rate Blood Pressure Pulse Oximetry 78 L 91 92 11/25/21 12:00 11/25/21 14:15 11/25/21 14:31 Temperature Pulse Rate 74 Respiratory Rate Blood Pressure 114/68 Pulse Oximetry 100 11/25/21 14:34 11/25/21 14:40 11/25/21 14:46 Temperature Pulse Rate Respiratory Rate Blood Pressure Pulse Oximetry 92 84 L 92 11/25/21 16:00 11/25/21 20:00 11/25/21 20:05 Temperature Pulse Rate 73 69 Respiratory Rate 22 H Blood Pressure Pulse Oximetry 92 92 11/25/21 22:00 11/25/21 23:45 11/26/21 00:00 Temperature 98.3 F Pulse Rate 72 74 Respiratory Rate 18 Blood Pressure 107/60 Pulse Oximetry 98 92 11/26/21 02:00 11/26/21 02:50 11/26/21 04:00 Temperature Pulse Rate 78 Respiratory Rate 22 H Blood Pressure Pulse Oximetry 92 92 11/26/21 06:00 Temperature 98.1 F Pulse Rate 74 Respiratory Rate 20 Blood Pressure 95/55 L Pulse Oximetry 98 Intake/Output Intake/Output: Intake & Output 11/23/21 11/24/21 11/25/21 11/26/21 23:59 23:59 23:59 23:59 Intake Total
[2021-11-26 07:55] LABS: Basophils Percent Auto 0.4 % (0.2-1.2); Eosinophils Absolute Auto 0.2 K/mm3 (0-0.3); Eosinophils Percent Auto 2.3 % (0-4.4); Hematocrit 26.2 % (37.0-47.0); Hemoglobin 7.5 g/dL (12.0-15.0); Immature Granulocyte Absolute 0.02 K/mm3 (0.00-0.031); Immature Granulocyte Percent A 0.3 % (0-0.5); Immature Platelet Fraction Pct 5.7 % (0.9-11.2); Lymphocytes Absolute Auto 0.82 K/mm3 (0.9-3.2); Mean Corpuscular HGB Conc 28.6 g/dl (32-36); Mean Corpuscular Hemoglobin 21.4 pg (26-34); Mean Corpuscular Volume 74.9 fl (80-100); Mean Platelet Volume 10.7 fl (7.4-10.4); Monocytes Absolute Auto 0.4 K/mm3 (0.1-0.6); Neutrophils Absolute Auto 5.4 K/mm3 (1.3-6.7); Platelet Count Result 237 k/mm3 (150-375); Red Cell Distribution Width 22.3 % (11.5-14.5); White Blood Count 6.8 K/mm3 (4.5-10.0)
[2021-11-26 08:15] LABS: Glucose Point of Care 115 mg/dl (65-105)
[2021-11-26 08:22] LABS: Alanine Aminotransferase 8 U/L (4-35); Albumin Level 3.3 g/dL (3.5-5.1); Alkaline Phosphatase 122 U/L (38-126); Anion Gap 5 mmol/L (8-16); Aspartate Amino Transferase 37 U/L (14-36); Bilirubin,Total 0.7 mg/dL (0.2-1.3); Blood Urea Nitrogen 39 mg/dL (7-17); Calcium 9.1 mg/dL (8.4-10.2); Carbon Dioxide 32 mmol/L (22-30); Chloride 100 mmol/L (98-107); Estimated CRCL calculation 49 ml/min; Estimated Glomerular Filt Rate 37; Glucose 120 mg/dL (65-110); Potassium 3.6 mmol/L (3.4-5.0); Sodium 137 mmol/L (137-145)
[2021-11-26] MEDS: UMECLIDINIUM/VILANTEROL 62.5-25 MCG ELLIPTA 1 PUFF INHALATION (08:32)
--- NOTE | 2021-11-26 10:00 | P.PNIM_ITS ---
Progress Note: A&P Assessment and Plan (1) Acute exacerbation of congestive heart failure: Code(s): I50.9 - Heart failure, unspecified Status: Acute Assessment and Plan: * Acute diastolic exacerbation of heart failure * Lasix 40 mg IV Q8hr * Dr. Hopkins following and diuresing patient, treating cardiomyopathy/HTN/CHF * Strict I/O * Daily weights * Check ECHO - showed MV severe calcification, EF 65-70%, moderate TV regurg, severe pulm HTN with paP 69, right atrial pressure elevated. * CT scan showed 10 x 6 mm left lower lobe nodule with macroscopic fat attenuation unchanged since 09/08/2019 consistent with a hamartoma. Smooth septal line thickening at the bilateral lung bases consistent with mild pulmonary edema. Enlargement of the central pulmonary arteries consistent with pulmonary arterial hypertension. Cardiomegaly with prominent right atrial enlargement. Atherosclerotic coronary artery calcification. Tiny pericardial effusion. No pleural effusion. * BNP 3690, recheck in the am * Trend BP, BP is 95/55 (2) Renal failure: Code(s): N19 - Unspecified kidney failure Status: Acute Assessment and Plan: * Creatinine is better today at 1.70 * Monitor her renal function closely while diuresing * Avoid nephrotoxins * Appreciate nephrology consult * Keep MAPS >65 , BPs stable today 95/55 (3) Chronic anemia: Code(s): D64.9 - Anemia, unspecified Status: Acute Assessment and Plan: * Hemoglobin is stable but remains in the mid sevens 7.5 today * Continue iron supplementation * Also continue PPI as she was noted to have gastritis on EGD in September 2021 * Iron supplementation and continues anemia, combined with her significantly increased O2 requirement and soft BPs, * 1 unit RBC with 20 lasix 11/21/21 * transfusing as needed. (4) Hypertension: Qualifiers: Hypertension type: essential hypertension Qualified Code(s): I10 - Essential (primary) hypertension Code(s): I10 - Essential (primary) hypertension Status: Acute Assessment and Plan: * Blood pressures stable, soft sometimes, SBPs 90-100s. * Monitor closely while diuresing * holding norvasc and losartan at this time (5) COPD (chronic obstructive pulmonary disease): Qualifiers: COPD type: unspecified COPD Qualified Code(s): J44.9 - Chronic obstructive pulmonary disease, unspecified Code(s): J44.9 - Chronic obstructive pulmonary disease, unspecified Status: Chronic Assessment and Plan: * possible acute exacerbation today with CO2 retention and increased O2 requirement * ordered mucinex and inhaler scheduled. * appreciate pulmonary consult * unable to continue her non-formulary maintenance inhalers * Continue airvo * Despite diuresis, she is having increasing O2 requirement * ABG was near normal - some CO2 retention. * RT is working to wean down her O2 requirement again * Wonder if there is a PE * Continue Anoro ellipta 1 puff inh daily and albuterol (6) Diabetes mellitus: Qualifiers: Diabetes mellitus type: type 2 Diabetes mellitus extermination supervisor insulin use: without extermination supervisor use Diabetes mellitus complication status: with hyperglycemia Qualified Code(s): E11.65 - Type 2 diabetes mellitus with hyperglycemia Code(s): E11.9 - Type 2 diabetes mellitus without complications Status: Chronic Assessment and Plan: Continue sliding scale insulin, Accu-Cheks, and hypoglycemic pro
--- NOTE | 2021-11-26 10:00 | PM.IMPN ---
Progress Note: A&P Assessment and Plan (1) Acute exacerbation of congestive heart failure: Code(s): I50.9 - Heart failure, unspecified Status: Acute Assessment and Plan: Acute diastolic exacerbation of heart failure Lasix [address] Hopkins following and diuresing patient, treating cardiomyopathy/HTN/CHF Strict I/O Daily weights Check ECHO - showed MV severe calcification, EF 65-70%, moderate TV regurg, severe pulm HTN with paP 69, right atrial pressure elevated. CT scan showed 10 x 6 mm left lower lobe nodule with macroscopic fat attenuation unchanged since 09/08/2019 consistent with a hamartoma. Smooth septal line thickening at the bilateral lung bases consistent with mild pulmonary edema. Enlargement of the central pulmonary arteries consistent with pulmonary arterial hypertension. Cardiomegaly with prominent right atrial enlargement. Atherosclerotic coronary artery calcification. Tiny pericardial effusion. No pleural effusion. BNP 3690, recheck in the am Trend BP, BP is 95/55 (2) Renal failure: Code(s): N19 - Unspecified kidney failure Status: Acute Assessment and Plan: Creatinine is better today at 1.70 Monitor her renal function closely while diuresing Avoid nephrotoxins Appreciate nephrology consult Keep MAPS >65 , BPs stable today 95/55 (3) Chronic anemia: Code(s): D64.9 - Anemia, unspecified Status: Acute Assessment and Plan: Hemoglobin is stable but remains in the mid sevens 7.5 today Continue iron supplementation Also continue PPI as she was noted to have gastritis on EGD in September 2021 Iron supplementation and continues anemia, combined with her significantly increased O2 requirement and soft BPs, 1 unit RBC with 20 lasix 11/21/21 transfusing as needed. (4) Hypertension: Qualifiers: Hypertension type: essential hypertension Qualified Code(s): I10 - Essential (primary) hypertension Code(s): I10 - Essential (primary) hypertension Status: Acute Assessment and Plan: Blood pressures stable, soft sometimes, SBPs 90-100s. Monitor closely while diuresing holding norvasc and losartan at this time (5) COPD (chronic obstructive pulmonary disease): Qualifiers: COPD type: unspecified COPD Qualified Code(s): J44.9 - Chronic obstructive pulmonary disease, unspecified Code(s): J44.9 - Chronic obstructive pulmonary disease, unspecified Status: Chronic Assessment and Plan: possible acute exacerbation today with CO2 retention and increased O2 requirement ordered mucinex and inhaler scheduled. appreciate pulmonary consult unable to continue her non-formulary maintenance inhalers Continue airvo Despite diuresis, she is having increasing O2 requirement ABG was near normal - some CO2 retention. RT is working to wean down her O2 requirement again Wonder if there is a PE Continue Anoro ellipta 1 puff inh daily and albuterol (6) Diabetes mellitus: Qualifiers: Diabetes mellitus type: type 2 Diabetes mellitus fdc insulin use: without fdc use Diabetes mellitus complication status: with hyperglycemia Qualified Code(s): E11.65 - Type 2 diabetes mellitus with hyperglycemia Code(s): E11.9 - Type 2 diabetes mellitus without complications Status: Chronic Assessment and Plan: Continue sliding scale insulin, Accu-Cheks, and hypoglycemic protocol Monitor follow accuchecks glycemic control controlled at this time, glucose 120s today (7) Generalized weakness: Code(s): R53.1 - Weakness Status: Acute Assessment and Plan: Related to deconditioning, weight gain, and chronic comorbidities PT/OT consulted Patient needs significant PT/OT before returning to home/[place] Fall precautions (8) Hypokalemia: Code(s): E87.6 - Hypokalemia Status: Acute Asse
[2021-11-26] MEDS: POLYSACCHARIDE IRON COMPLEX 150 MG CAPSULE PO ×2 (10:40→17:12)
[2021-11-26] MEDS: ATORVASTATIN 40 MG TABLET PO (10:41)
[2021-11-26] MEDS: guaiFENesin 12 HR 600 MG TABCR 1200 MG PO ×2 (10:41→21:46)
[2021-11-26] MEDS: GABAPENTIN 100 MG CAPSULE PO ×3 (10:41→17:12)
[2021-11-26] MEDS: EZETIMIBE 10 MG TABLET PO (10:41)
[2021-11-26] MEDS: PANTOPRAZOLE 40 MG TABLET PO ×2 (10:42→17:13)
[2021-11-26 12:17] LABS: Glucose Point of Care 125 mg/dl (65-105)
--- NOTE | 2021-11-26 12:43 | P.PNNP_ITS ---
Progress Note: A&P Assessment and Plan (1) SAMARA (acute kidney injury): Code(s): N17.9 - Acute kidney failure, unspecified Status: Acute Assessment and Plan: * as noted on admission - improving * suspect multifactorial: * CHF exacerbation * relative hypotension * cardiorenal syndrome (and associated chronic prerenal azotemia) * severe pulmonary HTN * anemia * Urine electrolytes are pre renal. * Creatinine slightly better than on admission. Stable for the last 3 days. * Intake/ output slightly positive. * She is on furosemide 40 Q 8. * The patient has significant Swelling probably secondary to her pulmonary hypertension. * will continue diuretics. May have to be satisfied with a slightly higher than baseline creatinine to keep the fluid off. (2) CKD (chronic kidney disease): Code(s): N18.9 - Chronic kidney disease, unspecified Status: Acute Assessment and Plan: * creatinine has fluctuated ~ 0.9 - 1.3mg/dl in the last year * likely due to HTN, DM, vascular disease, and CHF with necessity of diuretic therapy (3) Acute exacerbation of CHF (congestive heart failure): Qualifiers: Heart failure type: systolic Qualified Code(s): I50.23 - Acute on chronic systolic (congestive) heart failure Code(s): I50.9 - Heart failure, unspecified Status: Acute Assessment and Plan: * Cardiology following * on IV diuretic therapy * maximize efforts to optimize blood pressure * urine output better - still is positive fluid balance * diuretic gtt is an another option * adding dopamine to help with hemodynamics which might help with diuresis (would defer this decision to Cardiology) * Echo shows pulmonary hypertension with good LV function. Does have diastolic dysfunction as well. * On Lasix. (4) Anemia: Code(s): D64.9 - Anemia, unspecified Status: Chronic Assessment and Plan: * some what of a chronic issue * possibly worsened by acute illness and renal dysfunction * s/p PRBC transfusion * Will start Epogen (5) Hypertension: Code(s): I10 - Essential (primary) hypertension Status: Chronic Assessment and Plan: * not an issue at this time * BP on the soft/relatively low at this time * follow trend of hemodynamics (6) Diabetes mellitus: Qualifiers: Diabetes mellitus type: type 2 Diabetes mellitus draw bench operator insulin use: without fdc use Diabetes mellitus complication status: with hyperglycemia Qualified Code(s): E11.65 - Type 2 diabetes mellitus with hyperglycemia Code(s): E11.9 - Type 2 diabetes mellitus without complications Status: Chronic Assessment and Plan: * on Accu-Cheks and sliding-scale insulin Will continue to follow. Subjective Date/time seen: 11/26/21 12:43 Interval history: The patient feels better. Less short of breath. She ate a good lunch. Exam Narrative: General: WD/WN AA female in NAD Heart: normal S1 and S2; no rub Or gallop Lungs: decreased with bibasilar crackles Abdomen: soft, nontender, nondistended, positive bowel sounds Extremities: no cyanosis or clubbing; 2 - 3+ edema Skin: no rash. Chronic venous stasis changes. Objective Data Vital Signs Vital Signs: Vital Signs - 24 hr 11/25/21 14:15 11/25/21 14:31 11/25/21 14:34 Temperature Pulse Rate Respiratory Rate Blood Pressure
--- NOTE | 2021-11-26 12:43 | PM.PNNEP ---
Progress Note: A&P Assessment and Plan (1) SAMARA (acute kidney injury): Code(s): N17.9 - Acute kidney failure, unspecified Status: Acute Assessment and Plan: as noted on admission - improving suspect multifactorial: CHF exacerbation relative hypotension cardiorenal syndrome (and associated chronic prerenal azotemia) severe pulmonary HTN anemia Urine electrolytes are pre renal. Creatinine slightly better than on admission. Stable for the last 3 days. Intake/ output slightly positive. She is on furosemide 40 Q 8. The patient has significant Swelling probably secondary to her pulmonary hypertension. will continue diuretics. May have to be satisfied with a slightly higher than baseline creatinine to keep the fluid off. (2) CKD (chronic kidney disease): Code(s): N18.9 - Chronic kidney disease, unspecified Status: Acute Assessment and Plan: creatinine has fluctuated ~ 0.9 - 1.3mg/dl in the last year likely due to HTN, DM, vascular disease, and CHF with necessity of diuretic therapy (3) Acute exacerbation of CHF (congestive heart failure): Qualifiers: Heart failure type: systolic Qualified Code(s): I50.23 - Acute on chronic systolic (congestive) heart failure Code(s): I50.9 - Heart failure, unspecified Status: Acute Assessment and Plan: Cardiology following on IV diuretic therapy maximize efforts to optimize blood pressure urine output better - still is positive fluid balance diuretic gtt is an another option adding dopamine to help with hemodynamics which might help with diuresis (would defer this decision to Cardiology) Echo shows pulmonary hypertension with good LV function. Does have diastolic dysfunction as well. On Lasix. (4) Anemia: Code(s): D64.9 - Anemia, unspecified Status: Chronic Assessment and Plan: some what of a chronic issue possibly worsened by acute illness and renal dysfunction s/p PRBC transfusion Will start Epogen (5) Hypertension: Code(s): I10 - Essential (primary) hypertension Status: Chronic Assessment and Plan: not an issue at this time BP on the soft/relatively low at this time follow trend of hemodynamics (6) Diabetes mellitus: Qualifiers: Diabetes mellitus type: type 2 Diabetes mellitus exterminator helper insulin use: without jail use Diabetes mellitus complication status: with hyperglycemia Qualified Code(s): E11.65 - Type 2 diabetes mellitus with hyperglycemia Code(s): E11.9 - Type 2 diabetes mellitus without complications Status: Chronic Assessment and Plan: on Accu-Cheks and sliding-scale insulin Will continue to follow. Subjective Date/time seen: 11/26/21 12:43 Interval history: The patient feels better. Less short of breath. She ate a good lunch. Exam Narrative: General: WD/WN AA female in NAD Heart: normal S1 and S2; no rub Or gallop Lungs: decreased with bibasilar crackles Abdomen: soft, nontender, nondistended, positive bowel sounds Extremities: no cyanosis or clubbing; 2 - 3+ edema Skin: no rash. Chronic venous stasis changes. Objective Data Vital Signs Vital Signs: Vital Signs - 24 hr 11/25/21 14:15 11/25/21 14:31 11/25/21 14:34 Temperature Pulse Rate Respiratory Rate Blood Pressure 114/68 Pulse Oximetry 100 92 11/25/21 14:40 11/25/21 14:46 11/25/21 16:00 Temperature Pulse Rate 73 Respiratory Rate Blood Pressure Pulse Oximetry 84 L 92 11/25/21 20:00 11/25/21 20:05 11/25/21 22:00 Temperature 36.8 C Pulse Rate 69 72 Respiratory Rate 22 H 18 Blood Pressure 107/60 Pulse Oximetry 92 92 98 11/25/21 23:45 11/26/21 00:00 11/26/21 02:00 Temperature Pulse Rate 74 Respiratory Rate 22 H Blood Pressure Pulse Oximetry 92 92 11/26/21 02:50 11/26/21 04:00 11/26/21 06:00 Temperature 36.7 C
[2021-11-26] MEDS: polyethylene glycoL 3350 17 GM POWD.PACK PO (13:06)
--- NOTE | 2021-11-26 13:20 | PCNWS ---
Weekly nutritional screen. Pt screened in for 7 day length of stay. Patient is tolerating current diet with reported intake of 50% x3 and 100% x2. RDN placed orders for dietary supplement of Glucerna Shake BID providing an additional 220kcal and 10g of protein. No weight loss reported. No nutritional needs at this time.
[2021-11-26] MEDS: SENNA/DOCUSATE SODIUM TABLET 1 TAB PO (13:26)
[2021-11-26] MEDS: EPOETIN ALFA 10,000 UNITS/ML VIAL 10000 UNITS SUB-Q (13:58)
[2021-11-26 17:11] LABS: Glucose Point of Care 151 mg/dl (65-105)
[2021-11-27] VITALS (12 sets, daily range): BP systolic 98–122; BP diastolic 54–69; PULSE 72–87; RESP 14–20; TEMP 36.1–36.8; O2SAT 85–93
[2021-11-27 02:41] LABS: Glucose Point of Care 117 mg/dl (65-105)
[2021-11-27] MEDS: ALBUTEROL SULFATE (*SP) AEROSOL 1 PUFF INHALATION ×3 (03:29→19:54)
[2021-11-27] MEDS: FUROSEMIDE INJ 40 MG/4 ML VIAL IV PUSH (06:01)
[2021-11-27 06:45] LABS: Basophils Percent Auto 0.3 % (0.2-1.2); Eosinophils Absolute Auto 0.2 K/mm3 (0-0.3); Eosinophils Percent Auto 2.1 % (0-4.4); Hematocrit 25.1 % (37.0-47.0); Hemoglobin 7.3 g/dL (12.0-15.0); Immature Granulocyte Absolute 0.03 K/mm3 (0.00-0.031); Immature Granulocyte Percent A 0.4 % (0-0.5); Immature Platelet Fraction Pct 4.7 % (0.9-11.2); Lymphocytes Absolute Auto 0.79 K/mm3 (0.9-3.2); Lymphocytes Percent Auto 10.5 % (18.3-44.2); Mean Corpuscular HGB Conc 29.1 g/dl (32-36); Mean Corpuscular Hemoglobin 21.6 pg (26-34); Mean Corpuscular Volume 74.3 fl (80-100); Mean Platelet Volume 10.3 fl (7.4-10.4); Monocytes Absolute Auto 0.5 K/mm3 (0.1-0.6); Neutrophils Absolute Auto 6.1 K/mm3 (1.3-6.7); Neutrophils Percent Auto 80.7 % (45.5-73.1); Platelet Count Result 224 k/mm3 (150-375); Red Blood Count 3.38 M/mm3 (4.2-5.4); Red Cell Distribution Width 21.7 % (11.5-14.5); White Blood Count 7.5 K/mm3 (4.5-10.0)
[2021-11-27 06:59] LABS: Potassium 3.7 mmol/L (3.4-5.0)
[2021-11-27 07:22] LABS: Platelet Estimate Adequate (Adequate)
[2021-11-27 07:23] LABS: Anisocytosis 2+ (NORMAL); Hypochromasia 2+ (NORMAL); Ovalocytes 1+ (NORMAL); Target Cells 1+ (NORMAL)
[2021-11-27 07:30] LABS: Alanine Aminotransferase 10 U/L (4-35); Albumin Level 3.5 g/dL (3.5-5.1); Alkaline Phosphatase 122 U/L (38-126); Anion Gap 5 mmol/L (8-16); Aspartate Amino Transferase 38 U/L (14-36); Blood Urea Nitrogen 39 mg/dL (7-17); Carbon Dioxide 32 mmol/L (22-30); Chloride 99 mmol/L (98-107); Estimated CRCL calculation 60 ml/min; Estimated Glomerular Filt Rate 46; Glucose 113 mg/dL (65-110); Phosphorus 3.9 mg/dL (2.5-4.5); Sodium 136 mmol/L (137-145)
[2021-11-27 07:57] LABS: Glucose Point of Care 106 mg/dl (65-105)
--- NOTE | 2021-11-27 08:44 | PM.PNCARD ---
Progress Note: A&P Assessment and Plan (1) Acute exacerbation of congestive heart failure: Code(s): I50.9 - Heart failure, unspecified Status: Acute Assessment and Plan: Acute on chronic mild diastolic heart failure. No systolic dysfunction or systolic heart failure and no valvular heart disease. She is third spacing in lungs, abdomen, and legs and low intravascular volume primarily due to pulmonary hypertension and possible cirrhosis of liver. Volume overload due to a combination of acute on chronic mild diastolic heart failure, worsening CKD due to cardiorenal syndrome, severe pulmonary hypertension, high output failure from anemia and possible cirrhosis of liver. Difficult to keep euvolemic due to cardiorenal syndrome. On Lasix 40 mg IV Q8HR. She is improving clinically with less sob and edema of legs. If this does not work then consider lasix drip or renal dose dopamine to enhance diuresis. Wean oxygen off as tolerated. Add Spironolactone 12.5 mg daily as her BP is better today to enhance diuresis and treatment for HRpEF. (2) CKD (chronic kidney disease): Code(s): N18.9 - Chronic kidney disease, unspecified Status: Acute Assessment and Plan: Monitor renal function and electrolytes closely and replace as needed. Nephrology following. (3) Chronic anemia: Code(s): D64.9 - Anemia, unspecified Status: Acute Assessment and Plan: Microcytic anemia suggests blood loss or iron deficiency anemia. Workup and manage anemia. Received 1 unit PRBC transfusion. (4) Chronic obstructive pulmonary disease: Code(s): J44.9 - Chronic obstructive pulmonary disease, unspecified Status: Acute (5) Pulmonary hypertension: Code(s): I27.20 - Pulmonary hypertension, unspecified Status: Acute Assessment and Plan: Probably due to a combination of GUANACO and COPD, and diastolic dysfunction. (6) Obstructive sleep apnea: Code(s): G47.33 - Obstructive sleep apnea (adult) (pediatric) Status: Acute Subjective Date/time seen: 11/27/21 08:44 Reports breathing is better. No chest pains. Exam Const: General: cooperative, healthy appearing and comfortable Nutritional Appearance: obese Resp: Auscultation: no crackles, no rales, no rhonchi, wheezes and diminished lung sounds Cardio: Jugular venous distension: no JVD Rate: regular rate Rhythm: regular rhythm Heart sounds: no murmurs GI: GI Palp: No abdominal tenderness and Yes Soft to palpation Neuro: General: oriented to person, oriented to place and oriented to time Extrem: Right lower extremity: edema Left lower extremity: edema Other: Mild edema of both legs Objective Data Vital Signs Vital Signs: Vital Signs - 24 hr 11/26/21 12:00 11/26/21 14:00 11/26/21 16:00 Temperature 97.5 F L Pulse Rate 75 76 80 Respiratory Rate 18 Blood Pressure 112/56 L Pulse Oximetry 98 11/26/21 20:00 11/26/21 22:30 11/27/21 00:00 Temperature 97.9 F Pulse Rate 74 126 H 76 Respiratory Rate 16 Blood Pressure 104/60 Pulse Oximetry 98 98 11/27/21 03:29 11/27/21 04:00 11/27/21 05:45 Temperature 97.0 F L Pulse Rate 76 72 Respiratory Rate 20 Blood Pressure 122/69 Pulse Oximetry 90 92 Intake/Output Intake/Output: Intake & Output 11/24/21 11/25/21 11/26/21 11/27/21 23:59 23:59 23:59 23:59 Intake Total 1460 2410 2640 Output Total 2325 1900 1650 1200 Balance -865 510 990 -1200 Meds/Results Medications: Active Medications Generic Name Dose Route Start Last Admin Trade Name Freq PRN Reason Stop Dose Admin Albuterol 1 puff 11/21/21 14:00 11/27/21 03:29 Albuterol Sulfate (*Sp) Aerosol 1 Puff INHALATION 1 puff Q6HRT EMIR Administration Atorvastatin Calcium 40 mg 11/20/21 09:00 11/26/21 10:41 Atorvastatin 40 Mg Tablet PO 40 mg DAILY EMIR Administration Dextrose 12.5 gm 11/20/21 00:35 Dextrose 50% 25 Gm/50 Ml Syringe IV PUSH PRN PRN Hy
[2021-11-27] MEDS: EZETIMIBE 10 MG TABLET PO (08:47)
[2021-11-27] MEDS: GABAPENTIN 100 MG CAPSULE PO ×3 (08:47→18:44)
[2021-11-27] MEDS: PANTOPRAZOLE 40 MG TABLET PO ×2 (08:47→18:44)
[2021-11-27] MEDS: POLYSACCHARIDE IRON COMPLEX 150 MG CAPSULE PO ×2 (08:47→18:44)
[2021-11-27] MEDS: SENNA/DOCUSATE SODIUM TABLET 1 TAB PO (08:47)
[2021-11-27] MEDS: guaiFENesin 12 HR 600 MG TABCR 1200 MG PO ×2 (08:47→21:44)
[2021-11-27] MEDS: polyethylene glycoL 3350 17 GM POWD.PACK PO (08:48)
[2021-11-27] MEDS: ATORVASTATIN 40 MG TABLET PO (08:48)
--- NOTE | 2021-11-27 09:30 | PM.IMPN ---
Progress Note: A&P Assessment and Plan (1) Acute exacerbation of congestive heart failure: Code(s): I50.9 - Heart failure, unspecified Status: Acute Assessment and Plan: Acute diastolic exacerbation of heart failure Lasix 40 mg IV Q8hr, consider to change to Bumex 1mg IV Q8hr Dr. Hopkins following and diuresing patient, treating cardiomyopathy/HTN/CHF Strict I/O Daily weights Check ECHO - showed MV severe calcification, EF 65-70%, moderate TV regurg, severe pulm HTN with paP 69, right atrial pressure elevated. CT scan showed 10 x 6 mm left lower lobe nodule with macroscopic fat attenuation unchanged since 09/08/2019 consistent with a hamartoma. Smooth septal line thickening at the bilateral lung bases consistent with mild pulmonary edema. Enlargement of the central pulmonary arteries consistent with pulmonary arterial hypertension. Cardiomegaly with prominent right atrial enlargement. Atherosclerotic coronary artery calcification. Tiny pericardial effusion. No pleural effusion. BNP 3690, recheck in the am, since it was not ordered this am Trend BP, BP is 95/55 (2) Renal failure: Code(s): N19 - Unspecified kidney failure Status: Acute Assessment and Plan: Creatinine is better today at 1.40 Monitor her renal function closely while diuresing Avoid nephrotoxins Appreciate nephrology consult Keep MAPS >65 , BPs stable today 122/69 (3) Chronic anemia: Code(s): D64.9 - Anemia, unspecified Status: Acute Assessment and Plan: Hemoglobin is stable but remains in the mid sevens 7.3 today Continue iron supplementation Also continue PPI as she was noted to have gastritis on EGD in September 2021 Iron supplementation and continues anemia, combined with her significantly increased O2 requirement and soft BPs, 1 unit RBC with 20 lasix 11/21/21 transfusing as needed. (4) Hypertension: Qualifiers: Hypertension type: essential hypertension Qualified Code(s): I10 - Essential (primary) hypertension Code(s): I10 - Essential (primary) hypertension Status: Acute Assessment and Plan: Blood pressures stable, soft sometimes, SBPs 90-100s. Monitor closely while diuresing holding norvasc and losartan at this time (5) COPD (chronic obstructive pulmonary disease): Qualifiers: COPD type: unspecified COPD Qualified Code(s): J44.9 - Chronic obstructive pulmonary disease, unspecified Code(s): J44.9 - Chronic obstructive pulmonary disease, unspecified Status: Chronic Assessment and Plan: possible acute exacerbation today with CO2 retention and increased O2 requirement ordered mucinex and inhaler scheduled. appreciate pulmonary consult unable to continue her non-formulary maintenance inhalers Continue airvo Despite diuresis, she is having increasing O2 requirement ABG was near normal - some CO2 retention. RT is working to wean down her O2 requirement again Wonder if there is a PE Continue Anoro ellipta 1 puff inh daily and albuterol (6) Diabetes mellitus: Qualifiers: Diabetes mellitus type: type 2 Diabetes mellitus correction insulin use: without correction use Diabetes mellitus complication status: with hyperglycemia Qualified Code(s): E11.65 - Type 2 diabetes mellitus with hyperglycemia Code(s): E11.9 - Type 2 diabetes mellitus without complications Status: Chronic Assessment and Plan: Continue sliding scale insulin, Accu-Cheks, and hypoglycemic protocol Monitor follow accuchecks glycemic control controlled at this time, glucose 113 today (7) Generalized weakness: Code(s): R53.1 - Weakness Status: Acute Assessment and Plan: Related to deconditioning, weight gain, and chronic comorbidities PT/OT consulted Patient needs significant PT/OT before returning to home/[place] Fall precautions (8) Hypokalem
--- NOTE | 2021-11-27 09:30 | P.PNIM_ITS ---
Progress Note: A&P Assessment and Plan (1) Acute exacerbation of congestive heart failure: Code(s): I50.9 - Heart failure, unspecified Status: Acute Assessment and Plan: * Acute diastolic exacerbation of heart failure * Lasix 40 mg IV Q8hr, consider to change to Bumex 1mg IV Q8hr * Dr. Hopkins following and diuresing patient, treating cardiomyopathy/HTN/CHF * Strict I/O * Daily weights * Check ECHO - showed MV severe calcification, EF 65-70%, moderate TV regurg, severe pulm HTN with paP 69, right atrial pressure elevated. * CT scan showed 10 x 6 mm left lower lobe nodule with macroscopic fat attenuation unchanged since 09/08/2019 consistent with a hamartoma. Smooth septal line thickening at the bilateral lung bases consistent with mild pulmonary edema. Enlargement of the central pulmonary arteries consistent with pulmonary arterial hypertension. Cardiomegaly with prominent right atrial enlargement. Atherosclerotic coronary artery calcification. Tiny pericardial effusion. No pleural effusion. * BNP 3690, recheck in the am, since it was not ordered this am * Trend BP, BP is 95/55 (2) Renal failure: Code(s): N19 - Unspecified kidney failure Status: Acute Assessment and Plan: * Creatinine is better today at 1.40 * Monitor her renal function closely while diuresing * Avoid nephrotoxins * Appreciate nephrology consult * Keep MAPS >65 , BPs stable today 122/69 (3) Chronic anemia: Code(s): D64.9 - Anemia, unspecified Status: Acute Assessment and Plan: * Hemoglobin is stable but remains in the mid sevens 7.3 today * Continue iron supplementation * Also continue PPI as she was noted to have gastritis on EGD in September 2021 * Iron supplementation and continues anemia, combined with her significantly increased O2 requirement and soft BPs, * 1 unit RBC with 20 lasix 11/21/21 * transfusing as needed. (4) Hypertension: Qualifiers: Hypertension type: essential hypertension Qualified Code(s): I10 - Essential (primary) hypertension Code(s): I10 - Essential (primary) hypertension Status: Acute Assessment and Plan: * Blood pressures stable, soft sometimes, SBPs 90-100s. * Monitor closely while diuresing * holding norvasc and losartan at this time (5) COPD (chronic obstructive pulmonary disease): Qualifiers: COPD type: unspecified COPD Qualified Code(s): J44.9 - Chronic obstructive pulmonary disease, unspecified Code(s): J44.9 - Chronic obstructive pulmonary disease, unspecified Status: Chronic Assessment and Plan: * possible acute exacerbation today with CO2 retention and increased O2 requirement * ordered mucinex and inhaler scheduled. * appreciate pulmonary consult * unable to continue her non-formulary maintenance inhalers * Continue airvo * Despite diuresis, she is having increasing O2 requirement * ABG was near normal - some CO2 retention. * RT is working to wean down her O2 requirement again * Wonder if there is a PE * Continue Anoro ellipta 1 puff inh daily and albuterol (6) Diabetes mellitus: Qualifiers: Diabetes mellitus type: type 2 Diabetes mellitus senior care insulin use: without regional intermodal truck driver use Diabetes mellitus complication status: with hyperglycemia Qualified Code(s): E11.65 - Type 2 diabetes mellitus with hyperglycemia Code(s): E11.9 - Type 2 diabetes mellitus without complications Status: Chronic Assessment and P
[2021-11-27] MEDS: UMECLIDINIUM/VILANTEROL 62.5-25 MCG ELLIPTA 1 PUFF INHALATION (09:45)
--- NOTE | 2021-11-27 10:35 | P.PNNP_ITS ---
Progress Note: A&P Assessment and Plan (1) SAMARA (acute kidney injury): Code(s): N17.9 - Acute kidney failure, unspecified Status: Acute Assessment and Plan: * as noted on admission - improving * suspect multifactorial: * CHF exacerbation * relative hypotension * cardiorenal syndrome (and associated chronic prerenal azotemia) * severe pulmonary HTN * anemia * Urine electrolytes are pre renal. * She probably has renal venous hypertension causing the elevated creatinine. Her creatinine seems to be improving with diuretics. * Creatinine is improved today to 1.4. Her baseline creatinine is normal. * Intake/ output slightly positive. * She is on furosemide 40 Q 8. * The patient has significant Swelling probably secondary to her pulmonary hypertension. * will continue diuretics. (2) CKD (chronic kidney disease): Code(s): N18.9 - Chronic kidney disease, unspecified Status: Acute Assessment and Plan: * creatinine has fluctuated ~ 0.9 - 1.3mg/dl in the last year * likely due to HTN, DM, vascular disease, and CHF with necessity of diuretic therapy (3) Acute exacerbation of CHF (congestive heart failure): Qualifiers: Heart failure type: systolic Qualified Code(s): I50.23 - Acute on chronic systolic (congestive) heart failure Code(s): I50.9 - Heart failure, unspecified Status: Acute Assessment and Plan: * Cardiology following * on IV diuretic therapy * maximize efforts to optimize blood pressure * urine output better - still is positive fluid balance * diuretic gtt is an another option * adding dopamine to help with hemodynamics which might help with diuresis (would defer this decision to Cardiology) * Echo shows pulmonary hypertension with good LV function. Does have diastolic dysfunction as well. * On Lasix 40 Q a. (4) Anemia: Code(s): D64.9 - Anemia, unspecified Status: Chronic Assessment and Plan: * some what of a chronic issue * possibly worsened by acute illness and renal dysfunction * s/p PRBC transfusion * On Epogen (5) Hypertension: Code(s): I10 - Essential (primary) hypertension Status: Chronic Assessment and Plan: * not an issue at this time * BP on the soft/relatively low at this time * follow trend of hemodynamics (6) Diabetes mellitus: Qualifiers: Diabetes mellitus type: type 2 Diabetes mellitus middle or intermediate school principal insulin use: without senior living use Diabetes mellitus complication status: with hyperglycemia Qualified Code(s): E11.65 - Type 2 diabetes mellitus with hyperglycemia Code(s): E11.9 - Type 2 diabetes mellitus without complications Status: Chronic Assessment and Plan: * on Accu-Cheks and sliding-scale insulin Will continue to follow. Subjective Date/time seen: 11/27/21 10:35 Interval history: The patient feels better. Less short of breath. Still some swelling. Exam Narrative: General: WD/WN AA female in NAD Heart: normal S1 and S2; no rub Or gallop Lungs: decreased with bibasilar crackles Abdomen: soft, nontender, nondistended, positive bowel sounds Extremities: no cyanosis or clubbing; 2 - 3+ edema Skin: no rash. Chronic venous stasis changes. Objective Data Vital Signs Vital Signs: Vital Signs - 24 hr 11/26/21 12:00 11/26/21 14:00 11/26/21 16:00 Temperature 36.4 C L Pulse Rate 75 76 80
--- NOTE | 2021-11-27 10:35 | PM.PNNEP ---
Progress Note: A&P Assessment and Plan (1) SAMARA (acute kidney injury): Code(s): N17.9 - Acute kidney failure, unspecified Status: Acute Assessment and Plan: as noted on admission - improving suspect multifactorial: CHF exacerbation relative hypotension cardiorenal syndrome (and associated chronic prerenal azotemia) severe pulmonary HTN anemia Urine electrolytes are pre renal. She probably has renal venous hypertension causing the elevated creatinine. Her creatinine seems to be improving with diuretics. Creatinine is improved today to 1.4. Her baseline creatinine is normal. Intake/ output slightly positive. She is on furosemide 40 Q 8. The patient has significant Swelling probably secondary to her pulmonary hypertension. will continue diuretics. (2) CKD (chronic kidney disease): Code(s): N18.9 - Chronic kidney disease, unspecified Status: Acute Assessment and Plan: creatinine has fluctuated ~ 0.9 - 1.3mg/dl in the last year likely due to HTN, DM, vascular disease, and CHF with necessity of diuretic therapy (3) Acute exacerbation of CHF (congestive heart failure): Qualifiers: Heart failure type: systolic Qualified Code(s): I50.23 - Acute on chronic systolic (congestive) heart failure Code(s): I50.9 - Heart failure, unspecified Status: Acute Assessment and Plan: Cardiology following on IV diuretic therapy maximize efforts to optimize blood pressure urine output better - still is positive fluid balance diuretic gtt is an another option adding dopamine to help with hemodynamics which might help with diuresis (would defer this decision to Cardiology) Echo shows pulmonary hypertension with good LV function. Does have diastolic dysfunction as well. On Lasix 40 Q a. (4) Anemia: Code(s): D64.9 - Anemia, unspecified Status: Chronic Assessment and Plan: some what of a chronic issue possibly worsened by acute illness and renal dysfunction s/p PRBC transfusion On Epogen (5) Hypertension: Code(s): I10 - Essential (primary) hypertension Status: Chronic Assessment and Plan: not an issue at this time BP on the soft/relatively low at this time follow trend of hemodynamics (6) Diabetes mellitus: Qualifiers: Diabetes mellitus type: type 2 Diabetes mellitus assisted insulin use: without termite inspector use Diabetes mellitus complication status: with hyperglycemia Qualified Code(s): E11.65 - Type 2 diabetes mellitus with hyperglycemia Code(s): E11.9 - Type 2 diabetes mellitus without complications Status: Chronic Assessment and Plan: on Accu-Cheks and sliding-scale insulin Will continue to follow. Subjective Date/time seen: 11/27/21 10:35 Interval history: The patient feels better. Less short of breath. Still some swelling. Exam Narrative: General: WD/WN AA female in NAD Heart: normal S1 and S2; no rub Or gallop Lungs: decreased with bibasilar crackles Abdomen: soft, nontender, nondistended, positive bowel sounds Extremities: no cyanosis or clubbing; 2 - 3+ edema Skin: no rash. Chronic venous stasis changes. Objective Data Vital Signs Vital Signs: Vital Signs - 24 hr 11/26/21 12:00 11/26/21 14:00 11/26/21 16:00 Temperature 36.4 C L Pulse Rate 75 76 80 Respiratory Rate 18 Blood Pressure 112/56 L Pulse Oximetry 98 11/26/21 20:00 11/26/21 22:30 11/27/21 00:00 Temperature 36.6 C Pulse Rate 74 126 H 76 Respiratory Rate 16 Blood Pressure 104/60 Pulse Oximetry 98 98 11/27/21 03:29 11/27/21 04:00 11/27/21 05:45 Temperature 36.1 C L Pulse Rate 76 72 Respiratory Rate 20 Blood Pressure 122/69 Pulse Oximetry 90 92 11/27/21 09:46 Temperature Pulse Rate Respiratory Rate Blood Pressure Pulse Oximetry 90 Intake/Output Intake/Output: Intake & Output 11/24/21
[2021-11-27 11:27] LABS: Glucose Point of Care 135 mg/dl (65-105)
[2021-11-27] MEDS: SPIRONOLACTONE 12.5 MG TABLET PO (12:27)
[2021-11-27] MEDS: BUMETANIDE INJ 2.5 MG/10 ML VIAL 2 MG IV PUSH (15:10)
[2021-11-27 16:03] LABS: Glucose Point of Care 177 mg/dl (65-105)
[2021-11-28] VITALS (10 sets, daily range): BP systolic 88–113; BP diastolic 51–72; PULSE 68–87; RESP 18–24; TEMP 36.2–36.8; O2SAT 87–96
[2021-11-28] MEDS: ALBUTEROL SULFATE (*SP) AEROSOL 1 PUFF INHALATION ×4 (01:53→21:58)
[2021-11-28 08:10] LABS: Albumin Level 3.5 g/dL (3.5-5.1); Anion Gap 6 mmol/L (8-16); Blood Urea Nitrogen 37 mg/dL (7-17); Calcium 9.1 mg/dL (8.4-10.2); Carbon Dioxide 32 mmol/L (22-30); Chloride 98 mmol/L (98-107); Estimated CRCL calculation 56 ml/min; Estimated Glomerular Filt Rate 43; Glucose 108 mg/dL (65-110); Phosphorus 3.6 mg/dL (2.5-4.5); Potassium 3.8 mmol/L (3.4-5.0); Sodium 136 mmol/L (137-145)
[2021-11-28 08:13] LABS: Glucose Point of Care 108 mg/dl (65-105)
--- NOTE | 2021-11-28 08:16 | P.PNNP_ITS ---
Progress Note: A&P Assessment and Plan (1) SAMARA (acute kidney injury): Code(s): N17.9 - Acute kidney failure, unspecified Status: Acute Assessment and Plan: * as noted on admission - improving * suspect multifactorial: * CHF exacerbation * relative hypotension * cardiorenal syndrome (and associated chronic prerenal azotemia) * severe pulmonary HTN * anemia * Urine electrolytes are pre renal. * She probably has renal venous hypertension causing the elevated creatinine. Her creatinine seems to be improving with diuretics. * Her creatinine seems to have stabilized in the mid 1s. * She has had better creatinine is in the past but order to keep the fluid off we may have to be satisfied with a mildly elevated creatinine. * Intake/ output not impressively negative. * She is on Lasix 40mg every 8hours. Yesterday changed to Bumex to see if we could get better drug availability (intake/output improved) and today add metolazone for a couple of days to try to get rid of some of this fluid burden (2) CKD (chronic kidney disease): Code(s): N18.9 - Chronic kidney disease, unspecified Status: Acute Assessment and Plan: * creatinine has fluctuated ~ 0.9 - 1.3mg/dl in the last year * likely due to HTN, DM, vascular disease, and CHF with necessity of diuretic therapy (3) Acute exacerbation of CHF (congestive heart failure): Qualifiers: Heart failure type: systolic Qualified Code(s): I50.23 - Acute on chronic systolic (congestive) heart failure Code(s): I50.9 - Heart failure, unspecified Status: Acute Assessment and Plan: * Cardiology following * Echo shows severe pulmonary hypertension and [id number] tricuspid regurgitation. LV is good except for some grade 1 diastolic dysfunction. * Sometimes getting rid of the fluid improves the components of the tricuspid valve so for get rid of the edema, may be the creatinine will continue to improve. * on IV diuretic therapy * Increase diuretics (4) Anemia: Code(s): D64.9 - Anemia, unspecified Status: Chronic Assessment and Plan: * some what of a chronic issue * possibly worsened by acute illness and renal dysfunction * s/p PRBC transfusion * Iron level was low. Will give Venofer * On Epogen (5) Hypertension: Code(s): I10 - Essential (primary) hypertension Status: Chronic Assessment and Plan: * not an issue at this time * BP on the soft/relatively low at this time * On no antihypertensives (6) Diabetes mellitus: Qualifiers: Diabetes mellitus type: type 2 Diabetes mellitus detention insulin use: without detention use Diabetes mellitus complication status: with hyperglycemia Qualified Code(s): E11.65 - Type 2 diabetes mellitus with hyperglycemia Code(s): E11.9 - Type 2 diabetes mellitus without complications Status: Chronic Assessment and Plan: * on Accu-Cheks and sliding-scale insulin Will continue to follow. Subjective Date/time seen: 11/28/21 08:16 Interval history: The patient feels better. Less short of breath. Still some swelling. Exam Narrative: General: WD/WN AA female in NAD Heart: normal S1 and S2; no rub Lungs: decreased with bibasilar crackles Abdomen: soft, nontender, nondistended, positive bowel sounds Extremities: no cyanosis or clubbing; 2 - 3+ bilateral edema Skin: no rash. Chronic venous stasis changes. Objective Data Vital Signs Vital Signs:
--- NOTE | 2021-11-28 08:16 | PM.PNNEP ---
Progress Note: A&P Assessment and Plan (1) SAMARA (acute kidney injury): Code(s): N17.9 - Acute kidney failure, unspecified Status: Acute Assessment and Plan: as noted on admission - improving suspect multifactorial: CHF exacerbation relative hypotension cardiorenal syndrome (and associated chronic prerenal azotemia) severe pulmonary HTN anemia Urine electrolytes are pre renal. She probably has renal venous hypertension causing the elevated creatinine. Her creatinine seems to be improving with diuretics. Her creatinine seems to have stabilized in the mid 1s. She has had better creatinine is in the past but order to keep the fluid off we may have to be satisfied with a mildly elevated creatinine. Intake/ output not impressively negative. She is on Lasix 40mg every 8hours. Yesterday changed to Bumex to see if we could get better drug availability (intake/output improved) and today add metolazone for a couple of days to try to get rid of some of this fluid burden (2) CKD (chronic kidney disease): Code(s): N18.9 - Chronic kidney disease, unspecified Status: Acute Assessment and Plan: creatinine has fluctuated ~ 0.9 - 1.3mg/dl in the last year likely due to HTN, DM, vascular disease, and CHF with necessity of diuretic therapy (3) Acute exacerbation of CHF (congestive heart failure): Qualifiers: Heart failure type: systolic Qualified Code(s): I50.23 - Acute on chronic systolic (congestive) heart failure Code(s): I50.9 - Heart failure, unspecified Status: Acute Assessment and Plan: Cardiology following Echo shows severe pulmonary hypertension and [id number] tricuspid regurgitation. LV is good except for some grade 1 diastolic dysfunction. Sometimes getting rid of the fluid improves the components of the tricuspid valve so for get rid of the edema, may be the creatinine will continue to improve. on IV diuretic therapy Increase diuretics (4) Anemia: Code(s): D64.9 - Anemia, unspecified Status: Chronic Assessment and Plan: some what of a chronic issue possibly worsened by acute illness and renal dysfunction s/p PRBC transfusion Iron level was low. Will give Venofer On Epogen (5) Hypertension: Code(s): I10 - Essential (primary) hypertension Status: Chronic Assessment and Plan: not an issue at this time BP on the soft/relatively low at this time On no antihypertensives (6) Diabetes mellitus: Qualifiers: Diabetes mellitus type: type 2 Diabetes mellitus chcf insulin use: without chcf use Diabetes mellitus complication status: with hyperglycemia Qualified Code(s): E11.65 - Type 2 diabetes mellitus with hyperglycemia Code(s): E11.9 - Type 2 diabetes mellitus without complications Status: Chronic Assessment and Plan: on Accu-Cheks and sliding-scale insulin Will continue to follow. Subjective Date/time seen: 11/28/21 08:16 Interval history: The patient feels better. Less short of breath. Still some swelling. Exam Narrative: General: WD/WN AA female in NAD Heart: normal S1 and S2; no rub Lungs: decreased with bibasilar crackles Abdomen: soft, nontender, nondistended, positive bowel sounds Extremities: no cyanosis or clubbing; 2 - 3+ bilateral edema Skin: no rash. Chronic venous stasis changes. Objective Data Vital Signs Vital Signs: Vital Signs - 24 hr 11/27/21 09:46 11/27/21 12:00 11/27/21 14:00 Temperature 36.8 C Pulse Rate 74 77 Respiratory Rate 14 Blood Pressure 108/55 L Pulse Oximetry 90 93 11/27/21 16:00 11/27/21 20:00 11/27/21 21:35 Temperature Pulse Rate 75 87 Respiratory Rate Blood Pressure Pulse Oximetry 91 11/27/21 22:00 11/28/21 00:00 11/28/21 04:00 Temperature 36.7 C Pulse Rate 86 87 82 Respiratory Rate 20 Blood Pressure 98/54 L Pulse Oximetry 85 L
--- NOTE | 2021-11-28 08:33 | PM.PNCARD ---
Progress Note: A&P Assessment and Plan (1) Acute exacerbation of congestive heart failure: Code(s): I50.9 - Heart failure, unspecified Status: Acute Assessment and Plan: Acute on chronic mild diastolic heart failure. No systolic dysfunction or systolic heart failure and no valvular heart disease. She is third spacing in lungs, abdomen, and legs and low intravascular volume primarily due to pulmonary hypertension and possible cirrhosis of liver. Volume overload due to a combination of acute on chronic mild diastolic heart failure, worsening CKD due to cardiorenal syndrome, severe pulmonary hypertension, high output failure from anemia and possible cirrhosis of liver. Difficult to keep euvolemic due to cardiorenal syndrome. On Lasix 40 mg IV Q8HR changed to Bumetanide 2 mg IV BID. She is improving clinically with less sob and edema of legs. If this does not work then consider lasix drip or renal dose dopamine to enhance diuresis. Wean oxygen off as tolerated. On Spironolactone 12.5 mg daily as her BP is better today to enhance diuresis and treatment for HRpEF. However, given low BP on Bumetanide, will stop Spironolactone. (2) CKD (chronic kidney disease): Code(s): N18.9 - Chronic kidney disease, unspecified Status: Acute Assessment and Plan: Monitor renal function and electrolytes closely and replace as needed. Nephrology following. (3) Chronic anemia: Code(s): D64.9 - Anemia, unspecified Status: Acute Assessment and Plan: Microcytic anemia suggests blood loss or iron deficiency anemia. Workup and manage anemia. Received 1 unit PRBC transfusion. (4) Chronic obstructive pulmonary disease: Code(s): J44.9 - Chronic obstructive pulmonary disease, unspecified Status: Acute (5) Pulmonary hypertension: Code(s): I27.20 - Pulmonary hypertension, unspecified Status: Acute Assessment and Plan: Probably due to a combination of GUANACO and COPD, and diastolic dysfunction. (6) Obstructive sleep apnea: Code(s): G47.33 - Obstructive sleep apnea (adult) (pediatric) Status: Acute Subjective Date/time seen: 11/28/21 08:33 Denies chest pain or sob while sitting at side of bed. Exam Const: General: cooperative, healthy appearing and comfortable Nutritional Appearance: obese Resp: Auscultation: no crackles, no rales, no rhonchi, wheezes and diminished lung sounds Cardio: Jugular venous distension: no JVD Rate: regular rate Rhythm: regular rhythm Heart sounds: no murmurs GI: GI Palp: No abdominal tenderness and Yes Soft to palpation Neuro: General: oriented to person, oriented to place and oriented to time Extrem: Right lower extremity: edema Left lower extremity: edema Other: Mild edema of both legs Objective Data Vital Signs Vital Signs: Vital Signs - 24 hr 11/27/21 09:46 11/27/21 12:00 11/27/21 14:00 Temperature 98.2 F Pulse Rate 74 77 Respiratory Rate 14 Blood Pressure 108/55 L Pulse Oximetry 90 93 11/27/21 16:00 11/27/21 20:00 11/27/21 21:35 Temperature Pulse Rate 75 87 Respiratory Rate Blood Pressure Pulse Oximetry 91 11/27/21 22:00 11/28/21 00:00 11/28/21 04:00 Temperature 98.1 F Pulse Rate 86 87 82 Respiratory Rate 20 Blood Pressure 98/54 L Pulse Oximetry 85 L 11/28/21 06:00 Temperature 97.8 F Pulse Rate 78 Respiratory Rate 20 Blood Pressure 94/51 L Pulse Oximetry 87 L Intake/Output Intake/Output: Intake & Output 11/25/21 11/26/21 11/27/21 11/28/21 23:59 23:59 23:59 23:59 Intake Total 2410 2640 1220 540 Output Total 1900 1650 2225 500 Balance 510 990 -1005 40 Meds/Results Medications: Active Medications Generic Name Dose Route Start Last Admin Trade Name Freq PRN Reason Stop Dose Admin Albuterol 1 puff 11/21/21 14:00 11/28/21 01:53 Albuterol Sulfate (*Sp) Aerosol 1 Puff INHALATION 1 puff Q6HRT EMIR Administration Atorvastatin Calcium 40 mg
[2021-11-28] MEDS: UMECLIDINIUM/VILANTEROL 62.5-25 MCG ELLIPTA 1 PUFF INHALATION (08:59)
--- NOTE | 2021-11-28 09:30 | PM.IMPN ---
Progress Note: A&P Assessment and Plan (1) Acute exacerbation of congestive heart failure: Code(s): I50.9 - Heart failure, unspecified Status: Acute Assessment and Plan: Acute diastolic exacerbation of heart failure changed to Bumex 2mg IV BID Dr. Hopkins following and diuresing patient, treating cardiomyopathy/HTN/CHF Strict I/O Daily weights Check ECHO - showed MV severe calcification, EF 65-70%, moderate TV regurg, severe pulm HTN with paP 69, right atrial pressure elevated. CT scan showed 10 x 6 mm left lower lobe nodule with macroscopic fat attenuation unchanged since 09/08/2019 consistent with a hamartoma. Smooth septal line thickening at the bilateral lung bases consistent with mild pulmonary edema. Enlargement of the central pulmonary arteries consistent with pulmonary arterial hypertension. Cardiomegaly with prominent right atrial enlargement. Atherosclerotic coronary artery calcification. Tiny pericardial effusion. No pleural effusion. BNP 3690, recheck in the am, since it was not ordered this am Trend BP, BP is 94/51 I think that she would benefit from a fluid restriction, started on a 1500ml daily restriction Looking at her I&O she is positive a little over 2L (2) Renal failure: Code(s): N19 - Unspecified kidney failure Status: Acute Assessment and Plan: Creatinine is better today at 1.50 Monitor her renal function closely while diuresing Avoid nephrotoxins Appreciate nephrology consult Keep MAPS >65 , BPs stable today 94/51 (3) Chronic anemia: Code(s): D64.9 - Anemia, unspecified Status: Acute Assessment and Plan: Hemoglobin is stable but remains in the mid sevens 7.3 today Continue iron supplementation Also continue PPI as she was noted to have gastritis on EGD in September 2021 Iron supplementation and continues anemia, combined with her significantly increased O2 requirement and soft BPs, 1 unit RBC 11/21/21 transfusing as needed. (4) Hypertension: Qualifiers: Hypertension type: essential hypertension Qualified Code(s): I10 - Essential (primary) hypertension Code(s): I10 - Essential (primary) hypertension Status: Acute Assessment and Plan: Blood pressures stable, soft sometimes, SBPs 90-100s. Monitor closely while diuresing holding norvasc and losartan at this time (5) COPD (chronic obstructive pulmonary disease): Qualifiers: COPD type: unspecified COPD Qualified Code(s): J44.9 - Chronic obstructive pulmonary disease, unspecified Code(s): J44.9 - Chronic obstructive pulmonary disease, unspecified Status: Chronic Assessment and Plan: possible acute exacerbation today with CO2 retention and increased O2 requirement ordered mucinex and inhaler scheduled. appreciate pulmonary consult unable to continue her non-formulary maintenance inhalers Continue airvo Despite diuresis, she is having increasing O2 requirement ABG was near normal - some CO2 retention. RT is working to wean down her O2 requirement again Wonder if there is a PE Continue Anoro ellipta 1 puff inh daily and albuterol (6) Diabetes mellitus: Qualifiers: Diabetes mellitus complication status: with hyperglycemia Diabetes mellitus retirement insulin use: without ocean transportation intermediary use Diabetes mellitus type: type 2 Qualified Code(s): E11.65 - Type 2 diabetes mellitus with hyperglycemia Code(s): E11.9 - Type 2 diabetes mellitus without complications Status: Chronic Assessment and Plan: Continue sliding scale insulin, Accu-Cheks, and hypoglycemic protocol Monitor follow accuchecks glycemic control controlled at this time, glucose 111 today (7) Generalized weakness: Code(s): R53.1 - Weakness Status: Acute Assessment and Plan: Related to deconditioning, weight gain, and chronic comorbidities PT/OT c
--- NOTE | 2021-11-28 09:30 | P.PNIM_ITS ---
Progress Note: A&P Assessment and Plan (1) Acute exacerbation of congestive heart failure: Code(s): I50.9 - Heart failure, unspecified Status: Acute Assessment and Plan: * Acute diastolic exacerbation of heart failure * changed to Bumex 2mg IV BID * Dr. Hopkins following and diuresing patient, treating cardiomyopathy/HTN/CHF * Strict I/O * Daily weights * Check ECHO - showed MV severe calcification, EF 65-70%, moderate TV regurg, severe pulm HTN with paP 69, right atrial pressure elevated. * CT scan showed 10 x 6 mm left lower lobe nodule with macroscopic fat attenuation unchanged since 09/08/2019 consistent with a hamartoma. Smooth septal line thickening at the bilateral lung bases consistent with mild pulmonary edema. Enlargement of the central pulmonary arteries consistent with pulmonary arterial hypertension. Cardiomegaly with prominent right atrial enlargement. Atherosclerotic coronary artery calcification. Tiny pericardial effusion. No pleural effusion. * BNP 3690, recheck in the am, since it was not ordered this am * Trend BP, BP is 94/51 * I think that she would benefit from a fluid restriction, started on a 1500ml daily restriction * Looking at her I&O she is positive a little over 2L (2) Renal failure: Code(s): N19 - Unspecified kidney failure Status: Acute Assessment and Plan: * Creatinine is better today at 1.50 * Monitor her renal function closely while diuresing * Avoid nephrotoxins * Appreciate nephrology consult * Keep MAPS >65 , BPs stable today 94/51 (3) Chronic anemia: Code(s): D64.9 - Anemia, unspecified Status: Acute Assessment and Plan: * Hemoglobin is stable but remains in the mid sevens 7.3 today * Continue iron supplementation * Also continue PPI as she was noted to have gastritis on EGD in September 2021 * Iron supplementation and continues anemia, combined with her significantly increased O2 requirement and soft BPs, * 1 unit RBC 11/21/21 * transfusing as needed. (4) Hypertension: Qualifiers: Hypertension type: essential hypertension Qualified Code(s): I10 - Essential (primary) hypertension Code(s): I10 - Essential (primary) hypertension Status: Acute Assessment and Plan: * Blood pressures stable, soft sometimes, SBPs 90-100s. * Monitor closely while diuresing * holding norvasc and losartan at this time (5) COPD (chronic obstructive pulmonary disease): Qualifiers: COPD type: unspecified COPD Qualified Code(s): J44.9 - Chronic obstructive pulmonary disease, unspecified Code(s): J44.9 - Chronic obstructive pulmonary disease, unspecified Status: Chronic Assessment and Plan: * possible acute exacerbation today with CO2 retention and increased O2 requirement * ordered mucinex and inhaler scheduled. * appreciate pulmonary consult * unable to continue her non-formulary maintenance inhalers * Continue airvo * Despite diuresis, she is having increasing O2 requirement * ABG was near normal - some CO2 retention. * RT is working to wean down her O2 requirement again * Wonder if there is a PE * Continue Anoro ellipta 1 puff inh daily and albuterol (6) Diabetes mellitus: Qualifiers: Diabetes mellitus complication status: with hyperglycemia Diabetes mellitus control manager insulin use: without senior care use Diabetes mellitus type: type 2 Qualified Code(s): E11.65 - Type 2 diabetes mellitus with hyperglycemia C
[2021-11-28 09:44] LABS: Basophils Percent Auto 0.5 % (0.2-1.2); Eosinophils Absolute Auto 0.2 K/mm3 (0-0.3); Eosinophils Percent Auto 2.1 % (0-4.4); Hematocrit 25.6 % (37.0-47.0); Hemoglobin 7.3 g/dL (12.0-15.0); Immature Granulocyte Absolute 0.03 K/mm3 (0.00-0.031); Immature Granulocyte Percent A 0.4 % (0-0.5); Immature Platelet Fraction Pct 5.8 % (0.9-11.2); Lymphocytes Absolute Auto 0.88 K/mm3 (0.9-3.2); Lymphocytes Percent Auto 11.4 % (18.3-44.2); Mean Corpuscular HGB Conc 28.5 g/dl (32-36); Mean Corpuscular Hemoglobin 21.3 pg (26-34); Mean Corpuscular Volume 74.6 fl (80-100); Mean Platelet Volume 10.1 fl (7.4-10.4); Monocytes Absolute Auto 0.5 K/mm3 (0.1-0.6); Monocytes Percent Auto 6.8 % (2.6-8.5); Neutrophils Absolute Auto 6.1 K/mm3 (1.3-6.7); Neutrophils Percent Auto 78.8 % (45.5-73.1); Platelet Count Result 229 k/mm3 (150-375); Red Blood Count 3.43 M/mm3 (4.2-5.4); Red Cell Distribution Width 21.8 % (11.5-14.5); White Blood Count 7.7 K/mm3 (4.5-10.0)
[2021-11-28 09:54] LABS: Alanine Aminotransferase 10 U/L (4-35); Albumin Level 3.3 g/dL (3.5-5.1); Alkaline Phosphatase 139 U/L (38-126); Anion Gap 8 mmol/L (8-16); Aspartate Amino Transferase 41 U/L (14-36); Bilirubin,Total 0.8 mg/dL (0.2-1.3); Blood Urea Nitrogen 38 mg/dL (7-17); Calcium 9.1 mg/dL (8.4-10.2); Carbon Dioxide 30 mmol/L (22-30); Chloride 98 mmol/L (98-107); Estimated CRCL calculation 56 ml/min; Estimated Glomerular Filt Rate 43; Glucose 111 mg/dL (65-110); Potassium 3.7 mmol/L (3.4-5.0); Sodium 136 mmol/L (137-145)
[2021-11-28 10:03] LABS: NT Pro B Type Natriuretic Pept 6250 pg/mL (5-100)
[2021-11-28 10:45] LABS: Platelet Estimate Adequate (Adequate)
[2021-11-28 10:46] LABS: Acanthocytes 1+ (NORMAL); Anisocytosis 1+ (NORMAL); Hypochromasia 1+ (NORMAL); Ovalocytes 1+ (NORMAL); Target Cells 1+ (NORMAL)
[2021-11-28] MEDS: BUMETANIDE INJ 2.5 MG/10 ML VIAL 2 MG IV PUSH ×2 (11:00→17:42)
[2021-11-28] MEDS: metOLazone 5 MG TABLET PO (11:00)
[2021-11-28] MEDS: EZETIMIBE 10 MG TABLET PO (11:00)
[2021-11-28] MEDS: polyethylene glycoL 3350 17 GM POWD.PACK PO (11:00)
[2021-11-28] MEDS: IRON SUCROSE COMPLEX 200 MG in SODIUM CHLORIDE 0.9% IV 50 ML 120 MG IVPB (11:00)
[2021-11-28] MEDS: GABAPENTIN 100 MG CAPSULE PO ×2 (11:01→17:42)
[2021-11-28] MEDS: guaiFENesin 12 HR 600 MG TABCR 1200 MG PO (11:01)
[2021-11-28] MEDS: ATORVASTATIN 40 MG TABLET PO (11:01)
[2021-11-28] MEDS: PANTOPRAZOLE 40 MG TABLET PO ×2 (11:01→17:42)
[2021-11-28] MEDS: SENNA/DOCUSATE SODIUM TABLET 1 TAB PO (11:01)
[2021-11-28] MEDS: POLYSACCHARIDE IRON COMPLEX 150 MG CAPSULE PO ×2 (11:01→17:42)
[2021-11-28 12:54] LABS: Glucose Point of Care 112 mg/dl (65-105)
--- NOTE | 2021-11-28 13:02 | PCPTNOTE ---
Patient refused treatment this session due to having a bad night. Will plan to continue treatment per plan of care.
[2021-11-28 13:28] LABS: Chloride Rand Ur 21 mmol/L (32-290); Chloride/Creatinine Rand Ur 68 (38-318); Creatinine Random Urine 31 mg/dL (20-275)
[2021-11-28 16:51] LABS: Glucose Point of Care 140 mg/dl (65-105)
--- NOTE | 2021-11-28 22:04 | PCRCNOTE ---
pt cannot wear S9 unit due to high flow oxygen demands.
[2021-11-29] VITALS (7 sets, daily range): BP systolic 98–118; BP diastolic 55–75; PULSE 68–90; RESP 16–20; TEMP 36.3–38; O2SAT 90–96
[2021-11-29] MEDS: guaiFENesin 12 HR 600 MG TABCR 1200 MG PO ×3 (00:44→22:10)
[2021-11-29 01:32] LABS: Glucose Point of Care 114 mg/dl (65-105)
[2021-11-29] MEDS: ALBUTEROL SULFATE (*SP) AEROSOL 1 PUFF INHALATION ×4 (03:40→20:15)
[2021-11-29 07:50] LABS: Basophils Absolute Auto 0.1 K/mm3 (0.0-0.1); Basophils Percent Auto 0.7 % (0.2-1.2); Eosinophils Absolute Auto 0.2 K/mm3 (0-0.3); Hemoglobin 7.5 g/dL (12.0-15.0); Immature Granulocyte Absolute 0.02 K/mm3 (0.00-0.031); Immature Granulocyte Percent A 0.3 % (0-0.5); Immature Platelet Fraction Pct 6.3 % (0.9-11.2); Lymphocytes Absolute Auto 0.82 K/mm3 (0.9-3.2); Lymphocytes Percent Auto 11.1 % (18.3-44.2); Mean Corpuscular HGB Conc 28.8 g/dl (32-36); Mean Corpuscular Hemoglobin 20.8 pg (26-34); Mean Corpuscular Volume 72.2 fl (80-100); Mean Platelet Volume 10.4 fl (7.4-10.4); Monocytes Absolute Auto 0.4 K/mm3 (0.1-0.6); Monocytes Percent Auto 5.5 % (2.6-8.5); Neutrophils Percent Auto 80.4 % (45.5-73.1); Platelet Count Result 215 k/mm3 (150-375); Red Cell Distribution Width 22.3 % (11.5-14.5); White Blood Count 7.4 K/mm3 (4.5-10.0)
--- NOTE | 2021-11-29 07:52 | PM.PNCARD ---
Progress Note: A&P Assessment and Plan (1) Acute exacerbation of congestive heart failure: Code(s): I50.9 - Heart failure, unspecified Status: Acute Assessment and Plan: Acute on chronic mild diastolic heart failure. No systolic dysfunction or systolic heart failure and no valvular heart disease. She is third spacing in lungs, abdomen, and legs and low intravascular volume primarily due to pulmonary hypertension and possible cirrhosis of liver. Volume overload due to a combination of acute on chronic mild diastolic heart failure, worsening CKD due to cardiorenal syndrome, severe pulmonary hypertension, high output failure from anemia and possible cirrhosis of liver. Difficult to keep euvolemic due to cardiorenal syndrome. On Lasix 40 mg IV Q8HR changed to Bumetanide 2 mg IV BID. She is improving clinically with less sob and edema of legs. If this does not work then consider lasix drip or renal dose dopamine to enhance diuresis. Wean oxygen off as tolerated. On Spironolactone 12.5 mg daily as her BP is better today to enhance diuresis and treatment for HRpEF. However, given low BP on Bumetanide, will stop Spironolactone. She is started on Metolozone 5 mg daily today. (2) CKD (chronic kidney disease): Code(s): N18.9 - Chronic kidney disease, unspecified Status: Acute Assessment and Plan: Monitor renal function and electrolytes closely and replace as needed. Nephrology following. (3) Chronic anemia: Code(s): D64.9 - Anemia, unspecified Status: Acute Assessment and Plan: Microcytic anemia suggests blood loss or iron deficiency anemia. Workup and manage anemia. Received 1 unit PRBC transfusion. (4) Chronic obstructive pulmonary disease: Code(s): J44.9 - Chronic obstructive pulmonary disease, unspecified Status: Acute (5) Pulmonary hypertension: Code(s): I27.20 - Pulmonary hypertension, unspecified Status: Acute Assessment and Plan: Probably due to a combination of GUANACO and COPD, and diastolic dysfunction. (6) Obstructive sleep apnea: Code(s): G47.33 - Obstructive sleep apnea (adult) (pediatric) Status: Acute Subjective Date/time seen: 11/29/21 07:52 Denies chest pain or sob. Exam Const: General: cooperative, healthy appearing and comfortable Nutritional Appearance: obese Resp: Auscultation: no crackles, no rales, no rhonchi, wheezes and diminished lung sounds Cardio: Jugular venous distension: no JVD Rate: regular rate Rhythm: regular rhythm Heart sounds: no murmurs GI: GI Palp: No abdominal tenderness and Yes Soft to palpation Neuro: General: oriented to person, oriented to place and oriented to time Extrem: Right lower extremity: edema Left lower extremity: edema Other: Mild edema of both legs Objective Data Vital Signs Vital Signs: Vital Signs - 24 hr 11/28/21 08:00 11/28/21 09:00 11/28/21 12:00 Temperature Pulse Rate 78 80 Respiratory Rate Blood Pressure Pulse Oximetry 91 91 11/28/21 14:00 11/28/21 16:00 11/28/21 20:00 Temperature 98.2 F 97.1 F L Pulse Rate 80 76 68 Respiratory Rate 24 H 18 Blood Pressure 88/54 L 113/72 Pulse Oximetry 91 95 11/28/21 22:01 11/29/21 00:00 11/29/21 04:00 Temperature 97.3 F L 97.8 F Pulse Rate 68 72 Respiratory Rate 18 20 Blood Pressure 108/68 118/75 Pulse Oximetry 91 95 96 Intake/Output Intake/Output: Intake & Output 11/26/21 11/27/21 11/28/21 11/29/21 23:59 23:59 23:59 23:59 Intake Total 2640 1220 2120 700 Output Total 1650 2225 1950 2100 Balance 990 -1005 170 -1400 Meds/Results Medications: Active Medications Generic Name Dose Route Start Last Admin Trade Name Freq PRN Reason Stop Dose Admin Albuterol 1 puff 11/21/21 14:00 11/29/21 03:40 Albuterol Sulfate (*Sp) Aerosol 1 Puff INHALATION 1 puff Q6HRT EMIR Administration Atorvastatin Calcium 40 mg 11/20/21 09:00 11/28/21 11:01 Atorvastatin 40 Mg Tablet
--- NOTE | 2021-11-29 07:55 | P.PNNP_ITS ---
Progress Note: A&P Assessment and Plan (1) SAMARA (acute kidney injury): Code(s): N17.9 - Acute kidney failure, unspecified Status: Acute Assessment and Plan: * as noted on admission - improving * suspect multifactorial: * CHF exacerbation * relative hypotension * cardiorenal syndrome (and associated chronic prerenal azotemia) * severe pulmonary HTN * anemia * Urine electrolytes are pre renal. * She probably has renal venous hypertension causing the elevated creatinine. Her creatinine seems to be improving with diuretics. * Her creatinine seems to have stabilized in the mid 1s. * She has had better creatinine is in the past but order to keep the fluid off we may have to be satisfied with a mildly elevated creatinine. * Since her sodium level is dropping a little I think we should a fistulae fluid restrict her [id number] per day. Hitherto, had just asked the patient to drink less fluid but with the drop in sodium and the high volume intake we will make it a fistula. (2) CKD (chronic kidney disease): Code(s): N18.9 - Chronic kidney disease, unspecified Status: Acute Assessment and Plan: * creatinine has fluctuated ~ 0.9 - 1.3mg/dl in the last year * likely due to HTN, DM, vascular disease, and CHF with necessity of diuretic therapy * She may be reaching a new baseline (3) Acute exacerbation of CHF (congestive heart failure): Qualifiers: Heart failure type: systolic Qualified Code(s): I50.23 - Acute on chronic systolic (congestive) heart failure Code(s): I50.9 - Heart failure, unspecified Status: Acute Assessment and Plan: * Cardiology following * Echo shows severe pulmonary hypertension and [id number] tricuspid regurgitation. LV is good except for some grade 1 diastolic dysfunction. * Chest x-ray and CT do show excess lung water. * on Bumex 2 b.i.d. IV and also metolazone 5mg per day. (4) Anemia: Code(s): D64.9 - Anemia, unspecified Status: Chronic Assessment and Plan: * some what of a chronic issue * possibly worsened by acute illness and renal dysfunction * s/p PRBC transfusion * Iron level was low, so currently on Venofer * On Epogen (5) Hypertension: Code(s): I10 - Essential (primary) hypertension Status: Chronic Assessment and Plan: * not an issue at this time * BP on the soft/relatively low at this time * On no antihypertensives (6) Diabetes mellitus: Qualifiers: Diabetes mellitus type: type 2 Diabetes mellitus termite helper insulin use: without fpc use Diabetes mellitus complication status: with hyperglycemia Qualified Code(s): E11.65 - Type 2 diabetes mellitus with hyperglycemia Code(s): E11.9 - Type 2 diabetes mellitus without complications Status: Chronic Assessment and Plan: * on Accu-Cheks and sliding-scale insulin Will continue to follow. Subjective Date/time seen: 11/29/21 07:55 Interval history: The patient feels better. Less short of breath. Still some swelling. She does drink a lot of fluid. She had 2L in yesterday. Exam Narrative: General: WD/WN AA female in NAD Heart: normal S1 and S2; no rub or gallop Lungs: decreased with bibasilar crackles Abdomen: soft, nontender, nondistended, positive bowel sounds Extremities: no cyanosis or clubbing; 2 - 3+ bilateral edema Skin: no acute rash. Objective Data Vital Signs Vital Signs: Vital Signs - 24 hr
--- NOTE | 2021-11-29 07:55 | PM.PNNEP ---
Progress Note: A&P Assessment and Plan (1) SAMARA (acute kidney injury): Code(s): N17.9 - Acute kidney failure, unspecified Status: Acute Assessment and Plan: as noted on admission - improving suspect multifactorial: CHF exacerbation relative hypotension cardiorenal syndrome (and associated chronic prerenal azotemia) severe pulmonary HTN anemia Urine electrolytes are pre renal. She probably has renal venous hypertension causing the elevated creatinine. Her creatinine seems to be improving with diuretics. Her creatinine seems to have stabilized in the mid 1s. She has had better creatinine is in the past but order to keep the fluid off we may have to be satisfied with a mildly elevated creatinine. Since her sodium level is dropping a little I think we should a fistulae fluid restrict her [id number] per day. Hitherto, had just asked the patient to drink less fluid but with the drop in sodium and the high volume intake we will make it a fistula. (2) CKD (chronic kidney disease): Code(s): N18.9 - Chronic kidney disease, unspecified Status: Acute Assessment and Plan: creatinine has fluctuated ~ 0.9 - 1.3mg/dl in the last year likely due to HTN, DM, vascular disease, and CHF with necessity of diuretic therapy She may be reaching a new baseline (3) Acute exacerbation of CHF (congestive heart failure): Qualifiers: Heart failure type: systolic Qualified Code(s): I50.23 - Acute on chronic systolic (congestive) heart failure Code(s): I50.9 - Heart failure, unspecified Status: Acute Assessment and Plan: Cardiology following Echo shows severe pulmonary hypertension and [id number] tricuspid regurgitation. LV is good except for some grade 1 diastolic dysfunction. Chest x-ray and CT do show excess lung water. on Bumex 2 b.i.d. IV and also metolazone 5mg per day. (4) Anemia: Code(s): D64.9 - Anemia, unspecified Status: Chronic Assessment and Plan: some what of a chronic issue possibly worsened by acute illness and renal dysfunction s/p PRBC transfusion Iron level was low, so currently on Venofer On Epogen (5) Hypertension: Code(s): I10 - Essential (primary) hypertension Status: Chronic Assessment and Plan: not an issue at this time BP on the soft/relatively low at this time On no antihypertensives (6) Diabetes mellitus: Qualifiers: Diabetes mellitus type: type 2 Diabetes mellitus fci insulin use: without medical terminologist use Diabetes mellitus complication status: with hyperglycemia Qualified Code(s): E11.65 - Type 2 diabetes mellitus with hyperglycemia Code(s): E11.9 - Type 2 diabetes mellitus without complications Status: Chronic Assessment and Plan: on Accu-Cheks and sliding-scale insulin Will continue to follow. Subjective Date/time seen: 11/29/21 07:55 Interval history: The patient feels better. Less short of breath. Still some swelling. She does drink a lot of fluid. She had 2L in yesterday. Exam Narrative: General: WD/WN AA female in NAD Heart: normal S1 and S2; no rub or gallop Lungs: decreased with bibasilar crackles Abdomen: soft, nontender, nondistended, positive bowel sounds Extremities: no cyanosis or clubbing; 2 - 3+ bilateral edema Skin: no acute rash. Objective Data Vital Signs Vital Signs: Vital Signs - 24 hr 11/28/21 08:00 11/28/21 09:00 11/28/21 12:00 Temperature Pulse Rate 78 80 Respiratory Rate Blood Pressure Pulse Oximetry 91 91 11/28/21 14:00 11/28/21 16:00 11/28/21 20:00 Temperature 36.8 C 36.2 C L Pulse Rate 80 76 68 Respiratory Rate 24 H 18 Blood Pressure 88/54 L 113/72 Pulse Oximetry 91 95 11/28/21 22:01 11/29/21 00:00 11/29/21 04:00 Temperature 36.3 C L 36.6 C Pulse Rate 68 72 Respiratory Rate 18 20 Blood Pressure 108/68 118/75 Pulse Oximetry 91 95 96 Intake/
[2021-11-29 07:57] LABS: Glucose Point of Care 112 mg/dl (65-105)
[2021-11-29 08:01] LABS: Alanine Aminotransferase 10 U/L (4-35); Albumin Level 3.3 g/dL (3.5-5.1); Alkaline Phosphatase 133 U/L (38-126); Anion Gap 6 mmol/L (8-16); Aspartate Amino Transferase 40 U/L (14-36); Bilirubin,Total 0.9 mg/dL (0.2-1.3); Blood Urea Nitrogen 39 mg/dL (7-17); Carbon Dioxide 33 mmol/L (22-30); Chloride 97 mmol/L (98-107); Estimated CRCL calculation 59 ml/min; Estimated Glomerular Filt Rate 46; Glucose 104 mg/dL (65-110); Magnesium 1.9 mg/dL (1.6-2.3); Phosphorus 3.7 mg/dL (2.5-4.5); Potassium 3.4 mmol/L (3.4-5.0); Sodium 136 mmol/L (137-145)
--- NOTE | 2021-11-29 08:30 | P.PNIM_ITS ---
Progress Note: A&P Assessment and Plan (1) Acute exacerbation of congestive heart failure: Code(s): I50.9 - Heart failure, unspecified Status: Acute Assessment and Plan: * Acute diastolic exacerbation of heart failure * changed to Bumex 2mg IV BID * Dr. Hopkins following and diuresing patient, treating cardiomyopathy/HTN/CHF * Strict I/O * Daily weights * Check ECHO - showed MV severe calcification, EF 65-70%, moderate TV regurg, severe pulm HTN with paP 69, right atrial pressure elevated. * CT scan showed 10 x 6 mm left lower lobe nodule with macroscopic fat attenuation unchanged since 09/08/2019 consistent with a hamartoma. Smooth septal line thickening at the bilateral lung bases consistent with mild pulmonary edema. Enlargement of the central pulmonary arteries consistent with pulmonary arterial hypertension. Cardiomegaly with prominent right atrial enlargement. Atherosclerotic coronary artery calcification. Tiny pericardial effusion. No pleural effusion. * BNP 6250 11/28/21 * Trend BP, BP is 116/70 * I think that she would benefit from a fluid restriction, started on a 1500ml daily restriction * Looking at her I&O she is positive a little over 2L This lady would really benefit from following up at a CHF clinic (2) Renal failure: Code(s): N19 - Unspecified kidney failure Status: Acute Assessment and Plan: * Creatinine is better today at 1.40 * Monitor her renal function closely while diuresing * Avoid nephrotoxins * Appreciate nephrology consult * Keep MAPS >65 , BPs stable today 116/70 (3) Chronic anemia: Code(s): D64.9 - Anemia, unspecified Status: Acute Assessment and Plan: * Hemoglobin is stable but remains in the mid sevens 7.5 today * Continue iron supplementation * Also continue PPI as she was noted to have gastritis on EGD in September 2021 * Iron supplementation and continues anemia, combined with her significantly increased O2 requirement and soft BPs, * 1 unit RBC 11/21/21 * transfusing as needed. (4) Hypertension: Qualifiers: Hypertension type: essential hypertension Qualified Code(s): I10 - Essential (primary) hypertension Code(s): I10 - Essential (primary) hypertension Status: Acute Assessment and Plan: * Blood pressures stable, soft sometimes, SBPs 90-100s. * Monitor closely while diuresing * holding norvasc and losartan at this time (5) COPD (chronic obstructive pulmonary disease): Qualifiers: COPD type: unspecified COPD Qualified Code(s): J44.9 - Chronic obstructive pulmonary disease, unspecified Code(s): J44.9 - Chronic obstructive pulmonary disease, unspecified Status: Chronic Assessment and Plan: * possible acute exacerbation today with CO2 retention and increased O2 requirement * ordered mucinex and inhaler scheduled. * appreciate pulmonary consult * unable to continue her non-formulary maintenance inhalers * Continue airvo * Despite diuresis, she is having increasing O2 requirement * ABG was near normal - some CO2 retention. * RT is working to wean down her O2 requirement again * Wonder if there is a PE * Continue Anoro ellipta 1 puff inh daily and albuterol (6) Diabetes mellitus: Qualifiers: Diabetes mellitus type: type 2 Diabetes mellitus residential insulin use: without continuous churn buttermaker use Diabetes mellitus complication status: with hyperglycemia Qualified Code(s): E11.65 - Type 2 diabetes mellitus with hypergly
--- NOTE | 2021-11-29 08:30 | PM.IMPN ---
Progress Note: A&P Assessment and Plan (1) Acute exacerbation of congestive heart failure: Code(s): I50.9 - Heart failure, unspecified Status: Acute Assessment and Plan: Acute diastolic exacerbation of heart failure changed to Bumex 2mg IV BID Dr. Hopkins following and diuresing patient, treating cardiomyopathy/HTN/CHF Strict I/O Daily weights Check ECHO - showed MV severe calcification, EF 65-70%, moderate TV regurg, severe pulm HTN with paP 69, right atrial pressure elevated. CT scan showed 10 x 6 mm left lower lobe nodule with macroscopic fat attenuation unchanged since 09/08/2019 consistent with a hamartoma. Smooth septal line thickening at the bilateral lung bases consistent with mild pulmonary edema. Enlargement of the central pulmonary arteries consistent with pulmonary arterial hypertension. Cardiomegaly with prominent right atrial enlargement. Atherosclerotic coronary artery calcification. Tiny pericardial effusion. No pleural effusion. BNP 6250 11/28/21 Trend BP, BP is 116/70 I think that she would benefit from a fluid restriction, started on a 1500ml daily restriction Looking at her I&O she is positive a little over 2L This lady would really benefit from following up at a CHF clinic (2) Renal failure: Code(s): N19 - Unspecified kidney failure Status: Acute Assessment and Plan: Creatinine is better today at 1.40 Monitor her renal function closely while diuresing Avoid nephrotoxins Appreciate nephrology consult Keep MAPS >65 , BPs stable today 116/70 (3) Chronic anemia: Code(s): D64.9 - Anemia, unspecified Status: Acute Assessment and Plan: Hemoglobin is stable but remains in the mid sevens 7.5 today Continue iron supplementation Also continue PPI as she was noted to have gastritis on EGD in September 2021 Iron supplementation and continues anemia, combined with her significantly increased O2 requirement and soft BPs, 1 unit RBC 11/21/21 transfusing as needed. (4) Hypertension: Qualifiers: Hypertension type: essential hypertension Qualified Code(s): I10 - Essential (primary) hypertension Code(s): I10 - Essential (primary) hypertension Status: Acute Assessment and Plan: Blood pressures stable, soft sometimes, SBPs 90-100s. Monitor closely while diuresing holding norvasc and losartan at this time (5) COPD (chronic obstructive pulmonary disease): Qualifiers: COPD type: unspecified COPD Qualified Code(s): J44.9 - Chronic obstructive pulmonary disease, unspecified Code(s): J44.9 - Chronic obstructive pulmonary disease, unspecified Status: Chronic Assessment and Plan: possible acute exacerbation today with CO2 retention and increased O2 requirement ordered mucinex and inhaler scheduled. appreciate pulmonary consult unable to continue her non-formulary maintenance inhalers Continue airvo Despite diuresis, she is having increasing O2 requirement ABG was near normal - some CO2 retention. RT is working to wean down her O2 requirement again Wonder if there is a PE Continue Anoro ellipta 1 puff inh daily and albuterol (6) Diabetes mellitus: Qualifiers: Diabetes mellitus type: type 2 Diabetes mellitus intermediate accountant insulin use: without intermediate accountant use Diabetes mellitus complication status: with hyperglycemia Qualified Code(s): E11.65 - Type 2 diabetes mellitus with hyperglycemia Code(s): E11.9 - Type 2 diabetes mellitus without complications Status: Chronic Assessment and Plan: Continue sliding scale insulin, Accu-Cheks, and hypoglycemic protocol Monitor follow accuchecks glycemic control controlled at this time, glucose 104 today (7) Generalized weakness: Code(s): R53.1 - Weakness Status: Acute Assessment and Plan: Related to deconditioning, weight gain, and chronic co
[2021-11-29] MEDS: UMECLIDINIUM/VILANTEROL 62.5-25 MCG ELLIPTA 1 PUFF INHALATION (09:54)
[2021-11-29 10:13] LABS: Anisocytosis 1+ (NORMAL); Hypochromasia 1+ (NORMAL); Platelet Estimate Adequate (Adequate)
[2021-11-29] MEDS: POLYSACCHARIDE IRON COMPLEX 150 MG CAPSULE PO ×2 (11:00→17:17)
[2021-11-29] MEDS: EZETIMIBE 10 MG TABLET PO (11:00)
[2021-11-29] MEDS: SENNA/DOCUSATE SODIUM TABLET 1 TAB PO (11:00)
[2021-11-29] MEDS: PANTOPRAZOLE 40 MG TABLET PO ×2 (11:01→17:17)
[2021-11-29] MEDS: IRON SUCROSE COMPLEX 200 MG in SODIUM CHLORIDE 0.9% IV 50 ML 120 MG IVPB (11:01)
[2021-11-29] MEDS: GABAPENTIN 100 MG CAPSULE PO ×3 (11:01→17:17)
[2021-11-29] MEDS: metOLazone 5 MG TABLET PO (11:01)
[2021-11-29] MEDS: ATORVASTATIN 40 MG TABLET PO (11:01)
[2021-11-29] MEDS: BUMETANIDE INJ 2.5 MG/10 ML VIAL 2 MG IV PUSH ×2 (11:03→17:18)
[2021-11-29] MEDS: EPOETIN ALFA 10,000 UNITS/ML VIAL 10000 UNITS SUB-Q (11:04)
[2021-11-29 12:16] LABS: Glucose Point of Care 169 mg/dl (65-105)
[2021-11-29 16:42] LABS: Glucose Point of Care 116 mg/dl (65-105)
[2021-11-29 23:32] LABS: Glucose Point of Care 149 mg/dl (65-105)
[2021-11-30] VITALS (11 sets, daily range): BP systolic 91–96; BP diastolic 43–57; PULSE 75–99; RESP 16–22; TEMP 36.4–38.1; O2SAT 83–96
[2021-11-30 06:58] LABS: Basophils Absolute Auto 0.1 K/mm3 (0.0-0.1); Basophils Percent Auto 0.6 % (0.2-1.2); Eosinophils Absolute Auto 0.1 K/mm3 (0-0.3); Eosinophils Percent Auto 1.1 % (0-4.4); Hematocrit 25.1 % (37.0-47.0); Hemoglobin 7.4 g/dL (12.0-15.0); Immature Granulocyte Absolute 0.03 K/mm3 (0.00-0.031); Immature Granulocyte Percent A 0.4 % (0-0.5); Immature Platelet Fraction Pct 5.7 % (0.9-11.2); Lymphocytes Absolute Auto 1.07 K/mm3 (0.9-3.2); Lymphocytes Percent Auto 12.6 % (18.3-44.2); Mean Corpuscular HGB Conc 29.5 g/dl (32-36); Mean Corpuscular Hemoglobin 21.8 pg (26-34); Mean Corpuscular Volume 73.8 fl (80-100); Mean Platelet Volume 10.6 fl (7.4-10.4); Monocytes Absolute Auto 0.5 K/mm3 (0.1-0.6); Monocytes Percent Auto 5.5 % (2.6-8.5); Neutrophils Absolute Auto 6.8 K/mm3 (1.3-6.7); Neutrophils Percent Auto 79.8 % (45.5-73.1); Nucleated Red Blood Cells Perc 0.4 % (0.0-0.2); Platelet Count Result 215 k/mm3 (150-375); Red Cell Distribution Width 22.5 % (11.5-14.5); White Blood Count 8.5 K/mm3 (4.5-10.0)
[2021-11-30 07:01] LABS: Alanine Aminotransferase 10 U/L (4-35); Albumin Level 3.2 g/dL (3.5-5.1); Alkaline Phosphatase 133 U/L (38-126); Anion Gap 4 mmol/L (8-16); Aspartate Amino Transferase 37 U/L (14-36); Bilirubin,Total 0.7 mg/dL (0.2-1.3); Blood Urea Nitrogen 36 mg/dL (7-17); Carbon Dioxide 35 mmol/L (22-30); Chloride 95 mmol/L (98-107); Estimated CRCL calculation 52 ml/min; Estimated Glomerular Filt Rate 39; Glucose 110 mg/dL (65-110); Phosphorus 3.8 mg/dL (2.5-4.5); Potassium 3.1 mmol/L (3.4-5.0); Sodium 134 mmol/L (137-145)
--- NOTE | 2021-11-30 07:46 | PM.PNCARD ---
Progress Note: A&P Assessment and Plan (1) Acute exacerbation of congestive heart failure: Code(s): I50.9 - Heart failure, unspecified Status: Acute Assessment and Plan: Acute on chronic mild diastolic heart failure. No systolic dysfunction or systolic heart failure and no valvular heart disease. She is third spacing in lungs, abdomen, and legs and low intravascular volume primarily due to pulmonary hypertension and possible cirrhosis of liver. Volume overload due to a combination of acute on chronic mild diastolic heart failure, worsening CKD due to cardiorenal syndrome, severe pulmonary hypertension, high output failure from anemia and possible cirrhosis of liver. Difficult to keep euvolemic due to cardiorenal syndrome. On Bumetanide 2 mg IV BID. She is improving clinically with less sob and edema of legs. If this does not work then consider lasix drip or renal dose dopamine to enhance diuresis. Wean oxygen off as tolerated. She was given 2 days of Metolazone 5 mg daily. Now stopped. Agree with fluid restriction up to 1.5 liters a day, apparently she is drinking a lot of water. (2) CKD (chronic kidney disease): Code(s): N18.9 - Chronic kidney disease, unspecified Status: Acute Assessment and Plan: Monitor renal function and electrolytes closely and replace as needed. Nephrology following. (3) Chronic anemia: Code(s): D64.9 - Anemia, unspecified Status: Acute Assessment and Plan: Microcytic anemia suggests blood loss or iron deficiency anemia. Workup and manage anemia. Received 1 unit PRBC transfusion. (4) Chronic obstructive pulmonary disease: Code(s): J44.9 - Chronic obstructive pulmonary disease, unspecified Status: Acute (5) Pulmonary hypertension: Code(s): I27.20 - Pulmonary hypertension, unspecified Status: Acute Assessment and Plan: Probably due to a combination of GUANACO and COPD, and diastolic dysfunction. (6) Obstructive sleep apnea: Code(s): G47.33 - Obstructive sleep apnea (adult) (pediatric) Status: Acute Subjective Date/time seen: 11/30/21 07:46 Denies chest pain or sob. Exam Const: General: cooperative, healthy appearing and comfortable Nutritional Appearance: obese Resp: Auscultation: no crackles, no rales, no rhonchi, wheezes and diminished lung sounds Cardio: Jugular venous distension: no JVD Rate: regular rate Rhythm: regular rhythm Heart sounds: no murmurs GI: GI Palp: No abdominal tenderness and Yes Soft to palpation Neuro: General: oriented to person, oriented to place and oriented to time Extrem: Right lower extremity: edema Left lower extremity: edema Other: Mild edema of both legs Objective Data Vital Signs Vital Signs: Vital Signs - 24 hr 11/29/21 08:00 11/29/21 10:28 11/29/21 12:00 Temperature 97.6 F 98.2 F Pulse Rate 81 70 82 Respiratory Rate 20 18 Blood Pressure 116/70 105/57 L Pulse Oximetry 95 95 94 11/29/21 16:00 11/29/21 20:00 11/30/21 00:00 Temperature 98.6 F 100.4 F H 100.5 F H Pulse Rate 84 90 86 Respiratory Rate 18 16 16 Blood Pressure 98/55 L 98/55 L 96/57 L Pulse Oximetry 90 90 88 L 11/30/21 01:00 11/30/21 04:00 Temperature 98.4 F Pulse Rate 99 82 Respiratory Rate 22 H 16 Blood Pressure 93/48 L Pulse Oximetry 94 93 Intake/Output Intake/Output: Intake & Output 11/27/21 11/28/21 11/29/21 11/30/21 23:59 23:59 23:59 23:59 Intake Total 1220 2120 1600 280 Output Total 2225 1950 3600 1800 Balance -1005 643 -9590 -0987 Meds/Results Medications: Active Medications Generic Name Dose Route Start Last Admin Trade Name Freq PRN Reason Stop Dose Admin Albuterol 1 puff 11/21/21 14:00 11/29/21 20:15 Albuterol Sulfate (*Sp) Aerosol 1 Puff INHALATION 1 puff Q6HRT EMIR Administration Atorvastatin Calcium 40 mg 11/20/21 09:00 11/29/21 11:01 Atorvastatin 40 Mg Tablet PO 40 mg DAILY EMIR Administration Bumetanide 2 mg 0
[2021-11-30] MEDS: UMECLIDINIUM/VILANTEROL 62.5-25 MCG ELLIPTA 1 PUFF INHALATION (07:57)
[2021-11-30] MEDS: ALBUTEROL SULFATE (*SP) AEROSOL 1 PUFF INHALATION ×3 (07:57→20:33)
--- NOTE | 2021-11-30 08:15 | P.PNIM_ITS ---
Progress Note: A&P Assessment and Plan (1) Acute exacerbation of congestive heart failure: Code(s): I50.9 - Heart failure, unspecified Status: Acute Assessment and Plan: * Acute diastolic exacerbation of heart failure * changed to Bumex 2mg IV BID * Dr. Hopkins following and diuresing patient, treating cardiomyopathy/HTN/CHF * Strict I/O * Daily weights * Check ECHO - showed MV severe calcification, EF 65-70%, moderate TV regurg, severe pulm HTN with paP 69, right atrial pressure elevated. * CT scan showed 10 x 6 mm left lower lobe nodule with macroscopic fat attenuation unchanged since 09/08/2019 consistent with a hamartoma. Smooth septal line thickening at the bilateral lung bases consistent with mild pulmonary edema. Enlargement of the central pulmonary arteries consistent with pulmonary arterial hypertension. Cardiomegaly with prominent right atrial enlargement. Atherosclerotic coronary artery calcification. Tiny pericardial effusion. No pleural effusion. * BNP 6250 11/28/21 * Trend BP, BP is 93/43 * I think that she would benefit from a fluid restriction, started on a 1500ml daily restriction * Looking at her I&O she is positive a little over 2L This lady would really benefit from following up at a CHF clinic (2) Renal failure: Code(s): N19 - Unspecified kidney failure Status: Acute Assessment and Plan: * Creatinine is better today at 1.40 * Monitor her renal function closely while diuresing * Avoid nephrotoxins * Appreciate nephrology consult * Keep MAPS >65 , BPs stable today 93/43 (3) Chronic anemia: Code(s): D64.9 - Anemia, unspecified Status: Acute Assessment and Plan: * Hemoglobin is stable but remains in the mid sevens 7.40 today * Continue iron supplementation, switched to IV for 5 bags * Also continue PPI as she was noted to have gastritis on EGD in September 2021 * Iron supplementation and continues anemia, combined with her significantly increased O2 requirement and soft BPs, * 1 unit RBC 11/21/21 * transfusing as needed. (4) Hypertension: Qualifiers: Hypertension type: essential hypertension Qualified Code(s): I10 - Essential (primary) hypertension Code(s): I10 - Essential (primary) hypertension Status: Acute Assessment and Plan: * Blood pressures stable, soft sometimes, SBPs 90-100s. * Monitor closely while diuresing * holding norvasc and losartan at this time (5) COPD (chronic obstructive pulmonary disease): Qualifiers: COPD type: unspecified COPD Qualified Code(s): J44.9 - Chronic obstructive pulmonary disease, unspecified Code(s): J44.9 - Chronic obstructive pulmonary disease, unspecified Status: Chronic Assessment and Plan: * possible acute exacerbation today with CO2 retention and increased O2 requirement * ordered mucinex and inhaler scheduled. * appreciate pulmonary consult * unable to continue her non-formulary maintenance inhalers * Continue airvo * Despite diuresis, she is having increasing O2 requirement * ABG was near normal - some CO2 retention. * RT is working to wean down her O2 requirement again * Wonder if there is a PE * Continue Anoro ellipta 1 puff inh daily and albuterol (6) Diabetes mellitus: Qualifiers: Diabetes mellitus type: type 2 Diabetes mellitus detention insulin use: without rat exterminator use Diabetes mellitus complication status: with hyperglycemia Qualified Code(s): E11.65 - Type 2 diabe
--- NOTE | 2021-11-30 08:15 | PM.IMPN ---
Progress Note: A&P Assessment and Plan (1) Acute exacerbation of congestive heart failure: Code(s): I50.9 - Heart failure, unspecified Status: Acute Assessment and Plan: Acute diastolic exacerbation of heart failure changed to Bumex 2mg IV BID Dr. Hopkins following and diuresing patient, treating cardiomyopathy/HTN/CHF Strict I/O Daily weights Check ECHO - showed MV severe calcification, EF 65-70%, moderate TV regurg, severe pulm HTN with paP 69, right atrial pressure elevated. CT scan showed 10 x 6 mm left lower lobe nodule with macroscopic fat attenuation unchanged since 09/08/2019 consistent with a hamartoma. Smooth septal line thickening at the bilateral lung bases consistent with mild pulmonary edema. Enlargement of the central pulmonary arteries consistent with pulmonary arterial hypertension. Cardiomegaly with prominent right atrial enlargement. Atherosclerotic coronary artery calcification. Tiny pericardial effusion. No pleural effusion. BNP 6250 11/28/21 Trend BP, BP is 93/43 I think that she would benefit from a fluid restriction, started on a 1500ml daily restriction Looking at her I&O she is positive a little over 2L This lady would really benefit from following up at a CHF clinic (2) Renal failure: Code(s): N19 - Unspecified kidney failure Status: Acute Assessment and Plan: Creatinine is better today at 1.40 Monitor her renal function closely while diuresing Avoid nephrotoxins Appreciate nephrology consult Keep MAPS >65 , BPs stable today 93/43 (3) Chronic anemia: Code(s): D64.9 - Anemia, unspecified Status: Acute Assessment and Plan: Hemoglobin is stable but remains in the mid sevens 7.40 today Continue iron supplementation, switched to IV for 5 bags Also continue PPI as she was noted to have gastritis on EGD in September 2021 Iron supplementation and continues anemia, combined with her significantly increased O2 requirement and soft BPs, 1 unit RBC 11/21/21 transfusing as needed. (4) Hypertension: Qualifiers: Hypertension type: essential hypertension Qualified Code(s): I10 - Essential (primary) hypertension Code(s): I10 - Essential (primary) hypertension Status: Acute Assessment and Plan: Blood pressures stable, soft sometimes, SBPs 90-100s. Monitor closely while diuresing holding norvasc and losartan at this time (5) COPD (chronic obstructive pulmonary disease): Qualifiers: COPD type: unspecified COPD Qualified Code(s): J44.9 - Chronic obstructive pulmonary disease, unspecified Code(s): J44.9 - Chronic obstructive pulmonary disease, unspecified Status: Chronic Assessment and Plan: possible acute exacerbation today with CO2 retention and increased O2 requirement ordered mucinex and inhaler scheduled. appreciate pulmonary consult unable to continue her non-formulary maintenance inhalers Continue airvo Despite diuresis, she is having increasing O2 requirement ABG was near normal - some CO2 retention. 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
[2021-11-30 08:16] LABS: Glucose Point of Care 108 mg/dl (65-105)
[2021-11-30 08:22] LABS: Anisocytosis 1+ (NORMAL); Hypochromasia 1+ (NORMAL); Platelet Estimate Adequate (Adequate); Poikilocytosis 1+ (NORMAL)
--- NOTE | 2021-11-30 09:27 | P.PNNP_ITS ---
Progress Note: A&P Assessment and Plan (1) SAMARA (acute kidney injury): Code(s): N17.9 - Acute kidney failure, unspecified Status: Acute Assessment and Plan: * as noted on admission - improving * suspect multifactorial: * CHF exacerbation * relative hypotension * cardiorenal syndrome (and associated chronic prerenal azotemia) * severe pulmonary HTN * anemia * Urine electrolytes are pre renal. * Her creatinine seems to be running in the mid 1s, ranging from 1.4-1.7. * She has had better creatinine is in the past but order to keep the fluid off we may have to be satisfied with a mildly elevated creatinine. * Intake /Output was negative by 2L yesterday. * Will continue diuretics and watch the creatinine. (2) CKD (chronic kidney disease): Code(s): N18.9 - Chronic kidney disease, unspecified Status: Acute Assessment and Plan: * creatinine has fluctuated ~ 0.9 - 1.3mg/dl in the last year * likely due to HTN, DM, vascular disease, and CHF with necessity of diuretic therapy * She may be reaching a new baseline (3) Acute exacerbation of CHF (congestive heart failure): Qualifiers: Heart failure type: systolic Qualified Code(s): I50.23 - Acute on chronic systolic (congestive) heart failure Code(s): I50.9 - Heart failure, unspecified Status: Acute Assessment and Plan: * Cardiology following * Echo shows severe pulmonary hypertension and [id number] tricuspid regurgitation. LV is good except for some grade 1 diastolic dysfunction. * Chest x-ray and CT do show excess lung water. * on Bumex 2 b.i.d. IV and also metolazone 5mg per day. Will resume the metolazone. (4) Anemia: Code(s): D64.9 - Anemia, unspecified Status: Chronic Assessment and Plan: * some what of a chronic issue * possibly worsened by acute illness and renal dysfunction * s/p PRBC transfusion * Iron level was low, so currently on Venofer * On Epogen (5) Hypertension: Code(s): I10 - Essential (primary) hypertension Status: Chronic Assessment and Plan: * not an issue at this time * BP on the soft/relatively low at this time * On no antihypertensives (6) Diabetes mellitus: Qualifiers: Diabetes mellitus type: type 2 Diabetes mellitus custodial insulin use: without termite technician use Diabetes mellitus complication status: with hyperglycemia Qualified Code(s): E11.65 - Type 2 diabetes mellitus with hyperglycemia Code(s): E11.9 - Type 2 diabetes mellitus without complications Status: Chronic Assessment and Plan: * on Accu-Cheks and sliding-scale insulin Will continue to follow. Subjective Date/time seen: 11/30/21 09:27 Interval history: The patient feels better. Less short of breath. Still some swelling. She is still on oxygen. Exam Narrative: General: WD/WN AA female in NAD Heart: normal S1 and S2; no rub or gallop Lungs: decreased with a few bibasilar crackles Abdomen: soft, nontender, nondistended, positive bowel sounds Extremities: no cyanosis or clubbing; 2 - 3+ bilateral edema Skin: no acute rash. Objective Data Vital Signs Vital Signs: Vital Signs - 24 hr 11/29/21 10:28 11/29/21 12:00 11/29/21 16:00 Temperature 36.4 C 36.8 C 37.0 C Pulse Rate 70 82 84 Respiratory Rate 20 18 18 Blood Pressure 116/70 105/57 L 98/55 L Pulse Oximetry 95 94 90
--- NOTE | 2021-11-30 09:27 | PM.PNNEP ---
Progress Note: A&P Assessment and Plan (1) SAMARA (acute kidney injury): Code(s): N17.9 - Acute kidney failure, unspecified Status: Acute Assessment and Plan: as noted on admission - improving suspect multifactorial: CHF exacerbation relative hypotension cardiorenal syndrome (and associated chronic prerenal azotemia) severe pulmonary HTN anemia Urine electrolytes are pre renal. Her creatinine seems to be running in the mid 1s, ranging from 1.4-1.7. She has had better creatinine is in the past but order to keep the fluid off we may have to be satisfied with a mildly elevated creatinine. Intake /Output was negative by 2L yesterday. Will continue diuretics and watch the creatinine. (2) CKD (chronic kidney disease): Code(s): N18.9 - Chronic kidney disease, unspecified Status: Acute Assessment and Plan: creatinine has fluctuated ~ 0.9 - 1.3mg/dl in the last year likely due to HTN, DM, vascular disease, and CHF with necessity of diuretic therapy She may be reaching a new baseline (3) Acute exacerbation of CHF (congestive heart failure): Qualifiers: Heart failure type: systolic Qualified Code(s): I50.23 - Acute on chronic systolic (congestive) heart failure Code(s): I50.9 - Heart failure, unspecified Status: Acute Assessment and Plan: Cardiology following Echo shows severe pulmonary hypertension and [id number] tricuspid regurgitation. LV is good except for some grade 1 diastolic dysfunction. Chest x-ray and CT do show excess lung water. on Bumex 2 b.i.d. IV and also metolazone 5mg per day. Will resume the metolazone. (4) Anemia: Code(s): D64.9 - Anemia, unspecified Status: Chronic Assessment and Plan: some what of a chronic issue possibly worsened by acute illness and renal dysfunction s/p PRBC transfusion Iron level was low, so currently on Venofer On Epogen (5) Hypertension: Code(s): I10 - Essential (primary) hypertension Status: Chronic Assessment and Plan: not an issue at this time BP on the soft/relatively low at this time On no antihypertensives (6) Diabetes mellitus: Qualifiers: Diabetes mellitus type: type 2 Diabetes mellitus detention insulin use: without detention use Diabetes mellitus complication status: with hyperglycemia Qualified Code(s): E11.65 - Type 2 diabetes mellitus with hyperglycemia Code(s): E11.9 - Type 2 diabetes mellitus without complications Status: Chronic Assessment and Plan: on Accu-Cheks and sliding-scale insulin Will continue to follow. Subjective Date/time seen: 11/30/21 09:27 Interval history: The patient feels better. Less short of breath. Still some swelling. She is still on oxygen. Exam Narrative: General: WD/WN AA female in NAD Heart: normal S1 and S2; no rub or gallop Lungs: decreased with a few bibasilar crackles Abdomen: soft, nontender, nondistended, positive bowel sounds Extremities: no cyanosis or clubbing; 2 - 3+ bilateral edema Skin: no acute rash. Objective Data Vital Signs Vital Signs: Vital Signs - 24 hr 11/29/21 10:28 11/29/21 12:00 11/29/21 16:00 Temperature 36.4 C 36.8 C 37.0 C Pulse Rate 70 82 84 Respiratory Rate 20 18 18 Blood Pressure 116/70 105/57 L 98/55 L Pulse Oximetry 95 94 90 11/29/21 20:00 11/30/21 00:00 11/30/21 01:00 Temperature 38.0 C H 38.1 C H Pulse Rate 90 86 99 Respiratory Rate 16 16 22 H Blood Pressure 98/55 L 96/57 L Pulse Oximetry 90 88 L 94 11/30/21 04:00 11/30/21 07:59 11/30/21 08:00 Temperature 36.9 C 36.4 C Pulse Rate 82 81 Respiratory Rate 16 18 Blood Pressure 93/48 L 93/43 L Pulse Oximetry 93 92 96 Intake/Output Intake/Output: Intake & Output 11/27/21 11/28/21 11/29/21 11/30/21 23:59 23:59 23:59 23:59 Intake Total 1220 2120 1600 400 Output Total 2225 1950 3600 1800 Balance -1005 170 -2000 -14
[2021-11-30] MEDS: POTASSIUM CHLORIDE 20 MEQ TABLET 40 MEQ PO (10:02)
[2021-11-30] MEDS: BUMETANIDE INJ 2.5 MG/10 ML VIAL 2 MG IV PUSH ×2 (10:03→17:21)
[2021-11-30] MEDS: SENNA/DOCUSATE SODIUM TABLET 1 TAB PO (10:03)
[2021-11-30] MEDS: EZETIMIBE 10 MG TABLET PO (10:03)
[2021-11-30] MEDS: ATORVASTATIN 40 MG TABLET PO (10:03)
[2021-11-30] MEDS: GABAPENTIN 100 MG CAPSULE PO ×3 (10:03→17:20)
[2021-11-30] MEDS: IRON SUCROSE COMPLEX 200 MG in SODIUM CHLORIDE 0.9% IV 50 ML 120 MG IVPB (10:04)
[2021-11-30] MEDS: guaiFENesin 12 HR 600 MG TABCR 1200 MG PO ×2 (10:04→22:17)
[2021-11-30] MEDS: POLYSACCHARIDE IRON COMPLEX 150 MG CAPSULE PO ×2 (10:04→17:20)
[2021-11-30] MEDS: PANTOPRAZOLE 40 MG TABLET PO ×2 (10:04→17:20)
[2021-11-30] MEDS: metOLazone 5 MG TABLET PO (10:05)
[2021-11-30 12:07] LABS: Glucose Point of Care 139 mg/dl (65-105)
[2021-11-30 16:55] LABS: Glucose Point of Care 116 mg/dl (65-105)
[2021-12-01] VITALS (13 sets, daily range): BP systolic 89–101; BP diastolic 54–55; PULSE 70–88; RESP 16–20; TEMP 36.6–36.8; O2SAT 90–100
--- NOTE | 2021-12-01 06:42 | P.PNNP_ITS ---
Progress Note: A&P Assessment and Plan (1) SAMARA (acute kidney injury): Code(s): N17.9 - Acute kidney failure, unspecified Status: Acute Assessment and Plan: * as noted on admission - improving * suspect multifactorial: * CHF exacerbation * relative hypotension * cardiorenal syndrome (and associated chronic prerenal azotemia) * severe pulmonary HTN * anemia * Urine electrolytes are pre renal. * Her creatinine seems to be running in the mid 1s, ranging from 1.4-1.7. * Today's values pending * Her creatinine is probably not getting it much better. * Intake /Output negative by 2L once again yesterday. * We will probably never get all of her swelling off because of her heart issues. * Will continue diuretics and watch the creatinine. * Discharge once patient able to function at home (2) CKD (chronic kidney disease): Code(s): N18.9 - Chronic kidney disease, unspecified Status: Acute Assessment and Plan: * creatinine has fluctuated ~ 0.9 - 1.3mg/dl in the last year * likely due to HTN, DM, vascular disease, and CHF with necessity of diuretic therapy * She may be reaching a new baseline (3) Acute exacerbation of CHF (congestive heart failure): Qualifiers: Heart failure type: systolic Qualified Code(s): I50.23 - Acute on chronic systolic (congestive) heart failure Code(s): I50.9 - Heart failure, unspecified Status: Acute Assessment and Plan: * Cardiology following * Echo shows severe pulmonary hypertension and [id number] tricuspid regurgitation. LV is good except for some grade 1 diastolic dysfunction. * Chest x-ray and CT do show excess lung water. * On fluid restriction. * on Bumex 2 b.i.d. IV and also metolazone 5mg per day. (4) Anemia: Code(s): D64.9 - Anemia, unspecified Status: Chronic Assessment and Plan: * some what of a chronic issue * possibly worsened by acute illness and renal dysfunction * s/p PRBC transfusion * Iron level was low, so currently on Venofer * On Epogen (5) Hypertension: Code(s): I10 - Essential (primary) hypertension Status: Chronic Assessment and Plan: * not an issue at this time * BP on the soft/relatively low at this time * On no antihypertensives (6) Diabetes mellitus: Qualifiers: Diabetes mellitus type: type 2 Diabetes mellitus senior care insulin use: without senior care use Diabetes mellitus complication status: with hyperglycemia Qualified Code(s): E11.65 - Type 2 diabetes mellitus with hyperglycemia Code(s): E11.9 - Type 2 diabetes mellitus without complications Status: Chronic Assessment and Plan: * on Accu-Cheks and sliding-scale insulin Will continue to follow. Subjective Date/time seen: 12/01/21 06:42 Interval history: The patient feels better. Less short of breath. Still very swollen She gets up in a chair during the day. She walks to the bathroom at times. She is still on a lot of oxygen. Exam Narrative: General: WD/WN AA female in NAD Heart: normal S1 and S2; no rub Lungs: decreased breath sounds at the bases with a few bibasilar crackles Abdomen: soft, nontender, nondistended, positive bowel sounds Extremities: no cyanosis or clubbing; 2 - 3+ bilateral edema Skin: no acute rash. Objective Data Vital Signs Vital Signs: Vital Signs - 24 hr 11/30/21 07:59 11/30/21 08:00 11/30/21 12:00
--- NOTE | 2021-12-01 06:42 | PM.PNNEP ---
Progress Note: A&P Assessment and Plan (1) SAMARA (acute kidney injury): Code(s): N17.9 - Acute kidney failure, unspecified Status: Acute Assessment and Plan: as noted on admission - improving suspect multifactorial: CHF exacerbation relative hypotension cardiorenal syndrome (and associated chronic prerenal azotemia) severe pulmonary HTN anemia Urine electrolytes are pre renal. Her creatinine seems to be running in the mid 1s, ranging from 1.4-1.7. Today's values pending Her creatinine is probably not getting it much better. Intake /Output negative by 2L once again yesterday. We will probably never get all of her swelling off because of her heart issues. Will continue diuretics and watch the creatinine. Discharge once patient able to function at home (2) CKD (chronic kidney disease): Code(s): N18.9 - Chronic kidney disease, unspecified Status: Acute Assessment and Plan: creatinine has fluctuated ~ 0.9 - 1.3mg/dl in the last year likely due to HTN, DM, vascular disease, and CHF with necessity of diuretic therapy She may be reaching a new baseline (3) Acute exacerbation of CHF (congestive heart failure): Qualifiers: Heart failure type: systolic Qualified Code(s): I50.23 - Acute on chronic systolic (congestive) heart failure Code(s): I50.9 - Heart failure, unspecified Status: Acute Assessment and Plan: Cardiology following Echo shows severe pulmonary hypertension and [id number]-[id number] tricuspid regurgitation. LV is good except for some grade 1 diastolic dysfunction. Chest x-ray and CT do show excess lung water. On fluid restriction. on Bumex 2 b.i.d. IV and also metolazone 5mg per day. 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 Subjective Date/time seen: 12/01/21 06:42 Interval history: The patient feels better. Less short of breath. Still very swollen She gets up in a chair during the day. She walks to the bathroom at times. She is still on a lot of oxygen. Exam Narrative: General: WD/WN AA female in NAD Heart: normal S1 and S2; no rub Lungs: decreased breath sounds at the bases with a few bibasilar crackles Abdomen: soft, nontender, nondistended, positive bowel sounds Extremities: no cyanosis or clubbing; 2 - 3+ bilateral edema Skin: no acute rash. Objective Data Vital Signs Vital Signs: Vital Signs - 24 hr 11/30/21 07:59 11/30/21 08:00 11/30/21 12:00 Temperature 36.4 C 36.8 C Pulse Rate 75 84 Respiratory Rate 18 18 Blood Pressure 93/43 L 96/47 L Pulse Oximetry 92 96 90 11/30/21 16:00 11/30/21 20:00 11/30/21 20:45 Temperature 37.2 C 36.8 C Pulse Rate 84 83 Respiratory Rate 18 16 Blood Pressure 91/53 L 94/54 L Pulse Oximetry 85 L 90 83 L 11/30/21 21:15 11/30/21 22:00 12/01/21 04:40 Temperature 36.8 C Pulse Rate 83 Respiratory Rate 16 Blood Pressure 94/54 L Pulse Oximetry 91 90 92 12/01/21 05:42 Temperature 36.7 C Pulse Rate 72 Respiratory Rat
--- NOTE | 2021-12-01 07:46 | PM.PNCARD ---
Progress Note: A&P Assessment and Plan (1) Acute exacerbation of congestive heart failure: Code(s): I50.9 - Heart failure, unspecified Status: Acute Assessment and Plan: Acute on chronic mild diastolic heart failure. No systolic dysfunction or systolic heart failure and no valvular heart disease. She is third spacing in lungs, abdomen, and legs and low intravascular volume primarily due to pulmonary hypertension and possible cirrhosis of liver. Volume overload due to a combination of acute on chronic mild diastolic heart failure, worsening CKD due to cardiorenal syndrome, severe pulmonary hypertension, high output failure from anemia and possible cirrhosis of liver. Difficult to keep euvolemic due to cardiorenal syndrome. On Bumetanide 2 mg IV BID and Metolazone 5 mg daily. She is improving clinically with less sob and edema of legs. If this does not work then consider lasix drip or renal dose dopamine to enhance diuresis. Wean oxygen off as tolerated. Agree with fluid restriction up to 1.5 liters a day, which is giving her a significant negative fluid balance. (2) CKD (chronic kidney disease): Code(s): N18.9 - Chronic kidney disease, unspecified Status: Acute Assessment and Plan: Monitor renal function and electrolytes closely and replace as needed. Nephrology following. (3) Chronic anemia: Code(s): D64.9 - Anemia, unspecified Status: Acute Assessment and Plan: Microcytic anemia suggests blood loss or iron deficiency anemia. Workup and manage anemia. Received 1 unit PRBC transfusion. (4) Chronic obstructive pulmonary disease: Code(s): J44.9 - Chronic obstructive pulmonary disease, unspecified Status: Acute (5) Pulmonary hypertension: Code(s): I27.20 - Pulmonary hypertension, unspecified Status: Acute Assessment and Plan: Probably due to a combination of GUANACO and COPD, and diastolic dysfunction. (6) Obstructive sleep apnea: Code(s): G47.33 - Obstructive sleep apnea (adult) (pediatric) Status: Acute Subjective Date/time seen: 12/01/21 07:46 Denies chest pain or sob. Exam Const: General: cooperative, healthy appearing and comfortable Nutritional Appearance: obese Resp: Auscultation: no crackles, no rales, no rhonchi, wheezes and diminished lung sounds Cardio: Jugular venous distension: no JVD Rate: regular rate Rhythm: regular rhythm Heart sounds: no murmurs GI: GI Palp: No abdominal tenderness and Yes Soft to palpation Neuro: General: oriented to person, oriented to place and oriented to time Extrem: Right lower extremity: edema Left lower extremity: edema Other: Trace edema of both legs Objective Data Vital Signs Vital Signs: Vital Signs - 24 hr 11/30/21 07:59 11/30/21 08:00 11/30/21 12:00 Temperature 97.6 F 98.3 F Pulse Rate 75 84 Respiratory Rate 18 18 Blood Pressure 93/43 L 96/47 L Pulse Oximetry 92 96 90 11/30/21 16:00 11/30/21 20:00 11/30/21 20:45 Temperature 98.9 F 98.2 F Pulse Rate 84 84 Respiratory Rate 18 16 Blood Pressure 91/53 L 94/54 L Pulse Oximetry 85 L 90 83 L 11/30/21 21:15 11/30/21 22:00 12/01/21 00:00 Temperature 98.2 F Pulse Rate 83 78 Respiratory Rate 16 Blood Pressure 94/54 L Pulse Oximetry 91 90 12/01/21 04:00 12/01/21 04:40 12/01/21 05:42 Temperature 98.1 F Pulse Rate 74 72 Respiratory Rate 16 Blood Pressure 98/54 L Pulse Oximetry 92 96 Intake/Output Intake/Output: Intake & Output 11/28/21 11/29/21 11/30/21 12/01/21 23:59 23:59 23:59 23:59 Intake Total 2120 1600 940 750 Output Total 1950 3600 2700 1500 Balance 170 -9952 -1572 -954 Meds/Results Medications: Active Medications Generic Name Dose Route Start Last Admin Trade Name Freq PRN Reason Stop Dose Admin Albuterol 1 puff 11/21/21 14:00 11/30/21 20:33 Albuterol Sulfate (*Sp) Aerosol 1 Puff INHALATION 1 puff Q6HRT EMIR Administration Atorvastatin Ca
[2021-12-01 08:06] LABS: Glucose Point of Care 97 mg/dl (65-105)
[2021-12-01] MEDS: UMECLIDINIUM/VILANTEROL 62.5-25 MCG ELLIPTA 1 PUFF INHALATION (08:27)
[2021-12-01] MEDS: ALBUTEROL SULFATE (*SP) AEROSOL 1 PUFF INHALATION ×3 (08:27→19:38)
--- NOTE | 2021-12-01 09:15 | P.PNIM_ITS ---
Progress Note: A&P Assessment and Plan (1) Acute exacerbation of congestive heart failure: Code(s): I50.9 - Heart failure, unspecified Status: Acute Assessment and Plan: * Acute diastolic exacerbation of heart failure * changed to Bumex 2mg IV BID * Dr. Hopkins following and diuresing patient, treating cardiomyopathy/HTN/CHF * Strict I/O * Daily weights * Check ECHO - showed MV severe calcification, EF 65-70%, moderate TV regurg, severe pulm HTN with paP 69, right atrial pressure elevated. * CT scan showed 10 x 6 mm left lower lobe nodule with macroscopic fat attenuation unchanged since 09/08/2019 consistent with a hamartoma. Smooth septal line thickening at the bilateral lung bases consistent with mild pulmonary edema. Enlargement of the central pulmonary arteries consistent with pulmonary arterial hypertension. Cardiomegaly with prominent right atrial enlargement. Atherosclerotic coronary artery calcification. Tiny pericardial effusion. No pleural effusion. * BNP 6250 11/28/21 * Trend BP, BP is 98/54 * I think that she would benefit from a fluid restriction, started on a 1500ml daily restriction * Looking at her I&O she is now negative -4420 * Daily weights indicates that she has lost rough 1-2 lbs This lady would really benefit from following up at a CHF clinic (2) Renal failure: Code(s): N19 - Unspecified kidney failure Status: Acute Assessment and Plan: * Creatinine is better today at 1.90 * Monitor her renal function closely while diuresing * Avoid nephrotoxins * Appreciate nephrology consult * Keep MAPS >65 , BPs stable today 105/61 (3) Chronic anemia: Code(s): D64.9 - Anemia, unspecified Status: Acute Assessment and Plan: * Hemoglobin is stable but remains in the mid sevens 7.5 today * Continue iron supplementation, switched to IV for 5 bags * Also continue PPI as she was noted to have gastritis on EGD in September 2021 * Iron supplementation and continues anemia, combined with her significantly increased O2 requirement and soft BPs, * 1 unit RBC 11/21/21 * transfusing as needed. (4) Hypertension: Qualifiers: Hypertension type: essential hypertension Qualified Code(s): I10 - Essential (primary) hypertension Code(s): I10 - Essential (primary) hypertension Status: Acute Assessment and Plan: * Current BP is 105/61 * Blood pressures stable, soft sometimes, SBPs 90-100s. * Monitor closely while diuresing * holding norvasc and losartan at this time (5) COPD (chronic obstructive pulmonary disease): Qualifiers: COPD type: unspecified COPD Qualified Code(s): J44.9 - Chronic obstr uctive pulmonary disease, unspecified Code(s): J44.9 - Chronic obstructive pulmonary disease, unspecified Status: Chronic Assessment and Plan: * possible acute exacerbation today with CO2 retention and increased O2 requirement * ordered mucinex and inhaler scheduled. * appreciate pulmonary consult * unable to continue her non-formulary maintenance inhalers * Despite diuresis, she is maintaining the need for high levels of oxygen * ABG was near normal - some CO2 retention. 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
--- NOTE | 2021-12-01 09:15 | PM.IMPN ---
Progress Note: A&P Assessment and Plan (1) Acute exacerbation of congestive heart failure: Code(s): I50.9 - Heart failure, unspecified Status: Acute Assessment and Plan: Acute diastolic exacerbation of heart failure changed to Bumex 2mg IV BID Dr. Hopkins following and diuresing patient, treating cardiomyopathy/HTN/CHF Strict I/O Daily weights Check ECHO - showed MV severe calcification, EF 65-70%, moderate TV regurg, severe pulm HTN with paP 69, right atrial pressure elevated. CT scan showed 10 x 6 mm left lower lobe nodule with macroscopic fat attenuation unchanged since 09/08/2019 consistent with a hamartoma. Smooth septal line thickening at the bilateral lung bases consistent with mild pulmonary edema. Enlargement of the central pulmonary arteries consistent with pulmonary arterial hypertension. Cardiomegaly with prominent right atrial enlargement. Atherosclerotic coronary artery calcification. Tiny pericardial effusion. No pleural effusion. BNP 6250 11/28/21 Trend BP, BP is 98/54 I think that she would benefit from a fluid restriction, started on a 1500ml daily restriction Looking at her I&O she is now negative -4420 Daily weights indicates that she has lost rough 1-2 lbs This lady would really benefit from following up at a CHF clinic (2) Renal failure: Code(s): N19 - Unspecified kidney failure Status: Acute Assessment and Plan: Creatinine is better today at 1.90 Monitor her renal function closely while diuresing Avoid nephrotoxins Appreciate nephrology consult Keep MAPS >65 , BPs stable today 105/61 (3) Chronic anemia: Code(s): D64.9 - Anemia, unspecified Status: Acute Assessment and Plan: Hemoglobin is stable but remains in the mid sevens 7.5 today Continue iron supplementation, switched to IV for 5 bags Also continue PPI as she was noted to have gastritis on EGD in September 2021 Iron supplementation and continues anemia, combined with her significantly increased O2 requirement and soft BPs, 1 unit RBC 11/21/21 transfusing as needed. (4) Hypertension: Qualifiers: Hypertension type: essential hypertension Qualified Code(s): I10 - Essential (primary) hypertension Code(s): I10 - Essential (primary) hypertension Status: Acute Assessment and Plan: Current BP is 105/61 Blood pressures stable, soft sometimes, SBPs 90-100s. Monitor closely while diuresing holding norvasc and losartan at this time (5) COPD (chronic obstructive pulmonary disease): Qualifiers: COPD type: unspecified COPD Qualified Code(s): J44.9 - Chronic obstructive pulmonary disease, unspecified Code(s): J44.9 - Chronic obstructive pulmonary disease, unspecified Status: Chronic Assessment and Plan: possible acute exacerbation today with CO2 retention and increased O2 requirement ordered mucinex and inhaler scheduled. appreciate pulmonary consult unable to continue her non-formulary maintenance inhalers Despite diuresis, she is maintaining the need for high levels of oxygen ABG was near normal - some CO2 retention. 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
[2021-12-01] MEDS: EPOETIN ALFA 10,000 UNITS/ML VIAL 10000 UNITS SUB-Q (09:21)
[2021-12-01] MEDS: polyethylene glycoL 3350 17 GM POWD.PACK PO (09:21)
[2021-12-01] MEDS: IRON SUCROSE COMPLEX 200 MG in SODIUM CHLORIDE 0.9% IV 50 ML 120 MG IVPB (09:21)
[2021-12-01] MEDS: BUMETANIDE INJ 2.5 MG/10 ML VIAL 2 MG IV PUSH ×2 (09:21→17:45)
[2021-12-01] MEDS: GABAPENTIN 100 MG CAPSULE PO ×3 (09:22→17:45)
[2021-12-01] MEDS: guaiFENesin 12 HR 600 MG TABCR 1200 MG PO ×2 (09:22→20:52)
[2021-12-01] MEDS: metOLazone 5 MG TABLET PO (09:22)
[2021-12-01] MEDS: SENNA/DOCUSATE SODIUM TABLET 1 TAB PO (09:22)
[2021-12-01] MEDS: POLYSACCHARIDE IRON COMPLEX 150 MG CAPSULE PO ×2 (09:22→17:44)
[2021-12-01] MEDS: PANTOPRAZOLE 40 MG TABLET PO ×2 (09:22→17:45)
[2021-12-01] MEDS: EZETIMIBE 10 MG TABLET PO (09:22)
[2021-12-01] MEDS: ATORVASTATIN 40 MG TABLET PO (09:22)
[2021-12-01 11:53] LABS: Glucose Point of Care 131 mg/dl (65-105)
[2021-12-01 13:26] LABS: Basophils Absolute Auto 0.1 K/mm3 (0.0-0.1); Basophils Percent Auto 0.6 % (0.2-1.2); Eosinophils Absolute Auto 0.2 K/mm3 (0-0.3); Eosinophils Percent Auto 1.7 % (0-4.4); Hematocrit 27.1 % (37.0-47.0); Hemoglobin 7.8 g/dL (12.0-15.0); Immature Granulocyte Absolute 0.04 K/mm3 (0.00-0.031); Immature Granulocyte Percent A 0.4 % (0-0.5); Immature Platelet Fraction Pct 6.2 % (0.9-11.2); Lymphocytes Absolute Auto 0.99 K/mm3 (0.9-3.2); Lymphocytes Percent Auto 10.9 % (18.3-44.2); Mean Corpuscular HGB Conc 28.8 g/dl (32-36); Mean Corpuscular Hemoglobin 21.7 pg (26-34); Mean Corpuscular Volume 75.5 fl (80-100); Mean Platelet Volume 10.6 fl (7.4-10.4); Monocytes Absolute Auto 0.4 K/mm3 (0.1-0.6); Monocytes Percent Auto 4.9 % (2.6-8.5); Neutrophils Absolute Auto 7.4 K/mm3 (1.3-6.7); Neutrophils Percent Auto 81.5 % (45.5-73.1); Platelet Count Result 228 k/mm3 (150-375); Red Blood Count 3.59 M/mm3 (4.2-5.4); Red Cell Distribution Width 23.5 % (11.5-14.5); White Blood Count 9.1 K/mm3 (4.5-10.0)
[2021-12-01 13:34] LABS: Alanine Aminotransferase 10 U/L (4-35); Albumin Level 3.4 g/dL (3.5-5.1); Alkaline Phosphatase 140 U/L (38-126); Anion Gap 5 mmol/L (8-16); Aspartate Amino Transferase 39 U/L (14-36); Bilirubin,Total 0.9 mg/dL (0.2-1.3); Blood Urea Nitrogen 37 mg/dL (7-17); Calcium 9.2 mg/dL (8.4-10.2); Carbon Dioxide 38 mmol/L (22-30); Chloride 93 mmol/L (98-107); Estimated CRCL calculation 49 ml/min; Estimated Glomerular Filt Rate 37; Glucose 131 mg/dL (65-110); Potassium 3.2 mmol/L (3.4-5.0); Sodium 136 mmol/L (137-145)
[2021-12-01 13:49] LABS: Platelet Estimate Adequate (Adequate)
[2021-12-01 13:50] LABS: Anisocytosis 2+ (NORMAL); Hypochromasia 2+ (NORMAL); Ovalocytes 1+ (NORMAL); Target Cells 2+ (NORMAL); Tear Drop Cells 1+ (NORMAL)
[2021-12-01 16:40] LABS: Glucose Point of Care 151 mg/dl (65-105)
[2021-12-02] VITALS (14 sets, daily range): BP systolic 83–105; BP diastolic 47–61; PULSE 74–80; RESP 18–22; TEMP 36.3–36.4; O2SAT 86–96
[2021-12-02] MEDS: ALBUTEROL SULFATE (*SP) AEROSOL 1 PUFF INHALATION ×4 (01:06→21:10)
[2021-12-02 07:12] LABS: Basophils Absolute Auto 0.1 K/mm3 (0.0-0.1); Basophils Percent Auto 0.5 % (0.2-1.2); Eosinophils Absolute Auto 0.2 K/mm3 (0-0.3); Eosinophils Percent Auto 1.6 % (0-4.4); Hemoglobin 7.5 g/dL (12.0-15.0); Immature Granulocyte Absolute 0.05 K/mm3 (0.00-0.031); Immature Granulocyte Percent A 0.5 % (0-0.5); Immature Platelet Fraction Pct 7.2 % (0.9-11.2); Lymphocytes Absolute Auto 0.95 K/mm3 (0.9-3.2); Lymphocytes Percent Auto 10.2 % (18.3-44.2); Mean Corpuscular HGB Conc 28.8 g/dl (32-36); Mean Corpuscular Hemoglobin 21.9 pg (26-34); Mean Platelet Volume 10.9 fl (7.4-10.4); Monocytes Absolute Auto 0.4 K/mm3 (0.1-0.6); Monocytes Percent Auto 4.6 % (2.6-8.5); Neutrophils Absolute Auto 7.7 K/mm3 (1.3-6.7); Neutrophils Percent Auto 82.6 % (45.5-73.1); Nucleated Red Blood Cells Perc 0.2 % (0.0-0.2); Platelet Count Result 228 k/mm3 (150-375); Red Blood Count 3.42 M/mm3 (4.2-5.4); Red Cell Distribution Width 23.8 % (11.5-14.5); White Blood Count 9.3 K/mm3 (4.5-10.0)
[2021-12-02 07:28] LABS: Alanine Aminotransferase 9 U/L (4-35); Albumin Level 3.3 g/dL (3.5-5.1); Alkaline Phosphatase 141 U/L (38-126); Anion Gap 5 mmol/L (8-16); Aspartate Amino Transferase 39 U/L (14-36); Bilirubin,Total 0.9 mg/dL (0.2-1.3); Blood Urea Nitrogen 40 mg/dL (7-17); Calcium 9.1 mg/dL (8.4-10.2); Carbon Dioxide 38 mmol/L (22-30); Chloride 94 mmol/L (98-107); Estimated CRCL calculation 44 ml/min; Estimated Glomerular Filt Rate 32; Glucose 100 mg/dL (65-110); Magnesium 1.9 mg/dL (1.6-2.3); Potassium 2.8 mmol/L (3.4-5.0); Sodium 137 mmol/L (137-145)
[2021-12-02] MEDS: UMECLIDINIUM/VILANTEROL 62.5-25 MCG ELLIPTA 1 PUFF INHALATION (08:10)
[2021-12-02 08:11] LABS: Glucose Point of Care 110 mg/dl (65-105)
--- NOTE | 2021-12-02 08:30 | PM.IMPN ---
Progress Note: A&P Assessment and Plan (1) Acute exacerbation of congestive heart failure: Code(s): I50.9 - Heart failure, unspecified Status: Acute Assessment and Plan: Acute diastolic exacerbation of heart failure changed to Bumex 2mg IV BID Dr. Hopkins following and diuresing patient, treating cardiomyopathy/HTN/CHF Strict I/O Daily weights Check ECHO - showed MV severe calcification, EF 65-70%, moderate TV regurg, severe pulm HTN with paP 69, right atrial pressure elevated. CT scan showed 10 x 6 mm left lower lobe nodule with macroscopic fat attenuation unchanged since 09/08/2019 consistent with a hamartoma. Smooth septal line thickening at the bilateral lung bases consistent with mild pulmonary edema. Enlargement of the central pulmonary arteries consistent with pulmonary arterial hypertension. Cardiomegaly with prominent right atrial enlargement. Atherosclerotic coronary artery calcification. Tiny pericardial effusion. No pleural effusion. BNP 6250 11/28/21 Trend BP, BP is 98/54 I think that she would benefit from a fluid restriction, started on a 1500ml daily restriction Looking at her I&O she is now negative -4420 Daily weights indicates that she has lost rough 1-2 lbs This lady would really benefit from following up at a CHF clinic (2) Renal failure: Code(s): N19 - Unspecified kidney failure Status: Acute Assessment and Plan: Creatinine is better today at 1.90 Monitor her renal function closely while diuresing Avoid nephrotoxins Appreciate nephrology consult Keep MAPS >65 , BPs stable today 105/61 (3) Chronic anemia: Code(s): D64.9 - Anemia, unspecified Status: Acute Assessment and Plan: Hemoglobin is stable but remains in the mid sevens 7.5 today Continue iron supplementation, switched to IV for 5 bags Also continue PPI as she was noted to have gastritis on EGD in September 2021 Iron supplementation and continues anemia, combined with her significantly increased O2 requirement and soft BPs, 1 unit RBC 11/21/21 transfusing as needed. (4) Hypertension: Qualifiers: Hypertension type: essential hypertension Qualified Code(s): I10 - Essential (primary) hypertension Code(s): I10 - Essential (primary) hypertension Status: Acute Assessment and Plan: Current BP is 105/61 Blood pressures stable, soft sometimes, SBPs 90-100s. Monitor closely while diuresing holding norvasc and losartan at this time (5) COPD (chronic obstructive pulmonary disease): Qualifiers: COPD type: unspecified COPD Qualified Code(s): J44.9 - Chronic obstructive pulmonary disease, unspecified Code(s): J44.9 - Chronic obstructive pulmonary disease, unspecified Status: Chronic Assessment and Plan: possible acute exacerbation today with CO2 retention and increased O2 requirement ordered mucinex and inhaler scheduled. appreciate pulmonary consult unable to continue her non-formulary maintenance inhalers Despite diuresis, she is maintaining the need for high levels of oxygen ABG was near normal - some CO2 retention. RT is working to wean down her O2 requirement again PE ruled out Continue Anoro ellipta 1 puff inh daily and albuterol (6) Diabetes mellitus: Qualifiers: Diabetes mellitus type: type 2 Diabetes mellitus diet attendant insulin use: without diet attendant use Diabetes mellitus complication status: with hyperglycemia Qualified Code(s): E11.65 - Type 2 diabetes mellitus with hyperglycemia Code(s): E11.9 - Type 2 diabetes mellitus without complications Status: Chronic Assessment and Plan: Continue sliding scale insulin, Accu-Cheks, and hypoglycemic protocol Monitor follow accuchecks glycemic control controlled at this time, glucose 110 today (7) Generalized weakness: Code(s): R53.1 - Weakness Status: Acute
--- NOTE | 2021-12-02 09:22 | PM.PNCARD ---
Progress Note: A&P Assessment and Plan (1) Acute exacerbation of congestive heart failure: Code(s): I50.9 - Heart failure, unspecified Status: Acute Assessment and Plan: Acute on chronic mild diastolic heart failure. No systolic dysfunction or systolic heart failure and no valvular heart disease. She is third spacing in lungs, abdomen, and legs and low intravascular volume primarily due to pulmonary hypertension and possible cirrhosis of liver. Volume overload due to a combination of acute on chronic mild diastolic heart failure, worsening CKD due to cardiorenal syndrome, severe pulmonary hypertension, high output failure from anemia and possible cirrhosis of liver. Difficult to keep euvolemic due to cardiorenal syndrome. On Bumetanide 2 mg IV BID and Metolazone 5 mg daily. Spironolactone 25 mg BID added by nephrology. She is improving clinically with less sob and edema of legs. If this does not work then consider lasix drip or renal dose dopamine to enhance diuresis. Wean oxygen off as tolerated. Agree with fluid restriction up to 1.5 liters a day, which is giving her a significant negative fluid balance. Monitor electrolytes and replete. Monitor kidney function. Monitor BP. Will sign off. Please call with any questions. (2) CKD (chronic kidney disease): Code(s): N18.9 - Chronic kidney disease, unspecified Status: Acute Assessment and Plan: Monitor renal function and electrolytes closely and replace as needed. Nephrology following. (3) Chronic anemia: Code(s): D64.9 - Anemia, unspecified Status: Acute Assessment and Plan: Microcytic anemia suggests blood loss or iron deficiency anemia. Workup and manage anemia. Received 1 unit PRBC transfusion. (4) Chronic obstructive pulmonary disease: Code(s): J44.9 - Chronic obstructive pulmonary disease, unspecified Status: Acute (5) Pulmonary hypertension: Code(s): I27.20 - Pulmonary hypertension, unspecified Status: Acute Assessment and Plan: Probably due to a combination of GUANACO and COPD, and diastolic dysfunction. (6) Obstructive sleep apnea: Code(s): G47.33 - Obstructive sleep apnea (adult) (pediatric) Status: Acute Subjective Date/time seen: 12/02/21 09:22 She feels OK today. No chest pain or sob. On high flow oxygen. Exam Const: General: cooperative, healthy appearing and comfortable Nutritional Appearance: obese Resp: Auscultation: no crackles, no rales, no rhonchi, wheezes and diminished lung sounds Cardio: Jugular venous distension: no JVD Rate: regular rate Rhythm: regular rhythm Heart sounds: no murmurs GI: GI Palp: No abdominal tenderness and Yes Soft to palpation Neuro: General: oriented to person, oriented to place and oriented to time Extrem: Right lower extremity: edema Left lower extremity: edema Other: Mild edema of both legs Objective Data Vital Signs Vital Signs: Vital Signs - 24 hr 12/01/21 12:00 12/01/21 13:17 12/01/21 14:21 Temperature 98.3 F Pulse Rate 70 81 Respiratory Rate 18 Blood Pressure 89/54 L Pulse Oximetry 90 100 12/01/21 16:00 12/01/21 19:39 12/01/21 20:00 Temperature Pulse Rate 76 88 Respiratory Rate Blood Pressure Pulse Oximetry 92 94 12/01/21 22:00 12/02/21 00:00 12/02/21 00:44 Temperature 97.8 F Pulse Rate 80 80 Respiratory Rate 20 Blood Pressure 101/55 L Pulse Oximetry 91 96 12/02/21 04:00 12/02/21 06:00 12/02/21 08:10 Temperature 97.6 F Pulse Rate 80 78 Respiratory Rate 22 H Blood Pressure 105/61 Pulse Oximetry 94 96 Intake/Output Intake/Output: Intake & Output 11/29/21 11/30/21 12/01/21 12/02/21 23:59 23:59 23:59 23:59 Intake Total 2869 260 8634 240 Output Total 3600 2700 3150 1450 [facility] -2000 [phone] -1960 -1210 Meds/Results Medications: Active Medications Generic Name Dose Route Start Last Admin Trade Name Freq PRN Reason Stop Dose Admin
--- NOTE | 2021-12-02 09:52 | P.PNNP_ITS ---
Progress Note: A&P Assessment and Plan (1) SAMARA (acute kidney injury): Code(s): N17.9 - Acute kidney failure, unspecified Status: Acute Assessment and Plan: * as noted on admission - improving * suspect multifactorial: * CHF exacerbation * relative hypotension * cardiorenal syndrome (and associated chronic prerenal azotemia) * severe pulmonary HTN * anemia * Urine electrolytes are pre renal. * Her creatinine is a little bit higher today at 1.9. She is on quite a bit of diuretics and her intake / output is negative. * Because of her congestive heart failure we need to continue to diurese aggressively. * This means her creatinine might rise a little bit more. * I am hoping we can at least get her oxygen requirements down by continuing the diuretics. I know we will be able to get rid of the edema completely. * discharge pending improvement in oxygenation (2) CKD (chronic kidney disease): Code(s): N18.9 - Chronic kidney disease, unspecified Status: Acute Assessment and Plan: * creatinine has fluctuated ~ 0.9 - 1.3mg/dl in the last year * likely due to HTN, DM, vascular disease, and CHF with necessity of diuretic therapy * She may be reaching a new baseline (3) Acute exacerbation of CHF (congestive heart failure): Qualifiers: Heart failure type: systolic Qualified Code(s): I50.23 - Acute on chronic systolic (congestive) heart failure Code(s): I50.9 - Heart failure, unspecified Status: Acute Assessment and Plan: * Cardiology following * Echo shows severe pulmonary hypertension and [id number] tricuspid regurgitation. LV is good except for some grade 1 diastolic dysfunction. * Chest x-ray and CT do show excess lung water. * On fluid restriction. * on Bumex 2 b.i.d. IV and also metolazone 5mg per day. * Potassium is low. Will add spironolactone. * CO2 is creeping up there. Will add a see it is a low might as well. (4) Anemia: Code(s): D64.9 - Anemia, unspecified Status: Chronic Assessment and Plan: * some what of a chronic issue * possibly worsened by acute illness and renal dysfunction * s/p PRBC transfusion * On Venofer and Epogen. 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 Subjective Date/time seen: 12/02/21 09:52 Interval history: The patient feels better. Less short of breath. Swelling is better. She is still on quite a bit of oxygen. Exam Narrative: General: WD/WN AA female in NAD Heart: normal S1 and S2; no rub or gallop Lungs: decreased breath sounds at the bases with a few bibasilar crackles Abdomen: soft, nontender, nondistended, positive bowel sounds Extremities: no cyanosis or clubbing; 2 - 3+ bilateral edema Skin: no acute rash or subcu nodules. Objective Data Vital Signs Vital Signs:
--- NOTE | 2021-12-02 09:52 | PM.PNNEP ---
Progress Note: A&P Assessment and Plan (1) SAMARA (acute kidney injury): Code(s): N17.9 - Acute kidney failure, unspecified Status: Acute Assessment and Plan: as noted on admission - improving suspect multifactorial: CHF exacerbation relative hypotension cardiorenal syndrome (and associated chronic prerenal azotemia) severe pulmonary HTN anemia Urine electrolytes are pre renal. Her creatinine is a little bit higher today at 1.9. She is on quite a bit of diuretics and her intake / output is negative. Because of her congestive heart failure we need to continue to diurese aggressively. This means her creatinine might rise a little bit more. I am hoping we can at least get her oxygen requirements down by continuing the diuretics. I know we will be able to get rid of the edema completely. discharge pending improvement in oxygenation (2) CKD (chronic kidney disease): Code(s): N18.9 - Chronic kidney disease, unspecified Status: Acute Assessment and Plan: creatinine has fluctuated ~ 0.9 - 1.3mg/dl in the last year likely due to HTN, DM, vascular disease, and CHF with necessity of diuretic therapy She may be reaching a new baseline (3) Acute exacerbation of CHF (congestive heart failure): Qualifiers: Heart failure type: systolic Qualified Code(s): I50.23 - Acute on chronic systolic (congestive) heart failure Code(s): I50.9 - Heart failure, unspecified Status: Acute Assessment and Plan: Cardiology following Echo shows severe pulmonary hypertension and [id number] tricuspid regurgitation. LV is good except for some grade 1 diastolic dysfunction. Chest x-ray and CT do show excess lung water. On fluid restriction. on Bumex 2 b.i.d. IV and also metolazone 5mg per day. Potassium is low. Will add spironolactone. CO2 is creeping up there. Will add a see it is a low might as well. (4) Anemia: Code(s): D64.9 - Anemia, unspecified Status: Chronic Assessment and Plan: some what of a chronic issue possibly worsened by acute illness and renal dysfunction s/p PRBC transfusion On Venofer and Epogen. 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 Subjective Date/time seen: 12/02/21 09:52 Interval history: The patient feels better. Less short of breath. Swelling is better. She is still on quite a bit of oxygen. Exam Narrative: General: WD/WN AA female in NAD Heart: normal S1 and S2; no rub or gallop Lungs: decreased breath sounds at the bases with a few bibasilar crackles Abdomen: soft, nontender, nondistended, positive bowel sounds Extremities: no cyanosis or clubbing; 2 - 3+ bilateral edema Skin: no acute rash or subcu nodules. Objective Data Vital Signs Vital Signs: Vital Signs - 24 hr 12/01/21 12:00 12/01/21 13:17 12/01/21 14:21 Temperature 36.8 C Pulse Rate 70 81 Respiratory Rate 18 Blood Pressure 89/54 L Pulse Oximetry 90 100 12/01/21 16:00 12/01/21 19:39 12/01/21 20:00 Temperature Pulse Rate 76 88 Respiratory Rate Blood Pressure Pulse Oximetry 92 94 12/01/21 22:00 12/02/21 00:00 12/02/21 00:44 Temperature 36.6 C Pulse Rate 80 80 Respiratory Rate 20 Blood Pressure 101/55 L Pulse Oximetry 91 96
[2021-12-02] MEDS: BUMETANIDE INJ 2.5 MG/10 ML VIAL 2 MG IV PUSH ×2 (09:55→16:44)
[2021-12-02] MEDS: IRON SUCROSE COMPLEX 200 MG in SODIUM CHLORIDE 0.9% IV 50 ML 120 MG IVPB (09:56)
[2021-12-02] MEDS: POLYSACCHARIDE IRON COMPLEX 150 MG CAPSULE PO ×2 (10:03→16:45)
[2021-12-02] MEDS: guaiFENesin 12 HR 600 MG TABCR 1200 MG PO ×2 (10:03→21:31)
[2021-12-02] MEDS: POTASSIUM CHLORIDE 20 MEQ TABLET 40 MEQ PO (10:03)
[2021-12-02] MEDS: ATORVASTATIN 40 MG TABLET PO (10:03)
[2021-12-02] MEDS: PANTOPRAZOLE 40 MG TABLET PO ×2 (10:04→16:44)
[2021-12-02] MEDS: EZETIMIBE 10 MG TABLET PO (10:04)
[2021-12-02] MEDS: SENNA/DOCUSATE SODIUM TABLET 1 TAB PO (10:04)
[2021-12-02] MEDS: GABAPENTIN 100 MG CAPSULE PO ×3 (10:04→16:45)
[2021-12-02] MEDS: metOLazone 5 MG TABLET PO (10:04)
[2021-12-02] MEDS: SPIRONOLACTONE 25 MG TABLET PO ×2 (10:07→16:44)
[2021-12-02] MEDS: acetaZOLAMIDE TAB 250 MG TABLET 500 MG PO ×2 (10:40→16:44)
[2021-12-02] MEDS: ENOXAPARIN 40 MG/0.4 ML SYRINGE SUB-Q (11:56)
[2021-12-02 12:12] LABS: Glucose Point of Care 114 mg/dl (65-105)
--- NOTE | 2021-12-02 13:49 | PCDIET ---
Nutrition follow up. Current nutrition is a heart healthy diet and dietary supplement of Ensure Compact BID providing an additional 220kcal and 9g of protein to increase caloric intake. Reported intake is 25% x2, 100% x2, and 95%. Spoke to pt who reports that her appetite is good and she is drinking the dietary supplements. Pt reports that she doesn't want the dietary supplement sent every day. RDN placed orders to change dietary supplement from BID to PRN. Diet office has been notified. Pt is tolerating current diet with adequate intake. Agree with diet order at this time. No nutritional intervention at this time. No nutritional needs at this time. Will follow up in 7 days.
[2021-12-02 16:09] LABS: Potassium 3.2 mmol/L (3.4-5.0)
[2021-12-02 17:18] LABS: Glucose Point of Care 114 mg/dl (65-105)
--- NOTE | 2021-12-02 21:16 | PCRCNOTE ---
Pt unable to use CPAP at home settings due to high supplemental O2 demand. Pt currently on 15L HFNC, comfortable, and with an acceptable O2 saturation.
[2021-12-02 21:38] LABS: Glucose Point of Care 121 mg/dl (65-105)
[2021-12-03] VITALS (12 sets, daily range): BP systolic 103–111; BP diastolic 58–67; PULSE 71–92; RESP 18–22; TEMP 36.6–36.7; O2SAT 92–100
[2021-12-03] MEDS: ALBUTEROL SULFATE (*SP) AEROSOL 1 PUFF INHALATION ×3 (01:36→21:03)
[2021-12-03 07:29] LABS: Basophils Percent Auto 0.5 % (0.2-1.2); Eosinophils Absolute Auto 0.2 K/mm3 (0-0.3); Eosinophils Percent Auto 1.8 % (0-4.4); Hematocrit 27.4 % (37.0-47.0); Hemoglobin 7.8 g/dL (12.0-15.0); Immature Granulocyte Absolute 0.04 K/mm3 (0.00-0.031); Immature Granulocyte Percent A 0.5 % (0-0.5); Immature Platelet Fraction Pct 4.5 % (0.9-11.2); Lymphocytes Absolute Auto 0.91 K/mm3 (0.9-3.2); Lymphocytes Percent Auto 10.7 % (18.3-44.2); Mean Corpuscular HGB Conc 28.5 g/dl (32-36); Mean Corpuscular Hemoglobin 22.2 pg (26-34); Mean Corpuscular Volume 77.8 fl (80-100); Monocytes Absolute Auto 0.4 K/mm3 (0.1-0.6); Monocytes Percent Auto 4.7 % (2.6-8.5); Neutrophils Percent Auto 81.8 % (45.5-73.1); Nucleated Red Blood Cells Perc 0.2 % (0.0-0.2); Platelet Count Result 242 k/mm3 (150-375); Red Blood Count 3.52 M/mm3 (4.2-5.4); Red Cell Distribution Width 25.2 % (11.5-14.5); White Blood Count 8.5 K/mm3 (4.5-10.0)
[2021-12-03 07:36] LABS: Alanine Aminotransferase 9 U/L (4-35); Albumin Level 3.5 g/dL (3.5-5.1); Alkaline Phosphatase 146 U/L (38-126); Anion Gap 7 mmol/L (8-16); Aspartate Amino Transferase 37 U/L (14-36); Bilirubin,Total 1.1 mg/dL (0.2-1.3); Blood Urea Nitrogen 37 mg/dL (7-17); Calcium 9.4 mg/dL (8.4-10.2); Carbon Dioxide 39 mmol/L (22-30); Chloride 94 mmol/L (98-107); Estimated CRCL calculation 40 ml/min; Estimated Glomerular Filt Rate 29; Glucose 105 mg/dL (65-110); Potassium 2.9 mmol/L (3.4-5.0); Sodium 140 mmol/L (137-145)
[2021-12-03] MEDS: polyethylene glycoL 3350 17 GM POWD.PACK PO (08:36)
[2021-12-03] MEDS: BUMETANIDE INJ 2.5 MG/10 ML VIAL 2 MG IV PUSH (08:37)
[2021-12-03] MEDS: SENNA/DOCUSATE SODIUM TABLET 1 TAB PO (08:37)
[2021-12-03] MEDS: SPIRONOLACTONE 25 MG TABLET PO ×2 (08:37→17:34)
[2021-12-03] MEDS: ENOXAPARIN 40 MG/0.4 ML SYRINGE SUB-Q (08:37)
[2021-12-03] MEDS: EZETIMIBE 10 MG TABLET PO (08:37)
[2021-12-03] MEDS: PANTOPRAZOLE 40 MG TABLET PO ×2 (08:38→17:34)
[2021-12-03] MEDS: acetaZOLAMIDE TAB 250 MG TABLET 500 MG PO ×2 (08:38→17:35)
[2021-12-03] MEDS: GABAPENTIN 100 MG CAPSULE PO ×3 (08:38→17:35)
[2021-12-03] MEDS: guaiFENesin 12 HR 600 MG TABCR 1200 MG PO ×2 (08:38→20:46)
[2021-12-03] MEDS: POLYSACCHARIDE IRON COMPLEX 150 MG CAPSULE PO ×2 (08:38→17:34)
[2021-12-03] MEDS: metOLazone 5 MG TABLET PO (08:38)
[2021-12-03] MEDS: ATORVASTATIN 40 MG TABLET PO (08:38)
[2021-12-03] MEDS: EPOETIN ALFA 10,000 UNITS/ML VIAL 10000 UNITS SUB-Q (08:39)
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
--- NOTE | 2021-12-03 08:43 | PM.IMPN ---
Progress Note: A&P Assessment and Plan (1) Acute exacerbation of congestive heart failure: Code(s): I50.9 - Heart failure, unspecified Status: Acute Assessment and Plan: Acute diastolic exacerbation of heart failure changed Bumex 2mg IV BID to Bumex 2mg morning and 1 mg evening due to rising Creatinine 2.1 and 2.3. acetazolamide spironolactone and also metolazone 5mg per day. still requiring daily potassium supplements. Dr. Hopkins and Dr. Espinal following and diuresing patient, treating cardiomyopathy/HTN/CHF/ARF/CRF Strict I/O Daily weights Check ECHO - showed MV severe calcification, EF 65-70%, moderate TV regurg, severe pulm HTN with paP 69, right atrial pressure elevated. LV has grade [address] scan showed 10 x 6 mm left lower lobe nodule with macroscopic fat attenuation unchanged since 09/08/2019 consistent with a hamartoma. Smooth septal line thickening at the bilateral lung bases consistent with mild pulmonary edema. Enlargement of the central pulmonary arteries consistent with pulmonary arterial hypertension. Cardiomegaly with prominent right atrial enlargement. Atherosclerotic coronary artery calcification. Tiny pericardial effusion. No pleural effusion. BNP 4280 on 11/19/21, 3690 on 11/21/2021, and 6250 11/28/21. Trend BNP/CXR results/O2 dependence/weights/output. BP is improved today, 104/58, keep SBP >90 and/or MAPS >65-70 on fluid restriction, started on a 1500ml daily restriction Looking at her I&O she is now negative -4420 Daily weights indicates that she has lost rough 1-2 lbs CHF education ordered. patient would benefit from following up at a CHF clinic after discharge and close monitoring by Network Admin. (2) Renal failure: Code(s): N19 - Unspecified kidney failure Status: Acute Assessment and Plan: acute on CKD (chronic kidney disease) creatinine has fluctuated ~ 0.9 - 1.3mg/dl in the last year; may be reaching a new craetinine baseline in the low 2s. likely due to HTN, DM, vascular disease, and CHF with necessity of diuretic therapy Creatinine was better, less than 2, then started on 2mg Bumex BID, now creatinine 2.3 . Monitor her renal function closely while diuresing Avoid nephrotoxins Appreciate nephrology consult and treating Keep MAPS >65 , BPs stable today 104/58 ARF multifactorial: right heart failure, valvular failure, severe pulmonary HTN, CHF exacerbation, relative hypotension, cardiorenal syndrome (and associated chronic prerenal azotemia), anemia, Urine electrolytes are pre renal. diuretics to minimize the fluid burden on her pulmonary system. giving high doses of diuretics. closely monitor urine output for good output while on these high doses of diuretics. monitor if her oxygenation is better monitor if creatinine is rising, if this persist, may require dialysis if she becomes metabolically unstable. monitor if BPs start to drop (3) Chronic anemia: Code(s): D64.9 - Anemia, unspecified Status: Acute Assessment and Plan: CHRONIC. Hemoglobin is stable but remains in the mid 7's, 7.8 today Continue iron supplementation, switched to IV for 5 bags; Finished Venofer and on Epogen. Also continue PPI as she was noted to have gastritis on EGD in September 2021 Iron supplementation and continues anemia, combined with her significantly increased O2 requirement and soft BPs, 1 unit RBC 11/21/21 transfusing as needed. worsened by acute illness and renal dysfunction need to follow up with Fast Food Cashier Dr. Hanna and Project Control Analyst as an outpatient to continue Epogen doses/anemia tx. (4) Hypertension: Qualifiers: Hypertension type: essential hypertension Qualified Code(s): I10 - Essential (primary) hypertension Code(s): I10 - Essential (primary) hypertension Status: Acute Assessment and Plan: has NOT been a problem during this admission, due to the persistent diuresis/anemia/level of h
[2021-12-03 08:48] LABS: Glucose Point of Care 101 mg/dl (65-105)
[2021-12-03] MEDS: POTASSIUM CHLORIDE 20 MEQ TABLET 40 MEQ PO (09:16)
[2021-12-03] MEDS: UMECLIDINIUM/VILANTEROL 62.5-25 MCG ELLIPTA 1 PUFF INHALATION (09:39)
[2021-12-03 10:23] LABS: Anisocytosis 1+ (NORMAL); Macrocytosis 1+ (NORMAL); Ovalocytes 1+ (NORMAL); Platelet Estimate Adequate (Adequate); Target Cells 1+ (NORMAL)
[2021-12-03 10:24] LABS: Hypochromasia 2+ (NORMAL)
--- NOTE | 2021-12-03 11:16 | P.PNNP_ITS ---
Progress Note: A&P Assessment and Plan (1) SAMARA (acute kidney injury): Code(s): N17.9 - Acute kidney failure, unspecified Status: Acute Assessment and Plan: * as noted on admission - improving * suspect multifactorial: * CHF exacerbation * relative hypotension * cardiorenal syndrome (and associated chronic prerenal azotemia) * severe pulmonary HTN * anemia * Urine electrolytes are pre renal. * Her creatinine is a little bit higher today at 2.1. * We had a long discussion about her kidneys and her fluid. * We cannot fix her right-sided heart issues. All we can do is use diuretics to minimize the fluid burden. The most important fluid burden is that in her lungs. This is why we are giving high doses of diuretics. Her urine output is good and her oxygenation is better so we are achieving this goal, however her creatinine is rising. We are trying to do this without having to use dialysis. So far we seem to be succeeding. once she is on an appropriate amount of oxygen for discharge we can cut back on the diuretics to try to maintain the fluid status. So we will have to be satisfied with a higher creatinine to keep the fluid status appropriate. However at some point her kidney function will be Poor enough such that we cannot keep all the fluid off without making the kidney poisons too high and at that point she will need dialysis. We are not at that point yet. (2) CKD (chronic kidney disease): Code(s): N18.9 - Chronic kidney disease, unspecified Status: Acute Assessment and Plan: * creatinine has fluctuated ~ 0.9 - 1.3mg/dl in the last year * likely due to HTN, DM, vascular disease, and CHF with necessity of diuretic therapy * She may be reaching a new baseline In the low 2s. (3) Acute exacerbation of CHF (congestive heart failure): Qualifiers: Heart failure type: systolic Qualified Code(s): I50.23 - Acute on chronic systolic (congestive) heart failure Code(s): I50.9 - Heart failure, unspecified Status: Acute Assessment and Plan: * Cardiology following * Echo shows severe pulmonary hypertension and [id number]-[id number] tricuspid regurgitation. LV is good except for some grade 1 diastolic dysfunction. * Chest x-ray and CT do show excess lung water. * On fluid restriction. * on Bumex 2 b.i.d. IV , acetazolamide spironolactoneand also metolazone 5mg per day. * she still requires potassium supplements. (4) Anemia: Code(s): D64.9 - Anemia, unspecified Status: Chronic Assessment and Plan: * some what of a chronic issue * possibly worsened by acute illness and renal dysfunction * s/p PRBC transfusion * Finished Venofer and on Epogen. she may need to see Dr. Hanna as an outpatient to continue Epogen doses (5) Hypertension: Code(s): I10 - Essential (primary) hypertension Status: Chronic Assessment and Plan: * not an issue at this time * BP on the soft/relatively low at this time * On no antihypertensives (6) Diabetes mellitus: Qualifiers: Diabetes mellitus type: type 2 Diabetes mellitus terminal manager insulin use: without chcf use Diabetes mellitus complication status: with hyperglycemia Qualified Code(s): E11.65 - Type 2 diabetes mellitus with hyperglycemia Code(s): E11.9 - Type 2 diabetes mellitus without complications Status: Chronic Assessment and Plan: * on Accu-Cheks and sliding-scale insulin Will continue to follow. Subjective Date/time seen: 12/03/21 11:16 Interval histor
--- NOTE | 2021-12-03 11:16 | PM.PNNEP ---
Progress Note: A&P Assessment and Plan (1) SAMARA (acute kidney injury): Code(s): N17.9 - Acute kidney failure, unspecified Status: Acute Assessment and Plan: as noted on admission - improving suspect multifactorial: CHF exacerbation relative hypotension cardiorenal syndrome (and associated chronic prerenal azotemia) severe pulmonary HTN anemia Urine electrolytes are pre renal. Her creatinine is a little bit higher today at 2.1. We had a long discussion about her kidneys and her fluid. We cannot fix her right-sided heart issues. All we can do is use diuretics to minimize the fluid burden. The most important fluid burden is that in her lungs. This is why we are giving high doses of diuretics. Her urine output is good and her oxygenation is better so we are achieving this goal, however her creatinine is rising. We are trying to do this without having to use dialysis. So far we seem to be succeeding. once she is on an appropriate amount of oxygen for discharge we can cut back on the diuretics to try to maintain the fluid status. So we will have to be satisfied with a higher creatinine to keep the fluid status appropriate. However at some point her kidney function will be Poor enough such that we cannot keep all the fluid off without making the kidney poisons too high and at that point she will need dialysis. We are not at that point yet. (2) CKD (chronic kidney disease): Code(s): N18.9 - Chronic kidney disease, unspecified Status: Acute Assessment and Plan: creatinine has fluctuated ~ 0.9 - 1.3mg/dl in the last year likely due to HTN, DM, vascular disease, and CHF with necessity of diuretic therapy She may be reaching a new baseline In the low 2s. (3) Acute exacerbation of CHF (congestive heart failure): Qualifiers: Heart failure type: systolic Qualified Code(s): I50.23 - Acute on chronic systolic (congestive) heart failure Code(s): I50.9 - Heart failure, unspecified Status: Acute Assessment and Plan: Cardiology following Echo shows severe pulmonary hypertension and ixib-pw-[id number] tricuspid regurgitation. LV is good except for some grade 1 diastolic dysfunction. Chest x-ray and CT do show excess lung water. On fluid restriction. on Bumex 2 b.i.d. IV , acetazolamide spironolactoneand also metolazone 5mg per day. she still requires potassium supplements. (4) Anemia: Code(s): D64.9 - Anemia, unspecified Status: Chronic Assessment and Plan: some what of a chronic issue possibly worsened by acute illness and renal dysfunction s/p PRBC transfusion Finished Venofer and on Epogen. she may need to see Dr. Hanna as an outpatient to continue Epogen doses (5) Hypertension: Code(s): I10 - Essential (primary) hypertension Status: Chronic Assessment and Plan: not an issue at this time BP on the soft/relatively low at this time On no antihypertensives (6) Diabetes mellitus: Qualifiers: Diabetes mellitus type: type 2 Diabetes mellitus cheese supervisor insulin use: without senior living use Diabetes mellitus complication status: with hyperglycemia Qualified Code(s): E11.65 - Type 2 diabetes mellitus with hyperglycemia Code(s): E11.9 - Type 2 diabetes mellitus without complications Status: Chronic Assessment and Plan: on Accu-Cheks and sliding-scale insulin Will continue to follow. Subjective Date/time seen: 12/03/21 11:16 Interval history: The patient feels better. Less short of breath. Swelling is better. On a little less oxygen. Exam Narrative: General: WD/WN AA female in NAD Heart: normal S1 and S2; no rub Lungs: decreased breath sounds at the bases with rare crackles Abdomen: soft, nontender, nondistended, positive bowel sounds Extremities: no cyanosis or clubbing; 2 - 3+ bilateral edema Skin: no acute rash Objective Data Vi
[2021-12-03 12:25] LABS: Glucose Point of Care 106 mg/dl (65-105)
[2021-12-03] MEDS: POTASSIUM CHLORIDE 20 MEQ TABLET PO (12:37)
[2021-12-03 16:20] LABS: Blood Urea Nitrogen 39 mg/dL (7-17); Calcium 9.6 mg/dL (8.4-10.2); Carbon Dioxide > 40 mmol/L (22-30); Chloride 93 mmol/L (98-107); Estimated CRCL calculation 37 ml/min; Estimated Glomerular Filt Rate 26; Glucose 124 mg/dL (65-110); Potassium 3.3 mmol/L (3.4-5.0); Sodium 139 mmol/L (137-145)
[2021-12-03 17:07] LABS: Glucose Point of Care 109 mg/dl (65-105)
[2021-12-03] MEDS: BUMETANIDE INJ 1 MG/4 ML VIAL IV PUSH (17:35)
[2021-12-03] MEDS: POTASSIUM CHLORIDE 10 MEQ TABLET PO (17:35)
[2021-12-03 21:32] LABS: Glucose Point of Care 122 mg/dl (65-105)
[2021-12-04] VITALS (13 sets, daily range): BP systolic 95–108; BP diastolic 52–70; PULSE 66–83; RESP 20; TEMP 36.1–36.8; O2SAT 91–98
[2021-12-04] MEDS: ALBUTEROL SULFATE (*SP) AEROSOL 1 PUFF INHALATION ×4 (02:16→21:20)
[2021-12-04 06:30] LABS: Hematocrit 28.2 % (37.0-47.0); Hemoglobin 7.9 g/dL (12.0-15.0); Immature Platelet Fraction Pct 4.2 % (0.9-11.2); Mean Corpuscular Hemoglobin 22.1 pg (26-34); Mean Platelet Volume 10.6 fl (7.4-10.4); Platelet Count Result 247 k/mm3 (150-375); Red Blood Count 3.57 M/mm3 (4.2-5.4)
[2021-12-04 06:43] LABS: Alanine Aminotransferase 9 U/L (4-35); Albumin Level 3.7 g/dL (3.5-5.1); Alkaline Phosphatase 139 U/L (38-126); Anion Gap 6 mmol/L (8-16); Aspartate Amino Transferase 37 U/L (14-36); Bilirubin,Total 1.2 mg/dL (0.2-1.3); Blood Urea Nitrogen 38 mg/dL (7-17); Calcium 9.4 mg/dL (8.4-10.2); Carbon Dioxide 39 mmol/L (22-30); Chloride 94 mmol/L (98-107); Estimated CRCL calculation 38 ml/min; Estimated Glomerular Filt Rate 27; Glucose 107 mg/dL (65-110); Potassium 3.3 mmol/L (3.4-5.0); Sodium 139 mmol/L (137-145)
[2021-12-04 08:10] LABS: Glucose Point of Care 100 mg/dl (65-105)
[2021-12-04] MEDS: UMECLIDINIUM/VILANTEROL 62.5-25 MCG ELLIPTA 1 PUFF INHALATION (08:29)
[2021-12-04] MEDS: polyethylene glycoL 3350 17 GM POWD.PACK PO (09:00)
[2021-12-04] MEDS: guaiFENesin 12 HR 600 MG TABCR 1200 MG PO ×2 (09:03→20:32)
[2021-12-04] MEDS: acetaZOLAMIDE TAB 250 MG TABLET 500 MG PO ×2 (09:04→17:10)
[2021-12-04] MEDS: POTASSIUM CHLORIDE 20 MEQ TABLET 40 MEQ PO (09:04)
[2021-12-04] MEDS: ATORVASTATIN 40 MG TABLET PO (09:04)
[2021-12-04] MEDS: PANTOPRAZOLE 40 MG TABLET PO ×2 (09:04→17:10)
[2021-12-04] MEDS: SENNA/DOCUSATE SODIUM TABLET 1 TAB PO (09:05)
[2021-12-04] MEDS: ENOXAPARIN 40 MG/0.4 ML SYRINGE SUB-Q (09:05)
[2021-12-04] MEDS: POLYSACCHARIDE IRON COMPLEX 150 MG CAPSULE PO ×2 (09:05→17:10)
[2021-12-04] MEDS: BUMETANIDE INJ 2.5 MG/10 ML VIAL 2 MG IV PUSH (09:05)
[2021-12-04] MEDS: GABAPENTIN 100 MG CAPSULE PO ×3 (09:05→17:10)
[2021-12-04] MEDS: POTASSIUM CHLORIDE 10 MEQ TABLET.ER PO (09:05)
[2021-12-04] MEDS: EZETIMIBE 10 MG TABLET PO (09:05)
[2021-12-04] MEDS: SPIRONOLACTONE 25 MG TABLET PO ×2 (09:05→17:12)
[2021-12-04] MEDS: metOLazone 5 MG TABLET PO (09:06)
--- NOTE | 2021-12-04 10:54 | P.PNNP_ITS ---
Progress Note: A&P Assessment and Plan (1) SAMARA (acute kidney injury): Code(s): N17.9 - Acute kidney failure, unspecified Status: Acute Assessment and Plan: * as noted on admission * suspect multifactorial: * CHF exacerbation * relative hypotension * cardiorenal syndrome (and associated chronic prerenal azotemia) * severe pulmonary HTN * anemia * Urine electrolytes are pre renal. * creatinine has been running higher than baseline but relatively stable * Dr. Espinal already had an extensive discussion with her regarding her fluid status and cardiac issues (see his last note from 12/03/21) * this is likely a situation where we have to accept a higher creatinine to keep her volume status relatively stable -- unfortunately, this will put her at high risk of needing dialysis in the near future (2) CKD (chronic kidney disease): Code(s): N18.9 - Chronic kidney disease, unspecified Status: Acute Assessment and Plan: * creatinine has fluctuated ~ 0.9 - 1.3mg/dl in the last year * likely due to HTN, DM, vascular disease, and CHF with necessity of diuretic therapy * She may be reaching a new baseline in the low 2s (see #1) (3) Acute exacerbation of CHF (congestive heart failure): Qualifiers: Heart failure type: systolic Qualified Code(s): I50.23 - Acute on chronic systolic (congestive) heart failure Code(s): I50.9 - Heart failure, unspecified Status: Acute Assessment and Plan: * Cardiology following * Echo shows severe pulmonary hypertension and ysok-yv-gvxrfdmc tricuspid regurgitation; LV is good except for some grade 1 diastolic dysfunction * Chest x-ray and CT do show excess lung water * continue fluid restriction * on bumex, acetazolamide, spironolactone, and metolazone * she still requires potassium supplements as well (4) Anemia: Code(s): D64.9 - Anemia, unspecified Status: Chronic Assessment and Plan: * some what of a chronic issue * possibly worsened by acute illness and renal dysfunction * s/p PRBC transfusion * s/p course of venofer * on Epogen * may need to follow-up with Dr. Hanna to continue this as an outpatient (5) Hypertension: Code(s): I10 - Essential (primary) hypertension Status: Chronic Assessment and Plan: * not an issue at this time * BP on the soft/relatively low at this time * on no antihypertensives (6) Diabetes mellitus: Qualifiers: Diabetes mellitus complication status: with hyperglycemia Diabetes mellitus moth exterminator insulin use: without long-term use Diabetes mellitus type: type 2 Qualified Code(s): E11.65 - Type 2 diabetes mellitus with hyperglycemia Code(s): E11.9 - Type 2 diabetes mellitus without complications Status: Chronic Assessment and Plan: * on Accu-Cheks * sliding-scale insulin Will continue to follow. Subjective Date/time seen: 12/04/21 10:54 Chart reviewed since last seen - assuming care from Dr. Espinal; overall, sees to be doing better; still requiring supplemetal oxygen but SOB and MULLIGAN is doing better (but still present); no other issues/events overnight or earlier this AM. Exam Narrative: General: WD/WN AA female in NAD Heart: normal S1 and S2; no rub Lungs: decreased breath sounds at the bases with a few crackles Abdomen: soft, nontender, nondistended, positive bowel sounds Extremities: no cyanosis or clubbing; 2+ bilateral edema Skin: warm and dry Objective Data Vital Signs V
--- NOTE | 2021-12-04 10:54 | PM.PNNEP ---
Progress Note: A&P Assessment and Plan (1) SAMARA (acute kidney injury): Code(s): N17.9 - Acute kidney failure, unspecified Status: Acute Assessment and Plan: as noted on admission suspect multifactorial: CHF exacerbation relative hypotension cardiorenal syndrome (and associated chronic prerenal azotemia) severe pulmonary HTN anemia Urine electrolytes are pre renal. creatinine has been running higher than baseline but relatively stable Dr. Espinal already had an extensive discussion with her regarding her fluid status and cardiac issues (see his last note from 12/03/21) this is likely a situation where we have to accept a higher creatinine to keep her volume status relatively stable -- unfortunately, this will put her at high risk of needing dialysis in the near future (2) CKD (chronic kidney disease): Code(s): N18.9 - Chronic kidney disease, unspecified Status: Acute Assessment and Plan: creatinine has fluctuated ~ 0.9 - 1.3mg/dl in the last year likely due to HTN, DM, vascular disease, and CHF with necessity of diuretic therapy She may be reaching a new baseline in the low 2s (see #1) (3) Acute exacerbation of CHF (congestive heart failure): Qualifiers: Heart failure type: systolic Qualified Code(s): I50.23 - Acute on chronic systolic (congestive) heart failure Code(s): I50.9 - Heart failure, unspecified Status: Acute Assessment and Plan: Cardiology following Echo shows severe pulmonary hypertension and jiwa-gz-mjwbizuj tricuspid regurgitation; LV is good except for some grade 1 diastolic dysfunction Chest x-ray and CT do show excess lung water continue fluid restriction on bumex, acetazolamide, spironolactone, and metolazone she still requires potassium supplements as well (4) Anemia: Code(s): D64.9 - Anemia, unspecified Status: Chronic Assessment and Plan: some what of a chronic issue possibly worsened by acute illness and renal dysfunction s/p PRBC transfusion s/p course of zoey on Epogen may need to follow-up with Dr. Hanna to continue this as an outpatient (5) Hypertension: Code(s): I10 - Essential (primary) hypertension Status: Chronic Assessment and Plan: not an issue at this time BP on the soft/relatively low at this time on no antihypertensives (6) Diabetes mellitus: Qualifiers: Diabetes mellitus complication status: with hyperglycemia Diabetes mellitus prison insulin use: without continuous churn buttermaker use Diabetes mellitus type: type 2 Qualified Code(s): E11.65 - Type 2 diabetes mellitus with hyperglycemia Code(s): E11.9 - Type 2 diabetes mellitus without complications Status: Chronic Assessment and Plan: on Accu-Cheks sliding-scale insulin Will continue to follow. Subjective Date/time seen: 12/04/21 10:54 Chart reviewed since last seen - assuming care from Dr. Espinal; overall, sees to be doing better; still requiring supplemetal oxygen but SOB and MULLIGAN is doing better (but still present); no other issues/events overnight or earlier this AM. Exam Narrative: General: WD/WN AA female in NAD Heart: normal S1 and S2; no rub Lungs: decreased breath sounds at the bases with a few crackles Abdomen: soft, nontender, nondistended, positive bowel sounds Extremities: no cyanosis or clubbing; 2+ bilateral edema Skin: warm and dry Objective Data Vital Signs Vital Signs: Vital Signs Temp Pulse Resp BP Pulse Ox 12/04/21 08:29 94 12/04/21 08:00 76 91 12/04/21 06:00 36.1 C L 75 20 108/70 92 12/04/21 04:00 79 12/04/21 02:19 94 12/04/21 00:00 81 12/03/21 22:00 36.6 C 92 20 111/65 95 12/03/21 20:00 78 95 12/03/21 16:00 73 12/03/21 14:00 36.7 C 76 18 103/67 100 12/03/21 13:54 74 22 H 12/03/21 12:00 74 Intake/Output Intake/Output: Intake & Output
[2021-12-04 11:42] LABS: Glucose Point of Care 118 mg/dl (65-105)
--- NOTE | 2021-12-04 13:18 | PM.IMPN ---
Progress Note: A&P Assessment and Plan (1) Acute exacerbation of congestive heart failure: Code(s): I50.9 - Heart failure, unspecified Status: Acute Assessment and Plan: Acute diastolic exacerbation of heart failure Continue Bumex 2mg morning and 1 mg evening due to rising Creatinine, 2.2 today acetazolamide spironolactone and also metolazone 5mg per day. still requiring daily potassium supplements. Dr. Hopkins and Dr. Espinal following and diuresing patient, treating cardiomyopathy/HTN/CHF/ARF/CRF Strict I/O Daily weights Check ECHO - showed MV severe calcification, EF 65-70%, moderate TV regurg, severe pulm HTN with paP 69, right atrial pressure elevated. LV has grade [address] scan showed 10 x 6 mm left lower lobe nodule with macroscopic fat attenuation unchanged since 09/08/2019 consistent with a hamartoma. Smooth septal line thickening at the bilateral lung bases consistent with mild pulmonary edema. Enlargement of the central pulmonary arteries consistent with pulmonary arterial hypertension. Cardiomegaly with prominent right atrial enlargement. Atherosclerotic coronary artery calcification. Tiny pericardial effusion. No pleural effusion. BNP 4280 on 11/19/21, 3690 on 11/21/2021, and 6250 11/28/21. Monitor BNP/CXR results/O2 dependence/weights/output. BP soft, but stable, keep SBP >90 and/or MAPS >65-70 on fluid restriction, started on a 1500ml daily restriction Daily weights indicates that she has lost rough 1-2 lbs CHF education ordered. patient would benefit from following up at a CHF clinic after discharge and close monitoring by Whiting Machine Operator. (2) Renal failure: Code(s): N19 - Unspecified kidney failure Status: Acute Assessment and Plan: acute on CKD (chronic kidney disease) creatinine has fluctuated ~ 0.9 - 1.3mg/dl in the last year; may be reaching a new craetinine baseline in the low 2s. likely due to HTN, DM, vascular disease, and CHF with necessity of diuretic therapy Creatinine was better, less than 2, then started on 2mg Bumex BID, now creatinine 2.2 Monitor her renal function closely while diuresing Avoid nephrotoxins Appreciate nephrology consult and treating Keep MAPS >65 , BPs stable today 104/58 ARF multifactorial: right heart failure, valvular failure, severe pulmonary HTN, CHF exacerbation, relative hypotension, cardiorenal syndrome (and associated chronic prerenal azotemia), anemia, Urine electrolytes are pre renal. diuretics to minimize the fluid burden on her pulmonary system. giving high doses of diuretics. closely monitor urine output for good output while on these high doses of diuretics. monitor if her oxygenation is better monitor if creatinine is rising, if this persist, may require dialysis if she becomes metabolically unstable. monitor if BPs start to drop (3) Chronic anemia: Code(s): D64.9 - Anemia, unspecified Status: Acute Assessment and Plan: CHRONIC Hemoglobin is stable but remains in the mid 7's, 7.8-->7.9 today Continue iron supplementation, switched to IV for 5 bags; Finished Venofer and on Epogen. Also continue PPI as she was noted to have gastritis on EGD in September 2021 Iron supplementation and continues anemia, combined with her significantly increased O2 requirement and soft BPs, 1 unit RBC 11/21/21 transfuse as needed. worsened by acute illness and renal dysfunction need to follow up with Boiler Cleaner Dr. Hanna and Warehouse Order Selector as an outpatient to continue Epogen doses/anemia tx. (4) Hypertension: Qualifiers: Hypertension type: essential hypertension Qualified Code(s): I10 - Essential (primary) hypertension Code(s): I10 - Essential (primary) hypertension Status: Acute Assessment and Plan: has NOT been a problem during this admission, due to the persistent diuresis/anemia/level of heart failure. Blood pressures stable, soft sometimes, SBPs 90-100s. Monitor closely while diuresing holding n
[2021-12-04 16:48] LABS: Glucose Point of Care 154 mg/dl (65-105)
[2021-12-04] MEDS: BUMETANIDE INJ 1 MG/4 ML VIAL IV PUSH (17:09)
[2021-12-04 20:54] LABS: Glucose Point of Care 127 mg/dl (65-105)
[2021-12-05] VITALS (12 sets, daily range): BP systolic 97–106; BP diastolic 45–64; PULSE 74–88; RESP 14–20; TEMP 36.2–36.8; O2SAT 88–95
[2021-12-05] MEDS: ALBUTEROL SULFATE (*SP) AEROSOL 1 PUFF INHALATION ×4 (02:32→20:59)
[2021-12-05 06:50] LABS: Hematocrit 27.4 % (37.0-47.0); Hemoglobin 7.7 g/dL (12.0-15.0); Immature Platelet Fraction Pct 4.1 % (0.9-11.2); Mean Corpuscular HGB Conc 28.1 g/dl (32-36); Mean Corpuscular Hemoglobin 22.4 pg (26-34); Mean Corpuscular Volume 79.9 fl (80-100); Mean Platelet Volume 11.1 fl (7.4-10.4); Platelet Count Result 253 k/mm3 (150-375); Red Blood Count 3.43 M/mm3 (4.2-5.4); Red Cell Distribution Width 26.5 % (11.5-14.5)
[2021-12-05 07:01] LABS: Alanine Aminotransferase 10 U/L (4-35); Albumin Level 3.5 g/dL (3.5-5.1); Alkaline Phosphatase 137 U/L (38-126); Anion Gap 10 mmol/L (8-16); Aspartate Amino Transferase 37 U/L (14-36); Blood Urea Nitrogen 41 mg/dL (7-17); Calcium 9.5 mg/dL (8.4-10.2); Carbon Dioxide 37 mmol/L (22-30); Chloride 94 mmol/L (98-107); Estimated CRCL calculation 36 ml/min; Estimated Glomerular Filt Rate 27; Glucose 115 mg/dL (65-110); Potassium 3.3 mmol/L (3.4-5.0); Sodium 141 mmol/L (137-145)
[2021-12-05 08:07] LABS: Glucose Point of Care 132 mg/dl (65-105)
[2021-12-05] MEDS: ENOXAPARIN 40 MG/0.4 ML SYRINGE SUB-Q (08:34)
[2021-12-05] MEDS: PANTOPRAZOLE 40 MG TABLET PO ×2 (08:35→16:44)
[2021-12-05] MEDS: metOLazone 5 MG TABLET PO (08:36)
[2021-12-05] MEDS: acetaZOLAMIDE TAB 250 MG TABLET 500 MG PO ×2 (08:36→16:42)
[2021-12-05] MEDS: SPIRONOLACTONE 25 MG TABLET PO ×2 (08:36→16:41)
[2021-12-05] MEDS: GABAPENTIN 100 MG CAPSULE PO ×3 (08:37→16:42)
[2021-12-05] MEDS: POTASSIUM CHLORIDE 10 MEQ TABLET.ER PO ×2 (08:37→16:41)
[2021-12-05] MEDS: SENNA/DOCUSATE SODIUM TABLET 1 TAB PO (08:37)
[2021-12-05] MEDS: EZETIMIBE 10 MG TABLET PO (08:38)
[2021-12-05] MEDS: polyethylene glycoL 3350 17 GM POWD.PACK PO (08:39)
[2021-12-05] MEDS: guaiFENesin 12 HR 600 MG TABCR 1200 MG PO ×2 (08:39→21:19)
[2021-12-05] MEDS: ATORVASTATIN 40 MG TABLET PO (08:39)
[2021-12-05] MEDS: POLYSACCHARIDE IRON COMPLEX 150 MG CAPSULE PO ×2 (08:40→16:41)
[2021-12-05] MEDS: UMECLIDINIUM/VILANTEROL 62.5-25 MCG ELLIPTA 1 PUFF INHALATION (08:45)
[2021-12-05] MEDS: BUMETANIDE INJ 2.5 MG/10 ML VIAL 2 MG IV PUSH (09:20)
--- NOTE | 2021-12-05 11:45 | PM.IMPN ---
Progress Note: A&P Assessment and Plan (1) Acute exacerbation of congestive heart failure: Code(s): I50.9 - Heart failure, unspecified Status: Acute Assessment and Plan: Acute diastolic exacerbation of heart failure Continue Bumex 2mg morning and 1 mg evening, due to rising Creatinine, 2.2 today acetazolamide spironolactone and also metolazone 5mg per day. still requiring daily potassium supplements. Dr. Hopkins and Dr. Espinal following and diuresing patient, treating cardiomyopathy/HTN/CHF/ARF/CRF Strict I/O -1185 Daily weights 12/04/2021 157 today 143.5 Check ECHO - showed MV severe calcification, EF 65-70%, moderate TV regurg, severe pulm HTN with paP 69, right atrial pressure elevated. LV has grade [address] scan showed mild pulmonary edema. Enlargement of the central pulmonary arteries consistent with pulmonary arterial hypertension and Tiny pericardial effusion. No pleural effusion. BNP 4280 on 11/19/21, 3690 on 11/21/2021, and 6250 11/28/21. Repeat tomorrow Continue fluid restriction CHF education ordered. patient would benefit from following up at a CHF clinic after discharge and close monitoring by Online Program Coordinator. (2) Renal failure: Code(s): N19 - Unspecified kidney failure Status: Acute Assessment and Plan: acute on CKD (chronic kidney disease) creatinine baseline 0.9 - 1.3mg/dl today 2.20 likely due to HTN, DM, vascular disease, and CHF with necessity of diuretic therapy Monitor her renal function closely while diuresing Avoid nephrotoxins Appreciate nephrology consult and treating Continue to monitor I&O (3) Chronic anemia: Code(s): D64.9 - Anemia, unspecified Status: Acute Assessment and Plan: CHRONIC Hemoglobin is stable but remains in the mid 7's, 7.8-->7.9 today Continue iron supplementation, switched to IV for 5 bags; Finished Venofer and on Epogen. Also continue PPI as she was noted to have gastritis on EGD in September 2021 Iron supplementation and continues anemia, combined with her significantly increased O2 requirement and soft BPs, 1 unit RBC 11/21/21 transfuse as needed. worsened by acute illness and renal dysfunction need to follow up with Payroll And Benefits Coordinator Dr. Hanna and Creative Intern as an outpatient to continue Epogen doses/anemia tx. (4) Hypertension: Qualifiers: Hypertension type: essential hypertension Qualified Code(s): I10 - Essential (primary) hypertension Code(s): I10 - Essential (primary) hypertension Status: Acute Assessment and Plan: Blood pressure soft Monitor closely while diuresing holding norvasc and losartan at this time, will determine if appropriate on discharge (5) COPD (chronic obstructive pulmonary disease): Qualifiers: COPD type: unspecified COPD Qualified Code(s): J44.9 - Chronic obstructive pulmonary disease, unspecified Code(s): J44.9 - Chronic obstructive pulmonary disease, unspecified Status: Chronic Assessment and Plan: possible acute exacerbation at admission with CO2 retention and increased O2 requirement Continue mucinex, and inhaler appreciate pulmonary consult PE ruled out (6) Diabetes mellitus: Qualifiers: Diabetes mellitus complication status: with hyperglycemia Diabetes mellitus prison insulin use: without prison use Diabetes mellitus type: type 2 Qualified Code(s): E11.65 - Type 2 diabetes mellitus with hyperglycemia Code(s): E11.9 - Type 2 diabetes mellitus without complications Status: Chronic Assessment and Plan: Below 300 Continue sliding scale insulin, Accu-Cheks, and hypoglycemic protocol Monitor A1c 6.3 (7) Generalized weakness: Code(s): R53.1 - Weakness Status: Acute Assessment and Plan: Related to deconditioning, weight gain, and chronic comorbidities PT/OT consulted Patient needs significant PT/OT before returning to home/[place] precautio
[2021-12-05 11:50] LABS: Glucose Point of Care 151 mg/dl (65-105)
--- NOTE | 2021-12-05 12:59 | PM.PNNEP ---
Progress Note: A&P Assessment and Plan (1) SAMARA (acute kidney injury): Code(s): N17.9 - Acute kidney failure, unspecified Status: Acute Assessment and Plan: as noted on admission suspect multifactorial: CHF exacerbation relative hypotension cardiorenal syndrome (and associated chronic prerenal azotemia) severe pulmonary HTN anemia urine electrolytes are pre renal. creatinine has been running higher than baseline but relatively stable Dr. Espinal already had an extensive discussion with her regarding her fluid status and cardiac issues (see his last note from 12/03/21) this is likely a situation where we have to accept a higher creatinine to keep her volume status relatively stable -- unfortunately, this will put her at high risk of needing dialysis in the near future (2) CKD (chronic kidney disease): Code(s): N18.9 - Chronic kidney disease, unspecified Status: Acute Assessment and Plan: creatinine has fluctuated ~ 0.9 - 1.3mg/dl in the last year likely due to HTN, DM, vascular disease, and CHF with necessity of diuretic therapy she may be reaching a new baseline in the low 2s (see #1) (3) Acute exacerbation of CHF (congestive heart failure): Qualifiers: Heart failure type: systolic Qualified Code(s): I50.23 - Acute on chronic systolic (congestive) heart failure Code(s): I50.9 - Heart failure, unspecified Status: Acute Assessment and Plan: Cardiology following Echo shows severe pulmonary hypertension and [id number] tricuspid regurgitation; LV is good except for some grade 1 diastolic dysfunction Chest x-ray and CT do show excess lung water continue fluid restriction on bumex, acetazolamide, spironolactone, and metolazone she still requires potassium supplements as well (4) Anemia: Code(s): D64.9 - Anemia, unspecified Status: Chronic Assessment and Plan: some what of a chronic issue possibly worsened by acute illness and renal dysfunction s/p PRBC transfusion s/p course of zoey on Epogen may need to follow-up with Dr. Hanna to continue this as an outpatient (5) Hypertension: Code(s): I10 - Essential (primary) hypertension Status: Chronic Assessment and Plan: not an issue at this time BP on the soft/relatively low at this time on no antihypertensives (6) Diabetes mellitus: Qualifiers: Diabetes mellitus complication status: with hyperglycemia Diabetes mellitus mcfp insulin use: without sand blaster use Diabetes mellitus type: type 2 Qualified Code(s): E11.65 - Type 2 diabetes mellitus with hyperglycemia Code(s): E11.9 - Type 2 diabetes mellitus without complications Status: Chronic Assessment and Plan: on Accu-Cheks sliding-scale insulin Will continue to follow. Subjective Date/time seen: 12/05/21 12:59 Respiratory status/breathing appears relative stable at this time; still requiring significant oxygen support but no different from yesterday; slept okay overnight and reports no other concerns; no apparent distress voiced; overall, doing much better in comparison to admission. Exam Narrative: General: WD/WN AA female in NAD Heart: normal S1 and S2; no rub Lungs: decreased breath sounds at the bases with a few crackles Abdomen: soft, nontender, nondistended, positive bowel sounds Extremities: no cyanosis or clubbing; 2+ bilateral edema Skin: warm and dry Objective Data Vital Signs Vital Signs: Vital Signs Temp Pulse Resp BP Pulse Ox 12/05/21 12:00 80 12/05/21 08:28 91 12/05/21 08:08 91 12/05/21 08:00 84 91 12/05/21 06:00 36.8 C 84 20 106/45 L 95 12/05/21 04:00 82 12/05/21 00:00 74 12/04/21 22:00 36.7 C 74 20 95/55 L 93 12/04/21 21:27 94 12/04/21 20:00 83 93 12/04/21 16:00 76 12/04/21 14:36 93 Intake/Output Intake/Output:
--- NOTE | 2021-12-05 12:59 | P.PNNP_ITS ---
Progress Note: A&P Assessment and Plan (1) SAMARA (acute kidney injury): Code(s): N17.9 - Acute kidney failure, unspecified Status: Acute Assessment and Plan: * as noted on admission * suspect multifactorial: * CHF exacerbation * relative hypotension * cardiorenal syndrome (and associated chronic prerenal azotemia) * severe pulmonary HTN * anemia * urine electrolytes are pre renal. * creatinine has been running higher than baseline but relatively stable * Dr. Espinal already had an extensive discussion with her regarding her fluid status and cardiac issues (see his last note from 12/03/21) * this is likely a situation where we have to accept a higher creatinine to keep her volume status relatively stable -- unfortunately, this will put her at high risk of needing dialysis in the near future (2) CKD (chronic kidney disease): Code(s): N18.9 - Chronic kidney disease, unspecified Status: Acute Assessment and Plan: * creatinine has fluctuated ~ 0.9 - 1.3mg/dl in the last year * likely due to HTN, DM, vascular disease, and CHF with necessity of diuretic therapy * she may be reaching a new baseline in the low 2s (see #1) (3) Acute exacerbation of CHF (congestive heart failure): Qualifiers: Heart failure type: systolic Qualified Code(s): I50.23 - Acute on chronic systolic (congestive) heart failure Code(s): I50.9 - Heart failure, unspecified Status: Acute Assessment and Plan: * Cardiology following * Echo shows severe pulmonary hypertension and [id number] tricuspid regurgitation; LV is good except for some grade 1 diastolic dysfunction * Chest x-ray and CT do show excess lung water * continue fluid restriction * on bumex, acetazolamide, spironolactone, and metolazone * she still requires potassium supplements as well (4) Anemia: Code(s): D64.9 - Anemia, unspecified Status: Chronic Assessment and Plan: * some what of a chronic issue * possibly worsened by acute illness and renal dysfunction * s/p PRBC transfusion * s/p course of venofer * on Epogen * may need to follow-up with Dr. Hanna to continue this as an outpatient (5) Hypertension: Code(s): I10 - Essential (primary) hypertension Status: Chronic Assessment and Plan: * not an issue at this time * BP on the soft/relatively low at this time * on no antihypertensives (6) Diabetes mellitus: Qualifiers: Diabetes mellitus complication status: with hyperglycemia Diabetes mellitus intermediate manager insulin use: without senior living use Diabetes mellitus type: type 2 Qualified Code(s): E11.65 - Type 2 diabetes mellitus with hyperglycemia Code(s): E11.9 - Type 2 diabetes mellitus without complications Status: Chronic Assessment and Plan: * on Accu-Cheks * sliding-scale insulin Will continue to follow. Subjective Date/time seen: 12/05/21 12:59 Respiratory status/breathing appears relative stable at this time; still requiring significant oxygen support but no different from yesterday; slept okay overnight and reports no other concerns; no apparent distress voiced; overall, doing much better in comparison to admission. Exam Narrative: General: WD/WN AA female in NAD Heart: normal S1 and S2; no rub Lungs: decreased breath sounds at the bases with a few crackles Abdomen: soft, nontender, nondistended, positive bowel sounds Extremities: no cyanosis or clubbing; 2+ bilateral edema Skin: warm and dry
[2021-12-05 16:27] LABS: Glucose Point of Care 139 mg/dl (65-105)
[2021-12-05] MEDS: BUMETANIDE INJ 1 MG/4 ML VIAL IV PUSH (16:44)
[2021-12-05 21:11] LABS: Glucose Point of Care 129 mg/dl (65-105)
[2021-12-06] VITALS (11 sets, daily range): BP systolic 103–118; BP diastolic 52–67; PULSE 71–79; RESP 16–20; TEMP 36.4–36.8; O2SAT 89–98
--- NOTE | 2021-12-06 | ECHO_ITS ---
Patient Info Name: Maura Hill Age: 61 years : 1960 Gender: Female Ht: 68 in Wt: 312 lbs BSA: 2.68 m2 HR: 71 bpm BP: 118 / 52 mmHg Technical Quality: Fair Exam Date: 12/06/2021 3:07 PM Exam Location: [facility] Patient Status: Inpatient Admit Date: 11/20/2021 Staff Ordering Physician: Tong Russo MD Jd Edwards Consultant: Aniket Kruse RDCS, RT Attending Provider: Leonila Luo NP Referring Physician: Karan HERNANDEZ; Exam Type: CA echo limited w bubble study Study Info Indications J96.90 - Respiratory failure, unspecified, unspecified whether with hypoxia or hypercapnia Limited two-dimensional transthoracic echocardiogram is performed with agitated saline. Summary 1. Limited echocardiogram to assess for patent foramen ovale of atrial septal defect. 2. Agitated saline injection without valsalva maneuver did not adequately opacify right side cardiac chambers and no obvious shunt noted. Agitated saline injection with valsalva maneuver opacified right side cardiac chambers with shunt noted with several bubbles entering to left cardiac chambers. This suggests patent foramen ovale. Atrial Septum Suspected patent foramen ovale visualized by agitated saline imaging. Agitated saline injection without valsalva maneuver did not adequately opacify right side cardiac chambers and no obvious shunt noted. Agitated saline injection with valsalva maneuver opacified right side cardiac chambers with shunt noted with several bubbles entering to left cardiac chambers. This suggests patent foramen ovale. Limited echocardiogram to assess for patent foramen ovale of atrial septal defect. Report Signatures
[2021-12-06] MEDS: ALBUTEROL SULFATE (*SP) AEROSOL 1 PUFF INHALATION ×4 (02:44→20:54)
[2021-12-06 06:55] LABS: Hematocrit 28.1 % (37.0-47.0); Mean Corpuscular HGB Conc 28.5 g/dl (32-36); Mean Corpuscular Hemoglobin 22.3 pg (26-34); Mean Corpuscular Volume 78.3 fl (80-100); Mean Platelet Volume 11.3 fl (7.4-10.4); Platelet Count Result 246 k/mm3 (150-375); Red Blood Count 3.59 M/mm3 (4.2-5.4); Red Cell Distribution Width 26.9 % (11.5-14.5); White Blood Count 8.2 K/mm3 (4.5-10.0)
[2021-12-06 07:08] LABS: Alanine Aminotransferase 11 U/L (4-35); Albumin Level 3.8 g/dL (3.5-5.1); Alkaline Phosphatase 131 U/L (38-126); Anion Gap 6 mmol/L (8-16); Aspartate Amino Transferase 52 U/L (14-36); Bilirubin,Total 1.2 mg/dL (0.2-1.3); Blood Urea Nitrogen 44 mg/dL (7-17); Calcium 9.4 mg/dL (8.4-10.2); Carbon Dioxide 38 mmol/L (22-30); Chloride 94 mmol/L (98-107); Estimated CRCL calculation 36 ml/min; Estimated Glomerular Filt Rate 27; Glucose 106 mg/dL (65-110); Potassium 3.7 mmol/L (3.4-5.0); Sodium 138 mmol/L (137-145)
[2021-12-06 07:13] LABS: NT Pro B Type Natriuretic Pept 11000 pg/mL (5-100)
[2021-12-06 08:37] LABS: Glucose Point of Care 107 mg/dl (65-105)
[2021-12-06] MEDS: UMECLIDINIUM/VILANTEROL 62.5-25 MCG ELLIPTA 1 PUFF INHALATION (08:38)
--- NOTE | 2021-12-06 08:45 | PM.IMPN ---
Progress Note: A&P Assessment and Plan (1) Acute and chronic respiratory failure: Code(s): J96.20 - Acute and chronic respiratory failure, unspecified whether with hypoxia or hypercapnia Status: Acute Assessment and Plan: Treat underlying cause Secondary to CHF exacerbation versus COPD/anemia/CRF/deconditioning/obesity on 11/22/21 elevated D.Dimer-3.01 CTA on 11/24/21 showed mild emphysema.. There is a chronic 12 mm nodule in right upper lobe containing fat, consistent with a hamartoma. small pericardial effusion.Small volume of ascites. edema of the intra-abdominal fat and body wall fat. no pulmonary embolus Continue to use BiPAP/CPAP with home settings Pulm consult thank you for your help Chest xray shows Pulm edema/atelectasis/PNA ABG 12/06/21 Shows Respiratory alkalosis with hypoxemia PH 7.457, CO2 48.6, O2 44.9, HCO3 33.6, O2 sat 82.6 Placed back on airvo Trend SPO2 (2) Acute exacerbation of congestive heart failure: Code(s): I50.9 - Heart failure, unspecified Status: Acute Assessment and Plan: Acute diastolic exacerbation of heart failure Continue Bumex 2mg morning and 1 mg evening, due to rising Creatinine, 2.2 today acetazolamide spironolactone and also metolazone 5mg per day. still requiring daily potassium supplements. Dr. Hopkins and Dr. Espinal following and diuresing patient, treating cardiomyopathy/HTN/CHF/ARF/CRF Strict I/O -1185 Daily weights 12/06/2021 157 today 141.7 Check ECHO - showed MV severe calcification, EF 65-70%, moderate TV regurg, severe pulm HTN with paP 69, right atrial pressure elevated. LV has grade 1 diastolic dysfunction. Get bubble study CT scan showed mild pulmonary edema. Enlargement of the central pulmonary arteries consistent with pulmonary arterial hypertension and Tiny pericardial effusion. No pleural effusion. BNP 4280 on 11/19/21, 3690 on 11/21/2021, and 6250 11/28/21. Continue fluid restriction CHF education ordered. patient would benefit from following up at a CHF clinic after discharge and close monitoring by Cut Off Man. Consulted Dr. Russo for breathing (3) Renal failure: Code(s): N19 - Unspecified kidney failure Status: Acute Assessment and Plan: acute on CKD (chronic kidney disease) creatinine baseline 0.9 - 1.3mg/dl today 2.20 likely due to HTN, DM, vascular disease, and CHF with necessity of diuretic therapy Monitor her renal function closely while diuresing Avoid nephrotoxins Appreciate nephrology consult and treating Continue to monitor I&O (4) Chronic anemia: Code(s): D64.9 - Anemia, unspecified Status: Acute Assessment and Plan: CHRONIC Hemoglobin is stable but remains in the mid 7's,8.0 today Continue iron supplementation, switched to IV for 5 bags; Finished Venofer and on Epogen. Also continue PPI as she was noted to have gastritis on EGD in September 2021 Iron supplementation and continues anemia, combined with her significantly increased O2 requirement and soft BPs, 1 unit RBC 11/21/21 transfuse as needed. worsened by acute illness and renal dysfunction need to follow up with Hotel Assistant Manager Dr. Hanna and Book Sewing Machine Operator as an outpatient to continue Epogen doses/anemia tx. (5) Hypertension: Qualifiers: Hypertension type: essential hypertension Qualified Code(s): I10 - Essential (primary) hypertension Code(s): I10 - Essential (primary) hypertension Status: Acute Assessment and Plan: Blood pressure soft Monitor closely while diuresing holding norvasc and losartan at this time, will determine if appropriate on discharge (6) COPD (chronic obstructive pulmonary disease): Qualifiers: COPD type: unspecified COPD Qualified Code(s): J44.9 - Chronic obstructive pulmonary disease, unspecified Code(s): J44.9 - Chronic obstructive pulmonary disease, unspecified Status: Chronic Assessment and Plan: possible acute exace
[2021-12-06] MEDS: POLYSACCHARIDE IRON COMPLEX 150 MG CAPSULE PO ×2 (08:49→17:06)
[2021-12-06] MEDS: EPOETIN ALFA 10,000 UNITS/ML VIAL 10000 UNITS SUB-Q (08:49)
[2021-12-06] MEDS: metOLazone 5 MG TABLET PO (08:49)
[2021-12-06] MEDS: SPIRONOLACTONE 25 MG TABLET PO ×2 (08:49→17:07)
[2021-12-06] MEDS: BUMETANIDE INJ 2.5 MG/10 ML VIAL 2 MG IV PUSH (08:49)
[2021-12-06] MEDS: GABAPENTIN 100 MG CAPSULE PO ×3 (08:50→17:06)
[2021-12-06] MEDS: POTASSIUM CHLORIDE 10 MEQ TABLET.ER PO ×2 (08:50→17:07)
[2021-12-06] MEDS: EZETIMIBE 10 MG TABLET PO (08:50)
[2021-12-06] MEDS: polyethylene glycoL 3350 17 GM POWD.PACK PO (08:50)
[2021-12-06] MEDS: ATORVASTATIN 40 MG TABLET PO (08:50)
[2021-12-06] MEDS: ENOXAPARIN 40 MG/0.4 ML SYRINGE SUB-Q (08:50)
[2021-12-06] MEDS: PANTOPRAZOLE 40 MG TABLET PO ×2 (08:50→17:07)
[2021-12-06] MEDS: acetaZOLAMIDE TAB 250 MG TABLET 500 MG PO ×2 (08:50→17:06)
[2021-12-06] MEDS: guaiFENesin 12 HR 600 MG TABCR 1200 MG PO ×2 (08:50→21:00)
[2021-12-06 09:42] LABS: Alveolar/Arterial O2 Gradient 619.5 mmHg; Base Excess ABG 8.6 mEq/l (+/-2.0); Fractional Inspired Oxygen 100 %; HCO3 ABG 33.6 mEq/l (22.0-26.0); Oxygen Content ABG 10.1 %vol (16.0-22.0); PCO2 ABG 48.6 mmHg (35.0-45.0); PO2 FiO2 Ratio Arterial Blood 0.45 %; Total Hemoglobin 9.5 g/dL (12.0-18.0); pH ABG 7.457 (7.350-7.450)
[2021-12-06 09:44] LABS: Device HIGH FLOW NASAL CANN; Modified Allen's Test Pass; Oxygen Saturation ABG 82.6 % (95.0-100.0); Oxyhemoglobin 75.5 % THb (90.0-100.0); PO2 ABG 44.9 mmHg (80.0-100.0); Site Drawn RIGHT RADIAL
--- NOTE | 2021-12-06 10:42 | PCOTNOTE ---
Per RN, patient back on AirVo - deemed inappropriate to see for OT this date. Walked past patient's room, patient not wearing AirVo. Patient assisted with re-donning AirVo, patient's O2 assessed at approx. 63%. Patient's RN notified.
--- NOTE | 2021-12-06 10:43 | PM.PNPUL ---
Progress Note: A&P Assessment and Plan (1) Acute on chronic respiratory failure with hypoxemia: Code(s): J96.21 - Acute and chronic respiratory failure with hypoxia Status: Resolved Assessment and Plan: Patient with a history of moderate restrictive lung disease with a TLC of 46% predicted and an FEV1 of 61% predicted. Patient also has a decreased DLCO on adjusted for hemoglobin at 24% and a mildly decreased DLCO corrected for alveolar volume at 71%. Patient also has diagnosed obstructive sleep apnea. patient also has mild centrilobular emphysema on her CT scan of the chest. Currently she has acute on chronic hypoxemic respiratory failure with increased oxygen demands. patient has no evidence of hypercarbic respiratory failure with a pH of 7.46/49/45. Patient has been aggressively [place] [address], pedal edema and a chest x-ray consistent with fluid overload. There are no pleural effusions and the patient also had ascites mentioned on her abdominal CT from 11/19/2021. She has been aggressively diuresed by the hospitalist and her admission creatinine was 1.9 and currently it is 2.2. agree with as aggressive diuresis as tolerated by her cardiac and renal systems. Will look for additional etiologies of hypoxemic respiratory failure and will obtain a echo with a bubble study. I will send serologies for interstitial lung disease (MARAH cascade, Anca screen, rheumatoid factor, anti CCP antibody, hypersensitivity pneumonitis, aldolase). Will follow with you. Subjective Date/time seen: 12/06/21 10:43 Interval history: 11/23/21 NEW consult: Maura Hill is a 61 year old female with COPD, O2 use, GUANACO who we follow in the clinic. I was consulted to see her for hypoxemia. She reports increased swelling over several weeks prior to admission despite diuretics. CT abdomen: 11/19/21 likely CHF, ascites small amount, LLL nodule unchanged from 09/08/2019 consistent with hemartoma, enlargedpulmonary arteries, body wall edema. CXT 11/21/21 = IMPRESSION: Cardiomegaly, congestive heart failure and suspected pulmonary edema; Pneumonia is not excluded last office visit 08/16/2021 COPD on oxygen, restrictive lung disease, and GUANACO on BiPAP. prior CHF exacerbation in March 2021, hospitalized Sept for CHF exacerbation as well, acute on chronic respiratory failure. Chest x-ray showed possible pulmonary edema. compliant with her oxygen but she does not have her Oxymizer on at this visit, she instead has her nasal cannula on so her O2 saturation is mildly below recommended. She also reports that she has not been very compliant with her BiPAP over the past few months. Denies cough, chest pain, wheezing. Reports significant shortness of breath with any activity. She is very sedentary at home. 11/23/21: Plan She has chronic hypoxemic respiratory failure on O2 at home, with subacute worsening associated with large amount of peripheral edema and pulmonary edema radiographically despite significant doses of diuretics at home, Lasix 80 mg twice and day and p.r.n. doses. She is needing more O2 as she has pulmonary edema and total body edema due to decompensated cardiac function. She does not have increased sputum. 12/06/20 Reconsulted for hypoxemic respiratory failure. Patient has a restrictive abnormality on 09/15/2020 with an FEV1 of 1.56 L, 61% predicted, TLC of 2.64 L, 46% predicted and a a DLCO on adjusted for hemoglobin 24% predicted and DLCO adjusted for alveolar volume at 71% predicted. At baseline her last home O2 assessment on 07/23/2021 showed 4 L at rest and 8 L with an Oxymizer with ambulation. Currently patient tells me she has been wearing 6 L with rest, ambulation, and bleed in with her BiPAP at night. Today ABG on 12/06 on 15 L high-flow nasal cannula 7.46/ 49/45. She has been aggressively diuresed per the renal service with a BUN 44 and creatinine now of 2.2 with a plan to aggressively diurese so as to min
--- NOTE | 2021-12-06 11:57 | P.PNNP_ITS ---
Progress Note: A&P Assessment and Plan (1) SAMARA (acute kidney injury): Code(s): N17.9 - Acute kidney failure, unspecified Status: Acute Assessment and Plan: * as noted on admission * suspect multifactorial: * CHF exacerbation * relative hypotension * cardiorenal syndrome (and associated chronic prerenal azotemia) * severe pulmonary HTN * anemia * urine electrolytes are pre renal * creatinine has been running higher than baseline but relatively stable * Dr. Espinal already had an extensive discussion with her regarding her fluid status and cardiac issues (see his last note dated 12/03/21) * this is likely a situation where we have to accept a higher creatinine to keep her volume status relatively stable -- unfortunately, this will put her at high risk of needing dialysis in the near future (2) CKD (chronic kidney disease): Code(s): N18.9 - Chronic kidney disease, unspecified Status: Acute Assessment and Plan: * creatinine has fluctuated ~ 0.9 - 1.3mg/dl in the last year * likely due to HTN, DM, vascular disease, and CHF with necessity of diuretic therapy * she may be reaching a new baseline in the low 2s (see #1) (3) Acute exacerbation of CHF (congestive heart failure): Qualifiers: Heart failure type: systolic Qualified Code(s): I50.23 - Acute on chronic systolic (congestive) heart failure Code(s): I50.9 - Heart failure, unspecified Status: Acute Assessment and Plan: * Cardiology following * Echo shows severe pulmonary hypertension and ldti-[id number]-slicoqfk tricuspid regurgitation; LV is good except for some grade 1 diastolic dysfunction * Chest x-ray and CT do show excess lung water * continue fluid restriction * on bumex, acetazolamide, spironolactone, and metolazone * she still requires potassium supplements as well (4) Anemia: Code(s): D64.9 - Anemia, unspecified Status: Chronic Assessment and Plan: * some what of a chronic issue * possibly worsened by acute illness and renal dysfunction * s/p PRBC transfusion * s/p course of venofer * on Epogen * may need to follow-up with Dr. Hanna to continue this as an outpatient (5) Hypertension: Code(s): I10 - Essential (primary) hypertension Status: Chronic Assessment and Plan: * not an issue at this time * BP on the soft/relatively low at this time * on no antihypertensives (6) Diabetes mellitus: Qualifiers: Diabetes mellitus complication status: with hyperglycemia Diabetes mellitus intermediate teacher insulin use: without skilled nursing use Diabetes mellitus type: type 2 Qualified Code(s): E11.65 - Type 2 diabetes mellitus with hyperglycemia Code(s): E11.9 - Type 2 diabetes mellitus without complications Status: Chronic Assessment and Plan: * on Accu-Cheks * sliding-scale insulin Will continue to follow. Subjective Date/time seen: 12/06/21 11:57 Sitting up in chair leaning on table in no apparent distress; respiratory status seems stable but still remains on significant oxygen requirements but denies any worsening shortness of breath; no apparent distress voiced; no issues/events overnight or earlier this AM. Exam Narrative: General: WD/WN AA female in NAD Heart: normal S1 and S2; no rub Lungs: decreased breath sounds at the bases with a few crackles Abdomen: soft, nontender, nondistended, positive bowel sounds Extremities: no cyanosis or clubbing; 2+ bilateral edema Skin: warm and intact Object
--- NOTE | 2021-12-06 11:57 | PM.PNNEP ---
Progress Note: A&P Assessment and Plan (1) SAMARA (acute kidney injury): Code(s): N17.9 - Acute kidney failure, unspecified Status: Acute Assessment and Plan: as noted on admission suspect multifactorial: CHF exacerbation relative hypotension cardiorenal syndrome (and associated chronic prerenal azotemia) severe pulmonary HTN anemia urine electrolytes are pre renal creatinine has been running higher than baseline but relatively stable Dr. Espinal already had an extensive discussion with her regarding her fluid status and cardiac issues (see his last note dated 12/03/21) this is likely a situation where we have to accept a higher creatinine to keep her volume status relatively stable -- unfortunately, this will put her at high risk of needing dialysis in the near future (2) CKD (chronic kidney disease): Code(s): N18.9 - Chronic kidney disease, unspecified Status: Acute Assessment and Plan: creatinine has fluctuated ~ 0.9 - 1.3mg/dl in the last year likely due to HTN, DM, vascular disease, and CHF with necessity of diuretic therapy she may be reaching a new baseline in the low 2s (see #1) (3) Acute exacerbation of CHF (congestive heart failure): Qualifiers: Heart failure type: systolic Qualified Code(s): I50.23 - Acute on chronic systolic (congestive) heart failure Code(s): I50.9 - Heart failure, unspecified Status: Acute Assessment and Plan: Cardiology following Echo shows severe pulmonary hypertension and [id number]-vo-sjwubrys tricuspid regurgitation; LV is good except for some grade 1 diastolic dysfunction Chest x-ray and CT do show excess lung water continue fluid restriction on bumex, acetazolamide, spironolactone, and metolazone she still requires potassium supplements as well (4) Anemia: Code(s): D64.9 - Anemia, unspecified Status: Chronic Assessment and Plan: some what of a chronic issue possibly worsened by acute illness and renal dysfunction s/p PRBC transfusion s/p course of zoey on Epogen may need to follow-up with Dr. Hanna to continue this as an outpatient (5) Hypertension: Code(s): I10 - Essential (primary) hypertension Status: Chronic Assessment and Plan: not an issue at this time BP on the soft/relatively low at this time on no antihypertensives (6) Diabetes mellitus: Qualifiers: Diabetes mellitus complication status: with hyperglycemia Diabetes mellitus residential insulin use: without capacity planner use Diabetes mellitus type: type 2 Qualified Code(s): E11.65 - Type 2 diabetes mellitus with hyperglycemia Code(s): E11.9 - Type 2 diabetes mellitus without complications Status: Chronic Assessment and Plan: on Accu-Cheks sliding-scale insulin Will continue to follow. Subjective Date/time seen: 12/06/21 11:57 Sitting up in chair leaning on table in no apparent distress; respiratory status seems stable but still remains on significant oxygen requirements but denies any worsening shortness of breath; no apparent distress voiced; no issues/events overnight or earlier this AM. Exam Narrative: General: WD/WN AA female in NAD Heart: normal S1 and S2; no rub Lungs: decreased breath sounds at the bases with a few crackles Abdomen: soft, nontender, nondistended, positive bowel sounds Extremities: no cyanosis or clubbing; 2+ bilateral edema Skin: warm and intact Objective Data Vital Signs Vital Signs: Vital Signs Temp Pulse Resp BP Pulse Ox 12/06/21 04:00 73 12/06/21 03:50 36.4 C L 73 16 118/52 L 92 12/06/21 00:00 76 12/05/21 21:02 88 L 12/05/21 20:00 74 92 12/05/21 19:52 36.2 C L 75 18 104/64 91 12/05/21 16:00 88 12/05/21 14:00 36.3 C L 82 14 97/56 L 95 12/05/21 12:00 80 Intake/Output Intake/Output: Intake & Output 12/03/21 12/04/21 12/05/21 12/06/21 2
[2021-12-06] MEDS: SENNA/DOCUSATE SODIUM TABLET 1 TAB PO (12:42)
[2021-12-06 12:48] LABS: Glucose Point of Care 271 mg/dl (65-105)
[2021-12-06 13:33] LABS: Rheumatoid Factor < 8.6 IU/ML (<12)
[2021-12-06 16:26] LABS: Glucose Point of Care 119 mg/dl (65-105)
[2021-12-06] MEDS: BUMETANIDE INJ 1 MG/4 ML VIAL IV PUSH (17:06)
[2021-12-06 20:40] LABS: Glucose Point of Care 143 mg/dl (65-105)
[2021-12-07] VITALS (14 sets, daily range): BP systolic 97–111; BP diastolic 50–60; PULSE 65–84; RESP 18–22; TEMP 36.1–36.4; O2SAT 88–100
[2021-12-07] MEDS: ALBUTEROL SULFATE (*SP) AEROSOL 1 PUFF INHALATION (02:30)
[2021-12-07 07:37] LABS: Basophils Percent Auto 0.4 % (0.2-1.2); Eosinophils Absolute Auto 0.2 K/mm3 (0-0.3); Eosinophils Percent Auto 2.4 % (0-4.4); Hematocrit 28.7 % (37.0-47.0); Hemoglobin 8.1 g/dL (12.0-15.0); Immature Granulocyte Absolute 0.03 K/mm3 (0.00-0.031); Immature Granulocyte Percent A 0.3 % (0-0.5); Immature Platelet Fraction Pct 3.4 % (0.9-11.2); Lymphocytes Absolute Auto 0.86 K/mm3 (0.9-3.2); Lymphocytes Percent Auto 9.5 % (18.3-44.2); Mean Corpuscular HGB Conc 28.2 g/dl (32-36); Mean Corpuscular Hemoglobin 22.3 pg (26-34); Mean Corpuscular Volume 78.8 fl (80-100); Mean Platelet Volume 10.9 fl (7.4-10.4); Monocytes Absolute Auto 0.5 K/mm3 (0.1-0.6); Monocytes Percent Auto 5.3 % (2.6-8.5); Neutrophils Absolute Auto 7.4 K/mm3 (1.3-6.7); Neutrophils Percent Auto 82.1 % (45.5-73.1); Platelet Count Result 264 k/mm3 (150-375); Red Blood Count 3.64 M/mm3 (4.2-5.4); Red Cell Distribution Width 26.7 % (11.5-14.5)
[2021-12-07 07:44] LABS: Alanine Aminotransferase 9 U/L (4-35); Albumin Level 3.6 g/dL (3.5-5.1); Alkaline Phosphatase 142 U/L (38-126); Anion Gap 5 mmol/L (8-16); Aspartate Amino Transferase 41 U/L (14-36); Bilirubin,Total 0.9 mg/dL (0.2-1.3); Blood Urea Nitrogen 41 mg/dL (7-17); Calcium 9.3 mg/dL (8.4-10.2); Carbon Dioxide 39 mmol/L (22-30); Chloride 93 mmol/L (98-107); Estimated CRCL calculation 34 ml/min; Estimated Glomerular Filt Rate 26; Glucose 121 mg/dL (65-110); Magnesium 2.4 mg/dL (1.6-2.3); Potassium 3.1 mmol/L (3.4-5.0); Sodium 137 mmol/L (137-145)
[2021-12-07 07:54] LABS: Hypochromasia 2+ (NORMAL); Platelet Estimate Adequate (Adequate)
[2021-12-07 07:55] LABS: Acanthocytes 1+ (NORMAL); Anisocytosis 2+ (NORMAL); Poikilocytosis 1+ (NORMAL)
[2021-12-07] MEDS: UMECLIDINIUM/VILANTEROL 62.5-25 MCG ELLIPTA 1 PUFF INHALATION (08:18)
[2021-12-07 08:29] LABS: Glucose Point of Care 125 mg/dl (65-105)
--- NOTE | 2021-12-07 09:15 | PM.IMPN ---
Progress Note: A&P Assessment and Plan (1) Pulmonary hypertension: Code(s): I27.20 - Pulmonary hypertension, unspecified Status: Acute Assessment and Plan: Severe pulmonary hypertension Noted to be 69 on ECHO BIpap at night initiated transfer (2) Acute and chronic respiratory failure: Code(s): J96.20 - Acute and chronic respiratory failure, unspecified whether with hypoxia or hypercapnia Status: Acute Assessment and Plan: Treat underlying cause Secondary to CHF exacerbation versus COPD/anemia/CRF/deconditioning/obesity on 11/22/21 elevated D.Dimer-3.01 CTA on 11/24/21 showed mild emphysema.. There is a chronic 12 mm nodule in right upper lobe containing fat, consistent with a hamartoma. small pericardial effusion.Small volume of ascites. edema of the intra-abdominal fat and body wall fat. no pulmonary embolus Continue to use BiPAP/CPAP per pulmonology Pulm consult thank you for your help Chest xray shows Pulm edema/atelectasis/PNA ABG 12/06/21 Shows Respiratory alkalosis with hypoxemia PH 7.457, CO2 48.6, O2 44.9, HCO3 33.6, O2 sat 82.6 Placed back on airvo Trend SPO2 Echo with bubble did show a R to L shunt and severe pulmonary hypertension (3) Acute exacerbation of congestive heart failure: Code(s): I50.9 - Heart failure, unspecified Status: Acute Assessment and Plan: Acute diastolic exacerbation of heart failure Continue Bumex 2mg morning and 1 mg evening, due to rising Creatinine, 2.2 today acetazolamide spironolactone and also metolazone 5mg per day. still requiring daily potassium supplements. Dr. Hopkins and Dr. Espinal following and diuresing patient, treating cardiomyopathy/HTN/CHF/ARF/CRF Strict I/O -1185 Daily weights today 141.5kg Check ECHO - showed MV severe calcification, EF 65-70%, moderate TV regurg, severe pulm HTN with paP 69, right atrial pressure elevated. LV has grade 1 diastolic dysfunction. bubble study showed R to L shunt CT scan showed mild pulmonary edema. Enlargement of the central pulmonary arteries consistent with pulmonary arterial hypertension and Tiny pericardial effusion. No pleural effusion. BNP 4280 on 11/19/21, 3690 on 11/21/2021, and 6250 11/28/21. Continue fluid restriction CHF education ordered. patient would benefit from following up at a CHF clinic after discharge and close monitoring by Diamond Sorter. Consulted Dr. Russo for breathing (4) Renal failure: Code(s): N19 - Unspecified kidney failure Status: Acute Assessment and Plan: acute on CKD (chronic kidney disease) creatinine baseline 0.9 - 1.3mg/dl today 2.20 likely due to HTN, DM, vascular disease, and CHF with necessity of diuretic therapy Monitor her renal function closely while diuresing Avoid nephrotoxins Appreciate nephrology consult and treating Continue to monitor I&O (5) Chronic anemia: Code(s): D64.9 - Anemia, unspecified Status: Acute Assessment and Plan: CHRONIC Hemoglobin is stable but remains in the mid 7's, 8.1 today Continue iron supplementation, switched to IV for 5 bags; Finished Venofer and on Epogen. Also continue PPI as she was noted to have gastritis on EGD in September 2021 Iron supplementation and continues anemia, combined with her significantly increased O2 requirement and soft BPs, 1 unit RBC 11/21/21 transfuse as needed. worsened by acute illness and renal dysfunction need to follow up with [employer] Dr. Hanna and Homogen[employer] Operator as an outpatient to continue Epogen doses/anemia tx. (6) Hypertension: Qualifiers: Hypertension type: essential hypertension Qualified Code(s): I10 - Essential (primary) hypertension Code(s): I10 - Essential (primary) hypertension Status: Acute Assessment and Plan: Blood pressure soft Monitor closely while diuresing holding norvasc and losartan at this time, will determine if appropriate on discharge (7) COPD (chr
[2021-12-07] MEDS: POLYSACCHARIDE IRON COMPLEX 150 MG CAPSULE PO ×2 (09:19→17:06)
[2021-12-07] MEDS: guaiFENesin 12 HR 600 MG TABCR 1200 MG PO ×2 (09:19→21:25)
[2021-12-07] MEDS: ATORVASTATIN 40 MG TABLET PO (09:20)
[2021-12-07] MEDS: EZETIMIBE 10 MG TABLET PO (09:20)
[2021-12-07] MEDS: acetaZOLAMIDE TAB 250 MG TABLET 500 MG PO ×2 (09:20→17:06)
[2021-12-07] MEDS: SENNA/DOCUSATE SODIUM TABLET 1 TAB PO (09:20)
[2021-12-07] MEDS: GABAPENTIN 100 MG CAPSULE PO ×3 (09:20→17:07)
[2021-12-07] MEDS: PANTOPRAZOLE 40 MG TABLET PO ×2 (09:20→17:06)
[2021-12-07] MEDS: SPIRONOLACTONE 25 MG TABLET PO ×2 (09:20→17:07)
[2021-12-07] MEDS: POTASSIUM CHLORIDE 10 MEQ TABLET.ER PO ×2 (09:21→17:06)
[2021-12-07] MEDS: ENOXAPARIN 40 MG/0.4 ML SYRINGE SUB-Q (09:21)
[2021-12-07] MEDS: metOLazone 5 MG TABLET PO (09:22)
[2021-12-07] MEDS: BUMETANIDE INJ 2.5 MG/10 ML VIAL 2 MG IV PUSH (09:22)
--- NOTE | 2021-12-07 09:36 | PM.PNPUL ---
Progress Note: A&P Assessment and Plan (1) Acute on chronic respiratory failure with hypoxemia: Code(s): J96.21 - Acute and chronic respiratory failure with hypoxia Status: Resolved Assessment and Plan: 12/06 Patient with a history of moderate restrictive lung disease with a TLC of 46% predicted and an FEV1 of 61% predicted. Patient also has a decreased DLCO on adjusted for hemoglobin at 24% and a mildly decreased DLCO corrected for alveolar volume at 71%. Patient also has diagnosed obstructive sleep apnea. patient also has mild centrilobular emphysema on her CT scan of the chest. Currently she has acute on chronic hypoxemic respiratory failure with increased oxygen demands. patient has no evidence of hypercarbic respiratory failure with a pH of 7.46/49/45. Patient has been aggressively di[place] [address], pedal edema and a chest x-ray consistent with fluid overload. There are no pleural effusions and the patient also had ascites mentioned on her abdominal CT from 11/19/2021. She has been aggressively diuresed by the hospitalist and her admission creatinine was 1.9 and currently it is 2.2. agree with as aggressive diuresis as tolerated by her cardiac and renal systems. Will look for additional etiologies of hypoxemic respiratory failure and will obtain a echo with a bubble study. I will send serologies for interstitial lung disease (MARAH cascade, Anca screen, rheumatoid factor, anti CCP antibody, hypersensitivity pneumonitis, aldolase). 12/07 Patient wore hospital BiPAP last night 10/05 with 60% FiO2 and her sats were 100% when I enter the room. I discontinued the BiPAP and placed her on airflow 40 L and 60% FiO2 and her saturations were 90-91%. Patient has a bubble study on 12/06/21 demonstrating a PFO. Patient has significant pulmonary hypertension with PASP of 69 on echocardiogram on 11/20/21. regarding the etiology of her hypoxemic respiratory failure I am concerned that her pulmonary hypertension and PFO are the major contributor. She may have fluid overload but she has been diuresed and now weighs 141.5 kg from an Admission weight on 11/19/21 is 161.1 kg and weight on 12/06/2021 is 141.7. When she left the hospital on 10/07/2021 she weighed 139.5 kilos (required 5 L rest and 6 with activity). When she left the hospital on 07/14/2021 she weighed 137 kilos (required 4 L rest and 8 oximizer). she does have mild centrilobular emphysema on her CT scan but she has no evidence of a current COPD exacerbation or pneumonia and has no wheezing on Anoro Ellipta. she does have untreated obstructive sleep apnea and she is noncompliant at home with her BiPAP. However her pulmonary hypertension is out of proportion to untreated obstructive sleep apnea. She did tolerate CPAP 10/05 last night and we will continue this in the hospital. Regarding the possibility of interstitial lung disease there is no CT evidence of interstitial lung disease dating back to 09/08/2019. Serologies are pending. Rheumatoid factor is negative. In my opinion patient should be transferred to [facility] to be evaluated by the pulmonary hypertension team for possible right and left heart catheterization to verify pulmonary hypertension, assess her PFO and optimize treatments in order to treat her severe hypoxemic respiratory failure. I discussed this with the patient and she is in agreement. I discussed this with Can valencia who will initiate this transfer. Will follow with you. Subjective Date/time seen: 12/07/21 09:36 Interval history: 11/23/21 NEW consult: Maura Hill is a 61 year old female with COPD, O2 use, GUANACO who we follow in the clinic. I was consulted to see her for hypoxemia. She reports increased swelling over several weeks prior to admission despite diuretics. CT abdomen: 11/19/21 likely CHF, ascites small amount, LLL nodule unchanged from 09/08/2019 consistent wi
--- NOTE | 2021-12-07 10:26 | P.PNNP_ITS ---
Progress Note: A&P Assessment and Plan (1) SAMARA (acute kidney injury): Code(s): N17.9 - Acute kidney failure, unspecified Status: Acute Assessment and Plan: * as noted on admission * suspect multifactorial: * CHF exacerbation * relative hypotension * cardiorenal syndrome (and associated chronic prerenal azotemia) * severe pulmonary HTN * anemia * urine electrolytes are pre renal * creatinine has been running higher than baseline but relatively stable * Dr. Espinal already had an extensive discussion with her regarding her fluid status and cardiac issues (see his last note dated 12/03/21) * this is likely a situation where we have to accept a higher creatinine to keep her volume status relatively stable -- unfortunately, this will put her at high risk of needing dialysis in the near future (2) CKD (chronic kidney disease): Code(s): N18.9 - Chronic kidney disease, unspecified Status: Acute Assessment and Plan: * creatinine has fluctuated ~ 0.9 - 1.3mg/dl in the last year * likely due to HTN, DM, vascular disease, and CHF with necessity of diuretic therapy * she may be reaching a new baseline in the low 2s (see #1) (3) Acute and chronic respiratory failure: Code(s): J96.20 - Acute and chronic respiratory failure, unspecified whether with hypoxia or hypercapnia Status: Acute Assessment and Plan: * likely due to her pulmonary HTN possibly complicated by her PFO along with emphysema and untreated GUANACO * fluid overload may have also been a contributing factor but she has been aggressively diuresis since admission and remains in negative fluid balance to date * Pulmonary following with recommendations noted (4) Acute exacerbation of CHF (congestive heart failure): Qualifiers: Heart failure type: systolic Qualified Code(s): I50.23 - Acute on chronic systolic (congestive) heart failure Code(s): I50.9 - Heart failure, unspecified Status: Acute Assessment and Plan: * Cardiology following * echo shows severe pulmonary hypertension and [id number] tricuspid regurgitation; LV is good except for some grade 1 diastolic dysfunction * chest x-ray and CT do show excess lung water * continue fluid restriction * on bumex, acetazolamide, spironolactone, and metolazone * she still requires potassium supplements as well (5) Anemia: Code(s): D64.9 - Anemia, unspecified Status: Chronic Assessment and Plan: * some what of a chronic issue * possibly worsened by acute illness and renal dysfunction * s/p PRBC transfusion * s/p course of venofer * on Epogen * may need to follow-up with Dr. Hanna to continue this as an outpatient (6) Hypertension: Code(s): I10 - Essential (primary) hypertension Status: Chronic Assessment and Plan: * not an issue at this time * BP on the soft/relatively low at this time * on no antihypertensives (7) Diabetes mellitus: Qualifiers: Diabetes mellitus complication status: with hyperglycemia Diabetes mellitus residential insulin use: without remote computer terminal operator use Diabetes mellitus type: type 2 Qualified Code(s): E11.65 - Type 2 diabetes mellitus with hyperglycemia Code(s): E11.9 - Type 2 diabetes mellitus without complications Status: Chronic Assessment and Plan: * on Accu-Cheks * sliding-scale insulin Will continue to follow. Subjective Date/time seen: 12/07/21 10:26 Patient anxious for discharge but she is still requiring significant oxygen shahid
--- NOTE | 2021-12-07 10:26 | PM.PNNEP ---
Progress Note: A&P Assessment and Plan (1) SAMARA (acute kidney injury): Code(s): N17.9 - Acute kidney failure, unspecified Status: Acute Assessment and Plan: as noted on admission suspect multifactorial: CHF exacerbation relative hypotension cardiorenal syndrome (and associated chronic prerenal azotemia) severe pulmonary HTN anemia urine electrolytes are pre renal creatinine has been running higher than baseline but relatively stable Dr. Espinal already had an extensive discussion with her regarding her fluid status and cardiac issues (see his last note dated 12/03/21) this is likely a situation where we have to accept a higher creatinine to keep her volume status relatively stable -- unfortunately, this will put her at high risk of needing dialysis in the near future (2) CKD (chronic kidney disease): Code(s): N18.9 - Chronic kidney disease, unspecified Status: Acute Assessment and Plan: creatinine has fluctuated ~ 0.9 - 1.3mg/dl in the last year likely due to HTN, DM, vascular disease, and CHF with necessity of diuretic therapy she may be reaching a new baseline in the low 2s (see #1) (3) Acute and chronic respiratory failure: Code(s): J96.20 - Acute and chronic respiratory failure, unspecified whether with hypoxia or hypercapnia Status: Acute Assessment and Plan: likely due to her pulmonary HTN possibly complicated by her PFO along with emphysema and untreated GUANACO fluid overload may have also been a contributing factor but she has been aggressively diuresis since admission and remains in negative fluid balance to date Pulmonary following with recommendations noted (4) Acute exacerbation of CHF (congestive heart failure): Qualifiers: Heart failure type: systolic Qualified Code(s): I50.23 - Acute on chronic systolic (congestive) heart failure Code(s): I50.9 - Heart failure, unspecified Status: Acute Assessment and Plan: Cardiology following echo shows severe pulmonary hypertension and [id number] tricuspid regurgitation; LV is good except for some grade 1 diastolic dysfunction chest x-ray and CT do show excess lung water continue fluid restriction on bumex, acetazolamide, spironolactone, and metolazone she still requires potassium supplements as well (5) Anemia: Code(s): D64.9 - Anemia, unspecified Status: Chronic Assessment and Plan: some what of a chronic issue possibly worsened by acute illness and renal dysfunction s/p PRBC transfusion s/p course of zoey on Epogen may need to follow-up with Dr. Hanna to continue this as an outpatient (6) Hypertension: Code(s): I10 - Essential (primary) hypertension Status: Chronic Assessment and Plan: not an issue at this time BP on the soft/relatively low at this time on no antihypertensives (7) Diabetes mellitus: Qualifiers: Diabetes mellitus complication status: with hyperglycemia Diabetes mellitus ferry terminal supervisor insulin use: without ferry terminal supervisor use Diabetes mellitus type: type 2 Qualified Code(s): E11.65 - Type 2 diabetes mellitus with hyperglycemia Code(s): E11.9 - Type 2 diabetes mellitus without complications Status: Chronic Assessment and Plan: on Accu-Cheks sliding-scale insulin Will continue to follow. Subjective Date/time seen: 12/07/21 10:26 Patient anxious for discharge but she is still requiring significant oxygen support but denies shortness of breath or any worsening breathing/respiratory issues; no new issues/events overnight or earlier this AM; feels reasonably well and in no apparent distress. Exam Narrative: General: WD/WN AA female in NAD Heart: normal S1 and S2; no rub Lungs: decreased breath sounds at the bases with a few crackles Abdomen: soft, nontender, nondistended, positive bowel sounds Extremities: no cyanosis or clubbing; 2+ bilateral
[2021-12-07 12:03] LABS: Glucose Point of Care 231 mg/dl (65-105)
[2021-12-07] MEDS: INSULIN ASPART (*BKC) 100 UNITS/ML SUB-Q (12:04)
[2021-12-07] MEDS: POTASSIUM CHLORIDE 20 MEQ TABLET 40 MEQ PO (14:16)
[2021-12-07 16:28] LABS: Glucose Point of Care 120 mg/dl (65-105)
[2021-12-07] MEDS: BUMETANIDE INJ 1 MG/4 ML VIAL IV PUSH (17:06)
[2021-12-07 21:53] LABS: Glucose Point of Care 153 mg/dl (65-105)
[2021-12-08] VITALS (14 sets, daily range): BP systolic 98–116; BP diastolic 60–71; PULSE 70–88; RESP 12–22; TEMP 36.2–36.7; O2SAT 87–98
[2021-12-08 06:41] LABS: Basophils Percent Auto 0.4 % (0.2-1.2); Eosinophils Absolute Auto 0.2 K/mm3 (0-0.3); Eosinophils Percent Auto 2.6 % (0-4.4); Hematocrit 29.2 % (37.0-47.0); Hemoglobin 8.2 g/dL (12.0-15.0); Immature Granulocyte Absolute 0.03 K/mm3 (0.00-0.031); Immature Granulocyte Percent A 0.4 % (0-0.5); Immature Platelet Fraction Pct 3.3 % (0.9-11.2); Lymphocytes Absolute Auto 0.85 K/mm3 (0.9-3.2); Lymphocytes Percent Auto 10.5 % (18.3-44.2); Mean Corpuscular HGB Conc 28.1 g/dl (32-36); Mean Corpuscular Hemoglobin 22.5 pg (26-34); Mean Corpuscular Volume 80.2 fl (80-100); Monocytes Absolute Auto 0.4 K/mm3 (0.1-0.6); Monocytes Percent Auto 4.5 % (2.6-8.5); Neutrophils Absolute Auto 6.6 K/mm3 (1.3-6.7); Neutrophils Percent Auto 81.6 % (45.5-73.1); Platelet Count Result 280 k/mm3 (150-375); Red Blood Count 3.64 M/mm3 (4.2-5.4); Red Cell Distribution Width 27.1 % (11.5-14.5); White Blood Count 8.1 K/mm3 (4.5-10.0)
[2021-12-08 06:56] LABS: Alanine Aminotransferase 8 U/L (4-35); Albumin Level 3.6 g/dL (3.5-5.1); Alkaline Phosphatase 132 U/L (38-126); Anion Gap 6 mmol/L (8-16); Aspartate Amino Transferase 46 U/L (14-36); Bilirubin,Total 1.3 mg/dL (0.2-1.3); Blood Urea Nitrogen 41 mg/dL (7-17); Calcium 9.1 mg/dL (8.4-10.2); Carbon Dioxide 37 mmol/L (22-30); Chloride 95 mmol/L (98-107); Estimated CRCL calculation 37 ml/min; Estimated Glomerular Filt Rate 29; Glucose 120 mg/dL (65-110); Magnesium 2.4 mg/dL (1.6-2.3); Potassium 3.9 mmol/L (3.4-5.0); Sodium 138 mmol/L (137-145)
[2021-12-08 07:36] LABS: Acanthocytes 1+ (NORMAL); Hypochromasia 1+ (NORMAL); Platelet Estimate Adequate (Adequate)
--- NOTE | 2021-12-08 07:55 | PM.PNCARD ---
Progress Note: A&P Assessment and Plan (1) Acute exacerbation of congestive heart failure: Code(s): I50.9 - Heart failure, unspecified Status: Acute Assessment and Plan: Acute on chronic mild diastolic heart failure. No systolic dysfunction or systolic heart failure and no valvular heart disease. She is third spacing in lungs, abdomen, and legs and low intravascular volume primarily due to pulmonary hypertension and possible cirrhosis of liver. Volume overload due to a combination of acute on chronic mild diastolic heart failure, worsening CKD due to cardiorenal syndrome, severe pulmonary hypertension, high output failure from anemia and possible cirrhosis of liver. Difficult to keep euvolemic due to cardiorenal syndrome. On Bumetanide 2 mg IV BID and Metolazone 5 mg daily. Spironolactone 25 mg BID added by nephrology. She is improving clinically with less sob and edema of legs. If this does not work then consider lasix drip or renal dose dopamine to enhance diuresis. Wean oxygen off as tolerated. Agree with fluid restriction up to 1.5 liters a day, which is giving her a significant negative fluid balance. Monitor electrolytes and replete. Monitor kidney function. Monitor BP. Will sign off. Please call with any questions. (2) CKD (chronic kidney disease): Code(s): N18.9 - Chronic kidney disease, unspecified Status: Acute Assessment and Plan: Monitor renal function and electrolytes closely and replace as needed. Nephrology following. (3) Chronic anemia: Code(s): D64.9 - Anemia, unspecified Status: Acute Assessment and Plan: Microcytic anemia suggests blood loss or iron deficiency anemia. Workup and manage anemia. Received 1 unit PRBC transfusion. (4) Chronic obstructive pulmonary disease: Code(s): J44.9 - Chronic obstructive pulmonary disease, unspecified Status: Acute (5) Pulmonary hypertension: Code(s): I27.20 - Pulmonary hypertension, unspecified Status: Acute Assessment and Plan: Probably due to a combination of GUANACO and COPD, and diastolic dysfunction. Limited echo on 12/07/21 shows right to left heart shunt suggestive of PFO. Agree with Dr. Russo to transfer patient for pulm hypertension assessment/management at [facility] for needed right heart cath with vasodilators, which we do not do here. (6) Obstructive sleep apnea: Code(s): G47.33 - Obstructive sleep apnea (adult) (pediatric) Status: Acute Subjective Date/time seen: 12/08/21 07:55 Appears somewhat confused. No chest pain or sob. Exam Const: General: cooperative, healthy appearing and comfortable Nutritional Appearance: obese Resp: Auscultation: no crackles, no rales, no rhonchi, wheezes and diminished lung sounds Cardio: Jugular venous distension: no JVD Rate: regular rate Rhythm: regular rhythm Heart sounds: no murmurs GI: GI Palp: No abdominal tenderness and Yes Soft to palpation Neuro: General: oriented to person, oriented to place and oriented to time Extrem: Right lower extremity: edema Left lower extremity: edema Other: Trace edema of both legs Objective Data Vital Signs Vital Signs: Vital Signs - 24 hr 12/07/21 08:00 12/07/21 12:00 12/07/21 14:27 Temperature 97.1 F L Pulse Rate 72 75 75 Respiratory Rate 22 H Blood Pressure 97/50 L Pulse Oximetry 91 88 L 12/07/21 14:31 12/07/21 16:00 12/07/21 20:00 Temperature Pulse Rate 75 84 79 Respiratory Rate Blood Pressure Pulse Oximetry 92 92 12/07/21 21:26 12/07/21 22:00 12/08/21 00:00 Temperature 97.0 F L Pulse Rate 78 80 74 Respiratory Rate 18 21 H Blood Pressure 103/54 L Pulse Oximetry 100 93 12/08/21 04:00 12/08/21 05:54 Temperature 97.2 F L Pulse Rate 78 77 Respiratory Rate 20 Blood Pressure 98/64 L Pulse Oximetry 91 Intake/Output Intake/Output: Intake & Output 12/05/21 12/06/21 12/07/21 12/08/21 23:59 23:59 23:59 23:59 Intake Total 1300
[2021-12-08] MEDS: BUMETANIDE INJ 2.5 MG/10 ML VIAL 2 MG IV PUSH (08:09)
[2021-12-08] MEDS: PANTOPRAZOLE 40 MG TABLET PO ×2 (08:26→16:52)
[2021-12-08] MEDS: POTASSIUM CHLORIDE 10 MEQ TABLET.ER PO ×2 (08:26→16:53)
[2021-12-08] MEDS: metOLazone 5 MG TABLET PO (08:26)
[2021-12-08] MEDS: GABAPENTIN 100 MG CAPSULE PO ×3 (08:26→16:50)
[2021-12-08] MEDS: ATORVASTATIN 40 MG TABLET PO (08:26)
[2021-12-08] MEDS: EZETIMIBE 10 MG TABLET PO (08:27)
[2021-12-08] MEDS: guaiFENesin 12 HR 600 MG TABCR 1200 MG PO ×2 (08:27→21:01)
[2021-12-08] MEDS: acetaZOLAMIDE TAB 250 MG TABLET 500 MG PO ×2 (08:27→16:50)
[2021-12-08] MEDS: SENNA/DOCUSATE SODIUM TABLET 1 TAB PO (08:27)
[2021-12-08] MEDS: SPIRONOLACTONE 25 MG TABLET PO ×2 (08:28→16:53)
[2021-12-08] MEDS: ENOXAPARIN 40 MG/0.4 ML SYRINGE SUB-Q (08:28)
[2021-12-08] MEDS: EPOETIN ALFA 10,000 UNITS/ML VIAL 10000 UNITS SUB-Q (08:30)
[2021-12-08] MEDS: POLYSACCHARIDE IRON COMPLEX 150 MG CAPSULE PO ×2 (08:32→16:52)
[2021-12-08 08:36] LABS: Glucose Point of Care 93 mg/dl (65-105)
--- NOTE | 2021-12-08 09:02 | PM.PNPUL ---
Progress Note: A&P Assessment and Plan (1) Acute on chronic respiratory failure with hypoxemia: Code(s): J96.21 - Acute and chronic respiratory failure with hypoxia Status: Resolved Assessment and Plan: 12/06 Patient with a history of moderate restrictive lung disease with a TLC of 46% predicted and an FEV1 of 61% predicted. Patient also has a decreased DLCO on adjusted for hemoglobin at 24% and a mildly decreased DLCO corrected for alveolar volume at 71%. Patient also has diagnosed obstructive sleep apnea. patient also has mild centrilobular emphysema on her CT scan of the chest. Currently she has acute on chronic hypoxemic respiratory failure with increased oxygen demands. patient has no evidence of hypercarbic respiratory failure with a pH of 7.46/49/45. Patient has been aggressively [place] [address], pedal edema and a chest x-ray consistent with fluid overload. There are no pleural effusions and the patient also had ascites mentioned on her abdominal CT from 11/19/2021. She has been aggressively diuresed by the hospitalist and her admission creatinine was 1.9 and currently it is 2.2. agree with as aggressive diuresis as tolerated by her cardiac and renal systems. Will look for additional etiologies of hypoxemic respiratory failure and will obtain a echo with a bubble study. I will send serologies for interstitial lung disease (MARAH cascade, Anca screen, rheumatoid factor, anti CCP antibody, hypersensitivity pneumonitis, aldolase). 12/07 Patient wore hospital BiPAP last night 10/05 with 60% FiO2 and her sats were 100% when I enter the room. I discontinued the BiPAP and placed her on airflow 40 L and 60% FiO2 and her saturations were 90-91%. Patient has a bubble study on 12/06/21 demonstrating a PFO. Patient has significant pulmonary hypertension with PASP of 69 on echocardiogram on 11/20/21. regarding the etiology of her hypoxemic respiratory failure I am concerned that her pulmonary hypertension and PFO are the major contributor. She may have fluid overload but she has been diuresed and now weighs 141.5 kg from an Admission weight on 11/19/21 is 161.1 kg and weight on 12/06/2021 is 141.7. When she left the hospital on 10/07/2021 she weighed 139.5 kilos (required 5 L rest and 6 with activity). When she left the hospital on 07/14/2021 she weighed 137 kilos (required 4 L rest and 8 oximizer). she does have mild centrilobular emphysema on her CT scan but she has no evidence of a current COPD exacerbation or pneumonia and has no wheezing on Anoro Ellipta. she does have untreated obstructive sleep apnea and she is noncompliant at home with her BiPAP. However her pulmonary hypertension is out of proportion to untreated obstructive sleep apnea. She did tolerate CPAP 10/05 last night and we will continue this in the hospital. Regarding the possibility of interstitial lung disease there is no CT evidence of interstitial lung disease dating back to 09/08/2019. Serologies are pending. Rheumatoid factor is negative. Given her severe hypoxemia, in my opinion patient should be transferred to [facility] to be evaluated by the pulmonary hypertension team for possible right and left heart catheterization to verify pulmonary hypertension, assess her PFO and optimize treatments in order to treat her severe hypoxemic respiratory failure. I discussed this with the patient and she is in agreement. I discussed this with Can Aguilar who will initiate this transfer. 12/08 Patient currently on Airvo 40 L and 55% FiO2 with saturations 90%. Patient was charted as using her BiPAP at 10:00 p.m. and then at 1:21 a.m. it was listed as standby. When I asked the patient if she wore her BiPAP last night she said no because nobody put it on her. Creatinine is 2.1. Patient diuresed 3 L yesterday. Cumulative diuresis is 15.6 L since admission. Weight is 138.3. patient must wear h
--- NOTE | 2021-12-08 10:00 | PM.IMPN ---
Progress Note: A&P Assessment and Plan (1) Pulmonary hypertension: Code(s): I27.20 - Pulmonary hypertension, unspecified Status: Acute Assessment and Plan: Severe pulmonary hypertension Noted to be 69 on ECHO BIpap at night initiated transfer (2) Acute and chronic respiratory failure: Code(s): J96.20 - Acute and chronic respiratory failure, unspecified whether with hypoxia or hypercapnia Status: Acute Assessment and Plan: Treat underlying cause Secondary to CHF exacerbation versus COPD/anemia/CRF/deconditioning/obesity on 11/22/21 elevated D.Dimer-3.01 CTA on 11/24/21 showed mild emphysema.. There is a chronic 12 mm nodule in right upper lobe containing fat, consistent with a hamartoma. small pericardial effusion.Small volume of ascites. edema of the intra-abdominal fat and body wall fat. no pulmonary embolus Continue to use BiPAP/CPAP per pulmonology Pulm consult thank you for your help Chest xray shows Pulm edema/atelectasis/PNA ABG 12/06/21 Shows Respiratory alkalosis with hypoxemia PH 7.457, CO2 48.6, O2 44.9, HCO3 33.6, O2 sat 82.6 Placed back on airvo Trend SPO2 Echo with bubble did show a R to L shunt and severe pulmonary hypertension (3) Acute exacerbation of congestive heart failure: Code(s): I50.9 - Heart failure, unspecified Status: Acute Assessment and Plan: Acute diastolic exacerbation of heart failure Continue Bumex 2mg morning and 1 mg evening, due to rising Creatinine, 2.2 today acetazolamide spironolactone and also metolazone 5mg per day. still requiring daily potassium supplements. Dr. Hopkins and Dr. Espinal following and diuresing patient, treating cardiomyopathy/HTN/CHF/ARF/CRF Strict I/O -1185 Daily weights today 138.3 kg Check ECHO - showed MV severe calcification, EF 65-70%, moderate TV regurg, severe pulm HTN with paP 69, right atrial pressure elevated. LV has grade 1 diastolic dysfunction. bubble study showed R to L shunt CT scan showed mild pulmonary edema. Enlargement of the central pulmonary arteries consistent with pulmonary arterial hypertension and Tiny pericardial effusion. No pleural effusion. BNP 4280 on 11/19/21, 3690 on 11/21/2021, and 6250 11/28/21. Continue fluid restriction CHF education ordered. patient would benefit from following up at a CHF clinic after discharge and close monitoring by Tele Tech. Consulted Dr. Russo for breathing (4) Renal failure: Code(s): N19 - Unspecified kidney failure Status: Acute Assessment and Plan: acute on CKD (chronic kidney disease) creatinine baseline 0.9 - 1.3mg/dl today 2.10 likely due to HTN, DM, vascular disease, and CHF with necessity of diuretic therapy Monitor her renal function closely while diuresing Avoid nephrotoxins Appreciate nephrology consult and treating Continue to monitor I&O (5) Chronic anemia: Code(s): D64.9 - Anemia, unspecified Status: Acute Assessment and Plan: CHRONIC Hemoglobin is stable but remains in the mid 7's, 8.2 today Continue iron supplementation, switched to IV for 5 bags; Finished Venofer and on Epogen. Also continue PPI as she was noted to have gastritis on EGD in September 2021 Iron supplementation and continues anemia, combined with her significantly increased O2 requirement and soft BPs, 1 unit RBC 11/21/21 transfuse as needed. worsened by acute illness and renal dysfunction need to follow up with Commercial Loan Administrator Dr. Hanna and Crabber as an outpatient to continue Epogen doses/anemia tx. (6) Hypertension: Qualifiers: Hypertension type: essential hypertension Qualified Code(s): I10 - Essential (primary) hypertension Code(s): I10 - Essential (primary) hypertension Status: Acute Assessment and Plan: Current BP 100/63 Blood pressure soft Monitor closely while diuresing holding norvasc and losartan at this time, will determine if appropriate on discharg
[2021-12-08] MEDS: UMECLIDINIUM/VILANTEROL 62.5-25 MCG ELLIPTA 1 PUFF INHALATION (10:18)
[2021-12-08 12:15] LABS: Glucose Point of Care 111 mg/dl (65-105)
--- NOTE | 2021-12-08 12:36 | P.PNNP_ITS ---
Progress Note: A&P Assessment and Plan (1) SAMARA (acute kidney injury): Code(s): N17.9 - Acute kidney failure, unspecified Status: Acute Assessment and Plan: * as noted on admission * suspect multifactorial: * CHF exacerbation * relative hypotension * cardiorenal syndrome (and associated chronic prerenal azotemia) * severe pulmonary HTN * anemia * urine electrolytes are pre renal * creatinine has been running higher than baseline but relatively stable * Dr. Espinal already had an extensive discussion with her regarding her fluid status and cardiac issues (see his last note dated 12/03/21) * this is likely a situation where we have to accept a higher creatinine to keep her volume status relatively stable -- unfortunately, this will put her at high risk of needing dialysis in the near future (2) CKD (chronic kidney disease): Code(s): N18.9 - Chronic kidney disease, unspecified Status: Acute Assessment and Plan: * creatinine has fluctuated ~ 0.9 - 1.3mg/dl in the last year * likely due to HTN, DM, vascular disease, and CHF with necessity of diuretic therapy * she may be reaching a new baseline in the low 2s (see #1) (3) Acute and chronic respiratory failure: Code(s): J96.20 - Acute and chronic respiratory failure, unspecified whether with hypoxia or hypercapnia Status: Acute Assessment and Plan: * likely due to her pulmonary HTN possibly complicated by her PFO along with emphysema and untreated GUANACO * fluid overload may have also been a contributing factor but she has been aggressively diuresis since admission and remains in negative fluid balance to date * Pulmonary following with recommendations noted (4) Acute exacerbation of CHF (congestive heart failure): Qualifiers: Heart failure type: systolic Qualified Code(s): I50.23 - Acute on chronic systolic (congestive) heart failure Code(s): I50.9 - Heart failure, unspecified Status: Acute Assessment and Plan: * Cardiology following * echo shows severe pulmonary hypertension and [id number] tricuspid regurgitation; LV is good except for some grade 1 diastolic dysfunction * chest x-ray and CT do show excess lung water * continue fluid restriction * on bumex, acetazolamide, spironolactone, and metolazone * she still requires potassium supplements as well (5) Anemia: Code(s): D64.9 - Anemia, unspecified Status: Chronic Assessment and Plan: * some what of a chronic issue * possibly worsened by acute illness and renal dysfunction * s/p PRBC transfusion * s/p course of venofer * on Epogen * may need to follow-up with Dr. Hanna to continue this as an outpatient (6) Hypertension: Code(s): I10 - Essential (primary) hypertension Status: Chronic Assessment and Plan: * not an issue at this time * BP on the soft/relatively low at this time * on no antihypertensives (7) Diabetes mellitus: Qualifiers: Diabetes mellitus type: type 2 Diabetes mellitus fdc insulin use: without fdc use Diabetes mellitus complication status: with hyperglycemia Qualified Code(s): E11.65 - Type 2 diabetes mellitus with hyperglycemia Code(s): E11.9 - Type 2 diabetes mellitus without complications Status: Chronic Assessment and Plan: * on Accu-Cheks * sliding-scale insulin Will continue to follow. Subjective Date/time seen: 12/08/21 12:36 Despite ongoing high oxygen needs, she otherwise feels reasonably well; no appar
--- NOTE | 2021-12-08 12:36 | PM.PNNEP ---
Progress Note: A&P Assessment and Plan (1) SAMARA (acute kidney injury): Code(s): N17.9 - Acute kidney failure, unspecified Status: Acute Assessment and Plan: as noted on admission suspect multifactorial: CHF exacerbation relative hypotension cardiorenal syndrome (and associated chronic prerenal azotemia) severe pulmonary HTN anemia urine electrolytes are pre renal creatinine has been running higher than baseline but relatively stable Dr. Espinal already had an extensive discussion with her regarding her fluid status and cardiac issues (see his last note dated 12/03/21) this is likely a situation where we have to accept a higher creatinine to keep her volume status relatively stable -- unfortunately, this will put her at high risk of needing dialysis in the near future (2) CKD (chronic kidney disease): Code(s): N18.9 - Chronic kidney disease, unspecified Status: Acute Assessment and Plan: creatinine has fluctuated ~ 0.9 - 1.3mg/dl in the last year likely due to HTN, DM, vascular disease, and CHF with necessity of diuretic therapy she may be reaching a new baseline in the low 2s (see #1) (3) Acute and chronic respiratory failure: Code(s): J96.20 - Acute and chronic respiratory failure, unspecified whether with hypoxia or hypercapnia Status: Acute Assessment and Plan: likely due to her pulmonary HTN possibly complicated by her PFO along with emphysema and untreated GUANACO fluid overload may have also been a contributing factor but she has been aggressively diuresis since admission and remains in negative fluid balance to date Pulmonary following with recommendations noted (4) Acute exacerbation of CHF (congestive heart failure): Qualifiers: Heart failure type: systolic Qualified Code(s): I50.23 - Acute on chronic systolic (congestive) heart failure Code(s): I50.9 - Heart failure, unspecified Status: Acute Assessment and Plan: Cardiology following echo shows severe pulmonary hypertension and [id number] tricuspid regurgitation; LV is good except for some grade 1 diastolic dysfunction chest x-ray and CT do show excess lung water continue fluid restriction on bumex, acetazolamide, spironolactone, and metolazone she still requires potassium supplements as well (5) Anemia: Code(s): D64.9 - Anemia, unspecified Status: Chronic Assessment and Plan: some what of a chronic issue possibly worsened by acute illness and renal dysfunction s/p PRBC transfusion s/p course of zoey on Epogen may need to follow-up with Dr. Hanna to continue this as an outpatient (6) Hypertension: Code(s): I10 - Essential (primary) hypertension Status: Chronic Assessment and Plan: not an issue at this time BP on the soft/relatively low at this time on no antihypertensives (7) Diabetes mellitus: Qualifiers: Diabetes mellitus type: type 2 Diabetes mellitus snf insulin use: without snf use Diabetes mellitus complication status: with hyperglycemia Qualified Code(s): E11.65 - Type 2 diabetes mellitus with hyperglycemia Code(s): E11.9 - Type 2 diabetes mellitus without complications Status: Chronic Assessment and Plan: on Accu-Cheks sliding-scale insulin Will continue to follow. Subjective Date/time seen: 12/08/21 12:36 Despite ongoing high oxygen needs, she otherwise feels reasonably well; no apparent distress voiced; no new issues/events overnight or earlier this AM; possible transfer to [facility] for further management of her significant/severe pulmonary hypertension; continues to tolerated diuretic therapy with relative stability in renal function. Exam Narrative: General: WD/WN AA female in NAD Heart: normal S1 and S2; no rub Lungs: decreased breath sounds at the bases with a few crackles Abdomen: soft, nontender, nondistended, posi
--- NOTE | 2021-12-08 14:17 | PC.NURSE ---
On 12/08/21, the student, [Amena Lott], provided care and completed [facility] documentation on this patient. RN was made aware of the O2 sat of 87% immediately. I have reviewed the student's documentation and agree with the findings.
--- NOTE | 2021-12-08 15:13 | PCNFU ---
Nutrition Follow-Up Complete: Pt current nutrition is heart healthy diet and dietary supplements Last recorded weight is 138.3 kg, down 3.2kg since last reported weight on 12/07/21. Bowel Motility: +BM 12/07 reported Labs Reviewed: hgb 8.2, hct 29.2, ALP 132, Cl 95, GFR 29, BUN 41, Cr 2.1, Glu 120 Meds Noted: diamox, lipitor, bumex, lovenox, epogen, zetia, neurontin, mucinex, zarozolyn, protonix, snokot, aldactone Skin: No new skin breakdown at this time. WNL Additional Notes: Current nutrition is a heart healthy diet, fluid restriction, and dietary supplement of Ensure Compact PRN providing an additional 220kcal and 9g of protein to increase caloric intake. Reported intake is 50% x3, and 100%. Per physician notes, pt is pending transfer to [facility] pulmonary hypertension clinic for further evaluation and treatment. Agree with diet order at this time. No new nutritional interventions at this time. No new nutritional needs at this time. Will continue to follow if pt is not transferred out. Will monitor every 5 days
--- NOTE | 2021-12-08 16:03 | PCPTNOTE ---
Attempted treatment nursing students in room taking patient blood sugar, patient stated she needed to call her daughter and give her an update before she would do anything. Will attempt again this afternoon.
[2021-12-08] MEDS: BUMETANIDE INJ 1 MG/4 ML VIAL IV PUSH (16:54)
[2021-12-08 16:55] LABS: Glucose Point of Care 107 mg/dl (65-105)
[2021-12-08 21:21] LABS: ANA Cascade Screen Negative (Negative)
[2021-12-08 23:57] LABS: Glucose Point of Care 112 mg/dl (65-105)
[2021-12-09] VITALS (13 sets, daily range): BP systolic 98–108; BP diastolic 46–55; PULSE 68–95; RESP 18–22; TEMP 36.5–36.7; O2SAT 90–97
[2021-12-09 06:33] LABS: Hematocrit 29.8 % (37.0-47.0); Hemoglobin 8.3 g/dL (12.0-15.0); Immature Platelet Fraction Pct 3.5 % (0.9-11.2); Mean Corpuscular HGB Conc 27.9 g/dl (32-36); Mean Corpuscular Hemoglobin 22.3 pg (26-34); Mean Corpuscular Volume 79.9 fl (80-100); Mean Platelet Volume 10.7 fl (7.4-10.4); Platelet Count Result 287 k/mm3 (150-375); Red Blood Count 3.73 M/mm3 (4.2-5.4); Red Cell Distribution Width 26.8 % (11.5-14.5); White Blood Count 8.4 K/mm3 (4.5-10.0)
[2021-12-09 07:04] LABS: Alanine Aminotransferase 8 U/L (4-35); Albumin Level 3.7 g/dL (3.5-5.1); Alkaline Phosphatase 128 U/L (38-126); Anion Gap 10 mmol/L (8-16); Aspartate Amino Transferase 45 U/L (14-36); Bilirubin,Total 1.4 mg/dL (0.2-1.3); Blood Urea Nitrogen 39 mg/dL (7-17); Calcium 8.9 mg/dL (8.4-10.2); Carbon Dioxide 35 mmol/L (22-30); Chloride 94 mmol/L (98-107); Estimated CRCL calculation 34 ml/min; Estimated Glomerular Filt Rate 26; Glucose 108 mg/dL (65-110); Magnesium 2.4 mg/dL (1.6-2.3); Potassium 3.8 mmol/L (3.4-5.0); Sodium 139 mmol/L (137-145)
[2021-12-09 07:29] LABS: Large Platelets Present; Lymphocytes Absolute Manual 0.42 K/mm3 (1.1-4.5); Monocytes Absolute Manual 0.08 K/mm3 (0.1-0.90); Monocytes Percent Manual 1 % (3-9); Neutrophils Percent Manual 94 % (46-73); Nucleated Red Blood Cells 1 %; Platelet Estimate Adequate (Adequate); Total Cells Counted 100
[2021-12-09 07:32] LABS: Schistocytes 1+ (NORMAL)
[2021-12-09 07:33] LABS: Acanthocytes 2+ (NORMAL); Ovalocytes 2+ (NORMAL)
[2021-12-09 07:34] LABS: Anisocytosis 2+ (NORMAL); Helmet Cells 1+ (NORMAL)
[2021-12-09 07:36] LABS: Aldolase 5.3 U/L (<=8.1)
[2021-12-09 07:50] LABS: Glucose Point of Care 99 mg/dl (65-105)
[2021-12-09] MEDS: UMECLIDINIUM/VILANTEROL 62.5-25 MCG ELLIPTA 1 PUFF INHALATION (08:31)
[2021-12-09] MEDS: guaiFENesin 12 HR 600 MG TABCR 1200 MG PO ×2 (08:48→21:12)
[2021-12-09] MEDS: ENOXAPARIN 40 MG/0.4 ML SYRINGE SUB-Q (08:48)
[2021-12-09] MEDS: EZETIMIBE 10 MG TABLET PO (08:48)
[2021-12-09] MEDS: metOLazone 5 MG TABLET PO (08:49)
[2021-12-09] MEDS: acetaZOLAMIDE TAB 250 MG TABLET 500 MG PO ×2 (08:49→16:06)
[2021-12-09] MEDS: BUMETANIDE INJ 2.5 MG/10 ML VIAL 2 MG IV PUSH (08:49)
[2021-12-09] MEDS: GABAPENTIN 100 MG CAPSULE PO ×3 (08:49→16:06)
[2021-12-09] MEDS: ATORVASTATIN 40 MG TABLET PO (08:50)
[2021-12-09] MEDS: POTASSIUM CHLORIDE 10 MEQ TABLET.ER PO ×2 (08:50→16:07)
[2021-12-09] MEDS: POLYSACCHARIDE IRON COMPLEX 150 MG CAPSULE PO ×2 (08:50→16:07)
[2021-12-09] MEDS: SPIRONOLACTONE 25 MG TABLET PO ×2 (08:50→16:07)
[2021-12-09] MEDS: PANTOPRAZOLE 40 MG TABLET PO ×2 (08:50→16:06)
--- NOTE | 2021-12-09 08:59 | P.PNPL_ITS ---
Progress Note: A&P Assessment and Plan (1) Acute on chronic respiratory failure with hypoxemia: Code(s): J96.21 - Acute and chronic respiratory failure with hypoxia Status: Resolved Assessment and Plan: 12/06 Patient with a history of moderate restrictive lung disease with a TLC of 46% predicted and an FEV1 of 61% predicted. Patient also has a decreased DLCO on adjusted for hemoglobin at 24% and a mildly decreased DLCO corrected for alveolar volume at 71%. Patient also has diagnosed obstructive sleep apnea. patient also has mild centrilobular emphysema on her CT scan of the chest. Currently she has acute on chronic hypoxemic respiratory failure with increased oxygen demands. patient has no evidence of hypercarbic respiratory failure with a pH of 7.46/49/45. Patient has been aggressively diures[place] [address], pedal edema and a chest x-ray consistent with fluid overload. There are no pleural effusions and the patient also had ascites mentioned on her abdominal CT from 11/19/2021. She has been aggressively diuresed by the hospitalist and her admission creatinine was 1.9 and currently it is 2.2. agree with as aggressive diuresis as tolerated by her cardiac and renal systems. Will look for additional etiologies of hypoxemic respiratory failure and will obtain a echo with a bubble study. I will send serologies for interstitial lung disease (MARAH cascade, Anca screen, rheumatoid factor, anti CCP antibody, hypersensitivity pneumonitis, aldolase). 12/07 Patient wore hospital BiPAP last night 10/05 with 60% FiO2 and her sats were 100% when I enter the room. I discontinued the BiPAP and placed her on airflow 40 L and 60% FiO2 and her saturations were 90-91%. Patient has a bubble study on 12/06/21 demonstrating a PFO. Patient has significant pulmonary hypertension with PASP of 69 on echocardiogram on 11/20/21. regarding the etiology of her hypoxemic respiratory failure I am concerned that her pulmonary hypertension and PFO are the major contributor. She may have fluid overload but she has been diuresed and now weighs 141.5 kg from an Admission weight on 11/19/21 is 161.1 kg and weight on 12/06/2021 is 141.7. When she left the hospital on 10/07/2021 she weighed 139.5 kilos (required 5 L rest and 6 with activity). When she left the hospital on 07/14/2021 she weighed 137 kilos (required 4 L rest and 8 oximizer). she does have mild centrilobular emphysema on her CT scan but she has no evidence of a current COPD exacerbation or pneumonia and has no wheezing on Anoro Ellipta. she does have untreated obstructive sleep apnea and she is noncompliant at home with her BiPAP. However her pulmonary hypertension is out of proportion to untreated obstructive sleep apnea. She did tolerate CPAP 10/05 last night and we will continue this in the hospital. Regarding the possibility of interstitial lung disease there is no CT evidence of interstitial lung disease dating back to 09/08/2019. Serologies are pending. Rheumatoid factor is negative. Given her severe hypoxemia, in my opinion patient should be transferred to [facility] to be evaluated by the pulmonary hypertension team for possible right and left heart catheterization to verify pulmonary hypertension, assess her PFO and optimize treatments in order to treat her severe hypoxemic respiratory failure. I discussed this with the patient and she is in agreement. I discussed this with Can Aguilar who will initiate this transfer. 12/08 Patient currently on Airvo 40 L and 55% FiO2 with saturations 90%. Patient was charted as using her BiPAP at 10:00 p.m. and then at 1:21 a.m. it was listed as standby. When I a
--- NOTE | 2021-12-09 11:00 | PM.IMPN ---
Progress Note: A&P Assessment and Plan (1) Pulmonary hypertension: Code(s): I27.20 - Pulmonary hypertension, unspecified Status: Acute Assessment and Plan: Severe pulmonary hypertension Noted to be 69 on ECHO BIpap at night Transfer is still pending bed availability (2) Acute and chronic respiratory failure: Code(s): J96.20 - Acute and chronic respiratory failure, unspecified whether with hypoxia or hypercapnia Status: Acute Assessment and Plan: Treat underlying cause Secondary to CHF exacerbation versus COPD/anemia/CRF/deconditioning/obesity on 11/22/21 elevated D.Dimer-3.01 CTA on 11/24/21 showed mild emphysema.. There is a chronic 12 mm nodule in right upper lobe containing fat, consistent with a hamartoma. small pericardial effusion.Small volume of ascites. edema of the intra-abdominal fat and body wall fat. no pulmonary embolus Continue to use BiPAP/CPAP per pulmonology Pulm consult thank you for your help Chest xray shows Pulm edema/atelectasis/PNA 12/06/21 ABG 12/06/21 Shows Respiratory alkalosis with hypoxemia PH 7.457, CO2 48.6, O2 44.9, HCO3 33.6, O2 sat 82.6 Placed back on airvo Trend SPO2 Echo with bubble did show a R to L shunt and severe pulmonary hypertension (3) Acute exacerbation of congestive heart failure: Code(s): I50.9 - Heart failure, unspecified Status: Acute Assessment and Plan: Acute diastolic exacerbation of heart failure Continue Bumex 2mg morning and 1 mg evening, due to rising Creatinine, 2.2 today acetazolamide spironolactone and also metolazone 5mg per day. still requiring daily potassium supplements. Dr. Hopkins and Dr. Espinal following and diuresing patient, treating cardiomyopathy/HTN/CHF/ARF/CRF Strict I/O -1185 Daily weights today 138 kg Check ECHO - showed MV severe calcification, EF 65-70%, moderate TV regurg, severe pulm HTN with paP 69, right atrial pressure elevated. LV has grade 1 diastolic dysfunction. bubble study showed R to L shunt CT scan showed mild pulmonary edema. Enlargement of the central pulmonary arteries consistent with pulmonary arterial hypertension and Tiny pericardial effusion. No pleural effusion. BNP 4280 on 11/19/21, 3690 on 11/21/2021, and 6250 11/28/21. Continue fluid restriction CHF education ordered. patient would benefit from following up at a CHF clinic after discharge and close monitoring by Supervisor Varnish. Consulted Dr. Russo for breathing (4) Renal failure: Code(s): N19 - Unspecified kidney failure Status: Acute Assessment and Plan: acute on CKD (chronic kidney disease) creatinine baseline 0.9 - 1.3mg/dl today 2.30 likely due to HTN, DM, vascular disease, and CHF with necessity of diuretic therapy Monitor her renal function closely while diuresing Avoid nephrotoxins Appreciate nephrology consult and treating Continue to monitor I&O (5) Chronic anemia: Code(s): D64.9 - Anemia, unspecified Status: Acute Assessment and Plan: CHRONIC Hemoglobin is stable but remains in the mid 7's, 8.3 today Continue iron supplementation, switched to IV for 5 bags; Finished Venofer and on Epogen. Also continue PPI as she was noted to have gastritis on EGD in September 2021 Iron supplementation and continues anemia, combined with her significantly increased O2 requirement and soft BPs, 1 unit RBC 11/21/21 transfuse as needed. worsened by acute illness and renal dysfunction need to follow up with Hose Operator Dr. Hanna and Grain Elevator Motor Starter as an outpatient to continue Epogen doses/anemia tx. (6) Hypertension: Qualifiers: Hypertension type: essential hypertension Qualified Code(s): I10 - Essential (primary) hypertension Code(s): I10 - Essential (primary) hypertension Status: Acute Assessment and Plan: Current BP 106/55 Blood pressure soft Monitor closely while diuresing holding norvasc and losartan at this time, will determi
[2021-12-09 11:34] LABS: Glucose Point of Care 105 mg/dl (65-105)
--- NOTE | 2021-12-09 12:42 | P.PNNP_ITS ---
Progress Note: A&P Assessment and Plan (1) SAMARA (acute kidney injury): Code(s): N17.9 - Acute kidney failure, unspecified Status: Acute Assessment and Plan: * as noted on admission * suspect multifactorial: * CHF exacerbation * relative hypotension * cardiorenal syndrome (and associated chronic prerenal azotemia) * severe pulmonary HTN * anemia * urine electrolytes are pre renal * creatinine has been running higher than baseline but relatively stable * Dr. Espinal already had an extensive discussion with her regarding her fluid status and cardiac issues (see his last note dated 12/03/21) * this is likely a situation where we have to accept a higher creatinine to keep her volume status relatively stable -- unfortunately, this will put her at high risk of needing dialysis in the near future (2) CKD (chronic kidney disease): Code(s): N18.9 - Chronic kidney disease, unspecified Status: Acute Assessment and Plan: * creatinine has fluctuated ~ 0.9 - 1.3mg/dl in the last year * likely due to HTN, DM, vascular disease, and CHF with necessity of diuretic therapy * she may be reaching a new baseline in the low 2s (see #1) (3) Acute and chronic respiratory failure: Code(s): J96.20 - Acute and chronic respiratory failure, unspecified whether with hypoxia or hypercapnia Status: Acute Assessment and Plan: * likely due to her pulmonary HTN possibly complicated by her PFO along with emphysema and untreated GUANACO * fluid overload may have also been a contributing factor but she has been aggressively diuresis since admission and remains in negative fluid balance to date * Pulmonary following with recommendations noted (4) Acute exacerbation of CHF (congestive heart failure): Qualifiers: Heart failure type: systolic Qualified Code(s): I50.23 - Acute on chronic systolic (congestive) heart failure Code(s): I50.9 - Heart failure, unspecified Status: Acute Assessment and Plan: * Cardiology following * echo shows severe pulmonary hypertension and [id number]-[id number] tricuspid regurgitation; LV is good except for some grade 1 diastolic dysfunction * chest x-ray and CT do show excess lung water * continue fluid restriction * on bumex, acetazolamide, spironolactone, and metolazone * considering backing off diuretics in the next day or two (she is negative almost 20L since admission) * she still requires potassium supplements as well (5) Anemia: Code(s): D64.9 - Anemia, unspecified Status: Chronic Assessment and Plan: * some what of a chronic issue * possibly worsened by acute illness and renal dysfunction * s/p PRBC transfusion * s/p course of venofer * on Epogen * may need to follow-up with Dr. Hanna to continue this as an outpatient (6) Hypertension: Code(s): I10 - Essential (primary) hypertension Status: Chronic Assessment and Plan: * not an issue at this time * BP on the soft/relatively low at this time * on no antihypertensives (7) Diabetes mellitus: Qualifiers: Diabetes mellitus complication status: with hyperglycemia Diabetes mellitus penitentiary insulin use: without assistant terminal manager use Diabetes mellitus type: type 2 Qualified Code(s): E11.65 - Type 2 diabetes mellitus with hyperglycemia Code(s): E11.9 - Type 2 diabetes mellitus without complications Status: Chronic Assessment and Plan: * on Accu-Cheks * sliding-scale insulin Will continue to follow. Subjective Date
--- NOTE | 2021-12-09 12:42 | PM.PNNEP ---
Progress Note: A&P Assessment and Plan (1) SAMARA (acute kidney injury): Code(s): N17.9 - Acute kidney failure, unspecified Status: Acute Assessment and Plan: as noted on admission suspect multifactorial: CHF exacerbation relative hypotension cardiorenal syndrome (and associated chronic prerenal azotemia) severe pulmonary HTN anemia urine electrolytes are pre renal creatinine has been running higher than baseline but relatively stable Dr. Espinal already had an extensive discussion with her regarding her fluid status and cardiac issues (see his last note dated 12/03/21) this is likely a situation where we have to accept a higher creatinine to keep her volume status relatively stable -- unfortunately, this will put her at high risk of needing dialysis in the near future (2) CKD (chronic kidney disease): Code(s): N18.9 - Chronic kidney disease, unspecified Status: Acute Assessment and Plan: creatinine has fluctuated ~ 0.9 - 1.3mg/dl in the last year likely due to HTN, DM, vascular disease, and CHF with necessity of diuretic therapy she may be reaching a new baseline in the low 2s (see #1) (3) Acute and chronic respiratory failure: Code(s): J96.20 - Acute and chronic respiratory failure, unspecified whether with hypoxia or hypercapnia Status: Acute Assessment and Plan: likely due to her pulmonary HTN possibly complicated by her PFO along with emphysema and untreated GUANACO fluid overload may have also been a contributing factor but she has been aggressively diuresis since admission and remains in negative fluid balance to date Pulmonary following with recommendations noted (4) Acute exacerbation of CHF (congestive heart failure): Qualifiers: Heart failure type: systolic Qualified Code(s): I50.23 - Acute on chronic systolic (congestive) heart failure Code(s): I50.9 - Heart failure, unspecified Status: Acute Assessment and Plan: Cardiology following echo shows severe pulmonary hypertension and [id number] tricuspid regurgitation; LV is good except for some grade 1 diastolic dysfunction chest x-ray and CT do show excess lung water continue fluid restriction on bumex, acetazolamide, spironolactone, and metolazone considering backing off diuretics in the next day or two (she is negative almost 20L since admission) she still requires potassium supplements as well (5) Anemia: Code(s): D64.9 - Anemia, unspecified Status: Chronic Assessment and Plan: some what of a chronic issue possibly worsened by acute illness and renal dysfunction s/p PRBC transfusion s/p course of zoey on Epogen may need to follow-up with Dr. Hanna to continue this as an outpatient (6) Hypertension: Code(s): I10 - Essential (primary) hypertension Status: Chronic Assessment and Plan: not an issue at this time BP on the soft/relatively low at this time on no antihypertensives (7) Diabetes mellitus: Qualifiers: Diabetes mellitus complication status: with hyperglycemia Diabetes mellitus parts counterman insulin use: without senior living use Diabetes mellitus type: type 2 Qualified Code(s): E11.65 - Type 2 diabetes mellitus with hyperglycemia Code(s): E11.9 - Type 2 diabetes mellitus without complications Status: Chronic Assessment and Plan: on Accu-Cheks sliding-scale insulin Will continue to follow. Subjective Date/time seen: 12/09/21 12:42 No new issues or problems to report at this time; anxious for discharge and seems a bit down by the fact she is still hospitalized in general; renal function relatively stable and continues to make good urine output with diuretic regimen; no apparent distress voiced; no issues/events overnight or earlier this AM. Exam Narrative: General: WD/WN AA female in NAD Heart: normal S1 and S2; no rub Lungs: decreased breath
[2021-12-09 12:52] LABS: Anti Cyclic Citrullinated Pept <16 Units (<20)
[2021-12-09] MEDS: BUMETANIDE INJ 1 MG/4 ML VIAL IV PUSH (16:06)
[2021-12-09 16:24] LABS: Glucose Point of Care 153 mg/dl (65-105)
[2021-12-09 22:31] LABS: Glucose Point of Care 122 mg/dl (65-105)
[2021-12-10] VITALS: PULSE 75
[2021-12-10 00:30] VITALS: PULSE 90; RESP 22; O2SAT 94
--- NOTE | 2021-12-10 01:14 | PC.NURSE ---
12/10/2021 0103 called recieved from [facility] transfer center stating no bed available at this time.
[2021-12-10 02:35] VITALS: PULSE 85; RESP 20; O2SAT 96
[2021-12-10 04:00] VITALS: PULSE 77
--- NOTE | 2021-12-10 05:40 | PC.NURSE ---
12/10/2021 0433 [facility] transfer center called to give room number of 438 and report can be called at [phone].
--- NOTE | 2021-12-10 05:42 | PC.NURSE ---
12/10/2021 0506 called to give pt report to magdaleno at [facility]. accepting physician is jessee ortiz.
[2021-12-10 05:44] VITALS: BP 105/59; PULSE 96; RESP 20; TEMP 36.8; O2SAT 98
--- NOTE | 2021-12-10 05:51 | PC.NURSE ---
12/10/2021 0535 pt requests staff contact her daughter (dmitri grider) at [phone] regarding news of the transfer to [facility]. attempted several times to contact but it continues to go to voicemail. pt made aware.
--- NOTE | 2021-12-10 05:54 | PC.NURSE ---
12/10/2021 0547 per pt's request a call was placed to pt's son (keely william) at [phone] regarding transfer to [facility] but no answer.
--- NOTE | 2021-12-10 06:17 | PC.NURSE ---
12/10/2021 0613 spoke with pt's daughter (dmitri grider) regarding pt transfer to [facility] this am also given room number of 438 and nurse station at [phone].
--- NOTE | 2021-12-10 06:55 | P.PNIM_ITS ---
Progress Note: A&P Assessment and Plan (1) Pulmonary hypertension: Code(s): I27.20 - Pulmonary hypertension, unspecified Status: Acute Assessment and Plan: * Severe pulmonary hypertension * Noted to be 69 on ECHO * BIpap at night * Transfer is still pending bed availability * Confirmed patient is still on the list to transfer (2) Acute and chronic respiratory failure: Code(s): J96.20 - Acute and chronic respiratory failure, unspecified whether with hypoxia or hypercapnia Status: Acute Assessment and Plan: * Secondary to CHF exacerbation versus COPD/anemia/CRF/deconditioning/obesity * CTA on 11/24/21 showed mild emphysema.. There is a chronic 12 mm nodule in right upper lobe containing fat, consistent with a hamartoma. small pericardial effusion.Small volume of ascites. edema of the intra-abdominal fat and body wall fat. no pulmonary embolus * Continue to use BiPAP/CPAP per pulmonology * Pulm consult thank you for your help * Chest xray shows Pulm edema/atelectasis/PNA 12/06/21 * ABG 12/06/21 Shows Respiratory alkalosis with hypoxemia PH 7.457, CO2 48.6, O2 44.9, HCO3 33.6, O2 sat 82.6 * Placed back on airvo 40L 60% * Echo with bubble did show a R to L shunt and severe pulmonary hypertension (3) Acute exacerbation of congestive heart failure: Code(s): I50.9 - Heart failure, unspecified Status: Acute Assessment and Plan: * Acute diastolic exacerbation of heart failure * Changed to Bumex 1mg IV BID * acetazolamide spironolactone and also metolazone 5mg per day * Dr. Hopkins and Dr. Espinal following and diuresing patient, treating cardiomyopathy/HTN/CHF/ARF/CRF * Strict I/O -29025td, decreased diuresis at this time * Daily weights today 138 kg * Check ECHO - showed MV severe calcification, EF 65-70%, moderate TV regurg, severe pulm HTN with paP 69, right atrial pressure elevated. LV has grade 1 diastolic dysfunction. * bubble study showed R to L shunt * CT scan showed mild pulmonary edema. Enlargement of the central pulmonary arteries * BNP 4280 on 11/19/21, 3690 on 11/21/2021, and 6250 11/28/21, recheck in the am * Continue fluid restriction 1200ml daily (4) Acute on chronic kidney failure: Code(s): N17.9 - Acute kidney failure, unspecified; N18.9 - Chronic kidney disease, unspecified Status: Acute Assessment and Plan: * acute on CKD (chronic kidney disease) * creatinine baseline 0.9 - 1.3mg/dl today 2.30 * likely due to HTN, DM, vascular disease, and CHF * Trend labs * Avoid nephrotoxic medications * Appreciate nephrology consult and treating * Trend I&Os closely * relatively stable at this time * Ur Na 7, Ur creatinine 59.9 * follow trend of renal function and UOP (5) Chronic anemia: Code(s): D64.9 - Anemia, unspecified Status: Acute Assessment and Plan: * Acute on chronic * Probably secondary to kidney disease, might be a component of heart failure causing lower levels * Hemoglobin is stable * PPI EGD in September 2021 showed gastritis * Iron supplementation 150mg PO BID * 1 unit RBC 11/21/21 * transfuse as needed. (6) Hypertension: Qualifiers: Hypertension type: essential hypertension Qualified Code(s): I10 - Essential (primary) hypertension Code(s): I10 - Essential (primary) hypertension Status: Acute Assessment and Plan: * Current BP 105/59 * Blood pressure soft * Monitor closely while diuresing * holding
--- NOTE | 2021-12-10 06:55 | PM.IMPN ---
Progress Note: A&P Assessment and Plan (1) Pulmonary hypertension: Code(s): I27.20 - Pulmonary hypertension, unspecified Status: Acute Assessment and Plan: Severe pulmonary hypertension Noted to be 69 on ECHO BIpap at night Transfer is still pending bed availability Confirmed patient is still on the list to transfer (2) Acute and chronic respiratory failure: Code(s): J96.20 - Acute and chronic respiratory failure, unspecified whether with hypoxia or hypercapnia Status: Acute Assessment and Plan: Secondary to CHF exacerbation versus COPD/anemia/CRF/deconditioning/obesity CTA on 11/24/21 showed mild emphysema.. There is a chronic 12 mm nodule in right upper lobe containing fat, consistent with a hamartoma. small pericardial effusion.Small volume of ascites. edema of the intra-abdominal fat and body wall fat. no pulmonary embolus Continue to use BiPAP/CPAP per pulmonology Pulm consult thank you for your help Chest xray shows Pulm edema/atelectasis/PNA 12/06/21 ABG 12/06/21 Shows Respiratory alkalosis with hypoxemia PH 7.457, CO2 48.6, O2 44.9, HCO3 33.6, O2 sat 82.6 Placed back on airvo 40L 60% Echo with bubble did show a R to L shunt and severe pulmonary hypertension (3) Acute exacerbation of congestive heart failure: Code(s): I50.9 - Heart failure, unspecified Status: Acute Assessment and Plan: Acute diastolic exacerbation of heart failure Changed to Bumex 1mg IV BID acetazolamide spironolactone and also metolazone 5mg [address] Hopkins and Dr. Espinal following and diuresing patient, treating cardiomyopathy/HTN/CHF/ARF/CRF Strict I/O -61481eu, decreased diuresis at this time Daily weights today 138 kg Check ECHO - showed MV severe calcification, EF 65-70%, moderate TV regurg, severe pulm HTN with paP 69, right atrial pressure elevated. LV has grade 1 diastolic dysfunction. bubble study showed R to L shunt CT scan showed mild pulmonary edema. Enlargement of the central pulmonary arteries BNP 4280 on 11/19/21, 3690 on 11/21/2021, and 6250 11/28/21, recheck in the am Continue fluid restriction 1200ml daily (4) Acute on chronic kidney failure: Code(s): N17.9 - Acute kidney failure, unspecified; N18.9 - Chronic kidney disease, unspecified Status: Acute Assessment and Plan: acute on CKD (chronic kidney disease) creatinine baseline 0.9 - 1.3mg/dl today 2.30 likely due to HTN, DM, vascular disease, and CHF Trend labs Avoid nephrotoxic medications Appreciate nephrology consult and treating Trend I&Os closely relatively stable at this time Ur Na 7, Ur creatinine 59.9 follow trend of renal function and UOP (5) Chronic anemia: Code(s): D64.9 - Anemia, unspecified Status: Acute Assessment and Plan: Acute on chronic Probably secondary to kidney disease, might be a component of heart failure causing lower levels Hemoglobin is stable PPI EGD in September 2021 showed gastritis Iron supplementation 150mg PO BID 1 unit RBC 11/21/21 transfuse as needed. (6) Hypertension: Qualifiers: Hypertension type: essential hypertension Qualified Code(s): I10 - Essential (primary) hypertension Code(s): I10 - Essential (primary) hypertension Status: Acute Assessment and Plan: Current BP 105/59 Blood pressure soft Monitor closely while diuresing holding norvasc and losartan at this time Adjust therapy as indicated (7) COPD (chronic obstructive pulmonary disease): Qualifiers: COPD type: unspecified COPD Qualified Code(s): J44.9 - Chronic obstructive pulmonary disease, unspecified Code(s): J44.9 - Chronic obstructive pulmonary disease, unspecified Status: Chronic Assessment and Plan: possible acute exacerbation at admission with CO2 retention and increased O2 requirement Continue mucinex, and inhaler a
[2021-12-10 07:28] LABS: Basophils Percent Auto 0.4 % (0.2-1.2); Eosinophils Absolute Auto 0.2 K/mm3 (0-0.3); Eosinophils Percent Auto 1.9 % (0-4.4); Hematocrit 29.2 % (37.0-47.0); Hemoglobin 8.2 g/dL (12.0-15.0); Immature Granulocyte Absolute 0.03 K/mm3 (0.00-0.031); Immature Granulocyte Percent A 0.4 % (0-0.5); Immature Platelet Fraction Pct 3.3 % (0.9-11.2); Lymphocytes Absolute Auto 0.94 K/mm3 (0.9-3.2); Lymphocytes Percent Auto 11.9 % (18.3-44.2); Mean Corpuscular HGB Conc 28.1 g/dl (32-36); Mean Corpuscular Hemoglobin 22.5 pg (26-34); Mean Corpuscular Volume 80.2 fl (80-100); Mean Platelet Volume 10.4 fl (7.4-10.4); Monocytes Absolute Auto 0.4 K/mm3 (0.1-0.6); Monocytes Percent Auto 5.3 % (2.6-8.5); Neutrophils Absolute Auto 6.3 K/mm3 (1.3-6.7); Neutrophils Percent Auto 80.1 % (45.5-73.1); Platelet Count Result 286 k/mm3 (150-375); Red Blood Count 3.64 M/mm3 (4.2-5.4); Red Cell Distribution Width 26.8 % (11.5-14.5); White Blood Count 7.9 K/mm3 (4.5-10.0)
[2021-12-10 07:36] LABS: Alanine Aminotransferase 8 U/L (4-35); Albumin Level 3.7 g/dL (3.5-5.1); Alkaline Phosphatase 138 U/L (38-126); Anion Gap 8 mmol/L (8-16); Aspartate Amino Transferase 40 U/L (14-36); Bilirubin,Total 1.1 mg/dL (0.2-1.3); Blood Urea Nitrogen 39 mg/dL (7-17); Calcium 9.5 mg/dL (8.4-10.2); Carbon Dioxide 36 mmol/L (22-30); Chloride 95 mmol/L (98-107); Estimated CRCL calculation 34 ml/min; Estimated Glomerular Filt Rate 26; Glucose 109 mg/dL (65-110); Magnesium 2.3 mg/dL (1.6-2.3); Potassium 3.1 mmol/L (3.4-5.0); Sodium 139 mmol/L (137-145)
[2021-12-10 07:44] LABS: NT Pro B Type Natriuretic Pept 6340 pg/mL (5-100)
--- NOTE | 2021-12-10 09:46 | P.TS_ITS ---
Transfer Discharge Sum: Prov Provider Date of admission: 11/20/21 14:11 Primary care physician: Tessy Murillo, MGreg Admitting clinician: Kun Granados MD Attending physician on admission: Kun Granados Consults: 11/20/21 Consult to Physician Routine Comment: spoke to @1019 (,us) Consulting Provider: Jett Hopkins director call/MD group to consult: Reason for consultation: CHF- notify in a.m Has provider been notified: Yes 11/21/21 Consult to Physician Routine Comment: spoke to @1248 (,us) Consulting Provider: Piper Vinson director call/MD group to consult: Account Executive [employer] Reason for consultation: low urine output, needs aggressive diuresis (bumex ?), hypoxia due to CHF Has provider been notified: Yes Consult to Physician Routine Comment: spoke to dr he @1238 (,us) Consulting Provider: Atiya He director call/MD group to consult: Music Mixer Reason for consultation: severe hypoxia Has provider been notified: Yes Attending physician on discharge: Cathie Ybarra Discharging clinician: Can Aguilar Anticipated date of transfer: 12/10/21 Receiving physician/facility: [facility] DS: Admitting Diagnosis Discharge Date 12/10/21 0758 Admitting Diagnosis CHF exacerbation, severe pulmonary hypertension, acute on chronic respiratory DS: Discharge Diagnosis Discharge Diagnosis (1) Pulmonary hypertension: Code(s): I27.20 - Pulmonary hypertension, unspecified Status: Acute Assessment and Plan: * Severe pulmonary hypertension * Noted to be 69 on ECHO * BIpap at night * Transfer is still pending bed availability * Confirmed patient is still on the list to transfer (2) Acute and chronic respiratory failure: Code(s): J96.20 - Acute and chronic respiratory failure, unspecified whether with hypoxia or hypercapnia Status: Acute Assessment and Plan: * Secondary to CHF exacerbation versus COPD/anemia/CRF/deconditioning/obesity * CTA on 11/24/21 showed mild emphysema.. There is a chronic 12 mm nodule in right upper lobe containing fat, consistent with a hamartoma. small pericardial effusion.Small volume of ascites. edema of the intra-abdominal fat and body wall fat. no pulmonary embolus * Continue to use BiPAP/CPAP per pulmonology * Pulm consult thank you for your help * Chest xray shows Pulm edema/atelectasis/PNA 12/06/21 * ABG 12/06/21 Shows Respiratory alkalosis with hypoxemia PH 7.457, CO2 48.6, O2 44.9, HCO3 33.6, O2 sat 82.6 * Placed back on airvo 40L 60% * Echo with bubble did show a R to L shunt and severe pulmonary hypertension (3) Acute exacerbation of congestive heart failure: Code(s): I50.9 - Heart failure, unspecified Status: Acute Assessment and Plan: * Acute diastolic exacerbation of heart failure * Changed to Bumex 1mg IV BID * acetazolamide spironolactone and also metolazone 5mg per day * Dr. Hopkins and Dr. Espinal following and diuresing patient, treating cardiomyopathy/HTN/CHF/ARF/CRF * Strict I/O -[id number], decreased diuresis at this time * Daily weights today 138 kg * Check ECHO - showed MV severe calcification, EF 65-70%, moderate TV regurg, severe pulm HTN with paP 69, right atrial pressure elevated. LV has grade 1 diastolic dysfunction. * bubble study showed R to L shunt * CT scan showed mild pulmonary edema. Enlargement of the central pulmonary arteries * BNP 4280 on 11/19/21, 3690 on 11/21/2021, and 6250 11/28/21, recheck in
--- NOTE | 2021-12-10 09:46 | PM.TDS ---
Transfer Discharge Sum: Prov Provider Date of admission: 11/20/21 14:11 Primary care physician: Tessy MurilloMendez Admitting clinician: Kun Granados MD Attending physician on admission: Kun Granados Consults: 11/20/21 Consult to Physician Routine Comment: spoke to @1019 (,us) Consulting Provider: Jett Hopkins call center specialist/MD group to consult: Reason for consultation: CHF- notify in a.m Has provider been notified: Yes 11/21/21 Consult to Physician Routine Comment: spoke to @1248 (,us) Consulting Provider: Piper Vinson call center specialist/MD group to consult: Outside Energy Sales Representatives Reason for consultation: low urine output, needs aggressive diuresis (bumex ?), hypoxia due to CHF Has provider been notified: Yes Consult to Physician Routine Comment: spoke to dr he @1238 (,us) Consulting Provider: Atiya He call center specialist/MD group to consult: Safety Officer Reason for consultation: severe hypoxia Has provider been notified: Yes Attending physician on discharge: Cathie Ybarra Discharging clinician: Can Aguilar Anticipated date of transfer: 12/10/21 Receiving physician/facility: [facility] DS: Admitting Diagnosis Discharge Date 12/10/21 0758 Admitting Diagnosis CHF exacerbation, severe pulmonary hypertension, acute on chronic respiratory DS: Discharge Diagnosis Discharge Diagnosis (1) Pulmonary hypertension: Code(s): I27.20 - Pulmonary hypertension, unspecified Status: Acute Assessment and Plan: Severe pulmonary hypertension Noted to be 69 on ECHO BIpap at night Transfer is still pending bed availability Confirmed patient is still on the list to transfer (2) Acute and chronic respiratory failure: Code(s): J96.20 - Acute and chronic respiratory failure, unspecified whether with hypoxia or hypercapnia Status: Acute Assessment and Plan: Secondary to CHF exacerbation versus COPD/anemia/CRF/deconditioning/obesity CTA on 11/24/21 showed mild emphysema.. There is a chronic 12 mm nodule in right upper lobe containing fat, consistent with a hamartoma. small pericardial effusion.Small volume of ascites. edema of the intra-abdominal fat and body wall fat. no pulmonary embolus Continue to use BiPAP/CPAP per pulmonology Pulm consult thank you for your help Chest xray shows Pulm edema/atelectasis/PNA 12/06/21 ABG 12/06/21 Shows Respiratory alkalosis with hypoxemia PH 7.457, CO2 48.6, O2 44.9, HCO3 33.6, O2 sat 82.6 Placed back on airvo 40L 60% Echo with bubble did show a R to L shunt and severe pulmonary hypertension (3) Acute exacerbation of congestive heart failure: Code(s): I50.9 - Heart failure, unspecified Status: Acute Assessment and Plan: Acute diastolic exacerbation of heart failure Changed to Bumex 1mg IV BID acetazolamide spironolactone and also metolazone [address] Hopkins and Dr. Espinal following and diuresing patient, treating cardiomyopathy/HTN/CHF/ARF/CRF Strict I/O -00906wf, decreased diuresis at this time Daily weights today 138 kg Check ECHO - showed MV severe calcification, EF 65-70%, moderate TV regurg, severe pulm HTN with paP 69, right atrial pressure elevated. LV has grade 1 diastolic dysfunction. bubble study showed R to L shunt CT scan showed mild pulmonary edema. Enlargement of the central pulmonary arteries BNP 4280 on 11/19/21, 3690 on 11/21/2021, and 6250 11/28/21, recheck in the am Continue fluid restriction 1200ml daily (4) Acute on chronic kidney failure: Code(s): N17.9 - Acute kidney failure, unspecified; N18.9 - Chronic kidney disease, unspecified Status: Acute Assessment and Plan: acute on CKD (chronic kidney disease) creatinine baseline 0.9 - 1.3mg/dl today 2.30 likely due to HTN, DM, vascular disease, and CHF Trend labs Avoid nephrotoxic medications Appreciate nephrology consult and treating Trend I&Os closely relativel
[2021-12-10 11:26] LABS: ANCA Screen Negative (Negative)
== END 2021-12-10 07:50 | disposition short-term general hospital (02) | DRG 291 ==
LOC: ANHED 14:53 → ANH3MEDSUR 16:53
PROVIDERS: Internal Medicine Cardiovascular Disease; Internal Medicine Nephrology; Internal Medicine Pulmonary Disease; Nurse Practitioner; Nurse Practitioner Adult Health; Physician Assistant; Admitting Provider Family Medicine; Emergency Provider Emergency Medicine; PCP Internal Medicine Infectious Disease; Visit Provider Nurse Practitioner
DX: I13.0 Hypertensive heart and chronic kidney disease with heart failure and stage 1 through stage 4 chronic kidney disease, or unspecified chronic kidney disease (principal); I50.33 Acute on chronic diastolic (congestive) heart failure; J96.21 Acute and chronic respiratory failure with hypoxia; N17.9 Acute kidney failure, unspecified; Q21.1 Atrial septal defect; E27.9 Disorder of adrenal gland, unspecified; E11.9 Type 2 diabetes mellitus without complications; E78.5 Hyperlipidemia, unspecified; R91.1 Solitary pulmonary nodule; Z87.891 Personal history of nicotine dependence; Z20.822 Contact with and (suspected) exposure to COVID-19; K74.60 Unspecified cirrhosis of liver; Z79.82 Long term (current) use of aspirin; D64.9 Anemia, unspecified; E11.65 Type 2 diabetes mellitus with hyperglycemia; E87.6 Hypokalemia; I42.9 Cardiomyopathy, unspecified; I27.20 Pulmonary hypertension, unspecified; E11.22 Type 2 diabetes mellitus with diabetic chronic kidney disease; N18.9 Chronic kidney disease, unspecified; I08.1 Rheumatic disorders of both mitral and tricuspid valves; G47.33 Obstructive sleep apnea (adult) (pediatric); J43.9 Emphysema, unspecified
CPT/HCPCS: 36415; 36430; 36600; 71045; 71275; 74176; 76775; 80048; 80053; 80069; 81001; 81050; 82040; 82085; 82274; 82436; 82570; 82805; 82948; 83036; 83540; 83550; 83605; 83690; 83735; 83880; 84100; 84132; 84156; 84300; 84443; 84484; 85025; 85027; 85055; 85380; 85610; 85730; 85999; 86036; 86038; 86200; 86331; 86430; 86606; 86609; 86850; 86900; 86901; 86920; 87086; 93005; 93306; 93308; 94002; 94003; 94640; 96374; 96375; 96376; 97110; 97116; 97162; 97164; 97165; 97530; 97535; 99285; A9270; C9803; G0378; J1650; J1756; J1815; J1940; J3480; J7040; J7050; P9016; Q4081; Q9967; U0003; U0005

== ENCOUNTER 2022-05-03 08:21 | Inpatient (IN) | payer MEDICARE, MEDICAID, SELFPAY ==
[2022-05-03] VITALS (19 sets, daily range): BP systolic 97–125; BP diastolic 64–74; PULSE 60–85; RESP 16–30; TEMP 36.1–36.7; O2SAT 91–100; BMI 38.9
--- NOTE | 2022-05-03 | ECHO_ITS ---
Patient Info Name: Maura Hill Age: 62 years : 1960 Gender: Female Ht: 65 in HR: 80 bpm BP: 97 / 64 mmHg Heart Rhythm: Sinus Rhythm Technical Quality: Fair Exam Date: 05/03/2022 1:11 PM Exam Location: [facility] Patient Status: Inpatient Admit Date: 05/03/2022 Staff Ordering Physician: Andreina iSms Senior Recruiter: Estephanie Hernandez RDCS Attending Provider: Tong Ovalles MD Referring Physician: Levi VENCES; Exam Type: CA echo doppler color flow Study Info Indications - Severe pulmonary HTN and Acute Resp failure Complete two-dimensional, color flow and Doppler transthoracic echocardiogram is performed. Summary 1. Complete two-dimensional, color flow and Doppler transthoracic echocardiogram is performed. 2. Left ventricular chamber dimension is normal. 3. Left ventricular systolic function is normal, estimated at 65-70%. 4. There is mildly increased left ventricular wall thickness. 5. The left ventricular diastolic function is grade I diastolic dysfunction. 6. E/e' 12 is mildly elevated. 7. Right ventricular chamber dimension is mildly enlarged. 8. Left atrial chamber dimension is mildly enlarged. 9. Right atrial chamber dimension is severely enlarged. 10. There is mild aortic valve sclerosis. 11. The mitral valve has moderately calcified annulus. 12. There is moderate tricuspid valve regurgitation. 13. Severe pulmonary hypertension, estimated pulmonary arterial systolic pressure is 84 mmHg. 14. There is trace pulmonic regurgitation. 15. Dilated inferior vena cava with <50% collapse upon inspiration consistent with significantly elevated right atrial pressure, 15 mmHg. 16. There is trivial pericardial effusion. Left Ventricle E/e' 12 is mildly elevated. Left ventricular chamber dimension is normal. Left ventricular systolic function is normal, estimated at 65-70%. There is mildly increased left ventricular wall thickness. The left ventricular diastolic function is grade I diastolic dysfunction. Right Ventricle Right ventricular systolic function is normal based on normal TAPSE 2.2 cm. Right ventricle is not well visualized. Right ventricular chamber dimension is mildly enlarged. Left Atria Left atrial chamber dimension is mildly enlarged. Right Atria Right atrial chamber dimension is severely enlarged. Aortic Valve The aortic valve is trileaflet. There is mild aortic valve sclerosis. There is no aortic valve stenosis. There is no aortic valve regurgitation. Pulmonic Valve There is trace pulmonic regurgitation. Mitral Valve The mitral valve has moderately calcified annulus. There is no mitral valve stenosis. There is no mitral valve regurgitation. Tricuspid Valve There is moderate tricuspid valve regurgitation. Severe pulmonary hypertension, estimated pulmonary arterial systolic pressure is 84 mmHg. Pericardium/Pleural There is trivial pericardial effusion. Inferior Vena Cava Dilated inferior vena cava with <50% collapse upon inspiration consistent with significantly elevated right atrial pressure, 15 mmHg. Aorta The aortic root size at the sinus of Valsalva is normal. Left Ventricular Outflow Tract Name Value Normal LVOT 2D LVOT Diameter
--- NOTE | ~2022-05-03 | XR_ITS ---
EXAMINATION: XR chest 1V portable DATE: 05/16/2022 09:06 INDICATION: COVID-19 pneumonia. TECHNIQUE: A single frontal view of the chest was obtained. COMPARISON: Chest single view 05/06/2022, chest CT 11/24/2021 FINDINGS: There is a diffuse interstitial pattern in the lungs. There are airspace opacities in the l ower lung zones. No pleural effusion or pneumothorax. Cardiomegaly is noted. The central pulmonary ar teries are enlarged, consistent with pulmonary arterial hypertension. IMPRESSION: 1. Stable diffuse lung disease, consistent with mild pulmonary edema versus atypical pneumonia. 2. Cardiomegaly. Reviewed, dictated and finalized at location A. IMPRESSION: 1. Stable diffuse lung disease, consistent with mild pulmonary edema versus aty pical pneumonia. 2. Cardiomegaly.
--- NOTE | ~2022-05-03 | XR_ITS ---
XR chest 1V portable 05/06/2022 10:56 Indication: Hypoxia Procedure: AP portable chest Comparison: Comparison to multiple prior studies sequentially, with oldest reviewed study dated 11/19. Findings: Cardiomegaly with pulmonary edema. No significant effusion. There is a nodular density in t he right upper lobe overlying the right second rib. No significant effusion or pneumothorax. No acute osseous abnormality. Impression: 1: Cardiomegaly with interstitial edema without significant change. 2: Nodular density right upper thorax. Cannot exclude parenchymal nodule. Consider follow-up CT. Reviewed, dictated and finalized at location A. Impression: 1: Cardiomegaly with interstitial edema without significant change. 2: Nodular density right upper thorax. Cannot exclude parenchymal nodule. Cons ider follow-up CT.
--- NOTE | ~2022-05-03 | XR_ITS ---
EXAMINATION: XR chest 1V portable DATE: 05/03/2022 08:47 INDICATION: Hypoxic. Respiratory failure. TECHNIQUE: frontal view of the chest was obtained. COMPARISON: Chest radiograph dated 12/06/2021 FINDINGS: Pulmonary vascular congestion and indistinct interstitial and patchy airspace opacities in the bilate ral mid and lower lung zones. 12 mm nodular opacity projecting over the right upper lung zone [place] d extends obliquely over the right hemithorax. No pneumothorax. No definitive pleural effusion althou gh the tips of the costophrenic and cardiophrenic angles are excluded from the [id number]. Ultimat robby. Enlargement of the central pulmonary consistent with pulmonary arterial hypertension. Visualized bones and soft tissues are unremarkable. IMPRESSION: 1. Interstitial and airspace opacities in the bilateral mid and lower lung zones and favor pulmonary edema over pneumonia. 2. Cardiomegaly with enlargement of the central pulmonary arteries consistent with pulmonary arterial hypertension.. 3. Chronic 12 mm right upper lobe nodule with macroscopic fat on CT and which has remained stable on chest CT since 09/08/2019 system with hamartoma. Reviewed, dictated and finalized at location A. IMPRESSION: 1. Interstitial and airspace opacities in the bilateral mid and lower lung zone s and favor pulmonary edema over pneumonia. 2. Cardiomegaly with enlargement of the central pulmonary arteries consistent w ith pulmonary arterial hypertension.. 3. Chronic 12 mm right upper lobe nodule with macroscopic fat on CT and which h as remained stable on chest CT since 09/08/2019 system with hamartoma.
--- NOTE | 2022-05-03 08:32 | ECG_ITS ---
Measurements Intervals [place] Rate: 76 P: 69 MN: 189 QRS: 30 QRSD: 94 T: 87 QT: 330 QTc: 373 Interpretive Statements SINUS RHYTHM POSSIBLE LEFT ATRIAL ENLARGEMENT BORDERLINE ST-T WAVE ABNORMALITY- DIFFUSE LEADS BASELINE ARTIFACT- I, AVR, AVL, V1-V6 BORDERLINE ECG Electronically Signed On 05-03-2022 8:51:57 CDT by Jett Hopkins D.O.
[2022-05-03 09:07] LABS: Alveolar/Arterial O2 Gradient 240.2 mmHg; Base Excess ABG -5.3 mEq/l (+/-2.0); Fractional Inspired Oxygen 44 %; HCO3 ABG 18.3 mEq/l (22.0-26.0); Methemoglobin ABG 0.7 %THb (0-1.5); Oxygen Content ABG 6.6 %vol (16.0-22.0); PCO2 ABG 27.5 mmHg (35.0-45.0); PO2 FiO2 Ratio Arterial Blood 0.96 %; Reduced Hemoglobin 27.3 %THb (0-5.0)
[2022-05-03 09:08] LABS: PO2 ABG 42.2 mmHg (80.0-100.0)
[2022-05-03 09:09] LABS: Oxygen Saturation ABG 80.9 % (95.0-100.0); Total Hemoglobin 6.6 g/dL (12.0-18.0)
[2022-05-03 09:14] LABS: Basophils Percent Auto 0.2 % (0.2-1.2); Eosinophils Percent Auto 0.1 % (0-4.4); Immature Granulocyte Absolute 0.16 K/mm3 (0.00-0.031); Immature Granulocyte Percent A 1.5 % (0-0.5); Immature Platelet Fraction Pct 6.5 % (0.9-11.2); Lymphocytes Percent Auto 10.3 % (18.3-44.2); Mean Corpuscular HGB Conc 28.9 g/dl (32-36); Mean Corpuscular Hemoglobin 19.1 pg (26-34); Mean Corpuscular Volume 66.1 fl (80-100); Monocytes Absolute Auto 0.6 K/mm3 (0.1-0.6); Monocytes Percent Auto 5.9 % (2.6-8.5); Neutrophils Absolute Auto 8.7 K/mm3 (1.3-6.7); Nucleated Red Blood Cells Absolute Auto 0.2 K/mm3 (0.0-0.012); Nucleated Red Blood Cells Perc 1.7 % (0.0-0.2); Platelet Count Result 266 k/mm3 (150-375); Red Blood Count 2.98 M/mm3 (4.2-5.4); Red Cell Distribution Width 21.9 % (11.5-14.5); White Blood Count 10.7 K/mm3 (4.5-10.0)
[2022-05-03 09:22] LABS: Alanine Aminotransferase 152 U/L (6-35); Alkaline Phosphatase 235 U/L (38-126); Anion Gap 17 mmol/L (8-16); Aspartate Amino Transferase 375 U/L (14-36); Bilirubin,Total 1.1 mg/dL (0.2-1.3); Blood Urea Nitrogen 115 mg/dL (7-17); Calcium 9.1 mg/dL (8.4-10.2); Carbon Dioxide 19 mmol/L (22-30); Chloride 102 mmol/L (98-107); Estimated Glomerular Filt Rate 19; Glucose 146 mg/dL (65-110); Potassium 4.8 mmol/L (3.4-5.0); Sodium 138 mmol/L (137-145)
[2022-05-03 09:24] LABS: Lactic Acid Reflex 3.8 mmol/L (0.7-2.0)
[2022-05-03 09:36] LABS: NT Pro B Type Natriuretic Pept 10500 pg/mL (5-100); Troponin I 0.086 ng/mL (0.000-0.034)
[2022-05-03] MEDS: ASPIRIN 81 MG CHEWABLE TABLET 324 MG PO (09:42)
[2022-05-03 09:46] LABS: Hematocrit 19.7 % (37.0-47.0)
[2022-05-03 09:47] LABS: Hemoglobin 5.7 g/dL (12.0-15.0); Hypochromasia 2+ (NORMAL); Platelet Estimate Adequate (Adequate)
[2022-05-03 09:48] LABS: Anisocytosis 1+ (NORMAL); Poikilocytosis 1+ (NORMAL); SARS-CoV-2 RNA PCR Positive
[2022-05-03] MEDS: ALBUTEROL SULFATE NEB 2.5 MG/3 ML INH 15 MG INHALATION (10:02)
[2022-05-03] MEDS: IPRATROPIUM BR 0.02% INH SOLN 0.5 MG/2.5 ML VIAL 1 MG INHALATION (10:03)
[2022-05-03] MEDS: SODIUM CHLORIDE 0.9% IV 250 ML 30 ML IV CONT (10:58)
--- NOTE | 2022-05-03 11:03 | PM.IMHP ---
H&P: HPI History of Present Illness Date/Time: 05/03/22 1025 Chief Complaint: Dyspnea and Weakness Narrative: This chronically ill 62-year-old female patient with significant past medical history of congestive heart failure, COPD, obstructive sleep apnea, chronic respiratory failure, chronic oxygen therapy, cirrhosis of liver, and renal insufficiency is brought to the emergency room today by EMS with complaints of having a cough for approximately 1 week with increasing shortness of breath that is worse with any activity.? Over the past 3 days she reports increasing weakness and being unable to stand.? Today she was attempting to ambulate to the restroom and could not get there and therefore called EMS for support in transport to the emergency room.? Patient was requiring 15 L non-rebreather to maintain saturations at 90% in route to the ER.? Upon arrival to the ER workup was started patient is found to be profoundly anemic with hemoglobin of 5.7 and hematocrit of 19.7.? In addition she has elevated lactic acid of 3.8, AST of 375, ALT of 152, alk-phos of 235 and a positive COVID test.? Patient's troponin is also noted to be elevated at 0.086.? In review of previous troponin values, they are not routinely elevated even in conjunction with elevated creatinine.? Patient does complain of some mild left-sided chest pain without any radiation and no numbness and/or tingling of extremities.? She has no nausea and no diaphoresis.? Chest x-ray showed interstitial and airspace opacities with cardiomegaly and enlargement of the central pulmonary artery consistent with pulmonary hypertension.? This patient is known to have a chronic history of pulmonary hypertension that required transfer to a tertiary center in November of this year with pulmonary arterial pressure of 69 and grade 1 diastolic dysfunction according to echocardiogram performed at that time.? Patient is currently on high-flow oxygen to maintain saturations, and is being admitted to the hospital for further workup for her issues at this time. Review of Systems Review of Systems: All systems reviewed & are unremarkable except as noted in HPI and below Constitutional: Constitutional: Reports weakness (Generalized) Cardiovascular: Cardiovascular: Denies chest pain Respiratory: Respiratory: Reports as per HPI, Reports cough, Reports dyspnea and Reports dyspnea on exertion Gastrointestinal: Gastrointestinal: Denies abdominal pain, Denies melena, Denies hematochezia, Denies constipation and Denies nausea PMFSH Past Medical History Medical History Adrenal mass Chronic anemia Chronic hypoxemic respiratory failure Chronic obstructive pulmonary disease Congestive heart failure Diabetes mellitus Hyperlipidemia Hypertension Lung nodule 11 mm Tobacco abuse 35 pack year, quit Aug 2019. Surgical History Surgical History History of 3 sections History of appendectomy History of cholecystectomy History of colonoscopy with polypectomy History of esophagogastroduodenoscopy Family History Family History Grandparent Congestive heart failure Mother HTN (hypertension) with goal to be determined Hyperlipidemia Cancer Sibling Age: 55 HTN (hypertension) with goal to be determined Asthma Lupus Sibling Age: 52 Diabetes mellitus Heart disease Social History Social History Social History: Lives in [place]. 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 Has 3 children. Smoked up to 2 packs of cigarettes a day for 40 years. Occasional alcohol use in moderation. Smoking packs per day: 2 Smoking cigarettes per day: 40.0 Years smoked: 30 Smoking pack-years: 60.00 Smoking status: Nev
[2022-05-03 11:29] LABS: Device NASAL CANNULA
[2022-05-03 12:00] LABS: Iron 44 ug/dL (37-170)
[2022-05-03 12:07] LABS: Reflex Lactic Acid Yes or No Add Lactic
[2022-05-03 12:12] LABS: Percent Iron Saturation 12 % (20-50)
--- NOTE | 2022-05-03 12:17 | ED.SOB ---
HPI - SOB/Dyspnea General Chief Complaint: Shortness of Breath/Dyspnea Stated Complaint: weakness Time Seen by Provider: 05/03/22 08:32 History of Present Illness HPI Narrative: 62-year-old female with history of COPD, CHF, anemia presents here with difficulty breathing for last few days, her tested positive for COVID about a week ago and had just been discharged home. She is stating she feels unwell, no fevers or chills, but does have a slight cough, no nausea or vomitin or diarrhea, states that she has been having some dark stools. Related Data Home Medications Medication Instructions Recorded Confirmed aspirin 81 mg tablet,delayed 81 mg PO DAILY 09/08/19 11/19/21 release (Aspir-) atorvastatin 40 mg tablet 40 mg PO DAILY 09/08/19 11/19/21 ezetimibe 10 mg tablet 10 mg PO DAILY 09/08/19 11/19/21 polysaccharide iron complex 150 mg 150 mg PO BID 07/11/20 11/19/21 iron capsule (Poly-Iron) metformin 500 mg tablet,extended 500 mg PO DAILY 04/07/21 11/19/21 release 24 hr amlodipine 10 mg tablet (Norvasc) 10 mg PO DAILY 10/02/21 11/19/21 umeclidinium 62.5 mcg-vilanterol 1 inh inhalation DAILY 10/02/21 11/19/21 25 mcg/actuation powdr for inhalation (Anoro Ellipta) Allergies Allergy/AdvReac Type Severity Reaction Status Date / Time Penicillins Allergy Hives Verified 11/19/21 12:59 Sulfa (Sulfonamide Allergy Itching Verified 11/19/21 12:59 Antibiotics) Review of Systems Review of Systems: CONST: Malaise HEENT: sore throat C/V: No chest pain RESP: Cough and difficulty breathing GI: Dark stools : No dysuria. M/S: Body aches SKIN: No rash. NEURO: [No headache or focal numbness or weakness] PSYCH: [No depression] FORMERLY [facility], 1928–1983 Past Medical History Medical History Adrenal mass Chronic anemia Chronic hypoxemic respiratory failure Chronic obstructive pulmonary disease Congestive heart failure Diabetes mellitus Hyperlipidemia Hypertension Lung nodule 11 mm Tobacco abuse 35 pack year, quit Aug 2019. Surgical History Surgical History History of 3 sections History of appendectomy History of cholecystectomy History of colonoscopy with polypectomy History of esophagogastroduodenoscopy Family History Family History Grandparent Congestive heart failure Mother HTN (hypertension) with goal to be determined Hyperlipidemia Cancer Sibling Age: 55 HTN (hypertension) with goal to be determined Asthma Lupus Sibling Age: 52 Diabetes mellitus Heart disease Social History Social History Social History: Lives in [place]. 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 Has 3 children. Smoked up to 2 packs of cigarettes a day for 40 years. Occasional alcohol use in moderation. Smoking packs per day: 2 Smoking cigarettes per day: 40.0 Years smoked: 30 Smoking pack-years: 60.00 Smoking status: Never smoker Tobacco type: cigarettes Smoking end date: 10/30/18 Alcohol intake: never Substance use: never Spiritual care concerns: No Exam Narrative: EXAMINATION OF ORGAN SYSTEMS/BODY AREAS: Constitutional: Vital signs per nursing GENERAL: Respiratory distress and tachypnea HEAD: Normal with no signs of head trauma. EYES: EOMI, conjunctiva normal ENT: Hearing grossly intact LUNGS: Labored respirations HEART: [Regular rate and rhythm] ABD: [Soft], [nontender to palpation] EXT: Normal range of motion SKIN: [No rashes or lesions.] NEURO: [Alert and oriented x 3. No gross focal sensory or strength deficits.] PSYCH: Normal affect Course Vital Signs Vital signs: Vital Signs Temperature 97.7 F 05/03/22 08:30 Pulse Rate 79 05/03/22 08:30 Respiratory Rate 20 05/03/22 08:30 Blood Pressure 97
[2022-05-03 12:26] LABS: Immature Reticulocyte Fraction 43.5 % (3.0-15.9); Reticulocyte Hemoglobin Conten 24.9 pg (28.2-35.7); Reticulocyte Percent 1.49 % (0.7-4.3); Reticulocytes Absolute 0.04 B/L (32.2-175.7)
[2022-05-03 12:39] LABS: CRP 5.9 mg/dL (<1.0); Magnesium 2.4 mg/dL (1.6-2.3)
[2022-05-03 13:06] LABS: Lactic Acid 1.7 mmol/L (0.7-2.0)
[2022-05-03 13:27] LABS: Troponin I 0.086 ng/mL (0.000-0.034)
--- NOTE | 2022-05-03 13:39 | PC.NURSE ---
Patient tolerating transfusion well. NO s/s of reaction. Will continue to monitor.
--- NOTE | 2022-05-03 15:45 | ADMGEN ---
This patient, Maura Hill, was admitted to IMU Room 204-01. Patient/family oriented to hospital policies and general routines including ID bracelet, bed and alarms, visiting hours, pain management, procedures, bathroom and other care routines, personal items, smoking policy, room service/diet, and visiting hours. Information on how to activate the Rapid Response Team has been discussed. Patient/Family are encouraged to report perceived risks to care and to ask questions if they do not understand what they are told or what they should do.
[2022-05-03 17:08] LABS: Troponin I 0.093 ng/mL (0.000-0.034)
[2022-05-03] MEDS: TUBING, BLOOD PLUM PUMP TUBING 1 EACH XX (17:51)
[2022-05-03] MEDS: FUROSEMIDE INJ 100 MG/10 ML VIAL 60 MG IV PUSH (17:52)
[2022-05-03] MEDS: SODIUM CHLORIDE 0.9% IV 250 ML 30 ML (17:53)
[2022-05-03 18:06] LABS: Alveolar/Arterial O2 Gradient 334.8 mmHg; Base Excess ABG -5.5 mEq/l (+/-2.0); Fractional Inspired Oxygen 60 %; HCO3 ABG 18.8 mEq/l (22.0-26.0); Oxygen Content ABG 8.9 %vol (16.0-22.0); Oxygen Saturation ABG 90.3 % (95.0-100.0); PCO2 ABG 31.9 mmHg (35.0-45.0); PO2 ABG 57.9 mmHg (80.0-100.0); PO2 FiO2 Ratio Arterial Blood 0.97 %; Total Hemoglobin 7.5 g/dL (12.0-18.0); pH ABG 7.389 (7.350-7.450)
[2022-05-03 18:07] LABS: Device BIPAP; Modified Allen's Test Pass; Oxyhemoglobin 83.9 % THb (90.0-100.0); Site Drawn RIGHT RADIAL
[2022-05-03 18:08] LABS: Expiratory Pressure 6 cmH2O; Inspiratory Pressure 12 cmH2O
[2022-05-03 22:08] LABS: Basophils Percent Auto 0.3 % (0.2-1.2); Eosinophils Absolute Auto 0.6 K/mm3 (0-0.3); Eosinophils Percent Auto 4.5 % (0-4.4); Hematocrit 29.6 % (37.0-47.0); Hemoglobin 8.7 g/dL (12.0-15.0); Immature Granulocyte Absolute 0.25 K/mm3 (0.00-0.031); Immature Granulocyte Percent A 1.8 % (0-0.5); Immature Platelet Fraction Pct 6.7 % (0.9-11.2); Lymphocytes Percent Auto 10.6 % (18.3-44.2); Mean Corpuscular HGB Conc 29.4 g/dl (32-36); Mean Corpuscular Hemoglobin 20.9 pg (26-34); Mean Corpuscular Volume 71.2 fl (80-100); Monocytes Absolute Auto 0.9 K/mm3 (0.1-0.6); Monocytes Percent Auto 6.5 % (2.6-8.5); Neutrophils Absolute Auto 10.8 K/mm3 (1.3-6.7); Neutrophils Percent Auto 76.3 % (45.5-73.1); Nucleated Red Blood Cells Absolute Auto 0.1 K/mm3 (0.0-0.012); Nucleated Red Blood Cells Perc 0.8 % (0.0-0.2); Platelet Count Result 229 k/mm3 (150-375); Red Blood Count 4.16 M/mm3 (4.2-5.4); Red Cell Distribution Width 24.7 % (11.5-14.5); White Blood Count 14.2 K/mm3 (4.5-10.0)
[2022-05-03 22:22] LABS: Anisocytosis 1+ (NORMAL); Hypochromasia 1+ (NORMAL); Platelet Estimate Adequate (Adequate); Poikilocytosis 1+ (NORMAL)
[2022-05-03 22:23] LABS: Atypical Lymphocytes Present; Burr Cells 1+ (NORMAL); Microcytosis 1+ (NORMAL); Ovalocytes 1+ (NORMAL); Target Cells 1+ (NORMAL)
[2022-05-04] VITALS (19 sets, daily range): BP systolic 83–120; BP diastolic 53–77; PULSE 64–71; RESP 16–22; TEMP 36.2–36.7; O2SAT 93–99
[2022-05-04 05:46] LABS: Basophils Percent Auto 0.1 % (0.2-1.2); Hematocrit 24.7 % (37.0-47.0); Hemoglobin 7.5 g/dL (12.0-15.0); Immature Granulocyte Absolute 0.16 K/mm3 (0.00-0.031); Immature Granulocyte Percent A 1.2 % (0-0.5); Immature Platelet Fraction Pct 5.7 % (0.9-11.2); Lymphocytes Absolute Auto 1.08 K/mm3 (0.9-3.2); Mean Corpuscular HGB Conc 30.4 g/dl (32-36); Mean Corpuscular Hemoglobin 21.1 pg (26-34); Mean Corpuscular Volume 69.4 fl (80-100); Monocytes Absolute Auto 0.5 K/mm3 (0.1-0.6); Monocytes Percent Auto 3.6 % (2.6-8.5); Neutrophils Absolute Auto 11.7 K/mm3 (1.3-6.7); Neutrophils Percent Auto 87.1 % (45.5-73.1); Nucleated Red Blood Cells Absolute Auto 0.1 K/mm3 (0.0-0.012); Nucleated Red Blood Cells Perc 0.7 % (0.0-0.2); Platelet Count Result 243 k/mm3 (150-375); Red Blood Count 3.56 M/mm3 (4.2-5.4); Red Cell Distribution Width 24.1 % (11.5-14.5); White Blood Count 13.5 K/mm3 (4.5-10.0)
[2022-05-04 05:53] LABS: INR 1.7
[2022-05-04 05:54] LABS: Partial Thromboplastin Time 34.5 SECONDS (22.3-36.8)
[2022-05-04 05:55] LABS: Alanine Aminotransferase 184 U/L (6-35); Albumin Level 3.7 g/dL (3.5-5.1); Alkaline Phosphatase 224 U/L (38-126); Anion Gap 13 mmol/L (8-16); Aspartate Amino Transferase 380 U/L (14-36); Bilirubin,Total 0.8 mg/dL (0.2-1.3); Blood Urea Nitrogen 119 mg/dL (7-17); Calcium 8.5 mg/dL (8.4-10.2); Carbon Dioxide 21 mmol/L (22-30); Chloride 105 mmol/L (98-107); Estimated CRCL calculation 28 ml/min; Estimated Glomerular Filt Rate 24; Glucose 194 mg/dL (65-110); Lactate Dehydrogenase 1659 U/L (313-618); Potassium 4.4 mmol/L (3.4-5.0); Sodium 139 mmol/L (137-145)
[2022-05-04 06:08] LABS: Atypical Lymphocytes Present; Band Neutrophils Percent 2 % (0-6); Hypochromasia 2+ (NORMAL); Lymphocytes Absolute Manual 0.67 K/mm3 (1.1-4.5); Macrocytosis 1+ (NORMAL); Microcytosis 1+ (NORMAL); Neutrophils Absolute Manual 12.82 K/mm3 (1.7-7.2); Neutrophils Percent Manual 93 % (46-73); Platelet Estimate Adequate (Adequate); Total Cells Counted 100
[2022-05-04] MEDS: UMECLIDINIUM BROMIDE 62.5 MCG ELLIPTA 1 PUFF INHALATION (08:11)
[2022-05-04 11:04] LABS: Alveolar/Arterial O2 Gradient 278.4 mmHg; Base Excess ABG -1.2 mEq/l (+/-2.0); Fractional Inspired Oxygen 60 %; HCO3 ABG 22.5 mEq/l (22.0-26.0); Oxygen Content ABG 11.7 %vol (16.0-22.0); Oxygen Saturation ABG 98.3 % (95.0-100.0); Oxyhemoglobin 96.2 % THb (90.0-100.0); PCO2 ABG 33.3 mmHg (35.0-45.0); PO2 ABG 112.8 mmHg (80.0-100.0); PO2 FiO2 Ratio Arterial Blood 1.88 %; Total Hemoglobin 8.5 g/dL (12.0-18.0); pH ABG 7.448 (7.350-7.450)
[2022-05-04 11:06] LABS: Device HIGH FLOW THERAPY; Modified Allen's Test Pass; Site Drawn RIGHT RADIAL
[2022-05-04] MEDS: FUROSEMIDE INJ 100 MG/10 ML VIAL 60 MG IV PUSH (11:09)
[2022-05-04] MEDS: ATORVASTATIN 40 MG TABLET PO (11:15)
[2022-05-04] MEDS: EZETIMIBE 10 MG TABLET PO (11:15)
[2022-05-04] MEDS: traMADol HCL (*CRX) 25 MG TABLET PO (11:15)
--- NOTE | 2022-05-04 12:24 | PM.CNPUL ---
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 She has multiple abnormal lab studies consistent with COVID pneumonia with sepsis. She is not a candidate for remdesivir due to her acute on chronic renal failure BUN is 115 creatinine 3.0, CXR shows patchy bilateral infiltrates, and she is requiring AirVo with moderately high amounts of O2, 60 L/min and 60%. She is normally on 4 L/min at baseline, so her current need is not unexpected. She has had 1 covid vaccination. Baricitinib is an option for severe disease, although her creat clearance is really low, 24, and has chronic lung disease. She is not a good candidate for this medicaiton. (2) Acute on chronic respiratory failure with hypoxia and hypercapnia: Code(s): J96.21 - Acute and chronic respiratory failure with hypoxia; J96.22 - Acute and chronic respiratory failure with hypercapnia Status: Acute Assessment and Plan: She has long standing chronic hypoxemic respiratory failure, was on O2 4 L/min and 5 L/min with exertion before Oct 2020 admission; she is on higher O2 with acute episode of COVID pneumonia. She has the additional issue of decompensated cardiac function, defer to Dr Hopkins the exact degree of problme; she has diastolic problem and apparently right heart failure which is acute on chronic. Untreated GUANACO is making these problems worse. She has a PAP machine, possibly a NPPV at home, does not use. (3) Acute on chronic kidney failure: Code(s): N17.9 - Acute kidney failure, unspecified; N18.9 - Chronic kidney disease, unspecified Status: Acute Assessment and Plan: BUN and creat up, way out of range from her usual baseline, 115/3.0 now, usually 20-40 BUN in creat 1.4 - 1.9 over last 6 months. She is making excellent urine after Lasix today, however BP fell. (4) Pulmonary hypertension: Code(s): I27.20 - Pulmonary hypertension, unspecified Status: Acute Assessment and Plan: Severe pulmonary hypertension on echo early in 2021, PA pressure 69 mmHg, no information about her treatment at [facility] in November 2021. Echo yesterday = PA pressure 84mmHg. Multifactoral causes, COPD, chronic resp failure, CHF, and PFO. Not sure is she had Rx for this at [facility] in Nov. (5) Chronic obstructive pulmonary disease: Code(s): J44.9 - Chronic obstructive pulmonary disease, unspecified Status: Acute Assessment and Plan: She has emphysema on CT imaging, has had increased pC02 on occasion, not this admission. She can continue LAMA inhaled, does not need inhaled steroid while she is on dexamethasone. She has been treated with 3 long acting medications at home. She has not had an office visit since 2011 due to multiple admissions since then. Last PFT 09/15/2020; FEV1 61%, 1.56 L; FVC 61%, 2.12 L; FEV1/FVC = 73%; TLC 446%, RV 24%, RV/TLC 20%, Raw 229; DLCO 24%, DLCO/VA 71%. (6) Obstructive sleep apnea: Code(s): G47.33 - Obstructive sleep apnea (adult) (pediatric) Status: Acute Assessment and Plan: Last sleep study 08/13/2020 AHI 11.7, severely hypoxemic on baseline, optimal pressure BiPAP 12/7 with 6 L of oxygen She is not compliant with PAP at
[2022-05-04] MEDS: polyethylene glycoL 3350 17 GM POWD.PACK PO (13:58)
[2022-05-04] MEDS: GABAPENTIN 100 MG CAPSULE PO ×2 (13:58→22:00)
--- NOTE | 2022-05-04 13:59 | PM.CNCAR ---
Assessment and Plan Assessment and plan (1) Acute exacerbation of congestive heart failure: Code(s): I50.9 - Heart failure, unspecified Status: Acute Assessment and Plan: Due to high output failure from anemia, acute on chronic diastolic heart failure, pulm hypertension. Echo shows EF 65%, mild LVH, grade I diastolic dysfunction (E/e' 12), mod TR, severe BASILIO, mild RVE, mild LAE, severe pulm hypertension with RVSP 84 mmHg. Continue with diuresis with Lasix 60 mg IV BID. Transfuse PRBC as needed. (2) Acute exacerbation of chronic obstructive pulmonary disease: Code(s): J44.1 - Chronic obstructive pulmonary disease with (acute) exacerbation Status: Acute Assessment and Plan: Pulm following. (3) Pneumonia due to 2019-nCoV: Code(s): U07.1 - COVID-19; J12.82 - Pneumonia due to coronavirus disease 2019 Status: Acute Assessment and Plan: Management as per hospitalist. (4) Pulmonary hypertension: Code(s): I27.20 - Pulmonary hypertension, unspecified Status: Acute Assessment and Plan: Obtain medical records from [facility] in Nov 2021. 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 (6) Elevated troponin: Code(s): R77.8 - Other specified abnormalities of plasma proteins Status: Acute Assessment and Plan: This could be multifactorial including Covid pneumonia, acute on chronic diastolic heart failure, severe pulm hypertension, COPD exac, acute anemia. Doubt this is related to ACS with no wall motion abnormalities. (7) Hyperlipidemia: Qualifiers: Hyperlipidemia type: unspecified Qualified Code(s): E78.5 - Hyperlipidemia, unspecified Code(s): E78.5 - Hyperlipidemia, unspecified Status: Chronic Assessment and Plan: On Atorvastatin and Zetia. History of Present Illness History of Present Illness Consult date/time: 05/04/22 13:59 Consult reason: congestive heart failure Reason For Visit: COVID +,Hypoxic,CHF,COPD,Anemic Narrative: 62 yr old woman who is my regular cardiology patient presents to ER with sob. She has a history of COPD (sees Alvarado Mcfadden) on home oxygen at 6 l/m, quit smoking in Aug 2019, GUANACO on CPAP, hypertension, dyslipidemia, DM, diastolic heart failure, severe pulm hypertension, chronic anemia, PFO. ? She was here in Nov 2021 and transferred to [facility] for management of pulm hypertension with PFO. I do not have information on her hospitalization there. States she has orthopnea, MULLIGAN with minimal exertion and edema of feet for last 1 week.? She can walk minimal distance just in her house with a walker due to MULLIGAN and is on 6 l/m oxygen all the time.? She was found to be profoundly anemic with Hb 5.7, received blood transufsions, she has covid infection, CXR shows pulm edema with elevated NTpro BNP at 10,500 and elevated troponin up to 0.1. Denies chest pain, palpitations, dizziness. Cardiovascular Procedures Echo/MUGA:: 11/20/21 Echo: EF 65-70%, grade I diastolic dysfunction (E/e' 15), mod LVH, mild LAE, mod BASILIO, severe posterior MAC, mild-mod TR, RVSP 69 mmHg. Subsequent limited echo shows PFO. 07/14/21 Echo: EF 65-70%, grade I diastolic dysfunction, mod LVH, mild RVE, mod BASILIO, mild TR, RVSP 46 mmHg. 07/13/20 Echo: EF >70%, mild LVH, mild LAE, RVSP 66 mmHg. Electrophysiology:: 11/19/21 EKG: Sinus rhtyhm, IVCD, borderline T wave in high lateral leads. 07/14/21 EKG: Sinus rhythm, IRBBB, borderline T wave in lat/high lat leads. 07/13/20: 2 day event monitor: Sinus rhythm, HR range 50-120 bpm; average 74 bpm. 07/11/20 EKG: Sinus rhythm with
--- NOTE | 2022-05-04 17:08 | PM.IMPN ---
Progress Note: A&P Assessment and Plan (1) Acute and chronic respiratory failure: Code(s): J96.20 - Acute and chronic respiratory failure, unspecified whether with hypoxia or hypercapnia Status: Acute Assessment and Plan: Secondary to COVID and heart failure Continues on 15 L and 60% FiO2 on Airvo Dexamethasone 6 mg daily, day 2 of 10 today, started May 03, 2022 Continue azithromycin and Rocephin for possible underlying pneumonia, day 2 (2) Acute on chronic kidney failure: Code(s): N17.9 - Acute kidney failure, unspecified; N18.9 - Chronic kidney disease, unspecified Status: Acute Assessment and Plan: Nephrology consultation pending (3) Pulmonary hypertension: Code(s): I27.20 - Pulmonary hypertension, unspecified Status: Acute Assessment and Plan: Pulmonary consultation pending (4) Chronic anemia: Code(s): D64.9 - Anemia, unspecified Status: Acute Assessment and Plan: Anemia with a hemoglobin of 5.7 on admission, 8.7 status post 2 units, down to 7.5 today, fecal occult blood test pending (5) Acute exacerbation of congestive heart failure: Code(s): I50.9 - Heart failure, unspecified Status: Acute Assessment and Plan: Appreciate cardiology consultation, continue diuresis with Lasix IV (6) COVID-19: Code(s): U07.1 - COVID-19 Status: Acute Assessment and Plan: Continue dexamethasone, not a candidate for remdesivir Subjective Date/time seen: 05/04/22 17:08 Interval history: Patient feeling more comfortable than yesterday but still short of breath. She is on noninvasive ventilation at 50 L and 60% FiO2. No overnight events, no fevers or chills. She denies nausea vomiting or diarrhea. Review of Systems Review of Systems: 12 point review of systems was assessed and was negative except as noted in the HPI Exam Narrative: General: No acute distress, alert and oriented per baseline HEENT: Atraumatic, normocephalic, mucous membranes moist CV: Regular rate and rhythm, S1, S2 Lungs: Diminished breath sounds, coarse throughout, very diminished at bases Abdomen: Soft, nontender, nondistended Extremities: Normal to inspection Skin: No rashes noted, no lesions or wounds seen Psych: Euthymic, normal affect Objective Data Vital Signs Vital Signs: Vital Signs - 24 hr 05/03/22 17:34 05/03/22 18:00 05/03/22 19:00 Temperature 97.6 F 97.6 F 96.9 F L Pulse Rate 81 74 69 Respiratory Rate 30 H 19 20 Blood Pressure 114/70 122/73 117/67 Pulse Oximetry 93 96 91 Oxygen Delivery Oxygen Flow Rate Fraction of Inspired Oxygen 05/03/22 18:00 05/03/22 19:43 05/03/22 19:00 Temperature 96.9 F L 97.6 F Pulse Rate 73 69 68 Respiratory Rate 20 18 Blood Pressure 117/67 121/74 Pulse Oximetry 91 92 Oxygen Delivery Oxygen Flow Rate Fraction of Inspired Oxygen 05/03/22 20:00 05/03/22 20:00 05/03/22 22:50 Temperature 97.9 F 98.0 F Pulse Rate 60 66 Respiratory Rate 20 22 H Blood Pressure 125/70 110/71 Pulse Oximetry 92 91 100 Oxygen Delivery BiPAP Oxygen Flow Rate Fraction of Inspired Oxygen 60 05/03/22 21:30 05/04/22 00:21 05/04/22 00:00 Temperature Pulse Rate 64 64 Respiratory Rate 19 Blood Pressure Pulse Oximetry 96 96 96 Oxygen Delivery BiPAP High Flow Therapy with Na High Flow Therapy with Na Oxygen Flow Rate 50 50 Fraction of Inspired Oxygen 60 60 05/03/22 20:00 05/03/22 22:00 05/04/22 00:00 Temperature Pulse Rate 67 64 66 Respiratory Rate Blood Pressure Pulse Oximetry Oxygen Delivery Oxygen Flow Rate Fraction of Inspired Oxygen 05/04/22 02:00 05/04/22 03:22 05/04/22 04:00 Temperature Pulse Rate 66 64 Respiratory Rate Blood Pressure Pulse Oximetry 93 93 Oxygen Delivery High Flow Therapy with Na High Flow Therapy with Na Oxygen Flow Rate 50 50 Fraction of Inspired Oxygen 60 60 07
--- NOTE | 2022-05-04 17:21 | PM.CNNEP ---
Assessment and Plan Additional Plan 1. Maura has chronic kidney disease. This is due to hypertension, diabetes, vascular disease, and chronic pre renal azotemia. Asked her tricuspid regurgitation has worsened her need for diuretics has increased and her baseline creatinine has increased along with that. She left the hospital with a creatinine around 2.3. This was felt to be a new baseline for her as her swelling was not too bad at this creatinine and the creatinine was relatively stable. Her BUN was only 39 at discharge. At home she has continued the diuretics and her swelling has remained in good shape. In fact this swelling has decreased a bit since the last hospital stay. Now the patient has shortness of breath cough etc. This is all due to COVID pneumonia. In the emergency room her creatinine was 3. Overnight her creatinine decreased to 2.5 with the BUN is still high in the 1-teens. Now she is starting Dexamethasone. At this point I think her kidney function is relatively stable. She is at about her baseline for her creatinine. She was on a lot of diuretics at home and possibly the home dose of diuretics can be decreased because her swelling is so much better and her BUN is so high. Because the Dexamethasone is going to make her BUN rise and she might get uremic just from that I think the best thing to do would be to hold the diuretics. Will hold off on IV fluids for now because of the COVID. She is already on 60% FiO2. She does have COVID so I do not want to over do the hydration so I will just give her 1L of saline tonight and reassess tomorrow morning. 2. The patient has COVID. She is on respiratory isolation and and oxygen. She is getting dexamethasone as well. No Remdesivir because of her low GFR and high liver enzymes. she is on zithromax. 3. The patient has hypertension. Her blood pressure is a little bit soft. This is probably a reflection of her being a little bit on the dry side. 4. The patient has diabetes. She will be on sliding scale and insulin per hospitalists. 5. Liver enzyme elevation. Perhaps something to do with the COVID? 6. CHF due to pulm htn and TR. History of Present Illness Reason for Consult Consult date: 05/04/22 Chief Complaint Chief complaint: COVID +,Hypoxic,CHF,COPD,Anemic History of Present Illness Narrative: Maura is a very pleasant 62-year-old lady who has multiple medical problems including congestive heart failure with pulmonary hypertension and tricuspid regurgitation and chronic swelling, sleep apnea, chronic respiratory failure, cirrhosis of the liver, renal insufficiency, adrenal mass, anemia, diabetes, hypertension, hyperlipidemia, lung nodule which is stable, and former tobacco use. The patient came into the hospital because she had shortness of breath, and cough. This has been going on for a few days. She used to have lots of swelling in her legs but she has not had any swelling lately. She has been not been eating very well and not been drinking very well either. She has not had any fevers or chest pain. She has had progressive weakness and lately she was unable to walk on her own and so was using a wheelchair. This all gradually worsened over the last few days. She came to the ER because of the symptoms. She was assessed in the ER and found to have COVID pneumonia. She was placed on oxygen. She had elevated liver enzymes and so she could not go on Remdesivir so she was placed on Dexamethasone and oxygen and admitted to the hospital. Review of Systems Constitutional: Constitutional: Reports no additional constitutional complaints Eyes: Eyes: Reports no additional eye complaints ENT: Reports system reviewed and no additional complaints, except as documented Cardiovascular: Cardiovascular: Reports no additional cardiovascular complaints Respiratory: Respiratory: Reports no additional respiratory complaints Gastrointestinal: Gastrointes
[2022-05-04] MEDS: POLYSACCHARIDE IRON COMPLEX 150 MG CAPSULE PO (18:06)
[2022-05-04] MEDS: PANTOPRAZOLE 40 MG TABLET PO (18:06)
[2022-05-04 19:24] LABS: Creatinine Urine 61.1 mg/dL; Total Protein Urine Random 13 mg/dL; Ur Ttl Prot Creatinine Ratio 0.21 mg/mg (0-0.20); Urea Random Urine 603 MG/DL
[2022-05-04 19:31] LABS: Sodium Urine Random 35 meq/L
[2022-05-05] VITALS (17 sets, daily range): BP systolic 101–125; BP diastolic 54–78; PULSE 58–74; RESP 14–28; TEMP 36.4–36.6; O2SAT 93–97
[2022-05-05 05:51] LABS: Albumin Level 3.7 g/dL (3.5-5.1); Anion Gap 10 mmol/L (8-16); Blood Urea Nitrogen 115 mg/dL (7-17); Calcium 8.7 mg/dL (8.4-10.2); Carbon Dioxide 23 mmol/L (22-30); Chloride 104 mmol/L (98-107); Estimated CRCL calculation 30 ml/min; Estimated Glomerular Filt Rate 26; Glucose 219 mg/dL (65-110); Phosphorus 4.1 mg/dL (2.5-4.5); Potassium 4.6 mmol/L (3.4-5.0); Sodium 137 mmol/L (137-145)
[2022-05-05] MEDS: GABAPENTIN 100 MG CAPSULE PO ×3 (06:18→21:33)
--- NOTE | 2022-05-05 08:27 | PM.PNCARD ---
Progress Note: A&P Assessment and Plan (1) Acute exacerbation of congestive heart failure: Code(s): I50.9 - Heart failure, unspecified Status: Acute Assessment and Plan: CXR shows mild pulm edema, but clinically appears euvolemic. Due to high output failure from anemia, acute on chronic diastolic heart failure, pulm hypertension.? Echo shows EF 65%, mild LVH, grade I diastolic dysfunction (E/e' 12), mod TR, severe BASILIO, mild RVE, mild LAE, severe pulm hypertension with RVSP [address] Espinal to hold off on diuretics and monitor for volume overload. (2) Acute exacerbation of chronic obstructive pulmonary disease: Code(s): J44.1 - Chronic obstructive pulmonary disease with (acute) exacerbation Status: Acute Assessment and Plan: Pulm following. (3) Pneumonia due to 2019-nCoV: Code(s): U07.1 - COVID-19; J12.82 - Pneumonia due to coronavirus disease 2019 Status: Acute Assessment and Plan: Management per hospitalist. (4) Pulmonary hypertension: Code(s): I27.20 - Pulmonary hypertension, unspecified Status: Acute Assessment and Plan: Reviewed medical records received in fax from [facility] during hospitalization. I did not see anything pertaining to right heart cath or workup related to pulm hypertension. Need to ask for records of right heart cath if it was done. (5) Hyperlipidemia: Qualifiers: Hyperlipidemia type: unspecified Qualified Code(s): E78.5 - Hyperlipidemia, unspecified Code(s): E78.5 - Hyperlipidemia, unspecified Status: Chronic Assessment and Plan: On Atorvastatin and Zetia. (6) Diabetes mellitus: Qualifiers: Diabetes mellitus type: type 2 Diabetes mellitus terminal press operator insulin use: without terminal press operator use Diabetes mellitus complication status: with hyperglycemia Qualified Code(s): E11.65 - Type 2 diabetes mellitus with hyperglycemia Code(s): E11.9 - Type 2 diabetes mellitus without complications Status: Chronic Assessment and Plan: Management as per hospitalist. (7) Elevated troponin: Code(s): R77.8 - Other specified abnormalities of plasma proteins Status: Acute Assessment and Plan: This could be multifactorial including Covid pneumonia, acute on chronic diastolic heart failure, severe pulm hypertension, COPD exac, acute anemia. Doubt this is related to ACS with no wall motion abnormalities. Subjective Date/time seen: 05/05/22 08:27 Denies chest pain or sob. Exam Const: General: cooperative, healthy appearing and comfortable Nutritional Appearance: obese Resp: Auscultation: clear to auscultation bilaterally, no crackles, no rales, no rhonchi and no wheezes Cardio: Jugular venous distension: no JVD Rate: regular rate Rhythm: regular rhythm Heart sounds: no murmurs GI: GI Palp: No abdominal tenderness and Yes Soft to palpation Neuro: General: oriented to person, oriented to place and oriented to time Extrem: Right lower extremity: no edema Left lower extremity: no edema Objective Data Vital Signs Vital Signs: Vital Signs - 24 hr 05/04/22 12:00 05/04/22 12:01 05/04/22 12:00 Temperature 97.6 F Pulse Rate 71 Respiratory Rate 16 Blood Pressure 83/53 L 88/60 L Pulse Oximetry 95 98 Oxygen Delivery High Flow Therapy with Na Oxygen Flow Rate 50 Fraction of Inspired Oxygen 60 05/04/22 16:00 05/04/22 16:00 05/04/22 19:43 Temperature 97.1 F L 97.7 F Pulse Rate 67 68 Respiratory Rate 16 20 Blood Pressure 99/57 L 102/58 L Pulse Oximetry 98 94 99 Oxygen Delivery High Flow Therapy with Na Oxygen Flow Rate 50 Fraction of Inspired Oxygen 60 05/04/22 10:00 05/04/22 12:00 05/04/22 14:00 Temperature Pulse Rate 67 69 69 Respiratory Rate Blood Pressure Pulse Oximetry Oxygen Delivery Oxygen Flow Rate Fraction of Inspired Oxygen 05/04/22 16:00 05/04/22 18:00 05/04/22 23:04 Temperu
[2022-05-05] MEDS: UMECLIDINIUM BROMIDE 62.5 MCG ELLIPTA 1 PUFF INHALATION (10:47)
[2022-05-05] MEDS: EZETIMIBE 10 MG TABLET PO (11:18)
[2022-05-05] MEDS: POLYSACCHARIDE IRON COMPLEX 150 MG CAPSULE PO ×2 (11:18→18:04)
[2022-05-05] MEDS: PANTOPRAZOLE 40 MG TABLET PO ×2 (11:18→18:04)
[2022-05-05] MEDS: polyethylene glycoL 3350 17 GM POWD.PACK PO (11:20)
--- NOTE | 2022-05-05 14:47 | PM.PNNEP ---
Progress Note: A&P Additional Plan 1. Maura has chronic kidney disease. This is due to hypertension, diabetes, vascular disease, and chronic pre renal azotemia. baseline creatinine is around 2.5. Urine electrolytes show pre renal azotemia according to the fractional excretion of urea. Overnight her diuretics were held. Did not give fluids. Her BUN has come down a little bit and her creatinine is as expected stable. She will probably need more diuretics in the future. With the COVID she may not eat very much. 2. The patient has COVID. She is on respiratory isolation , Dexamethasone, and and oxygen. 3. The patient has hypertension. Her blood pressure is better at 1:07 a.m. today. 4. The patient has diabetes. She will be on sliding scale and insulin per hospitalists. 5. Liver enzyme elevation. Perhaps something to do with the COVID? 6. CHF due to pulm htn and TR. Subjective Date/time seen: 05/05/22 14:47 Interval history: the patient feels about the same. She is hungry for lunch. Still on high-flow oxygen. Review of Systems Cardiovascular: Cardiovascular: Reports no additional cardiovascular complaints Respiratory: Respiratory: Reports no additional respiratory complaints Gastrointestinal: Gastrointestinal: Reports no additional gastrointestinal complaints Genitourinary: Genitourinary: Reports no additional female genitourinary complaints Exam Narrative: WDWN in NAD skin no rash head ncat lungs Mildly coarse bilaterally. cor reg no rub abd BS+ nontender and soft ext Trace edema. Objective Data Vital Signs Vital Signs: Vital Signs - 24 hr 05/04/22 16:00 05/04/22 16:00 05/04/22 19:43 Temperature 36.2 C L 36.5 C Pulse Rate 67 68 Respiratory Rate 16 20 Blood Pressure 99/57 L 102/58 L Pulse Oximetry 98 94 99 Oxygen Delivery High Flow Therapy with Na Oxygen Flow Rate 50 Fraction of Inspired Oxygen 60 05/04/22 16:00 05/04/22 18:00 05/04/22 23:04 Temperature Pulse Rate 70 68 68 Respiratory Rate Blood Pressure Pulse Oximetry 96 Oxygen Delivery High Flow Therapy with Na Oxygen Flow Rate 50 Fraction of Inspired Oxygen 60 05/04/22 20:00 05/04/22 23:18 05/04/22 20:00 Temperature 36.7 C Pulse Rate 69 69 Respiratory Rate 20 Blood Pressure 110/70 Pulse Oximetry 94 95 Oxygen Delivery High Flow Therapy with Na Oxygen Flow Rate 50 Fraction of Inspired Oxygen 60 05/04/22 22:00 05/05/22 00:00 05/05/22 02:00 Temperature Pulse Rate 66 63 64 Respiratory Rate Blood Pressure Pulse Oximetry Oxygen Delivery Oxygen Flow Rate Fraction of Inspired Oxygen 05/05/22 00:00 05/05/22 04:00 05/05/22 04:00 Temperature Pulse Rate 67 Respiratory Rate Blood Pressure Pulse Oximetry 95 95 Oxygen Delivery High Flow Therapy with Na High Flow Therapy with Na Oxygen Flow Rate 50 50 Fraction of Inspired Oxygen 60 60 05/05/22 04:00 05/05/22 06:00 05/05/22 08:00 Temperature 36.6 C 36.4 C Pulse Rate 67 58 L 62 Respiratory Rate 20 16 Blood Pressure 101/54 L 112/75 Pulse Oximetry 97 97 Oxygen Delivery Oxygen Flow Rate Fraction of Inspired Oxygen 05/05/22 08:00 05/05/22 08:00 05/05/22 10:55 Temperature Pulse Rate 63 69 Respiratory Rate 20 Blood Pressure Pulse Oximetry 95 94 Oxygen Delivery High Flow Therapy with Na High Flow Therapy with Na Oxygen Flow Rate 50 50 Fraction of Inspired Oxygen 60 60 05/05/22 12:00 05/05/22 10:00 05/05/22 12:00 Temperature 36.5 C Pulse Rate 67 74 Respiratory Rate 14 Blood Pressure 107/77 Pulse Oximetry 97 97 Oxygen Delivery High Flow Therapy with Na Oxygen Flow Rate 50 Fraction of Inspired Oxygen 60 05/05/22 12:00 Temperature Pulse Rate 67 Respiratory Rate Blood Pressure Pulse Oximetry Oxygen Delivery Oxygen Flow Rate Fraction of Inspired Oxygen Intake/Output Intake/O
--- NOTE | 2022-05-05 19:10 | PM.IMPN ---
Progress Note: A&P Assessment and Plan (1) Acute and chronic respiratory failure: Code(s): J96.20 - Acute and chronic respiratory failure, unspecified whether with hypoxia or hypercapnia Status: Acute Assessment and Plan: Secondary to COVID and heart failure Continues on 50 L and 60% FiO2 on Airvo, attempting to wean today Dexamethasone 6 mg daily, day 3 of 10 today, started May 03, 2022 Continue azithromycin and Rocephin for possible underlying pneumonia, day 3 (2) Acute on chronic kidney failure: Code(s): N17.9 - Acute kidney failure, unspecified; N18.9 - Chronic kidney disease, unspecified Status: Acute Assessment and Plan: Nephrology consultation pending (3) Pulmonary hypertension: Code(s): I27.20 - Pulmonary hypertension, unspecified Status: Acute Assessment and Plan: Pulmonary consultation pending (4) Chronic anemia: Code(s): D64.9 - Anemia, unspecified Status: Acute Assessment and Plan: Anemia with a hemoglobin of 5.7 on admission, 8.7 status post 2 units, down to 7.5 today, fecal occult blood test pending (5) Acute exacerbation of congestive heart failure: Code(s): I50.9 - Heart failure, unspecified Status: Acute Assessment and Plan: Appreciate cardiology consultation, continue diuresis with Lasix IV (6) COVID-19: Code(s): U07.1 - COVID-19 Status: Acute Assessment and Plan: Continue dexamethasone, not a candidate for remdesivir Subjective Date/time seen: 05/05/22 19:10 Interval history: Patient states she feels a little better than yesterday. Somewhat less short of breath. No overnight events noted. No chest pain. No nausea, vomiting or diarrhea. No fevers or chills. Review of Systems Review of Systems: 12 point review of systems was assessed and was negative except as noted in the HPI Exam Narrative: General: No acute distress, alert and oriented per baseline, appears to be comfortable on high-flow oxygen, currently on 50 L at 60% FiO2 HEENT: Atraumatic, normocephalic, mucous membranes moist CV: Regular rate and rhythm, S1, S2 Lungs: Diminished breath sounds, coarse throughout, very diminished at bases Abdomen: Soft, nontender, nondistended Extremities: Normal to inspection Skin: No rashes noted, no lesions or wounds seen Psych: Euthymic, normal affect Objective Data Vital Signs Vital Signs: Vital Signs - 24 hr 05/04/22 19:43 05/04/22 23:04 05/04/22 20:00 Temperature 97.7 F Pulse Rate 68 68 Respiratory Rate 20 Blood Pressure 102/58 L Pulse Oximetry 99 96 94 Oxygen Delivery High Flow Therapy with Na High Flow Therapy with Na Oxygen Flow Rate 50 50 Fraction of Inspired Oxygen 60 60 05/04/22 23:18 05/04/22 20:00 05/04/22 22:00 Temperature 98.0 F Pulse Rate 69 69 66 Respiratory Rate 20 Blood Pressure 110/70 Pulse Oximetry 95 Oxygen Delivery Oxygen Flow Rate Fraction of Inspired Oxygen 05/05/22 00:00 05/05/22 02:00 05/05/22 00:00 Temperature Pulse Rate 63 64 Respiratory Rate Blood Pressure Pulse Oximetry 95 Oxygen Delivery High Flow Therapy with Na Oxygen Flow Rate 50 Fraction of Inspired Oxygen 60 05/05/22 04:00 05/05/22 04:00 05/05/22 04:00 Temperature 97.9 F Pulse Rate 67 67 Respiratory Rate 20 Blood Pressure 101/54 L Pulse Oximetry 95 97 Oxygen Delivery High Flow Therapy with Na Oxygen Flow Rate 50 Fraction of Inspired Oxygen 60 05/05/22 06:00 05/05/22 08:00 05/05/22 08:00 Temperature 97.6 F Pulse Rate 58 L 62 63 Respiratory Rate 16 Blood Pressure 112/75 Pulse Oximetry 97 Oxygen Delivery Oxygen Flow Rate Fraction of Inspired Oxygen 05/05/22 08:00 05/05/22 10:55 05/05/22 12:00 Temperature 97.7 F Pulse Rate 69 67 Respiratory Rate 20 14 Blood Pressure 107/77 Pulse Oximetry 95 94 97 Oxygen Delivery High Flow Therapy with Na High Fl
[2022-05-06] VITALS (16 sets, daily range): BP systolic 109–130; BP diastolic 68–89; PULSE 61–77; RESP 12–24; TEMP 36.2–37.1; O2SAT 89–100
[2022-05-06] MEDS: GABAPENTIN 100 MG CAPSULE PO ×3 (05:36→21:58)
--- NOTE | 2022-05-06 07:49 | PM.PNCARD ---
Progress Note: A&P Assessment and Plan (1) Acute exacerbation of congestive heart failure: Code(s): I50.9 - Heart failure, unspecified Status: Acute Assessment and Plan: CXR shows mild pulm edema, but clinically appears euvolemic. Due to high output failure from anemia, acute on chronic diastolic heart failure, pulm hypertension.? Echo shows EF 65%, mild LVH, grade I diastolic dysfunction (E/e' 12), mod TR, severe BASILIO, mild RVE, mild LAE, severe pulm hypertension with RVSP [address] Espinal to hold off on diuretics and monitor for volume overload and resume diuretics as needed. Will sign off. Please call with any questions. (2) Acute exacerbation of chronic obstructive pulmonary disease: Code(s): J44.1 - Chronic obstructive pulmonary disease with (acute) exacerbation Status: Acute Assessment and Plan: Pulm following. (3) Pneumonia due to 2019-nCoV: Code(s): U07.1 - COVID-19; J12.82 - Pneumonia due to coronavirus disease 2019 Status: Acute Assessment and Plan: Management per hospitalist. (4) Pulmonary hypertension: Code(s): I27.20 - Pulmonary hypertension, unspecified Status: Acute Assessment and Plan: Reviewed medical records received in fax from [facility] during hospitalization. I did not see anything pertaining to right heart cath or workup related to pulm hypertension. Need to ask for records of right heart cath if it was done. (5) Hyperlipidemia: Qualifiers: Hyperlipidemia type: unspecified Qualified Code(s): E78.5 - Hyperlipidemia, unspecified Code(s): E78.5 - Hyperlipidemia, unspecified Status: Chronic Assessment and Plan: On Atorvastatin and Zetia. (6) Diabetes mellitus: Qualifiers: Diabetes mellitus type: type 2 Diabetes mellitus nursing home insulin use: without nursing home use Diabetes mellitus complication status: with hyperglycemia Qualified Code(s): E11.65 - Type 2 diabetes mellitus with hyperglycemia Code(s): E11.9 - Type 2 diabetes mellitus without complications Status: Chronic Assessment and Plan: Management as per hospitalist. (7) Elevated troponin: Code(s): R77.8 - Other specified abnormalities of plasma proteins Status: Acute Assessment and Plan: This could be multifactorial including Covid pneumonia, acute on chronic diastolic heart failure, severe pulm hypertension, COPD exac, acute anemia. Doubt this is related to ACS with no wall motion abnormalities. Subjective Date/time seen: 05/06/22 07:49 Denies chest pain or sob. Does not feel weak this morning. Exam Const: General: cooperative, healthy appearing and comfortable Nutritional Appearance: obese Resp: Auscultation: clear to auscultation bilaterally, no crackles, no rales, no rhonchi and no wheezes Cardio: Jugular venous distension: no JVD Rate: regular rate Rhythm: regular rhythm Heart sounds: no murmurs GI: GI Palp: No abdominal tenderness and Yes Soft to palpation Neuro: General: oriented to person, oriented to place and oriented to time Extrem: Right lower extremity: no edema Left lower extremity: no edema Objective Data Vital Signs Vital Signs: Vital Signs - 24 hr 05/05/22 08:00 05/05/22 08:00 05/05/22 08:00 Temperature 97.6 F Pulse Rate 62 63 Respiratory Rate 16 Blood Pressure 112/75 Pulse Oximetry 97 95 Oxygen Delivery High Flow Therapy with Na Oxygen Flow Rate 50 Fraction of Inspired Oxygen 60 05/05/22 10:55 05/05/22 12:00 05/05/22 10:00 Temperature 97.7 F Pulse Rate 69 67 74 Respiratory Rate 20 14 Blood Pressure 107/77 Pulse Oximetry 94 97 Oxygen Delivery High Flow Therapy with Na Oxygen Flow Rate 50 Fraction of Inspired Oxygen 60 05/05/22 12:00 05/05/22 12:00 05/05/22 16:00 Temperature 97.6 F Pulse Rate 67 69 Respiratory Rate 14 Blood Pressure 108/76 Pulse Oximetry 97 95 Oxygen Delivery High Flow
[2022-05-06] MEDS: polyethylene glycoL 3350 17 GM POWD.PACK PO (08:15)
[2022-05-06] MEDS: PANTOPRAZOLE 40 MG TABLET PO ×2 (08:15→17:17)
[2022-05-06] MEDS: POLYSACCHARIDE IRON COMPLEX 150 MG CAPSULE PO ×2 (08:15→17:17)
[2022-05-06] MEDS: EZETIMIBE 10 MG TABLET PO (08:16)
[2022-05-06 09:09] LABS: Basophils Percent Auto 0.1 % (0.2-1.2); Hemoglobin 8.2 g/dL (12.0-15.0); Immature Granulocyte Absolute 0.11 K/mm3 (0.00-0.031); Immature Granulocyte Percent A 0.8 % (0-0.5); Lymphocytes Percent Auto 6.7 % (18.3-44.2); Mean Corpuscular HGB Conc 29.3 g/dl (32-36); Mean Corpuscular Hemoglobin 20.8 pg (26-34); Mean Corpuscular Volume 71.1 fl (80-100); Monocytes Absolute Auto 0.6 K/mm3 (0.1-0.6); Monocytes Percent Auto 4.2 % (2.6-8.5); Neutrophils Absolute Auto 11.8 K/mm3 (1.3-6.7); Neutrophils Percent Auto 88.2 % (45.5-73.1); Nucleated Red Blood Cells Absolute Auto 0.3 K/mm3 (0.0-0.012); Nucleated Red Blood Cells Perc 2.1 % (0.0-0.2); Platelet Count Result 220 k/mm3 (150-375); Red Blood Count 3.94 M/mm3 (4.2-5.4); Red Cell Distribution Width 25.3 % (11.5-14.5); White Blood Count 13.4 K/mm3 (4.5-10.0)
[2022-05-06 09:22] LABS: Alanine Aminotransferase 112 U/L (6-35); Albumin Level 3.6 g/dL (3.5-5.1); Alkaline Phosphatase 207 U/L (38-126); Anion Gap 10 mmol/L (8-16); Aspartate Amino Transferase 173 U/L (14-36); Bilirubin,Total 0.6 mg/dL (0.2-1.3); Blood Urea Nitrogen 97 mg/dL (7-17); CRP 2.1 mg/dL (<1.0); Calcium 8.7 mg/dL (8.4-10.2); Carbon Dioxide 25 mmol/L (22-30); Chloride 103 mmol/L (98-107); Estimated CRCL calculation 36 ml/min; Estimated Glomerular Filt Rate 32; Glucose 289 mg/dL (65-110); Potassium 4.7 mmol/L (3.4-5.0); Sodium 138 mmol/L (137-145)
[2022-05-06] MEDS: UMECLIDINIUM BROMIDE 62.5 MCG ELLIPTA 1 PUFF INHALATION (09:25)
[2022-05-06 09:32] LABS: Acanthocytes 1+ (NORMAL); Anisocytosis 2+ (NORMAL); Hypochromasia 2+ (NORMAL); Microcytosis 1+ (NORMAL); Platelet Estimate Adequate (Adequate)
[2022-05-06 09:38] LABS: D Dimer 0.86 ug/mL (<0.48)
--- NOTE | 2022-05-06 09:50 | PM.IMPN ---
Progress Note: A&P Assessment and Plan (1) Acute and chronic respiratory failure: Code(s): J96.20 - Acute and chronic respiratory failure, unspecified whether with hypoxia or hypercapnia Status: Acute Assessment and Plan: Secondary to COVID (tested positive 05/03/22) and heart failure (echo 11/20 showed +PFO on bubble study, EF 65%, grade I diastolic dysfunction, severe pulm HTN) Continues on 50 L and 50% FiO2 on Airvo, attempting to wean as able Dexamethasone 6 mg daily, day 4 of 10 today, started May 03, 2022 Continue azithromycin and Rocephin for possible underlying pneumonia, day 4 Not a candidate for remdesevir or FARTUN inhibitor Continue to follow CRP and D-dimer, CRP improving, recheck D-dimer and LDH pending No blood cultures drawn prior to antibiotic administration, will complete full course for possible community-acquired pneumonia, however, suspect this without COVID pneumonia with COPD exacerbation as opposed to bacterial etiology Check blood cultures, urinalysis LFTs trending down, likely increased from hepatic congestion 2/2 HF and COVID, possible hypoperfusion as well, improving Diuretics d/c (2) Acute on chronic kidney failure: Code(s): N17.9 - Acute kidney failure, unspecified; N18.9 - Chronic kidney disease, unspecified Status: Acute Assessment and Plan: 05/04: Appreciate nephrology consultation, creatinine improving steadily, 1.9 today with a BUN of 97, 2.3/115 yesterday 05/05: Given 1L NS o/n 05/04, diuretics d/c 05/05 05/06: monitor off IVF and off diuretics 05/05, will likely need to restart po diuresis today or tomorrow, monitor fluid status closely today (3) Pulmonary hypertension: Code(s): I27.20 - Pulmonary hypertension, unspecified Status: Acute Assessment and Plan: Appreciate pulmonology consultation, continue current management with dexamethasone and antibiotics for pneumonia (4) Chronic anemia: Code(s): D64.9 - Anemia, unspecified Status: Acute Assessment and Plan: Anemia with a hemoglobin of 5.7 on admission, 8.7 status post 2 units, down to 7.5 today, fecal occult blood test pending 05/06: Hemoglobin 8.2 today, fecal occult blood test somehow got canceled, reordered and pending, unsure of etiology, continue PPI b.i.d. (5) Acute exacerbation of congestive heart failure: Code(s): I50.9 - Heart failure, unspecified Status: Acute Assessment and Plan: Appreciate cardiology consultation, continue diuresis with Lasix IV (6) COVID-19: Code(s): U07.1 - COVID-19 Status: Acute Assessment and Plan: Continue dexamethasone, not a candidate for remdesivir, see above (7) Sleep apnea: Code(s): G47.30 - Sleep apnea, unspecified Status: Acute Assessment and Plan: Continue Airvo, noncompliant with CPAP at home Plan DVT prophylaxis with SCDs, when hemoglobin is stable will add pharmacological prophylaxis Subjective Date/time seen: 05/06/22 09:50 Interval history: No overnight events noted. No chest pain or shortness of breath. No nausea, vomiting or diarrhea. No fevers or chills. Review of Systems Review of Systems: 12 point review of systems was assessed and was negative except as noted in the HPI Exam Narrative: General: No acute distress, alert and oriented per baseline, appears to be comfortable on high-flow oxygen, currently on 50 L at 60% FiO2 HEENT: Atraumatic, normocephalic, mucous membranes moist CV: Regular rate and rhythm, S1, S2 Lungs: Diminished breath sounds, coarse throughout, very diminished at bases Abdomen: Soft, nontender, nondistended Extremities: Normal to inspection Skin: No rashes noted, no lesions or wounds seen Psych: Euthymic, normal affect Objective Data Vital Signs Vital Signs: Vital Signs - 24 hr 05/05/22 10:55 05/05/22 12:00 05/05/22 10:00 Temperature 97.7 F Pulse Rate 69 67 74 Respiratory Rate 20 14 Blood Pressure 107/77 Pulse Ox
[2022-05-06 10:14] LABS: Lactate Dehydrogenase 820 U/L (313-618)
[2022-05-06 11:16] LABS: Lactic Acid Reflex 1.5 mmol/L (0.7-2.0)
[2022-05-06 14:26] LABS: Appearance Urine Clear (Clear); Bilirubin Urine Negative (Negative); Blood Urine 2+ (Negative); Color Urine Yellow (Yellow); Glucose Urine UA Negative (Negative); Ketones Urine Negative (Negative); Leukocyte Esterase Ur Trace LEU/UL (NEGATIVE); Nitrate Urine Negative (Negative); Protein Urine Trace mg/dL (Negative); Urobilinogen Urine 0.2 mg/dL (<2.0); pH Urine 5.5 (5.0-9.0)
[2022-05-06 14:32] LABS: Mucus Urine Rare /lpf; Squamous Epithelial Cell Urine Rare /hpf (Few); Uric Acid Crystals Urine Present /hpf
[2022-05-06 14:36] LABS: Add Urine Microscopic? YES
[2022-05-06 14:48] LABS: Procalcitonin 0.5 ng/mL
--- NOTE | 2022-05-06 15:11 | PM.PNNEP ---
Progress Note: A&P Additional Plan 1. Maura has chronic kidney disease. This is due to hypertension, diabetes, vascular disease, and chronic pre renal azotemia. baseline creatinine is around 2.5. Currently her creatinine is down to 1.9. Will restart low-dose diuretics. She was on Lasix 80 b.i.d.. Will restart 40 b.i.d.. 2. The patient has COVID. She is on respiratory isolation , Dexamethasone, and and oxygen. 3. The patient has hypertension. Her blood pressure is better at 109. today. 4. The patient has diabetes. She will be on sliding scale and insulin per hospitalists. 5. Liver enzyme elevation. Perhaps something to do with the COVID? 6. CHF due to pulm htn and TR. Subjective Date/time seen: 05/06/22 15:11 Interval history: the patient feels about the same. Still on oxygen. Still on COVID isolation. Exam Narrative: WDWN in NAD skin no rash head ncat lungs Mildly coarse bilaterally. cor reg no rub abd BS+ nontender and soft ext Trace edema in the pre sacrum.. Objective Data Vital Signs Vital Signs: Vital Signs - 24 hr 05/05/22 16:00 05/05/22 16:00 05/05/22 16:00 Temperature 36.4 C Pulse Rate 69 69 Respiratory Rate 14 Blood Pressure 108/76 Pulse Oximetry 95 95 Oxygen Delivery High Flow Therapy with Na Oxygen Flow Rate 50 Fraction of Inspired Oxygen 60 05/05/22 18:16 05/05/22 18:00 05/05/22 20:45 Temperature Pulse Rate 73 Respiratory Rate Blood Pressure Pulse Oximetry 93 97 Oxygen Delivery High Flow Therapy with Na High Flow Therapy with Na Oxygen Flow Rate 50 50 Fraction of Inspired Oxygen 60 60 05/05/22 20:00 05/05/22 20:00 05/05/22 20:00 Temperature 36.4 C L Pulse Rate 73 72 Respiratory Rate 20 Blood Pressure 105/68 Pulse Oximetry 97 96 Oxygen Delivery High Flow Therapy with Na Oxygen Flow Rate 50 Fraction of Inspired Oxygen 50 05/05/22 22:00 05/05/22 22:37 05/05/22 23:59 Temperature 36.6 C Pulse Rate 72 70 65 Respiratory Rate 21 H 28 H Blood Pressure 125/78 Pulse Oximetry 97 93 Oxygen Delivery BiPAP Oxygen Flow Rate Fraction of Inspired Oxygen 05/06/22 00:00 05/06/22 00:00 05/06/22 02:00 Temperature Pulse Rate 69 61 Respiratory Rate Blood Pressure Pulse Oximetry 97 Oxygen Delivery High Flow Therapy with Na Oxygen Flow Rate 50 Fraction of Inspired Oxygen 50 05/06/22 04:00 05/06/22 04:00 05/06/22 04:00 Temperature 36.6 C Pulse Rate 68 74 Respiratory Rate 14 Blood Pressure 120/75 Pulse Oximetry 96 95 Oxygen Delivery High Flow Therapy with Na Oxygen Flow Rate 50 Fraction of Inspired Oxygen 50 05/06/22 06:00 05/06/22 08:00 05/06/22 09:25 Temperature 36.5 C Pulse Rate 69 68 Respiratory Rate 12 Blood Pressure 110/76 Pulse Oximetry 89 L 94 Oxygen Delivery High Flow Therapy with Na Oxygen Flow Rate 50 Fraction of Inspired Oxygen 50 05/06/22 08:00 05/06/22 08:00 05/06/22 10:59 Temperature Pulse Rate 70 72 Respiratory Rate Blood Pressure Pulse Oximetry 94 Oxygen Delivery High Flow Therapy with Na Oxygen Flow Rate 50 Fraction of Inspired Oxygen 80 05/06/22 12:00 05/06/22 12:00 05/06/22 12:00 Temperature 36.2 C L Pulse Rate 63 66 Respiratory Rate 12 Blood Pressure 109/79 Pulse Oximetry 94 100 Oxygen Delivery High Flow Therapy with Na Oxygen Flow Rate 50 Fraction of Inspired Oxygen 80 05/06/22 14:00 Temperature Pulse Rate 74 Respiratory Rate Blood Pressure Pulse Oximetry Oxygen Delivery Oxygen Flow Rate Fraction of Inspired Oxygen Intake/Output Intake/Output: Intake & Output 05/03/22 05/04/22 05/05/22 05/06/22 23:59 23:59 23:59 23:59 Intake Total 700 1910 1350 1060 Output Total 0 2725 1600 1200 Balance 700 -815 -250 -140 Meds/Results Medications: Active Medications Generic Name Dose Route Start Last Admin Trade Name F
[2022-05-06 15:39] LABS: Folic Acid > 20.0 ng/mL (2.76->20)
[2022-05-06] MEDS: FUROSEMIDE 40 MG TABLET PO (17:17)
[2022-05-06] MEDS: traMADol HCL (*CRX) 25 MG TABLET PO (20:53)
[2022-05-07] VITALS (17 sets, daily range): BP systolic 111–131; BP diastolic 74–91; PULSE 63–92; RESP 16–27; TEMP 36–37.1; O2SAT 92–99
[2022-05-07 05:18] LABS: Basophils Percent Auto 0.1 % (0.2-1.2); Hematocrit 28.3 % (37.0-47.0); Hemoglobin 8.6 g/dL (12.0-15.0); Immature Granulocyte Percent A 0.8 % (0-0.5); Immature Platelet Fraction Pct 7.8 % (0.9-11.2); Lymphocytes Absolute Auto 0.76 K/mm3 (0.9-3.2); Lymphocytes Percent Auto 5.9 % (18.3-44.2); Mean Corpuscular HGB Conc 30.4 g/dl (32-36); Mean Corpuscular Hemoglobin 20.9 pg (26-34); Mean Corpuscular Volume 68.9 fl (80-100); Monocytes Absolute Auto 0.5 K/mm3 (0.1-0.6); Monocytes Percent Auto 4.2 % (2.6-8.5); Neutrophils Absolute Auto 11.4 K/mm3 (1.3-6.7); Nucleated Red Blood Cells Absolute Auto 0.2 K/mm3 (0.0-0.012); Nucleated Red Blood Cells Perc 1.8 % (0.0-0.2); Platelet Count Result 201 k/mm3 (150-375); Red Blood Count 4.11 M/mm3 (4.2-5.4); Red Cell Distribution Width 25.7 % (11.5-14.5); White Blood Count 12.8 K/mm3 (4.5-10.0)
[2022-05-07 05:26] LABS: Albumin Level 3.8 g/dL (3.5-5.1); Anion Gap 7 mmol/L (8-16); Blood Urea Nitrogen 90 mg/dL (7-17); Calcium 8.9 mg/dL (8.4-10.2); Carbon Dioxide 26 mmol/L (22-30); Chloride 106 mmol/L (98-107); Estimated CRCL calculation 38 ml/min; Estimated Glomerular Filt Rate 34; Glucose 243 mg/dL (65-110); Phosphorus 3.2 mg/dL (2.5-4.5); Potassium 4.9 mmol/L (3.4-5.0); Sodium 139 mmol/L (137-145)
[2022-05-07 05:40] LABS: Anisocytosis 1+ (NORMAL); Hypochromasia 1+ (NORMAL); Platelet Estimate Adequate (Adequate)
[2022-05-07 05:41] LABS: Poikilocytosis 1+ (NORMAL); Target Cells 1+ (NORMAL)
[2022-05-07] MEDS: GABAPENTIN 100 MG CAPSULE PO ×3 (06:11→22:36)
[2022-05-07] MEDS: polyethylene glycoL 3350 17 GM POWD.PACK PO (08:47)
[2022-05-07] MEDS: POLYSACCHARIDE IRON COMPLEX 150 MG CAPSULE PO ×2 (08:47→16:07)
[2022-05-07] MEDS: PANTOPRAZOLE 40 MG TABLET PO ×2 (08:47→16:07)
[2022-05-07] MEDS: FUROSEMIDE 40 MG TABLET PO ×2 (08:47→16:07)
[2022-05-07] MEDS: EZETIMIBE 10 MG TABLET PO (08:47)
--- NOTE | 2022-05-07 10:00 | PM.IMPN ---
Progress Note: A&P Assessment and Plan (1) Acute and chronic respiratory failure: Code(s): J96.20 - Acute and chronic respiratory failure, unspecified whether with hypoxia or hypercapnia Status: Acute Assessment and Plan: Secondary to COVID (tested positive 05/03/22) and heart failure (echo 11/20 showed +PFO on bubble study, EF 65%, grade I diastolic dysfunction, severe pulm HTN) Continues on 50 L and 50% FiO2 on Airvo, attempting to wean as able Dexamethasone 6 mg daily, day 4 of 10 today, started May 03, 2022 Continue azithromycin and Rocephin for possible underlying pneumonia, day 4 Not a candidate for remdesevir or FARTUN inhibitor Continue to follow CRP and D-dimer, CRP improving, recheck D-dimer and LDH pending No blood cultures drawn prior to antibiotic administration, will complete full course for possible community-acquired pneumonia, however, suspect this without COVID pneumonia with COPD exacerbation as opposed to bacterial etiology Check blood cultures, urinalysis LFTs trending down, likely increased from hepatic congestion 2/2 HF and COVID, possible hypoperfusion as well, improving Diuretics d/c 05/07: Nephrology restarted patient on home po diuretics, monitor fluid status closely (2) Acute on chronic kidney failure: Code(s): N17.9 - Acute kidney failure, unspecified; N18.9 - Chronic kidney disease, unspecified Status: Acute Assessment and Plan: 05/04: Appreciate nephrology consultation, creatinine improving steadily, 1.9 today with a BUN of 97, 2.3/115 yesterday 05/05: Given 1L NS o/n 05/04, diuretics d/c 05/05 05/06: Monitor off IVF and off diuretics 05/05, will likely need to restart po diuresis today or tomorrow, monitor fluid status closely today 05/07: Home p.o. diuretics restarted by Nephrology (3) Pulmonary hypertension: Code(s): I27.20 - Pulmonary hypertension, unspecified Status: Acute Assessment and Plan: Appreciate pulmonology consultation, continue current management with dexamethasone and antibiotics for pneumonia (4) Chronic anemia: Code(s): D64.9 - Anemia, unspecified Status: Acute Assessment and Plan: Anemia with a hemoglobin of 5.7 on admission, 8.7 status post 2 units, down to 7.5 today, fecal occult blood test pending 05/06: Hemoglobin 8.2 today, fecal occult blood test somehow got canceled, reordered and pending, unsure of etiology, continue PPI b.i.d. 05/06: Hemoglobin stable at 8.6 today, fecal occult blood test came back positive, continue PPI, consult GI, check iron studies (5) Acute exacerbation of congestive heart failure: Code(s): I50.9 - Heart failure, unspecified Status: Acute Assessment and Plan: Appreciate cardiology consultation, continue diuresis with Lasix IV (6) COVID-19: Code(s): U07.1 - COVID-19 Status: Acute Assessment and Plan: Continue dexamethasone, not a candidate for remdesivir, see above (7) Sleep apnea: Code(s): G47.30 - Sleep apnea, unspecified Status: Acute Assessment and Plan: Continue Airvo, noncompliant with CPAP at home Plan DVT prophylaxis with SCDs, when hemoglobin is stable will add pharmacological prophylaxis 05/07: Heparin DVT prophylaxis restarted since hemoglobin has been stabilized, will monitor for bleeding closely since patient does have positive fecal occult, however, DVT prophylaxis was restarted in light of the hypercoagulable state of COVID Subjective Date/time seen: 05/07/22 10:00 Interval history: Patient sitting up to chair eating. She states she feels much better than yesterday. She denies seeing any blood in her stool, denies black tarry stool. No emesis or hemoptysis. She states her shortness of breath is improved, still with some chest tightness with a deep breath. No overnight events noted. No nausea, vomiting or diarrhea. No fevers or chills. Review of Systems Review of Systems: 12 point review of systems was assessed
--- NOTE | 2022-05-07 10:28 | PM.PNNEP ---
Progress Note: A&P Additional Plan 1. Maura has chronic kidney disease. This is due to hypertension, diabetes, vascular disease, and chronic pre renal azotemia. baseline creatinine is around 2.5. Currently her creatinine is down to 1.8. BUN is down as well. She made a lot of urine yesterday and intake/output was negative. She is on Lasix 40 b.i.d.. 2. The patient has COVID. She is on respiratory isolation , Dexamethasone, and oxygen. 3. The patient has hypertension. Her blood pressure is ranging from 110-130. 4. The patient has diabetes. She will be on sliding scale and insulin per hospitalists. 5. Liver enzyme elevation. Perhaps something to do with the COVID? Liver enzymes are improved. 6. CHF due to pulm htn and TR. Subjective Date/time seen: 05/07/22 10:28 Interval history: the patient feels about the same. She is still short of breath with any significant exertion. She is on lots of oxygen. She feels fine at rest she says. Exam Narrative: WDWN in NAD skin no rash head ncat lungs Mildly coarse bilaterally. cor reg no rub or gallop abd BS+ nontender and soft ext Trace edema in the pre sacrum.. Objective Data Vital Signs Vital Signs: Vital Signs - 24 hr 05/06/22 10:59 05/06/22 12:00 05/06/22 12:00 Temperature 36.2 C L Pulse Rate 72 63 Respiratory Rate 12 Blood Pressure 109/79 Pulse Oximetry 94 100 Oxygen Delivery High Flow Therapy with Na Oxygen Flow Rate 50 Fraction of Inspired Oxygen 80 05/06/22 12:00 05/06/22 14:00 05/06/22 16:00 Temperature 37.1 C Pulse Rate 66 74 71 Respiratory Rate 12 Blood Pressure 109/68 Pulse Oximetry 92 Oxygen Delivery Oxygen Flow Rate Fraction of Inspired Oxygen 05/06/22 16:00 05/06/22 16:00 05/06/22 18:00 Temperature Pulse Rate 69 77 Respiratory Rate Blood Pressure Pulse Oximetry 94 Oxygen Delivery High Flow Therapy with Na Oxygen Flow Rate 50 Fraction of Inspired Oxygen 80 05/06/22 19:43 05/06/22 20:00 05/06/22 20:00 Temperature 36.3 C L Pulse Rate 74 74 72 Respiratory Rate 18 18 Blood Pressure 125/89 Pulse Oximetry 93 93 Oxygen Delivery High Flow Therapy with Na Oxygen Flow Rate 50 Fraction of Inspired Oxygen 70 05/06/22 22:00 05/06/22 23:47 05/07/22 00:00 Temperature 36.6 C Pulse Rate 67 74 74 Respiratory Rate 24 H 24 H Blood Pressure 130/88 Pulse Oximetry 96 96 Oxygen Delivery High Flow Therapy with Na Oxygen Flow Rate 50 Fraction of Inspired Oxygen 65 05/07/22 00:00 05/07/22 01:52 05/07/22 02:15 Temperature Pulse Rate 63 68 64 Respiratory Rate 17 Blood Pressure Pulse Oximetry 93 Oxygen Delivery BiPAP Oxygen Flow Rate Fraction of Inspired Oxygen 05/06/22 20:15 05/07/22 04:00 05/07/22 04:00 Temperature 36.6 C Pulse Rate 71 64 Respiratory Rate 20 Blood Pressure 129/89 Pulse Oximetry 95 95 Oxygen Delivery High Flow Therapy with Na Oxygen Flow Rate 50 Fraction of Inspired Oxygen 74 05/07/22 04:00 05/07/22 05:33 05/07/22 07:54 Temperature 37.1 C Pulse Rate 64 67 75 Respiratory Rate 20 27 H Blood Pressure 114/79 Pulse Oximetry 95 92 Oxygen Delivery BiPAP Oxygen Flow Rate Fraction of Inspired Oxygen 60 05/07/22 08:00 05/07/22 08:00 Temperature Pulse Rate 64 Respiratory Rate Blood Pressure Pulse Oximetry 98 Oxygen Delivery High Flow Therapy with Na Oxygen Flow Rate 50 Fraction of Inspired Oxygen 65 Intake/Output Intake/Output: Intake & Output 05/04/22 05/05/22 05/06/22 05/07/22 23:59 23:59 23:59 23:59 Intake Total 1910 1350 1300 Output Total 2655 1600 2750 825 [facility] -815 -250 -1450 -825 Meds/Results Medications: Active Medications Generic Name Dose Route Start Last Admin Trade Name Freq PRN Reason Stop Dose Admin Albuterol 2 puff 05/03/22 10:38 Albuterol Sulfate (*Sp) Aerosol 1 Puff INHALATION Q4HR
[2022-05-07] MEDS: UMECLIDINIUM BROMIDE 62.5 MCG ELLIPTA 1 PUFF INHALATION (14:32)
[2022-05-07 14:47] LABS: IFOB Positive Control Positive; Immunochemical Fecal Occult Bl Positive (N)
[2022-05-07] MEDS: HEPARIN SODIUM 5,000 UNITS/ML VIAL 5000 UNITS SUB-Q ×2 (16:07→22:36)
[2022-05-07 17:57] LABS: Basophils Percent Auto 0.1 % (0.2-1.2); Hematocrit 31.5 % (37.0-47.0); Hemoglobin 9.1 g/dL (12.0-15.0); Immature Granulocyte Absolute 0.19 K/mm3 (0.00-0.031); Immature Granulocyte Percent A 1.3 % (0-0.5); Immature Platelet Fraction Pct 7.6 % (0.9-11.2); Lymphocytes Absolute Auto 0.56 K/mm3 (0.9-3.2); Lymphocytes Percent Auto 3.7 % (18.3-44.2); Mean Corpuscular HGB Conc 28.9 g/dl (32-36); Mean Corpuscular Hemoglobin 20.9 pg (26-34); Mean Corpuscular Volume 72.4 fl (80-100); Monocytes Absolute Auto 0.3 K/mm3 (0.1-0.6); Monocytes Percent Auto 2.3 % (2.6-8.5); Neutrophils Percent Auto 92.6 % (45.5-73.1); Nucleated Red Blood Cells Absolute Auto 0.3 K/mm3 (0.0-0.012); Nucleated Red Blood Cells Perc 1.8 % (0.0-0.2); Platelet Count Result 227 k/mm3 (150-375); Red Blood Count 4.35 M/mm3 (4.2-5.4); Red Cell Distribution Width 26.1 % (11.5-14.5); White Blood Count 15.1 K/mm3 (4.5-10.0)
[2022-05-07 18:17] LABS: Alanine Aminotransferase 90 U/L (6-35); Aspartate Amino Transferase 134 U/L (14-36); Estimated CRCL calculation 40 ml/min; Estimated Glomerular Filt Rate 37
[2022-05-07 18:30] LABS: Platelet Estimate Adequate (Adequate)
[2022-05-07 18:31] LABS: Acanthocytes 1+ (NORMAL); Anisocytosis 2+ (NORMAL); Hypochromasia 2+ (NORMAL)
--- NOTE | 2022-05-07 20:31 | CONS_ITS ---
DATE OF CONSULTATION: 05/07/2022 HISTORY OF PRESENT ILLNESS: A 62-year-old female with history of CHF, COPD with history of chronic respiratory failure and home O2, obstructive sleep apnea, noncompliant with CPAP, chronic kidney disease, cirrhosis, adrenal mass, type 2 diabetes, hypertension, hyperlipidemia, 11 mm lung nodule, x3, appendectomy, cholecystectomy, who presented with dyspnea on exertion and was noted to have profound anemia, was COVID positive on May 03. She also has positive troponins. I am now asked to provide GI evaluation for heme-positive stool and chronic blood loss anemia at the request of the hospitalist service. The patient's primary care provider is Dr. Murillo. Primary electric refrigerator servicer is Dr. Abdoulaye Wilkerson. Due to the patient's COVID positivity and need to preserve resources, I will not be seeing this patient in person. There are no reports of acute GI complaints in the chart that I can see. No endocarditis risk factors. ALLERGIES: TO PENICILLIN AND SULFA. MEDICATIONS: See list that includes: 1. Baby aspirin. 2. Iron. 3. Protonix 40 mg twice daily. SOCIAL HISTORY: Ex smoker. Occasional alcohol. FAMILY HISTORY: Negative for GI malignancy. On July 15, 2020, upper endoscopy showed gastric ulcers and esophageal ring with Miranda dilation performed. Biopsy is negative for H pylori. Colonoscopy showed internal hemorrhoids. These were done by Dr. Wilkerson. PHYSICAL EXAMINATION: Not performed. LABORATORY DATA: Labs done on 05/07, hemoglobin 9, hematocrit 32, white count 15, platelets 227, MCV 72, AST 134, ALT is 90. Stool is heme positive. On May 03, hemoglobin 6, hematocrit 20, white count of 11, MCV 66. B12 is 829. Folate is greater than 20. Retic count is 1.5. Ferritin is 39, iron is 44, TIBC is 380, percent sat is 12. TSH is 3. T bilirubin is 1.1, alkaline phosphatase is 235, AST is 375, ALT is 152. Troponins are elevated. There is another EGD report from 07/16/2021, by Dr. Addison, with a 2 cm hiatal hernia, [id number] gastritis. Biopsy consistent with gastritis and fibrosis. ASSESSMENT AND PLAN: 1. Chronic blood loss anemia with heme-positive stool and microcytosis. Certainly concern for GI versus non GI source of anemia. Could have hemoglobinopathy. Consider checking hemoglobin electrophoresis. Consider erythropoietin and IV iron. Care with aspirin, nonsteroidals and anticoagulants. Follow H and H and transfuse as needed. Empiric acid suppression with Protonix. Could consider repeat upper endoscopy and capsule endoscopy when stable. The patient has poor retic count suggesting some bone marrow dysfunction. Creatinine is 1.8 today suggesting significant renal impairment. Currently, the patient is not a candidate for endoscopy with multiple comorbidities, especially pulmonary. Would wait for Pulmonary clearance. 2. Abnormal LFTs. Differential diagnosis is extensive, but has history of cirrhosis, which may have been evaluated in the past. We will leave further evaluation to [facility] to not repeat previously done evaluation. Certainly could be due to acute illness as well. Follow LFTs for now. Further recommendations per [facility]. FRITZ LEE M.D. ELEVATOR BUILDER ELEVATOR BUILDER D I MT: Inocencio BO
[2022-05-07] MEDS: BARICITINIB 2 MG TABLET PO (22:36)
[2022-05-07] MEDS: SENNA/DOCUSATE SODIUM TABLET 1 TAB PO (22:38)
[2022-05-08] VITALS (16 sets, daily range): BP systolic 108–139; BP diastolic 46–90; PULSE 65–97; RESP 12–24; TEMP 36.3–37; O2SAT 94–99
[2022-05-08 05:14] LABS: Basophils Percent Auto 0.1 % (0.2-1.2); Hemoglobin 9.3 g/dL (12.0-15.0); Immature Granulocyte Percent A 0.7 % (0-0.5); Immature Platelet Fraction Pct 7.8 % (0.9-11.2); Lymphocytes Absolute Auto 0.92 K/mm3 (0.9-3.2); Lymphocytes Percent Auto 6.7 % (18.3-44.2); Mean Corpuscular HGB Conc 29.1 g/dl (32-36); Mean Corpuscular Hemoglobin 20.9 pg (26-34); Mean Corpuscular Volume 71.9 fl (80-100); Monocytes Absolute Auto 0.7 K/mm3 (0.1-0.6); Monocytes Percent Auto 5.4 % (2.6-8.5); Neutrophils Percent Auto 87.1 % (45.5-73.1); Nucleated Red Blood Cells Absolute Auto 0.2 K/mm3 (0.0-0.012); Nucleated Red Blood Cells Perc 1.5 % (0.0-0.2); Platelet Count Result 201 k/mm3 (150-375); Red Blood Count 4.45 M/mm3 (4.2-5.4); Red Cell Distribution Width 26.5 % (11.5-14.5); White Blood Count 13.8 K/mm3 (4.5-10.0)
[2022-05-08 05:25] LABS: Alanine Aminotransferase 79 U/L (6-35); Albumin Level 3.5 g/dL (3.5-5.1); Anion Gap 6 mmol/L (8-16); Aspartate Amino Transferase 109 U/L (14-36); Blood Urea Nitrogen 84 mg/dL (7-17); Calcium 8.9 mg/dL (8.4-10.2); Carbon Dioxide 28 mmol/L (22-30); Chloride 104 mmol/L (98-107); Estimated CRCL calculation 43 ml/min; Estimated Glomerular Filt Rate 39; Glucose 247 mg/dL (65-110); Phosphorus 2.9 mg/dL (2.5-4.5); Potassium 4.8 mmol/L (3.4-5.0); Sodium 138 mmol/L (137-145)
[2022-05-08] MEDS: HEPARIN SODIUM 5,000 UNITS/ML VIAL 5000 UNITS SUB-Q ×3 (05:42→21:22)
[2022-05-08] MEDS: GABAPENTIN 100 MG CAPSULE PO ×3 (05:42→21:22)
[2022-05-08 06:16] LABS: Anisocytosis 1+ (NORMAL); Hypochromasia 1+ (NORMAL); Platelet Estimate Adequate (Adequate); Target Cells 1+ (NORMAL)
[2022-05-08 06:17] LABS: Acanthocytes 1+ (NORMAL); Ovalocytes 1+ (NORMAL)
[2022-05-08 08:38] LABS: CRP 0.9 mg/dL (<1.0)
[2022-05-08] MEDS: POLYSACCHARIDE IRON COMPLEX 150 MG CAPSULE PO ×2 (08:50→17:23)
[2022-05-08] MEDS: polyethylene glycoL 3350 17 GM POWD.PACK PO (08:50)
[2022-05-08] MEDS: FUROSEMIDE 40 MG TABLET PO (08:51)
[2022-05-08] MEDS: EZETIMIBE 10 MG TABLET PO (08:51)
[2022-05-08] MEDS: PANTOPRAZOLE 40 MG TABLET PO ×2 (08:51→17:23)
[2022-05-08 08:53] LABS: D Dimer 1.29 ug/mL (<0.48)
--- NOTE | 2022-05-08 09:10 | WPDGIPROGNO ---
Progress Note: A&P Additional Plan GI [facility] 08 May 2022 Patient not seen personally due to CV-19 positivity No reports of GI complaints or active GI bleed 05/08/2022 Hct 32. AST 109, ALT 79 On May 03, hemoglobin 6, hematocrit 20, white count of 11, MCV 66.? B12 is 829.? Folate is greater than 20.? Retic count is 1.5.? Ferritin is 39, iron is 44, TIBC is 380, percent sat is 12.? TSH is 3.? T bilirubin is 1.1, alkaline phosphatase is 235, AST is 375, ALT is 152. ? ASSESSMENT AND PLAN:? A.Chronic blood loss anemia with heme-positive stool and microcytosis: Concern for GI versus non GI source of anemia: - Could have hemoglobinopathy; consider checking hemoglobin electrophoresis - Consider erythropoietin and IV iron - Care with aspirin, nonsteroidals and anticoagulants - Follow H and H and transfuse as needed - Empiric acid suppression with Protonix - Could consider repeat upper endoscopy and capsule endoscopy when stable - The patient has poor retic count suggesting some bone marrow dysfunction - Creatinine is 1.8 today suggesting significant renal impairment - Currently, the patient is not a candidate for endoscopy with multiple comorbidities, especially pulmonary - Would wait for Pulmonary clearance B. Abnormal LFTs: - Differential diagnosis is extensive, but has history of cirrhosis, which may have been evaluated in the past - Will leave further evaluation to [facility] to not repeat previously done evaluation - Certainly could be due to acute illness as well - Follow LFTs for now Further recommendations per [facility]. Thanks, [facility] [phone] Subjective Date/time seen: 05/08/22 09:10 Objective Data Vital Signs Vital Signs: Vital Signs - 24 hr 05/07/22 10:00 05/07/22 12:00 05/07/22 14:37 Temperature 36.8 C Pulse Rate 74 64 92 Respiratory Rate 20 20 Blood Pressure 131/91 H Pulse Oximetry 95 Oxygen Delivery Oxygen Flow Rate Fraction of Inspired Oxygen 05/07/22 14:38 05/07/22 12:00 05/07/22 14:00 Temperature Pulse Rate 87 90 Respiratory Rate Blood Pressure Pulse Oximetry 94 Oxygen Delivery High Flow Therapy with Na Oxygen Flow Rate 50 Fraction of Inspired Oxygen 60 05/07/22 12:00 05/07/22 16:00 05/07/22 16:00 Temperature 37.0 C Pulse Rate 86 89 Respiratory Rate 16 Blood Pressure 111/74 Pulse Oximetry 98 94 Oxygen Delivery High Flow Therapy with Na Oxygen Flow Rate 50 Fraction of Inspired Oxygen 65 05/07/22 16:00 05/07/22 18:00 05/07/22 20:00 Temperature 36.0 C L Pulse Rate 88 91 Respiratory Rate 20 Blood Pressure 121/76 Pulse Oximetry 98 99 Oxygen Delivery High Flow Therapy with Na Oxygen Flow Rate 50 Fraction of Inspired Oxygen 65 05/08/22 00:00 05/07/22 20:00 05/07/22 20:00 Temperature 36.7 C Pulse Rate 71 82 91 Respiratory Rate 24 H 20 Blood Pressure 137/69 Pulse Oximetry 96 99 Oxygen Delivery High Flow Therapy with Na Oxygen Flow Rate 50 Fraction of Inspired Oxygen 65 05/08/22 00:00 05/07/22 22:00 05/08/22 00:00 Temperature Pulse Rate 71 84 78 Respiratory Rate 24 H Blood Pressure Pulse Oximetry 96 Oxygen Delivery BiPAP Oxygen Flow Rate Fraction of Inspired Oxygen 60 05/08/22 02:00 05/07/22 23:05 05/08/22 03:25 Temperature Pulse Rate 72 71 74 Respiratory Rate 18 18 Blood Pressure Pulse Oximetry 96 99 Oxygen Delivery BiPAP BiPAP Oxygen Flow Rate Fraction of Inspired Oxygen 05/08/22 04:00 05/08/22 04:00 05/08/22 04:00 Temperature 36.3 C L Pulse Rate 65 72 72 Respiratory Rate 24 H 24 H Blood Pressure 128/77 Pulse Oximetry 95 95 Oxygen Delivery BiPAP Oxygen Flow Rate Fraction of Inspired Oxygen 60 05/08/22 06:00 05/08/22 08:00 Temperature 37.0 C Pulse Rate 77 77 Respiratory Rate 24 H Blood Pressure 132/90 Pulse Oximetry 95 Oxygen Delivery Oxygen Flow Rate Fraction of Inspired Oxy
[2022-05-08] MEDS: UMECLIDINIUM BROMIDE 62.5 MCG ELLIPTA 1 PUFF INHALATION (09:20)
--- NOTE | 2022-05-08 11:17 | PM.PNNEP ---
Progress Note: A&P Additional Plan 1. Maura has chronic kidney disease. This is due to hypertension, diabetes, vascular disease, and chronic pre renal azotemia. baseline creatinine is around 2.5. Currently her creatinine is down to 1.6. BUN is down as well. Because of the good numbers and her oxygenation we can increase her Bumex to 80 b.i.d. again. 2. The patient has COVID. She is on respiratory isolation , Dexamethasone, and oxygen. 3. The patient has hypertension. Her blood pressure is ranging from 110-137 4. The patient has diabetes. She will be on sliding scale and insulin per hospitalists. 5. Liver enzyme elevation. Perhaps something to do with the COVID? Liver enzymes are improving 6. CHF due to pulm htn and TR. 7. She has anemia. Hemoglobin is 9.3, and is on the rise. Subjective Date/time seen: 05/08/22 11:17 Interval history: the patient feels about the same. Still requiring Airvo for oxygenation. She made 2L of urine yesterday. FiO2 ranging from 60-65 lately. It was 80 two days ago. Exam Narrative: WDWN in NAD skin no rash head ncat lungs Mildly coarse bilaterally. cor reg no rub or gallop abd BS+ nontender and soft ext Trace edema in the pre sacrum.. Objective Data Vital Signs Vital Signs: Vital Signs - 24 hr 05/07/22 12:00 05/07/22 14:37 05/07/22 14:38 Temperature 36.8 C Pulse Rate 64 92 Respiratory Rate 20 20 Blood Pressure 131/91 H Pulse Oximetry 95 94 Oxygen Delivery High Flow Therapy with Na Oxygen Flow Rate 50 Fraction of Inspired Oxygen 60 05/07/22 12:00 05/07/22 14:00 05/07/22 12:00 Temperature Pulse Rate 87 90 Respiratory Rate Blood Pressure Pulse Oximetry 98 Oxygen Delivery High Flow Therapy with Na Oxygen Flow Rate 50 Fraction of Inspired Oxygen 65 05/07/22 16:00 05/07/22 16:00 05/07/22 16:00 Temperature 37.0 C Pulse Rate 86 89 Respiratory Rate 16 Blood Pressure 111/74 Pulse Oximetry 94 98 Oxygen Delivery High Flow Therapy with Na Oxygen Flow Rate 50 Fraction of Inspired Oxygen 65 05/07/22 18:00 05/07/22 20:00 05/08/22 00:00 Temperature 36.0 C L 36.7 C Pulse Rate 88 91 71 Respiratory Rate 20 24 H Blood Pressure 121/76 137/69 Pulse Oximetry 99 96 Oxygen Delivery Oxygen Flow Rate Fraction of Inspired Oxygen 05/07/22 20:00 05/07/22 20:00 05/08/22 00:00 Temperature Pulse Rate 82 91 71 Respiratory Rate 20 24 H Blood Pressure Pulse Oximetry 99 96 Oxygen Delivery High Flow Therapy with Na BiPAP Oxygen Flow Rate 50 Fraction of Inspired Oxygen 65 60 05/07/22 22:00 05/08/22 00:00 05/08/22 02:00 Temperature Pulse Rate 84 78 72 Respiratory Rate Blood Pressure Pulse Oximetry Oxygen Delivery Oxygen Flow Rate Fraction of Inspired Oxygen 05/07/22 23:05 05/08/22 03:25 05/08/22 04:00 Temperature Pulse Rate 71 74 65 Respiratory Rate 18 18 Blood Pressure Pulse Oximetry 96 99 Oxygen Delivery BiPAP BiPAP Oxygen Flow Rate Fraction of Inspired Oxygen 05/08/22 04:00 05/08/22 04:00 05/08/22 06:00 Temperature 36.3 C L Pulse Rate 72 72 77 Respiratory Rate 24 H 24 H Blood Pressure 128/77 Pulse Oximetry 95 95 Oxygen Delivery BiPAP Oxygen Flow Rate Fraction of Inspired Oxygen 60 05/08/22 08:00 05/08/22 09:20 Temperature 37.0 C Pulse Rate 77 87 Respiratory Rate 24 H 20 Blood Pressure 132/90 Pulse Oximetry 95 96 Oxygen Delivery High Flow Therapy with Na Oxygen Flow Rate 40 Fraction of Inspired Oxygen 65 Intake/Output Intake/Output: Intake & Output 05/05/22 05/06/22 05/07/22 05/08/22 23:59 23:59 23:59 23:59 Intake Total 1350 1300 600 120 Output Total 1600 2750 1999 Balance -250 1450 -1400 120 Meds/Results Medications: Active Medications Generic Name Dose Route Start Last Admin Trade Name Freq PRN Reason Stop Dose Admin Albuterol 2 puff 05/03/22 10:3
[2022-05-08] MEDS: BARICITINIB 2 MG TABLET PO (11:29)
--- NOTE | 2022-05-08 14:16 | PM.IMPN ---
Progress Note: A&P Assessment and Plan (1) Acute and chronic respiratory failure: Code(s): J96.20 - Acute and chronic respiratory failure, unspecified whether with hypoxia or hypercapnia Status: Acute Assessment and Plan: Secondary to COVID (tested positive 05/03/22) and heart failure (echo 11/20 showed +PFO on bubble study, EF 65%, grade I diastolic dysfunction, severe pulm HTN) Continues on 50 L and 60% FiO2 on Airvo, attempting to wean as able Dexamethasone 6 mg daily, day 5 of today, started May 03, 2022 Not a candidate for remdesevir or FARTUN inhibitor sp course or abx (2) Acute on chronic kidney failure: Code(s): N17.9 - Acute kidney failure, unspecified; N18.9 - Chronic kidney disease, unspecified Status: Acute Assessment and Plan: creatinine stable. Baseline creatinine around 2. Home p.o. diuretics restarted by Nephrology (3) Pulmonary hypertension: Code(s): I27.20 - Pulmonary hypertension, unspecified Status: Acute Assessment and Plan: Appreciate pulmonology consultation (4) Chronic anemia: Code(s): D64.9 - Anemia, unspecified Status: Acute Assessment and Plan: Appreciate GI input. No urgent need for endoscopy. (5) Acute exacerbation of congestive heart failure: Code(s): I50.9 - Heart failure, unspecified Status: Acute Assessment and Plan: Appreciate cardiology consultation, continue diuresis with Lasix IV (6) COVID-19: Code(s): U07.1 - COVID-19 Status: Acute Assessment and Plan: Continue dexamethasone, not a candidate for remdesivir, see above (7) Sleep apnea: Code(s): G47.30 - Sleep apnea, unspecified Status: Acute Assessment and Plan: Continue Airvo, noncompliant with CPAP at home Subjective Date/time seen: 05/08/22 14:16 no new complaints Exam Narrative: General: No acute distress, alert and oriented per baseline, appears to be comfortable on high-flow oxygen, currently on 50 L at 60% FiO2, attempting to wean HEENT: Atraumatic, normocephalic, mucous membranes moist CV: Regular rate and rhythm, S1, S2 Lungs: Diminished breath sounds, coarse throughout, very diminished at bases Abdomen: Soft, nontender, nondistended Extremities: Normal to inspection Skin: No rashes noted, no lesions or wounds seen Psych: Euthymic, normal affect Const: General: in distress mild (Respiratory) HENMT: Mouth: Yes moist mucous membranes Eyes: General: appearance normal, both eyes and all related structures Pupils: Equal, round and reactive pupils present EOM: EOMs intact bilaterally Neck: Neck: supple and No no JVD (There is approximately 1 in or JVD bilaterally.) Resp: Effort & Inspection: abnormal respiratory effort (Patient currently tachypneic and showing signs of dyspnea.) Auscultation: crackles, rales, rhonchi, wheezes and diminished lung sounds Other: Patient without adventitious lung sounds in all altman and/or decreased in all altman. Cardio: Rate: regular rate Rhythm: regular rhythm Heart sounds: no gallops, Murmur heart sound present diastolic and systolic and no rubs Other: There is mild displacement of PMI to the left lateral. GI: Inspection: non-distended Auscultation: normal bowel sounds : Other: Deferred Skin: General skin exam: normal color, no rashes or lesions noted and no erythema Lesions: no lesions noted Rashes: no rashes noted Wounds: wound noted Neuro: Cranial nerves: Yes Equal, round and reactive pupils present Speech: normal speech Motor exam (neuro): Normal motor muscle tone present throughout and Abnormal motor strength present (Generalized weakness.) Sensory Exam: normal sensation Extrem: General: edema (Pitting 1+ to 2+ edema bilaterally.) bilateral and pedal edema Psych: Mental Status: mental status grossly normal Affect: normal affect Objective Data Vital Signs Vital Signs: Vital Signs - 24 hr 05/07/22 14:37 0
[2022-05-08] MEDS: FUROSEMIDE 40 MG TABLET 80 MG PO (17:23)
[2022-05-09] VITALS (16 sets, daily range): BP systolic 100–126; BP diastolic 44–72; PULSE 71–112; RESP 18–26; TEMP 35.7–36.6; O2SAT 93–100
[2022-05-09 05:22] LABS: Basophils Percent Auto 0.1 % (0.2-1.2); Eosinophils Percent Auto 0.1 % (0-4.4); Hematocrit 32.1 % (37.0-47.0); Hemoglobin 9.7 g/dL (12.0-15.0); Immature Granulocyte Absolute 0.06 K/mm3 (0.00-0.031); Immature Granulocyte Percent A 0.5 % (0-0.5); Immature Platelet Fraction Pct 7.5 % (0.9-11.2); Lymphocytes Absolute Auto 1.14 K/mm3 (0.9-3.2); Lymphocytes Percent Auto 9.8 % (18.3-44.2); Mean Corpuscular HGB Conc 30.2 g/dl (32-36); Mean Corpuscular Volume 69.3 fl (80-100); Monocytes Absolute Auto 0.6 K/mm3 (0.1-0.6); Neutrophils Absolute Auto 9.8 K/mm3 (1.3-6.7); Neutrophils Percent Auto 84.5 % (45.5-73.1); Nucleated Red Blood Cells Absolute Auto 0.1 K/mm3 (0.0-0.012); Nucleated Red Blood Cells Perc 0.9 % (0.0-0.2); Platelet Count Result 202 k/mm3 (150-375); Red Blood Count 4.63 M/mm3 (4.2-5.4); Red Cell Distribution Width 26.8 % (11.5-14.5); White Blood Count 11.6 K/mm3 (4.5-10.0)
[2022-05-09 05:46] LABS: Alanine Aminotransferase 72 U/L (6-35); Albumin Level 3.6 g/dL (3.5-5.1); Anion Gap 7 mmol/L (8-16); Aspartate Amino Transferase 100 U/L (14-36); Blood Urea Nitrogen 70 mg/dL (7-17); Calcium 9.4 mg/dL (8.4-10.2); Carbon Dioxide 34 mmol/L (22-30); Chloride 99 mmol/L (98-107); Estimated CRCL calculation 43 ml/min; Estimated Glomerular Filt Rate 39; Glucose 185 mg/dL (65-110); Phosphorus 2.9 mg/dL (2.5-4.5); Potassium 4.2 mmol/L (3.4-5.0); Sodium 140 mmol/L (137-145)
[2022-05-09 05:56] LABS: Platelet Estimate Adequate (Adequate)
[2022-05-09 05:57] LABS: Anisocytosis 1+ (NORMAL); Burr Cells 1+ (NORMAL); Large Platelets Present; Schistocytes 1+ (NORMAL); Tear Drop Cells 1+ (NORMAL)
[2022-05-09] MEDS: HEPARIN SODIUM 5,000 UNITS/ML VIAL 5000 UNITS SUB-Q ×2 (06:03→22:37)
[2022-05-09] MEDS: GABAPENTIN 100 MG CAPSULE PO ×3 (06:03→22:37)
[2022-05-09] MEDS: POLYSACCHARIDE IRON COMPLEX 150 MG CAPSULE PO ×2 (09:16→17:09)
[2022-05-09] MEDS: polyethylene glycoL 3350 17 GM POWD.PACK PO (09:16)
[2022-05-09] MEDS: BARICITINIB 2 MG TABLET PO (09:16)
[2022-05-09] MEDS: PANTOPRAZOLE 40 MG TABLET PO ×2 (09:16→17:09)
[2022-05-09] MEDS: FUROSEMIDE 40 MG TABLET 80 MG PO ×2 (09:16→17:09)
[2022-05-09] MEDS: EZETIMIBE 10 MG TABLET PO (09:16)
[2022-05-09 09:27] LABS: Glucose Point of Care 163 mg/dl (65-105)
--- NOTE | 2022-05-09 12:12 | PM.IMPN ---
Progress Note: A&P Assessment and Plan (1) Acute and chronic respiratory failure: Code(s): J96.20 - Acute and chronic respiratory failure, unspecified whether with hypoxia or hypercapnia Status: Acute Assessment and Plan: Secondary to COVID (tested positive 05/03/22) and heart failure (echo 11/20 showed +PFO on bubble study, EF 65%, grade I diastolic dysfunction, severe pulm HTN) Continues on 40 L and 60% FiO2 on Airvo, attempting to wean as able Dexamethasone 6 mg daily, day 6 of 10 today, started May 03, 2022 Not a candidate for remdesevir or FARTUN inhibitor sp course or abx (2) Acute on chronic kidney failure: Code(s): N17.9 - Acute kidney failure, unspecified; N18.9 - Chronic kidney disease, unspecified Status: Acute Assessment and Plan: creatinine stable. Baseline creatinine around 2. Home p.o. diuretics restarted by Nephrology (3) Pulmonary hypertension: Code(s): I27.20 - Pulmonary hypertension, unspecified Status: Acute Assessment and Plan: Appreciate pulmonology consultation (4) Chronic anemia: Code(s): D64.9 - Anemia, unspecified Status: Acute Assessment and Plan: Appreciate GI input. No urgent need for endoscopy. (5) Acute exacerbation of congestive heart failure: Code(s): I50.9 - Heart failure, unspecified Status: Acute Assessment and Plan: Appreciate cardiology consultation, continue diuresis with Lasix IV (6) COVID-19: Code(s): U07.1 - COVID-19 Status: Acute Assessment and Plan: Continue dexamethasone, not a candidate for remdesivir, see above (7) Sleep apnea: Code(s): G47.30 - Sleep apnea, unspecified Status: Acute Assessment and Plan: Continue Airvo, noncompliant with CPAP at home Subjective Date/time seen: 05/09/22 12:12 continues on Airvo. Reports her shortness of breath is improving slowly. Exam Narrative: General: No acute distress, alert and oriented per baseline, appears to be comfortable on high-flow oxygen, currently on 50 L at 60% FiO2, attempting to wean HEENT: Atraumatic, normocephalic, mucous membranes moist CV: Regular rate and rhythm, S1, S2 Lungs: Diminished breath sounds, coarse throughout, very diminished at bases Abdomen: Soft, nontender, nondistended Extremities: Normal to inspection Skin: No rashes noted, no lesions or wounds seen Psych: Euthymic, normal affect Const: General: in distress mild (Respiratory) HENMT: Mouth: Yes moist mucous membranes Eyes: General: appearance normal, both eyes and all related structures Pupils: Equal, round and reactive pupils present EOM: EOMs intact bilaterally Neck: Neck: supple and No no JVD (There is approximately 1 in or JVD bilaterally.) Resp: Effort & Inspection: abnormal respiratory effort (Patient currently tachypneic and showing signs of dyspnea.) Auscultation: crackles, rales, rhonchi, wheezes and diminished lung sounds Other: Patient without adventitious lung sounds in all altman and/or decreased in all altman. Cardio: Rate: regular rate Rhythm: regular rhythm Heart sounds: no gallops, Murmur heart sound present diastolic and systolic and no rubs Other: There is mild displacement of PMI to the left lateral. GI: Inspection: non-distended Auscultation: normal bowel sounds : Other: Deferred Skin: General skin exam: normal color, no rashes or lesions noted and no erythema Lesions: no lesions noted Rashes: no rashes noted Wounds: wound noted Neuro: Cranial nerves: Yes Equal, round and reactive pupils present Speech: normal speech Motor exam (neuro): Normal motor muscle tone present throughout and Abnormal motor strength present (Generalized weakness.) Sensory Exam: normal sensation Extrem: General: edema (Pitting 1+ to 2+ edema bilaterally.) bilateral and pedal edema Psych: Mental Status: mental status grossly normal Affect: normal affect Objective Data Vital Signs
[2022-05-09] MEDS: UMECLIDINIUM BROMIDE 62.5 MCG ELLIPTA 1 PUFF INHALATION (14:22)
--- NOTE | 2022-05-09 14:25 | PM.PNNEP ---
Progress Note: A&P Assessment and Plan (1) Chronic kidney disease, stage IV (severe): Code(s): N18.4 - Chronic kidney disease, stage 4 (severe) Status: Chronic Assessment and Plan: due to hypertension, diabetes, vascular disease, and chronic pre renal azotemia (from necessity of diuretic therapy) baseline creatinine is ~ 2.5mg/dl creatinine better than baseline (down to 1.6mg/dl) continue diuretic therapy (2) Acute and chronic respiratory failure: Code(s): J96.20 - Acute and chronic respiratory failure, unspecified whether with hypoxia or hypercapnia Status: Acute Assessment and Plan: secondary to COVID-19 infection and exacerbation of heart failure complicated by known COPD, pulmonary HTM, GUANACO on steroids s/p course of antibiotics (3) Pneumonia due to COVID-19 virus: Code(s): U07.1 - COVID-19; J12.82 - Pneumonia due to coronavirus disease 2018 Status: Acute Assessment and Plan: on steroids, isolation, and supplemental oxygen continue supportive care (4) CHF exacerbation: Qualifiers: Heart failure type: diastolic Qualified Code(s): I50.33 - Acute on chronic diastolic (congestive) heart failure Code(s): I50.9 - Heart failure, unspecified Status: Resolved Assessment and Plan: due to her pulmonary hypertension and tricuspid regurgitation continue diuretic therapy follow I/Os and daily weights (5) Hypertension: Qualifiers: Hypertension type: essential hypertension Qualified Code(s): I10 - Essential (primary) hypertension Code(s): I10 - Essential (primary) hypertension Status: Chronic Assessment and Plan: reasonable control follow trend of hemodynamics (6) Diabetes mellitus: Qualifiers: Diabetes mellitus type: type 2 Diabetes mellitus senior living insulin use: without intermodal customer service use Diabetes mellitus complication status: with hyperglycemia Qualified Code(s): E11.65 - Type 2 diabetes mellitus with hyperglycemia Code(s): E11.9 - Type 2 diabetes mellitus without complications Status: Chronic Assessment and Plan: follow accuchecks glycemic control Will continue to follow. Subjective Date/time seen: 05/09/22 14:25 Chart reviewed - assuming care from Dr. Espinal; respiratory status remains tenuous given her significant oxygen requirements; however, she seems comfortable at the time of my visit; renal function remains relatively in spite of diuretic therapy; does report some dyspnea with exertion; no acute distress voiced. Exam Narrative: General: WD/WN AA female in NAD Heart: normal S1 and S2; no rub Lungs: coarse breath sound throughout Abdomen: soft, nontender, nondistended, positive bowel sounds Extremities: no cyanosis or clubbing; trace edema Skin: warm and dry Objective Data Vital Signs Vital Signs: Vital Signs Temp Pulse Resp BP Pulse Ox O2 Del Method O2 Flow Rate 05/09/22 14:23 96 High Flow Therapy with Na 35 05/09/22 09:32 97 High Flow Therapy with Na 40 05/09/22 14:00 81 05/09/22 12:00 78 05/09/22 12:00 95 20 95 High Flow Therapy with Na 40 05/09/22 12:00 35.7 C L 95 20 126/71 95 05/09/22 10:00 97 05/09/22 08:00 98 High Flow Therapy with Na 40 05/09/22 08:00 35.9 C L 92 18 106/72 94 05/09/22 08:00 75 05/09/22 06:00 77 05/09/22 04:00 82 05/09/22 04:00 97 22 H 96 High Flow Therapy with Na 40 05/09/22 04:00 36.4 C 97 22 H 105/64 96 05/09/22 01:45 80 05/09/22 00:00 83 05/08/22 23:59 87 24 H 94 High Flow Therapy with Na 40 05/08/22 23:18 36.4 C 87 24 H 139/72 94 05/08/22 22:00 81 05/08/22 20:00 87 05/08/22 20:00 91 20 96 High Flow Therapy with Na 40 05/08/22 20:00 36.4 C 91 20 117/79 96 Intake/Output Intake/Output: Intake & Output
--- NOTE | 2022-05-09 14:25 | P.PNNP_ITS ---
Progress Note: A&P Assessment and Plan (1) Chronic kidney disease, stage IV (severe): Code(s): N18.4 - Chronic kidney disease, stage 4 (severe) Status: Chronic Assessment and Plan: * due to hypertension, diabetes, vascular disease, and chronic pre renal azotemia (from necessity of diuretic therapy) * baseline creatinine is ~ 2.5mg/dl * creatinine better than baseline (down to 1.6mg/dl) * continue diuretic therapy (2) Acute and chronic respiratory failure: Code(s): J96.20 - Acute and chronic respiratory failure, unspecified whether with hypoxia or hypercapnia Status: Acute Assessment and Plan: * secondary to COVID-19 infection and exacerbation of heart failure * complicated by known COPD, pulmonary HTM, GUANACO * on steroids * s/p course of antibiotics (3) Pneumonia due to COVID-19 virus: Code(s): U07.1 - COVID-19; J12.82 - Pneumonia due to coronavirus disease 2018 Status: Acute Assessment and Plan: * on steroids, isolation, and supplemental oxygen * continue supportive care (4) CHF exacerbation: Qualifiers: Heart failure type: diastolic Qualified Code(s): I50.33 - Acute on chronic diastolic (congestive) heart failure Code(s): I50.9 - Heart failure, unspecified Status: Resolved Assessment and Plan: * due to her pulmonary hypertension and tricuspid regurgitation * continue diuretic therapy * follow I/Os and daily weights (5) Hypertension: Qualifiers: Hypertension type: essential hypertension Qualified Code(s): I10 - Essential (primary) hypertension Code(s): I10 - Essential (primary) hypertension Status: Chronic Assessment and Plan: * reasonable control * follow trend of hemodynamics (6) Diabetes mellitus: Qualifiers: Diabetes mellitus type: type 2 Diabetes mellitus tank terminal gauger insulin use: without tank terminal gauger use Diabetes mellitus complication status: with hyperglycemia Qualified Code(s): E11.65 - Type 2 diabetes mellitus with hyperglycemia Code(s): E11.9 - Type 2 diabetes mellitus without complications Status: Chronic Assessment and Plan: * follow accuchecks * glycemic control Will continue to follow. Subjective Date/time seen: 05/09/22 14:25 Chart reviewed - assuming care from Dr. Espinal; respiratory status remains tenuous given her significant oxygen requirements; however, she seems comfortable at the time of my visit; renal function remains relatively in spite of diuretic therapy; does report some dyspnea with exertion; no acute distress voiced. Exam Narrative: General: WD/WN AA female in NAD Heart: normal S1 and S2; no rub Lungs: coarse breath sound throughout Abdomen: soft, nontender, nondistended, positive bowel sounds Extremities: no cyanosis or clubbing; trace edema Skin: warm and dry Objective Data Vital Signs Vital Signs: Vital Signs Temp Pulse Resp BP Pulse Ox O2 Del Method O2 Flow Rate 05/09/22 14:23 96 High Flow Therapy with Na 35 05/09/22 09:32 97 High Flow Therapy with Na 40 05/09/22 14:00 81 05/09/22 12:00 78 05/09/22 12:00 95 20 95 High Flow Therapy with Na 40 05/09/22 12:00 35.7 C L 95 20 126/71 95 05/09/22 10:00 97 05/09/22
--- NOTE | 2022-05-09 17:04 | PM.PNPUL ---
Progress Note: A&P Assessment and Plan (1) Pneumonia due to 2019-nCoV: Code(s): U07.1 - COVID-19; J12.82 - Pneumonia due to coronavirus disease 2018 Status: Acute Assessment and Plan: This 62 year old female was admitted May 03 with hypoxemia, saturation in the high 70s low 80s, cough, green sputum, increased shortness of breath and weakness, not able to walk for 3 days [employer], SARS-CoV-2 PCR (+) on May 03 after exposure to her male friend who was sick enough to be admitted April 25-April 28. She has multiple abnormal lab studies consistent with COVID pneumonia with sepsis. She is not a candidate for remdesivir due to her acute on chronic renal failure BUN is 115 creatinine 3.0, CXR shows patchy bilateral infiltrates, and she is requiring AirVo with moderately high amounts of O2, 60 L/min and 60%. She is normally on 4 L/min at baseline, so her current need is not unexpected. She has had 1 COVID vaccination. Baricitinib is an option for severe disease, although her creat clearance is really low, 24, and has chronic lung disease. She is not a good candidate for this medication. (2) Acute on chronic respiratory failure with hypoxia and hypercapnia: Code(s): J96.21 - Acute and chronic respiratory failure with hypoxia; J96.22 - Acute and chronic respiratory failure with hypercapnia Status: Acute Assessment and Plan: She has long standing chronic hypoxemic respiratory failure, was on O2 4 L/min and 5 L/min with exertion before Oct 2020 admission; she is on higher O2 with acute episode of COVID pneumonia. She has the additional issue of decompensated cardiac function, defer to Dr Hopkins the exact degree of problem; she has diastolic problem and apparently right heart failure which is acute on chronic. Untreated GUANACO is making these problems worse. She has a PAP machine, possibly a NPPV at home, does not use. (3) Acute on chronic kidney failure: Code(s): N17.9 - Acute kidney failure, unspecified; N18.9 - Chronic kidney disease, unspecified Status: Acute Assessment and Plan: BUN and creat up, way out of range from her usual baseline, 115/3.0 now, usually 20-40 BUN in creat 1.4 - 1.9 over last 6 months. She is making excellent urine after Lasix today, however BP fell. (4) Pulmonary hypertension: Code(s): I27.20 - Pulmonary hypertension, unspecified Status: Acute Assessment and Plan: Severe pulmonary hypertension on echo early in 2021, PA pressure 69 mmHg, no information about her treatment at [facility] in November 2021. Echo yesterday = PA pressure 84mmHg. Multifactoral causes, COPD, chronic resp failure, CHF, and PFO. Not sure is she had Rx for this at [facility] in Nov. (5) Chronic obstructive pulmonary disease: Code(s): J44.9 - Chronic obstructive pulmonary disease, unspecified Status: Acute Assessment and Plan: She has emphysema on CT imaging, has had increased pC02 on occasion, not this admission. She can continue LAMA inhaled, does not need inhaled steroid while she is on dexamethasone. She has been treated with 3 long acting medications at home. She has not had an office visit since 2011 due to multiple admissions since then. Last PFT 09/15/2020; FEV1 61%, 1.56 L; FVC 61%, 2.12 L; FEV1/FVC = 73%; TLC 446%, RV 24%, RV/TLC 20%, Raw 229; DLCO 24%, DLCO/VA 71%. (6) Obstructive sleep apnea: Code(s): G47.33 - Obstructive sleep apnea (adult) (pediatric) Status: Acute Assessment and Plan: Last sleep study 08/13/2020 AHI 11.7, severely hypoxemic on baseline, optimal pressure BiPAP 12/7 with 6 L of oxygen She is not compliant with P
[2022-05-09] MEDS: SENNA/DOCUSATE SODIUM TABLET 1 TAB PO (22:37)
[2022-05-10] VITALS (18 sets, daily range): BP systolic 102–118; BP diastolic 55–78; PULSE 65–111; RESP 16–25; TEMP 36.1–36.7; O2SAT 91–100
[2022-05-10] MEDS: HEPARIN SODIUM 5,000 UNITS/ML VIAL 5000 UNITS SUB-Q ×3 (05:29→21:07)
[2022-05-10] MEDS: GABAPENTIN 100 MG CAPSULE PO ×3 (05:29→21:08)
[2022-05-10 05:37] LABS: Basophils Percent Auto 0.1 % (0.2-1.2); Eosinophils Percent Auto 0.1 % (0-4.4); Hemoglobin 9.5 g/dL (12.0-15.0); Immature Granulocyte Absolute 0.03 K/mm3 (0.00-0.031); Immature Granulocyte Percent A 0.3 % (0-0.5); Immature Platelet Fraction Pct 7.5 % (0.9-11.2); Lymphocytes Absolute Auto 1.08 K/mm3 (0.9-3.2); Lymphocytes Percent Auto 9.1 % (18.3-44.2); Mean Corpuscular HGB Conc 28.8 g/dl (32-36); Mean Corpuscular Hemoglobin 20.7 pg (26-34); Mean Corpuscular Volume 71.9 fl (80-100); Monocytes Absolute Auto 0.6 K/mm3 (0.1-0.6); Monocytes Percent Auto 4.8 % (2.6-8.5); Neutrophils Absolute Auto 10.2 K/mm3 (1.3-6.7); Neutrophils Percent Auto 85.6 % (45.5-73.1); Nucleated Red Blood Cells Absolute Auto 0.1 K/mm3 (0.0-0.012); Nucleated Red Blood Cells Perc 0.6 % (0.0-0.2); Platelet Count Result 227 k/mm3 (150-375); Red Blood Count 4.59 M/mm3 (4.2-5.4); Red Cell Distribution Width 27.1 % (11.5-14.5); White Blood Count 11.9 K/mm3 (4.5-10.0)
[2022-05-10 05:54] LABS: Alanine Aminotransferase 68 U/L (6-35); Aspartate Amino Transferase 99 U/L (14-36); CRP 0.6 mg/dL (<1.0); Estimated CRCL calculation 41 ml/min; Estimated Glomerular Filt Rate 37
[2022-05-10 06:40] LABS: Hypochromasia 2+ (NORMAL); Platelet Estimate Adequate (Adequate)
[2022-05-10 06:41] LABS: Anisocytosis 1+ (NORMAL); Target Cells 1+ (NORMAL)
[2022-05-10 07:17] LABS: D Dimer 2.26 ug/mL (<0.48)
[2022-05-10] MEDS: UMECLIDINIUM BROMIDE 62.5 MCG ELLIPTA 1 PUFF INHALATION (08:24)
[2022-05-10] MEDS: EZETIMIBE 10 MG TABLET PO (08:59)
[2022-05-10] MEDS: polyethylene glycoL 3350 17 GM POWD.PACK PO (08:59)
[2022-05-10] MEDS: FUROSEMIDE 40 MG TABLET 80 MG PO ×2 (09:00→17:42)
[2022-05-10] MEDS: POLYSACCHARIDE IRON COMPLEX 150 MG CAPSULE PO ×2 (09:00→17:42)
[2022-05-10] MEDS: PANTOPRAZOLE 40 MG TABLET PO ×2 (09:00→17:42)
[2022-05-10] MEDS: BARICITINIB 2 MG TABLET PO (09:00)
--- NOTE | 2022-05-10 10:00 | PCNWS ---
Weekly nutritional screen completed via phone call due to COVID-19. Patient is tolerating current heart healthy diet with adequate intake. Weight recorded is stable. Pt reported enjoying the food and had no further questions or concerns. No nutritional needs at this time.
--- NOTE | 2022-05-10 10:18 | P.PNNP_ITS ---
Progress Note: A&P Assessment and Plan (1) Chronic kidney disease, stage IV (severe): Code(s): N18.4 - Chronic kidney disease, stage 4 (severe) Status: Chronic Assessment and Plan: * due to hypertension, diabetes, vascular disease, and chronic pre renal azotemia (from necessity of diuretic therapy) * baseline creatinine is ~ 2.5mg/dl * creatinine better than baseline at this time * continue diuretic therapy (2) Acute and chronic respiratory failure: Code(s): J96.20 - Acute and chronic respiratory failure, unspecified whether with hypoxia or hypercapnia Status: Acute Assessment and Plan: * secondary to COVID-19 infection and exacerbation of heart failure * complicated by known COPD, pulmonary HTM, GUANACO * on steroids * s/p course of antibiotics (3) Pneumonia due to COVID-19 virus: Code(s): U07.1 - COVID-19; J12.82 - Pneumonia due to coronavirus disease 2018 Status: Acute Assessment and Plan: * on steroids, isolation, and supplemental oxygen * continue supportive care (4) CHF exacerbation: Qualifiers: Heart failure type: diastolic Qualified Code(s): I50.33 - Acute on chronic diastolic (congestive) heart failure Code(s): I50.9 - Heart failure, unspecified Status: Resolved Assessment and Plan: * due to her pulmonary hypertension and tricuspid regurgitation * continue diuretic therapy * follow I/Os and daily weights (5) Hypertension: Qualifiers: Hypertension type: essential hypertension Qualified Code(s): I10 - Essential (primary) hypertension Code(s): I10 - Essential (primary) hypertension Status: Chronic Assessment and Plan: * reasonable control * follow trend of hemodynamics (6) Diabetes mellitus: Qualifiers: Diabetes mellitus complication status: with hyperglycemia Diabetes mellitus [facility] insulin use: without marine oil terminal superintendent use Diabetes mellitus type: type 2 Qualified Code(s): E11.65 - Type 2 diabetes mellitus with hyperglycemia Code(s): E11.9 - Type 2 diabetes mellitus without complications Status: Chronic Assessment and Plan: * follow accuchecks * glycemic control Will continue to follow. Subjective Date/time seen: 05/10/22 10:18 Respiratory status seems relatively stable and she states that overall, she does feel better and seems to be making slow improvement/progress; no apparent acute issues or problems overnight or earlier this morning; no distress voiced. Exam Narrative: General: WD/WN AA female in NAD Heart: normal S1 and S2; no rub Lungs: coarse breath sound throughout Abdomen: soft, nontender, nondistended, positive bowel sounds Extremities: no cyanosis or clubbing; trace edema Skin: warm and intact Objective Data Vital Signs Vital Signs: Vital Signs Temp Pulse Resp BP Pulse Ox O2 Del Method O2 Flow Rate 05/10/22 08:25 96 High Flow Therapy with Na 35 05/10/22 07:51 36.1 C L 82 24 H 117/78 100 05/10/22 06:00 82 05/10/22 05:00 81 19 100 BiPAP 05/10/22 04:00 36.5 C 65 20 118/55 L 99 05/10/22 04:00 84 05/10/22 04:00 79 16 99 BiPAP 05/10/22 02:53 79 16 99 BiPAP 05/10/22 02:00 72 05/10/22 00:00 92 21
--- NOTE | 2022-05-10 10:18 | PM.PNNEP ---
Progress Note: A&P Assessment and Plan (1) Chronic kidney disease, stage IV (severe): Code(s): N18.4 - Chronic kidney disease, stage 4 (severe) Status: Chronic Assessment and Plan: due to hypertension, diabetes, vascular disease, and chronic pre renal azotemia (from necessity of diuretic therapy) baseline creatinine is ~ 2.5mg/dl creatinine better than baseline at this time continue diuretic therapy (2) Acute and chronic respiratory failure: Code(s): J96.20 - Acute and chronic respiratory failure, unspecified whether with hypoxia or hypercapnia Status: Acute Assessment and Plan: secondary to COVID-19 infection and exacerbation of heart failure complicated by known COPD, pulmonary HTM, GUANACO on steroids s/p course of antibiotics (3) Pneumonia due to COVID-19 virus: Code(s): U07.1 - COVID-19; J12.82 - Pneumonia due to coronavirus disease 2018 Status: Acute Assessment and Plan: on steroids, isolation, and supplemental oxygen continue supportive care (4) CHF exacerbation: Qualifiers: Heart failure type: diastolic Qualified Code(s): I50.33 - Acute on chronic diastolic (congestive) heart failure Code(s): I50.9 - Heart failure, unspecified Status: Resolved Assessment and Plan: due to her pulmonary hypertension and tricuspid regurgitation continue diuretic therapy follow I/Os and daily weights (5) Hypertension: Qualifiers: Hypertension type: essential hypertension Qualified Code(s): I10 - Essential (primary) hypertension Code(s): I10 - Essential (primary) hypertension Status: Chronic Assessment and Plan: reasonable control follow trend of hemodynamics (6) Diabetes mellitus: Qualifiers: Diabetes mellitus complication status: with hyperglycemia Diabetes mellitus applied anthropologist insulin use: without detention use Diabetes mellitus type: type 2 Qualified Code(s): E11.65 - Type 2 diabetes mellitus with hyperglycemia Code(s): E11.9 - Type 2 diabetes mellitus without complications Status: Chronic Assessment and Plan: follow accuchecks glycemic control Will continue to follow. Subjective Date/time seen: 05/10/22 10:18 Respiratory status seems relatively stable and she states that overall, she does feel better and seems to be making slow improvement/progress; no apparent acute issues or problems overnight or earlier this morning; no distress voiced. Exam Narrative: General: WD/WN AA female in NAD Heart: normal S1 and S2; no rub Lungs: coarse breath sound throughout Abdomen: soft, nontender, nondistended, positive bowel sounds Extremities: no cyanosis or clubbing; trace edema Skin: warm and intact Objective Data Vital Signs Vital Signs: Vital Signs Temp Pulse Resp BP Pulse Ox O2 Del Method O2 Flow Rate 05/10/22 08:25 96 High Flow Therapy with Na 35 05/10/22 07:51 36.1 C L 82 24 H 117/78 100 05/10/22 06:00 82 05/10/22 05:00 81 19 100 BiPAP 05/10/22 04:00 36.5 C 65 20 118/55 L 99 05/10/22 04:00 84 05/10/22 04:00 79 16 99 BiPAP 05/10/22 02:53 79 16 99 BiPAP 05/10/22 02:00 72 05/10/22 00:00 92 21 H 99 BiPAP 05/10/22 00:00 92 05/09/22 23:47 36.5 C 71 21 H 116/67 99 05/09/22 22:00 73 05/09/22 20:00 85 26 H 100 BiPAP 05/09/22 20:00 85 05/09/22 22:21 100 BiPAP 05/09/22 22:20 85 26 H 100 BiPAP 05/09/22 20:00 36.6 C 86 22 H 117/44 L 96 05/09/22 16:00 36.1 C L 112 H 18 100/59 L 93 05/09/22 16:00 98 05/09/22 16:00 81 20 96 High Flow Therapy with Na 60 05/09/22 14:33 96 High Flow Therapy with Na 35 05/09/22 14:00 81 05/09/22 12:00 78 05/09/22 12:00 95 20 95 High Flow Therapy with Na 40 05/09/22 12:00 35.7 C L 95 20 126/71 95 Intake/Output In
--- NOTE | 2022-05-10 10:55 | PM.IMPN ---
Progress Note: A&P Assessment and Plan (1) Acute and chronic respiratory failure: Code(s): J96.20 - Acute and chronic respiratory failure, unspecified whether with hypoxia or hypercapnia Status: Acute Assessment and Plan: Secondary to COVID (tested positive 05/03/22) and heart failure (echo 11/20 showed +PFO on bubble study, EF 65%, grade I diastolic dysfunction, severe pulm HTN) Continues on 40 L and 60% FiO2 on Airvo, attempting to wean as able Dexamethasone 6 mg daily, day 6 of today, started May 03, 2022 Not a candidate for remdesevir or FARTUN inhibitor s/p course or abx (2) Acute on chronic kidney failure: Code(s): N17.9 - Acute kidney failure, unspecified; N18.9 - Chronic kidney disease, unspecified Status: Acute Assessment and Plan: creatinine stable. Baseline creatinine around 2. Home p.o. diuretics restarted by Nephrology (3) Pulmonary hypertension: Code(s): I27.20 - Pulmonary hypertension, unspecified Status: Acute Assessment and Plan: Appreciate pulmonology consultation (4) Chronic anemia: Code(s): D64.9 - Anemia, unspecified Status: Acute Assessment and Plan: Appreciate GI input. No urgent need for endoscopy. (5) Acute exacerbation of congestive heart failure: Code(s): I50.9 - Heart failure, unspecified Status: Acute Assessment and Plan: Appreciate cardiology consultation, continue diuresis with Lasix IV (6) COVID-19: Code(s): U07.1 - COVID-19 Status: Acute Assessment and Plan: Continue dexamethasone, not a candidate for remdesivir, see above (7) Sleep apnea: Code(s): G47.30 - Sleep apnea, unspecified Status: Acute Assessment and Plan: Continue Airvo, noncompliant with CPAP at home Subjective Date/time seen: 05/10/22 10:55 Interval history: Patient states he is doing better. still on airvo Exam Narrative: General: No acute distress, alert and oriented per baseline, appears to be comfortable on high-flow oxygen, currently on 50 L at 60% FiO2, attempting to wean HEENT: Atraumatic, normocephalic, mucous membranes moist CV: Regular rate and rhythm, S1, S2 Lungs: Diminished breath sounds, coarse throughout, very diminished at bases Abdomen: Soft, nontender, nondistended Extremities: Normal to inspection Skin: No rashes noted, no lesions or wounds seen Psych: Euthymic, normal affect Objective Data Vital Signs Vital Signs: Vital Signs - 24 hr 05/09/22 12:00 05/09/22 12:00 05/09/22 12:00 Temperature 96.2 F L Pulse Rate 95 95 78 Respiratory Rate 20 20 Blood Pressure 126/71 Pulse Oximetry 95 95 Oxygen Delivery High Flow Therapy with Na Oxygen Flow Rate 40 Fraction of Inspired Oxygen 54 05/09/22 14:00 05/09/22 14:33 05/09/22 16:00 Temperature Pulse Rate 81 81 Respiratory Rate 20 Blood Pressure Pulse Oximetry 96 96 Oxygen Delivery High Flow Therapy with Na High Flow Therapy with Na Oxygen Flow Rate 35 60 Fraction of Inspired Oxygen 45 45 05/09/22 16:00 05/09/22 16:00 05/09/22 20:00 Temperature 96.9 F L 97.9 F Pulse Rate 98 112 H 86 Respiratory Rate 18 22 H Blood Pressure 100/59 L 117/44 L Pulse Oximetry 93 96 Oxygen Delivery Oxygen Flow Rate Fraction of Inspired Oxygen 05/09/22 22:20 05/09/22 22:21 05/09/22 20:00 Temperature Pulse Rate 85 85 Respiratory Rate 26 H Blood Pressure Pulse Oximetry 100 100 Oxygen Delivery BiPAP BiPAP Oxygen Flow Rate Fraction of Inspired Oxygen 65 05/09/22 20:00 05/09/22 22:00 05/09/22 23:47 Temperature 97.7 F Pulse Rate 85 73 71 Respiratory Rate 26 H 21 H Blood Pressure 116/67 Pulse Oximetry 100 99 Oxygen Delivery BiPAP Oxygen Flow Rate Fraction of Inspired Oxygen 65 05/10/22 00:00 05/10/22 00:00 05/10/22 02:00 Temperature Pulse Rate 92 92 72 Respiratory Rate 21 H Blood Pressure Pulse Oximetry 99
--- NOTE | 2022-05-10 12:22 | PCNSR ---
On 05/10/22, the student,Angeli Tolbert, provided care and completed [facility] documentation on this patient. I have reviewed the student's documentation and agree with the findings.
[2022-05-10] MEDS: SENNA/DOCUSATE SODIUM TABLET 1 TAB PO (21:08)
--- NOTE | 2022-05-10 23:46 | PC.NURSE ---
patient tried to get up to use the restroom. her o2 sats decreased to 71, on airvo. she was struggling to breathe. called dr zohaib turner to decrease patients o2 consumption.
[2022-05-11] VITALS (16 sets, daily range): BP systolic 96–111; BP diastolic 60–74; PULSE 79–116; RESP 20–28; TEMP 36–36.6; O2SAT 91–100
[2022-05-11 05:05] LABS: Basophils Percent Auto 0.1 % (0.2-1.2); Eosinophils Absolute Auto 0.1 K/mm3 (0-0.3); Eosinophils Percent Auto 0.5 % (0-4.4); Hematocrit 32.1 % (37.0-47.0); Hemoglobin 9.3 g/dL (12.0-15.0); Immature Granulocyte Absolute 0.08 K/mm3 (0.00-0.031); Immature Granulocyte Percent A 0.6 % (0-0.5); Immature Platelet Fraction Pct 8.5 % (0.9-11.2); Lymphocytes Absolute Auto 1.18 K/mm3 (0.9-3.2); Lymphocytes Percent Auto 9.2 % (18.3-44.2); Mean Corpuscular Hemoglobin 21.1 pg (26-34); Mean Corpuscular Volume 72.8 fl (80-100); Monocytes Absolute Auto 0.6 K/mm3 (0.1-0.6); Monocytes Percent Auto 4.8 % (2.6-8.5); Neutrophils Absolute Auto 10.9 K/mm3 (1.3-6.7); Neutrophils Percent Auto 84.8 % (45.5-73.1); Nucleated Red Blood Cells Absolute Auto 0.1 K/mm3 (0.0-0.012); Nucleated Red Blood Cells Perc 0.4 % (0.0-0.2); Platelet Count Result 222 k/mm3 (150-375); Red Blood Count 4.41 M/mm3 (4.2-5.4); Red Cell Distribution Width 27.3 % (11.5-14.5); White Blood Count 12.8 K/mm3 (4.5-10.0)
[2022-05-11 05:25] LABS: Alanine Aminotransferase 60 U/L (6-35); Aspartate Amino Transferase 87 U/L (14-36); Estimated CRCL calculation 43 ml/min; Estimated Glomerular Filt Rate 39
[2022-05-11] MEDS: GABAPENTIN 100 MG CAPSULE PO ×3 (06:10→21:09)
[2022-05-11] MEDS: HEPARIN SODIUM 5,000 UNITS/ML VIAL 5000 UNITS SUB-Q ×3 (06:10→21:09)
[2022-05-11] MEDS: POLYSACCHARIDE IRON COMPLEX 150 MG CAPSULE PO ×2 (09:04→17:32)
[2022-05-11] MEDS: FUROSEMIDE 40 MG TABLET 80 MG PO ×2 (09:04→17:32)
[2022-05-11] MEDS: EZETIMIBE 10 MG TABLET PO (09:04)
[2022-05-11] MEDS: PANTOPRAZOLE 40 MG TABLET PO ×2 (09:05→17:32)
[2022-05-11] MEDS: polyethylene glycoL 3350 17 GM POWD.PACK PO (09:05)
[2022-05-11] MEDS: UMECLIDINIUM BROMIDE 62.5 MCG ELLIPTA 1 PUFF INHALATION (09:18)
--- NOTE | 2022-05-11 11:49 | PM.IMPN ---
Progress Note: A&P Assessment and Plan (1) Acute and chronic respiratory failure: Code(s): J96.20 - Acute and chronic respiratory failure, unspecified whether with hypoxia or hypercapnia Status: Acute Assessment and Plan: Secondary to COVID (tested positive 05/03/22) and heart failure (echo 11/20 showed +PFO on bubble study, EF 65%, grade I diastolic dysfunction, severe pulm HTN) Continues on 40 L and 60% FiO2 on Airvo, attempting to wean as able Dexamethasone 6 mg daily, day 6 of today, started May 03, 2022 Not a candidate for remdesevir or FARTUN inhibitor s/p course or abx (2) Acute on chronic kidney failure: Code(s): N17.9 - Acute kidney failure, unspecified; N18.9 - Chronic kidney disease, unspecified Status: Acute Assessment and Plan: creatinine stable. Baseline creatinine around 2. Home p.o. diuretics restarted by Nephrology (3) Pulmonary hypertension: Code(s): I27.20 - Pulmonary hypertension, unspecified Status: Acute Assessment and Plan: Appreciate pulmonology consultation (4) Chronic anemia: Code(s): D64.9 - Anemia, unspecified Status: Acute Assessment and Plan: Appreciate GI input. No urgent need for endoscopy. (5) Acute exacerbation of congestive heart failure: Code(s): I50.9 - Heart failure, unspecified Status: Acute Assessment and Plan: Appreciate cardiology consultation, continue diuresis with Lasix IV (6) COVID-19: Code(s): U07.1 - COVID-19 Status: Acute Assessment and Plan: Continue dexamethasone, not a candidate for remdesivir, see above (7) Sleep apnea: Code(s): G47.30 - Sleep apnea, unspecified Status: Acute Assessment and Plan: Continue Airvo, noncompliant with CPAP at home Subjective Date/time seen: 05/11/22 11:49 on airvo 40L at 40% which is slightly better overall denies sob Exam Narrative: General: No acute distress, alert and oriented per baseline, appears to be comfortable on high-flow oxygen, currently on 50 L at 60% FiO2, attempting to wean HEENT: Atraumatic, normocephalic, mucous membranes moist CV: Regular rate and rhythm, S1, S2 Lungs: Diminished breath sounds, coarse throughout, very diminished at bases Abdomen: Soft, nontender, nondistended Extremities: Normal to inspection Skin: No rashes noted, no lesions or wounds seen Psych: Euthymic, normal affect Const: General: in distress mild (Respiratory) HENMT: Mouth: Yes moist mucous membranes Eyes: General: appearance normal, both eyes and all related structures Pupils: Equal, round and reactive pupils present EOM: EOMs intact bilaterally Neck: Neck: supple and No no JVD (There is approximately 1 in or JVD bilaterally.) Resp: Effort & Inspection: abnormal respiratory effort (Patient currently tachypneic and showing signs of dyspnea.) Auscultation: crackles, rales, rhonchi, wheezes and diminished lung sounds Other: Patient without adventitious lung sounds in all altman and/or decreased in all altman. Cardio: Rate: regular rate Rhythm: regular rhythm Heart sounds: no gallops, Murmur heart sound present diastolic and systolic and no rubs Other: There is mild displacement of PMI to the left lateral. GI: Inspection: non-distended Auscultation: normal bowel sounds : Other: Deferred Skin: General skin exam: normal color, no rashes or lesions noted and no erythema Lesions: no lesions noted Rashes: no rashes noted Wounds: wound noted Neuro: Cranial nerves: Yes Equal, round and reactive pupils present Speech: normal speech Motor exam (neuro): Normal motor muscle tone present throughout and Abnormal motor strength present (Generalized weakness.) Sensory Exam: normal sensation Extrem: General: edema (Pitting 1+ to 2+ edema bilaterally.) bilateral and pedal edema Psych: Mental Status: mental status grossly normal Affect: normal affect Objective Data Vital Signs Vital Si
[2022-05-11] MEDS: BARICITINIB 2 MG TABLET PO (12:23)
--- NOTE | 2022-05-11 15:32 | PM.PNNEP ---
Progress Note: A&P Assessment and Plan (1) Chronic kidney disease, stage IV (severe): Code(s): N18.4 - Chronic kidney disease, stage 4 (severe) Status: Chronic Assessment and Plan: due to hypertension, diabetes, vascular disease, and chronic pre renal azotemia (from necessity of diuretic therapy) baseline creatinine is ~ 2.5mg/dl creatinine better than baseline at this time continue diuretic therapy (2) Acute and chronic respiratory failure: Code(s): J96.20 - Acute and chronic respiratory failure, unspecified whether with hypoxia or hypercapnia Status: Acute Assessment and Plan: secondary to COVID-19 infection and exacerbation of heart failure complicated by known COPD, pulmonary HTM, GUANACO on steroids s/p course of antibiotics (3) Pneumonia due to COVID-19 virus: Code(s): U07.1 - COVID-19; J12.82 - Pneumonia due to coronavirus disease 2018 Status: Acute Assessment and Plan: on steroids, isolation, and supplemental oxygen continue supportive care (4) CHF exacerbation: Qualifiers: Heart failure type: diastolic Qualified Code(s): I50.33 - Acute on chronic diastolic (congestive) heart failure Code(s): I50.9 - Heart failure, unspecified Status: Resolved Assessment and Plan: due to her pulmonary hypertension and tricuspid regurgitation continue diuretic therapy follow I/Os and daily weights (5) Hypertension: Qualifiers: Hypertension type: essential hypertension Qualified Code(s): I10 - Essential (primary) hypertension Code(s): I10 - Essential (primary) hypertension Status: Chronic Assessment and Plan: reasonable control follow trend of hemodynamics (6) Diabetes mellitus: Qualifiers: Diabetes mellitus type: type 2 Diabetes mellitus halfway insulin use: without halfway use Diabetes mellitus complication status: with hyperglycemia Qualified Code(s): E11.65 - Type 2 diabetes mellitus with hyperglycemia Code(s): E11.9 - Type 2 diabetes mellitus without complications Status: Chronic Assessment and Plan: follow accuchecks glycemic control Will continue to follow. Subjective Date/time seen: 05/11/22 15:32 Breathing/respiratory status appears relatively stable at this time; negative fluid balance noted in the last 24 - 48 hours with current diuretic therapy and relative stability in renal function/creatinine; no other acute issues/events overnight or earlier this AM . Exam Narrative: General: WD/WN AA female in NAD Heart: normal S1 and S2; no rub Lungs: coarse breath sound throughout Abdomen: soft, nontender, nondistended, positive bowel sounds Extremities: no cyanosis or clubbing; 1+ edema Skin: no rash Objective Data Vital Signs Vital Signs: Vital Signs Temp Pulse Resp BP Pulse Ox O2 Del Method O2 Flow Rate 05/11/22 14:00 101 H 05/11/22 14:29 106 H 91 High Flow Therapy with Na 40 05/11/22 12:00 92 High Flow Therapy with Na 40 05/11/22 12:00 83 05/11/22 12:00 36.3 C L 88 20 96/60 L 100 05/11/22 10:00 100 05/11/22 08:00 81 05/11/22 09:19 96 92 High Flow Therapy with Na 40 05/11/22 09:11 95 High Flow Therapy with Na 40 05/11/22 08:00 98 BiPAP 05/11/22 08:00 36.0 C L 82 21 H 110/70 97 05/11/22 06:00 79 05/11/22 04:00 36.6 C 82 20 102/70 94 05/11/22 04:00 84 20 98 BiPAP 05/11/22 04:00 84 05/10/22 20:00 84 95 High Flow Therapy with Na 40 05/11/22 02:45 84 20 98 BiPAP 05/11/22 02:00 92 05/11/22 00:00 88 22 H 95 BiPAP 05/11/22 00:00 88 05/10/22 23:30 86 25 H 100 BiPAP 05/11/22 00:00 36.6 C 87 22 H 110/74 95 05/10/22 22:00 89 05/10/22 20:00 106 H 20 97 High Flow Therapy with Na 40 05/10/22 20:00 106 H 05/10/22 20:00 36.7 C 105 H
--- NOTE | 2022-05-11 15:32 | P.PNNP_ITS ---
Progress Note: A&P Assessment and Plan (1) Chronic kidney disease, stage IV (severe): Code(s): N18.4 - Chronic kidney disease, stage 4 (severe) Status: Chronic Assessment and Plan: * due to hypertension, diabetes, vascular disease, and chronic pre renal azotemia (from necessity of diuretic therapy) * baseline creatinine is ~ 2.5mg/dl * creatinine better than baseline at this time * continue diuretic therapy (2) Acute and chronic respiratory failure: Code(s): J96.20 - Acute and chronic respiratory failure, unspecified whether with hypoxia or hypercapnia Status: Acute Assessment and Plan: * secondary to COVID-19 infection and exacerbation of heart failure * complicated by known COPD, pulmonary HTM, GUANACO * on steroids * s/p course of antibiotics (3) Pneumonia due to COVID-19 virus: Code(s): U07.1 - COVID-19; J12.82 - Pneumonia due to coronavirus disease 2018 Status: Acute Assessment and Plan: * on steroids, isolation, and supplemental oxygen * continue supportive care (4) CHF exacerbation: Qualifiers: Heart failure type: diastolic Qualified Code(s): I50.33 - Acute on chronic diastolic (congestive) heart failure Code(s): I50.9 - Heart failure, unspecified Status: Resolved Assessment and Plan: * due to her pulmonary hypertension and tricuspid regurgitation * continue diuretic therapy * follow I/Os and daily weights (5) Hypertension: Qualifiers: Hypertension type: essential hypertension Qualified Code(s): I10 - Essential (primary) hypertension Code(s): I10 - Essential (primary) hypertension Status: Chronic Assessment and Plan: * reasonable control * follow trend of hemodynamics (6) Diabetes mellitus: Qualifiers: Diabetes mellitus type: type 2 Diabetes mellitus usp insulin use: without usp use Diabetes mellitus complication status: with hyperglycemia Qualified Code(s): E11.65 - Type 2 diabetes mellitus with hyperglycemia Code(s): E11.9 - Type 2 diabetes mellitus without complications Status: Chronic Assessment and Plan: * follow accuchecks * glycemic control Will continue to follow. Subjective Date/time seen: 05/11/22 15:32 Breathing/respiratory status appears relatively stable at this time; negative fluid balance noted in the last 24 - 48 hours with current diuretic therapy and relative stability in renal function/creatinine; no other acute issues/events overnight or earlier this AM . Exam Narrative: General: WD/WN AA female in NAD Heart: normal S1 and S2; no rub Lungs: coarse breath sound throughout Abdomen: soft, nontender, nondistended, positive bowel sounds Extremities: no cyanosis or clubbing; 1+ edema Skin: no rash Objective Data Vital Signs Vital Signs: Vital Signs Temp Pulse Resp BP Pulse Ox O2 Del Method O2 Flow Rate 05/11/22 14:00 101 H 05/11/22 14:29 106 H 91 High Flow Therapy with Na 40 05/11/22 12:00 92 High Flow Therapy with Na 40 05/11/22 12:00 83 05/11/22 12:00 36.3 C L 88 20 96/60 L 100 05/11/22 10:00 100 05/11/22 08:00 81 05/11/22 09:19 96 92 High Flow Therapy with Na 40 05/11/22 09:11 95 High
--- NOTE | 2022-05-11 18:38 | PM.PNPUL ---
Progress Note: A&P Assessment and Plan (1) Pneumonia due to 2019-nCoV: Code(s): U07.1 - COVID-19; J12.82 - Pneumonia due to coronavirus disease 2018 Status: Acute Assessment and Plan: This 62 year old female was admitted May 03 with hypoxemia, saturation in the high 70s low 80s, cough, green sputum, increased shortness of breath and weakness, not able to walk for 3 days [employer], SARS-CoV-2 PCR (+) on May 03 after exposure to her male friend who was sick enough to be admitted April 25-April 28. She has multiple abnormal lab studies consistent with COVID pneumonia with sepsis. She is not a candidate for remdesivir due to her acute on chronic renal failure BUN is 115 creatinine 3.0, CXR shows patchy bilateral infiltrates, and she is requiring AirVo with moderately high amounts of O2, 60 L/min and 60%. She is normally on 4 L/min at baseline, so her current need is not unexpected. She has had 1 COVID vaccination. Baricitinib is an option for severe disease, although her creat clearance is really low, 24, and has chronic lung disease. She is not a good candidate for this medication. (2) Acute on chronic respiratory failure with hypoxia and hypercapnia: Code(s): J96.21 - Acute and chronic respiratory failure with hypoxia; J96.22 - Acute and chronic respiratory failure with hypercapnia Status: Acute Assessment and Plan: She has long standing chronic hypoxemic respiratory failure, was on O2 4 L/min and 5 L/min with exertion before Oct 2020 admission; she is on higher O2 with acute episode of COVID pneumonia. [facility] is switching between AirVO and BiPPAP. She has the additional issue of decompensated cardiac function, defer to Dr Hopkins the exact degree of problem; she has diastolic problem and apparently right heart failure which is acute on chronic. Untreated GUANACO is making these problems worse. She has a PAP machine, possibly a NPPV at home, does not use. (3) Acute on chronic kidney failure: Code(s): N17.9 - Acute kidney failure, unspecified; N18.9 - Chronic kidney disease, unspecified Status: Acute Assessment and Plan: BUN and creat were up, way out of range from her usual baseline, 115/3.0 and now down to 43 and 1.7, much better. Her usual range is 20-40 BUN in creat 1.4 - 1.9 over last 6 months. (4) Pulmonary hypertension: Code(s): I27.20 - Pulmonary hypertension, unspecified Status: Acute Assessment and Plan: Severe pulmonary hypertension on echo early in 2021, PA pressure 69 mmHg, no information about her treatment at [facility] in November 2021. Echo 05/10 = PA pressure 84mmHg. Multifactorial causes, COPD, chronic resp failure, CHF, and PFO. Not sure is she had Rx for this at [facility] in Nov. (5) Chronic obstructive pulmonary disease: Code(s): J44.9 - Chronic obstructive pulmonary disease, unspecified Status: Acute Assessment and Plan: She has emphysema on CT imaging, has had increased pC02 on occasion, not this admission. She can continue LAMA inhaled, does not need inhaled steroid while she is on dexamethasone. She has been treated with 3 long acting medications at home. She has not had an office visit since 2011 due to multiple admissions since then. Last PFT 09/15/2020; FEV1 61%, 1.56 L; FVC 61%, 2.12 L; FEV1/FVC = 73%; TLC 446%, RV 24%, RV/TLC 20%, Raw 229; DLCO 24%, DLCO/VA 71%. (6) Obstructive sleep apnea: Code(s): G47.33 - Obstructive sleep apnea (adult) (pediatric) Status: Acute Assessment and Plan: Last sleep study 08/13/2020 AHI 11.7, severely hypoxemic on baseline, optimal pressure BiPAP 12/7 with 6 L of oxygen
[2022-05-11] MEDS: ALBUTEROL SULFATE (*SP) AEROSOL 1 PUFF 2 PUFF INHALATION (19:59)
[2022-05-11] MEDS: SENNA/DOCUSATE SODIUM TABLET 1 TAB PO (21:08)
[2022-05-12] VITALS (18 sets, daily range): BP systolic 94–125; BP diastolic 57–79; PULSE 83–106; RESP 20–24; TEMP 36.2–37.1; O2SAT 90–100
[2022-05-12] MEDS: GABAPENTIN 100 MG CAPSULE PO ×3 (05:25→21:40)
[2022-05-12] MEDS: HEPARIN SODIUM 5,000 UNITS/ML VIAL 5000 UNITS SUB-Q ×3 (05:28→21:39)
[2022-05-12 05:34] LABS: Basophils Percent Auto 0.1 % (0.2-1.2); Eosinophils Absolute Auto 0.1 K/mm3 (0-0.3); Eosinophils Percent Auto 0.6 % (0-4.4); Hematocrit 29.2 % (37.0-47.0); Hemoglobin 8.9 g/dL (12.0-15.0); Immature Granulocyte Absolute 0.04 K/mm3 (0.00-0.031); Immature Granulocyte Percent A 0.3 % (0-0.5); Immature Platelet Fraction Pct 7.9 % (0.9-11.2); Lymphocytes Absolute Auto 1.48 K/mm3 (0.9-3.2); Lymphocytes Percent Auto 12.3 % (18.3-44.2); Mean Corpuscular HGB Conc 30.5 g/dl (32-36); Mean Corpuscular Hemoglobin 21.2 pg (26-34); Mean Corpuscular Volume 69.7 fl (80-100); Monocytes Absolute Auto 0.6 K/mm3 (0.1-0.6); Monocytes Percent Auto 5.1 % (2.6-8.5); Neutrophils Absolute Auto 9.9 K/mm3 (1.3-6.7); Neutrophils Percent Auto 81.6 % (45.5-73.1); Nucleated Red Blood Cells Perc 0.2 % (0.0-0.2); Platelet Count Result 220 k/mm3 (150-375); Red Blood Count 4.19 M/mm3 (4.2-5.4); Red Cell Distribution Width 27.5 % (11.5-14.5); White Blood Count 12.1 K/mm3 (4.5-10.0)
[2022-05-12 05:41] LABS: Alanine Aminotransferase 53 U/L (6-35); Aspartate Amino Transferase 84 U/L (14-36); Estimated CRCL calculation 39 ml/min; Estimated Glomerular Filt Rate 37
[2022-05-12 06:18] LABS: Anisocytosis 2+ (NORMAL); Hypochromasia 1+ (NORMAL); Platelet Estimate Adequate (Adequate); Target Cells 2+ (NORMAL); Tear Drop Cells 1+ (NORMAL)
[2022-05-12 06:19] LABS: Acanthocytes 1+ (NORMAL); Helmet Cells 1+ (NORMAL); Ovalocytes 2+ (NORMAL); Schistocytes 1+ (NORMAL)
[2022-05-12 06:50] LABS: D Dimer 1.71 ug/mL (<0.48)
[2022-05-12 07:41] LABS: CRP 0.6 mg/dL (<1.0)
[2022-05-12] MEDS: UMECLIDINIUM BROMIDE 62.5 MCG ELLIPTA 1 PUFF INHALATION (08:33)
[2022-05-12] MEDS: PANTOPRAZOLE 40 MG TABLET PO ×2 (08:35→17:45)
[2022-05-12] MEDS: POLYSACCHARIDE IRON COMPLEX 150 MG CAPSULE PO ×2 (08:35→17:45)
[2022-05-12] MEDS: FUROSEMIDE 40 MG TABLET 80 MG PO ×2 (08:35→17:45)
[2022-05-12] MEDS: EZETIMIBE 10 MG TABLET PO (08:36)
[2022-05-12] MEDS: polyethylene glycoL 3350 17 GM POWD.PACK PO (08:36)
--- NOTE | 2022-05-12 11:57 | PM.IMPN ---
Progress Note: A&P Assessment and Plan (1) Acute and chronic respiratory failure: Code(s): J96.20 - Acute and chronic respiratory failure, unspecified whether with hypoxia or hypercapnia Status: Acute Assessment and Plan: Secondary to COVID (tested positive 05/03/22) and heart failure (echo 11/20 showed +PFO on bubble study, EF 65%, grade I diastolic dysfunction, severe pulm HTN) Continues on 40 L and 60% FiO2 on Airvo, attempting to wean as able Dexamethasone 6 mg daily, day 6 of today, started May 03, 2022 Not a candidate for remdesevir or FARTUN inhibitor s/p course or abx To note that a patient is on oxygen at home between 2 and 4liters. (2) Acute on chronic kidney failure: Code(s): N17.9 - Acute kidney failure, unspecified; N18.9 - Chronic kidney disease, unspecified Status: Acute Assessment and Plan: creatinine stable. Baseline creatinine around 2. Home p.o. diuretics restarted by Nephrology (3) Pulmonary hypertension: Code(s): I27.20 - Pulmonary hypertension, unspecified Status: Acute Assessment and Plan: Appreciate pulmonology consultation (4) Chronic anemia: Code(s): D64.9 - Anemia, unspecified Status: Acute Assessment and Plan: Appreciate GI input. No urgent need for endoscopy. (5) Acute exacerbation of congestive heart failure: Code(s): I50.9 - Heart failure, unspecified Status: Acute Assessment and Plan: Appreciate cardiology consultation, continue diuresis with Lasix IV (6) COVID-19: Code(s): U07.1 - COVID-19 Status: Acute Assessment and Plan: Continue dexamethasone, not a candidate for remdesivir, see above (7) Sleep apnea: Code(s): G47.30 - Sleep apnea, unspecified Status: Acute Assessment and Plan: Continue Airvo, noncompliant with CPAP at home Subjective Date/time seen: 05/12/22 11:57 Patient remains on airvo Exam Narrative: General: No acute distress, alert and oriented per baseline, appears to be comfortable on high-flow oxygen, currently on 50 L at 60% FiO2, attempting to wean HEENT: Atraumatic, normocephalic, mucous membranes moist CV: Regular rate and rhythm, S1, S2 Lungs: Diminished breath sounds, coarse throughout, very diminished at bases Abdomen: Soft, nontender, nondistended Extremities: Normal to inspection Skin: No rashes noted, no lesions or wounds seen Psych: Euthymic, normal affect Const: General: in distress mild (Respiratory) HENMT: Mouth: Yes moist mucous membranes Eyes: General: appearance normal, both eyes and all related structures Pupils: Equal, round and reactive pupils present EOM: EOMs intact bilaterally Neck: Neck: supple and No no JVD (There is approximately 1 in or JVD bilaterally.) Resp: Effort & Inspection: abnormal respiratory effort (Patient currently tachypneic and showing signs of dyspnea.) Auscultation: crackles, rales, rhonchi, wheezes and diminished lung sounds Other: Patient without adventitious lung sounds in all altman and/or decreased in all altman. Cardio: Rate: regular rate Rhythm: regular rhythm Heart sounds: no gallops, Murmur heart sound present diastolic and systolic and no rubs Other: There is mild displacement of PMI to the left lateral. GI: Inspection: non-distended Auscultation: normal bowel sounds : Other: Deferred Skin: General skin exam: normal color, no rashes or lesions noted and no erythema Lesions: no lesions noted Rashes: no rashes noted Wounds: wound noted Neuro: Cranial nerves: Yes Equal, round and reactive pupils present Speech: normal speech Motor exam (neuro): Normal motor muscle tone present throughout and Abnormal motor strength present (Generalized weakness.) Sensory Exam: normal sensation Extrem: General: edema (Pitting 1+ to 2+ edema bilaterally.) bilateral and pedal edema Psych: Mental Status: mental status grossly normal Affect: normal affect Objective
[2022-05-12] MEDS: BARICITINIB 2 MG TABLET PO (12:34)
--- NOTE | 2022-05-12 13:08 | P.PNNP_ITS ---
Progress Note: A&P Assessment and Plan (1) Chronic kidney disease, stage IV (severe): Code(s): N18.4 - Chronic kidney disease, stage 4 (severe) Status: Chronic Assessment and Plan: * due to hypertension, diabetes, vascular disease, and chronic pre renal azotemia (from necessity of diuretic therapy) * baseline creatinine is ~ 2.5mg/dl * creatinine better than baseline at this time * continue diuretic therapy (2) Acute and chronic respiratory failure: Code(s): J96.20 - Acute and chronic respiratory failure, unspecified whether with hypoxia or hypercapnia Status: Acute Assessment and Plan: * secondary to COVID-19 infection and exacerbation of heart failure * complicated by known COPD, pulmonary HTM, GUANACO * on steroids * s/p course of antibiotics (3) Pneumonia due to COVID-19 virus: Code(s): U07.1 - COVID-19; J12.82 - Pneumonia due to coronavirus disease 2018 Status: Acute Assessment and Plan: * on steroids, isolation, baricitinib and supplemental oxygen * continue supportive care (4) CHF exacerbation: Qualifiers: Heart failure type: diastolic Qualified Code(s): I50.33 - Acute on chronic diastolic (congestive) heart failure Code(s): I50.9 - Heart failure, unspecified Status: Resolved Assessment and Plan: * due to her pulmonary hypertension and tricuspid regurgitation * continue diuretic therapy * follow I/Os and daily weights (5) Hypertension: Qualifiers: Hypertension type: essential hypertension Qualified Code(s): I10 - Essential (primary) hypertension Code(s): I10 - Essential (primary) hypertension Status: Chronic Assessment and Plan: * reasonable control * follow trend of hemodynamics (6) Diabetes mellitus: Qualifiers: Diabetes mellitus complication status: with hyperglycemia Diabetes mellitus watermelon inspector insulin use: without watermelon inspector use Diabetes mellitus type: type 2 Qualified Code(s): E11.65 - Type 2 diabetes mellitus with hyperglycemia Code(s): E11.9 - Type 2 diabetes mellitus without complications Status: Chronic Assessment and Plan: * follow accuchecks * glycemic control Will continue to follow. Subjective Date/time seen: 05/12/22 13:08 Respiratory status seems relatively stable with all interventions to date; continues to have good urine output (with diuretic therapy) with relative stability in renal function; no other issues/events overnight or earlier this AM. Exam Narrative: General: WD/WN AA female in NAD Heart: normal S1 and S2; no rub Lungs: coarse breath sound throughout Abdomen: soft, nontender, nondistended, positive bowel sounds Extremities: no cyanosis or clubbing; 1+ edema Skin: no nodules Objective Data Vital Signs Vital Signs: Vital Signs Temp Pulse Resp BP Pulse Ox O2 Del Method O2 Flow Rate 05/12/22 12:00 36.6 C 86 22 H 94/61 L 98 05/12/22 08:34 90 High Flow Therapy with Na 40 05/12/22 08:48 92 05/12/22 08:00 36.2 C L 96 20 102/70 90 05/12/22 07:13 93 High Flow Therapy with Na 40 05/12/22 06:00 83 05/12/22 04:00 36.6 C 83 24 H 106/70 100 05/12/22 04:00 84 22 H 97 BiPAP 05/12/22 04:00 84
--- NOTE | 2022-05-12 13:08 | PM.PNNEP ---
Progress Note: A&P Assessment and Plan (1) Chronic kidney disease, stage IV (severe): Code(s): N18.4 - Chronic kidney disease, stage 4 (severe) Status: Chronic Assessment and Plan: due to hypertension, diabetes, vascular disease, and chronic pre renal azotemia (from necessity of diuretic therapy) baseline creatinine is ~ 2.5mg/dl creatinine better than baseline at this time continue diuretic therapy (2) Acute and chronic respiratory failure: Code(s): J96.20 - Acute and chronic respiratory failure, unspecified whether with hypoxia or hypercapnia Status: Acute Assessment and Plan: secondary to COVID-19 infection and exacerbation of heart failure complicated by known COPD, pulmonary HTM, GUANACO on steroids s/p course of antibiotics (3) Pneumonia due to COVID-19 virus: Code(s): U07.1 - COVID-19; J12.82 - Pneumonia due to coronavirus disease 2018 Status: Acute Assessment and Plan: on steroids, isolation, baricitinib and supplemental oxygen continue supportive care (4) CHF exacerbation: Qualifiers: Heart failure type: diastolic Qualified Code(s): I50.33 - Acute on chronic diastolic (congestive) heart failure Code(s): I50.9 - Heart failure, unspecified Status: Resolved Assessment and Plan: due to her pulmonary hypertension and tricuspid regurgitation continue diuretic therapy follow I/Os and daily weights (5) Hypertension: Qualifiers: Hypertension type: essential hypertension Qualified Code(s): I10 - Essential (primary) hypertension Code(s): I10 - Essential (primary) hypertension Status: Chronic Assessment and Plan: reasonable control follow trend of hemodynamics (6) Diabetes mellitus: Qualifiers: Diabetes mellitus complication status: with hyperglycemia Diabetes mellitus residential insulin use: without watermaster use Diabetes mellitus type: type 2 Qualified Code(s): E11.65 - Type 2 diabetes mellitus with hyperglycemia Code(s): E11.9 - Type 2 diabetes mellitus without complications Status: Chronic Assessment and Plan: follow accuchecks glycemic control Will continue to follow. Subjective Date/time seen: 05/12/22 13:08 Respiratory status seems relatively stable with all interventions to date; continues to have good urine output (with diuretic therapy) with relative stability in renal function; no other issues/events overnight or earlier this AM. Exam Narrative: General: WD/WN AA female in NAD Heart: normal S1 and S2; no rub Lungs: coarse breath sound throughout Abdomen: soft, nontender, nondistended, positive bowel sounds Extremities: no cyanosis or clubbing; 1+ edema Skin: no nodules Objective Data Vital Signs Vital Signs: Vital Signs Temp Pulse Resp BP Pulse Ox O2 Del Method O2 Flow Rate 05/12/22 12:00 36.6 C 86 22 H 94/61 L 98 05/12/22 08:34 90 High Flow Therapy with Na 40 05/12/22 08:48 92 05/12/22 08:00 36.2 C L 96 20 102/70 90 05/12/22 07:13 93 High Flow Therapy with Na 40 05/12/22 06:00 83 05/12/22 04:00 36.6 C 83 24 H 106/70 100 05/12/22 04:00 84 22 H 97 BiPAP 05/12/22 04:00 84 05/12/22 01:45 100 22 H 97 BiPAP 05/12/22 02:00 85 05/12/22 00:00 36.2 C L 93 24 H 106/79 100 05/12/22 00:00 90 05/12/22 00:00 90 24 H 97 BiPAP 05/11/22 20:00 102 H 24 H 05/11/22 20:00 102 H 24 H 97 High Flow Therapy with Na 40 05/11/22 20:00 102 H 24 H 97 BiPAP 05/11/22 22:00 89 05/11/22 20:00 96 05/11/22 20:00 109 H 28 H 99 High Flow Therapy with Na 40 05/11/22 20:00 36.2 C L 109 H 28 H 105/72 99 05/11/22 18:00 116 H 05/11/22 16:00 95 High Flow Therapy with Na 40 05/11/22 16:00 36.3 C L 96 20 111/65 100 05/11/22 16:00 96 05/11/22 14:00 101 H
[2022-05-12] MEDS: SENNA/DOCUSATE SODIUM TABLET 1 TAB PO (21:40)
[2022-05-13] VITALS (13 sets, daily range): BP systolic 97–102; BP diastolic 57–67; PULSE 85–99; RESP 20–25; TEMP 36.5–37.1; O2SAT 91–100
[2022-05-13 05:03] LABS: Basophils Percent Auto 0.1 % (0.2-1.2); Eosinophils Absolute Auto 0.1 K/mm3 (0-0.3); Eosinophils Percent Auto 0.5 % (0-4.4); Hematocrit 30.8 % (37.0-47.0); Hemoglobin 8.9 g/dL (12.0-15.0); Immature Granulocyte Absolute 0.04 K/mm3 (0.00-0.031); Immature Granulocyte Percent A 0.3 % (0-0.5); Immature Platelet Fraction Pct 8.7 % (0.9-11.2); Lymphocytes Absolute Auto 1.64 K/mm3 (0.9-3.2); Lymphocytes Percent Auto 13.7 % (18.3-44.2); Mean Corpuscular HGB Conc 28.9 g/dl (32-36); Mean Corpuscular Volume 72.8 fl (80-100); Monocytes Absolute Auto 0.7 K/mm3 (0.1-0.6); Monocytes Percent Auto 5.5 % (2.6-8.5); Neutrophils Absolute Auto 9.6 K/mm3 (1.3-6.7); Neutrophils Percent Auto 79.9 % (45.5-73.1); Platelet Count Result 234 k/mm3 (150-375); Red Blood Count 4.23 M/mm3 (4.2-5.4); Red Cell Distribution Width 28.4 % (11.5-14.5)
[2022-05-13 05:23] LABS: Platelet Estimate Adequate (Adequate)
[2022-05-13 05:24] LABS: Anisocytosis 1+ (NORMAL); Hypochromasia 1+ (NORMAL); Microcytosis 1+ (NORMAL)
[2022-05-13 05:26] LABS: Target Cells 1+ (NORMAL)
[2022-05-13 06:20] LABS: Alanine Aminotransferase 44 U/L (6-35); Aspartate Amino Transferase 74 U/L (14-36); Estimated CRCL calculation 39 ml/min; Estimated Glomerular Filt Rate 37
[2022-05-13] MEDS: HEPARIN SODIUM 5,000 UNITS/ML VIAL 5000 UNITS SUB-Q ×3 (06:20→21:05)
[2022-05-13] MEDS: GABAPENTIN 100 MG CAPSULE PO ×3 (06:20→20:17)
[2022-05-13] MEDS: UMECLIDINIUM BROMIDE 62.5 MCG ELLIPTA 1 PUFF INHALATION (08:36)
[2022-05-13] MEDS: FUROSEMIDE 40 MG TABLET 80 MG PO ×2 (09:36→17:29)
[2022-05-13] MEDS: PANTOPRAZOLE 40 MG TABLET PO ×2 (09:36→17:29)
[2022-05-13] MEDS: EZETIMIBE 10 MG TABLET PO (09:36)
[2022-05-13] MEDS: POLYSACCHARIDE IRON COMPLEX 150 MG CAPSULE PO ×2 (09:36→17:29)
[2022-05-13] MEDS: BARICITINIB 2 MG TABLET PO (12:06)
--- NOTE | 2022-05-13 12:10 | PM.IMPN ---
Progress Note: A&P Assessment and Plan (1) Acute and chronic respiratory failure: Code(s): J96.20 - Acute and chronic respiratory failure, unspecified whether with hypoxia or hypercapnia Status: Acute Assessment and Plan: Secondary to COVID (tested positive 05/03/22) and heart failure (echo 11/20 showed +PFO on bubble study, EF 65%, grade I diastolic dysfunction, severe pulm HTN) Continues on 40 L and 30% FiO2 on Airvo, attempting to wean as able Completed course of dexamethasone continue baricitinib Not a candidate for remdesevir or FARTUN inhibitor s/p course or abx To note that a patient is on oxygen at home between 2 and 4liters. (2) Acute on chronic kidney failure: Code(s): N17.9 - Acute kidney failure, unspecified; N18.9 - Chronic kidney disease, unspecified Status: Acute Assessment and Plan: creatinine stable. Baseline creatinine around 2. Home p.o. diuretics restarted by Nephrology (3) Pulmonary hypertension: Code(s): I27.20 - Pulmonary hypertension, unspecified Status: Acute Assessment and Plan: Appreciate pulmonology consultation (4) Chronic anemia: Code(s): D64.9 - Anemia, unspecified Status: Acute Assessment and Plan: Appreciate GI input. No urgent need for endoscopy. (5) Acute exacerbation of congestive heart failure: Code(s): I50.9 - Heart failure, unspecified Status: Acute Assessment and Plan: Appreciate cardiology consultation, continue diuresis with Lasix IV (6) COVID-19: Code(s): U07.1 - COVID-19 Status: Acute Assessment and Plan: Continue dexamethasone, not a candidate for remdesivir, see above (7) Sleep apnea: Code(s): G47.30 - Sleep apnea, unspecified Status: Acute Assessment and Plan: Continue Airvo, noncompliant with CPAP at home Subjective Date/time seen: 05/13/22 12:10 Doing okay. No complaints says she feels good Exam Narrative: General: No acute distress, alert and oriented per baseline, appears to be comfortable on high-flow oxygen, currently on 50 L at 60% FiO2, attempting to wean HEENT: Atraumatic, normocephalic, mucous membranes moist CV: Regular rate and rhythm, S1, S2 Lungs: Diminished breath sounds, coarse throughout, very diminished at bases Abdomen: Soft, nontender, nondistended Extremities: Normal to inspection Skin: No rashes noted, no lesions or wounds seen Psych: Euthymic, normal affect Const: General: in distress mild (Respiratory) HENMT: Mouth: Yes moist mucous membranes Eyes: General: appearance normal, both eyes and all related structures Pupils: Equal, round and reactive pupils present EOM: EOMs intact bilaterally Neck: Neck: supple and No no JVD (There is approximately 1 in or JVD bilaterally.) Resp: Effort & Inspection: abnormal respiratory effort (Patient currently tachypneic and showing signs of dyspnea.) Auscultation: crackles, rales, rhonchi, wheezes and diminished lung sounds Other: Patient without adventitious lung sounds in all altman and/or decreased in all altman. Cardio: Rate: regular rate Rhythm: regular rhythm Heart sounds: no gallops, Murmur heart sound present diastolic and systolic and no rubs Other: There is mild displacement of PMI to the left lateral. GI: Inspection: non-distended Auscultation: normal bowel sounds : Other: Deferred Skin: General skin exam: normal color, no rashes or lesions noted and no erythema Lesions: no lesions noted Rashes: no rashes noted Wounds: wound noted Neuro: Cranial nerves: Yes Equal, round and reactive pupils present Speech: normal speech Motor exam (neuro): Normal motor muscle tone present throughout and Abnormal motor strength present (Generalized weakness.) Sensory Exam: normal sensation Extrem: General: edema (Pitting 1+ to 2+ edema bilaterally.) bilateral and pedal edema Psych: Mental Status: mental status grossly normal Affect: normal affect
--- NOTE | 2022-05-13 12:39 | P.PNNP_ITS ---
Progress Note: A&P Assessment and Plan (1) Chronic kidney disease, stage IV (severe): Code(s): N18.4 - Chronic kidney disease, stage 4 (severe) Status: Chronic Assessment and Plan: * due to hypertension, diabetes, vascular disease, and chronic pre renal azotemia (from necessity of diuretic therapy) * baseline creatinine is ~ 2.5mg/dl * creatinine better than baseline at this time * continue diuretic therapy (2) Acute and chronic respiratory failure: Code(s): J96.20 - Acute and chronic respiratory failure, unspecified whether with hypoxia or hypercapnia Status: Acute Assessment and Plan: * secondary to COVID-19 infection and exacerbation of heart failure * complicated by known COPD, pulmonary HTM, GUANACO * finished steroid course * s/p course of antibiotics (3) Pneumonia due to COVID-19 virus: Code(s): U07.1 - COVID-19; J12.82 - Pneumonia due to coronavirus disease 2018 Status: Acute Assessment and Plan: * on isolation, baricitinib and supplemental oxygen * completed course of steroids * continue supportive care (4) CHF exacerbation: Qualifiers: Heart failure type: diastolic Qualified Code(s): I50.33 - Acute on chronic diastolic (congestive) heart failure Code(s): I50.9 - Heart failure, unspecified Status: Resolved Assessment and Plan: * due to her pulmonary hypertension and tricuspid regurgitation * continue diuretic therapy * follow I/Os and daily weights (5) Hypertension: Qualifiers: Hypertension type: essential hypertension Qualified Code(s): I10 - Essential (primary) hypertension Code(s): I10 - Essential (primary) hypertension Status: Chronic Assessment and Plan: * reasonable control * follow trend of hemodynamics (6) Diabetes mellitus: Qualifiers: Diabetes mellitus complication status: with hyperglycemia Diabetes me llitus assistant terminal manager insulin use: without alf use Diabetes mellitus type: type 2 Qualified Code(s): E11.65 - Type 2 diabetes mellitus with hyperglycemia Code(s): E11.9 - Type 2 diabetes mellitus without complications Status: Chronic Assessment and Plan: * follow accuchecks * glycemic control Will continue to follow. Subjective Date/time seen: 05/13/22 12:39 States she feels pretty good at the time of my visit; no apparent distress voiced; no acuteissues/events overnight or earlier this morning; respiratory status appears relatively stable. Exam Narrative: General: WD/WN AA female in NAD Heart: normal S1 and S2; no rub Lungs: coarse breath sound throughout Abdomen: soft, nontender, nondistended, positive bowel sounds Extremities: no cyanosis or clubbing; 1+ edema Skin: warm and dry Objective Data Vital Signs Vital Signs: Vital Signs Temp Pulse Resp BP Pulse Ox O2 Del Method O2 Flow Rate 05/13/22 12:00 37.1 C 94 25 H 100/63 94 05/13/22 12:00 93 High Flow Therapy with Na 40 05/13/22 12:00 93 05/13/22 10:00 93 05/13/22 08:00 85 05/13/22 08:00 93 High Flow Therapy with Na 40 05/13/22 08:00 36.8 C 90 22 H 102/67 94 05/13/22 08:34 93 High Flow Nasal Cannula 40 05/13/22 06:00 87 05/13/22 04:00 8
--- NOTE | 2022-05-13 12:39 | PM.PNNEP ---
Progress Note: A&P Assessment and Plan (1) Chronic kidney disease, stage IV (severe): Code(s): N18.4 - Chronic kidney disease, stage 4 (severe) Status: Chronic Assessment and Plan: due to hypertension, diabetes, vascular disease, and chronic pre renal azotemia (from necessity of diuretic therapy) baseline creatinine is ~ 2.5mg/dl creatinine better than baseline at this time continue diuretic therapy (2) Acute and chronic respiratory failure: Code(s): J96.20 - Acute and chronic respiratory failure, unspecified whether with hypoxia or hypercapnia Status: Acute Assessment and Plan: secondary to COVID-19 infection and exacerbation of heart failure complicated by known COPD, pulmonary HTM, GUANACO finished steroid course s/p course of antibiotics (3) Pneumonia due to COVID-19 virus: Code(s): U07.1 - COVID-19; J12.82 - Pneumonia due to coronavirus disease 2018 Status: Acute Assessment and Plan: on isolation, baricitinib and supplemental oxygen completed course of steroids continue supportive care (4) CHF exacerbation: Qualifiers: Heart failure type: diastolic Qualified Code(s): I50.33 - Acute on chronic diastolic (congestive) heart failure Code(s): I50.9 - Heart failure, unspecified Status: Resolved Assessment and Plan: due to her pulmonary hypertension and tricuspid regurgitation continue diuretic therapy follow I/Os and daily weights (5) Hypertension: Qualifiers: Hypertension type: essential hypertension Qualified Code(s): I10 - Essential (primary) hypertension Code(s): I10 - Essential (primary) hypertension Status: Chronic Assessment and Plan: reasonable control follow trend of hemodynamics (6) Diabetes mellitus: Qualifiers: Diabetes mellitus complication status: with hyperglycemia Diabetes mellitus 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 Subjective Date/time seen: 05/13/22 12:39 States she feels pretty good at the time of my visit; no apparent distress voiced; no acuteissues/events overnight or earlier this morning; respiratory status appears relatively stable. Exam Narrative: General: WD/WN AA female in NAD Heart: normal S1 and S2; no rub Lungs: coarse breath sound throughout Abdomen: soft, nontender, nondistended, positive bowel sounds Extremities: no cyanosis or clubbing; 1+ edema Skin: warm and dry Objective Data Vital Signs Vital Signs: Vital Signs Temp Pulse Resp BP Pulse Ox O2 Del Method O2 Flow Rate 05/13/22 12:00 37.1 C 94 25 H 100/63 94 05/13/22 12:00 93 High Flow Therapy with Na 40 05/13/22 12:00 93 05/13/22 10:00 93 05/13/22 08:00 85 05/13/22 08:00 93 High Flow Therapy with Na 40 05/13/22 08:00 36.8 C 90 22 H 102/67 94 05/13/22 08:34 93 High Flow Nasal Cannula 40 05/13/22 06:00 87 05/13/22 04:00 87 20 98 High Flow Therapy with Na 40 05/13/22 04:00 90 05/13/22 04:00 36.8 C 92 22 H 97/61 L 96 05/13/22 02:00 88 05/13/22 00:00 36.5 C 90 20 99/57 L 95 05/13/22 00:00 91 22 H 91 High Flow Therapy with Na 40 05/13/22 00:00 91 05/12/22 22:00 94 05/12/22 20:00 105 H 05/12/22 21:32 94 High Flow Therapy with Na 40 05/12/22 20:00 37.1 C 85 22 H 125/57 L 96 05/12/22 18:00 106 H 05/12/22 16:00 87 24 H 99 High Flow Therapy with Na 40 05/12/22 16:00 90 05/12/22 16:00 36.4 C 88 24 H 99/63 L 95 05/12/22 17:02 87 94 High Flow Therapy with Na 40 05/12/22 14:00 93
[2022-05-13] MEDS: SENNA/DOCUSATE SODIUM TABLET 1 TAB PO (20:17)
[2022-05-13] MEDS: traMADol HCL (*CRX) 25 MG TABLET PO (20:18)
[2022-05-14] VITALS (17 sets, daily range): BP systolic 93–122; BP diastolic 56–79; PULSE 79–100; RESP 20–25; TEMP 36.4–37.3; O2SAT 91–100
[2022-05-14] MEDS: GABAPENTIN 100 MG CAPSULE PO ×3 (05:50→21:09)
[2022-05-14] MEDS: HEPARIN SODIUM 5,000 UNITS/ML VIAL 5000 UNITS SUB-Q ×3 (05:50→21:10)
[2022-05-14] MEDS: UMECLIDINIUM BROMIDE 62.5 MCG ELLIPTA 1 PUFF INHALATION (08:03)
[2022-05-14 08:08] LABS: Basophils Percent Auto 0.1 % (0.2-1.2); Eosinophils Absolute Auto 0.1 K/mm3 (0-0.3); Eosinophils Percent Auto 0.4 % (0-4.4); Hematocrit 30.1 % (37.0-47.0); Immature Granulocyte Absolute 0.05 K/mm3 (0.00-0.031); Immature Granulocyte Percent A 0.4 % (0-0.5); Lymphocytes Absolute Auto 2.08 K/mm3 (0.9-3.2); Lymphocytes Percent Auto 16.8 % (18.3-44.2); Mean Corpuscular HGB Conc 29.9 g/dl (32-36); Mean Corpuscular Hemoglobin 21.3 pg (26-34); Mean Corpuscular Volume 71.2 fl (80-100); Monocytes Absolute Auto 0.6 K/mm3 (0.1-0.6); Monocytes Percent Auto 5.2 % (2.6-8.5); Neutrophils Absolute Auto 9.5 K/mm3 (1.3-6.7); Neutrophils Percent Auto 77.1 % (45.5-73.1); Platelet Count Result 245 k/mm3 (150-375); Red Blood Count 4.23 M/mm3 (4.2-5.4); Red Cell Distribution Width 28.6 % (11.5-14.5); White Blood Count 12.4 K/mm3 (4.5-10.0)
[2022-05-14 08:19] LABS: Alanine Aminotransferase 43 U/L (6-35); Aspartate Amino Transferase 83 U/L (14-36); Estimated CRCL calculation 39 ml/min; Estimated Glomerular Filt Rate 37
[2022-05-14 08:23] LABS: CRP < 0.5 mg/dL (<1.0)
--- NOTE | 2022-05-14 09:02 | PCPTNOTE ---
Attempted to see patient for PT at this time, however patient's SPO2 SATs were 89%. Per RN advised to wait for therapy and to check back.
[2022-05-14 09:04] LABS: Platelet Estimate Adequate (Adequate)
[2022-05-14 09:05] LABS: Anisocytosis 1+ (NORMAL); Hypochromasia 1+ (NORMAL); Ovalocytes 2+ (NORMAL); Target Cells 1+ (NORMAL); Tear Drop Cells 1+ (NORMAL)
[2022-05-14 09:06] LABS: Acanthocytes 1+ (NORMAL); Helmet Cells 1+ (NORMAL); Schistocytes 1+ (NORMAL)
[2022-05-14 09:13] LABS: D Dimer 1.38 ug/mL (<0.48)
[2022-05-14] MEDS: polyethylene glycoL 3350 17 GM POWD.PACK PO (09:38)
[2022-05-14] MEDS: POLYSACCHARIDE IRON COMPLEX 150 MG CAPSULE PO ×2 (09:38→17:13)
[2022-05-14] MEDS: FUROSEMIDE 40 MG TABLET 80 MG PO ×2 (09:38→17:13)
[2022-05-14] MEDS: PANTOPRAZOLE 40 MG TABLET PO ×2 (09:39→17:13)
[2022-05-14] MEDS: EZETIMIBE 10 MG TABLET PO (09:39)
--- NOTE | 2022-05-14 11:02 | PM.IMPN ---
Progress Note: A&P Assessment and Plan (1) Acute and chronic respiratory failure: Code(s): J96.20 - Acute and chronic respiratory failure, unspecified whether with hypoxia or hypercapnia Status: Acute Assessment and Plan: Secondary to COVID (tested positive 05/03/22) and heart failure (echo 11/20 showed +PFO on bubble study, EF 65%, grade I diastolic dysfunction, severe pulm HTN) Continues on 40 L and 40% FiO2 on Airvo, attempting to wean as able Completed course of dexamethasone continue baricitinib Not a candidate for remdesevir or FARTUN inhibitor s/p course or abx To note that a patient is on oxygen at home between 2 and 4liters. (2) Acute on chronic kidney failure: Code(s): N17.9 - Acute kidney failure, unspecified; N18.9 - Chronic kidney disease, unspecified Status: Acute Assessment and Plan: creatinine stable. Baseline creatinine around 2. Home p.o. diuretics restarted by Nephrology (3) Pulmonary hypertension: Code(s): I27.20 - Pulmonary hypertension, unspecified Status: Acute Assessment and Plan: Appreciate pulmonology consultation (4) Chronic anemia: Code(s): D64.9 - Anemia, unspecified Status: Acute Assessment and Plan: Appreciate GI input. No urgent need for endoscopy. (5) Acute exacerbation of congestive heart failure: Code(s): I50.9 - Heart failure, unspecified Status: Acute Assessment and Plan: Appreciate cardiology consultation, continue diuresis with Lasix IV (6) COVID-19: Code(s): U07.1 - COVID-19 Status: Acute Assessment and Plan: Continue dexamethasone, not a candidate for remdesivir, see above (7) Sleep apnea: Code(s): G47.30 - Sleep apnea, unspecified Status: Acute Assessment and Plan: Continue Airvo, noncompliant with CPAP at home Subjective Date/time seen: 05/14/22 11:02 No complaints Exam Narrative: General: No acute distress, alert and oriented per baseline, appears to be comfortable on high-flow oxygen, currently on 50 L at 60% FiO2, attempting to wean HEENT: Atraumatic, normocephalic, mucous membranes moist CV: Regular rate and rhythm, S1, S2 Lungs: Diminished breath sounds, coarse throughout, very diminished at bases Abdomen: Soft, nontender, nondistended Extremities: Normal to inspection Skin: No rashes noted, no lesions or wounds seen Psych: Euthymic, normal affect Const: General: in distress mild (Respiratory) HENMT: Mouth: Yes moist mucous membranes Eyes: General: appearance normal, both eyes and all related structures Pupils: Equal, round and reactive pupils present EOM: EOMs intact bilaterally Neck: Neck: supple and No no JVD (There is approximately 1 in or JVD bilaterally.) Resp: Effort & Inspection: abnormal respiratory effort (Patient currently tachypneic and showing signs of dyspnea.) Auscultation: crackles, rales, rhonchi, wheezes and diminished lung sounds Other: Patient without adventitious lung sounds in all altman and/or decreased in all altman. Cardio: Rate: regular rate Rhythm: regular rhythm Heart sounds: no gallops, Murmur heart sound present diastolic and systolic and no rubs Other: There is mild displacement of PMI to the left lateral. GI: Inspection: non-distended Auscultation: normal bowel sounds : Other: Deferred Skin: General skin exam: normal color, no rashes or lesions noted and no erythema Lesions: no lesions noted Rashes: no rashes noted Wounds: wound noted Neuro: Cranial nerves: Yes Equal, round and reactive pupils present Speech: normal speech Motor exam (neuro): Normal motor muscle tone present throughout and Abnormal motor strength present (Generalized weakness.) Sensory Exam: normal sensation Extrem: General: edema (Pitting 1+ to 2+ edema bilaterally.) bilateral and pedal edema Psych: Mental Status: mental status grossly normal Affect: normal affect Objective Data Vital Signs Vi
[2022-05-14] MEDS: BARICITINIB 2 MG TABLET PO (11:20)
--- NOTE | 2022-05-14 12:30 | P.PNNP_ITS ---
Progress Note: A&P Assessment and Plan (1) Chronic kidney disease, stage IV (severe): Code(s): N18.4 - Chronic kidney disease, stage 4 (severe) Status: Chronic Assessment and Plan: * due to hypertension, diabetes, vascular disease, and chronic pre renal azotemia (from necessity of diuretic therapy) * baseline creatinine is ~ 2.5mg/dl * creatinine better than baseline at this time * continue diuretic therapy (2) Acute and chronic respiratory failure: Code(s): J96.20 - Acute and chronic respiratory failure, unspecified whether with hypoxia or hypercapnia Status: Acute Assessment and Plan: * secondary to COVID-19 infection and exacerbation of heart failure * complicated by known COPD, pulmonary HTM, GUANACO * finished steroid course * s/p course of antibiotics (3) Pneumonia due to COVID-19 virus: Code(s): U07.1 - COVID-19; J12.82 - Pneumonia due to coronavirus disease 2018 Status: Acute Assessment and Plan: * on isolation, baricitinib and supplemental oxygen * completed course of steroids * continue supportive care (4) CHF exacerbation: Qualifiers: Heart failure type: diastolic Qualified Code(s): I50.33 - Acute on chronic diastolic (congestive) heart failure Code(s): I50.9 - Heart failure, unspecified Status: Resolved Assessment and Plan: * due to her pulmonary hypertension and tricuspid regurgitation * continue diuretic therapy * follow I/Os and daily weights (5) Hypertension: Qualifiers: Hypertension type: essential hypertension Qualified Code(s): I10 - Essential (primary) hypertension Code(s): I10 - Essential (primary) hypertension Status: Chronic Assessment and Plan: * reasonable control * follow trend of hemodynamics (6) Diabetes mellitus: Qualifiers: Diabetes mellitus type: type 2 Diabetes mellitus 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 Subjective Date/time seen: 05/14/22 12:30 Respiratory status remains relatively stable at this time; no apparent issues voiced overnight or earlier this morning; continues to tolerate diuresis with relative stability in renal function/creatinine; no other complaints to report at this time. Exam Narrative: General: WD/WN AA female in NAD Heart: normal S1 and S2; no rub Lungs: coarse breath sound throughout Abdomen: soft, nontender, nondistended, positive bowel sounds Extremities: no cyanosis or clubbing; 1+ edema Skin: warm and intact Objective Data Vital Signs Vital Signs: Vital Signs Temp Pulse Resp BP Pulse Ox O2 Del Method O2 Flow Rate 05/14/22 12:00 96 High Flow Therapy with Na 45 05/14/22 12:00 83 05/14/22 11:39 37.3 C 89 22 H 96/79 L 91 05/14/22 10:00 79 05/14/22 08:00 95 High Flow Therapy with Na 45 05/14/22 08:00 86 05/14/22 08:00 36.7 C 85 24 H 100/56 L 95 05/14/22 08:05 92 High Flow Therapy wi
--- NOTE | 2022-05-14 12:30 | PM.PNNEP ---
Progress Note: A&P Assessment and Plan (1) Chronic kidney disease, stage IV (severe): Code(s): N18.4 - Chronic kidney disease, stage 4 (severe) Status: Chronic Assessment and Plan: due to hypertension, diabetes, vascular disease, and chronic pre renal azotemia (from necessity of diuretic therapy) baseline creatinine is ~ 2.5mg/dl creatinine better than baseline at this time continue diuretic therapy (2) Acute and chronic respiratory failure: Code(s): J96.20 - Acute and chronic respiratory failure, unspecified whether with hypoxia or hypercapnia Status: Acute Assessment and Plan: secondary to COVID-19 infection and exacerbation of heart failure complicated by known COPD, pulmonary HTM, GUANACO finished steroid course s/p course of antibiotics (3) Pneumonia due to COVID-19 virus: Code(s): U07.1 - COVID-19; J12.82 - Pneumonia due to coronavirus disease 2018 Status: Acute Assessment and Plan: on isolation, baricitinib and supplemental oxygen completed course of steroids continue supportive care (4) CHF exacerbation: Qualifiers: Heart failure type: diastolic Qualified Code(s): I50.33 - Acute on chronic diastolic (congestive) heart failure Code(s): I50.9 - Heart failure, unspecified Status: Resolved Assessment and Plan: due to her pulmonary hypertension and tricuspid regurgitation continue diuretic therapy follow I/Os and daily weights (5) Hypertension: Qualifiers: Hypertension type: essential hypertension Qualified Code(s): I10 - Essential (primary) hypertension Code(s): I10 - Essential (primary) hypertension Status: Chronic Assessment and Plan: reasonable control follow trend of hemodynamics (6) Diabetes mellitus: Qualifiers: Diabetes mellitus type: type 2 Diabetes mellitus snf insulin use: without intermediate frame tender use Diabetes mellitus complication status: with hyperglycemia Qualified Code(s): E11.65 - Type 2 diabetes mellitus with hyperglycemia Code(s): E11.9 - Type 2 diabetes mellitus without complications Status: Chronic Assessment and Plan: follow accuchecks glycemic control Will continue to follow. Subjective Date/time seen: 05/14/22 12:30 Respiratory status remains relatively stable at this time; no apparent issues voiced overnight or earlier this morning; continues to tolerate diuresis with relative stability in renal function/creatinine; no other complaints to report at this time. Exam Narrative: General: WD/WN AA female in NAD Heart: normal S1 and S2; no rub Lungs: coarse breath sound throughout Abdomen: soft, nontender, nondistended, positive bowel sounds Extremities: no cyanosis or clubbing; 1+ edema Skin: warm and intact Objective Data Vital Signs Vital Signs: Vital Signs Temp Pulse Resp BP Pulse Ox O2 Del Method O2 Flow Rate 05/14/22 12:00 96 High Flow Therapy with Na 45 05/14/22 12:00 83 05/14/22 11:39 37.3 C 89 22 H 96/79 L 91 05/14/22 10:00 79 05/14/22 08:00 95 High Flow Therapy with Na 45 05/14/22 08:00 86 05/14/22 08:00 36.7 C 85 24 H 100/56 L 95 05/14/22 08:05 92 High Flow Therapy with Na 40 05/13/22 22:00 96 High Flow Therapy with Na 40 05/14/22 04:00 36.8 C 90 22 H 104/61 93 05/14/22 04:00 90 05/14/22 04:00 90 93 High Flow Therapy with Na 40 05/14/22 02:00 92 05/14/22 00:00 97 99 High Flow Therapy with Na 40 05/14/22 00:00 97 05/14/22 00:00 36.5 C 100 22 H 96/62 L 94 05/13/22 22:00 94 05/13/22 20:00 99 05/13/22 20:00 99 100 High Flow Therapy with Na 40 05/13/22 20:00 36.6 C 99 22 H 101/59 L 100 05/13/22 18:00 95 05/13/22 16:00 36.6 C 90 20 97/67 L 97 05/13/22 16:00 88 05/13/22 16:00 93 High Flow Therapy with Na
--- NOTE | 2022-05-14 14:21 | PM.PNPUL ---
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 She has multiple abnormal lab studies consistent with COVID pneumonia with sepsis. She was not a candidate for remdesivir due to her acute on chronic renal failure, now better, 05/11 CXR shows patchy bilateral infiltrates, and she is now on 9 L HFNC off AirVO. She is normally on 4 L/min at baseline, so her current need is improving. She has had 1 COVID vaccination. Baricitinib was started May 07. (2) Acute on chronic respiratory failure with hypoxia and hypercapnia: Code(s): J96.21 - Acute and chronic respiratory failure with hypoxia; J96.22 - Acute and chronic respiratory failure with hypercapnia Status: Acute Assessment and Plan: She has long standing chronic hypoxemic respiratory failure, was on O2 4 L/min and 5 L/min with exertion before Oct 2020 admission; she was on higher O2 with acute episode of COVID pneumonia. Now down to 9 L HFNC off AirVo and is using BiPAP at night. She has additional issue of decompensated cardiac function, diastolic problem and apparently right heart failure which is acute on chronic. Untreated GUANACO is making these problems worse. She has a PAP machine, possibly a NPPV at home, does not use. (3) Acute on chronic kidney failure: Code(s): N17.9 - Acute kidney failure, unspecified; N18.9 - Chronic kidney disease, unspecified Status: Acute Assessment and Plan: BUN and creat were up, way out of range from her usual baseline, 115/3.0 and now creat is 1.7, BUN normal. Much improved. (4) Pulmonary hypertension: Code(s): I27.20 - Pulmonary hypertension, unspecified Status: Acute Assessment and Plan: Severe pulmonary hypertension on echo early in 2021, PA pressure 69 mmHg, no information about her treatment at [facility] in November 2021. Echo 05/10 = PA pressure 84mmHg. Multifactorial causes, COPD, chronic resp failure, CHF, and PFO. Not sure is she had Rx for this at [facility] in Nov. (5) Chronic obstructive pulmonary disease: Code(s): J44.9 - Chronic obstructive pulmonary disease, unspecified Status: Acute Assessment and Plan: She has emphysema on CT imaging, has had increased pC02 on occasion, not this admission. She can continue LAMA inhaled, does not need inhaled steroid while she is on dexamethasone. She has been treated with 3 long acting medications at home. She has not had an office visit since 2011 due to multiple admissions since then. Last PFT 09/15/2020; FEV1 61%, 1.56 L; FVC 61%, 2.12 L; FEV1/FVC = 73%; TLC 446%, RV 24%, RV/TLC 20%, Raw 229; DLCO 24%, DLCO/VA 71%. (6) Obstructive sleep apnea: Code(s): G47.33 - Obstructive sleep apnea (adult) (pediatric) Status: Acute Assessment and Plan: Last sleep study 08/13/2020 AHI 11.7, severely hypoxemic on baseline, optimal pressure BiPAP 12/7 with 6 L of oxygen She is not compliant with PAP at home. Additional Plan * continue dexamethasone, however she is not able have other Rx * O2 support, * DVT prophylaxis, * I reviewed records from [facility]; she was transferred Dec [address] [facility], sta
[2022-05-14] MEDS: WATER FOR IRRIGATION, STERILE 1,000 ML BOTTLE 1000 ML (17:13)
[2022-05-14] MEDS: SENNA/DOCUSATE SODIUM TABLET 1 TAB PO (21:09)
[2022-05-15] VITALS (17 sets, daily range): BP systolic 97–118; BP diastolic 56–78; PULSE 71–98; RESP 18–26; TEMP 36.1–36.9; O2SAT 95–100
[2022-05-15 04:52] LABS: Basophils Percent Auto 0.1 % (0.2-1.2); Eosinophils Absolute Auto 0.2 K/mm3 (0-0.3); Eosinophils Percent Auto 1.2 % (0-4.4); Hematocrit 30.5 % (37.0-47.0); Hemoglobin 8.7 g/dL (12.0-15.0); Immature Granulocyte Absolute 0.06 K/mm3 (0.00-0.031); Immature Granulocyte Percent A 0.4 % (0-0.5); Immature Platelet Fraction Pct 8.1 % (0.9-11.2); Lymphocytes Percent Auto 14.1 % (18.3-44.2); Mean Corpuscular HGB Conc 28.5 g/dl (32-36); Mean Corpuscular Hemoglobin 20.9 pg (26-34); Mean Corpuscular Volume 73.1 fl (80-100); Monocytes Absolute Auto 0.6 K/mm3 (0.1-0.6); Monocytes Percent Auto 4.5 % (2.6-8.5); Neutrophils Absolute Auto 10.8 K/mm3 (1.3-6.7); Neutrophils Percent Auto 79.7 % (45.5-73.1); Platelet Count Result 252 k/mm3 (150-375); Red Blood Count 4.17 M/mm3 (4.2-5.4); Red Cell Distribution Width 28.7 % (11.5-14.5); White Blood Count 13.5 K/mm3 (4.5-10.0)
[2022-05-15 04:58] LABS: Alanine Aminotransferase 42 U/L (6-35); Albumin Level 3.6 g/dL (3.5-5.1); Anion Gap 5 mmol/L (8-16); Aspartate Amino Transferase 78 U/L (14-36); Blood Urea Nitrogen 65 mg/dL (7-17); Calcium 8.7 mg/dL (8.4-10.2); Carbon Dioxide 36 mmol/L (22-30); Chloride 97 mmol/L (98-107); Estimated CRCL calculation 39 ml/min; Estimated Glomerular Filt Rate 37; Glucose 171 mg/dL (65-110); Phosphorus 3.2 mg/dL (2.5-4.5); Potassium 3.8 mmol/L (3.4-5.0); Sodium 138 mmol/L (137-145)
[2022-05-15 05:15] LABS: Platelet Estimate Adequate (Adequate)
[2022-05-15 05:16] LABS: Anisocytosis 1+ (NORMAL)
[2022-05-15 05:17] LABS: Hypochromasia 1+ (NORMAL); Microcytosis 1+ (NORMAL); Target Cells 1+ (NORMAL)
[2022-05-15] MEDS: HEPARIN SODIUM 5,000 UNITS/ML VIAL 5000 UNITS SUB-Q ×3 (05:41→21:00)
[2022-05-15] MEDS: GABAPENTIN 100 MG CAPSULE PO ×3 (05:41→21:00)
[2022-05-15] MEDS: UMECLIDINIUM BROMIDE 62.5 MCG ELLIPTA 1 PUFF INHALATION (08:48)
[2022-05-15] MEDS: FUROSEMIDE 40 MG TABLET 80 MG PO ×2 (09:17→17:12)
[2022-05-15] MEDS: PANTOPRAZOLE 40 MG TABLET PO ×2 (09:17→17:12)
[2022-05-15] MEDS: POLYSACCHARIDE IRON COMPLEX 150 MG CAPSULE PO ×2 (09:17→17:12)
[2022-05-15] MEDS: EZETIMIBE 10 MG TABLET PO (09:17)
[2022-05-15] MEDS: polyethylene glycoL 3350 17 GM POWD.PACK PO (09:18)
--- NOTE | 2022-05-15 10:20 | PM.IMPN ---
Progress Note: A&P Assessment and Plan (1) Acute and chronic respiratory failure: Code(s): J96.20 - Acute and chronic respiratory failure, unspecified whether with hypoxia or hypercapnia Status: Acute Assessment and Plan: Secondary to COVID (tested positive 05/03/22) and heart failure (echo 11/20 showed +PFO on bubble study, EF 65%, grade I diastolic dysfunction, severe pulm HTN) Patient is now on high-flow. Completed course of dexamethasone continue baricitinib Not a candidate for remdesevir or FARTUN inhibitor s/p course or abx To note that a patient is on oxygen at home between 2 and 4liters. (2) Acute on chronic kidney failure: Code(s): N17.9 - Acute kidney failure, unspecified; N18.9 - Chronic kidney disease, unspecified Status: Acute Assessment and Plan: creatinine stable. Baseline creatinine around 2. Home p.o. diuretics restarted by Nephrology (3) Pulmonary hypertension: Code(s): I27.20 - Pulmonary hypertension, unspecified Status: Acute Assessment and Plan: Appreciate pulmonology consultation (4) Chronic anemia: Code(s): D64.9 - Anemia, unspecified Status: Acute Assessment and Plan: Appreciate GI input. No urgent need for endoscopy. (5) Acute exacerbation of congestive heart failure: Code(s): I50.9 - Heart failure, unspecified Status: Acute Assessment and Plan: Appreciate cardiology consultation, continue diuresis with Lasix IV (6) COVID-19: Code(s): U07.1 - COVID-19 Status: Acute Assessment and Plan: Continue dexamethasone, not a candidate for remdesivir, see above (7) Sleep apnea: Code(s): G47.30 - Sleep apnea, unspecified Status: Acute Assessment and Plan: Continue Airvo, noncompliant with CPAP at home Subjective Date/time seen: 05/15/22 10:20 No complaints. No shortness of breath noted subjectively. Patient is now on high-flow which is an improvement. Exam Narrative: General: No acute distress, alert and oriented per baseline, appears to be comfortable on high-flow oxygen, currently on 50 L at 60% FiO2, attempting to wean HEENT: Atraumatic, normocephalic, mucous membranes moist CV: Regular rate and rhythm, S1, S2 Lungs: Diminished breath sounds, coarse throughout, very diminished at bases Abdomen: Soft, nontender, nondistended Extremities: Normal to inspection Skin: No rashes noted, no lesions or wounds seen Psych: Euthymic, normal affect Const: General: in distress mild (Respiratory) HENMT: Mouth: Yes moist mucous membranes Eyes: General: appearance normal, both eyes and all related structures Pupils: Equal, round and reactive pupils present EOM: EOMs intact bilaterally Neck: Neck: supple and No no JVD (There is approximately 1 in or JVD bilaterally.) Resp: Effort & Inspection: abnormal respiratory effort (Patient currently tachypneic and showing signs of dyspnea.) Auscultation: crackles, rales, rhonchi, wheezes and diminished lung sounds Other: Patient without adventitious lung sounds in all altman and/or decreased in all altman. Cardio: Rate: regular rate Rhythm: regular rhythm Heart sounds: no gallops, Murmur heart sound present diastolic and systolic and no rubs Other: There is mild displacement of PMI to the left lateral. GI: Inspection: non-distended Auscultation: normal bowel sounds : Other: Deferred Skin: General skin exam: normal color, no rashes or lesions noted and no erythema Lesions: no lesions noted Rashes: no rashes noted Wounds: wound noted Neuro: Cranial nerves: Yes Equal, round and reactive pupils present Speech: normal speech Motor exam (neuro): Normal motor muscle tone present throughout and Abnormal motor strength present (Generalized weakness.) Sensory Exam: normal sensation Extrem: General: edema (Pitting 1+ to 2+ edema bilaterally.) bilateral and pedal edema Psych: Mental Status: mental status grossly norm
[2022-05-15] MEDS: BARICITINIB 2 MG TABLET PO (11:59)
--- NOTE | 2022-05-15 12:38 | P.PNNP_ITS ---
Progress Note: A&P Assessment and Plan (1) Chronic kidney disease, stage IV (severe): Code(s): N18.4 - Chronic kidney disease, stage 4 (severe) Status: Chronic Assessment and Plan: * due to hypertension, diabetes, vascular disease, and chronic pre renal azotemia (from necessity of diuretic therapy) * baseline creatinine was running ~ 2.5mg/dl on last hospitalization/admission * creatinine better than baseline at this time * continue diuretic therapy (2) Acute and chronic respiratory failure: Code(s): J96.20 - Acute and chronic respiratory failure, unspecified whether with hypoxia or hypercapnia Status: Acute Assessment and Plan: * secondary to COVID-19 infection and exacerbation of heart failure * complicated by known COPD, pulmonary HTM, GUANACO * finished steroid course * s/p course of antibiotics * with rising CO2 levels, consider adding acetazolamide (3) Pneumonia due to COVID-19 virus: Code(s): U07.1 - COVID-19; J12.82 - Pneumonia due to coronavirus disease 2018 Status: Acute Assessment and Plan: * on isolation, baricitinib and supplemental oxygen * completed course of steroids * continue supportive care (4) CHF exacerbation: Qualifiers: Heart failure type: diastolic Qualified Code(s): I50.33 - Acute on chronic diastolic (congestive) heart failure Code(s): I50.9 - Heart failure, unspecified Status: Resolved Assessment and Plan: * due to her pulmonary hypertension and tricuspid regurgitation * continue diuretic therapy * follow I/Os and daily weights (5) Hypertension: Qualifiers: Hypertension type: essential hypertension Qualified Code(s): I10 - Essential (primary) hypertension Code(s): I10 - Essential (primary) hypertension Status: Chronic Assessment and Plan: * reasonable control * follow trend of hemodynamics (6) Diabetes mellitus: Qualifiers: Diabetes mellitus complication status: with hyperglycemia Diabetes efe itus longterm insulin use: without long chain quiller tender use Diabetes mellitus type: type 2 Qualified Code(s): E11.65 - Type 2 diabetes mellitus with hyperglycemia Code(s): E11.9 - Type 2 diabetes mellitus without complications Status: Chronic Assessment and Plan: * follow accuchecks * glycemic control Will continue to follow. Subjective Date/time seen: 05/15/22 12:38 Respiratory status/breathing appears about the same (sometimes appears rather tenuous); continues to tolerate diuresis with relative stability in renal functi on; no other acute issues/events overnight or earlier this morning; no acute distress voiced. Exam Narrative: General: WD/WN AA female in NAD Heart: normal S1 and S2; no rub Lungs: coarse breath sound throughout Abdomen: soft, nontender, nondistended, positive bowel sounds Extremities: no cyanosis or clubbing; 1+ edema bilaterally Skin: warm and intact Objective Data Vital Signs Vital Signs: Vital Signs Temp Pulse Resp BP Pulse Ox O2 Del Method O2 Flow Rate 05/15/22 12:00 36.1 C L 89 18 99/78 L 97 High Flow Nasal Cannula 05/15/22 10:00 92 05/15/22 08:49 97 High Flow Nasal Cannula 14 05/15/22 08:00 36.2 C L 88 26 H 97/56 L 98 05/15/22 06:00 90
--- NOTE | 2022-05-15 12:38 | PM.PNNEP ---
Progress Note: A&P Assessment and Plan (1) Chronic kidney disease, stage IV (severe): Code(s): N18.4 - Chronic kidney disease, stage 4 (severe) Status: Chronic Assessment and Plan: due to hypertension, diabetes, vascular disease, and chronic pre renal azotemia (from necessity of diuretic therapy) baseline creatinine was running ~ 2.5mg/dl on last hospitalization/admission creatinine better than baseline at this time continue diuretic therapy (2) Acute and chronic respiratory failure: Code(s): J96.20 - Acute and chronic respiratory failure, unspecified whether with hypoxia or hypercapnia Status: Acute Assessment and Plan: secondary to COVID-19 infection and exacerbation of heart failure complicated by known COPD, pulmonary HTM, GUANACO finished steroid course s/p course of antibiotics with rising CO2 levels, consider adding acetazolamide (3) Pneumonia due to COVID-19 virus: Code(s): U07.1 - COVID-19; J12.82 - Pneumonia due to coronavirus disease 2018 Status: Acute Assessment and Plan: on isolation, baricitinib and supplemental oxygen completed course of steroids continue supportive care (4) CHF exacerbation: Qualifiers: Heart failure type: diastolic Qualified Code(s): I50.33 - Acute on chronic diastolic (congestive) heart failure Code(s): I50.9 - Heart failure, unspecified Status: Resolved Assessment and Plan: due to her pulmonary hypertension and tricuspid regurgitation continue diuretic therapy follow I/Os and daily weights (5) Hypertension: Qualifiers: Hypertension type: essential hypertension Qualified Code(s): I10 - Essential (primary) hypertension Code(s): I10 - Essential (primary) hypertension Status: Chronic Assessment and Plan: reasonable control follow trend of hemodynamics (6) Diabetes mellitus: Qualifiers: Diabetes mellitus complication status: with hyperglycemia Diabetes mellitus exterminator insulin use: without exterminator use Diabetes mellitus type: type 2 Qualified Code(s): E11.65 - Type 2 diabetes mellitus with hyperglycemia Code(s): E11.9 - Type 2 diabetes mellitus without complications Status: Chronic Assessment and Plan: follow accuchecks glycemic control Will continue to follow. Subjective Date/time seen: 05/15/22 12:38 Respiratory status/breathing appears about the same (sometimes appears rather tenuous); continues to tolerate diuresis with relative stability in renal function; no other acute issues/events overnight or earlier this morning; no acute distress voiced. Exam Narrative: General: WD/WN AA female in NAD Heart: normal S1 and S2; no rub Lungs: coarse breath sound throughout Abdomen: soft, nontender, nondistended, positive bowel sounds Extremities: no cyanosis or clubbing; 1+ edema bilaterally Skin: warm and intact Objective Data Vital Signs Vital Signs: Vital Signs Temp Pulse Resp BP Pulse Ox O2 Del Method O2 Flow Rate 05/15/22 12:00 36.1 C L 89 18 99/78 L 97 High Flow Nasal Cannula 05/15/22 10:00 92 05/15/22 08:49 97 High Flow Nasal Cannula 14 05/15/22 08:00 36.2 C L 88 26 H 97/56 L 98 05/15/22 06:00 90 05/15/22 04:00 100 High Flow Nasal Cannula 15 05/15/22 04:00 36.3 C L 90 18 118/74 97 05/15/22 04:00 88 05/15/22 02:00 73 05/15/22 02:17 87 23 H 95 BiPAP 05/15/22 00:00 100 High Flow Nasal Cannula 15 05/15/22 00:00 88 05/15/22 00:35 90 22 H 97 BiPAP 05/14/22 22:00 98 24 H 93 BiPAP 05/14/22 23:26 36.4 C 90 25 H 122/59 L 97 05/14/22 22:00 93 05/14/22 20:00 100 High Flow Nasal Cannula 15 05/14/22 20:00 93 05/14/22 20:00 36.6 C 97 20 103/60 98 05/14/22 18:00 84 05/14/22 15:30 97 High Flow Therapy with Na 30 05/14/22 16:00
[2022-05-15] MEDS: SENNA/DOCUSATE SODIUM TABLET 1 TAB PO (21:00)
[2022-05-15] MEDS: TOLNAFTATE 1% POWDER 45 GM BTL 1 APPLIC TOPICAL (21:00)
[2022-05-15] MEDS: acetaZOLAMIDE SODIUM FOR INJ 500 MG VIAL IV PUSH (22:50)
[2022-05-16] VITALS (15 sets, daily range): BP systolic 75–107; BP diastolic 44–68; PULSE 83–97; RESP 18–24; TEMP 35.9–37.1; O2SAT 92–100
[2022-05-16 04:29] LABS: Basophils Percent Auto 0.2 % (0.2-1.2); Eosinophils Absolute Auto 0.1 K/mm3 (0-0.3); Eosinophils Percent Auto 1.2 % (0-4.4); Hematocrit 30.7 % (37.0-47.0); Hemoglobin 8.8 g/dL (12.0-15.0); Immature Granulocyte Absolute 0.05 K/mm3 (0.00-0.031); Immature Granulocyte Percent A 0.5 % (0-0.5); Immature Platelet Fraction Pct 4.7 % (0.9-11.2); Lymphocytes Absolute Auto 1.83 K/mm3 (0.9-3.2); Lymphocytes Percent Auto 16.5 % (18.3-44.2); Mean Corpuscular HGB Conc 28.7 g/dl (32-36); Mean Corpuscular Hemoglobin 21.1 pg (26-34); Mean Corpuscular Volume 73.6 fl (80-100); Monocytes Absolute Auto 0.6 K/mm3 (0.1-0.6); Neutrophils Absolute Auto 8.5 K/mm3 (1.3-6.7); Neutrophils Percent Auto 76.6 % (45.5-73.1); Platelet Count Result 250 k/mm3 (150-375); Red Blood Count 4.17 M/mm3 (4.2-5.4); Red Cell Distribution Width 29.1 % (11.5-14.5); White Blood Count 11.1 K/mm3 (4.5-10.0)
[2022-05-16 04:39] LABS: Alanine Aminotransferase 38 U/L (6-35); Aspartate Amino Transferase 79 U/L (14-36); Estimated CRCL calculation 36 ml/min; Estimated Glomerular Filt Rate 34
[2022-05-16 04:43] LABS: CRP 1.9 mg/dL (<1.0)
[2022-05-16] MEDS: HEPARIN SODIUM 5,000 UNITS/ML VIAL 5000 UNITS SUB-Q ×3 (05:16→21:17)
[2022-05-16] MEDS: GABAPENTIN 100 MG CAPSULE PO ×3 (05:16→21:17)
[2022-05-16] MEDS: UMECLIDINIUM BROMIDE 62.5 MCG ELLIPTA 1 PUFF INHALATION (08:15)
--- NOTE | 2022-05-16 08:32 | PM.PNCARD ---
Progress Note: A&P Assessment and Plan (1) Ventricular tachycardia (paroxysmal): Code(s): I47.2 - Ventricular tachycardia Status: Acute Plan 62-year-old lady with history of severe pulmonary hypertension most likely related to untreated sleep apnea BS she is noncompliant with PAP therapy as an outpatient. In the hospital now with dyspnea related to coronavirus. She is on telemetry and has had some runs of asymptomatic nonsustained VT. She is asymptomatic with this and is known to have vigorous left ventricular systolic function and no ischemic wall motion abnormalities. In this setting these ventricular arrhythmias do not require specific treatment. If you have questions for me regarding this opinion please let me know. As this is Dr. Hopkins's patient we will not continue to make rounds on her each day unless our services are needed. Tong Moran MD [facility] Subjective Date/time seen: Date of service: 05/16/22 08:32 Interval history: Follow-up visit in this 62-year-old woman with: Evidence of severe pulmonary hypertension with long history of sleep apnea, noncompliant with treatment. Patient in the hospital with worsening dyspnea attributed to the coronavirus. Hospitalized since 05/03/2022. Seen earlier in this hospitalization by Dr. Hopkins. He is now on vacation. Asked to see the patient because of nonsustained ventricular tachycardia noted on telemetry. Patient had no symptoms of this arrhythmia. Echocardiogram demonstrates vigorous, hyperdynamic appearing LV systolic function and she has no history of previous myocardial infarction. No chest pain complaints Exam Const: General: comfortable and no acute distress HENMT: Mouth: Yes moist mucous membranes Eyes: Sclera: sclerae normal Neck: Neck: supple Other: Moderately elevated jugular venous pressure Resp: Auscultation: diminished lung sounds Other: Rhonchorous breath sounds Cardio: Rate: regular rate Rhythm: regular rhythm Other: No murmur no gallop GI: GI Palp: Yes Soft to palpation Auscultation: normal bowel sounds Skin: General skin exam: normal color Objective Data Vital Signs Vital Signs: Vital Signs - 24 hr 05/15/22 08:49 05/15/22 10:00 05/15/22 12:00 Temperature Pulse Rate 92 Respiratory Rate Blood Pressure Pulse Oximetry 97 100 Oxygen Delivery High Flow Nasal Cannula High Flow Nasal Cannula Oxygen Flow Rate 14 11 05/15/22 12:00 05/15/22 12:00 05/15/22 14:00 Temperature 36.1 C L Pulse Rate 85 89 97 Respiratory Rate 18 Blood Pressure 99/78 L Pulse Oximetry 97 Oxygen Delivery Oxygen Flow Rate 05/15/22 16:00 05/15/22 16:00 05/15/22 16:00 Temperature 36.9 C Pulse Rate 71 85 Respiratory Rate 18 Blood Pressure 113/76 Pulse Oximetry 98 100 Oxygen Delivery High Flow Nasal Cannula Oxygen Flow Rate 11 05/15/22 18:00 05/15/22 20:00 05/15/22 20:00 Temperature 36.6 C Pulse Rate 98 92 Respiratory Rate Blood Pressure Pulse Oximetry Oxygen Delivery Oxygen Flow Rate 05/15/22 21:00 05/15/22 23:22 05/16/22 00:00 Temperature Pulse Rate 90 88 Respiratory Rate Blood Pressure Pulse Oximetry 100 99 Oxygen Delivery High Flow Nasal Cannula Oxygen Flow Rate 8 05/16/22 04:00 05/15/22 21:30 05/16/22 04:00 Temperature 36.6 C Pulse Rate 91 83 Respiratory Rate 20 Blood Pressure 107/64 Pulse Oximetry 96 95 Oxygen Delivery High Flow Nasal Cannula Oxygen Flow Rate 9 05/16/22 08:15 Temperature Pulse Rate Respiratory Rate Blood Pressure Pulse Oximetry 98 Oxygen Delivery High Flow Nasal Cannula Oxygen Flow Rate 7 Intake/Output Intake/Output: Intake & Output 05/13/22 05/14/22 05/15/22 05/16/22 23:59 23:59 23:59 23:59 Intake Total 1370 2560 1550 500 Output Total 9111 3280 6726 1200 [facility] -[phone] [phone] [phone] Meds/Results Medications: Active Medications Generic Name Dose Route Start
--- NOTE | 2022-05-16 08:57 | P.PNNP_ITS ---
Progress Note: A&P Assessment and Plan (1) Chronic kidney disease, stage IV (severe): Code(s): N18.4 - Chronic kidney disease, stage 4 (severe) Status: Chronic Assessment and Plan: * due to hypertension, diabetes, vascular disease, and chronic pre renal azotemia (from necessity of diuretic therapy) * baseline creatinine was running ~ 2.5mg/dl on last hospitalization/admission * creatinine better than baseline at this time * she seems to be doing pretty well in the hospital with a Lower overall creatinine. This possibly is because she is getting less salt here than at home. * continue diuretic therapy as is. (2) Acute and chronic respiratory failure: Code(s): J96.20 - Acute and chronic respiratory failure, unspecified whether with hypoxia or hypercapnia Status: Acute Assessment and Plan: * secondary to COVID-19 infection and exacerbation of heart failure * complicated by known COPD, pulmonary HTM, GUANACO * finished steroid course * s/p course of antibiotics * No CO2 checked today. Will check 1 tomorrow. (3) Pneumonia due to COVID-19 virus: Code(s): U07.1 - COVID-19; J12.82 - Pneumonia due to coronavirus disease 2018 Status: Acute Assessment and Plan: * on isolation, baricitinib and supplemental oxygen * completed course of steroids * feels less sob and cough (4) CHF exacerbation: Qualifiers: Heart failure type: diastolic Qualified Code(s): I50.33 - Acute on chronic diastolic (congestive) heart failure Code(s): I50.9 - Heart failure, unspecified Status: Resolved Assessment and Plan: * due to her pulmonary hypertension and tricuspid regurgitation * continue diuretic therapy . Now on 80 mg b.i.d.. * I think it is okay to reduced to 40 b.i.d.. Not on metolazone. (5) Hypertension: Qualifiers: Hypertension type: essential hypertension Qualified Code(s): I10 - Essential (primary) hypertension Code(s): I10 - Essential (primary) hypertension Status: Chronic Assessment and Plan: * reasonable control * follow trend of hemodynamics (6) Diabetes mellitus: Qualifiers: Diabetes mellitus type: type 2 Diabetes mellitus regional intermodal truck driver insulin use: without regional intermodal truck driver use Diabetes mellitus complication status: with hyperglycemia Qualified Code(s): E11.65 - Type 2 diabetes mellitus with hyperglycemia Code(s): E11.9 - Type 2 diabetes mellitus without complications Status: Chronic Assessment and Plan: * on accuchecks and ssi per hospitalists. Subjective Date/time seen: 05/16/22 08:57 Interval history: Becky is feeling okay today. She is on a little bit less oxygen than before. Eating okay. Eager for discharge Exam Narrative: General: WD/WN AA female in NAD Heart: normal S1 and S2; no rub or gallop Lungs: coarse breath sound throughout Abdomen: soft, nontender, nondistended, positive bowel sounds Extremities: no cyanosis or clubbing; 1+ edema bilaterally Skin: no rash Objective Data Vital Signs Vital Signs: Vital Signs - 24 hr 05/15/22 10:00 05/15/22 12:00 05/15/22 12:00 Temperature Pulse Rate 92 85 Respiratory Rate Blood Pressure Pulse Oximetry 100 Oxygen Delivery High Flow Nasal Cannula Oxygen Flow Rate 11
--- NOTE | 2022-05-16 08:57 | PM.PNNEP ---
Progress Note: A&P Assessment and Plan (1) Chronic kidney disease, stage IV (severe): Code(s): N18.4 - Chronic kidney disease, stage 4 (severe) Status: Chronic Assessment and Plan: due to hypertension, diabetes, vascular disease, and chronic pre renal azotemia (from necessity of diuretic therapy) baseline creatinine was running ~ 2.5mg/dl on last hospitalization/admission creatinine better than baseline at this time she seems to be doing pretty well in the hospital with a Lower overall creatinine. This possibly is because she is getting less salt here than at home. continue diuretic therapy as is. (2) Acute and chronic respiratory failure: Code(s): J96.20 - Acute and chronic respiratory failure, unspecified whether with hypoxia or hypercapnia Status: Acute Assessment and Plan: secondary to COVID-19 infection and exacerbation of heart failure complicated by known COPD, pulmonary HTM, GUANACO finished steroid course s/p course of antibiotics No CO2 checked today. Will check 1 tomorrow. (3) Pneumonia due to COVID-19 virus: Code(s): U07.1 - COVID-19; J12.82 - Pneumonia due to coronavirus disease 2018 Status: Acute Assessment and Plan: on isolation, baricitinib and supplemental oxygen completed course of steroids feels less sob and cough (4) CHF exacerbation: Qualifiers: Heart failure type: diastolic Qualified Code(s): I50.33 - Acute on chronic diastolic (congestive) heart failure Code(s): I50.9 - Heart failure, unspecified Status: Resolved Assessment and Plan: due to her pulmonary hypertension and tricuspid regurgitation continue diuretic therapy . Now on 80 mg b.i.d.. I think it is okay to reduced to 40 b.i.d.. Not on metolazone. (5) Hypertension: Qualifiers: Hypertension type: essential hypertension Qualified Code(s): I10 - Essential (primary) hypertension Code(s): I10 - Essential (primary) hypertension Status: Chronic Assessment and Plan: reasonable control follow trend of hemodynamics (6) Diabetes mellitus: Qualifiers: Diabetes mellitus type: type 2 Diabetes mellitus halfway insulin use: without halfway use Diabetes mellitus complication status: with hyperglycemia Qualified Code(s): E11.65 - Type 2 diabetes mellitus with hyperglycemia Code(s): E11.9 - Type 2 diabetes mellitus without complications Status: Chronic Assessment and Plan: on accuchecks and ssi per hospitalists. Subjective Date/time seen: 05/16/22 08:57 Interval history: Becky is feeling okay today. She is on a little bit less oxygen than before. Eating okay. Eager for discharge Exam Narrative: General: WD/WN AA female in NAD Heart: normal S1 and S2; no rub or gallop Lungs: coarse breath sound throughout Abdomen: soft, nontender, nondistended, positive bowel sounds Extremities: no cyanosis or clubbing; 1+ edema bilaterally Skin: no rash Objective Data Vital Signs Vital Signs: Vital Signs - 24 hr 05/15/22 10:00 05/15/22 12:00 05/15/22 12:00 Temperature Pulse Rate 92 85 Respiratory Rate Blood Pressure Pulse Oximetry 100 Oxygen Delivery High Flow Nasal Cannula Oxygen Flow Rate 11 05/15/22 12:00 05/15/22 14:00 05/15/22 16:00 Temperature 36.1 C L 36.9 C Pulse Rate 89 97 71 Respiratory Rate 18 18 Blood Pressure 99/78 L 113/76 Pulse Oximetry 97 98 Oxygen Delivery Oxygen Flow Rate 05/15/22 16:00 05/15/22 16:00 05/15/22 18:00 Temperature Pulse Rate 85 98 Respiratory Rate Blood Pressure Pulse Oximetry 100 Oxygen Delivery High Flow Nasal Cannula Oxygen Flow Rate 11 05/15/22 20:00 05/15/22 20:00 05/15/22 21:00 Temperature 36.6 C Pulse Rate 92 Respiratory Rate Blood Pressure Pulse Oximetry 100 Oxygen Delivery High Flow Nasal Cannula Oxygen Flow Rate 8
[2022-05-16] MEDS: TOLNAFTATE 1% POWDER 45 GM BTL 1 APPLIC TOPICAL ×2 (09:07→21:17)
[2022-05-16] MEDS: POLYSACCHARIDE IRON COMPLEX 150 MG CAPSULE PO ×2 (09:07→17:42)
[2022-05-16] MEDS: EZETIMIBE 10 MG TABLET PO (09:07)
[2022-05-16] MEDS: PANTOPRAZOLE 40 MG TABLET PO ×2 (09:07→17:42)
[2022-05-16] MEDS: polyethylene glycoL 3350 17 GM POWD.PACK PO (09:07)
[2022-05-16] MEDS: SODIUM CHLORIDE 0.9% IV 500 ML IV CONT (09:49)
--- NOTE | 2022-05-16 11:28 | PM.IMPN ---
Progress Note: A&P Assessment and Plan (1) Acute and chronic respiratory failure: Code(s): J96.20 - Acute and chronic respiratory failure, unspecified whether with hypoxia or hypercapnia Status: Acute Assessment and Plan: Secondary to COVID (tested positive 05/03/22) and heart failure (echo 11/20 showed +PFO on bubble study, EF 65%, grade I diastolic dysfunction, severe pulm HTN) Patient is now on high-flow. Completed course of dexamethasone continue baricitinib Not a candidate for remdesevir or FARTUN inhibitor s/p course or abx To note that a patient is on oxygen at home between 2 and 4-5 liters. (2) Acute on chronic kidney failure: Code(s): N17.9 - Acute kidney failure, unspecified; N18.9 - Chronic kidney disease, unspecified Status: Acute Assessment and Plan: creatinine stable. Baseline creatinine around 2. Home p.o. diuretics restarted by Nephrology (3) Pulmonary hypertension: Code(s): I27.20 - Pulmonary hypertension, unspecified Status: Acute Assessment and Plan: Appreciate pulmonology consultation (4) Chronic anemia: Code(s): D64.9 - Anemia, unspecified Status: Acute Assessment and Plan: Appreciate GI input. No urgent need for endoscopy. (5) Acute exacerbation of congestive heart failure: Code(s): I50.9 - Heart failure, unspecified Status: Acute Assessment and Plan: Appreciate cardiology consultation, continue diuresis with Lasix IV (6) COVID-19: Code(s): U07.1 - COVID-19 Status: Acute Assessment and Plan: Continue dexamethasone, not a candidate for remdesivir, see above (7) Sleep apnea: Code(s): G47.30 - Sleep apnea, unspecified Status: Acute Assessment and Plan: Continue Airvo, noncompliant with CPAP at home Subjective Date/time seen: 05/16/22 11:28 Exam Narrative: General: No acute distress, alert and oriented per baseline, appears to be comfortable on high-flow oxygen HEENT: Atraumatic, normocephalic, mucous membranes moist CV: Regular rate and rhythm, S1, S2 Lungs: Diminished breath sounds, coarse throughout, very diminished at bases Abdomen: Soft, nontender, nondistended Extremities: Normal to inspection Skin: No rashes noted, no lesions or wounds seen Psych: Euthymic, normal affect Const: General: in distress mild (Respiratory) HENMT: Mouth: Yes moist mucous membranes Eyes: General: appearance normal, both eyes and all related structures Pupils: Equal, round and reactive pupils present EOM: EOMs intact bilaterally Neck: Neck: supple and No no JVD (There is approximately 1 in or JVD bilaterally.) Resp: Effort & Inspection: abnormal respiratory effort (Patient currently tachypneic and showing signs of dyspnea.) Auscultation: crackles, rales, rhonchi, wheezes and diminished lung sounds Other: Patient without adventitious lung sounds in all altman and/or decreased in all altman. Cardio: Rate: regular rate Rhythm: regular rhythm Heart sounds: no gallops, Murmur heart sound present diastolic and systolic and no rubs Other: There is mild displacement of PMI to the left lateral. GI: Inspection: non-distended Auscultation: normal bowel sounds : Other: Deferred Skin: General skin exam: normal color, no rashes or lesions noted and no erythema Lesions: no lesions noted Rashes: no rashes noted Wounds: wound noted Neuro: Cranial nerves: Yes Equal, round and reactive pupils present Speech: normal speech Motor exam (neuro): Normal motor muscle tone present throughout and Abnormal motor strength present (Generalized weakness.) Sensory Exam: normal sensation Extrem: General: edema (Pitting 1+ to 2+ edema bilaterally.) bilateral and pedal edema Psych: Mental Status: mental status grossly normal Affect: normal affect Objective Data Vital Signs Vital Signs: Vital Signs - 24 hr 05/15/22 12:00 05/15/22 12:00 05/15/22 12:00 Temperature
[2022-05-16] MEDS: BARICITINIB 2 MG TABLET PO (12:23)
--- NOTE | 2022-05-16 12:23 | PCOTNOTE ---
Attempted to see patient this am, however patient refused stating, I'm gonna do that after I eat lunch. Returned for second attempt at this time, however patient was still waiting for lunch refused stating, I'm tryin uh get my lunch.
--- NOTE | 2022-05-16 14:40 | PM.PNPUL ---
Progress Note: A&P Assessment and Plan (1) Pneumonia due to COVID-19 virus: Code(s): U07.1 - COVID-19; J12.82 - Pneumonia due to coronavirus disease 2018 Status: Acute Assessment and Plan: This 62 year old female was admitted May 03 with hypoxemia,? 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 She has multiple abnormal lab studies consistent with COVID pneumonia with sepsis.? She was not a candidate for remdesivir due to her acute on chronic renal failure, now better, 05/11 CXR shows patchy bilateral infiltrates, and she is now on 9 L HFNC off AirVO. She is normally on 4 L/min at baseline, so her current need is improving. She has had 1 COVID vaccination. Baricitinib was started May 07.? 05/16/22: Patient tells me she continues to improving his breathing back at her baseline. Currently patient is on 7 L nasal cannula with saturations 93-96%. Baseline she tells me she wears 5-6 L at home at rest, with ambulation and at night. Patient finished her dexamethasone 10 days on 05/13, she is on baracitinib 2 mg q.day since 05/07 And will receive 14 days of treatment or until she is discharged. Chest x-ray today demonstrates stable diffuse lung disease compared with 05/06/2022 (2) Acute on chronic respiratory failure with hypoxia and hypercapnia: Code(s): J96.21 - Acute and chronic respiratory failure with hypoxia; J96.22 - Acute and chronic respiratory failure with hypercapnia Status: Acute Assessment and Plan: ABG on 05/04/2022 with a pH of 7.45/33/113 on high-flow nasal cannula 50 L and 60% FiO2. 05/15/22 She has long standing chronic hypoxemic respiratory failure, was on O2 4 L/min and 5 L/min with exertion before Oct 2020 admission; she was on higher O2 with acute episode of COVID pneumonia.? Now down to 9 L HFNC off AirVo and is using BiPAP at night. She has additional issue of decompensated cardiac function, diastolic problem and apparently right heart failure which is acute on chronic. Untreated GUANACO is making these problems worse. She has a PAP machine, possibly a NPPV at home, does not use. 05/16/22: Patient tells me she continues to improving his breathing back at her baseline. Currently patient is on 7 L nasal cannula with saturations 93-96%. creatinine 1.8. Patient finished her dexamethasone 10 days on 05/13, she is on parasitic neb 2 mg q.day since 05/07, Lasix 80 mg p.o. b.i.d., see does 0 limb I had given last night x1 and incruse. (3) Pulmonary hypertension: Code(s): I27.20 - Pulmonary hypertension, unspecified Status: Acute Assessment and Plan: Severe pulmonary hypertension on echo early in 2021, PA pressure 69 mmHg, no information about her treatment at [facility] in November 2021. Echo 05/03/22 = PA pressure 84mmHg. Multifactorial causes, COPD, chronic resp failure, CHF, and PFO. Patient diuresed and no specific trereament initiated at [facility] in Nov. (4) Chronic obstructive pulmonary disease: Code(s): J44.9 - Chronic obstructive pulmonary disease, unspecified Status: Acute Assessment and Plan: 05/15/22 She has emphysema on CT imaging, has had increased pC02 on occasion, not this admission. She can continue LAMA inhaled, does not need inhaled steroid while she is on dexamethasone. She has been treated with 3 long acting medications at home.? She has not had an office visit since 2011 due to multiple admissions since then. Last PFT 09/15/2020; FEV1 61%, 1.56 L; FVC 61%, 2.12 L; FEV1/FVC = 73%; TLC 446%, RV 24%, RV/TLC 20%, Raw 229; DLCO 24%, DLCO/VA 71%. 05/16 patient currently on increased Ellipta 62.5 at 1 puff q.day. there is no active wheezing. There is no evidence of an active COPD exacerbation. (5) Obstructive sleep apnea: Code(s): G47.33 - Obst
[2022-05-16] MEDS: SENNA/DOCUSATE SODIUM TABLET 1 TAB PO (21:17)
[2022-05-17] VITALS (20 sets, daily range): BP systolic 73–108; BP diastolic 51–71; PULSE 83–119; RESP 18–22; TEMP 36.4–36.9; O2SAT 87–100
[2022-05-17 05:06] LABS: Basophils Percent Auto 0.2 % (0.2-1.2); Eosinophils Absolute Auto 0.1 K/mm3 (0-0.3); Eosinophils Percent Auto 1.3 % (0-4.4); Hematocrit 28.6 % (37.0-47.0); Hemoglobin 8.5 g/dL (12.0-15.0); Immature Granulocyte Absolute 0.03 K/mm3 (0.00-0.031); Immature Granulocyte Percent A 0.3 % (0-0.5); Immature Platelet Fraction Pct 5.5 % (0.9-11.2); Lymphocytes Absolute Auto 1.72 K/mm3 (0.9-3.2); Lymphocytes Percent Auto 18.2 % (18.3-44.2); Mean Corpuscular HGB Conc 29.7 g/dl (32-36); Mean Corpuscular Hemoglobin 21.3 pg (26-34); Mean Corpuscular Volume 71.5 fl (80-100); Monocytes Absolute Auto 0.5 K/mm3 (0.1-0.6); Monocytes Percent Auto 4.8 % (2.6-8.5); Neutrophils Absolute Auto 7.1 K/mm3 (1.3-6.7); Neutrophils Percent Auto 75.2 % (45.5-73.1); Platelet Count Result 232 k/mm3 (150-375); Red Cell Distribution Width 29.1 % (11.5-14.5); White Blood Count 9.5 K/mm3 (4.5-10.0)
[2022-05-17 05:30] LABS: Alanine Aminotransferase 34 U/L (6-35); Albumin Level 3.5 g/dL (3.5-5.1); Anion Gap 6 mmol/L (8-16); Aspartate Amino Transferase 72 U/L (14-36); Blood Urea Nitrogen 46 mg/dL (7-17); Calcium 8.8 mg/dL (8.4-10.2); Carbon Dioxide 33 mmol/L (22-30); Chloride 98 mmol/L (98-107); Estimated CRCL calculation 36 ml/min; Estimated Glomerular Filt Rate 34; Glucose 153 mg/dL (65-110); Phosphorus 3.3 mg/dL (2.5-4.5); Potassium 3.4 mmol/L (3.4-5.0); Sodium 137 mmol/L (137-145)
[2022-05-17] MEDS: HEPARIN SODIUM 5,000 UNITS/ML VIAL 5000 UNITS SUB-Q ×3 (06:29→21:04)
[2022-05-17] MEDS: GABAPENTIN 100 MG CAPSULE PO ×3 (06:30→21:04)
--- NOTE | 2022-05-17 07:49 | P.PNNP_ITS ---
Progress Note: A&P Assessment and Plan (1) Chronic kidney disease, stage IV (severe): Code(s): N18.4 - Chronic kidney disease, stage 4 (severe) Status: Chronic Assessment and Plan: * due to hypertension, diabetes, vascular disease, and chronic pre renal azotemia (from necessity of diuretic therapy) * baseline creatinine was running ~ 2.5mg/dl on last hospitalization/admission * creatinine better than baseline at this time * she seems to be doing pretty well in the hospital with a Lower overall creatinine. This possibly is because she is getting less salt here than at home. * continue diuretic therapy. (2) Acute and chronic respiratory failure: Code(s): J96.20 - Acute and chronic respiratory failure, unspecified whether with hypoxia or hypercapnia Status: Acute Assessment and Plan: * secondary to COVID-19 infection and exacerbation of heart failure * complicated by known COPD, pulmonary HTM, GUANACO * finished steroid course * s/p course of antibiotics * Chest x-ray shows persistent infiltrates. * Continue diuretics. It is unclear how much of this is fluid how much of this is leftovers of the COVID. (3) Pneumonia due to COVID-19 virus: Code(s): U07.1 - COVID-19; J12.82 - Pneumonia due to coronavirus disease 2018 Status: Acute Assessment and Plan: * on isolation, baricitinib and supplemental oxygen * completed course of steroids * feels less sob and cough (4) CHF exacerbation: Qualifiers: Heart failure type: diastolic Qualified Code(s): I50.33 - Acute on chronic diastolic (congestive) heart failure Code(s): I50.9 - Heart failure, unspecified Status: Resolved Assessment and Plan: * due to her pulmonary hypertension and tricuspid regurgitation * continue diuretic therapy . Now on 40 mg b.i.d.. * Chest x-ray still shows infiltrates. Increase diuretics again as long as creatinine is stable. 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 Additional Plan 1. Maura has chronic kidney disease. This is due to hypertension, diabetes, vascular disease, and chronic pre renal azotemia. baseline creatinine is around 2.5. Currently her creatinine is down to 1.6. BUN is down as well. Because of the good numbers and her oxygenation we can increase her Bumex to 80 b.i.d. again. 2. The patient has COVID. She is on respiratory isolation , Dexamethasone, and oxygen. 3. The patient has hypertension. Her blood pressure is ranging from 110-137 4. The patient has diabetes. She will be on sliding scale and insulin per hospitalists. 5. Liver enzyme elevation. Perhaps something to do with the COVID? Liver enzymes are improving 6. CHF due to pulm htn and TR. 7. She has anemia. Hemoglobin is 9.3
--- NOTE | 2022-05-17 07:49 | PM.PNNEP ---
Progress Note: A&P Assessment and Plan (1) Chronic kidney disease, stage IV (severe): Code(s): N18.4 - Chronic kidney disease, stage 4 (severe) Status: Chronic Assessment and Plan: due to hypertension, diabetes, vascular disease, and chronic pre renal azotemia (from necessity of diuretic therapy) baseline creatinine was running ~ 2.5mg/dl on last hospitalization/admission creatinine better than baseline at this time she seems to be doing pretty well in the hospital with a Lower overall creatinine. This possibly is because she is getting less salt here than at home. continue diuretic therapy. (2) Acute and chronic respiratory failure: Code(s): J96.20 - Acute and chronic respiratory failure, unspecified whether with hypoxia or hypercapnia Status: Acute Assessment and Plan: secondary to COVID-19 infection and exacerbation of heart failure complicated by known COPD, pulmonary HTM, GUANACO finished steroid course s/p course of antibiotics Chest x-ray shows persistent infiltrates. Continue diuretics. It is unclear how much of this is fluid how much of this is leftovers of the COVID. (3) Pneumonia due to COVID-19 virus: Code(s): U07.1 - COVID-19; J12.82 - Pneumonia due to coronavirus disease 2018 Status: Acute Assessment and Plan: on isolation, baricitinib and supplemental oxygen completed course of steroids feels less sob and cough (4) CHF exacerbation: Qualifiers: Heart failure type: diastolic Qualified Code(s): I50.33 - Acute on chronic diastolic (congestive) heart failure Code(s): I50.9 - Heart failure, unspecified Status: Resolved Assessment and Plan: due to her pulmonary hypertension and tricuspid regurgitation continue diuretic therapy . Now on 40 mg b.i.d.. Chest x-ray still shows infiltrates. Increase diuretics again as long as creatinine is stable. 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 Additional Plan 1. Maura has chronic kidney disease. This is due to hypertension, diabetes, vascular disease, and chronic pre renal azotemia. baseline creatinine is around 2.5. Currently her creatinine is down to 1.6. BUN is down as well. Because of the good numbers and her oxygenation we can increase her Bumex to 80 b.i.d. again. 2. The patient has COVID. She is on respiratory isolation , Dexamethasone, and oxygen. 3. The patient has hypertension. Her blood pressure is ranging from 110-137 4. The patient has diabetes. She will be on sliding scale and insulin per hospitalists. 5. Liver enzyme elevation. Perhaps something to do with the COVID? Liver enzymes are improving 6. CHF due to pulm htn and TR. 7. She has anemia. Hemoglobin is 9.3, and is on the rise. Subjective Date/time seen: 05/17/22 07:49 Interval history: Becky is feeling okay today. Breathing okay on 6L of oxygen. minimal swelling Exam Narrative: General: WD/WN AA female in NAD Heart: normal S1 and S2; no rub Lungs: no wheezes. Fairly clear. Abdomen: soft, nontender, nondistended, positive bowel sounds Extremities: no cyanosis or clubbing; 1+ edema bilaterally Skin: no rash or subcu nodules Objective Data Vital
[2022-05-17] MEDS: UMECLIDINIUM BROMIDE 62.5 MCG ELLIPTA 1 PUFF INHALATION (09:00)
[2022-05-17] MEDS: EZETIMIBE 10 MG TABLET PO (09:40)
[2022-05-17] MEDS: POLYSACCHARIDE IRON COMPLEX 150 MG CAPSULE PO ×2 (09:40→18:19)
[2022-05-17] MEDS: PANTOPRAZOLE 40 MG TABLET PO ×2 (09:40→18:19)
[2022-05-17] MEDS: TOLNAFTATE 1% POWDER 45 GM BTL 1 APPLIC TOPICAL ×2 (09:41→21:04)
[2022-05-17] MEDS: SODIUM CHLORIDE 0.9% IV 500 ML IV CONT (09:41)
[2022-05-17] MEDS: polyethylene glycoL 3350 17 GM POWD.PACK PO (09:41)
[2022-05-17] MEDS: BARICITINIB 2 MG TABLET PO (09:41)
--- NOTE | 2022-05-17 10:03 | PCPTNOTE ---
Attempted to see patient for PT, however patient was working with OT at this time.
--- NOTE | 2022-05-17 10:37 | PCNWS ---
Weekly nutritional screen. Patient is tolerating current heart healthy diet with 100% intake. Weight reported fluctuates possibly due to bed scale. Pt mentioned the food sometimes is not hot enough but it tastes okay. No nutritional needs at this time.
--- NOTE | 2022-05-17 10:41 | PM.PNPUL ---
Progress Note: A&P Assessment and Plan (1) Pneumonia due to COVID-19 virus: Code(s): U07.1 - COVID-19; J12.82 - Pneumonia due to coronavirus disease 2018 Status: Acute Assessment and Plan: This 62 year old female was admitted May 03 with hypoxemia,? 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 She has multiple abnormal lab studies consistent with COVID pneumonia with sepsis.? She was not a candidate for remdesivir due to her acute on chronic renal failure, now better, 05/11 CXR shows patchy bilateral infiltrates, and she is now on 9 L HFNC off AirVO. She is normally on 4 L/min at baseline, so her current need is improving. She has had 1 COVID vaccination. Baricitinib was started May 07.? 05/16/22: Patient tells me she continues to improving his breathing back at her baseline. Currently patient is on 7 L nasal cannula with saturations 93-96%. Baseline she tells me she wears 5-6 L at home at rest, with ambulation and at night. Patient finished her dexamethasone 10 days on 05/13, she is on baracitinib 2 mg q.day since 05/07 And will receive 14 days of treatment or until she is discharged. Chest x-ray today demonstrates stable diffuse lung disease compared with 05/06/2022. 05/17/22 Patient is currently on 6 L nasal cannula with saturation 96% at rest. She continues on the baracitinib (today day 11). continue for 14 days or until discharged. (2) Acute on chronic respiratory failure with hypoxia and hypercapnia: Code(s): J96.21 - Acute and chronic respiratory failure with hypoxia; J96.22 - Acute and chronic respiratory failure with hypercapnia Status: Acute Assessment and Plan: ABG on 05/04/2022 with a pH of 7.45/33/113 on high-flow nasal cannula 50 L and 60% FiO2. 05/15/22 She has long standing chronic hypoxemic respiratory failure, was on O2 4 L/min and 5 L/min with exertion before Oct 2020 admission; she was on higher O2 with acute episode of COVID pneumonia.? Now down to 9 L HFNC off AirVo and is using BiPAP at night. She has additional issue of decompensated cardiac function, diastolic problem and apparently right heart failure which is acute on chronic. Untreated GUANACO is making these problems worse. She has a PAP machine, possibly a NPPV at home, does not use. 05/16/22: Patient tells me she continues to improving his breathing back at her baseline. Currently patient is on 7 L nasal cannula with saturations 93-96%. creatinine 1.8. Patient finished her dexamethasone 10 days on 05/13, she is on parasitic neb 2 mg q.day since 05/07, Lasix 80 mg p.o. b.i.d., see does 0 limb I had given last night x1 and incruse. 05/17 Patient tells me she is breathing back at her baseline. Currently she is on 6 L nasal cannula saturation 96%. Patient had an overnight oximetry on 7 L high-flow nasal cannula with an baseline saturation 94%. Low saturation 49%. Time with saturation less than or equal to 88% was 41 minutes, representing 11% of the monitored time. I suspect her hypoxemia is related to lack of BIPAP use. Of note the patient does have obstructive sleep apnea with an AHI of 11.2 on 08/13/2020 with an optimal pressure of 12/7 and she uses 6 L bleed in at home and says that she wears her mask about every other night. I am attempting to obtain a download. I will perform an overnight oximetry on BiPAP 12/7 with 6 L bleed in [facility]. (3) Pulmonary hypertension: Code(s): I27.20 - Pulmonary hypertension, unspecified Status: Acute Assessment and Plan: Severe pulmonary hypertension on echo early in 2021, PA pressure 69 mmHg, no information about her treatment at [facility] in November 2021. Echo 05/03/22 = PA pressure 84mmHg. Multifactorial causes, COPD, chronic resp failure, CHF, and PFO. Patient
--- NOTE | 2022-05-17 11:25 | HOMEO2EVAL ---
Evaluation was performed at [facility] Home Oxygen Evaluation RC: Home Oxygen (O2) Evaluation Start: 05/17/22 08:36 Freq: ONCE Status: Active Protocol: RPE Activity Type Activity Date Activity User E-sign Co-sign Detail Recorded Client Recorded Date Recorded By Document 05/17/22 11:00 JULIUS [id number] 05/17/22 11:25 JULIUS Document 05/17/22 11:05 JULIUS [email or web address] 05/17/22 11:25 JULIUS Document 05/17/22 11:15 JULIUS [id number] 05/17/22 11:25 JULIUS 05/17/22 05/17/22 05/17/22 11:00 11:05 11:15 Home O2 Evaluation Test Phase Resting Exercise Resting Oxygen Delivery Nasal Cannula Nasal Cannula Nasal Cannula Oxygen Flow Rate (L/min) 6 6 6 Pulse Oximetry (90-100 %) 94 89 L 95 Pulse Rate (60-100 beats/min) 83 Home Oxygen Evaluation Comments PT wears 6 L O2 rest and activity. Has O2 with [facility] Home Pt Treatment Charges O2 Evaluation - Inpatient
--- NOTE | 2022-05-17 11:26 | PCRCNOTE ---
PT HAS HOME O2 WITH [facility]. PT WEARS 6L CONTINUOUSLY. SHE HAS SATS THAT FLUCTUATE FROM 88-97%.WHEN ENCOURAGE DEEP BREATHING SATS GO UP. ACCORDING TO PAST RESPIRATORY NOTES, SHE HAS A BIPAP UNIT AT HOME WITH A 8L BLEED IN FROM [facility] FROM 07/23/21, UNSURE IF SHE IS COMPLIANT.
--- NOTE | 2022-05-17 12:35 | PCNSR ---
On 05/17/22, the student,Angeli Tolbert, provided care and completed [facility] documentation on this patient. I have reviewed the student's documentation and agree with the findings.
--- NOTE | 2022-05-17 13:52 | PM.IMPN ---
Progress Note: A&P Assessment and Plan (1) Acute and chronic respiratory failure: Code(s): J96.20 - Acute and chronic respiratory failure, unspecified whether with hypoxia or hypercapnia Status: Acute Assessment and Plan: Secondary to COVID (tested positive 05/03/22) and heart failure (echo 11/20 showed +PFO on bubble study, EF 65%, grade I diastolic dysfunction, severe pulm HTN) Patient is now on high-flow. Completed course of dexamethasone continue baricitinib until discharge Not a candidate for remdesevir or FARTUN inhibitor s/p course or abx Patient will need a home O2 evaluation to her chest oxygen needs at home. To note patient was on 5liters of oxygen at home. Patient we kept Overnite to get an Overnite pulse ox on her BiPAP settings can likely be discharged tomorrow once plan can be made for home needs for oxygen. (2) Acute on chronic kidney failure: Code(s): N17.9 - Acute kidney failure, unspecified; N18.9 - Chronic kidney disease, unspecified Status: Acute Assessment and Plan: creatinine stable. Baseline creatinine around 2. Home p.o. diuretics restarted by Nephrology (3) Pulmonary hypertension: Code(s): I27.20 - Pulmonary hypertension, unspecified Status: Acute Assessment and Plan: Appreciate pulmonology consultation (4) Chronic anemia: Code(s): D64.9 - Anemia, unspecified Status: Acute Assessment and Plan: Appreciate GI input. No urgent need for endoscopy. (5) Acute exacerbation of congestive heart failure: Code(s): I50.9 - Heart failure, unspecified Status: Acute Assessment and Plan: Appreciate cardiology consultation, continue diuresis with Lasix IV (6) COVID-19: Code(s): U07.1 - COVID-19 Status: Acute Assessment and Plan: Continue dexamethasone, not a candidate for remdesivir, see above (7) Sleep apnea: Code(s): G47.30 - Sleep apnea, unspecified Status: Acute Assessment and Plan: Continue Airvo, noncompliant with CPAP at home Subjective Date/time seen: 05/17/22 13:52 No complaints Exam Narrative: General: No acute distress, alert and oriented per baseline, appears to be comfortable on high-flow oxygen HEENT: Atraumatic, normocephalic, mucous membranes moist CV: Regular rate and rhythm, S1, S2 Lungs: Diminished breath sounds, coarse throughout, very diminished at bases Abdomen: Soft, nontender, nondistended Extremities: Normal to inspection Skin: No rashes noted, no lesions or wounds seen Psych: Euthymic, normal affect Const: General: in distress mild (Respiratory) HENMT: Mouth: Yes moist mucous membranes Eyes: General: appearance normal, both eyes and all related structures Pupils: Equal, round and reactive pupils present EOM: EOMs intact bilaterally Neck: Neck: supple and No no JVD (There is approximately 1 in or JVD bilaterally.) Resp: Effort & Inspection: abnormal respiratory effort (Patient currently tachypneic and showing signs of dyspnea.) Auscultation: crackles, rales, rhonchi, wheezes and diminished lung sounds Other: Patient without adventitious lung sounds in all altman and/or decreased in all altman. Cardio: Rate: regular rate Rhythm: regular rhythm Heart sounds: no gallops, Murmur heart sound present diastolic and systolic and no rubs Other: There is mild displacement of PMI to the left lateral. GI: Inspection: non-distended Auscultation: normal bowel sounds : Other: Deferred Skin: General skin exam: normal color, no rashes or lesions noted and no erythema Lesions: no lesions noted Rashes: no rashes noted Wounds: wound noted Neuro: Cranial nerves: Yes Equal, round and reactive pupils present Speech: normal speech Motor exam (neuro): Normal motor muscle tone present throughout and Abnormal motor strength present (Generalized weakness.) Sensory Exam: normal sensation Extrem: General: edema (Pitting 1+ to 2+ edema bilater
[2022-05-17] MEDS: SENNA/DOCUSATE SODIUM TABLET 1 TAB PO (21:04)
[2022-05-18] VITALS (9 sets, daily range): BP systolic 99–100; BP diastolic 57–62; PULSE 76–95; RESP 16–22; TEMP 36.6; O2SAT 94–100
[2022-05-18] MEDS: HEPARIN SODIUM 5,000 UNITS/ML VIAL 5000 UNITS SUB-Q (05:38)
[2022-05-18] MEDS: GABAPENTIN 100 MG CAPSULE PO (05:38)
[2022-05-18 07:01] LABS: Basophils Percent Auto 0.5 % (0.2-1.2); Eosinophils Absolute Auto 0.1 K/mm3 (0-0.3); Eosinophils Percent Auto 1.6 % (0-4.4); Hematocrit 30.1 % (37.0-47.0); Hemoglobin 8.5 g/dL (12.0-15.0); Immature Granulocyte Absolute 0.03 K/mm3 (0.00-0.031); Immature Granulocyte Percent A 0.4 % (0-0.5); Immature Platelet Fraction Pct 6.4 % (0.9-11.2); Lymphocytes Absolute Auto 1.79 K/mm3 (0.9-3.2); Lymphocytes Percent Auto 22.5 % (18.3-44.2); Mean Corpuscular HGB Conc 28.2 g/dl (32-36); Mean Corpuscular Hemoglobin 21.1 pg (26-34); Mean Corpuscular Volume 74.7 fl (80-100); Monocytes Absolute Auto 0.4 K/mm3 (0.1-0.6); Monocytes Percent Auto 4.4 % (2.6-8.5); Neutrophils Absolute Auto 5.6 K/mm3 (1.3-6.7); Neutrophils Percent Auto 70.6 % (45.5-73.1); Platelet Count Result 240 k/mm3 (150-375); Red Blood Count 4.03 M/mm3 (4.2-5.4); Red Cell Distribution Width 29.3 % (11.5-14.5); White Blood Count 7.9 K/mm3 (4.5-10.0)
[2022-05-18 07:06] LABS: Alanine Aminotransferase 33 U/L (6-35); Albumin Level 3.7 g/dL (3.5-5.1); Anion Gap 6 mmol/L (8-16); Aspartate Amino Transferase 72 U/L (14-36); Blood Urea Nitrogen 43 mg/dL (7-17); Calcium 9.1 mg/dL (8.4-10.2); Carbon Dioxide 28 mmol/L (22-30); Chloride 101 mmol/L (98-107); Estimated CRCL calculation 41 ml/min; Estimated Glomerular Filt Rate 39; Glucose 147 mg/dL (65-110); Phosphorus 3.4 mg/dL (2.5-4.5); Potassium 3.8 mmol/L (3.4-5.0); Sodium 135 mmol/L (137-145)
[2022-05-18 07:15] LABS: D Dimer 1.45 ug/mL (<0.48)
--- NOTE | 2022-05-18 08:21 | P.PNNP_ITS ---
Progress Note: A&P Assessment and Plan (1) Chronic kidney disease, stage IV (severe): Code(s): N18.4 - Chronic kidney disease, stage 4 (severe) Status: Chronic Assessment and Plan: * due to hypertension, diabetes, vascular disease, and chronic pre renal azotemia (from necessity of diuretic therapy due to ER/CHF). * baseline creatinine was running ~ 2.5mg/dl on last hospitalization/admission * Creatinine running around 1.6 to 1.8 now. * (2) Acute and chronic respiratory failure: Code(s): J96.20 - Acute and chronic respiratory failure, unspecified whether with hypoxia or hypercapnia Status: Acute Assessment and Plan: * secondary to COVID-19 infection and exacerbation of heart failure * complicated by known COPD, pulmonary HTN, GUANACO * finished steroid course * s/p course of antibiotics * Chest x-ray shows persistent infiltrates. Not sure if this is from COVID or volume overload. Her LV is good but she does have diastolic dysfunction (grade 1). Will continue diuretics as tolerated by her kidneys. 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 (3) Pneumonia due to COVID-19 virus: Code(s): U07.1 - COVID-19; J12.82 - Pneumonia due to coronavirus disease 2018 Status: Acute Assessment and Plan: * on isolation, baricitinib and supplemental oxygen * completed course of steroids * Breathing is back to baseline * Respiratory isolation has timed out. (4) CHF exacerbation: Qualifiers: Heart failure type: diastolic Qualified Code(s): I50.33 - Acute on chronic diastolic (congestive) heart failure Code(s): I50.9 - Heart failure, unspecified Status: Resolved Assessment and Plan: * due to her pulmonary hypertension and tricuspid regurgitation * continue diuretic therapy . Now on 80 bid. (5) Hypertension: Qualifiers: Hypertension type: essential hypertension Qualified Code(s): I10 - Essential (primary) hypertension Code(s): I10 - Essential (primary) hypertension Status: Chronic Assessment and Plan: * Systolic well controlled. * follow trend of hemodynamics (6) Diabetes mellitus: Qualifiers: Diabetes mellitus type: type 2 Diabetes mellitus fci insulin use: without fci use Diabetes mellitus complication status: with hyperglycemia Qualified Code(s): E11.65 - Type 2 diabetes mellitus with hyperglycemia Code(s): E11.9 - Type 2 diabetes mellitus without complications Status: Chronic Assessment and Plan: * on accuchecks and ssi per hospitalists. Additional Plan . Subjective Date/time seen: 05/18/22 08:21 Interval history: Becky is feeling okay today. She is on 6L of oxygen. What she says she is on at home. Breathing okay. Eager for discharge. Exam Narrative: General: WD/WN AA female in NAD Heart: normal S1 and S2; no rub Lungs: no wheezes. Fairly clear. Abdomen: soft, nontender, nondistended, positive bowel sounds Extremities:1+ edema bilaterally Skin: no rash Objective Data Vital Signs Vital Signs: Vital Signs - 24 hr 05/17/22 09:00 05/17/22 10:00 05/17/22 11:00 Temperature Pulse Rate 103 H 83 Respiratory Rate Blood Pressure Pulse Oximetry 98 94 Oxyg
--- NOTE | 2022-05-18 08:21 | PM.PNNEP ---
Progress Note: A&P Assessment and Plan (1) Chronic kidney disease, stage IV (severe): Code(s): N18.4 - Chronic kidney disease, stage 4 (severe) Status: Chronic Assessment and Plan: due to hypertension, diabetes, vascular disease, and chronic pre renal azotemia (from necessity of diuretic therapy due to ER/CHF). baseline creatinine was running ~ 2.5mg/dl on last hospitalization/admission Creatinine running around 1.6 to 1.8 now. (2) Acute and chronic respiratory failure: Code(s): J96.20 - Acute and chronic respiratory failure, unspecified whether with hypoxia or hypercapnia Status: Acute Assessment and Plan: secondary to COVID-19 infection and exacerbation of heart failure complicated by known COPD, pulmonary HTN, GUANACO finished steroid course s/p course of antibiotics Chest x-ray shows persistent infiltrates. Not sure if this is from COVID or volume overload. Her LV is good but she does have diastolic dysfunction (grade 1). Will continue diuretics as tolerated by her kidneys. 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 (3) Pneumonia due to COVID-19 virus: Code(s): U07.1 - COVID-19; J12.82 - Pneumonia due to coronavirus disease 2019 Status: Acute Assessment and Plan: on isolation, baricitinib and supplemental oxygen completed course of steroids Breathing is back to baseline Respiratory isolation has timed out. (4) CHF exacerbation: Qualifiers: Heart failure type: diastolic Qualified Code(s): I50.33 - Acute on chronic diastolic (congestive) heart failure Code(s): I50.9 - Heart failure, unspecified Status: Resolved Assessment and Plan: due to her pulmonary hypertension and tricuspid regurgitation continue diuretic therapy . Now on 80 bid. (5) Hypertension: Qualifiers: Hypertension type: essential hypertension Qualified Code(s): I10 - Essential (primary) hypertension Code(s): I10 - Essential (primary) hypertension Status: Chronic Assessment and Plan: Systolic well controlled. 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 Additional Plan . Subjective Date/time seen: 05/18/22 08:21 Interval history: Becky is feeling okay today. She is on 6L of oxygen. What she says she is on at home. Breathing okay. Eager for discharge. Exam Narrative: General: WD/WN AA female in NAD Heart: normal S1 and S2; no rub Lungs: no wheezes. Fairly clear. Abdomen: soft, nontender, nondistended, positive bowel sounds Extremities:1+ edema bilaterally Skin: no rash Objective Data Vital Signs Vital Signs: Vital Signs - 24 hr 05/17/22 09:00 05/17/22 10:00 05/17/22 11:00 Temperature Pulse Rate 103 H 83 Respiratory Rate Blood Pressure Pulse Oximetry 98 94 Oxygen Delivery High Flow Nasal Cannula Nasal Cannula Oxygen Flow Rate 6 6 Fraction of Inspired Oxygen 05/17/22 11:05 05/17/22 11:15 05/17/22 12:00 Temperature 36.9 C Pulse Rate 84 Respiratory Rate 18 Blood Pressure 88/54 L Pulse Oximetry 89 L 95 95 Oxygen Delivery Nasal Cannula Nasal Cannula Oxygen Flow Rate 6 6 Fraction of Inspired Oxygen 05/17/22 12:00 05/17/22 12:00 05/17/22 16:00 Temperature Pulse Rate 86 Respiratory Rate Blood Pressure Pulse Oximetry 93 93 Oxygen Delivery Nasal Cannula Nasal Cannula Oxygen Flow Rate 6 6 Fraction of Inspired Oxygen 05/17/22 14:00 05/17/22 16:00 05/17/22
[2022-05-18] MEDS: UMECLIDINIUM BROMIDE 62.5 MCG ELLIPTA 1 PUFF INHALATION (08:55)
--- NOTE | 2022-05-18 09:17 | PM.PNPUL ---
Progress Note: A&P Assessment and Plan (1) Pneumonia due to COVID-19 virus: Code(s): U07.1 - COVID-19; J12.82 - Pneumonia due to coronavirus disease 2018 Status: Acute Assessment and Plan: This 62 year old female was admitted May 03 with hypoxemia,? 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 She has multiple abnormal lab studies consistent with COVID pneumonia with sepsis.? She was not a candidate for remdesivir due to her acute on chronic renal failure, now better, 05/11 CXR shows patchy bilateral infiltrates, and she is now on 9 L HFNC off AirVO. She is normally on 4 L/min at baseline, so her current need is improving. She has had 1 COVID vaccination. Baricitinib was started May 07.? 05/16/22: Patient tells me she continues to improving his breathing back at her baseline. Currently patient is on 7 L nasal cannula with saturations 93-96%. Baseline she tells me she wears 5-6 L at home at rest, with ambulation and at night. Patient finished her dexamethasone 10 days on 05/13, she is on baracitinib 2 mg q.day since 05/07 And will receive 14 days of treatment or until she is discharged. Chest x-ray today demonstrates stable diffuse lung disease compared with 05/06/2022. 05/17/22 Patient is currently on 6 L nasal cannula with saturation 96% at rest. She continues on the baracitinib (today day 11). continue for 14 days or until discharged. 05/18 Patient is currently on 6 L nasal cannula saturation 96% at rest. I will perform a home O2 assessment today. Continue baracitinib until she is discharged. (2) Acute on chronic respiratory failure with hypoxia and hypercapnia: Code(s): J96.21 - Acute and chronic respiratory failure with hypoxia; J96.22 - Acute and chronic respiratory failure with hypercapnia Status: Acute Assessment and Plan: ABG on 05/04/2022 with a pH of 7.45/33/113 on high-flow nasal cannula 50 L and 60% FiO2. 05/15/22 She has long standing chronic hypoxemic respiratory failure, was on O2 4 L/min and 5 L/min with exertion before Oct 2020 admission; she was on higher O2 with acute episode of COVID pneumonia.? Now down to 9 L HFNC off AirVo and is using BiPAP at night. She has additional issue of decompensated cardiac function, diastolic problem and apparently right heart failure which is acute on chronic. Untreated GUANACO is making these problems worse. She has a PAP machine, possibly a NPPV at home, does not use. 05/16/22: Patient tells me she continues to improving his breathing back at her baseline. Currently patient is on 7 L nasal cannula with saturations 93-96%. creatinine 1.8. Patient finished her dexamethasone 10 days on 05/13, she is on parasitic neb 2 mg q.day since 05/07, Lasix 80 mg p.o. b.i.d., see does 0 limb I had given last night x1 and incruse. 05/17 Patient tells me she is breathing back at her baseline. Currently she is on 6 L nasal cannula saturation 96%. Patient had an overnight oximetry on 7 L high-flow nasal cannula with an baseline saturation 94%. Low saturation 49%. Time with saturation less than or equal to 88% was 41 minutes, representing 11% of the monitored time. I suspect her hypoxemia is related to lack of BIPAP use. Of note the patient does have obstructive sleep apnea with an AHI of 11.2 on 08/13/2020 with an optimal pressure of 12/7 and she uses 6 L bleed in at home and says that she wears her mask about every other night. I am attempting to obtain a download. I will perform an overnight oximetry on BiPAP 10/05 with 6 L bleed in [facility]. 05/18 Last night the patient was placed on her home machine with 6 L bleed in and the respiratory therapist called me at 11:00 p.m. stating her saturations were 83% we tried to increase the FiO2 to 9 L bleed in but she
[2022-05-18 09:49] LABS: NT Pro B Type Natriuretic Pept 4340 pg/mL (5-100)
[2022-05-18] MEDS: PANTOPRAZOLE 40 MG TABLET PO (10:05)
[2022-05-18] MEDS: POLYSACCHARIDE IRON COMPLEX 150 MG CAPSULE PO (10:06)
[2022-05-18] MEDS: EZETIMIBE 10 MG TABLET PO (10:06)
[2022-05-18] MEDS: polyethylene glycoL 3350 17 GM POWD.PACK PO (10:06)
[2022-05-18] MEDS: TOLNAFTATE 1% POWDER 45 GM BTL 1 APPLIC TOPICAL (10:13)
[2022-05-18] MEDS: BARICITINIB 2 MG TABLET PO (10:13)
--- NOTE | 2022-05-18 10:22 | PM.DS ---
DS: Admitting Diagnosis Discharge Date 05/18/22 Admitting Diagnosis Acute on Chronic Resp Failure 2/2 COVID 19 Stage 4 CKD DS: Discharge Diagnosis Discharge Diagnosis (1) Pneumonia due to COVID-19 virus: Code(s): U07.1 - COVID-19; J12.82 - Pneumonia due to coronavirus disease 2018 Status: Acute (2) Chronic kidney disease, stage IV (severe): Code(s): N18.4 - Chronic kidney disease, stage 4 (severe) Status: Chronic (3) Acute on chronic respiratory failure with hypoxia and hypercapnia: Code(s): J96.21 - Acute and chronic respiratory failure with hypoxia; J96.22 - Acute and chronic respiratory failure with hypercapnia Status: Acute (4) Acute exacerbation of chronic obstructive pulmonary disease: Code(s): J44.1 - Chronic obstructive pulmonary disease with (acute) exacerbation Status: Acute (5) COVID-19: Code(s): U07.1 - COVID-19 Status: Acute (6) Pulmonary hypertension: Code(s): I27.20 - Pulmonary hypertension, unspecified Status: Acute (7) Acute diastolic (congestive) heart failure: Code(s): I50.31 - Acute diastolic (congestive) heart failure Status: Acute (8) Melena: Code(s): K92.1 - Melena Status: Acute (9) Anemia: Code(s): D64.9 - Anemia, unspecified Status: Acute DS: Summary Hospital Course Reason for hospitalization: Acute on Chronic Resp Failure Hospital Course: 62-year-old female patient with significant past medical history of congestive heart failure, COPD, obstructive sleep apnea, chronic respiratory failure, chronic oxygen therapy, cirrhosis of liver, and renal insufficiency is brought to the emergency room today by EMS with complaints of having a cough for approximately 1 week with increasing shortness of breath that is worse with any activity. Was found to be COVID 19 positive along with acute diastolic CHF exacerbation. Was treated with steroids, antibiotic, O2 support, Baricitinib untill day of discharge. She was aggressively diuresed. Cardiology, Pulmonary and Nephrology were consulted. GI was consulted for anemia, advised for supportive treatment and outpatient endoscopy at later time once acute crisis is over. Patient was eventually discharged home on 6lNC with BIPAP, triology and diuretic therapy.Advised to follow up with Pulmonary and Nephrology as outpatient. Status at Discharge Overall status at discharge: patient is progressing back to baseline Time Spent with Patient Time attestation: Total time spent providing and/or coordinating discharge services: Time spent: Greater than 30 minutes Exam Const: General: comfortable and no acute distress HENMT: Mouth: Yes moist mucous membranes Eyes: General: appearance normal, both eyes and all related structures Sclera: sclerae normal Neck: Neck: supple Resp: Effort & Inspection: normal respiratory effort Cardio: Rate: regular rate Rhythm: regular rhythm GI: GI Palp: Yes Soft to palpation Auscultation: normal bowel sounds Extrem: General: normal to inspection Psych: Mental Status: mental status grossly normal DS: Data Data Completed and Pending Labs on day of discharge: Labs from last 24 hours 05/18/22 05/18/22 05/18/22 06:30 06:30 06:30 WBC 7.9 RBC 4.03 L Hgb 8.5 L Hct 30.1 L MCV 74.7 L MCH 21.1 L MCHC 28.2 L RDW 29.3 H Plt Count 240 MPV TNP Immature Gran % (Auto) 0.4 Neut % (Auto) 70.6 Lymph % (Auto) 22.5 [place] % (Auto) 4.4 Eos % (Auto) 1.6 Baso % (Auto) 0.5 Lymph # (Auto) 1.79 [place] # (Auto) 0.4 Eos # (Auto) 0.1 Baso # (Auto) 0.0 Abs Immat Gran (auto) 0.03 Absolute Neuts (auto) 5.6 Absolute Nucleated RBC 0.0 Nucleated RBC % 0.0 % Immature Plt Fraction 6.4 D-Dimer 1.45 H Sodium 135 L Potassium 3.8 Chloride 101 Carbon Dioxide 28 Anion Gap 6 L BUN 43 H Creatinine 1.60 H Estim Creat Clear Calc 41 Estimate
--- NOTE | 2022-05-18 11:32 | PCRCNOTE ---
SPOKE WITH HIEN AT [facility] PT. REGARDING CHECKING PT'S HOME BIPAP UNIT. PT HAS BEEN NON COMPLIANT FOR A YEAR AND SHE STATES THAT THEY WILL NOT COME TO THE HOSPITAL TO SERVICE HER MACHINE BUT THEY WILL BE WILLING TO SERVICE THE MACHINE IF PT WILL BRING MACHINE TO THEIR OFFICE AFTER DISCHARGE. DR. DE LEÓN NOTIFIED ALONG WITH ROBERT STEVE AND CASSIDY IN CASE MANAGEMENT.
--- NOTE | 2022-05-18 13:45 | PC.NURSE ---
Patient and daughter stated they are going straight to have her Home CPAP machine fixed before she goes home.
== END 2022-05-18 13:53 | disposition home health service (06) | DRG 177 ==
LOC: ANHED 09:10 → ANHIMU 12:12
PROVIDERS: Internal Medicine Nephrology; Internal Medicine Pulmonary Disease; Nurse Practitioner Adult Health; Student in an Organized Health Care Education/Training Program; Admitting Provider Chiropractor; Emergency Provider Emergency Medicine; PCP Internal Medicine Infectious Disease; Visit Provider Internal Medicine
DX: U07.1 COVID-19 (principal); I50.33 Acute on chronic diastolic (congestive) heart failure; J12.82 Pneumonia due to coronavirus disease 2019; J96.21 Acute and chronic respiratory failure with hypoxia; J96.22 Acute and chronic respiratory failure with hypercapnia; I13.0 Hypertensive heart and chronic kidney disease with heart failure and stage 1 through stage 4 chronic kidney disease, or unspecified chronic kidney disease; N18.4 Chronic kidney disease, stage 4 (severe); N17.9 Acute kidney failure, unspecified; K92.1 Melena; I47.2 Ventricular tachycardia; D50.0 Iron deficiency anemia secondary to blood loss (chronic); J43.9 Emphysema, unspecified; D63.1 Anemia in chronic kidney disease; I07.1 Rheumatic tricuspid insufficiency; E11.22 Type 2 diabetes mellitus with diabetic chronic kidney disease; G47.33 Obstructive sleep apnea (adult) (pediatric); K74.60 Unspecified cirrhosis of liver; E11.65 Type 2 diabetes mellitus with hyperglycemia; E78.5 Hyperlipidemia, unspecified; R91.1 Solitary pulmonary nodule; Z99.81 Dependence on supplemental oxygen; Z87.891 Personal history of nicotine dependence; Z90.49 Acquired absence of other specified parts of digestive tract; Z79.82 Long term (current) use of aspirin; Z91.19 Patient's noncompliance with other medical treatment and regimen
CPT/HCPCS: 36415; 36430; 36600; 71045; 80053; 80069; 81001; 82274; 82375; 82565; 82570; 82607; 82728; 82746; 82805; 82948; 83050; 83540; 83550; 83605; 83615; 83735; 83880; 84145; 84156; 84300; 84443; 84450; 84460; 84484; 84540; 85025; 85046; 85055; 85380; 85610; 85730; 86140; 86850; 86900; 86901; 86920; 87040; 93005; 93306; 94002; 94003; 94618; 94640; 94762; 96374; 97110; 97161; 97165; 97530; 97535; 99291; A9270; C9803; J0456; J0696; J1100; J1120; J1644; J1940; J7040; J7050; P9016; U0003; U0005

== ENCOUNTER 2022-06-30 18:39 | Inpatient (IN) | payer MEDICARE, MEDICAID, SELFPAY ==
[2022-06-30] VITALS (13 sets, daily range): BP systolic 83–114; BP diastolic 56–68; PULSE 81–89; RESP 16–26; TEMP 36.3–36.8; O2SAT 95–100
--- NOTE | ~2022-06-30 | XR_ITS ---
EXAMINATION: XR chest 2V DATE: 07/03/2022 11:06 INDICATION: Shortness of breath. TECHNIQUE: Frontal and lateral views of the chest were obtained. COMPARISON: Chest single view 06/30/2022, chest CT 07/02/2022 FINDINGS: There are small pleural effusions. There are interstitial opacities in the mid and lower satish ng zones, likely mild pulmonary edema. No pneumothorax. Cardiomegaly is noted. IMPRESSION: 1. Mild pulmonary edema. 2. Small pleural effusions. 3. Cardiomegaly. Reviewed, dictated and finalized at location A.
--- NOTE | ~2022-06-30 | CT_ITS ---
EXAMINATION:CT chest high resolution wo mi DATE: 07/02/2022 13:57 INDICATION: Shortness of breath. Pleural effusion. TECHNIQUE: Computed tomography (CT) of the chest was performed without intravenous contrast. Automate d exposure control and iterative reconstruction technique were employed. The dose-length product (DLP ) was 723.58 mGy-cm. COMPARISON: Chest CT 11/24/2021 FINDINGS: There is mild emphysema. There is septal thickening in the lungs, consistent with mild pulm onary edema. There is mild atelectasis bilaterally. There is a chronic 12 mm nodule in right upper lo be containing fat, consistent with a hamartoma. No pleural effusion. Motion artifact is noted, which decreases sensitivity. Cardiomegaly is noted. There are coronary artery calcifications. There is a tr brandi pericardial effusion. The central pulmonary arteries are enlarged, consistent with pulmonary radha rial hypertension. There is mild mediastinal and bilateral hilar lymphadenopathy. There is mild thora cic spondylosis. IMPRESSION: 1. Mild emphysema. 2. Mild pulmonary edema. 3. Cardiomegaly. 4. Stable mild mediastinal and bilateral hilar lymphadenopathy, likely reactive. Reviewed, dictated and finalized at location A. IMPRESSION: 1. Mild emphysema. 2. Mild pulmonary edema. 3. Cardiomegaly. 4. Stable mild mediastinal and bilateral hilar lymphadenopathy, likely reactive .
--- NOTE | ~2022-06-30 | NM_ITS ---
EXAMINATION: NM pulmonary perfusion DATE: 07/01/2022 11:54 INDICATION: Dyspnea. TECHNIQUE: 5.5 mCi Tc-99m MAA was administered intravenously for perfusion images. Scintigraphic yariel ges of the chest were obtained. COMPARISON: Chest single view 06/30/2022, chest CT 11/24/2021 FINDINGS: Perfusion images show matched large defects in the upper lobes and matched small and moderate sized d efects in the lower lobes. IMPRESSION: 1. Nondiagnostic (intermediate probability for pulmonary embolism). Reviewed, dictated and finalized at location A.
--- NOTE | ~2022-06-30 | XR_ITS ---
EXAMINATION: XR chest 1V portable DATE: 06/30/2022 19:13 INDICATION: Dyspnea TECHNIQUE: frontal view of the chest was obtained. COMPARISON: Chest radiograph dated 05/16/[address] dated 11/24/2021 FINDINGS: Cardiomegaly. There is also enlargement of the central pulmonary arteries consistent with pulmonary a rterial hypertension. Increased interstitial and airspace opacities in bilateral lower lung zones. No pleural effusion or pneumothorax. Subtle 12 mm right upper lobe nodule which demonstrates macroscopi c fat attenuation on prior CT consistent with a hamartoma. IMPRESSION: 1. Interstitial and airspace opacities in the bilateral lower lung zones most likely mild pulmonary e edwar although differential includes atelectasis and pneumonia. 2. Cardiomegaly with enlargement of the central pulmonary arteries consistent with pulmonary arterial hypertension. Reviewed, dictated and finalized at location A. IMPRESSION: 1. Interstitial and airspace opacities in the bilateral lower lung zones most l ikely mild pulmonary edema although differential includes atelectasis and pneum onia. 2. Cardiomegaly with enlargement of the central pulmonary arteries consistent w ith pulmonary arterial hypertension.
--- NOTE | 2022-06-30 18:52 | ECG_ITS ---
Measurements Intervals Holcomb Rate: 84 P: 70 TN: 185 QRS: 87 QRSD: 118 T: 89 QT: 393 QTc: 467 Interpretive Statements SINUS RHYTHM POSSIBLE LEFT ATRIAL ENLARGEMENT INCOMPLETE RIGHT BUNDLE BRANCH BLOCK BORDERLINE ST-T WAVE ABNORMALITY- INF/HIGH LAT LEADS BASELINE ARTIFACT- V5-V6 BORDERLINE ECG COMPARED TO ECG 05/03/2022 08:34:10 INCOMPLETE RIGHT BUNDLE-BRANCH BLOCK NOW PRESENT Electronically Signed On 06-30-2022 20:40:55 CDT by Jett Hopkins D.O.
[2022-06-30 19:07] LABS: Alveolar/Arterial O2 Gradient 581.8 mmHg; Base Excess ABG -4.9 mEq/l (+/-2.0); Fractional Inspired Oxygen 100 %; Oxygen Content ABG 9.6 %vol (16.0-22.0); Oxygen Saturation ABG 97.2 % (95.0-100.0); Oxyhemoglobin 94.7 % THb (90.0-100.0); PCO2 ABG 35.5 mmHg (35.0-45.0); PO2 ABG 95.7 mmHg (80.0-100.0); PO2 FiO2 Ratio Arterial Blood 0.96 %; pH ABG 7.368 (7.350-7.450)
[2022-06-30 19:09] LABS: Device NON-REBREATHER MASK; Modified Allen's Test Pass; Site Drawn RIGHT RADIAL; Total Hemoglobin 7.1 g/dL (12.0-18.0)
--- NOTE | 2022-06-30 19:32 | ED.GENADULT ---
HPI - General Adult General Chief complaint: Shortness of Breath/Dyspnea Stated complaint: SOB, EDEMA Time Seen by Provider: 06/30/22 19:17 History of Present Illness HPI narrative: Patient is a 62-year-old female who presents the emergency department with chief complaint of shortness of breath. Patient reports she has history of COPD and CHF and reports that she was last hospitalized about a month and a half ago. Patient states that she has been having increasing PND reports that she is at increased edema. Patient states that her legs have become swollen so much that she is having difficulty ambulating and reports at night whenever she is laying flat she will have to sit up about every 15 minutes and stand sit on the edge of the bed patient reports that she had some tightness in her chest this evening that was improved with sublingual nitro given to her by EMS and the patient reports that the oxygen is helping she Related Data Home Medications Medication Instructions Recorded Confirmed atorvastatin 40 mg tablet 40 mg PO DAILY 09/08/19 05/03/22 ezetimibe 10 mg tablet 10 mg PO DAILY 09/08/19 05/03/22 polysaccharide iron complex 150 mg 150 mg PO BID 07/11/20 05/03/22 iron capsule (Poly-Iron) metformin 500 mg tablet,extended 500 mg PO DAILY 04/07/21 05/03/22 release 24 hr umeclidinium 62.5 mcg-vilanterol 1 inh inhalation DAILY 10/02/21 05/03/22 25 mcg/actuation powdr for inhalation (Anoro Ellipta) Allergies Allergy/AdvReac Type Severity Reaction Status Date / Time Penicillins Allergy Hives Verified 11/19/21 12:59 Sulfa (Sulfonamide Allergy Itching Verified 11/19/21 12:59 Antibiotics) Review of Systems Review of Systems: A 10 system review of systems was completed on the patient and is negative except for what is stated in the HPI. Nursing and ancillary documentation was reviewed. ON LICENSE OF [facility] Past Medical History Medical History Adrenal mass Chronic anemia Chronic hypoxemic respiratory failure Chronic obstructive pulmonary disease Congestive heart failure Diabetes mellitus Hyperlipidemia Hypertension Lung nodule 11 mm Tobacco abuse 35 pack year, quit Aug 2019. Surgical History Surgical History History of 3 sections History of appendectomy History of cholecystectomy History of colonoscopy with polypectomy History of esophagogastroduodenoscopy Family History Family History Grandparent Congestive heart failure Mother HTN (hypertension) with goal to be determined Hyperlipidemia Cancer Sibling Age: 55 HTN (hypertension) with goal to be determined Asthma Lupus Sibling Age: 52 Diabetes mellitus Heart disease Social History Social History Social History: Lives in [place]. 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 Has 3 children. Smoked up to 2 packs of cigarettes a day for 40 years. Occasional alcohol use in moderation. Smoking packs per day: 2 Smoking cigarettes per day: 40.0 Years smoked: 30 Smoking pack-years: 60.00 Smoking status: Former smoker Tobacco type: cigarettes Smoking end date: 10/30/18 Alcohol intake: never Substance use: never Spiritual care concerns: No Exam Narrative: GENERAL: Well-appearing, well-nourished, and in no acute distress. HEAD: Normocephalic, atraumatic. EYES: PERRLA and EOMI. ENT: Nares clear, no rhinorrhea or epistaxis. Mucous membranes moist. NECK: Supple. CHEST: Clear to auscultation. No respiratory distress. HEART: Regular rate and rhythm. Systolic ejection murmur heard. Normal peripheral pulses. ABDOMEN: Soft, nontender, nondistended, normal active bowel sounds. EXTREMITIES: Normal range of motion.
[2022-06-30 19:49] LABS: Basophils Percent Auto 0.4 % (0.2-1.2); Eosinophils Percent Auto 0.2 % (0-4.4); Hematocrit 22.3 % (37.0-47.0); Immature Granulocyte Absolute 0.02 K/mm3 (0.00-0.031); Immature Granulocyte Percent A 0.2 % (0-0.5); Immature Platelet Fraction Pct 4.5 % (0.9-11.2); Lymphocytes Absolute Auto 0.76 K/mm3 (0.9-3.2); Lymphocytes Percent Auto 7.4 % (18.3-44.2); Mean Corpuscular HGB Conc 28.7 g/dl (32-36); Mean Corpuscular Hemoglobin 20.7 pg (26-34); Mean Corpuscular Volume 72.2 fl (80-100); Monocytes Absolute Auto 0.5 K/mm3 (0.1-0.6); Monocytes Percent Auto 5.3 % (2.6-8.5); Neutrophils Absolute Auto 8.9 K/mm3 (1.3-6.7); Neutrophils Percent Auto 86.5 % (45.5-73.1); Nucleated Red Blood Cells Absolute Auto 0.1 K/mm3 (0.0-0.012); Nucleated Red Blood Cells Perc 0.9 % (0.0-0.2); Platelet Count Result 265 k/mm3 (150-375); Red Blood Count 3.09 M/mm3 (4.2-5.4); Red Cell Distribution Width 27.4 % (11.5-14.5); White Blood Count 10.3 K/mm3 (4.5-10.0)
[2022-06-30 19:55] LABS: Alanine Aminotransferase 12 U/L (6-35); Albumin Level 3.6 g/dL (3.5-5.1); Alkaline Phosphatase 140 U/L (38-126); Anion Gap 17 mmol/L (8-16); Aspartate Amino Transferase 32 U/L (14-36); Bilirubin,Total 1.4 mg/dL (0.2-1.3); Blood Urea Nitrogen 63 mg/dL (7-17); Carbon Dioxide 15 mmol/L (22-30); Chloride 102 mmol/L (98-107); Estimated CRCL calculation 33 ml/min; Estimated Glomerular Filt Rate 27; Glucose 146 mg/dL (65-110); Potassium 4.3 mmol/L (3.4-5.0); Sodium 134 mmol/L (137-145)
[2022-06-30 19:57] LABS: INR 1.9; Partial Thromboplastin Time 32.5 SECONDS (22.3-36.8); Prothrombin Time 21.3 Seconds (11.1-14.7)
[2022-06-30 20:04] LABS: Hemoglobin 6.4 g/dL (12.0-15.0)
[2022-06-30 20:05] LABS: Anisocytosis 1+ (NORMAL); Hypochromasia 2+ (NORMAL); Platelet Estimate Adequate (Adequate); Poikilocytosis 1+ (NORMAL)
[2022-06-30 20:06] LABS: Target Cells 1+ (NORMAL)
[2022-06-30 20:07] LABS: NT Pro B Type Natriuretic Pept 8620 pg/mL (5-100); Troponin I 0.015 ng/mL (0.000-0.034)
[2022-06-30 20:08] LABS: D Dimer 2.65 ug/mL (<0.48)
[2022-06-30 20:09] LABS: Ovalocytes 1+ (NORMAL)
[2022-06-30 20:10] LABS: Microcytosis 1+ (NORMAL); Schistocytes 1+ (NORMAL)
[2022-06-30 20:30] LABS: Hemoglobin 6.2 g/dL (12.0-15.0)
[2022-06-30 20:44] LABS: Appearance Urine Clear (Clear); Bilirubin Urine Negative (Negative); Blood Urine Negative (Negative); Color Urine Yellow (Yellow); Glucose Urine UA Negative (Negative); Ketones Urine Negative (Negative); Leukocyte Esterase Ur Trace LEU/UL (Negative); Nitrate Urine Negative (Negative); Protein Urine Negative (Negative); Urobilinogen Urine 0.2 mg/dL (<2.0)
[2022-06-30 20:46] LABS: Bacteria Urine Trace /hpf; Mucus Urine Rare /lpf; RBC Urine 0-2 /hpf (0-2); Squamous Epithelial Cell Urine Rare /hpf (Few); WBC Urine 0-3 /hpf
[2022-06-30 20:47] LABS: Add Urine Microscopic? YES
[2022-06-30] MEDS: diphenhydrAMINE HCl INJ 50 MG/ML VIAL 25 MG IV PUSH (22:12)
[2022-06-30] MEDS: ACETAMINOPHEN 325 MG TABLET 650 MG PO (22:15)
[2022-06-30] MEDS: FUROSEMIDE INJ 40 MG/4 ML VIAL IV PUSH ×2 (22:42→23:36)
[2022-06-30] MEDS: SODIUM CHLORIDE 0.9% IV 250 ML 30 ML IV CONT (23:36)
[2022-06-30] MEDS: TUBING, BLOOD SET 1 EACH XX (23:36)
[2022-07-01] VITALS (37 sets, daily range): BP systolic 98–107; BP diastolic 58–72; PULSE 74–92; RESP 16–36; TEMP 36–36.9; O2SAT 78–100; BMI 41.8
[2022-07-01] MEDS: IPRATROPIUM BR 0.02% INH SOLN 0.5 MG/2.5 ML VIAL INHALATION ×4 (02:01→20:36)
[2022-07-01] MEDS: ALBUTEROL SULFATE NEB 2.5 MG/3 ML INH 5 MG INHALATION ×4 (02:01→20:36)
--- NOTE | 2022-07-01 03:05 | PM.IMHP ---
H&P: HPI History of Present Illness Date/Time: 07/01/22 03:05 Chief Complaint: Shortness of breath Narrative: 62-year-old female with past medical history of chronic lung disease, severe pulmonary hypertension with right to left shunt, grade 1 diastolic dysfunction, obstructive sleep apnea noncompliant with BiPAP, chronic kidney disease stage 3 and chronic hypercapnic hypoxic respiratory who presented to the ER via EMS with shortness of breath. Patient was hospitalized about a month and a half ago for CHF exacerbation. She reports that when she was discharged home her primary care physician stopped her Lasix and her losartan. Since he was discharged from the hospital she has not been using her BiPAP as she feels like it does not work. She reports that for the last couple of weeks she has had increasing shortness of breath and orthopnea. She also had paroxysmal nocturnal dyspnea and has to sit up about every 15 minutes. She then ends up sitting up all night and not really sleeping. She has noticed increased abdominal swelling over the last 3 weeks or so and is increased lower extremity swelling for the last 3 days or so. Over the last 3 days she has also developed some tightness in her lower chest which she reports usually happens when she starts to swell. She reports that her shortness of breath was quite severe until EMS gave her sublingual nitro which improved her symptoms. She also reports that switching to the oxygen at the hospital seem to help her symptoms. She received 80 mg of IV Lasix in the ER and is only had 150 mL and urine output. She has a Pope catheter in place from monitoring strict I&O's. She denies any cough, congestion or fevers. She denies any dysuria or changes in urinary frequency. She reports that she has become progressively more weak due to her symptoms. She ambulates with a rolling walker. She reports that her appetite has taken a down turn over the last several days. She denies any nausea or vomiting. However, she did have some nausea following nitro administration in the ambulance. She does have a history of iron deficiency anemia and gastritis in the past. She last received a blood transfusion in April and it was recommended that she follow-up for outpatient scopes after stabilization of her heart failure and respiratory symptoms. The patient did not follow-up with GI. She has been compliant with her PPI therapy. The patient reports that she does not have a scale that functions at home. Her discharge weight 05/18/2022 was 105.5 kg. Her weight on admission today was 124.8 kg. Review of Systems Review of Systems: 12 systems were reviewed with pertinent positives and negatives per HPI. Except as documented in the HPI, all other systems were reviewed and are negative. [facility] Past Medical History Medical History (Updated 07/01/22 @ 07:33 by Blaire Whalen DO) Adrenal mass Chronic cor pulmonale Chronic kidney disease, stage IV (severe) Chronic obstructive pulmonary disease Chronic respiratory failure with hypoxia, on home O2 therapy CKD (chronic kidney disease) Congestive heart failure Echocardiogram 04/2022: Left ventricular systolic function 65-70, mildly increased left ventricular wall thickness, grade 1 diastolic dysfunction, E/E 12 is mildly elevated, right ventricular is mildly enlarged, mild left atrial enlargement, right atrial enlargement severe, mild aortic valve sclerosis, moderate tricuspid valve regurgitation, severe pulmonary hypertension with RVSP of 84, dilated inferior vena cava with less than 50% collapse consistent with elevated right atrial pressures 15, trivial pericardial effusion Diabetes mellitus Erosive gastritis Hyperlipidemia Hypertension Lung nodule 11 mm Obstructive sleep apnea treated with BiPAP Severe pulmonary hypertension With right to left shunt the patient was transferred to [facility] in November for possible right heart catheterization which she reports she did not get and
[2022-07-01 05:06] LABS: Hematocrit 25.7 % (37.0-47.0); Hemoglobin 7.8 g/dL (12.0-15.0); Immature Platelet Fraction Pct 4.4 % (0.9-11.2); Mean Corpuscular HGB Conc 30.4 g/dl (32-36); Mean Corpuscular Hemoglobin 22.2 pg (26-34); Platelet Count Result 241 k/mm3 (150-375); Red Blood Count 3.52 M/mm3 (4.2-5.4); Red Cell Distribution Width 26.5 % (11.5-14.5); White Blood Count 9.1 K/mm3 (4.5-10.0)
[2022-07-01 05:18] LABS: Anion Gap 8 mmol/L (8-16); Blood Urea Nitrogen 62 mg/dL (7-17); Calcium 8.9 mg/dL (8.4-10.2); Carbon Dioxide 18 mmol/L (22-30); Chloride 104 mmol/L (98-107); Estimated CRCL calculation 30 ml/min; Estimated Glomerular Filt Rate 25; Glucose 126 mg/dL (65-110); Potassium 4.4 mmol/L (3.4-5.0); Sodium 130 mmol/L (137-145)
[2022-07-01 08:15] LABS: Glucose Point of Care 119 mg/dl (65-105)
[2022-07-01] MEDS: UMECLIDINIUM/VILANTEROL 62.5-25 MCG ELLIPTA 1 PUFF INHALATION (08:34)
[2022-07-01] MEDS: POLYSACCHARIDE IRON COMPLEX 150 MG CAPSULE PO ×2 (08:58→17:26)
[2022-07-01] MEDS: EZETIMIBE 10 MG TABLET PO (08:58)
[2022-07-01] MEDS: GABAPENTIN 100 MG CAPSULE PO ×2 (08:58→17:26)
[2022-07-01] MEDS: FUROSEMIDE INJ 40 MG/4 ML VIAL IV PUSH ×2 (08:58→21:38)
[2022-07-01] MEDS: ATORVASTATIN 40 MG TABLET PO (08:58)
[2022-07-01] MEDS: PANTOPRAZOLE 40 MG TABLET PO ×2 (09:01→17:27)
[2022-07-01 13:08] LABS: Glucose Point of Care 136 mg/dl (65-105)
[2022-07-01 16:29] LABS: Glucose Point of Care 145 mg/dl (65-105)
[2022-07-01 21:02] LABS: Glucose Point of Care 187 mg/dl (65-105)
[2022-07-02] VITALS (30 sets, daily range): BP systolic 104–163; BP diastolic 56–118; PULSE 65–92; RESP 12–29; TEMP 36.2–36.6; O2SAT 88–100
[2022-07-02] MEDS: IPRATROPIUM BR 0.02% INH SOLN 0.5 MG/2.5 ML VIAL INHALATION ×4 (01:44→20:45)
[2022-07-02] MEDS: ALBUTEROL SULFATE NEB 2.5 MG/3 ML INH 5 MG INHALATION ×4 (01:44→20:47)
--- NOTE | 2022-07-02 07:41 | PM.IMPN ---
Progress Note: A&P Assessment and Plan (1) Severe anemia: Code(s): D64.9 - Anemia, unspecified Status: Acute Assessment and Plan: Hemoglobin stable at 7.6, will transfuse 1 more unit and monitor if chest CT shows no fluid overload, report pending Likely 2/2 iron def and gastritis, check FOBT, consider GI consult (2) Obstructive sleep apnea treated with BiPAP: Code(s): G47.33 - Obstructive sleep apnea (adult) (pediatric) Status: Acute Assessment and Plan: BiPAP with settings of 12/7 with 44% FiO2 have been ordered per patient's home regimen. Patient is tolerating BiPAP at this time. The importance of complying with BiPAP therapy was discussed with the patient in detail. (3) Acute and chronic respiratory failure: Code(s): J96.20 - Acute and chronic respiratory failure, unspecified whether with hypoxia or hypercapnia Status: Acute Assessment and Plan: The patient was on 8 L high-flow nasal cannula instead of her home nasal cannula of 6 L. She is maintaining oxygen saturations. BiPAP as discussed above. Will continue diuretic therapy and treat underlying pulmonary hypertension and CHF exacerbation. Could be 2/2 PE, VQ scan showed intermediate probability, hold off on a/c for now, FOBT pending (4) Pulmonary hypertension: Code(s): I27.20 - Pulmonary hypertension, unspecified Status: Acute Assessment and Plan: Patient had been transferred to tertiary care in the past for further evaluation right-sided heart failure with cor pulmonale with right to left shunt. Sounds as if the patient did not actually have any intervention at that time. Patient would benefit from being compliant with her BiPAP therapy. (5) Acute exacerbation of congestive heart failure: Code(s): I50.9 - Heart failure, unspecified Status: Acute Assessment and Plan: Likely exacerbated by noncompliance with BiPAP therapy and severe anemia. Will continue Lasix 40 mg IV daily. Will monitor strict I&O's and daily weights. 07/02: Increased diuresis to Lasix 40 mg twice daily, monitor (6) Elevated d-dimer: Code(s): R79.89 - Other specified abnormal findings of blood chemistry Status: Acute Assessment and Plan: Patient has chronically elevated D-dimer. D-dimer is higher than in the past. Will check V/Q scan. 07/02: V/Q scan showed intermediate probability for PE (7) Chronic kidney disease, stage IV (severe): Code(s): N18.4 - Chronic kidney disease, stage 4 (severe) Status: Chronic Assessment and Plan: Patient does have increased creatinine from baseline by suspect patient likely has some component of cardiorenal syndrome. Creatinine may also be elevated due to relative hypotension. Will provide volume replacement with blood transfusion while attempting diuresis. 07/02: Creatinine down to 2.3 from 2.4, continue to monitor Plan DVT prophylaxis with SCDs GI prophylaxis and indicated Code status DNR Subjective Date/time seen: 07/02/22 07:41 Interval history: Patient states she feels a little more short of breath today than yesterday. No overnight events noted. No chest pain or palpitations. No nausea, vomiting or diarrhea. No fevers or chills. Review of Systems Review of Systems: 12 point review of systems was assessed and was negative except as noted in the HPI Exam Narrative: General: Somewhat labored breathing, appears uncomfortable on 8 L high-flow, normally on 6 L nasal cannula baseline HEENT: Atraumatic, normocephalic, mucous membranes moist CV: Regular rate and rhythm, S1, S2 Lungs: Scattered crackles noted, diminished at bases Abdomen: Soft, nontender, nondistended Extremities: Normal to inspection, bilateral 2+ pitting edema of lower extremities noted Skin: No rashes noted, no lesions or wounds seen Psych: Euthymic, normal affect Objective Data Vital Signs Vital Signs: V
[2022-07-02 08:27] LABS: Glucose Point of Care 134 mg/dl (65-105)
[2022-07-02 08:44] LABS: Alanine Aminotransferase 10 U/L (6-35); Albumin Level 3.4 g/dL (3.5-5.1); Alkaline Phosphatase 144 U/L (38-126); Anion Gap 17 mmol/L (8-16); Aspartate Amino Transferase 31 U/L (14-36); Bilirubin,Total 1.7 mg/dL (0.2-1.3); Blood Urea Nitrogen 65 mg/dL (7-17); Calcium 8.6 mg/dL (8.4-10.2); Carbon Dioxide 19 mmol/L (22-30); Chloride 102 mmol/L (98-107); Estimated CRCL calculation 31 ml/min; Estimated Glomerular Filt Rate 26; Glucose 131 mg/dL (65-110); Potassium 3.9 mmol/L (3.4-5.0); Sodium 138 mmol/L (137-145)
[2022-07-02] MEDS: UMECLIDINIUM/VILANTEROL 62.5-25 MCG ELLIPTA 1 PUFF INHALATION (08:51)
[2022-07-02] MEDS: POLYSACCHARIDE IRON COMPLEX 150 MG CAPSULE PO ×2 (09:46→17:45)
[2022-07-02] MEDS: GABAPENTIN 100 MG CAPSULE PO ×3 (09:47→17:46)
[2022-07-02] MEDS: ATORVASTATIN 40 MG TABLET PO (09:47)
[2022-07-02] MEDS: FUROSEMIDE INJ 40 MG/4 ML VIAL IV PUSH ×2 (09:47→20:14)
[2022-07-02] MEDS: EZETIMIBE 10 MG TABLET PO (09:47)
[2022-07-02] MEDS: PANTOPRAZOLE 40 MG TABLET PO ×2 (09:47→17:45)
[2022-07-02 10:36] LABS: Basophils Percent Auto 0.3 % (0.2-1.2); Eosinophils Absolute Auto 0.1 K/mm3 (0-0.3); Eosinophils Percent Auto 0.7 % (0-4.4); Hematocrit 26.1 % (37.0-47.0); Hemoglobin 7.6 g/dL (12.0-15.0); Immature Granulocyte Absolute 0.05 K/mm3 (0.00-0.031); Immature Granulocyte Percent A 0.5 % (0-0.5); Immature Platelet Fraction Pct 3.6 % (0.9-11.2); Lymphocytes Absolute Auto 0.97 K/mm3 (0.9-3.2); Lymphocytes Percent Auto 9.5 % (18.3-44.2); Mean Corpuscular HGB Conc 29.1 g/dl (32-36); Mean Corpuscular Hemoglobin 21.5 pg (26-34); Mean Corpuscular Volume 73.9 fl (80-100); Mean Platelet Volume 9.9 fl (7.4-10.4); Monocytes Absolute Auto 0.6 K/mm3 (0.1-0.6); Monocytes Percent Auto 6.1 % (2.6-8.5); Neutrophils Absolute Auto 8.5 K/mm3 (1.3-6.7); Neutrophils Percent Auto 82.9 % (45.5-73.1); Nucleated Red Blood Cells Absolute Auto 0.1 K/mm3 (0.0-0.012); Nucleated Red Blood Cells Perc 0.8 % (0.0-0.2); Platelet Count Result 245 k/mm3 (150-375); Red Blood Count 3.53 M/mm3 (4.2-5.4); Red Cell Distribution Width 26.8 % (11.5-14.5); White Blood Count 10.2 K/mm3 (4.5-10.0)
[2022-07-02 11:08] LABS: Anisocytosis 1+ (NORMAL); Platelet Estimate Adequate (Adequate)
[2022-07-02 11:09] LABS: Acanthocytes 1+ (NORMAL); Macrocytosis 1+ (NORMAL); Schistocytes 1+ (NORMAL); Target Cells 1+ (NORMAL)
[2022-07-02 11:14] LABS: Poikilocytosis 1+ (NORMAL)
[2022-07-02 11:15] LABS: Hypochromasia 2+ (NORMAL)
[2022-07-02 12:18] LABS: Glucose Point of Care 168 mg/dl (65-105)
[2022-07-02 12:22] LABS: CRP 2.5 mg/dL (<1.0)
[2022-07-02 12:35] LABS: Procalcitonin 0.4 ng/mL
[2022-07-02 16:35] LABS: Glucose Point of Care 147 mg/dl (65-105)
[2022-07-02] MEDS: WATER FOR IRRIGATION, STERILE 1,000 ML BOTTLE 1000 ML (17:46)
[2022-07-02 20:23] LABS: Glucose Point of Care 146 mg/dl (65-105)
[2022-07-03] VITALS (25 sets, daily range): BP systolic 105–134; BP diastolic 42–76; PULSE 80–92; RESP 14–25; TEMP 36.1–37.2; O2SAT 91–100
[2022-07-03] MEDS: ALBUTEROL SULFATE NEB 2.5 MG/3 ML INH 5 MG INHALATION ×4 (02:30→20:34)
[2022-07-03] MEDS: IPRATROPIUM BR 0.02% INH SOLN 0.5 MG/2.5 ML VIAL INHALATION ×4 (02:30→20:34)
[2022-07-03 04:42] LABS: Basophils Percent Auto 0.3 % (0.2-1.2); Eosinophils Absolute Auto 0.1 K/mm3 (0-0.3); Hematocrit 26.1 % (37.0-47.0); Hemoglobin 7.7 g/dL (12.0-15.0); Immature Granulocyte Absolute 0.04 K/mm3 (0.00-0.031); Immature Granulocyte Percent A 0.4 % (0-0.5); Immature Platelet Fraction Pct 4.2 % (0.9-11.2); Lymphocytes Absolute Auto 1.08 K/mm3 (0.9-3.2); Lymphocytes Percent Auto 10.5 % (18.3-44.2); Mean Corpuscular HGB Conc 29.5 g/dl (32-36); Mean Corpuscular Hemoglobin 22.4 pg (26-34); Mean Corpuscular Volume 75.9 fl (80-100); Monocytes Absolute Auto 0.7 K/mm3 (0.1-0.6); Monocytes Percent Auto 6.6 % (2.6-8.5); Neutrophils Absolute Auto 8.3 K/mm3 (1.3-6.7); Neutrophils Percent Auto 81.2 % (45.5-73.1); Nucleated Red Blood Cells Absolute Auto 0.1 K/mm3 (0.0-0.012); Nucleated Red Blood Cells Perc 0.5 % (0.0-0.2); Platelet Count Result 219 k/mm3 (150-375); Red Blood Count 3.44 M/mm3 (4.2-5.4); Red Cell Distribution Width 27.6 % (11.5-14.5); White Blood Count 10.3 K/mm3 (4.5-10.0)
[2022-07-03 04:53] LABS: Platelet Estimate Adequate (Adequate)
[2022-07-03 04:55] LABS: Anisocytosis 2+ (NORMAL); Target Cells 1+ (NORMAL)
[2022-07-03 04:57] LABS: Schistocytes 1+ (NORMAL)
[2022-07-03 05:02] LABS: Alanine Aminotransferase 9 U/L (6-35); Albumin Level 3.4 g/dL (3.5-5.1); Alkaline Phosphatase 129 U/L (38-126); Anion Gap 19 mmol/L (8-16); Aspartate Amino Transferase 31 U/L (14-36); Bilirubin,Total 1.6 mg/dL (0.2-1.3); Blood Urea Nitrogen 65 mg/dL (7-17); Calcium 8.6 mg/dL (8.4-10.2); Carbon Dioxide 18 mmol/L (22-30); Chloride 102 mmol/L (98-107); Estimated CRCL calculation 33 ml/min; Estimated Glomerular Filt Rate 27; Glucose 131 mg/dL (65-110); Potassium 4.1 mmol/L (3.4-5.0); Sodium 139 mmol/L (137-145)
[2022-07-03 08:32] LABS: Glucose Point of Care 144 mg/dl (65-105)
[2022-07-03] MEDS: GABAPENTIN 100 MG CAPSULE PO ×3 (08:50→17:08)
[2022-07-03] MEDS: POLYSACCHARIDE IRON COMPLEX 150 MG CAPSULE PO ×2 (08:51→17:08)
[2022-07-03] MEDS: ATORVASTATIN 40 MG TABLET PO (08:51)
[2022-07-03] MEDS: EZETIMIBE 10 MG TABLET PO (08:51)
[2022-07-03] MEDS: PANTOPRAZOLE 40 MG TABLET PO ×2 (08:52→17:08)
[2022-07-03] MEDS: FUROSEMIDE INJ 40 MG/4 ML VIAL IV PUSH (08:52)
[2022-07-03] MEDS: UMECLIDINIUM/VILANTEROL 62.5-25 MCG ELLIPTA 1 PUFF INHALATION (09:41)
[2022-07-03 09:52] LABS: Alveolar/Arterial O2 Gradient 329.2 mmHg; Fractional Inspired Oxygen 60 %; HCO3 ABG 20.5 mEq/l (22.0-26.0); Oxygen Saturation ABG 91.1 % (95.0-100.0); PCO2 ABG 34.8 mmHg (35.0-45.0); PO2 ABG 60.3 mmHg (80.0-100.0); Total Hemoglobin 8.8 g/dL (12.0-18.0); pH ABG 7.387 (7.350-7.450)
[2022-07-03 09:54] LABS: Device HIGH FLOW NASAL CANN; Modified Allen's Test Pass; Site Drawn LEFT RADIAL
[2022-07-03] MEDS: TOLNAFTATE 1% POWDER 45 GM BTL 1 APPLIC TOPICAL ×2 (10:21→21:01)
[2022-07-03] MEDS: methylPREDNISolone SOD SUCC 125 MG VIAL 60 MG IV PUSH ×4 (10:21→23:34)
[2022-07-03 10:24] LABS: Lactic Acid Reflex 1.2 mmol/L (0.7-2.0)
[2022-07-03 10:27] LABS: CRP 2.6 mg/dL (<1.0)
[2022-07-03 10:45] LABS: Procalcitonin 0.4 ng/mL
[2022-07-03 10:49] LABS: D Dimer 3.04 ug/mL (<0.48)
--- NOTE | 2022-07-03 10:49 | PM.IMPN ---
Progress Note: A&P Assessment and Plan (1) Severe anemia: Code(s): D64.9 - Anemia, unspecified Status: Acute Assessment and Plan: Hemoglobin stable at 7.6, will transfuse 1 more unit and monitor if chest CT shows no fluid overload, report pending Likely 2/2 iron def and gastritis, check FOBT, consider GI consult 07/03: Fecal occult blood test still pending (2) Obstructive sleep apnea treated with BiPAP: Code(s): G47.33 - Obstructive sleep apnea (adult) (pediatric) Status: Acute Assessment and Plan: BiPAP with settings of 10/05 with 44% FiO2 have been ordered per patient's home regimen. Patient is tolerating BiPAP at this time. The importance of complying with BiPAP therapy was discussed with the patient in detail. (3) Acute and chronic respiratory failure: Code(s): J96.20 - Acute and chronic respiratory failure, unspecified whether with hypoxia or hypercapnia Status: Acute Assessment and Plan: The patient was on 8 L high-flow nasal cannula instead of her home nasal cannula of 6 L. She is maintaining oxygen saturations. BiPAP as discussed above. Will continue diuretic therapy and treat underlying pulmonary hypertension and CHF exacerbation. 07/02: Could be 2/2 PE, although less likely, d-dimer at baseline, VQ scan showed intermediate probability, hold off on a/c for now, FOBT pending 07/03: Patient up to 10 L high-flow nasal cannula today, states she actually feels a little better than yesterday, Lasix increased and Solu-Medrol started, continue to hold off on antibiotics, no signs of underlying infection, repeat chest x-ray today, follow-up CT chest report. ABG showed mild hypoxia without significant hypercapnia of uncertain etiology. (4) Pulmonary hypertension: Code(s): I27.20 - Pulmonary hypertension, unspecified Status: Acute Assessment and Plan: Patient had been transferred to tertiary care in the past for further evaluation right-sided heart failure with cor pulmonale with right to left shunt. Sounds as if the patient did not actually have any intervention at that time. Patient would benefit from being compliant with her BiPAP therapy. 07/03: Due to ABG showing minimal hypercapnia, will add CCB, norvasc 2.5 mg daily and assess response, some concern with this med group home due to LE edema, but her heart failure is minimal and suspect this coupled with her COPD are the driving factors in her resp failure (5) Acute exacerbation of congestive heart failure: Code(s): I50.9 - Heart failure, unspecified Status: Acute Assessment and Plan: Likely exacerbated by noncompliance with BiPAP therapy and severe anemia. Will continue Lasix 40 mg IV daily. Will monitor strict I&O's and daily weights. 07/02: Increased diuresis to Lasix 40 mg twice daily, monitor 07/03: Increased diuresis to Lasix 60 mg twice daily, monitor Is and Os and daily weights (6) Elevated d-dimer: Code(s): R79.89 - Other specified abnormal findings of blood chemistry Status: Acute Assessment and Plan: Patient has chronically elevated D-dimer. D-dimer is higher than in the past. Will check V/Q scan. 07/02: V/Q scan showed intermediate probability for PE 07/03: Do not suspect PE, D-dimers quite low, V/Q scan was inconclusive, unable to do CTA, unable to safely anticoagulate at this time (7) Chronic kidney disease, stage IV (severe): Code(s): N18.4 - Chronic kidney disease, stage 4 (severe) Status: Chronic Assessment and Plan: Patient does have increased creatinine from baseline by suspect patient likely has some component of cardiorenal syndrome. Creatinine may also be elevated due to relative hypotension. Will provide volume replacement with blood transfusion while attempting diuresis. 07/02: Creatinine down to 2.3 from 2.4, continue to monitor 07/03: Creatinine continues to improve, down to 2.2 today Plan DVT prop
[2022-07-03 12:34] LABS: Glucose Point of Care 165 mg/dl (65-105)
[2022-07-03] MEDS: amLODIPine BESYLATE 2.5 MG TABLET PO (13:30)
[2022-07-03 15:56] LABS: Alveolar/Arterial O2 Gradient 293.8 mmHg; Base Excess ABG -3.9 mEq/l (+/-2.0); Fractional Inspired Oxygen 55 %; HCO3 ABG 20.6 mEq/l (22.0-26.0); Oxygen Saturation ABG 90.8 % (95.0-100.0); PCO2 ABG 34.9 mmHg (35.0-45.0); PO2 ABG 59.5 mmHg (80.0-100.0); PO2 FiO2 Ratio Arterial Blood 1.08 %; Total Hemoglobin 8.9 g/dL (12.0-18.0); pH ABG 7.389 (7.350-7.450)
[2022-07-03 16:04] LABS: Device HIGH FLOW THERAPY; Modified Allen's Test Pass; Oxyhemoglobin 87.6 % THb (90.0-100.0); Site Drawn LEFT RADIAL
[2022-07-03 16:27] LABS: Glucose Point of Care 214 mg/dl (65-105)
[2022-07-03] MEDS: INSULIN ASPART (*BKC) 100 UNITS/ML SUB-Q (17:08)
[2022-07-03 17:38] LABS: Glucose Point of Care 225 mg/dl (65-105)
[2022-07-03 20:02] LABS: Glucose Point of Care 234 mg/dl (65-105)
[2022-07-03] MEDS: FUROSEMIDE INJ 40 MG/4 ML VIAL 60 MG IV PUSH (21:00)
[2022-07-04] VITALS (29 sets, daily range): BP systolic 83–99; BP diastolic 52–76; PULSE 73–90; RESP 8–22; TEMP 36.3–37; O2SAT 93–99
[2022-07-04] MEDS: IPRATROPIUM BR 0.02% INH SOLN 0.5 MG/2.5 ML VIAL INHALATION ×4 (03:07→21:33)
[2022-07-04] MEDS: ALBUTEROL SULFATE NEB 2.5 MG/3 ML INH 5 MG INHALATION ×4 (03:07→21:33)
[2022-07-04 04:46] LABS: Basophils Percent Auto 0.1 % (0.2-1.2); Hematocrit 25.4 % (37.0-47.0); Hemoglobin 7.6 g/dL (12.0-15.0); Immature Granulocyte Absolute 0.03 K/mm3 (0.00-0.031); Immature Granulocyte Percent A 0.4 % (0-0.5); Immature Platelet Fraction Pct 4.5 % (0.9-11.2); Lymphocytes Absolute Auto 0.53 K/mm3 (0.9-3.2); Lymphocytes Percent Auto 6.7 % (18.3-44.2); Mean Corpuscular HGB Conc 29.9 g/dl (32-36); Mean Corpuscular Hemoglobin 21.9 pg (26-34); Mean Corpuscular Volume 73.2 fl (80-100); Monocytes Absolute Auto 0.1 K/mm3 (0.1-0.6); Monocytes Percent Auto 0.6 % (2.6-8.5); Neutrophils Absolute Auto 7.3 K/mm3 (1.3-6.7); Neutrophils Percent Auto 92.2 % (45.5-73.1); Nucleated Red Blood Cells Perc 0.5 % (0.0-0.2); Platelet Count Result 217 k/mm3 (150-375); Red Blood Count 3.47 M/mm3 (4.2-5.4); Red Cell Distribution Width 27.4 % (11.5-14.5); White Blood Count 7.9 K/mm3 (4.5-10.0)
[2022-07-04 05:01] LABS: Alanine Aminotransferase 10 U/L (6-35); Albumin Level 3.5 g/dL (3.5-5.1); Alkaline Phosphatase 131 U/L (38-126); Anion Gap 12 mmol/L (8-16); Aspartate Amino Transferase 30 U/L (14-36); Bilirubin,Total 1.5 mg/dL (0.2-1.3); Blood Urea Nitrogen 67 mg/dL (7-17); Calcium 9.2 mg/dL (8.4-10.2); Carbon Dioxide 19 mmol/L (22-30); Chloride 103 mmol/L (98-107); Estimated CRCL calculation 33 ml/min; Estimated Glomerular Filt Rate 27; Glucose 219 mg/dL (65-110); Potassium 4.4 mmol/L (3.4-5.0); Sodium 134 mmol/L (137-145)
[2022-07-04] MEDS: methylPREDNISolone SOD SUCC 125 MG VIAL 60 MG IV PUSH ×3 (05:09→17:35)
[2022-07-04 05:11] LABS: Anisocytosis 2+ (NORMAL); Burr Cells 1+ (NORMAL); Hypochromasia 1+ (NORMAL); Ovalocytes 1+ (NORMAL); Platelet Estimate Adequate (Adequate); Schistocytes 1+ (NORMAL)
[2022-07-04] MEDS: UMECLIDINIUM/VILANTEROL 62.5-25 MCG ELLIPTA 1 PUFF INHALATION (08:40)
[2022-07-04 08:49] LABS: Glucose Point of Care 220 mg/dl (65-105)
[2022-07-04] MEDS: PANTOPRAZOLE 40 MG TABLET PO ×2 (09:44→17:35)
[2022-07-04] MEDS: INSULIN ASPART (*BKC) 100 UNITS/ML SUB-Q ×3 (09:44→17:35)
[2022-07-04] MEDS: ATORVASTATIN 40 MG TABLET PO (09:44)
[2022-07-04] MEDS: amLODIPine BESYLATE 2.5 MG TABLET PO (09:44)
[2022-07-04] MEDS: GABAPENTIN 100 MG CAPSULE PO ×3 (09:44→17:35)
[2022-07-04] MEDS: POLYSACCHARIDE IRON COMPLEX 150 MG CAPSULE PO ×2 (09:44→17:35)
[2022-07-04] MEDS: EZETIMIBE 10 MG TABLET PO (09:44)
[2022-07-04] MEDS: TOLNAFTATE 1% POWDER 45 GM BTL 1 APPLIC TOPICAL ×2 (09:50→20:53)
--- NOTE | 2022-07-04 10:10 | PM.IMPN ---
Progress Note: A&P Assessment and Plan (1) Severe anemia: Code(s): D64.9 - Anemia, unspecified Status: Acute Assessment and Plan: Hemoglobin stable at 7.6, will transfuse 1 more unit and monitor if chest CT shows no fluid overload, report pending Likely 2/2 iron def and gastritis, check FOBT, consider GI consult 07/03: Fecal occult blood test still pending 07/04: FOBT still pending, transfusing one unit today despite stable hgb, suspect patient needs to be closer to 8-9 due to severe pulm HTN (2) Obstructive sleep apnea treated with BiPAP: Code(s): G47.33 - Obstructive sleep apnea (adult) (pediatric) Status: Acute Assessment and Plan: BiPAP with settings of 12/7 with 44% FiO2 have been ordered per patient's home regimen. Patient is tolerating BiPAP at this time. The importance of complying with BiPAP therapy was discussed with the patient in detail. (3) Acute and chronic respiratory failure: Code(s): J96.20 - Acute and chronic respiratory failure, unspecified whether with hypoxia or hypercapnia Status: Acute Assessment and Plan: The patient was on 8 L high-flow nasal cannula instead of her home nasal cannula of 6 L. She is maintaining oxygen saturations. BiPAP as discussed above. Will continue diuretic therapy and treat underlying pulmonary hypertension and CHF exacerbation. 07/02: Could be 2/2 PE, although less likely, d-dimer at baseline, VQ scan showed intermediate probability, hold off on a/c for now, FOBT pending 07/03: Patient up to 10 L high-flow nasal cannula today, states she actually feels a little better than yesterday, Lasix increased and Solu-Medrol started, continue to hold off on antibiotics, no signs of underlying infection, repeat chest x-ray today, follow-up CT chest report. ABG showed mild hypoxia without significant hypercapnia of uncertain etiology. 07/04: Up to 36L/55% FiO2 today, will attempt to wean, continue norvasc for pulm HTN, lasix held d/t low BP, will attempt to give after transfusion today (4) Pulmonary hypertension: Code(s): I27.20 - Pulmonary hypertension, unspecified Status: Acute Assessment and Plan: Patient had been transferred to tertiary care in the past for further evaluation right-sided heart failure with cor pulmonale with right to left shunt. Sounds as if the patient did not actually have any intervention at that time. Patient would benefit from being compliant with her BiPAP therapy. 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 Will continue Lasix 40 mg IV daily. Will monitor strict I&O's and daily weights. 07/02: Increased diuresis to Lasix 40 mg twice daily, monitor 07/03: Increased diuresis to Lasix 60 mg twice daily, monitor Is and Os and daily weights 07/04: Lasix held due to low BP, will attempt to give after transfusion today (6) Elevated d-dimer: Code(s): R79.89 - Other specified abnormal findings of blood chemistry Status: Acute Assessment and Plan: Patient has chronically elevated D-dimer. D-dimer is higher than in the past. Will check V/Q scan. 07/02: V/Q scan showed intermediate probability for PE 07/03: Do not suspect PE, D-dimers quite low, V/Q scan was inconclusive, unable to do CTA, unable to safely anticoagulate at this time (7) Chronic kidney disease, stage IV (severe): Code(s): N18.4 - Chroni
[2022-07-04 10:31] LABS: Hematocrit 26.5 % (37.0-47.0); Hemoglobin 7.8 g/dL (12.0-15.0); Immature Platelet Fraction Pct 4.6 % (0.9-11.2); Mean Corpuscular HGB Conc 29.4 g/dl (32-36); Mean Corpuscular Hemoglobin 21.7 pg (26-34); Mean Corpuscular Volume 73.6 fl (80-100); Platelet Count Result 218 k/mm3 (150-375); Red Cell Distribution Width 27.1 % (11.5-14.5); White Blood Count 7.5 K/mm3 (4.5-10.0)
[2022-07-04 11:43] LABS: Glucose Point of Care 236 mg/dl (65-105)
[2022-07-04 12:42] LABS: IFOB Positive Control Positive; Immunochemical Fecal Occult Bl Negative (N)
[2022-07-04] MEDS: SODIUM CHLORIDE 0.9% IV 250 ML 30 ML IV CONT (15:08)
--- NOTE | 2022-07-04 16:56 | PM.CNPUL ---
Assessment and Plan Assessment and plan (1) Acute exacerbation of congestive heart failure: Code(s): I50.9 - Heart failure, unspecified Status: Acute Assessment and Plan: This is the main cause for her deterioration. She stopped diuretics, and is more volume overloaded. (2) Chronic obstructive pulmonary disease: Code(s): J44.9 - Chronic obstructive pulmonary disease, unspecified Status: Acute Assessment and Plan: (3) Anemia: Code(s): D64.9 - Anemia, unspecified Status: Acute Assessment and Plan: transfused., History of Present Illness History of Present Illness Consult date: 08/08/22 Requesting physician: Josephine Ferrer DO Chief complaint: respiratory failure, anemia, CHF Narrative: NEW: Maura Hill is a 62 year-old female we follow in pulmonary clinic; she was admitted June 30 with increased lower extremity swelling and worsening shortness of breath. She said that her primary care doctor told her to stop Lasix and Losartan, that she did not need these any longer. She was off these for a few weeks, and had a huge weight gain about 20 kg, now 124.8 kg. She responded to Lasix IV and O2. CXR showed cardiomegaly without infiltrate. She has anemia H&H is 7.8 and 25.6%. She has chronic kidney failure BUN and creatinine her stable, 67 and 2.2. She was transfused a unit of blood on admission. She last admission here was May 03 the with COVID. She did not keep her pulmonary office visit on June 29 because she was too sick. PMH: Ex-smoker stopped in 2018, COPD, chronic resp failure on O2 4 L/min at rest, 5 L/min with exertion, pulmonary hypertension complicated by a PFO, untreated GUANACO; CHF, chronic kidney disease with anemia, baseline BUN and creatinine 20-40 and creat 2.0. Review of Systems Review of Systems: Increased leg swelling and shortness of breath. No chest pain. She has not been using her BiPAP at home regularly. She was using O2, however says that it was not as beneficial as the O2 at the hospital is. All systems reviewed & are unremarkable except as noted in HPI and below PMFSH Past Medical History Medical History Adrenal mass Chronic cor pulmonale Chronic kidney disease, stage IV (severe) Chronic obstructive pulmonary disease Chronic respiratory failure with hypoxia, on home O2 therapy CKD (chronic kidney disease) Congestive heart failure Echocardiogram 04/2022: Left ventricular systolic function 65-70, mildly increased left ventricular wall thickness, grade 1 diastolic dysfunction, E/E 12 is mildly elevated, right ventricular is mildly enlarged, mild left atrial enlargement, right atrial enlargement severe, mild aortic valve sclerosis, moderate tricuspid valve regurgitation, severe pulmonary hypertension with RVSP of 84, dilated inferior vena cava with less than 50% collapse consistent with elevated right atrial pressures 15, trivial pericardial effusion Diabetes mellitus Erosive gastritis Hyperlipidemia Hypertension Lung nodule 11 mm Obstructive sleep apnea treated with BiPAP Severe pulmonary hypertension With right to left shunt the patient was transferred to [facility] in November for possible right heart catheterization which she reports she did not get and her PFO remains open. RVSP 84 echocardiogram 04/2022 Tobacco abuse 35 pack year, quit Aug 2019. Surgical History Surgical History History of 3 sections History of appendectomy History of cholecystectomy History of colonoscopy with polypectomy History of esophagogastroduodenoscopy (09/2021) Family History Family History
[2022-07-04 17:21] LABS: Glucose Point of Care 226 mg/dl (65-105)
[2022-07-04 20:24] LABS: Glucose Point of Care 230 mg/dl (65-105)
[2022-07-04] MEDS: FUROSEMIDE INJ 40 MG/4 ML VIAL 60 MG IV PUSH (20:52)
--- NOTE | 2022-07-04 22:43 | PC.NURSE ---
I ASSESSED AND AGREE WITH THE CHARTING AND MEDICATION DISTRIBUTION OF PATIENT, DONE BY CASSIDY MORAN RN-LICENSE PENDING.
[2022-07-05] VITALS (27 sets, daily range): BP systolic 85–98; BP diastolic 56–70; PULSE 77–96; RESP 16–24; TEMP 36.3–36.6; O2SAT 93–98
[2022-07-05] MEDS: methylPREDNISolone SOD SUCC 125 MG VIAL 60 MG IV PUSH ×2 (00:41→06:11)
--- NOTE | 2022-07-05 00:55 | PC.NURSE ---
I HAVE ASSESSED THE CHARTING AND MEDICATION DISTRIBUTION OF THE PATIENT AND AGREE WITH THE ASSESSMENT DONE BY CASSIDY MORAN RN-LICENSE PENDING.
[2022-07-05] MEDS: IPRATROPIUM BR 0.02% INH SOLN 0.5 MG/2.5 ML VIAL INHALATION ×4 (02:57→20:42)
[2022-07-05] MEDS: ALBUTEROL SULFATE NEB 2.5 MG/3 ML INH 5 MG INHALATION ×4 (02:57→20:42)
--- NOTE | 2022-07-05 04:43 | PC.NURSE ---
I HAVE ASSESSED THE CHARTING AND MEDICATION DISPENSING AND I AGREE WITH THE CHARTING DONE BY CASSIDY MORAN RN-LICENSE PENDING.
[2022-07-05 05:04] LABS: Basophils Percent Auto 0.1 % (0.2-1.2); Hematocrit 29.8 % (37.0-47.0); Immature Granulocyte Absolute 0.05 K/mm3 (0.00-0.031); Immature Granulocyte Percent A 0.5 % (0-0.5); Lymphocytes Absolute Auto 0.38 K/mm3 (0.9-3.2); Lymphocytes Percent Auto 3.9 % (18.3-44.2); Mean Corpuscular HGB Conc 30.2 g/dl (32-36); Mean Corpuscular Hemoglobin 22.8 pg (26-34); Mean Corpuscular Volume 75.6 fl (80-100); Monocytes Absolute Auto 0.2 K/mm3 (0.1-0.6); Monocytes Percent Auto 1.9 % (2.6-8.5); Neutrophils Percent Auto 93.6 % (45.5-73.1); Nucleated Red Blood Cells Perc 0.4 % (0.0-0.2); Platelet Count Result 215 k/mm3 (150-375); Red Blood Count 3.94 M/mm3 (4.2-5.4); Red Cell Distribution Width 27.1 % (11.5-14.5); White Blood Count 9.7 K/mm3 (4.5-10.0)
[2022-07-05 05:19] LABS: Alanine Aminotransferase 11 U/L (6-35); Albumin Level 3.6 g/dL (3.5-5.1); Alkaline Phosphatase 139 U/L (38-126); Anion Gap 12 mmol/L (8-16); Aspartate Amino Transferase 33 U/L (14-36); Bilirubin,Total 1.6 mg/dL (0.2-1.3); Blood Urea Nitrogen 73 mg/dL (7-17); Calcium 9.4 mg/dL (8.4-10.2); Carbon Dioxide 19 mmol/L (22-30); Chloride 103 mmol/L (98-107); Estimated CRCL calculation 30 ml/min; Estimated Glomerular Filt Rate 25; Glucose 206 mg/dL (65-110); Potassium 4.7 mmol/L (3.4-5.0); Sodium 134 mmol/L (137-145)
[2022-07-05 05:41] LABS: Acanthocytes 1+ (NORMAL); Anisocytosis 2+ (NORMAL); Ovalocytes 1+ (NORMAL); Platelet Estimate Adequate (Adequate); Poikilocytosis 2+ (NORMAL); Target Cells 1+ (NORMAL)
[2022-07-05 05:42] LABS: Crenated RBC 1+ (NORMAL); Hypochromasia 1+ (NORMAL)
--- NOTE | 2022-07-05 08:06 | PM.IMPN ---
Progress Note: A&P Assessment and Plan (1) Severe anemia: Code(s): D64.9 - Anemia, unspecified Status: Acute Assessment and Plan: Hemoglobin stable at 7.6, will transfuse 1 more unit and monitor if chest CT shows no fluid overload, report pending Likely 2/2 iron def and gastritis, check FOBT, consider GI consult 07/03: Fecal occult blood test still pending 07/04: FOBT still pending, transfusing one unit today despite stable hgb, suspect patient needs to be closer to 8-9 due to severe pulm HTN 07/05: Hgb improved to 9, able to be weaned down to 8L nc, suspect increased hgb assisted this process. FOBT negative. (2) Obstructive sleep apnea treated with BiPAP: Code(s): G47.33 - Obstructive sleep apnea (adult) (pediatric) Status: Acute Assessment and Plan: BiPAP with settings of 12/7 with 44% FiO2 have been ordered per patient's home regimen. Patient is tolerating BiPAP at this time. The importance of complying with BiPAP therapy was discussed with the patient in detail. (3) Acute and chronic respiratory failure: Code(s): J96.20 - Acute and chronic respiratory failure, unspecified whether with hypoxia or hypercapnia Status: Acute Assessment and Plan: The patient was on 8 L high-flow nasal cannula instead of her home nasal cannula of 6 L. She is maintaining oxygen saturations. BiPAP as discussed above. Will continue diuretic therapy and treat underlying pulmonary hypertension and CHF exacerbation. 07/02: Could be 2/2 PE, although less likely, d-dimer at baseline, VQ scan showed intermediate probability, hold off on a/c for now, FOBT pending 07/03: Patient up to 10 L high-flow nasal cannula today, states she actually feels a little better than yesterday, Lasix increased and Solu-Medrol started, continue to hold off on antibiotics, no signs of underlying infection, repeat chest x-ray today, follow-up CT chest report. ABG showed mild hypoxia without significant hypercapnia of uncertain etiology. 07/04: Up to 36L/55% FiO2 today, will attempt to wean, continue norvasc for pulm HTN, lasix held d/t low BP, will attempt to give after transfusion today 07/05: Down to 8L nc today after transfusion and adding norvasc (4) Pulmonary hypertension: Code(s): I27.20 - Pulmonary hypertension, unspecified Status: Acute Assessment and Plan: Patient had been transferred to tertiary care in the past for further evaluation right-sided heart failure with cor pulmonale with right to left shunt. Sounds as if the patient did not actually have any intervention at that time. Patient would benefit from being compliant with her BiPAP therapy. 07/03: Due to ABG showing minimal hypercapnia, will add CCB, norvasc 2.5 mg daily and assess response, some concern with this med long-term due to LE edema, but her heart failure is minimal and suspect this coupled with her COPD are the driving factors in her resp failure 07/04: Suspect pulm HTN driving patient's resp failure as opposed to COPD, continue norvasc and O2 therapy, pulm c/s pending (5) Acute exacerbation of congestive heart failure: Code(s): I50.9 - Heart failure, unspecified Status: Acute Assessment and Plan: Likely exacerbated by noncompliance with BiPAP therapy and severe anemia. Will continue Lasix 40 mg IV daily. Will monitor strict I&O's and daily weights. 07/02: Increased diuresis to Lasix 40 mg twice daily, monitor 07/03: Increased diuresis to Lasix 60 mg twice daily, monitor Is and Os and daily weights 07/04: Lasix held due to low BP, will attempt to give after transfusion today 07/05: BP somewhat soft with lasix + norvasc 2.5 mg, will discontinue IV Lasix and transition back to oral diuresis (6) Elevated d-dimer: Code(s): R79.89 - Other specified abnormal findings of blood chemistry Status: Acute Assessment and Plan: Patient has chronically elevated D-dimer. D-dimer is higher than in the
[2022-07-05 08:33] LABS: Glucose Point of Care 214 mg/dl (65-105)
[2022-07-05] MEDS: UMECLIDINIUM/VILANTEROL 62.5-25 MCG ELLIPTA 1 PUFF INHALATION (08:37)
[2022-07-05] MEDS: EZETIMIBE 10 MG TABLET PO (09:10)
[2022-07-05] MEDS: POLYSACCHARIDE IRON COMPLEX 150 MG CAPSULE PO ×2 (09:10→17:28)
[2022-07-05] MEDS: GABAPENTIN 100 MG CAPSULE PO ×3 (09:10→17:28)
[2022-07-05] MEDS: ATORVASTATIN 40 MG TABLET PO (09:10)
[2022-07-05] MEDS: PANTOPRAZOLE 40 MG TABLET PO ×2 (09:10→17:28)
[2022-07-05] MEDS: INSULIN ASPART (*BKC) 100 UNITS/ML SUB-Q ×3 (09:10→17:28)
[2022-07-05] MEDS: amLODIPine BESYLATE 2.5 MG TABLET PO (09:10)
[2022-07-05] MEDS: FUROSEMIDE INJ 40 MG/4 ML VIAL IV PUSH (09:10)
[2022-07-05] MEDS: TOLNAFTATE 1% POWDER 45 GM BTL 1 APPLIC TOPICAL ×2 (09:11→20:46)
--- NOTE | 2022-07-05 10:21 | PM.PNPUL ---
Progress Note: A&P Assessment and Plan (1) Obstructive sleep apnea treated with BiPAP: Code(s): G47.33 - Obstructive sleep apnea (adult) (pediatric) Status: Acute (2) Acute and chronic respiratory failure: Code(s): J96.20 - Acute and chronic respiratory failure, unspecified whether with hypoxia or hypercapnia Status: Acute (3) Pulmonary hypertension: Code(s): I27.20 - Pulmonary hypertension, unspecified Status: Acute Assessment and Plan: 62-year-old female with a history of severe pulmonary hypertension, chronic hypoxemic respiratory failure on supplemental oxygen at home, history of obstructive sleep apnea and non compliance with BiPAP support presented with increasing shortness of breath and worsening lower extremity edema. On chest CT there is evidence of mild emphysema but no new infiltrates. she had hypoxemia on blood gases, no hypercapnia elevated BNP and also elevated bilirubin which along with the lower extremity edema suggest worsening cor pulmonale. The patient seems to be responding to current treatment with BiPAP support and diuresis. she is still on high supplemental oxygen with O2 saturation around 96%. Patient's pulmonary hypertension is most likely related to untreated obstructive sleep apnea with possible contribution from left ventricular diastolic dysfunction. On chest CT she has mild emphysema and on last pulmonary function testing she had severe restrictive respiratory disease, no evidence of obstructive airway disease, and severely reduced lung diffusion capacity consistent with severe pulmonary hypertension. She had no evidence of interstitial lung disease. Serology screening was negative for underlying connective tissue disease. Plan: I would continue with BiPAP support at night and also during the day given the patient's wheezing on physical exam. Continue with gentle diuresis while monitoring blood pressure. Patient is not on DVT prophylaxis presumably due to possible GI blood loss. I have discontinued the IV steroids. (4) Chronic anemia: Code(s): D64.9 - Anemia, unspecified Status: Acute (5) Chronic obstructive pulmonary disease: Code(s): J44.9 - Chronic obstructive pulmonary disease, unspecified Status: Acute Subjective Date/time seen: 07/05/22 10:21 patient without any new respiratory symptoms. She feels little better. She is on BiPAP support at night a 12/7 and 40% FiO2. She has been on IV Lasix for congestive heart failure. She continues to have shortness of breath. Review of Systems Review of Systems: 12 point review of systems was assessed and was negative except as noted in the HPI Exam Narrative: GENERAL APPEARANCE: Well developed, well nourished, alert and cooperative, and appears to be in mild respiratory distress while on supplemental oxygen SKIN: Inspection of the skin reveals no rashes, ulcerations or petechiae. HEENT: Sclerae anicteric and conjunctivae pink and moist. Extraocular movements were intact and pupils were equal, round, and reactive to light. The oral mucosa, hard and soft palate, tongue and posterior pharynx were normal. NECK: Supple. JVD present. There was no thyroid enlargement, and no tenderness, or masses were felt. CHEST: Normal AP diameter and normal contour without any kyphoscoliosis. LUNGS: Auscultation of the lungs revealed wheezing bilaterally CARDIAC: There was a regular rate and rhythm loud 2nd heart sound. ABDOMEN: Soft and nontender with normal bowel sounds. There was no organomegaly. LYMPH NODES: No lymphadenopathy was appreciated in the neck. EXTREMITIES: 1+ lower extremity edema. NEUROLOGIC: Alert and oriented x 3. Normal affect. Objective Data Vital Signs Vital Signs: Vital Signs - 24 hr 07/04/22 11:50 07/04/22 12:00 07/04/22 12:00 Temperature 37.0 C Pulse Rate 76 83 Respiratory Rate 16 Blood Pressure 95/76 L Pulse Oximetry 97 95 Oxygen Delivery High Flow Thera
[2022-07-05 12:09] LABS: Glucose Point of Care 208 mg/dl (65-105)
[2022-07-05 16:41] LABS: Glucose Point of Care 236 mg/dl (65-105)
[2022-07-05 19:48] LABS: Glucose Point of Care 231 mg/dl (65-105)
[2022-07-06] VITALS (27 sets, daily range): BP systolic 86–100; BP diastolic 53–66; PULSE 86–99; RESP 18–23; TEMP 35.9–36.8; O2SAT 91–97
[2022-07-06] MEDS: ALBUTEROL SULFATE NEB 2.5 MG/3 ML INH 5 MG INHALATION ×4 (01:43→20:37)
[2022-07-06] MEDS: IPRATROPIUM BR 0.02% INH SOLN 0.5 MG/2.5 ML VIAL INHALATION ×4 (01:44→20:37)
[2022-07-06 04:48] LABS: Basophils Percent Auto 0.1 % (0.2-1.2); Hematocrit 28.8 % (37.0-47.0); Hemoglobin 8.8 g/dL (12.0-15.0); Immature Granulocyte Absolute 0.06 K/mm3 (0.00-0.031); Immature Granulocyte Percent A 0.6 % (0-0.5); Immature Platelet Fraction Pct 4.7 % (0.9-11.2); Lymphocytes Absolute Auto 0.28 K/mm3 (0.9-3.2); Lymphocytes Percent Auto 2.6 % (18.3-44.2); Mean Corpuscular HGB Conc 30.6 g/dl (32-36); Mean Corpuscular Hemoglobin 22.8 pg (26-34); Mean Corpuscular Volume 74.6 fl (80-100); Monocytes Absolute Auto 0.6 K/mm3 (0.1-0.6); Monocytes Percent Auto 5.2 % (2.6-8.5); Neutrophils Absolute Auto 9.9 K/mm3 (1.3-6.7); Neutrophils Percent Auto 91.5 % (45.5-73.1); Nucleated Red Blood Cells Absolute Auto 0.1 K/mm3 (0.0-0.012); Nucleated Red Blood Cells Perc 0.6 % (0.0-0.2); Platelet Count Result 212 k/mm3 (150-375); Red Blood Count 3.86 M/mm3 (4.2-5.4); Red Cell Distribution Width 27.4 % (11.5-14.5); White Blood Count 10.8 K/mm3 (4.5-10.0)
[2022-07-06 04:59] LABS: Alanine Aminotransferase 11 U/L (6-35); Albumin Level 3.6 g/dL (3.5-5.1); Alkaline Phosphatase 141 U/L (38-126); Anion Gap 11 mmol/L (8-16); Aspartate Amino Transferase 34 U/L (14-36); Bilirubin,Total 1.3 mg/dL (0.2-1.3); Blood Urea Nitrogen 84 mg/dL (7-17); Calcium 9.4 mg/dL (8.4-10.2); Carbon Dioxide 20 mmol/L (22-30); Chloride 102 mmol/L (98-107); Estimated CRCL calculation 28 ml/min; Estimated Glomerular Filt Rate 22; Glucose 193 mg/dL (65-110); Potassium 4.7 mmol/L (3.4-5.0); Sodium 133 mmol/L (137-145)
[2022-07-06 06:11] LABS: Platelet Estimate Adequate (Adequate)
[2022-07-06 06:12] LABS: Anisocytosis 2+ (NORMAL); Hypochromasia 2+ (NORMAL)
[2022-07-06 06:13] LABS: Macrocytosis 1+ (NORMAL); Microcytosis 1+ (NORMAL); Target Cells 1+ (NORMAL)
[2022-07-06 08:13] LABS: Glucose Point of Care 183 mg/dl (65-105)
[2022-07-06] MEDS: UMECLIDINIUM/VILANTEROL 62.5-25 MCG ELLIPTA 1 PUFF INHALATION (09:01)
[2022-07-06] MEDS: EZETIMIBE 10 MG TABLET PO (09:05)
[2022-07-06] MEDS: POLYSACCHARIDE IRON COMPLEX 150 MG CAPSULE PO ×2 (09:05→17:03)
[2022-07-06] MEDS: PANTOPRAZOLE 40 MG TABLET PO ×2 (09:05→17:03)
[2022-07-06] MEDS: GABAPENTIN 100 MG CAPSULE PO ×3 (09:05→17:03)
[2022-07-06] MEDS: ATORVASTATIN 40 MG TABLET PO (09:05)
[2022-07-06] MEDS: TOLNAFTATE 1% POWDER 45 GM BTL 1 APPLIC TOPICAL ×2 (09:07→20:24)
--- NOTE | 2022-07-06 09:11 | PM.IMPN ---
Progress Note: A&P Assessment and Plan (1) Severe anemia: Code(s): D64.9 - Anemia, unspecified Status: Acute (2) Obstructive sleep apnea treated with BiPAP: Code(s): G47.33 - Obstructive sleep apnea (adult) (pediatric) Status: Acute (3) Acute and chronic respiratory failure: Code(s): J96.20 - Acute and chronic respiratory failure, unspecified whether with hypoxia or hypercapnia Status: Acute (4) Pulmonary hypertension: Code(s): I27.20 - Pulmonary hypertension, unspecified Status: Acute (5) Acute exacerbation of congestive heart failure: Code(s): I50.9 - Heart failure, unspecified Status: Acute (6) Elevated d-dimer: Code(s): R79.89 - Other specified abnormal findings of blood chemistry Status: Acute (7) Chronic kidney disease, stage IV (severe): Code(s): N18.4 - Chronic kidney disease, stage 4 (severe) Status: Chronic Plan 07/06/22 pt on 8L NC BP 86/66 w MAP of 75 still requiring diuresis but BP not able to tolerate consult cardio hold lasix hold bp meds lozenges for dry mouth Subjective Date/time seen: 07/06/22 09:11 pt feeling better, reports that she has a very hard time at home. She is able to stand long enough to cook and sometimes is to weak to raise herself from the toilet seat. pt advised that we hope to improve this if possible, will benefit from home health care also complains of dry mouth on fluid restriction, agrees to try lozenges Review of Systems Review of Systems: dry mouth fatigue Exam Narrative: General: No acute distress, alert and oriented per baseline, breathing comfortably on 9L nasal cannula (home is 6L) HEENT: Atraumatic, normocephalic, mucous membranes moist CV: Regular rate and rhythm, S1, S2 Lungs: Diminished breath sounds throughout, no wheezes, rhonchi some rales noted at base Abdomen: Soft, nontender, nondistended Extremities: Normal to inspection, bilateral 1+ pitting edema Skin: No rashes noted, no lesions or wounds seen Objective Data Vital Signs Vital Signs: Vital Signs - 24 hr 07/05/22 10:00 07/05/22 12:24 07/05/22 12:00 Temperature 97.9 F Pulse Rate 90 90 91 Respiratory Rate 22 H Blood Pressure 97/59 L Pulse Oximetry 95 Oxygen Delivery Oxygen Flow Rate Fraction of Inspired Oxygen 07/05/22 12:00 07/05/22 14:10 07/05/22 14:45 Temperature Pulse Rate Respiratory Rate Blood Pressure Pulse Oximetry 95 94 Oxygen Delivery High Flow Nasal Cannula High Flow Therapy with Na High Flow Nasal Cannula Oxygen Flow Rate 8 9 8 Fraction of Inspired Oxygen 07/05/22 14:45 07/05/22 14:00 07/05/22 15:06 Temperature Pulse Rate 91 93 96 Respiratory Rate 20 20 Blood Pressure Pulse Oximetry Oxygen Delivery Oxygen Flow Rate Fraction of Inspired Oxygen 07/05/22 16:00 07/05/22 16:43 07/05/22 16:00 Temperature 97.6 F Pulse Rate 94 94 Respiratory Rate 22 H Blood Pressure 85/56 L Pulse Oximetry 95 97 Oxygen Delivery High Flow Nasal Cannula Oxygen Flow Rate 8 Fraction of Inspired Oxygen 07/05/22 18:00 07/05/22 20:00 07/05/22 20:46 Temperature 97.9 F Pulse Rate 93 92 91 Respiratory Rate 20 18 Blood Pressure 92/70 L Pulse Oximetry 96 Oxygen Delivery Oxygen Flow Rate Fraction of Inspired Oxygen 07/05/22 20:48 07/05/22 20:58 07/05/22 20:58 Temperature Pulse Rate 92 92 Respiratory Rate 16 20 Blood Pressure Pulse Oximetry 95 96 Oxygen Delivery High Flow Nasal Cannula BiPAP Oxygen Flow Rate 8 Fraction of Inspired Oxygen 07/05/22 20:00 07/05/22 20:00 07/05/22 22:00 Temperature Pulse Rate 92 92 92 Respiratory Rate 20 Blood Pressure Pulse Oximetry 96 Oxygen Delivery High Flow Nasal Cannula Oxygen Flow Rate 8 Fraction of Inspired Oxygen 40 07/05/22 23:02 07/06/22 00:00 07/06/22 00:00 Temperature 97.9 F Pulse Rate 96 90 90 R
--- NOTE | 2022-07-06 10:07 | PM.PNPUL ---
Progress Note: A&P Assessment and Plan (1) Obstructive sleep apnea treated with BiPAP: Code(s): G47.33 - Obstructive sleep apnea (adult) (pediatric) Status: Acute (2) Acute and chronic respiratory failure: Code(s): J96.20 - Acute and chronic respiratory failure, unspecified whether with hypoxia or hypercapnia Status: Acute (3) Pulmonary hypertension: Code(s): I27.20 - Pulmonary hypertension, unspecified Status: Acute Assessment and Plan: 62-year-old female with a history of severe pulmonary hypertension, chronic hypoxemic respiratory failure on supplemental oxygen at home, history of obstructive sleep apnea and non compliance with BiPAP support presented with increasing shortness of breath and worsening lower extremity edema. On chest CT there is evidence of mild emphysema but no new infiltrates. she had hypoxemia on blood gases, no hypercapnia elevated BNP and also elevated bilirubin which along with the lower extremity edema suggest worsening cor pulmonale. she is still on high supplemental oxygen with O2 saturation around 96%. Patient's pulmonary hypertension is most likely related to untreated obstructive sleep apnea with possible contribution from left ventricular diastolic dysfunction. On chest CT she has mild emphysema and on last pulmonary function testing she had severe restrictive respiratory disease, no evidence of obstructive airway disease, and severely reduced lung diffusion capacity consistent with severe pulmonary hypertension. She had no evidence of interstitial lung disease. Serology screening was negative for underlying connective tissue disease. Plan: I would continue with BiPAP support at night and also during the day. The patient seems to be responding to current treatment with BiPAP support and supplemental O2. Because of borderline blood pressure diuretics are on hold. (4) Chronic anemia: Code(s): D64.9 - Anemia, unspecified Status: Acute (5) Chronic obstructive pulmonary disease: Code(s): J44.9 - Chronic obstructive pulmonary disease, unspecified Status: Acute Subjective Date/time seen: 07/06/22 10:07 patient has no new respiratory symptoms. Stated she feels better today. Used BiPAP support last night. Pedal edema also less today. Blood pressure remains borderline. Diuretics and blood pressure medications on hold. Review of Systems Review of Systems: 12 point review of systems was assessed and was negative except as noted in the HPI Exam Narrative: GENERAL APPEARANCE: Well developed, well nourished, alert and cooperative, and appears to be in mild respiratory distress while on supplemental oxygen SKIN: Inspection of the skin reveals no rashes, ulcerations or petechiae. HEENT: Sclerae anicteric and conjunctivae pink and moist. Extraocular movements were intact and pupils were equal, round, and reactive to light. The oral mucosa, hard and soft palate, tongue and posterior pharynx were normal. NECK: Supple. JVD present. There was no thyroid enlargement, and no tenderness, or masses were felt. CHEST: Normal AP diameter and normal contour without any kyphoscoliosis. LUNGS: Auscultation of the lungs revealed wheezing bilaterally CARDIAC: There was a regular rate and rhythm loud 2nd heart sound. ABDOMEN: Soft and nontender with normal bowel sounds. There was no organomegaly. LYMPH NODES: No lymphadenopathy was appreciated in the neck. EXTREMITIES: 1+ lower extremity edema. NEUROLOGIC: Alert and oriented x 3. Normal affect. Objective Data Vital Signs Vital Signs: Vital Signs - 24 hr 07/05/22 12:24 07/05/22 12:00 07/05/22 12:00 Temperature 36.6 C Pulse Rate 90 91 Respiratory Rate 22 H Blood Pressure 97/59 L Pulse Oximetry 95 95 Oxygen Delivery High Flow Nasal Cannula Oxygen Flow Rate 8 Fraction of Inspired Oxygen 07/05/22 14:10 07/05/22 14:45 07/05/22 14:45 Temperature Pulse Rate 91 Respir
[2022-07-06 12:28] LABS: Glucose Point of Care 181 mg/dl (65-105)
[2022-07-06 16:33] LABS: Glucose Point of Care 191 mg/dl (65-105)
[2022-07-06 20:04] LABS: Glucose Point of Care 196 mg/dl (65-105)
[2022-07-07] VITALS (21 sets, daily range): BP systolic 78–101; BP diastolic 60–66; PULSE 85–99; RESP 18–27; TEMP 36.2–36.7; O2SAT 91–98
[2022-07-07] MEDS: IPRATROPIUM BR 0.02% INH SOLN 0.5 MG/2.5 ML VIAL INHALATION ×3 (03:09→14:50)
[2022-07-07] MEDS: ALBUTEROL SULFATE NEB 2.5 MG/3 ML INH 5 MG INHALATION ×3 (03:09→14:50)
[2022-07-07 04:52] LABS: Basophils Percent Auto 0.1 % (0.2-1.2); Eosinophils Percent Auto 0.2 % (0-4.4); Hematocrit 30.1 % (37.0-47.0); Immature Granulocyte Absolute 0.05 K/mm3 (0.00-0.031); Immature Granulocyte Percent A 0.5 % (0-0.5); Immature Platelet Fraction Pct 4.8 % (0.9-11.2); Lymphocytes Absolute Auto 0.82 K/mm3 (0.9-3.2); Lymphocytes Percent Auto 8.1 % (18.3-44.2); Mean Corpuscular HGB Conc 29.9 g/dl (32-36); Mean Corpuscular Hemoglobin 22.3 pg (26-34); Mean Corpuscular Volume 74.7 fl (80-100); Monocytes Absolute Auto 0.9 K/mm3 (0.1-0.6); Monocytes Percent Auto 8.4 % (2.6-8.5); Neutrophils Absolute Auto 8.4 K/mm3 (1.3-6.7); Neutrophils Percent Auto 82.7 % (45.5-73.1); Nucleated Red Blood Cells Absolute Auto 0.1 K/mm3 (0.0-0.012); Nucleated Red Blood Cells Perc 0.5 % (0.0-0.2); Platelet Count Result 213 k/mm3 (150-375); Red Blood Count 4.03 M/mm3 (4.2-5.4); Red Cell Distribution Width 27.5 % (11.5-14.5); White Blood Count 10.1 K/mm3 (4.5-10.0)
[2022-07-07 05:18] LABS: Alanine Aminotransferase 12 U/L (6-35); Albumin Level 3.8 g/dL (3.5-5.1); Alkaline Phosphatase 135 U/L (38-126); Anion Gap 16 mmol/L (8-16); Aspartate Amino Transferase 39 U/L (14-36); Bilirubin,Total 1.4 mg/dL (0.2-1.3); Blood Urea Nitrogen 87 mg/dL (7-17); Calcium 8.9 mg/dL (8.4-10.2); Carbon Dioxide 19 mmol/L (22-30); Chloride 99 mmol/L (98-107); Estimated CRCL calculation 26 ml/min; Estimated Glomerular Filt Rate 21; Glucose 155 mg/dL (65-110); Potassium 4.7 mmol/L (3.4-5.0); Sodium 134 mmol/L (137-145)
[2022-07-07 06:47] LABS: Anisocytosis 1+ (NORMAL); Hypochromasia 2+ (NORMAL); Microcytosis 1+ (NORMAL); Platelet Estimate Adequate (Adequate)
[2022-07-07 07:39] LABS: Glucose Point of Care 147 mg/dl (65-105)
--- NOTE | 2022-07-07 08:18 | PM.CNCAR ---
Assessment and Plan Assessment and plan (1) Acute exacerbation of congestive heart failure: Code(s): I50.9 - Heart failure, unspecified Status: Acute Assessment and Plan: Resolved. Due to high output failure from anemia, acute on chronic diastolic heart failure, pulm hypertension. Echo shows EF 65%, mild LVH, grade I diastolic dysfunction (E/e' 12), mod TR, severe BASILIO, mild RVE, mild LAE, severe pulm hypertension with RVSP 84 mmHg. Hold off on diuresis as she appears euvolemic or even on dry side. No further cardiac workup at this time. (2) Acute exacerbation of chronic obstructive pulmonary disease: Code(s): J44.1 - Chronic obstructive pulmonary disease with (acute) exacerbation Status: Acute Assessment and Plan: Pulm following. (3) Pulmonary hypertension: Code(s): I27.20 - Pulmonary hypertension, unspecified Status: Acute Assessment and Plan: She was transferred to [facility] in Nov 2021 for this. (4) Diabetes mellitus: Qualifiers: Diabetes mellitus type: type 2 Diabetes mellitus shelter insulin use: without patient consumer marketer use Diabetes mellitus complication status: with hyperglycemia Qualified Code(s): E11.65 - Type 2 diabetes mellitus with hyperglycemia Code(s): E11.9 - Type 2 diabetes mellitus without complications Status: Chronic Assessment and Plan: Management as per hospitalist. (5) Hyperlipidemia: Qualifiers: Hyperlipidemia type: unspecified Qualified Code(s): E78.5 - Hyperlipidemia, unspecified Code(s): E78.5 - Hyperlipidemia, unspecified Status: Chronic Assessment and Plan: On Atorvastatin and Zetia. History of Present Illness History of Present Illness Consult date/time: 07/07/22 08:18 Consult reason: congestive heart failure Reason For Visit: respiratory failure, anemia, CHF Narrative: 62 yr old woman who is my regular cardiology patient presents to ER with sob. She has a history of COPD (sees Alvarado Mcfadden) on home oxygen at 6 l/m, quit smoking in Aug 2019, [place] on CPAP, hypertension, dyslipidemia, DM, diastolic heart failure, severe pulm hypertension, chronic anemia, PFO. ? She has been here for 6 days. States she was having more sob and swelling of legs prior to admission, and had her diuretic stopped by her PCP. Today she feels good. No chest pain or sob or leg swelling. She was here in April 2022 for the same and covid infection. She can walk minimal distance just in her house with a walker due to [place] and is on 6 l/m oxygen all the time.? Denies chest pain, palpitations, dizziness. Cardiovascular Procedures Echo/MUGA:: 11/20/21 Echo: EF 65-70%, grade I diastolic dysfunction (E/e' 15), mod LVH, mild LAE, mod BASILIO, severe posterior MAC, mild-mod TR, RVSP 69 mmHg. Subsequent limited echo shows PFO. 07/14/21 Echo: EF 65-70%, grade I diastolic dysfunction, mod LVH, mild RVE, mod BASILIO, mild TR, RVSP 46 mmHg. 07/13/20 Echo: EF >70%, mild LVH, mild LAE, RVSP 66 mmHg. Electrophysiology:: 11/19/21 EKG: Sinus rhtyhm, IVCD, borderline T wave in high lateral leads. 07/14/21 EKG: Sinus rhythm, IRBBB, borderline T wave in lat/high lat leads. 07/13/20: 2 day event monitor: Sinus rhythm, HR range 50-120 bpm; average 74 bpm. 07/11/20 EKG: Sinus rhythm with sinus arrhythmia, frequent PAC's, borderline ST-T wave in high lateral leads. Stress Tests:: 07/22/21 CXR: CHF. 07/13/20 CXR: Mild CHF. Review of Systems Review of Systems: All systems reviewed & are unremarkable except as noted in HPI and below Constitutional: Constitutional: Reports as per HPI, Denies chills and Denies fever(s) Cardiovascular: Cardiovascular: Reports as per HPI, Denies chest pain, Denies irregular heart rhythm and Denies leg edema Respiratory: Respiratory: Reports as per HPI and Denies dyspnea Gastrointestinal: Gastrointestinal: Reports as per HPI and Denies abdominal pain Genitourinary: Genitourinary: Reports as per HPI and Denies dysuria Musculo
[2022-07-07] MEDS: UMECLIDINIUM/VILANTEROL 62.5-25 MCG ELLIPTA 1 PUFF INHALATION (08:20)
--- NOTE | 2022-07-07 09:07 | PCNWS ---
Weekly nutritional screen. Patient is tolerating current diet with adequate intake. No weight loss reported. No nutritional needs at this time.
[2022-07-07] MEDS: PANTOPRAZOLE 40 MG TABLET PO ×2 (09:30→18:01)
[2022-07-07] MEDS: GABAPENTIN 100 MG CAPSULE PO ×3 (09:30→18:01)
[2022-07-07] MEDS: POLYSACCHARIDE IRON COMPLEX 150 MG CAPSULE PO ×2 (09:30→18:01)
[2022-07-07] MEDS: TOLNAFTATE 1% POWDER 45 GM BTL 1 APPLIC TOPICAL (09:31)
[2022-07-07] MEDS: EZETIMIBE 10 MG TABLET PO (09:31)
[2022-07-07] MEDS: ATORVASTATIN 40 MG TABLET PO (09:31)
--- NOTE | 2022-07-07 09:53 | PM.IMPN ---
Subjective Date/time seen: 07/07/22 09:53 dc planning Objective Data Vital Signs Vital Signs: Vital Signs - 24 hr 07/06/22 10:00 07/06/22 12:50 07/06/22 13:06 Temperature 97.7 F Pulse Rate 92 93 95 Respiratory Rate 20 20 Blood Pressure 91/60 L Pulse Oximetry 94 Oxygen Delivery Oxygen Flow Rate Fraction of Inspired Oxygen 07/06/22 12:00 07/06/22 12:00 07/06/22 13:15 Temperature Pulse Rate 93 92 Respiratory Rate 18 Blood Pressure Pulse Oximetry 94 Oxygen Delivery High Flow Nasal Cannula Oxygen Flow Rate 8 Fraction of Inspired Oxygen 07/06/22 14:00 07/06/22 14:00 07/06/22 16:00 Temperature Pulse Rate 97 96 Respiratory Rate Blood Pressure Pulse Oximetry 94 Oxygen Delivery High Flow Nasal Cannula Oxygen Flow Rate 8 Fraction of Inspired Oxygen 07/06/22 16:00 07/06/22 16:41 07/06/22 18:00 Temperature 98.3 F Pulse Rate 90 91 94 Respiratory Rate 22 H Blood Pressure 100/62 Pulse Oximetry 92 Oxygen Delivery Oxygen Flow Rate Fraction of Inspired Oxygen 07/06/22 20:00 07/06/22 20:37 07/06/22 20:38 Temperature 97.9 F Pulse Rate 91 99 Respiratory Rate 20 20 Blood Pressure 91/53 L Pulse Oximetry 94 95 Oxygen Delivery High Flow Nasal Cannula Oxygen Flow Rate 8 Fraction of Inspired Oxygen 07/06/22 20:49 07/06/22 20:00 07/06/22 20:00 Temperature Pulse Rate 92 96 96 Respiratory Rate 20 20 Blood Pressure Pulse Oximetry 95 Oxygen Delivery High Flow Nasal Cannula Oxygen Flow Rate 8 Fraction of Inspired Oxygen 40 07/06/22 22:00 07/06/22 23:00 07/06/22 23:53 Temperature 97.7 F Pulse Rate 96 97 94 Respiratory Rate 23 H 20 Blood Pressure 99/66 L Pulse Oximetry 96 91 Oxygen Delivery BiPAP Oxygen Flow Rate Fraction of Inspired Oxygen 07/07/22 00:00 07/07/22 00:00 07/07/22 03:11 Temperature Pulse Rate 93 93 96 Respiratory Rate 20 23 H Blood Pressure Pulse Oximetry 91 95 Oxygen Delivery BiPAP BiPAP Oxygen Flow Rate Fraction of Inspired Oxygen 40 07/07/22 03:11 07/07/22 03:18 07/07/22 02:00 Temperature Pulse Rate 96 99 90 Respiratory Rate 23 H 22 H Blood Pressure Pulse Oximetry Oxygen Delivery Oxygen Flow Rate Fraction of Inspired Oxygen 07/07/22 04:00 07/07/22 04:00 07/07/22 04:00 Temperature 97.7 F Pulse Rate 89 89 85 Respiratory Rate 22 H 20 Blood Pressure 101/63 Pulse Oximetry 95 98 Oxygen Delivery BiPAP Oxygen Flow Rate Fraction of Inspired Oxygen 40 07/07/22 04:44 07/07/22 06:00 07/07/22 07:49 Temperature 97.1 F L Pulse Rate 92 85 85 Respiratory Rate 27 H 20 Blood Pressure 78/60 L Pulse Oximetry 96 93 Oxygen Delivery BiPAP Oxygen Flow Rate Fraction of Inspired Oxygen 07/07/22 08:20 07/07/22 08:23 07/07/22 08:36 Temperature Pulse Rate 85 85 88 Respiratory Rate 20 18 Blood Pressure Pulse Oximetry 93 Oxygen Delivery High Flow Nasal Cannula Oxygen Flow Rate 8 Fraction of Inspired Oxygen Intake/Output Intake/Output: Intake & Output 07/04/22 07/05/22 07/06/22 07/07/22 23:59 23:59 23:59 23:59 Intake Total 1180 1160 1170 300 Output Total 950 875 700 400 Balance 230 285 470 -100 Meds/Results Medications: Active Medications Generic Name Dose Route Start Last Admin Trade Name Freq PRN Reason Stop Dose Admin Albuterol 5 mg 07/01/22 02:00 07/07/22 08:19 Albuterol Sulfate Neb 2.5 Mg/3 Ml Inh INHALATION 5 mg Q6HRT EMIR Administration Amlodipine Besylate 2.5 mg 07/03/22 11:05 07/06/22 12:10 Amlodipine Besylate 2.5 Mg Tablet PO Not Given QAM [facility] Atorvastatin Calcium 40 mg 07/01/22 09:00 07/07/22 09:31 Atorvastatin 40 Mg Tablet PO 40 mg DAILY EMIR Administration Benzocaine 1 lozenge 07/06/22 12:09 Benzocaine/Menthol (*Bkc) 18 Ea Lozenge PO PRN PRN dry mouth cough Dextrose 12.5 gm 07/01/22 06:1
[2022-07-07] MEDS: SODIUM CHLORIDE 0.9% IV 250 ML 75 ML IV CONT (10:51)
[2022-07-07 12:19] LABS: Glucose Point of Care 240 mg/dl (65-105)
[2022-07-07] MEDS: INSULIN ASPART (*BKC) 100 UNITS/ML SUB-Q (12:34)
[2022-07-07 17:11] LABS: Glucose Point of Care 145 mg/dl (65-105)
--- NOTE | 2022-07-07 17:21 | PM.DS ---
DS: Admitting Diagnosis Discharge Date 07/07/22 Admitting Diagnosis (1) Severe anemia: ?Code(s): D64.9 - Anemia, unspecified ?Status:?Acute ?Assessment and Plan: (2) Obstructive sleep apnea treated with BiPAP: ?Code(s): G47.33 - Obstructive sleep apnea (adult) (pediatric) ?Status:?Acute ?Assessment and Plan: (3) Acute and chronic respiratory failure: ?Code(s): J96.20 - Acute and chronic respiratory failure, unspecified whether with hypoxia or hypercapnia ?Status:?Acute ?Assessment and Plan: (4) Pulmonary hypertension: ?Code(s): I27.20 - Pulmonary hypertension, unspecified ?Status:?Acute ?Assessment and Plan: (5) Acute exacerbation of congestive heart failure: ?Code(s): I50.9 - Heart failure, unspecified ?Status:?Acute ?Assessment and Plan: (6) Elevated d-dimer: ?Code(s): R79.89 - Other specified abnormal findings of blood chemistry ?Status:?Acute ?Assessment and Plan: (7) Chronic kidney disease, stage IV (severe): ?Code(s): N18.4 - Chronic kidney disease, stage 4 (severe) ?Status:?Chronic ?Assessment and Plan: DS: Discharge Diagnosis Discharge Diagnosis (1) Severe anemia: Code(s): D64.9 - Anemia, unspecified Status: Acute (2) Obstructive sleep apnea treated with BiPAP: Code(s): G47.33 - Obstructive sleep apnea (adult) (pediatric) Status: Acute (3) Acute and chronic respiratory failure: Code(s): J96.20 - Acute and chronic respiratory failure, unspecified whether with hypoxia or hypercapnia Status: Acute (4) Pulmonary hypertension: Code(s): I27.20 - Pulmonary hypertension, unspecified Status: Acute (5) Acute exacerbation of congestive heart failure: Code(s): I50.9 - Heart failure, unspecified Status: Acute (6) Elevated d-dimer: Code(s): R79.89 - Other specified abnormal findings of blood chemistry Status: Acute (7) Chronic kidney disease, stage IV (severe): Code(s): N18.4 - Chronic kidney disease, stage 4 (severe) Status: Chronic DS: Summary Hospital Course Reason for hospitalization: Chief Complaint: Shortness of breath Narrative: 62-year-old female with past medical history of chronic lung disease, severe pulmonary hypertension with right to left shunt, grade 1 diastolic dysfunction, obstructive sleep apnea noncompliant with BiPAP, chronic kidney disease stage 3 and chronic hypercapnic hypoxic respiratory who presented to the ER via EMS with shortness of breath.? Patient was hospitalized about a month and a half ago for CHF exacerbation.? She reports that when she was discharged home her primary care physician stopped her Lasix and her losartan.? Since he was discharged from the hospital she has not been using her BiPAP as she feels like it does not work.? She reports that for the last couple of weeks she has had increasing shortness of breath and orthopnea.? She also had paroxysmal nocturnal dyspnea and has to sit up about every 15 minutes.? She then ends up sitting up all night and not really sleeping.? She has noticed increased abdominal swelling over the last 3 weeks or so and is increased lower extremity swelling for the last 3 days or so.? Over the last 3 days she has also developed some tightness in her lower chest which she reports usually happens when she starts to swell.? She reports that her shortness of breath was quite severe until EMS gave her sublingual nitro which improved her symptoms.? She also reports that switching to the oxygen at the hospital seem to help her symptoms.? She received 80 mg of IV Lasix in the ER and is only had 150 mL and urine output.? She has a Pope catheter in place from monitoring strict I&O's.? She denies any cough, congestion or fevers.? She denies any dysuria or changes in urinary frequency.? She reports that she has become progressively more weak due to her symptoms.? She ambulates
--- NOTE | 2022-07-08 09:13 | WPDCDIQUERY2 ---
CDI Query Clarification Request 07/06 Pulmonary documented: -Chronic obstructive pulmonary disease: ?Code(s): J44.9 - Chronic obstructive pulmonary disease, unspecified ?Status:?Acute Subjective Date/time seen: 07/06/22? 10:07 ?patient has no new respiratory symptoms.? Stated she feels better today.? Used BiPAP support last night.? Pedal edema also less today.? Blood pressure remains borderline.? Diuretics and blood pressure medications on hold. ?07/07 Cardiology documented: -Acute exacerbation of chronic obstructive pulmonary disease: ?Code(s): J44.1 - Chronic obstructive pulmonary disease with (acute) exacerbation ?Status:?Acute ?Assessment and Plan: Pulm following. -EXAMINATION: XR chest 2V DATE: 07/03/2022 11:06 INDICATION: Shortness of breath. TECHNIQUE: Frontal and lateral views of the chest were obtained. COMPARISON: Chest single view 06/30/2022, chest CT 07/02/2022 FINDINGS: There are small pleural effusions. There are interstitial opacities in the mid and lower lung zones, likely mild pulmonary edema. No pneumothorax. Cardiomegaly is noted. IMPRESSION: 1. Mild pulmonary edema. 2. Small pleural effusions. 3. Cardiomegaly. Please clarify if diagnosis, Chronic Obstructive Pulmonary Disease is: -Acute with exacerbation -Chronic -Other -Unable to determine <Marjoriedon Pete - Last Filed: 07/08/22 09:25> 07/06 Pulmonary documented: -Chronic obstructive pulmonary disease: ?Code(s): J44.9 - Chronic obstructive pulmonary disease, unspecified ?Status:?Acute Subjective Date/time seen: 07/06/22? 10:07 ?patient has no new respiratory symptoms.? Stated she feels better today.? Used BiPAP support last night.? Pedal edema also less today.? Blood pressure remains borderline.? Diuretics and blood pressure medications on hold. ?07/07 Cardiology documented: -Acute exacerbation of chronic obstructive pulmonary disease: ?Code(s): J44.1 - Chronic obstructive pulmonary disease with (acute) exacerbation ?Status:?Acute ?Assessment and Plan: Pulm following. -EXAMINATION: XR chest 2V DATE: 07/03/2022 11:06 INDICATION: Shortness of breath. TECHNIQUE: Frontal and lateral views of the chest were obtained. COMPARISON: Chest single view 06/30/2022, chest CT 07/02/2022 FINDINGS: There are small pleural effusions. There are interstitial opacities in the mid and lower lung zones, likely mild pulmonary edema. No pneumothorax. Cardiomegaly is noted. IMPRESSION: 1. Mild pulmonary edema. 2. Small pleural effusions. 3. Cardiomegaly. Please clarify if diagnosis, Chronic Obstructive Pulmonary Disease is: -Acute with exacerbation -Chronic -Other -Unable to determine acute on chronic pulmonary obstructive disease -Acute with exacerbation <Cathie Ybarra MD - Last Filed: 07/08/22 17:00>
== END 2022-07-07 19:40 | disposition home health service (06) | DRG 291 ==
LOC: ANHED 21:38 → ANHIMU 07-01 07:33
PROVIDERS: Emergency Medicine; Hospitalist; Admitting Provider Internal Medicine; Emergency Provider Emergency Medicine; PCP Internal Medicine Infectious Disease; Visit Provider Student in an Organized Health Care Education/Training Program
DX: I13.0 Hypertensive heart and chronic kidney disease with heart failure and stage 1 through stage 4 chronic kidney disease, or unspecified chronic kidney disease (principal); I50.33 Acute on chronic diastolic (congestive) heart failure; J96.21 Acute and chronic respiratory failure with hypoxia; J96.22 Acute and chronic respiratory failure with hypercapnia; N18.4 Chronic kidney disease, stage 4 (severe); J44.1 Chronic obstructive pulmonary disease with (acute) exacerbation; I27.20 Pulmonary hypertension, unspecified; E11.22 Type 2 diabetes mellitus with diabetic chronic kidney disease; D50.9 Iron deficiency anemia, unspecified; G47.33 Obstructive sleep apnea (adult) (pediatric); R79.89 Other specified abnormal findings of blood chemistry; E78.5 Hyperlipidemia, unspecified; Z66 Do not resuscitate; Z79.84 Long term (current) use of oral hypoglycemic drugs; Z79.899 Other long term (current) drug therapy; Z87.891 Personal history of nicotine dependence; Z88.0 Allergy status to penicillin; Z88.2 Allergy status to sulfonamides; Z91.19 Patient's noncompliance with other medical treatment and regimen; Z86.16 Personal history of COVID-19; Z99.81 Dependence on supplemental oxygen
CPT/HCPCS: 36415; 36430; 36600; 71045; 71046; 71250; 78580; 80048; 80053; 81001; 82274; 82805; 82948; 83605; 83880; 84145; 84484; 85014; 85018; 85025; 85027; 85055; 85380; 85610; 85730; 86140; 86850; 86900; 86901; 86920; 87040; 87081; 87880; 93005; 94002; 94003; 94640; 97110; 97161; 97165; 99285; A9270; A9540; J1200; J1815; J1940; J2930; J7050; P9016